=== PATIENT | male | born 1940 | race African-American/Black ===

== ENCOUNTER 2016-09-20 19:22 | Inpatient (IN) | payer MEDICARE, MEDICAID ==
--- NOTE | 2016-09-20 19:42 | ER Document Report ---
ED General - General Stated Complaint: STROKE ALERT Mode of Arrival: Medic Information source: Patient Notes: 75-year-old male history of multiple CVAs presents with sudden left facial droop difficulty with speech difficulty with his swallowing his saliva at 5 PM. Patient denies any fevers or chills is able to follow commands but is unable to express himself verbally. Patient is able to write TRAVEL OUTSIDE OF THE [place] IN LAST 30 DAYS: No - HPI Onset: Just prior to arrival Onset/Duration: Sudden Quality of pain: No pain Severity: Severe Pain Level: Denies Associated symptoms: Other Exacerbated by: Denies Relieved by: Denies Similar symptoms previously: Yes Recently seen / treated by doctor: Yes - Related Data Allergies/Adverse Reactions: No Known Allergies Allergy (Verified 09/20/16 21:14) Past Medical History - Social History Smoking Status: Never Smoker Cigarette use (# per day): No Chew tobacco use (# tins/day): No Smoking Education Provided: No Family History: Reviewed & Not Pertinent - Past Medical History Cardiac Medical History: Reports: Hx Coronary Artery Disease - stent x 1, Hx Heart Attack - 2003, Hx Hypertension, Hx Peripheral Vascular Disease Pulmonary Medical History: Reports: Hx Asthma - as child Denies: Hx Bronchitis, Hx COPD, Hx Pneumonia, Hx Tuberculosis Neurological Medical History: Denies: Hx Cerebrovascular Accident, Hx Seizures Endocrine Medical History: Reports: Hx Diabetes Mellitus Type 2 Renal/ Medical History: Reports: Hx Benign Prostatic Hyperplasia GI Medical History: Denies: Hx Hepatitis, Hx Hiatal Hernia, Hx Ulcer Musculoskeltal Medical History: Denies Hx Arthritis Psychiatric Medical History: Reports: Hx Dementia Denies: Hx Anxiety, Hx Attention Deficit Hyperactivity Disorder, Hx Bipolar Disorder, Hx Borderline Personality Disorder, Hx Depression, Hx Obsessive Compulsive Disorder, Hx Personality Disorder, Hx Schizoaffective Disorder, Hx Schizophrenia Traumatic Medical History: Denies: Hx Fractures, Hx Gunshot Wound, Hx Liver Laceration, Hx Pneumothorax, Hx Spine Fracture, Hx Spleen Laceration/Rupture, Hx Traumatic Brain Injury Infectious Medical History: Denies: Hx Hepatitis Past Surgical History: Reports: Hx Internal Defibrillator, Hx Vascular Surgery - left groin. Denies: Hx Open Heart Surgery - Immunizations Hx Diphtheria, Pertussis, Tetanus Vaccination: No Review of Systems - Review of Systems Notes: PHYSICAL EXAMINATION: GENERAL: Well-appearing, well-nourished and in no acute distress. HEAD: Atraumatic, normocephalic. EYES: Pupils equal round and reactive to light, extraocular movements intact, sclera anicteric, conjunctiva are normal. ENT: Nares patent, oropharynx clear without exudates. Moist mucous membranes. NECK: Normal range of motion, supple without lymphadenopathy LUNGS: Breath sounds clear to auscultation bilaterally and equal. No wheezes rales or rhonchi. HEART: Regular rate and rhythm without murmurs ABDOMEN: Soft, nontender, nondistended abdomen. No guarding, no rebound. No masses appreciated. Musculoskeletal: Normal range of motion, no pitting or edema. No cyanosis. NEUROLOGICAL: Please see NIH score PSYCH: Normal mood, normal affect. SKIN: Warm, Dry, normal turgor, no rashes or lesions noted. Physical Exam - Vital signs Vitals: Resp 17 09/20/16 19:33 Course - Re-evaluation Re-evalutation: 09/20/16 19:41 Patient is having obvious CVA at this time, he has left facial droop hemiparesis , patient's having difficulty with speech. Patient immediately sent to CT after I checked him out at the ambulance. 09/20/16 19:44 I spoke with the patient he is able to write his name and is oriented to person place and time. Patient notes his symptoms started after 5 PM which would put him in the window for thrombolytics however I did offer the patient this and he writes no and shakes his head stating that he does not wish to have this medication. I did ask the patient if he wishes to be intubated if necessary and he states yes by nodding his head to this question. Patient is drooling and may require intubation shortly but is currently protecting his airway called number listed for patient, no response 09/20/16 20:27 09/20/16 21:02 Dr Carter contacted, he will call back 09/20/16 21:52 Patient will be admitted to the hospital service and is not a TPA candidate family agrees with this plan 09/20/16 21:53 - Vital Signs Vital signs: Temp Pulse Resp BP Pulse Ox 20 172/83 H 89 L 09/20/16 21:01 09/20/16 21:01 09/20/16 21:01 - Laboratory Result Diagrams: 09/20/16 19:40 09/20/16 19:40 Laboratory results interpreted by me: 09/20/16 09/20/16 09/20/16 19:40 19:40 19:40 MCH 26.8 L RDW 15.1 H Seg Neutrophils % 83.7 H Lymphocytes % 11.4 L APTT 38.1 H Glucose 202 H - Diagnostic Test Radiology reviewed: Image reviewed, Reports reviewed - EKG Interpretation by Me EKG shows normal: Sinus rhythm, [place], Intervals, QRS Complexes When compared to previous EKG there are: Changes noted - Inverted T wave in V4 has resolved Discharge - Discharge Clinical Impression: Weakness of left side of body Cerebrovascular accident (CVA) Qualifiers: CVA mechanism: unspecified Qualified Code(s): I63.9 - Cerebral infarction, unspecified Condition: Fair Disposition: ADMITTED INPATIENT Admitting Provider: Hospitalist Unit Admitted: [facility]
[2016-09-20 19:51] LABS: ABSOLUTE LYMPHOCYTES (AUTO) 0.5 10^3/uL (0.5-4.7); ABSOLUTE MONOCYTES (AUTO) 0.2 10^3/uL (0.1-1.4); ABSOLUTE NEUT (AUTO) 3.5 10^3/uL (1.7-8.2); BASOPHILS % (AUTO) 0.4 % (0-2); EOSINOPHILS % (AUTO) 0.5 % (0-6); HEMATOCRIT 42.7 % (37.9-51.0); HEMOGLOBIN 14.2 g/dL (13.5-17.0); HGB HCT DIFFERENCE -0.1; LYMPHOCYTES % (AUTO) 11.4 % (13-45); MEAN CORPUSCULAR HEMOGLOBIN 26.8 pg (27.0-33.4); MEAN CORPUSCULAR HGB CONC 33.3 g/dL (32.0-36.0); MEAN CORPUSCULAR VOLUME 80 fl (80-97); RED BLOOD COUNT 5.32 10^6/uL (4.35-5.55); RED CELL DISTRIBUTION WIDTH 15.1 % (11.5-14.0); SEGMENTED NEUTROPHILS % (AUTO) 83.7 % (42-78); WHITE BLOOD COUNT 4.2 10^3/uL (4.0-10.5)
[2016-09-20 19:57] LABS: PROTHROMBIN TIME 14.4 SEC (11.4-15.4)
[2016-09-20 19:58] LABS: PARTIAL THROMBOPLASTIN TIME 38.1 SEC (23.5-35.8)
[2016-09-20 20:15] LABS: ALANINE AMINOTRANSFERASE 37 U/L (21-72); ALBUMIN 3.9 g/dL (3.5-5.0); ALKALINE PHOSPHATASE 77 U/L (38-126); ANION GAP 12 (5-19); ASPARTATE AMINO TRANSFERASE 18 U/L (17-59); BILIRUBIN,TOTAL 0.6 mg/dL (0.2-1.3); BLOOD UREA NITROGEN 18 mg/dL (7-20); CALCIUM 9.8 mg/dL (8.4-10.2); CARBON DIOXIDE 23 mmol/L (22-30); CHLORIDE 105 mmol/L (98-107); CREATINE KINASE 80 U/L (55-170); CREATININE RESULT 0.99 mg/dL (0.52-1.25); GLUCOSE 202 mg/dL (75-110); POTASSIUM 4.6 mmol/L (3.6-5.0); SODIUM 139.5 mmol/L (137-145); TOTAL PROTEIN 7.6 g/dL (6.3-8.2)
[2016-09-20 20:27] LABS: CREATINE KINASE MB 1.49 ng/mL (<4.55); TROPONIN I 0.033 ng/mL
[2016-09-20] MEDS ORDERED: ASPIRIN 325 MG TABLET PO ONE (21:42)
--- NOTE | 2016-09-20 22:14 | ER Document Report ---
ED NIH Stroke Scale - NIH Stroke Scale When completed:: Before Alteplase *: 1. NIH scale should be completed with appropriate accompanying assessment tools. *: 2. The NIH should reflect what the patient is capable of doing and should not be coached by the clinician. 1a. Level of Consciousness: 0=Alert;keenly responsive -: 1=Drowsy -: 2=Obtunded -: 3=Coma/unresponsive or reflex to noxious stimuli. 1a. Responses: 0 1b. Orientation Questions: a. What month is it? -: b. How old are you? -: 0=Answers both questions correctly. -: 1=Answers one question correctly or patient is intubated or has orotracheal trauma. -: 2=Answers neither question correctly. 1b. Responses: 1 1c. Response to commands: a. Open and close eyes? -: b. Wrapper Counter and release hand? -: Credit is given despite weakness. Demonstration of task is permitted. Substitute command if hands cannot be used. -: 0=Performs both tasks correctly -: 1=Performs one task correctly -: 2=Performs neither task correctly 1c. Responses: 1 2. Gaze: Establish eye contact and instruct patient to "Follow my finger" -: 0=Normal -: 1=Partial gaze palsy. Gaze is abnormal in one or both eyes, but where forced deviation or total gaze paresis is not present. -: 2=Forced deviation or total gaze paresis. 2. Responses: 1 3. Visual [place]: Sees fingers in all four quadrants. -: 0=No visual loss. -: 1=Partial hemianopsia. -: 2=Complete hemianopsia. -: 3=Bilateral hemianopsia (including Cortical blindness) 3. Responses: 2 4. Facial Movement: Instruct patient to: -: a. Show me your teeth -: b. Raise your eyebrows -: c. Close your eyes -: d. Smile -: 0=Normal symmetrical movement -: 1=Minor paralysis (flattened nasolabial fold, asymmetry on smiling). -: 2=Partial paralysis (total or near total paralysis of lower face). -: 3=Complete paralysis of upper and lower face 4. Responses: 2 5. Motor functions (left arm): Alternate sides and extend each arm with palms down (90 degrees if sitting or 45 degrees for supine). -: 0=No drift;limb holds for full 10 seconds. -: 1=Drift; limb holds but drifts down before full 10 seconds, but does not hit bed. -: 2=Some effort against gravity; limb cannot get to or maintain position. -: 3=No effort against gravity; limb falls. -: 4=No movement. -: UN=Amputation, joint fusion, explain in comments. 5. Responses (left arm): 4 5. Motor Functions (right arm): Alternate sides and extend each arm with palms down (90 degrees if sitting or 45 degrees for supine). -: 0=No drift;limb holds for full 10 seconds. -: 1=Drift; limb holds but drifts down before full 10 seconds, but does not hit bed. -: 2=Some effort against gravity; limb cannot get to or maintain position. -: 3=No effort against gravity; limb falls. -: 4=No movement. -: UN=Amputation, joint fusion, explain in comments. 5. Responses (right arm): 0 6. Motor Functions (left leg): With patient lying supine, alternate sides and extend each leg (30 degrees always while supine). -: 0=No drift, leg holds position for full 5 seconds -: 1=Drift; leg falls before full 5 seconds but does not hit bed. -: 2=Some effort against gravity, leg falls to bed but some effort against gravity. -: 3=No effort against gravity, leg falls to bed immediately. -: 4=No movement. -: UN=Amputation, joint fusion; explain in comments. 6. Responses (left leg): UN 6. Motor Functions (right leg): With patient lying supine, alternate sides and extend each leg (30 degrees always while supine). -: 0=No drift, leg holds position for full 5 seconds -: 1=Drift; leg falls before full 5 seconds but does not hit bed. -: 2=Some effort against gravity, leg falls to bed but some effort against gravity. -: 3=No effort against gravity, leg falls to bed immediately. -: 4=No movement. -: UN=Amputation, joint fusion; explain in comments. 6. Responses (right leg): 0 7. Limb Ataxia: With eyes open instruct patient to: -: a. "Touch your finger to your nose". -: b. "Touch your heel to your dinh" -: 0=Absent -: 1=Present in one limb. -: 2=Present in two limbs. -: UN=Amputation or joint fusion; explain in comments. 7. Responses: 1 7. If ataxia present choose as appropriate: Left arm, Left leg 8. Sensory: Test sensation using pinprick or noxious stimuli. Test as many body parts as possible. -: 0=Normal;no sensory loss -: 1=Mile to moderate sensory loss (patient feels pin prick but is less sharp on affected side). -: 2=Severe or total sensory loss. 8. Responses: 1 9. Best Language: Instruct patient to: -: a. "Describe what you see in this picture." -: b. "Name the items in this picture." -: c. "Read these sentences." -: 0=No aphasia, normal -: 1=Mild to moderate aphasia. -: 2=Severe aphasia -: 3=Mute, global aphasia, no usable speech or auditory comprehension. 9. Responses: 3 10. Articulation, Dysarthia: Instruct patient to: -: "Read these words" or "Repeat these words" -: 0=Normal -: 1=Mild to moderate; patient may slur some words but can be understood without difficulty. -: 2=Severe; patients speech so slurred as to be unintelligible in the absence of dysphasia. -: UN=Intubated or other physical barrier, explain in comments. 10. Responses: 2 11. Extinction or inattention: 0=No abnormality -: 1= Visual, tactile, auditory, spatial, or personal inattention or extinction to bilateral simulation in one or the sensory modalities. -: 2=Profound husam-inattention or husam-inattention to more than one modality; does not recognize own hand. 11. Responses: 2 Total Score: 20
[2016-09-21] MEDS ORDERED: GLUCAGON,HUMAN RECOMB 1 MG INJ IM PRN (03:23)
[2016-09-21] MEDS ORDERED: DEXTROSE 50%-WATER 25 GM/50 ML DISP.SYRIN IV PRN ×2 (03:23)
[2016-09-21] MEDS ORDERED: NORMAL SALINE 1000 ML 1,000 ML IV PRN (03:23)
[2016-09-21] MEDS ORDERED: DEXTROSE 40% GEL 15 GM TUBE PO PRN ×2 (03:23)
[2016-09-21] MEDS ORDERED: INSULIN LISPRO 100 UNIT/ML 3 ML VIAL SUBCUT PRN (03:23)
[2016-09-21] MEDS ORDERED: ACETAMINOPHEN 650 MG SUPP.RECT PR PRN (03:25)
[2016-09-21 06:45] LABS: CHOLESTEROL 166.88 mg/dL (0-200); Direct HDL 54 mg/dL (>40); MAGNESIUM 1.9 mg/dL (1.6-2.3); TRIGLYCERIDES 46 mg/dL (<150)
[2016-09-21 06:55] LABS: DIRECT LDL 80 mg/dL (<100)
[2016-09-21 06:58] LABS: APPEARANCE,URINE SLIGHTLY-CLOUDY; BILIRUBIN,URINE NEGATIVE (NEGATIVE); GLUCOSE, URINE NEGATIVE (NEGATIVE); KETONES,URINE NEGATIVE (NEGATIVE); LEUKOCYTE ESTERASE,URINE LARGE (NEGATIVE); NITRITE,URINE NEGATIVE (NEGATIVE); PROTEIN,URINE 100 mg/dL (NEGATIVE); URINE SPECIFIC GRAVITY 1.008; UROBILINOGEN,URINE NEGATIVE mg/dL (<2.0)
[2016-09-21] MEDS: ENOXAPARIN SODIUM INJ 40 MG/0.4 ML DISP.SYRIN SUBCUT SCH (08:00)
--- NOTE | 2016-09-21 09:53 | PDOC H&P ---
History of Present Illness Admission Date/PCP: 09/20/16 22:08 Patient complains of: Stroke Symptoms History of Present Illness: SEUN TOTH is a 75 year old -[place] male with a history of prior strokes who presented to the emergency room for evaluation of sudden onset of left facial droop, aphasia, and difficulty swallowing his saliva at approximate 5 PM on the . Patient denied any fever chills. Was able to follow commands, but unable to express himself verbally. Was initially able to write on a tablet. Was offered TPA by the emergency room physician, but declined. Patient has been discussed with emergency room physician who evaluated the patient. Patient is completely aphasic and is able to provide no history whatsoever in terms of acute or chronic events, review of systems, personal habits, family history, etc. No friends or family are present. Old inpatient records are reviewed. When patient does write on a piece of paper currently, it typically is the same 3 or 4 letters over and over. Never forms an actual word. Patient does shake his head when asked if he is having any pain. Patient did pass along to the emergency room physician that he would be willing to be intubated if necessary. . No further information available this point in time. Laboratory results are listed in [facility] and are reviewed. X-ray summary results are listed below, with full report(s) reviewed. . EKG reviewed and compared to a tracing from July 17 of last year Social history/personal habits: No information available this point in time. Allergies/adverse reactions NKDA. Home medications Home medications initially autopopulated into [employer] Dashboard may not accurately reflect patient's true medications, dosages, and/or frequencies. Order has been entered for staff to contact family, outpatient physician, and/ or pharmacy to more accurately determine medications, dosages, and frequencies and to contact physician when that has been accomplished. REVIEW OF SYSTEMS: See history and present illness. No further information available this point in time. PHYSICAL EXAMINATION: 6 feet 3 inches tall. 83.3 kg. BMI 23 kg/m. After 98.8. Blood pressure 140/ 66. Pulse 111 and regular. 92% saturation on 2 L oxygen per nasal cannula. Respirations are 25 and unlabored. Thin otherwise well-developed elderly -[place] male who appears a number of years younger than his stated age. Awake alert and cooperative. Somewhat anxious, but no agitation. Appears perhaps slightly fatigued, and overall not to feel very well. Skin is warm and dry. No grossly obvious evidence of rash in areas of skin examined. No subcutaneous nodules palpated. ENT: Hearing difficult to adequately evaluate due to his current status, but does look at speaker when addressed in a normal volume voice Eyes: No scleral icterus. Pupils equal and reactive to light at 4 mm. [place] conjunctivae. Neck is supple and nontender to gentle active range of motion and palpation. Midline trachea. No palpable thyroid nodule mass enlargement or tenderness. Lymphatic: No palpable cervical or clavicular nodes. Neck and lymphatic exams limited by patient body habitus. Psychiatric: Can't be adequately evaluated due to his current status. Lungs: Auscultation reveals clear and equal breath sounds bilaterally. No use of accessory respiratory muscles. Mild upper airway sounds from patient saliva. Cardiovascular: Heart regular rate and rhythm, without gallop murmur or rub. No carotid or abdominal aortic bruits. Minimal right ankle and pedal edema. Faintly palpable dorsalis pedis pulse. Abdomen: soft, , slightly distended nontender with positive bowel sounds. Unable to adequately evaluate abdomen for masses or organomegaly due to distention. Extremities: Hands and right foot are warm and dry. No right calf tenderness to compression. No grossly obvious visual evidence of right calf swelling. Gentle manipulation of right lower extremity fails to reveal any obvious evidence of injury or instability to knee hip or ankle.. Status post left BKA, with compression sock in place. This is left in place. Neurologic: Cranial Nerves II through XII can't be adequately evaluated due to his current status. Light touch can't be adequately evaluated due to his current status. Motor function of major muscle groups right upper and lower extremities 5 over 5 . Flaccid left upper extremity. Minimal movement of left lower extremity. Right patellar reflex absent. Absent Babinski. Moderate left facial drooping. Past Medical History Cardiac Medical History: Reports: Coronary Artery Disease - stent x 1, Myocardial Infarction - 2004, Hypertension, Peripheral Vascular Disease Pulmonary Medical History: Reports: Asthma - as child Denies: Bronchitis, Chronic Obstructive Pulmonary Disease (COPD), Pneumonia, Tuberculosis Neurological Medical History: Reports: Ischemic CVA Denies: Seizures Endocrine Medical History: Reports: Diabetes Mellitus Type 2 GI Medical History: Denies: Hepatitis, Hiatal Hernia Musculoskeltal Medical History: Denies: Arthritis Psychiatric Medical History: Reports: Dementia Denies: Attention Deficit Hyperactivity Disorder, Bipolar Disorder, Depression, Personality Disorder, Schizoaffective Disorder Traumatic Medical History: Denies: Gunshot Wound, Pneumothorax, Traumatic Brain Injury Hematology: Denies: Anemia, Sickle Cell Disease Past Surgical History Past Surgical History: Reports: Internal Defibrillator, Orthopedic Surgery - left BKA, Vascular Surgery - left groin Social History Information Source: [facility] Personnel[facility] Smoking Status: Never Smoker Frequency of Alcohol Use: None Hx Recreational Drug Use: No Hx Prescription Drug Abuse: No - Advance Directive Resuscitation Status: Full Code Surrogate healthcare decision maker:: Uncertain at this point in time. Family History Family History: Reviewed & Not Pertinent Parental Family History Reviewed: No - No [further] information available this point in time. Children Family History Reviewed: No - No [further] information available this point in time. Sibling(s) Family History Reviewed.: No - No [further] information available this point in time. Medication/Allergy Home Medications: RX: Metformin HCl [Glucophage] 500 mg PO BIDACBS 09/21/16 RX: Tamsulosin HCl [Flomax 0.4 mg Cap.sr] 0.4 mg PO DAILY 09/21/16 RX: Travoprost [Travatan Z] 1 drop OD QHS 09/21/16 RX: Acetaminophen [Tylenol 650 mg Supp] 650 mg NH Q4HP PRN supp.rect 09/25/16 RX: Aspirin [Aspirin 81 mg Chewable Tablet] 81 mg NG DAILY tab.chew 09/25/16 RX: Atorvastatin Calcium [Lipitor 10 mg Tablet] 10 mg NG DAILY tablet 09/25/16 RX: Carvedilol [Coreg 6.25 mg Tablet] 6.25 mg NG Q12 tablet 09/25/16 RX: Clopidogrel Bisulfate [Plavix 75 mg Tablet] 75 mg NG DAILY tablet 09/25/16 RX: Folic Acid [Folvite 1 mg Tablet] 1 mg NG DAILY tablet 09/25/16 RX: Latanoprost [Xalatan 0.005% Oph Soln 2.5 ml] 1 drop OD QHS bottle 09/25/16 RX: Lisinopril [Prinivil 5 mg Tablet] 5 mg NG DAILY tablet 09/25/16 Allergies/Adverse Reactions: No Known Allergies Allergy (Verified 09/20/16 21:14) Physical Exam Vital Signs: Temp Pulse Resp BP Pulse Ox 98.8 F 104 H 20 134/73 H 91 L 09/20/16 22:48 09/20/16 22:31 09/20/16 22:31 09/20/16 22:31 09/20/16 22:31 Intake & Output 09/20/16 09/21/16 09/22/16 00:59 00:59 01:59 Weight 83.3 kg Results Impressions: Chest X-Ray 09/20/16 19:24 IMPRESSION: NO SIGNIFICANT RADIOGRAPHIC FINDING IN THE CHEST. Head CT 09/20/16 19:24 IMPRESSION: Chronic appearing intracranial changes, old left infarcts. No right sided acute infarct identified by CT, followup repeat CT over time may be warranted or MRI with diffusion-weighted imaging. Pertinent positive or negative findings of the imaging study reported as a CRITICAL EXAM to CARMEN HIDALGO DO at19:37 on 09/20/2016. Category of Critical Exam: Stroke alert Assessment & Plan - Diagnosis (1) Acute focal neurological deficit Is this a current diagnosis for this admission?: YesPlan: Patient will be admitted under CVA/TIA protocol. Multiple imaging procedures, intracranial, vascular, and cardiac. lipid panel. Patient is status post AICD implant, which will necessarily prevent MR studies. Repeat CT of head without contrast to be ordered. Permissive hypertension. Patient is a full code. I have strongly urged patient not to get out of bed , to avoid a fall with injury. Knee high SCDs for DVT prophylaxis, along with subcutaneous Lovenox . Impression and plans were discussed with patient, who concurs. Time spent in evaluation and management of patient: 56 minutes (2) Aphasia Is this a current diagnosis for this admission?: Yes (3) Facial droop due to stroke Is this a current diagnosis for this admission?: Yes (4) Left-sided weakness Is this a current diagnosis for this admission?: Yes (5) HTN (hypertension) Qualifiers: Hypertension type: essential hypertension Qualified Code(s): I10 - Essential (primary) hypertension Is this a current diagnosis for this admission?: YesPlan: Permissive hypertension. - Inpatient Certification Based on my medical assessment, after consideration of the patient's comorbidities, presenting symptoms, or acuity I expect that the services needed warrant INPATIENT care.: Yes I certify that my determination is in accordance with my understanding of Medicare's requirements for reasonable and necessary INPATIENT services [42 CFR 412.3e].: Yes Medical Necessity: Need Close Monitoring Due to Risk of Patient Decompensation, Need For IV Fluids, Need For Continuous Telemetry Monitoring, Need for Neurological Checks, Risk of Complication if Not Cared For in Hospital, Risk of Diagnosis Which Will Require Inpatient Eval/Care/Monitoring Post Hospital Care: D/C or Transfer Summary
[2016-09-21] MEDS: ASPIRIN 300 MG SUPP, RECTAL PR SCH (14:05)
[2016-09-21] MEDS ORDERED: METOPROLOL TARTRATE PF/INJ 5 MG/5 ML SDV IV PRN (14:38)
--- NOTE | 2016-09-21 14:55 | PDOC PROGRESS REPORT ---
Subjective Progress Note for:: 09/21/16 Subjective:: No new issues reported. I cannot obtain history from patient as he is completely aphasic. He seems to deny any pain. Physical Exam Vital Signs: Temp Pulse Resp BP Pulse Ox 98.4 F 93 18 150/81 H 97 09/21/16 13:13 09/21/16 11:46 09/21/16 13:02 09/21/16 13:02 09/21/16 13:02 GENERAL: No acute distress HEENT: Conjunctiva clear, nonicteric, moist mucous membranes, no JVD, midline trachea RESPIRATORY: Clear to auscultation bilaterally, no wheezes, no rhonchi CARDIAC: Regular rate and rhythm, no murmurs/gallops/rubs ABDOMEN: Soft, nondistended, nontender, positive bowel sounds, no rebound, no guarding EXTREMETIES: Left leg amputation, right first toe amputation NEUROLOGIC: Alert, expressive aphasia, facial droop, able to move all extremities SKIN: No rash, wounds PSYCH: Normal mood, normal affect Results Laboratory Results: 09/21/16 09/21/16 06:11 06:40 Magnesium 1.9 Triglycerides 46 Cholesterol 166.88 LDL Cholesterol Direct 80 VLDL Cholesterol 9.0 L HDL Cholesterol 54 Urine Color YELLOW Urine Appearance SLIGHTLY-CLOUDY Urine pH 6.0 Ur Specific [place] 1.008 Urine Protein 100 H Urine Glucose (UA) NEGATIVE Urine Ketones NEGATIVE Urine Blood MODERATE H Urine Nitrite NEGATIVE Ur Leukocyte Esterase LARGE H Urine WBC (Auto) 70 Urine RBC (Auto) 18 Impressions: Chest X-Ray 09/20/16 19:24 IMPRESSION: NO SIGNIFICANT RADIOGRAPHIC FINDING IN THE CHEST. Head CT 09/20/16 19:24 IMPRESSION: Chronic appearing intracranial changes, old left infarcts. No right sided acute infarct identified by CT, followup repeat CT over time may be warranted or MRI with diffusion-weighted imaging. Pertinent positive or negative findings of the imaging study reported as a CRITICAL EXAM to CARMEN HIDALGO DO at19:37 on 09/20/2016. Category of Critical Exam: Stroke alert Assessment & Plan - Diagnosis (1) CVA (cerebral vascular accident) Qualifiers: CVA mechanism: unspecified Qualified Code(s): I63.9 - Cerebral infarction, unspecified Is this a current diagnosis for this admission?: YesPlan: Continue rectal aspirin for now. Unable to obtain MRI secondary to AICD/pacer. Repeat head CT at 48 hours. PT/OT/ST to evaluate. Resume patient's Lipitor 10 mg daily once able to take oral intake. If patient doesn't pass swallow evaluation we may have to place NG tube for medications. (2) Diabetes Is this a current diagnosis for this admission?: YesPlan: Hold metformin secondary to nothing by mouth status. Sliding scale insulin. (3) Aphasia Is this a current diagnosis for this admission?: YesPlan: Secondary to acute stroke. Speech therapy to evaluate for this as well as dysphagia. (4) CAD (coronary artery disease) Is this a current diagnosis for this admission?: YesPlan: Continue rectal aspirin. Resume Lipitor and Coreg once patient able take oral intake. (5) HTN (hypertension) Qualifiers: Hypertension type: essential hypertension Qualified Code(s): I10 - Essential (primary) hypertension Is this a current diagnosis for this admission?: Yes (6) History of left below knee amputation Is this a current diagnosis for this admission?: Yes (7) Peripheral vascular disease Is this a current diagnosis for this admission?: Yes - Time Time Spent with patient: 35 or more minutes
--- NOTE | 2016-09-21 20:15 | EKG REPORT ---
SEVERITY:- ABNORMAL ECG - SINUS TACHYCARDIA MULTIPLE VENTRICULAR PREMATURE COMPLEXES PROBABLE LEFT ATRIAL ABNORMALITY PROBABLE INFERIOR INFARCT, AGE INDETERMINATE LATERAL LEADS ARE ALSO INVOLVED BORDERLINE PROLONGED QT INTERVAL : Confirmed by: Marcy Herndon 21-Sep-2016 20:14:39
[2016-09-22] MEDS: ENOXAPARIN SODIUM INJ 40 MG/0.4 ML DISP.SYRIN SUBCUT SCH (08:12)
[2016-09-22] MEDS: ASPIRIN 300 MG SUPP, RECTAL PR SCH (14:22)
--- NOTE | 2016-09-22 15:07 | ST Inp Modified Barium Swallow ---
Medical Diagnosis - Medical Diagnoses Medical Diagnosis Description & ICD-10 Code(s): acute focal neurological deficit - ICD-10 Tx Diagnosis Coding (1) Dysphagia due to recent cerebral infarction ICD-10 Code(s): I69.391 - DYSPHAGIA FOLLOWING CEREBRAL INFARCTION (2) Dysphagia, late effect of cerebrovascular disease ICD-10 Code(s): I69.991 - DYSPHAGIA FOLLOWING UNSPECIFIED CEREBROVASCULAR DISEASE (3) Dysphagia, oral phase ICD-10 Code(s): R13.11 - DYSPHAGIA, ORAL PHASE (4) Dysphagia, oropharyngeal ICD-10 Code(s): R13.12 - DYSPHAGIA, OROPHARYNGEAL PHASE (5) Dysphagia, pharyngeal ICD-10 Code(s): R13.13 - DYSPHAGIA, PHARYNGEAL PHASE (6) Acute focal neurological deficit ICD-10 Code(s): R29.818 - OTHER SYMPTOMS AND SIGNS INVOLVING THE NERVOUS SYSTEM (7) Aphasia ICD-10 Code(s): R47.01 - APHASIA (8) CVA (cerebral vascular accident) ICD-10 Code(s): I63.9 - CEREBRAL INFARCTION, UNSPECIFIED (9) Diabetes ICD-10 Code(s): E11.9 - TYPE 2 DIABETES MELLITUS WITHOUT COMPLICATIONS (10) Facial droop due to stroke ICD-10 Code(s): I63.9 - CEREBRAL INFARCTION, UNSPECIFIED R29.810 - FACIAL WEAKNESS (11) Left-sided weakness ICD-10 Code(s): R53.1 - WEAKNESS (12) Peripheral vascular disease ICD-10 Code(s): I73.9 - PERIPHERAL VASCULAR DISEASE, UNSPECIFIED (13) CAD (coronary artery disease) ICD-10 Code(s): I25.10 - ATHSCL HEART DISEASE OF [place] CORONARY ARTERY W/O ANG PCTRS (14) HTN (hypertension) ICD-10 Code(s): I10 - ESSENTIAL (PRIMARY) HYPERTENSION (15) History of CVA (cerebrovascular accident) ICD-10 Code(s): Z86.73 - PRSNL HX OF TIA (TIA), AND CEREB INFRC W/O RESID DEFICITS ST Inpatient MBS - General Date: 09/22/16 Date of Onset: 09/20/16 - History History Obtained From: Other - EMR -: Medical - ST reviewed draft of history & physical. Significant for: history of multiple strokes, as well as coronary artery disease, myocardial infarction, hypertension, peripheral vascular disease, diabetes, and dementia. Presenting with facial droop, left sided weakness, & hypertension. Patient received clinical dysphagia evaluation 09/21/16 with recommendation for continued NPO status due to severe cough after thin & high risk of aspiration., Other - Communication - Patient communicating through head nods & shakes; as well as use of thumbs up gesture. Medications: Medications Reviewed Allergies: No known allergies - Subjective Current Nutritional Means: NPO Current PO Diet: N/A (NPO) Current Symptoms: Aspiration Pain: 0/5 - Objective Assessment: Upright, Left Lateral - Food Trials Food Trials Used: Thin liquids, Pureed - no other consistencies offered for patient safety The Patient: Required Assist, fed by ST, via spoon - Assessment Labial Function: Impaired Lingual Function: Impaired Mandibular Function: Impaired Dentition: Edentulous Velo-Pharyngeal Function: Not assessed - Pharyngeal Stage Initiation of Pharyngeal Stage: Delayed Decreased Laryngeal Elevation: Yes Reduced Velo-Pharyngeal Closure: yes Reduced Pressure Generation: Yes Reduced Tongue Base Retraction: Yes Pre-Swallowing Pooling in Valleculae: Moderate Pre-Swallowing Pooling in Pyriforms: Mild Reduced Thyro-Hyiod Approximation: Yes Reduced Epiglottic Excursion: Yes Reduced Pharyngeal Peristalsis: Yes Multiple Swallows With: Ineffective Clearance Post Swallow Residuals: throughout pharynx - Impression/Summary Laryngeal Penetration: Yes Tracheal Aspiration: yes Productive Cough: Yes - delayed cough Effective Clearing: no Patient Presents With: Oral stage dysphagia, Pharyngeal stage dysph., Oral- Pharyngeal dysph., Profound Risk of Aspiration: Severe Risk of Nutritional Compromise: Severe - Recommendations NPO: yes Dysphagia Therapy with TAI CHI INSTRUCTOR: No - at this time patient has difficulty initiating volitional swallow, limited tongue movement, & likely to aspirate all consistencies offered for PO trials. Suction currently required to manage own secretions. Do not recommend therapy until patient able to manage own secretions without use of suction. ST to follow up for communication evaluation - patient may be a candidate for communication board. Other Recommendations: Recommend continue NPO with consideration of alternate means of nutrition. Patient demonstrates PROFOUND oral, cristela-pharyngeal, pharyngeal dysphagia resulting in difficulty managing secretions, delayed swallow, anterior oral loss, and aspiration after the swallow. Patient demonstrated weakness and limited movement at all stages of swallow. Patient able to initiate volitional swallow, but with difficulty & delay. Unable to clear residuals post-swallow. Increasing residuals and higher amount of aspiration with puree. After study, suction had to be provided as patient demonstrated significant delayed cough with expulsion of puree & likely mixed with thin liquid or residuals. ST communicated results and recommendations to Dr. Oneal via PSS. - Time Total Time: 15 Total Timed Minutes: 0 ST F.L. Impairment Category - Rationale Based On Rationale Based On: Clin Find., Obj Measures - Swallowing Current G8996: CM 80-99% Impaired Goal G8997: CM 80-99% Impaired Discharge G8998: CM 80-99% Impaired
--- NOTE | 2016-09-22 17:50 | XCELERA REPORT ---
[address] [address] Transthoracic Echocardiogram Report Name: SEUN TOTH Age: 75 yrs Gender: Male : 1940 Patient Status: Inpatient Patient Location: [id number] Study Date: 09/22/2016 09:59 AM Height: 75 in Weight: 183 lb BSA: 2.1 m2 Procedure: A two-dimensional transthoracic echocardiogram with color flow and Doppler was performed. The study was technically difficult with many images being suboptimal in quality. Reason For Study: cva vs tia History: TIA. Ordering Physician: MEHDI MAGÑAA Performed By: Lupe Flores Interpretation Summary There is no obvious cardiac source of embolus noted on this transthoracic echocardiogram. Follow-up with a CHARI is suggested if cardiac source is still suspected. The left ventricle is mildly dilated. There is moderate concentric left ventricular hypertrophy. LV EF is 35% Left ventricular systolic function is moderately reduced. Doppler measurements suggest impaired left ventricular relaxation, which is associated with grade I/IV or mild diastolic dysfunction There is moderate global hypokinesis of the left ventricle. There is no thrombus. The left atrium is mildly dilated. There is no evidence of mitral valve prolapse. There is no mitral valve stenosis. There is no mitral regurgitation noted. There is mild aortic stenosis There is a peak gradient of 18 mm of Hg. There is no tricuspid stenosis. Probably trace to mild TR.No TR jet value obtained , hence cannot calculate RVSP. There is no pericardial effusion. There is no obvious cardiac source of embolus noted on this transthoracic echocardiogram. Follow-up with a CHARI is suggested if cardiac source is still suspected MMode/2D Measurements \T\ Calculations RVDd: 2.7 cm LVIDd: 5.4 cmFS: 21.0 % Ao root diam: 3.4 cm IVSd: 1.7 cm LVIDs: 4.3 cmEDV(Teich): 143.8 ml LVPWd: 1.7 cmESV(Teich): 83.0 ml Ao root area: 8.8 cm2 EF(Teich): 42.3 % LA dimension: 4.2 cm LVOT diam: 2.6 cm LVOT area: 5.3 cm2 Doppler Measurements \T\ Calculations MV E max janice: MV P1/2t max janice: Ao V2 max: LV V1 max P.7 cm/sec 64.7 cm/sec 211.4 cm/sec 2.1 mmHg MV A max janice: MV P1/2t: 37.7 msec Ao max PG: LV V1 max: 95.3 cm/sec MVA(P1/2t): 5.8 cm2 17.9 mmHg 71.9 cm/sec MV E/A: 0.67 MV dec slope: GLORIA(V,D): 1.8 cm2 502.3 cm/sec2 MV dec time: 0.13 sec PA V2 max: 79.5 cm/sec PA max P.5 mmHg Left Ventricle The left ventricle is mildly dilated. There is moderate concentric left ventricular hypertrophy. LV EF is 35%. Left ventricular systolic function is moderately reduced. Doppler measurements suggest impaired left ventricular relaxation, which is associated with grade I/IV or mild diastolic dysfunction. There is moderate global hypokinesis of the left ventricle. There is no thrombus. Right Ventricle The right ventricle is grossly normal size. Atria The right atrium is normal. The left atrium is mildly dilated. Mitral Valve There is no evidence of mitral valve prolapse. There is no vegetation seen on the mitral valve. There is no mitral valve stenosis. There is no mitral regurgitation noted. Aortic Valve There is no aortic valvular vegetation. There is mild aortic stenosis. There is a peak gradient of 18 mm of Hg. No aortic regurgitation is present. Tricuspid Valve There is no tricuspid stenosis. Probably trace to mild TR.No TR jet value obtained , hence cannot calculate RVSP. Pulmonic Valve There is no pulmonic valvular stenosis. There is no pulmonic valvular regurgitation. Great Vessels The aortic root is not well visualized. Effusions There is no pericardial effusion. : MEHDI MAGAÑA > Tika Dent
[2016-09-22] MEDS ORDERED: PHARMACY COMMUNICATION ORDER MC NR (19:00)
--- NOTE | 2016-09-22 19:02 | PDOC PROGRESS REPORT ---
Subjective Progress Note for:: 09/22/16 Subjective:: No new issues reported. I cannot obtain history from patient as he is completely aphasic. He seems to deny any pain. Physical Exam Vital Signs: Temp Pulse Resp BP Pulse Ox 97.7 F 72 18 153/74 H 100 09/22/16 15:35 09/22/16 16:00 09/22/16 16:00 09/22/16 16:00 09/22/16 16:00 Intake & Output 09/21/16 09/22/16 09/23/16 06:59 06:59 06:59 Intake Total 384 755 Output Total 1375 400 Balance -991 355 Weight 81 kg GENERAL: No acute distress HEENT: Conjunctiva clear, nonicteric, moist mucous membranes, no JVD, midline trachea RESPIRATORY: Clear to auscultation bilaterally, no wheezes, no rhonchi CARDIAC: Regular rate and rhythm, no murmurs/gallops/rubs ABDOMEN: Soft, nondistended, nontender, positive bowel sounds, no rebound, no guarding EXTREMETIES: Left leg amputation, right first toe amputation NEUROLOGIC: Alert, expressive aphasia, facial droop, able to move all extremities SKIN: No rash, wounds PSYCH: Normal mood, normal affect Results Impressions: Chest X-Ray 09/20/16 19:24 IMPRESSION: NO SIGNIFICANT RADIOGRAPHIC FINDING IN THE CHEST. Head CT 09/20/16 19:24 IMPRESSION: Chronic appearing intracranial changes, old left infarcts. No right sided acute infarct identified by CT, followup repeat CT over time may be warranted or MRI with diffusion-weighted imaging. Pertinent positive or negative findings of the imaging study reported as a CRITICAL EXAM to CARMEN HIDALGO DO at19:37 on 09/20/2016. Category of Critical Exam: Stroke alert Assessment & Plan - Diagnosis (1) CVA (cerebral vascular accident) Qualifiers: CVA mechanism: unspecified Qualified Code(s): I63.9 - Cerebral infarction, unspecified Is this a current diagnosis for this admission?: YesPlan: Aspirin 81 mg daily. Resume Plavix 75 mg daily. Unable to obtain MRI secondary to AICD/pacer. Repeat head CT in a.m. PT/OT/ST. Resume patient's Lipitor 10 mg daily per NG tube. Continue DVT prophylaxis with Lovenox. (2) Diabetes Is this a current diagnosis for this admission?: YesPlan: Hold metformin secondary to nothing by mouth status. Sliding scale insulin. (3) Aphasia Is this a current diagnosis for this admission?: YesPlan: Secondary to acute stroke. Speech therapy to evaluate for this as well as dysphagia. (4) CAD (coronary artery disease) Is this a current diagnosis for this admission?: YesPlan: Continueaspirin. Resume Plavix, Lipitor, Coreg. (5) HTN (hypertension) Qualifiers: Hypertension type: essential hypertension Qualified Code(s): I10 - Essential (primary) hypertension Is this a current diagnosis for this admission?: YesPlan: Resume Coreg, lisinopril. When necessary IV Lopressor. (6) History of left below knee amputation Is this a current diagnosis for this admission?: Yes (7) Peripheral vascular disease Is this a current diagnosis for this admission?: Yes (8) Dysphagia, oropharyngeal Is this a current diagnosis for this admission?: YesPlan: Place NG tube. Start tube feeding. Continue IV fluids at 60 mL per hour until tube feeding at goal. Speech therapy following. Consult dietitian. - Time Time Spent with patient: 35 or more minutes
[2016-09-22] MEDS ORDERED: (PENDING PHARMACY ID) (Travoprost [Travatan Z] 1 DROP) OD SCH (22:00)
[2016-09-22] MEDS: LATANOPROST 0.005% OPH SOLN 2.5 ML OD SCH (22:16)
[2016-09-22] MEDS: NORMAL SALINE 1000 ML 1,000 ML IV PRN (22:19)
[2016-09-22] MEDS: CARVEDILOL 6.25 MG TABLET NG SCH (22:24)
[2016-09-23 04:34] LABS: ABSOLUTE EOSINOPHILS # (AUTO) 0.1 10^3/uL (0.0-0.6); ABSOLUTE LYMPHOCYTES (AUTO) 0.8 10^3/uL (0.5-4.7); ABSOLUTE MONOCYTES (AUTO) 0.4 10^3/uL (0.1-1.4); ABSOLUTE NEUT (AUTO) 4.8 10^3/uL (1.7-8.2); BASOPHILS % (AUTO) 0.5 % (0-2); EOSINOPHILS % (AUTO) 1.2 % (0-6); HEMATOCRIT 44.4 % (37.9-51.0); HEMOGLOBIN 14.7 g/dL (13.5-17.0); HGB HCT DIFFERENCE -0.3; LYMPHOCYTES % (AUTO) 13.7 % (13-45); MEAN CORPUSCULAR HEMOGLOBIN 26.8 pg (27.0-33.4); MEAN CORPUSCULAR HGB CONC 33.2 g/dL (32.0-36.0); MEAN CORPUSCULAR VOLUME 81 fl (80-97); MONOCYTES % (AUTO) 6.6 % (3-13); RED BLOOD COUNT 5.49 10^6/uL (4.35-5.55); RED CELL DISTRIBUTION WIDTH 15.8 % (11.5-14.0); WHITE BLOOD COUNT 6.2 10^3/uL (4.0-10.5)
[2016-09-23 04:48] LABS: ANION GAP 10 (5-19); BLOOD UREA NITROGEN 22 mg/dL (7-20); CALCIUM 9.6 mg/dL (8.4-10.2); CARBON DIOXIDE 20 mmol/L (22-30); CHLORIDE 115 mmol/L (98-107); CREATININE RESULT 0.91 mg/dL (0.52-1.25); GLUCOSE 86 mg/dL (75-110); POTASSIUM 4.5 mmol/L (3.6-5.0); SODIUM 145.4 mmol/L (137-145)
[2016-09-23] MEDS ORDERED: CLOPIDOGREL BISULFATE 75 MG TABLET NG SCH (10:00)
[2016-09-23] MEDS: ENOXAPARIN SODIUM INJ 40 MG/0.4 ML DISP.SYRIN SUBCUT SCH (10:39)
[2016-09-23] MEDS: ASPIRIN 81 MG TABLET, CHEWABLE NG SCH (10:56)
[2016-09-23] MEDS: LISINOPRIL 5 MG TABLET NG SCH (10:56)
[2016-09-23] MEDS: ATORVASTATIN CALCIUM 10 MG TABLET NG SCH (10:56)
[2016-09-23] MEDS: CARVEDILOL 6.25 MG TABLET NG SCH ×2 (10:56→22:34)
[2016-09-23] MEDS: FOLIC ACID 1 MG TABLET NG SCH (10:56)
--- NOTE | 2016-09-23 13:21 | PDOC PROGRESS REPORT ---
Subjective Progress Note for:: 09/23/16 Subjective:: Patient seen on morning rounds. He is presently resting in bed. He does awaken to verbal stimuli. He does follow commands with his left extremities. Right extremities remained flaccid. He remains aphasic and he does communicate at times by writing notes. He denies any pain, shortness of breath or dyspnea. He has failed swallowing of evaluation at bedside as well as modified barium swallow. Attempts to place feeding tube by nursing were unsuccessful after multiple attempts. Presently is no family at bedside. Physical Exam Vital Signs: Temp Pulse Resp BP Pulse Ox 98.4 F 73 16 129/61 H 92 09/23/16 07:36 09/23/16 07:36 09/23/16 07:36 09/23/16 07:36 09/23/16 07:36 Intake & Output 09/22/16 09/23/16 09/24/16 06:59 06:59 06:59 Intake Total 384 1447 Output Total 1375 1300 Balance -991 147 Weight 81 kg 82.3 kg General appearance: PRESENT: no acute distress, thin, well-developed, well- nourished Head exam: PRESENT: atraumatic, normocephalic Eye exam: PRESENT: conjunctiva pink, EOMI, PERRLA. ABSENT: scleral icterus Ear exam: PRESENT: normal external ear exam Mouth exam: PRESENT: moist, tongue midline Neck exam: ABSENT: carotid bruit, JVD, lymphadenopathy, thyromegaly Respiratory exam: PRESENT: clear to auscultation joaquin. ABSENT: rales, rhonchi, wheezes Cardiovascular exam: PRESENT: RRR. ABSENT: diastolic murmur, rubs, systolic murmur Pulses: PRESENT: normal dorsalis pedis pul Vascular exam: PRESENT: normal capillary refill GI/Abdominal exam: PRESENT: normal bowel sounds, soft. ABSENT: distended, guarding, mass, organolmegaly, rebound, tenderness Rectal exam: PRESENT: deferred Extremities exam: PRESENT: full ROM. ABSENT: calf tenderness, clubbing, pedal edema Neurological exam: PRESENT: awake, CN II-XII grossly intact, aphasic Psychiatric exam: PRESENT: normal mood Skin exam: PRESENT: dry, intact, warm. ABSENT: cyanosis, rash Results Laboratory Results: 09/23/16 03:52 09/23/16 03:52 09/23/16 09/23/16 03:52 03:52 WBC 6.2 RBC 5.49 Hgb 14.7 Hct 44.4 MCV 81 MCH 26.8 L MCHC 33.2 RDW 15.8 H Plt Count 144 L Seg Neutrophils % 78.0 Lymphocytes % 13.7 Monocytes % 6.6 Eosinophils % 1.2 Basophils % 0.5 Absolute Neutrophils 4.8 Absolute Lymphocytes 0.8 Absolute Monocytes 0.4 Absolute Eosinophils 0.1 Absolute Basophils 0.0 Sodium 145.4 H Potassium 4.5 Chloride 115 H Carbon Dioxide 20 L Anion Gap 10 BUN 22 H Creatinine 0.91 Est GFR ( Amer) > 60 Est GFR (Non-Af Amer) > 60 Glucose 86 Calcium 9.6 Impressions: Chest X-Ray 09/20/16 19:24 IMPRESSION: NO SIGNIFICANT RADIOGRAPHIC FINDING IN THE CHEST. Head CT 09/23/16 03:29 IMPRESSION: Early subacute infarct in the right frontal perisylvian region, subcortical and deep white matter without superimposed acute hemorrhage change Assessment & Plan - Diagnosis (1) Acute focal neurological deficit Is this a current diagnosis for this admission?: YesPlan: Repeat CT of the head done today at 48 hours shows new right frontal infarct. Patient has several old left parietal and temporal infarcts. He is presently aphasic, and has failed bedside swallow as well as modified barium swallow. He presently is nothing by mouth (2) Aphasia Is this a current diagnosis for this admission?: YesPlan: Patient at times to make it through writing. Sometimes messages makes sense other times they don't. He does have a history of mild dementia, and schizophrenia. (3) Diabetes Qualifiers: Diabetes mellitus type: type 2 Diabetes mellitus complication status: with circulatory complication Diabetes mellitus group home insulin use: without group home use Is this a current diagnosis for this admission?: YesPlan: Continue to hold metformin due to patient being nothing by mouth. Continue sliding scale coverage. (4) Dysphagia due to recent cerebral infarction Is this a current diagnosis for this admission?: YesPlan: Continue speech therapy. Continue nothing by mouth. Consult GI for PEG tube placement. We'll hold Plavix until done. (5) Left-sided weakness Is this a current diagnosis for this admission?: YesPlan: patient has prior right sided weakness from old left CVA. Now left side is flaccid. We'll continue PT and OT. (6) CAD (coronary artery disease) Qualifiers: Coronary Disease-Associated Artery/Lesion type: [place] artery Associated angina: without angina Is this a current diagnosis for this admission?: YesPlan: Continue current medications with the exception of Plavix which we will hold until after PEG tube placement. (7) History of left below knee amputation Is this a current diagnosis for this admission?: Yes (8) HTN (hypertension) Qualifiers: Hypertension type: essential hypertension Qualified Code(s): I10 - Essential (primary) hypertension Is this a current diagnosis for this admission?: YesPlan: His only medications are on hold until PEG tube was placed. He has when necessary IV antihypertensives ordered. (9) Dyslipidemia Is this a current diagnosis for this admission?: YesPlan: We'll resume statin once feeding tube is place. - Time Time Spent with patient: 25-34 minutes Critical Time spent with patient: 15-24 minutes Medications reviewed and adjusted accordingly: Yes Anticipated discharge: Acute Rehab
[2016-09-23] MEDS: NORMAL SALINE 1000 ML 1,000 ML IV PRN (14:26)
[2016-09-23] MEDS ORDERED: NALOXONE HCL INJ/PF 0.4 MG/1 ML SDV ONE (17:40)
[2016-09-23] MEDS ORDERED: PROMETHAZINE HCL INJ 25 MG/1 ML VIAL ONE (17:41)
[2016-09-23] MEDS ORDERED: FENTANYL CITRATE INJ/PF 100 MCG/2 ML AMPUL ONE (17:41)
[2016-09-23] MEDS ORDERED: GLUCAGON,HUMAN RECOMB 1 MG INJ ONE (17:42)
[2016-09-23] MEDS ORDERED: EPINEPHRINE INJ 1 MG/10 ML DISP.SYRIN ONE (17:42)
[2016-09-23] MEDS ORDERED: FLUMAZENIL INJ 0.5 MG/5 ML VIAL IV ONE (17:42)
[2016-09-23] MEDS ORDERED: CEFTRIAXONE 1 GM/D5W RTU 1 GM/50 ML RTUPB IV ONE (18:00)
[2016-09-23] MEDS: MIDAZOLAM 2 MG/2 ML INJ ONE ×3 (18:22→18:41)
--- NOTE | 2016-09-23 18:55 | PDOC CONSULTATION ---
Consultation Consult Date: 09/22/16 History of Present Illness Admission Date/PCP: 09/21/16 03:25 History of Present Illness: This is a 75-year-old patient who was admitted three days ago with an acute stroke. He suddenly developed left facial droop, aphasia, and difficulty swallowing. He is not able to swallow his saliva. He failed a swallow study test performed this morning. Patient is alert and able to answer questions but cannot talk. He has left hemiparesis. An attempt was made to place NG tube but was unsuccessful. Patient refused any further attempts Past Medical History Cardiac Medical History: Reports: Coronary Artery Disease - stent x 1, Myocardial Infarction - 2003, Hypertension, Peripheral Vascular Disease Pulmonary Medical History: Reports: Asthma - as child Denies: Bronchitis, Chronic Obstructive Pulmonary Disease (COPD), Pneumonia, Tuberculosis Neurological Medical History: Reports: Ischemic CVA Denies: Seizures Endocrine Medical History: Reports: Diabetes Mellitus Type 2 GI Medical History: Denies: Hepatitis, Hiatal Hernia Musculoskeltal Medical History: Denies: Arthritis Psychiatric Medical History: Reports: Dementia Denies: Attention Deficit Hyperactivity Disorder, Bipolar Disorder, Depression, Personality Disorder, Schizoaffective Disorder Traumatic Medical History: Denies: Gunshot Wound, Pneumothorax, Traumatic Brain Injury Hematology: Denies: Anemia, Sickle Cell Disease Past Surgical History Past Surgical History: Reports: Internal Defibrillator, Orthopedic Surgery - left BKA, Vascular Surgery - left groin Social History Smoking Status: Never Smoker Frequency of Alcohol Use: None Hx Recreational Drug Use: No Drugs: None Hx Prescription Drug Abuse: No - Advance Directive Resuscitation Status: Full Code Family History Family History: Reviewed & Not Pertinent Parental Family History Reviewed: No Children Family History Reviewed: NA Sibling(s) Family History Reviewed.: NA Medication/Allergy Home Medications: Atorvastatin Calcium [Lipitor 10 mg Tablet] 10 mg PO DAILY 09/21/16 Carvedilol [Coreg 6.25 mg Tablet] 6.25 mg PO Q12 09/21/16 Clopidogrel Bisulfate [Plavix 75 mg Tablet] 75 mg PO DAILY 09/21/16 Ergocalciferol (Vitamin D2) [Vitamin D2] 50,000 unit PO [place]@1000 09/21/16 Folic Acid [Folvite 1 mg Tablet] 1 mg PO DAILY 09/21/16 Lisinopril [Prinivil 5 mg Tablet] 5 mg PO DAILY 09/21/16 Metformin HCl [Glucophage] 500 mg PO BIDACBS 09/21/16 Tamsulosin HCl [Flomax 0.4 mg Cap.sr] 0.4 mg PO DAILY 09/21/16 Travoprost [Travatan Z] 1 drop OD QHS 09/21/16 Allergies/Adverse Reactions: No Known Allergies Allergy (Verified 09/20/16 21:14) Review of Systems All systems: reviewed and no additional remarkable complaints except as stated Physical Exam Vital Signs: Temp Pulse Resp BP Pulse Ox 98.6 F 69 16 134/64 H 94 09/23/16 16:40 09/23/16 16:40 09/23/16 16:40 09/23/16 16:40 09/23/16 16:40 Intake & Output 09/22/16 09/23/16 09/24/16 06:59 06:59 06:59 Intake Total 384 1447 Output Total 1375 1300 300 Balance -991 147 -300 Weight 81 kg 82.3 kg Exam: General: Patient is alert. He has a left facial droop HEENT: There is no pallor or jaundice. Respiratory: No chest deformity. No respiratory distress. Chest wall palpitation was unremarkable. Breath sounds were normal Cardiovascular: Heart sounds 1 and 2 normal with no murmurs. Abdominal: Not distended. Soft and nontender. There is a scar in the left upper quadrant from previous multiple medical accident. Liver and spleen not palpable. No ascites demonstrated. Bowel sounds active. Rectal examination was deferred. Extremities: No edema Neurological: Alert and oriented. He is aphasic and has left hemiparesis Skin: No significant rash Psychological: Normal affect Results Laboratory Results: 09/23/16 03:52 09/23/16 03:52 09/23/16 09/23/16 03:52 03:52 WBC 6.2 RBC 5.49 Hgb 14.7 Hct 44.4 MCV 81 MCH 26.8 L MCHC 33.2 RDW 15.8 H Plt Count 144 L Seg Neutrophils % 78.0 Lymphocytes % 13.7 Monocytes % 6.6 Eosinophils % 1.2 Basophils % 0.5 Absolute Neutrophils 4.8 Absolute Lymphocytes 0.8 Absolute Monocytes 0.4 Absolute Eosinophils 0.1 Absolute Basophils 0.0 Sodium 145.4 H Potassium 4.5 Chloride 115 H Carbon Dioxide 20 L Anion Gap 10 BUN 22 H Creatinine 0.91 Est GFR ( Amer) > 60 Est GFR (Non-Af Amer) > 60 Glucose 86 Calcium 9.6 Impressions: Chest X-Ray 09/20/16 19:24 IMPRESSION: NO SIGNIFICANT RADIOGRAPHIC FINDING IN THE CHEST. Head CT 09/23/16 03:29 IMPRESSION: Early subacute infarct in the right frontal perisylvian region, subcortical and deep white matter without superimposed acute hemorrhage change Assessment & Plan - Diagnosis (1) Feeding difficulty in adult Is this a current diagnosis for this admission?: YesPlan: The need for a PEG tube was explained to the patient and his symptoms to understand and is in agreement. Hopefully he will regain his swallow function over time (2) Aphasia Is this a current diagnosis for this admission?: Yes (4) Dysphagia, oropharyngeal Is this a current diagnosis for this admission?: Yes
--- NOTE | 2016-09-23 18:57 | Operative Report ---
Operative Report DATE OF SURGERY: 09/23/16 Operative Report: Pre-op diagnosis: Acute stroke with oropharyngeal dysphagia Post-op diagnosis: Antral gastritis Surgery: Esophagogastroduodenoscopy with gastrostomy tube placement Medications: Versed 4 mg Fentanyl 100 mcg IV push Tissue removed: None Procedure: After informed consent obtained from patient, the throat was sprayed with Hurricane and conscious sedation was achieved. The upper endoscope was inserted into the esophagus under direct vision and advanced into the stomach. The duodenum was entered and examined to the second part. An appropriate site was then localized in the gastric body and over the abdominal wall. The site was cleaned with Betadine and draped. Xylocaine was then injected for local anesthesia. In the standard fashion a 20 [place] gastrostomy tube was then placed with no difficulty. The position of the inner bumper was confirmed at the second endoscopy. Patient tolerated procedure well. Findings Esophagus: Normal Z-line at: Antrum: Mild erythema Body: Scarring was noted probably from a previous PEG tube placement. Gastrostomy tube was placed in this area Fundus: Normal Duodenum first part: Normal Duodenum second part: Normal Plan: Resume feeding in the morning. OPERATION: .
[2016-09-24] MEDS: LATANOPROST 0.005% OPH SOLN 2.5 ML OD SCH ×2 (07:09→22:13)
[2016-09-24] MEDS ORDERED: 1/2 NORMAL SALINE 1,000 ML IV PRN (08:45)
[2016-09-24] MEDS: CEFTRIAXONE 1 GM/D5W RTU 50 ML IV SCH (10:50)
[2016-09-24] MEDS: LISINOPRIL 5 MG TABLET NG SCH (10:51)
[2016-09-24] MEDS: FOLIC ACID 1 MG TABLET NG SCH (10:51)
[2016-09-24] MEDS: ENOXAPARIN SODIUM INJ 40 MG/0.4 ML DISP.SYRIN SUBCUT SCH (10:52)
[2016-09-24] MEDS: ASPIRIN 81 MG TABLET, CHEWABLE NG SCH (10:52)
[2016-09-24] MEDS: ATORVASTATIN CALCIUM 10 MG TABLET NG SCH (10:52)
[2016-09-24] MEDS: CARVEDILOL 6.25 MG TABLET NG SCH ×2 (10:52→22:12)
--- NOTE | 2016-09-24 15:52 | PDOC PROGRESS REPORT ---
Subjective Progress Note for:: 09/24/16 Subjective:: Patient seen on morning rounds. He is presently resting in bed. He does awaken to verbal stimuli. He does follow commands with his left extremities. Right extremities remained flaccid. He remains aphasic and he does communicate at times by writing notes. He denies any pain, shortness of breath or dyspnea. He underwent PEG tube placement by Dr Davis last night Presently is no family at bedside. Physical Exam Vital Signs: Temp Pulse Resp BP Pulse Ox 98.1 F 87 16 152/73 H 93 09/24/16 11:35 09/24/16 11:35 09/24/16 11:35 09/24/16 11:35 09/24/16 11:35 Intake & Output 09/23/16 09/24/16 09/25/16 06:59 06:59 06:59 Intake Total 1447 1050 Output Total 1300 1725 Balance 147 -675 Weight 82.3 kg 92.1 kg General appearance: PRESENT: no acute distress, well-developed, well-nourished Head exam: PRESENT: atraumatic, normocephalic, other - left sided facial droop Eye exam: PRESENT: conjunctiva pink, EOMI, PERRLA. ABSENT: scleral icterus Mouth exam: PRESENT: moist, tongue midline Neck exam: ABSENT: carotid bruit, JVD, lymphadenopathy, thyromegaly Respiratory exam: PRESENT: clear to auscultation joaquin. ABSENT: rales, rhonchi, wheezes Cardiovascular exam: PRESENT: RRR. ABSENT: diastolic murmur, rubs, systolic murmur Pulses: PRESENT: normal dorsalis pedis pul Vascular exam: PRESENT: normal capillary refill GI/Abdominal exam: PRESENT: normal bowel sounds, soft, other - PEG tube patent. ABSENT: distended, guarding, mass, organolmegaly, rebound, tenderness Rectal exam: PRESENT: deferred Extremities exam: PRESENT: full ROM. ABSENT: calf tenderness, clubbing, pedal edema Neurological exam: PRESENT: alert, awake, motor sensory deficit - 0/5 left sided extremity strength,, aphasic - 0/5 left sided extremity strength, left sided facial droop Psychiatric exam: PRESENT: appropriate affect, normal mood. ABSENT: homicidal ideation, suicidal ideation Skin exam: PRESENT: dry, intact, warm. ABSENT: cyanosis, rash Results Laboratory Results: 09/23/16 03:52 09/23/16 03:52 Impressions: Head CT 09/23/16 03:29 IMPRESSION: Early subacute infarct in the right frontal perisylvian region, subcortical and deep white matter without superimposed acute hemorrhage change Chest X-Ray 09/24/16 00:00 IMPRESSION: No significant interval change. No acute findings. Other findings as noted above Assessment & Plan - Diagnosis (1) Acute focal neurological deficit Is this a current diagnosis for this admission?: YesPlan: Repeat CT of the head done today at 48 hours shows new right frontal infarct. Patient has several old left parietal and temporal infarcts. He is presently aphasic, and has failed bedside swallow as well as modified barium swallow. He underwent PEG tube placement last night will start tube feed placement (2) Aphasia Is this a current diagnosis for this admission?: YesPlan: Patient at times to make it through writing. Sometimes messages makes sense other times they don't. He does have a history of mild dementia, and schizophrenia. (3) Diabetes Qualifiers: Diabetes mellitus type: type 2 Diabetes mellitus complication status: with circulatory complication Diabetes mellitus intermediate insulin use: without intermediate use Is this a current diagnosis for this admission?: YesPlan: Continue to hold metformin due to patient being nothing by mouth. Continue sliding scale coverage. (4) Dysphagia due to recent cerebral infarction Is this a current diagnosis for this admission?: YesPlan: Continue speech therapy. Continue nothing by mouth. Consult GI for PEG tube placement. We'll hold Plavix until done. (5) Left-sided weakness Is this a current diagnosis for this admission?: YesPlan: patient has prior right sided weakness from old left CVA. Now left side is flaccid. We'll continue PT and OT. Will need long term care administrator rehab placement (6) CAD (coronary artery disease) Qualifiers: Coronary Disease-Associated Artery/Lesion type: [place] artery Associated angina: without angina Is this a current diagnosis for this admission?: YesPlan: Continue current medications with the exception of Plavix which we will hold until after PEG tube placement. (7) History of left below knee amputation Is this a current diagnosis for this admission?: Yes (8) HTN (hypertension) Qualifiers: Hypertension type: essential hypertension Qualified Code(s): I10 - Essential (primary) hypertension Is this a current diagnosis for this admission?: YesPlan: His only medications are on hold until PEG tube was placed. He has when necessary IV antihypertensives ordered. (9) Dyslipidemia Is this a current diagnosis for this admission?: YesPlan: We'll resume statin once feeding tube is place. - Time Time Spent with patient: 25-34 minutes - Inpatient Certification Based on my medical assessment, after consideration of the patient's comorbidities, presenting symptoms, or acuity I expect that the services needed warrant INPATIENT care.: Yes I certify that my determination is in accordance with my understanding of Medicare's requirements for reasonable and necessary INPATIENT services [42 CFR 412.3e].: Yes Medical Necessity: Risk of Complication if Not Cared For in Hospital
[2016-09-25 05:02] LABS: ABSOLUTE EOSINOPHILS # (AUTO) 0.1 10^3/uL (0.0-0.6); ABSOLUTE LYMPHOCYTES (AUTO) 0.8 10^3/uL (0.5-4.7); ABSOLUTE MONOCYTES (AUTO) 0.6 10^3/uL (0.1-1.4); ABSOLUTE NEUT (AUTO) 6.7 10^3/uL (1.7-8.2); BASOPHILS % (AUTO) 0.4 % (0-2); EOSINOPHILS % (AUTO) 0.7 % (0-6); HEMOGLOBIN 14.1 g/dL (13.5-17.0); HGB HCT DIFFERENCE -0.7; MEAN CORPUSCULAR HEMOGLOBIN 26.4 pg (27.0-33.4); MEAN CORPUSCULAR HGB CONC 32.7 g/dL (32.0-36.0); MEAN CORPUSCULAR VOLUME 81 fl (80-97); MONOCYTES % (AUTO) 6.9 % (3-13); RED BLOOD COUNT 5.32 10^6/uL (4.35-5.55); RED CELL DISTRIBUTION WIDTH 15.4 % (11.5-14.0); WHITE BLOOD COUNT 8.1 10^3/uL (4.0-10.5)
--- NOTE | 2016-09-25 08:17 | PDOC PROGRESS REPORT ---
Subjective Progress Note for:: 09/25/16 Subjective:: Patient seen on morning rounds. He is presently resting in bed. He does awaken to verbal stimuli. He does follow commands with his left extremities. Right extremities remained flaccid. He remains aphasic and he does communicate at times by writing notes. He denies any pain, shortness of breath or dyspnea. He denies any complaints at the present time. Presently is no family at bedside. Physical Exam Vital Signs: Temp Pulse Resp BP Pulse Ox 98.3 F 76 20 133/62 H 95 09/25/16 07:48 09/25/16 07:48 09/25/16 07:48 09/25/16 07:48 09/25/16 07:48 Intake & Output 09/24/16 09/25/16 09/26/16 06:59 06:59 06:59 Intake Total 1050 2200 Output Total 1725 1400 Balance -675 800 Weight 92.1 kg 95.1 kg General appearance: PRESENT: no acute distress, well-developed, well-nourished Head exam: PRESENT: atraumatic, normocephalic Eye exam: PRESENT: conjunctiva pink, EOMI, PERRLA. ABSENT: scleral icterus Ear exam: PRESENT: normal external ear exam Mouth exam: PRESENT: moist, tongue midline Neck exam: ABSENT: carotid bruit, JVD, lymphadenopathy, thyromegaly Respiratory exam: PRESENT: clear to auscultation joaquin. ABSENT: rales, rhonchi, wheezes Pulses: PRESENT: normal dorsalis pedis pul Rectal exam: PRESENT: deferred Gentrourinary exam: PRESENT: other - left bka Extremities exam: PRESENT: full ROM. ABSENT: calf tenderness, clubbing, pedal edema Musculoskeletal exam: PRESENT: other - left extremities 0/5 muscle strength Neurological exam: PRESENT: alert, awake, aphasic Psychiatric exam: PRESENT: appropriate affect Skin exam: PRESENT: dry, intact, warm. ABSENT: cyanosis, rash Results Laboratory Results: 09/25/16 04:19 09/25/16 09/25/16 04:19 04:19 WBC 8.1 RBC 5.32 Hgb 14.1 Hct 43.0 MCV 81 MCH 26.4 L MCHC 32.7 RDW 15.4 H Plt Count 134 L Seg Neutrophils % 82.0 H Lymphocytes % 10.0 L Monocytes % 6.9 Eosinophils % 0.7 Basophils % 0.4 Absolute Neutrophils 6.7 Absolute Lymphocytes 0.8 Absolute Monocytes 0.6 Absolute Eosinophils 0.1 Absolute Basophils 0.0 Magnesium 2.0 Impressions: Modified Barium Swallow 09/22/16 00:00 IMPRESSION: LARYNGEAL PENETRATION AND TRACHEAL ASPIRATION WITH THIN, PUREES, AND POST SWALLOW RESIDUALS. PLEASE SEE SPEECH PATHOLOGY REPORT FOR FURTHER DETAILS AND RECOMMENDATIONS. Head CT 09/23/16 03:29 IMPRESSION: Early subacute infarct in the right frontal perisylvian region, subcortical and deep white matter without superimposed acute hemorrhage change Chest X-Ray 09/24/16 00:00 IMPRESSION: No significant interval change. No acute findings. Other findings as noted above Assessment & Plan - Diagnosis (1) Acute focal neurological deficit Is this a current diagnosis for this admission?: Yes (2) Aphasia Is this a current diagnosis for this admission?: YesPlan: Communitates at times through writing. Sometimes messages makes sense other times they don't. He does have a history of mild dementia, and schizophrenia. (3) Diabetes Qualifiers: Diabetes mellitus type: type 2 Diabetes mellitus complication status: with circulatory complication Diabetes mellitus snf insulin use: without snf use Is this a current diagnosis for this admission?: YesPlan: Continue sliding scale coverage. Patient receiving Glucerna tube feedings through PEG (4) Dysphagia due to recent cerebral infarction Is this a current diagnosis for this admission?: YesPlan: Continue speech therapy. Continue nothing by mouth. Tube feedings and meds through PEG (5) Left-sided weakness Is this a current diagnosis for this admission?: YesPlan: patient has prior right sided weakness from old left CVA. Now left side is flaccid. We'll continue PT and OT. Will need snf rehab placement (6) CAD (coronary artery disease) Qualifiers: Coronary Disease-Associated Artery/Lesion type: [place] artery Associated angina: without angina Is this a current diagnosis for this admission?: YesPlan: Continue current medications with the exception of Plavix which we will hold until after PEG tube placement. (7) History of left below knee amputation Is this a current diagnosis for this admission?: Yes (8) HTN (hypertension) Qualifiers: Hypertension type: essential hypertension Qualified Code(s): I10 - Essential (primary) hypertension Is this a current diagnosis for this admission?: YesPlan: His only medications are on hold until PEG tube was placed. He has when necessary IV antihypertensives ordered. (9) Dyslipidemia Is this a current diagnosis for this admission?: YesPlan: We'll resume statin once feeding tube is place. (10) Acute cerebrovascular accident within last 8 weeks Is this a current diagnosis for this admission?: YesPlan: Continues to have left facial droop, flaccid left extremities and aphasia - Time Time Spent with patient: 25-34 minutes Critical Time spent with patient: 15-24 minutes Medications reviewed and adjusted accordingly: Yes Anticipated discharge: SNF Within: within 24 hours
[2016-09-25 08:32] LABS: ANION GAP 10 (5-19); BLOOD UREA NITROGEN 27 mg/dL (7-20); CARBON DIOXIDE 26 mmol/L (22-30); CHLORIDE 114 mmol/L (98-107); CREATININE RESULT 0.98 mg/dL (0.52-1.25); GLUCOSE 136 mg/dL (75-110); POTASSIUM 4.6 mmol/L (3.6-5.0); SODIUM 149.6 mmol/L (137-145)
--- NOTE | 2016-09-25 10:42 | PDOC DISCHARGE SUMMARY ---
General - Admit/Disc Date/PCP Admission Date/Primary Care Provider: 09/21/16 03:25 Discharge Date: 09/25/16 - Discharge Diagnosis (1) Acute focal neurological deficit Is this a current diagnosis for this admission?: YesSummary: Patient with acute right frontal embolic infarct (2) Aphasia Is this a current diagnosis for this admission?: YesSummary: Continue with speech therapy (3) Diabetes Is this a current diagnosis for this admission?: YesSummary: Continue current medications (4) Dysphagia due to recent cerebral infarction Is this a current diagnosis for this admission?: YesSummary: All meds and feedings through PEG tube (5) Left-sided weakness Is this a current diagnosis for this admission?: YesSummary: Continue with PT/OT (6) CAD (coronary artery disease) Is this a current diagnosis for this admission?: YesSummary: Continue current medications. Hx coronary stent. AICD (7) History of left below knee amputation Is this a current diagnosis for this admission?: Yes (8) HTN (hypertension) Is this a current diagnosis for this admission?: YesSummary: Continue current medications (9) Dyslipidemia Is this a current diagnosis for this admission?: YesSummary: Continue statin (10) Acute cerebrovascular accident within last 8 weeks Is this a current diagnosis for this admission?: Yes - Additional Information Resuscitation Status: Full Code Discharge Diet: Other (Comments) - Glucerna 1.2 m @ 75 cc/hr continously, 40 cc of water flushes q4h Discharge Activity: Activity As Tolerated Home Medications: Metformin HCl [Glucophage] 500 mg PO BIDACBS 09/21/16 Tamsulosin HCl [Flomax 0.4 mg Cap.sr] 0.4 mg PO DAILY 09/21/16 Travoprost [Travatan Z] 1 drop OD QHS 09/21/16 Acetaminophen [Tylenol 650 mg Supp] 650 mg IA Q4HP PRN supp.rect 09/25/16 Aspirin [Aspirin 81 mg Chewable Tablet] 81 mg NG DAILY tab.chew 09/25/16 Atorvastatin Calcium [Lipitor 10 mg Tablet] 10 mg NG DAILY tablet 09/25/16 Carvedilol [Coreg 6.25 mg Tablet] 6.25 mg NG Q12 tablet 09/25/16 Clopidogrel Bisulfate [Plavix 75 mg Tablet] 75 mg NG DAILY tablet 09/25/16 Folic Acid [Folvite 1 mg Tablet] 1 mg NG DAILY tablet 09/25/16 Latanoprost [Xalatan 0.005% Oph Soln 2.5 ml] 1 drop OD QHS bottle 09/25/16 Lisinopril [Prinivil 5 mg Tablet] 5 mg NG DAILY tablet 09/25/16 History of Present Illness History of Present Illness: SEUN TOTH is a 75 year old -Greek male with a history of prior strokes who presented to the emergency room for evaluation of sudden onset of left facial droop, aphasia, and difficulty swallowing his saliva at approximate 5 PM on the . Patient denied any fever chills. Was able to follow commands, but unable to express himself verbally. Was initially able to write on a tablet. Was offered TPA by the emergency room physician, but declined. Patient has been discussed with emergency room physician who evaluated the patient. Patient is completely aphasic and is able to provide no history whatsoever in terms of acute or chronic events, review of systems, personal habits, family history, etc. No friends or family are present. Old inpatient records are reviewed. When patient does write on a piece of paper currently, it typically is the same 3 or 4 letters over and over. Never forms an actual word. Patient does shake his head when asked if he is having any pain. Patient did pass along to the emergency room physician that he would be willing to be intubated if necessary. . No further information available this point in time. Hospital Course Hospital Course: Patient was admitted to [facility] on telemetry. Speech therapy, physical therapy and occupational therapy consult to assist. Initial CT did not show any new infarcts. CT obtained 48 hours after admission revealed a new right infarct. Patient continued to be flaccid on his left side with left facial droop. After several evaluations by speech therapy including modified barium swallow, patient was found to have aspiration tendencies in all liquids and food. Therefore discussed with patient and his niece Carrie need to place a PEG tube. They're both in agreement to the plan. Dr. Wellington was consulted. Patient underwent successful PEG tube placement. He began enteral feedings of Glucerna 1.2. He has reached maximal medical treatment at 75 mL per hour with 40 mL every 4 hours flushes. Discharge planning was consulted patient will need long- term rehabilitation. Patient has been accepted at [facility]. Physical Exam Vital Signs: Temp Pulse Resp BP Pulse Ox 98.3 F 76 20 133/62 H 95 09/25/16 07:48 09/25/16 07:48 09/25/16 07:48 09/25/16 07:48 09/25/16 07:48 Intake & Output 09/24/16 09/25/16 09/26/16 06:59 06:59 06:59 Intake Total 1050 2200 Output Total 1725 1400 Balance -675 800 Weight 92.1 kg 95.1 kg General appearance: PRESENT: no acute distress, well-developed, well-nourished Head exam: PRESENT: atraumatic, normocephalic Eye exam: PRESENT: conjunctiva pink, EOMI, PERRLA. ABSENT: scleral icterus Ear exam: PRESENT: normal external ear exam Mouth exam: PRESENT: moist, tongue midline Neck exam: ABSENT: carotid bruit, JVD, lymphadenopathy, thyromegaly Respiratory exam: PRESENT: clear to auscultation joaquin. ABSENT: rales, rhonchi, wheezes Cardiovascular exam: PRESENT: RRR. ABSENT: diastolic murmur, rubs, systolic murmur Pulses: PRESENT: normal dorsalis pedis pul Vascular exam: PRESENT: normal capillary refill GI/Abdominal exam: PRESENT: normal bowel sounds, soft. ABSENT: distended, guarding, mass, organolmegaly, rebound, tenderness Rectal exam: PRESENT: deferred Extremities exam: PRESENT: full ROM. ABSENT: calf tenderness, clubbing, pedal edema Musculoskeletal exam: PRESENT: ambulatory Neurological exam: PRESENT: alert, awake, CN II-XII grossly intact. ABSENT: motor sensory deficit Psychiatric exam: PRESENT: appropriate affect, normal mood. ABSENT: homicidal ideation, suicidal ideation Skin exam: PRESENT: dry, intact, warm. ABSENT: cyanosis, rash Results Laboratory Results: 09/25/16 04:19 09/25/16 04:19 09/25/16 09/25/16 09/25/16 04:19 04:19 04:19 WBC 8.1 RBC 5.32 Hgb 14.1 Hct 43.0 MCV 81 MCH 26.4 L MCHC 32.7 RDW 15.4 H Plt Count 134 L Seg Neutrophils % 82.0 H Lymphocytes % 10.0 L Monocytes % 6.9 Eosinophils % 0.7 Basophils % 0.4 Absolute Neutrophils 6.7 Absolute Lymphocytes 0.8 Absolute Monocytes 0.6 Absolute Eosinophils 0.1 Absolute Basophils 0.0 Sodium 149.6 H Potassium 4.6 Chloride 114 H Carbon Dioxide 26 Anion Gap 10 BUN 27 H Creatinine 0.98 Est GFR ( Amer) > 60 Est GFR (Non-Af Amer) > 60 Glucose 136 H Calcium 10.0 Magnesium 2.0 Impressions: Modified Barium Swallow 09/22/16 00:00 IMPRESSION: LARYNGEAL PENETRATION AND TRACHEAL ASPIRATION WITH THIN, PUREES, AND POST SWALLOW RESIDUALS. PLEASE SEE SPEECH PATHOLOGY REPORT FOR FURTHER DETAILS AND RECOMMENDATIONS. Head CT 09/23/16 03:29 IMPRESSION: Early subacute infarct in the right frontal perisylvian region, subcortical and deep white matter without superimposed acute hemorrhage change Chest X-Ray 09/24/16 00:00 IMPRESSION: No significant interval change. No acute findings. Other findings as noted above Qualifiers PATEINT BEING DISCHARGED WITH ANY OF THE FOLLOWING DIAGNOSIS?: Stroke VTE patient discharged on overlapping Therapy?: Yes Stroke Pt being discharged on Anti-thrombolytic therapy?: Yes Stroke Pt being discharged on Anti-coagulation therapy?: Yes Stroke Pt being discharged on Statins?: Yes Plan Discharge Plan: [facility] Time Spent: Less than 30 Minutes
[2016-09-25] MEDS: ATORVASTATIN CALCIUM 10 MG TABLET NG SCH (11:02)
[2016-09-25] MEDS: FOLIC ACID 1 MG TABLET NG SCH (11:03)
[2016-09-25] MEDS: ASPIRIN 81 MG TABLET, CHEWABLE NG SCH (11:03)
[2016-09-25] MEDS: CARVEDILOL 6.25 MG TABLET NG SCH (11:03)
[2016-09-25] MEDS: LISINOPRIL 5 MG TABLET NG SCH (11:03)
[2016-09-25] MEDS: CEFTRIAXONE 1 GM/D5W RTU 50 ML IV SCH (11:04)
[2016-09-25] MEDS: ENOXAPARIN SODIUM INJ 40 MG/0.4 ML DISP.SYRIN SUBCUT SCH (11:05)
[2016-09-25 18:39] VITALS: BP 121/51
--- NOTE | 2016-09-26 12:02 | PDOC TRANSFER SUMMARY ---
General - Admit/Disc Date/PCP Admission Date/Primary Care Provider: 09/21/16 03:25 Discharge Date: 09/25/16 - Discharge Diagnosis (1) Acute focal neurological deficit Is this a current diagnosis for this admission?: YesSummary: New right frontal cerebral infarct left-sided weakness, and aphasia. He will continue physical therapy occupational therapy and speech therapy program nursing center (2) Aphasia Is this a current diagnosis for this admission?: YesSummary: Kidney speech therapy patient will remain nothing by mouth medications and nutritional be given through PEG tube (3) Diabetes Is this a current diagnosis for this admission?: YesSummary: Continue current medications and sliding scale coverage (4) Dysphagia due to recent cerebral infarction Is this a current diagnosis for this admission?: YesSummary: Continue with nothing by mouth until cleared by speech and medications and nutrition through PEG (5) Left-sided weakness Is this a current diagnosis for this admission?: Yes (6) CAD (coronary artery disease) Is this a current diagnosis for this admission?: YesSummary: Continue current medications and Plavix he has a recent coronary stent. (7) History of left below knee amputation Is this a current diagnosis for this admission?: Yes (8) HTN (hypertension) Is this a current diagnosis for this admission?: YesSummary: Continue current medications she is normotensive (9) Dyslipidemia Is this a current diagnosis for this admission?: YesSummary: Continue statin (10) Acute cerebrovascular accident within last 8 weeks Is this a current diagnosis for this admission?: YesSummary: Continue PT, OT and speech. - Additional Information Resuscitation Status: Full Code Discharge Diet: Other (Comments) - Glucerna 1.2 m @ 75 cc/hr continously, 40 cc of water flushes q4h Discharge Activity: Activity As Tolerated Home Medications: Metformin HCl [Glucophage] 500 mg PO BIDACBS 09/21/16 Tamsulosin HCl [Flomax 0.4 mg Cap.sr] 0.4 mg PO DAILY 09/21/16 Travoprost [Travatan Z] 1 drop OD QHS 09/21/16 Acetaminophen [Tylenol 650 mg Supp] 650 mg OR Q4HP PRN supp.rect 09/25/16 Aspirin [Aspirin 81 mg Chewable Tablet] 81 mg NG DAILY tab.chew 09/25/16 Atorvastatin Calcium [Lipitor 10 mg Tablet] 10 mg NG DAILY tablet 09/25/16 Carvedilol [Coreg 6.25 mg Tablet] 6.25 mg NG Q12 tablet 09/25/16 Clopidogrel Bisulfate [Plavix 75 mg Tablet] 75 mg NG DAILY tablet 09/25/16 Folic Acid [Folvite 1 mg Tablet] 1 mg NG DAILY tablet 09/25/16 Latanoprost [Xalatan 0.005% Oph Soln 2.5 ml] 1 drop OD QHS bottle 09/25/16 Lisinopril [Prinivil 5 mg Tablet] 5 mg NG DAILY tablet 09/25/16 History of Present Illness Admission Date/PCP: 09/21/16 03:25 History of Present Illness: SEUN TOTH is a 75 year old -[place] male with a history of prior strokes who presented to the emergency room for evaluation of sudden onset of left facial droop, aphasia, and difficulty swallowing his saliva at approximate 5 PM on the . Patient denied any fever chills. Was able to follow commands, but unable to express himself verbally. Was initially able to write on a tablet. Was offered TPA by the emergency room physician, but declined. Patient has been discussed with emergency room physician who evaluated the patient. Patient is completely aphasic and is able to provide no history whatsoever in terms of acute or chronic events, review of systems, personal habits, family history, etc. No friends or family are present. Old inpatient records are reviewed. When patient does write on a piece of paper currently, it typically is the same 3 or 4 letters over and over. Never forms an actual word. Patient does shake his head when asked if he is having any pain. Patient did pass along to the emergency room physician that he would be willing to be intubated if necessary. . No further information available this point in time. Hospital Course Hospital Course: Patient was admitted to [facility] on telemetry. Speech therapy, physical therapy and occupational therapy consult to assist. Initial CT did not show any new infarcts. CT obtained 48 hours after admission revealed a new right infarct. Patient continued to be flaccid on his left side with left facial droop. After several evaluations by speech therapy including modified barium swallow, patient was found to have aspiration tendencies in all liquids and food. Therefore discussed with patient and his niece Carrie need to place a PEG tube. They're both in agreement to the plan. Dr. Wellington was consulted. Patient underwent successful PEG tube placement. He began enteral feedings of Glucerna 1.2. He has reached maximal medical treatment at 75 mL per hour with 40 mL every 4 hours flushes. Discharge planning was consulted patient will need long- term rehabilitation. Patient has been accepted at [facility]. Physical Exam Vital Signs: Temp Pulse Resp BP Pulse Ox 98.0 F 59 L 16 121/51 L 97 09/25/16 15:29 09/25/16 15:29 09/25/16 15:29 09/25/16 15:29 09/25/16 15:29 Intake & Output 09/25/16 09/26/16 09/27/16 06:59 06:59 06:59 Intake Total 2200 50 Output Total 1400 550 Balance 800 -500 Weight 95.1 kg General appearance: PRESENT: no acute distress, well-developed, well-nourished, other - left sided facial droop Head exam: PRESENT: atraumatic, normocephalic Eye exam: PRESENT: conjunctiva pink, EOMI, PERRLA. ABSENT: scleral icterus Ear exam: PRESENT: normal external ear exam Mouth exam: PRESENT: moist, tongue midline Neck exam: ABSENT: carotid bruit, JVD, lymphadenopathy, thyromegaly Respiratory exam: PRESENT: clear to auscultation joaquin. ABSENT: rales, rhonchi, wheezes Cardiovascular exam: PRESENT: RRR. ABSENT: diastolic murmur, rubs, systolic murmur Pulses: PRESENT: normal carotid pulses, normal radial pulses Vascular exam: PRESENT: normal capillary refill GI/Abdominal exam: PRESENT: normal bowel sounds, soft. ABSENT: distended, guarding, mass, organolmegaly, rebound, tenderness Rectal exam: PRESENT: deferred Extremities exam: PRESENT: other - left bka, left extremities flaccid Musculoskeletal exam: PRESENT: other - left side extremities 0/5 muscle strength Neurological exam: PRESENT: alert, awake, aphasic Psychiatric exam: PRESENT: flat affect Skin exam: PRESENT: dry, intact, warm. ABSENT: cyanosis, rash Results Laboratory Results: 09/25/16 04:19 09/25/16 04:19 Impressions: Modified Barium Swallow 09/22/16 00:00 IMPRESSION: LARYNGEAL PENETRATION AND TRACHEAL ASPIRATION WITH THIN, PUREES, AND POST SWALLOW RESIDUALS. PLEASE SEE SPEECH PATHOLOGY REPORT FOR FURTHER DETAILS AND RECOMMENDATIONS. Head CT 09/23/16 03:29 IMPRESSION: Early subacute infarct in the right frontal perisylvian region, subcortical and deep white matter without superimposed acute hemorrhage change Chest X-Ray 09/24/16 00:00 IMPRESSION: No significant interval change. No acute findings. Other findings as noted above Transfer Plan - Disposition Transfer Plan: [facility] BEING DISCHARGED WITH ANY OF THE FOLLOWING DIAGNOSIS?: Stroke VTE patient discharged on overlapping Therapy?: Yes Stroke Pt being discharged on Anti-thrombolytic therapy?: Yes Stroke Pt being discharged on Anti-coagulation therapy?: Yes Stroke Pt being discharged on Statins?: Yes Plan Time Spent: Less than 30 Minutes
== END 2016-09-25 18:54 | DRG 92 ==
LOC: ER 19:22 → EH 22:08 → UNDOADMIN 22:08 → EH 09-21 03:25 → 3N 09-22 01:27
PROVIDERS: ADMIT Family Medicine; ATTEND Family Medicine
PROC: 0DH63UZ Insertion of Feeding Device into Stomach, Percutaneous Approach (ICD-10-PCS; principal; 2016-09-23 18:00)
DX: R29.818 Other symptoms and signs involving the nervous system (principal); G81.04 Flaccid hemiplegia affecting left nondominant side; R47.01 Aphasia; R13.12 Dysphagia, oropharyngeal phase; R29.810 Facial weakness; K29.60 Other gastritis without bleeding; I25.10 Atherosclerotic heart disease of native coronary artery without angina pectoris; I10 Essential (primary) hypertension; I73.9 Peripheral vascular disease, unspecified; E11.9 Type 2 diabetes mellitus without complications; F03.90 Unspecified dementia, unspecified severity, without behavioral disturbance, psychotic disturbance, mood disturbance, and anxiety; N40.0 Benign prostatic hyperplasia without lower urinary tract symptoms; I25.2 Old myocardial infarction; Z95.810 Presence of automatic (implantable) cardiac defibrillator; Z89.512 Acquired absence of left leg below knee; Z79.84 Long term (current) use of oral hypoglycemic drugs; Z79.82 Long term (current) use of aspirin; Z79.899 Other long term (current) drug therapy
CPT/HCPCS: 36415; 43246; 70450; 71010; 74230; 80048; 80053; 80061; 81001; 82550; 82553; 82962; 83036; 83735; 84484; 85025; 85610; 85730; 93005; 93010; 93306; 99285; G8978-GP; G8979-GP; G8987-GO; G8988-GO; G8996-GN; G8997-GN; G8998-GN; G9162-GN; G9163-GN; J0171; J0696; J1610; J1650; J2250; J2310; J2550; J3010; J3490; J7030

== ENCOUNTER 2016-10-09 11:09 | Emergency (ER) | payer MEDICARE, MEDICAID ==
[2016-10-09] MEDS ORDERED: NORMAL SALINE 500 ML IV ONE (11:42)
[2016-10-09] MEDS ORDERED: ONDANSETRON HCL INJ/PF 4 MG/2 ML SDV IV ONE (11:42)
[2016-10-09 12:34] LABS: HEMATOCRIT 50.3 % (37.9-51.0); HEMOGLOBIN 16.5 g/dL (13.5-17.0); HGB HCT DIFFERENCE -0.8; MEAN CORPUSCULAR HEMOGLOBIN 26.5 pg (27.0-33.4); MEAN CORPUSCULAR HGB CONC 32.7 g/dL (32.0-36.0); MEAN CORPUSCULAR VOLUME 81 fl (80-97); RED CELL DISTRIBUTION WIDTH 16.4 % (11.5-14.0); WHITE BLOOD COUNT 22.8 10^3/uL (4.0-10.5)
--- NOTE | 2016-10-09 12:36 | ER Document Report ---
ED General - General Chief Complaint: Abdominal Distention Stated Complaint: VOMITING Mode of Arrival: Ambulatory Information source: Patient Notes: 75-year-old male history of CVA presents from care facility with concerns of one episode of vomiting. Patient himself denies any such complaints. Denies any abdominal pain or any other concerns. Patient does have a G-tube. TRAVEL OUTSIDE OF THE [place] IN LAST 30 DAYS: No - HPI Onset: Just prior to arrival Onset/Duration: Sudden Quality of pain: No pain Severity: Mild Pain Level: Denies Associated symptoms: Nausea, Vomiting Exacerbated by: Denies Relieved by: Denies Similar symptoms previously: No Recently seen / treated by doctor: Yes - Related Data Allergies/Adverse Reactions: No Known Allergies Allergy (Verified 09/20/16 21:14) Home Medications: Current Home Medications Acetaminophen [Tylenol 650 mg Supp] 650 mg UT Q4HP PRN 10/09/16 [History] Aspirin [Aspirin 81 mg Chewable Tablet] 81 mg PEG DAILY 10/09/16 [History] Atorvastatin Calcium [Lipitor 10 mg Tablet] 10 mg PEG QHS 10/09/16 [History] Carvedilol [Coreg 6.25 mg Tablet] 6.25 mg PEG Q12 10/09/16 [History] Clopidogrel Bisulfate [Plavix 75 mg Tablet] 75 mg PEG DAILY 10/09/16 [History] Folic Acid [Folvite 1 mg Tablet] 1 mg PEG DAILY 10/09/16 [History] Latanoprost [Xalatan 0.005% Oph Soln 2.5 ml] 1 drop OD QHS 10/09/16 [History] Lisinopril 5 mg PEG DAILY 10/09/16 [History] Metformin HCl 500 mg PEG BID 10/09/16 [History] Tamsulosin HCl [Flomax 0.4 mg Cap.sr] 0.4 mg PEG DAILY 10/09/16 [History] Travoprost (Benzalkonium) [Travatan 0.004% Eye Drop] 1 drop OD QHS 10/09/16 [ History] Past Medical History - Social History Smoking Status: Never Smoker Cigarette use (# per day): No Chew tobacco use (# tins/day): No Smoking Education Provided: No Family History: Reviewed & Not Pertinent - Past Medical History Cardiac Medical History: Reports: Hx Coronary Artery Disease - stent x 1, Hx Heart Attack - 2004, Hx Hypertension, Hx Peripheral Vascular Disease Pulmonary Medical History: Reports: Hx Asthma - as child Denies: Hx Bronchitis, Hx COPD, Hx Pneumonia, Hx Tuberculosis Neurological Medical History: Denies: Hx Cerebrovascular Accident, Hx Seizures Endocrine Medical History: Reports: Hx Diabetes Mellitus Type 2 Renal/ Medical History: Reports: Hx Benign Prostatic Hyperplasia GI Medical History: Denies: Hx Hepatitis, Hx Hiatal Hernia, Hx Ulcer Musculoskeltal Medical History: Denies Hx Arthritis Psychiatric Medical History: Reports: Hx Dementia Denies: Hx Anxiety, Hx Attention Deficit Hyperactivity Disorder, Hx Bipolar Disorder, Hx Borderline Personality Disorder, Hx Depression, Hx Obsessive Compulsive Disorder, Hx Personality Disorder, Hx Schizoaffective Disorder, Hx Schizophrenia Traumatic Medical History: Denies: Hx Fractures, Hx Gunshot Wound, Hx Liver Laceration, Hx Pneumothorax, Hx Spine Fracture, Hx Spleen Laceration/Rupture, Hx Traumatic Brain Injury Infectious Medical History: Denies: Hx Hepatitis Past Surgical History: Reports: Hx Abdominal Surgery, Hx Cardiac Surgery - defibrillator, Hx Internal Defibrillator, Hx Orthopedic Surgery - left BKA, Hx Vascular Surgery - left groin. Denies: Hx Open Heart Surgery - Immunizations Hx Diphtheria, Pertussis, Tetanus Vaccination: No Review of Systems - Review of Systems Notes: REVIEW OF SYSTEMS: CONSTITUTIONAL : Denies fever, chills, or sweats. Denies recent illness. EENT: Denies eye, ear, throat, or mouth pain or symptoms. Denies nasal or sinus congestion or discharge. Denies throat, tongue, or mouth swelling or difficulty swallowing. CARDIOVASCULAR: Denies chest pain. Denies palpitations or racing or irregular heart beat. Denies ankle edema. RESPIRATORY: Denies cough, cold, or chest congestion. Denies shortness of breath, difficulty breathing, or wheezing. GASTROINTESTINAL: Denies abdominal pain or distention. Denies nausea, vomiting , or diarrhea. Denies blood in vomitus, stools, or per rectum. Denies black, tarry stools. Denies constipation. GENITOURINARY: Denies difficulty urinating, painful urination, burning, frequency, blood in urine, or discharge. MUSCULOSKELETAL: Denies back or neck pain or stiffness. Denies joint pain or swelling. SKIN: Denies rash, lesions or sores. HEMATOLOGIC : Denies easy bruising or bleeding. LYMPHATIC: Denies swollen, enlarged glands. NEUROLOGICAL: Denies confusion or altered mental status. Denies passing out or loss of consciousness. Denies dizziness or lightheadedness. Denies headache. Denies weakness or paralysis or loss of use of either side. Denies problems with gait or speech. Denies sensory loss, numbness, or tingling. Denies seizures. PSYCHIATRIC: Denies anxiety or stress. Denies depression, suicidal ideation, or homicidal ideation. ALL OTHER SYSTEMS REVIEWED AND NEGATIVE. Dictation was performed using [employer] voice recognition software PHYSICAL EXAMINATION: GENERAL: Well-appearing, well-nourished and in no acute distress. HEAD: Facial droop chronic EYES: Pupils equal round and reactive to light, extraocular movements intact, sclera anicteric, conjunctiva are normal. ENT: Nares patent, oropharynx clear without exudates. Moist mucous membranes. NECK: Normal range of motion, supple without lymphadenopathy LUNGS: Breath sounds clear to auscultation bilaterally and equal. No wheezes rales or rhonchi. HEART: Regular rate and rhythm without murmurs ABDOMEN: Firm distended abdomen G-tube in place Musculoskeletal: Left BKA, moving right extremity NEUROLOGICAL: Baseline neurological deficits PSYCH: Normal mood, normal affect. SKIN: Warm, Dry, normal turgor, no rashes or lesions noted. Physical Exam - Vital signs Vitals: Temp Pulse Resp BP Pulse Ox 98.7 F 106 H 18 151/75 H 92 10/09/16 11:23 10/09/16 11:23 10/09/16 11:23 10/09/16 11:23 10/09/16 11:23 Course - Re-evaluation Re-evalutation: 10/09/16 12:36 Given the patient denies an episode of vomiting, his abdomen is firm concerning for constipation versus a bowel obstruction CT has been ordered 10/09/16 16:13 Extremely large bladder noted, Dr Gordon consulted , he has never placed one, 3 attempts at catheter failed 10/09/16 16:30 Solomon paged, no beds available dr Jeane Ashton paged 4 attempts 10/09/16 17:12 [address] was placed all the way in no urine output 10/09/16 17:30 Dr loki ashton accepts transfer - Vital Signs Vital signs: Temp Pulse Resp BP Pulse Ox 98.2 F 106 H 22 H 179/96 H 96 10/09/16 17:25 10/09/16 11:23 10/09/16 17:00 10/09/16 14:00 10/09/16 13:01 - Laboratory Result Diagrams: 10/09/16 12:08 10/09/16 12:08 Laboratory results interpreted by me: 10/09/16 10/09/16 10/09/16 11:36 12:08 12:08 WBC 22.8 H RBC 6.20 H MCH 26.5 L RDW 16.4 H Plt Count 135 L Seg Neuts % (Manual) 89 H Band Neutrophils % 2 L Lymphocytes % (Manual) 6 L Monocytes % (Manual) 2 L Abs Neuts (Manual) 20.7 H Sodium 150.2 H Potassium 5.1 H Carbon Dioxide 33 H BUN 120 H Creatinine 2.17 H Est GFR ( Amer) 36 L Est GFR (Non-Af Amer) 30 L Glucose 439 H* POC Glucose 365 H Calcium 10.7 H Critical Care Note - Critical Care Note Total time excluding time spent on procedures (mins): 45 Comments: minutes of critical care time spent in direct contact evaluating and reevaluating the patient, treating symptoms, reviewing labs and studies and speaking with family and consultants excluding any procedures Discharge - Discharge Clinical Impression: Hyperglycemia, Urinary retention, Hydroureter Condition: Serious Disposition: [facility]
[2016-10-09 12:56] LABS: ALANINE AMINOTRANSFERASE 37 U/L (21-72); ALBUMIN 3.8 g/dL (3.5-5.0); ALKALINE PHOSPHATASE 111 U/L (38-126); ANION GAP 15 (5-19); ASPARTATE AMINO TRANSFERASE 32 U/L (17-59); BILIRUBIN,DIRECT 0.4 mg/dL (0.0-0.4); BILIRUBIN,TOTAL 0.7 mg/dL (0.2-1.3); BLOOD UREA NITROGEN 120 mg/dL (7-20); CALCIUM 10.7 mg/dL (8.4-10.2); CARBON DIOXIDE 33 mmol/L (22-30); CHLORIDE 102 mmol/L (98-107); CREATININE RESULT 2.17 mg/dL (0.52-1.25); LIPASE 112.2 U/L (23-300); POTASSIUM 5.1 mmol/L (3.6-5.0); SODIUM 150.2 mmol/L (137-145); TOTAL PROTEIN 7.9 g/dL (6.3-8.2)
[2016-10-09 13:00] LABS: ANISOCYTOSIS 1+; BAND NEUTROPHILS % (MANUAL) 2 % (3-5); BASOPHILS % (MANUAL) 1 % (0-2); EOSINOPHILS % (MANUAL) 0 % (0-6); LYMPHOCYTES % (MANUAL) 6 % (13-45); TOTAL CELLS COUNTED 100
[2016-10-09 13:11] LABS: GLUCOSE 439 mg/dL (75-110)
[2016-10-09] MEDS ORDERED: LEVOFLOXACIN 750 MG/D5W RTU 150 ML IV ONE (15:40)
[2016-10-09] MEDS ORDERED: LIDOCAINE 2% URO-JET 5 ML KIT MM ONE (16:19)
[2016-10-09] MEDS ORDERED: INSULIN REG, HUMAN 100 UNIT/ML 3 ML VIAL (PYX) SUBCUT ONE (17:53)
[2016-10-09 19:06] VITALS: BP 163/81
== END 2016-10-09 19:35 | disposition short-term general hospital (02) ==
LOC: ER 11:09
DX: R73.9 Hyperglycemia, unspecified (principal); R33.9 Retention of urine, unspecified; N13.4 Hydroureter; R14.0 Abdominal distension (gaseous); R11.10 Vomiting, unspecified; Z79.899 Other long term (current) drug therapy
CPT/HCPCS: 99291; 96361; 51702; 96375; 96365; 36415; 87040; 82962; 83690; 85025; 80053; 71010; 74176; A9270; J2405; J7040; J1956; J1815

== ENCOUNTER 2016-10-23 00:09 | Emergency (ER) | payer MEDICARE, MEDICAID ==
[2016-10-23] MEDS ORDERED: LIDOCAINE 2% URO-JET 5 ML KIT MM ONE (00:32)
--- NOTE | 2016-10-23 00:34 | ER Document Report ---
ED General - General Chief Complaint: Problem with Urinary Catheter Stated Complaint: CATHETER ISSUE Cannot obtain history due to: Dementia Notes: Patient is a 75-year-old male who presents from [facility] with concerns for bleeding around his chronic indwelling urinary catheter. Patient is minimally verbal and unable to communicate why he is in the emergency department today. There is no provided documentation from snf. Patient denies any abdominal pain. Urine is noted in the urinary catheter bag. TRAVEL OUTSIDE OF THE [place] IN LAST 30 DAYS: No - Related Data Allergies/Adverse Reactions: No Known Allergies Allergy (Verified 09/20/16 21:14) Past Medical History - General Information source: Patient Cannot obtain history due to: Dementia - Social History Smoking Status: Unknown if Ever Smoked Frequency of alcohol use: None Drug Abuse: None Lives with: [facility] Family History: Reviewed & Not Pertinent - Past Medical History Cardiac Medical History: Reports: Hx Coronary Artery Disease - stent x 1, Hx Heart Attack - 2003, Hx Hypertension, Hx Peripheral Vascular Disease Pulmonary Medical History: Reports: Hx Asthma - as child Denies: Hx Bronchitis, Hx COPD, Hx Pneumonia, Hx Tuberculosis Neurological Medical History: Denies: Hx Cerebrovascular Accident, Hx Seizures Endocrine Medical History: Reports: Hx Diabetes Mellitus Type 2 Renal/ Medical History: Reports: Hx Benign Prostatic Hyperplasia GI Medical History: Denies: Hx Hepatitis, Hx Hiatal Hernia, Hx Ulcer Musculoskeltal Medical History: Denies Hx Arthritis Psychiatric Medical History: Reports: Hx Dementia Denies: Hx Anxiety, Hx Attention Deficit Hyperactivity Disorder, Hx Bipolar Disorder, Hx Borderline Personality Disorder, Hx Depression, Hx Obsessive Compulsive Disorder, Hx Personality Disorder, Hx Schizoaffective Disorder, Hx Schizophrenia Traumatic Medical History: Denies: Hx Fractures, Hx Gunshot Wound, Hx Liver Laceration, Hx Pneumothorax, Hx Spine Fracture, Hx Spleen Laceration/Rupture, Hx Traumatic Brain Injury Infectious Medical History: Denies: Hx Hepatitis Past Surgical History: Reports: Hx Abdominal Surgery, Hx Cardiac Surgery - defibrillator, Hx Internal Defibrillator, Hx Orthopedic Surgery - left BKA, Hx Vascular Surgery - left groin. Denies: Hx Open Heart Surgery - Immunizations Hx Diphtheria, Pertussis, Tetanus Vaccination: No Review of Systems - Review of Systems -: Yes ROS unobtainable due to patient's medical condition Physical Exam - Vital signs Vitals: Temp Pulse Resp BP Pulse Ox 98.4 F 60 16 102/45 L 96 10/23/16 00:14 10/23/16 00:14 10/23/16 00:14 10/23/16 00:14 10/23/16 00:14 Interpretation: Normal Notes: PHYSICAL EXAMINATION: GENERAL: Frail, elderly man in no distress HEAD: Atraumatic, normocephalic. EYES: Sclera anicteric, conjunctiva are normal. ENT: nares patent, oropharynx clear without exudates. Moderately dry mucous membranes. NECK: supple without lymphadenopathy LUNGS: Breath sounds clear to auscultation bilaterally and equal. No wheezes rales or rhonchi. HEART: Regular rate and rhythm without murmurs ABDOMEN: Soft, nontender, normoactive bowel sounds. No guarding, no rebound. No masses appreciated. : There is erosion of the ventral portion of the penile shaft with a chronic indwelling catheter with a small amount of bleeding. EXTREMITIES: no pitting or edema. No cyanosis. PSYCH: Minimal verbal content. Does not his head yes or no to questions. SKIN: Warm, Dry, normal turgor, no rashes or lesions noted. Course - Re-evaluation Re-evalutation: 10/23/16 00:32 Patient presents with a mild amount of bleeding around his Catalan catheter site. Patient is minimally verbal but does communicate adequately. He admits that this is been ongoing for months and is not new or different today but he was having discomfort so they sent him to the emergency department. There is urine draining into the bag. A Urojet has been applied to surround the area for discomfort. No indication for further labs or imaging.At this time will discharge with return precautions and follow-up recommendations. Verbal discharge instructions given a the bedside and opportunity for questions given. Medication warnings reviewed. Patient is in agreement with this plan and has verbalized understanding of return precautions and the need for primary care follow-up in the next 24-72 hours. - Vital Signs Vital signs: Temp Pulse Resp BP Pulse Ox 98.4 F 60 16 102/45 L 96 10/23/16 00:14 10/23/16 00:14 10/23/16 00:14 10/23/16 00:14 10/23/16 00:14 Discharge - Discharge Clinical Impression: Catalan catheter problem Qualifiers: Encounter type: initial encounter Qualified Code(s): T83.9XXA - Unspecified complication of genitourinary prosthetic device, implant and graft, initial encounter Condition: Good Disposition: HOME, SELF-CARE Additional Instructions: Please clean and dress the area with lidocaine as needed for discomfort.
[2016-10-23 07:41] VITALS: BP 118/67
== END 2016-10-23 03:40 | disposition home or self-care (01) ==
LOC: ER 00:09
DX: T83.83XA Hemorrhage due to genitourinary prosthetic devices, implants and grafts, initial encounter (principal)
CPT/HCPCS: 99284; A9270; J3490

== ENCOUNTER 2016-10-24 02:17 | Emergency (ER) | payer MEDICARE, MEDICAID ==
--- NOTE | 2016-10-24 02:25 | ER Document Report ---
ED General - General Stated Complaint: WELL CHECK Cannot obtain history due to: Dementia Notes: [facility] with concerns of bleeding around his urethral catheter site. Patient denies any complaints. There is minimal bleeding around the site. No history can otherwise be obtained as patient is nonverbal TRAVEL OUTSIDE OF THE [place] IN LAST 30 DAYS: No - Related Data Allergies/Adverse Reactions: No Known Allergies Allergy (Verified 09/20/16 21:14) Past Medical History - General Information source: Patient Cannot obtain history due to: Dementia - Social History Smoking Status: Unknown if Ever Smoked Frequency of alcohol use: None Drug Abuse: None Lives with: [facility] Family History: Reviewed & Not Pertinent - Past Medical History Cardiac Medical History: Reports: Hx Coronary Artery Disease - stent x 1, Hx Heart Attack - 2003, Hx Hypertension, Hx Peripheral Vascular Disease Pulmonary Medical History: Reports: Hx Asthma - as child Denies: Hx Bronchitis, Hx COPD, Hx Pneumonia, Hx Tuberculosis Neurological Medical History: Denies: Hx Cerebrovascular Accident, Hx Seizures Endocrine Medical History: Reports: Hx Diabetes Mellitus Type 2 Renal/ Medical History: Reports: Hx Benign Prostatic Hyperplasia. Denies: Hx Peritoneal Dialysis GI Medical History: Denies: Hx Hepatitis, Hx Hiatal Hernia, Hx Ulcer Musculoskeltal Medical History: Denies Hx Arthritis Psychiatric Medical History: Reports: Hx Dementia Denies: Hx Anxiety, Hx Attention Deficit Hyperactivity Disorder, Hx Bipolar Disorder, Hx Borderline Personality Disorder, Hx Depression, Hx Obsessive Compulsive Disorder, Hx Personality Disorder, Hx Schizoaffective Disorder, Hx Schizophrenia Traumatic Medical History: Denies: Hx Fractures, Hx Gunshot Wound, Hx Liver Laceration, Hx Pneumothorax, Hx Spine Fracture, Hx Spleen Laceration/Rupture, Hx Traumatic Brain Injury Infectious Medical History: Denies: Hx Hepatitis Past Surgical History: Reports: Hx Abdominal Surgery, Hx Cardiac Surgery - defibrillator, Hx Internal Defibrillator, Hx Orthopedic Surgery - left BKA, Hx Vascular Surgery - left groin. Denies: Hx Open Heart Surgery - Immunizations Hx Diphtheria, Pertussis, Tetanus Vaccination: No Review of Systems - Review of Systems -: Yes ROS unobtainable due to patient's medical condition Physical Exam - Vital signs Vitals: Temp Pulse Resp BP Pulse Ox 97.9 F 62 14 109/52 L 98 10/24/16 02:26 10/24/16 02:26 10/24/16 02:26 10/24/16 02:26 10/24/16 02:26 Interpretation: Normal Notes: PHYSICAL EXAMINATION: GENERAL: Frail, elderly male. HEAD: Atraumatic, normocephalic. EYES: sclera anicteric, conjunctiva are normal. ENT: Moist mucous membranes. LUNGS: Normal work of breathing HEART: 2+ radial pulses bilaterally : Indwelling Catalan catheter is in place with erosion of the ventral surface of the penis with small amount of bleeding around the site. EXTREMITIES: no pitting or edema. No cyanosis. PSYCH: Nodes his head yes or no to questions but does not speak. SKIN: Warm, Dry, normal turgor, no rashes or lesions noted. Course - Re-evaluation Re-evalutation: 10/24/16 02:24 Patient again returns for concerns of bleeding around the urethral catheter site. Of note, the patient's name badge from his visit yesterday has not been cut off his wrist. Even though there was instructions to keep the area dressed no dressing is in place. They were also instructed that the patient would require placement of a suprapubic catheter and removal of this urethral catheter as it has completely eroded through the ventral shaft of the penis from being in place for so long. Patient does have small amount of bleeding coming from around the catheter site with associated hematuria. He has no abdominal tenderness or flank tenderness. Patient is nonverbal but does nod his head to questioning and denies any abdominal or flank tenderness tonight. I remain concerned about the patient is not receiving appropriate care at his nursing facility and have referred this case to adult protective services. - Vital Signs Vital signs: Temp Pulse Resp BP Pulse Ox 97.9 F 62 14 109/52 L 98 10/24/16 02:26 10/24/16 02:26 10/24/16 02:26 10/24/16 02:26 10/24/16 02:26 Discharge - Discharge Clinical Impression: Urethral erosion by catheter Qualifiers: Encounter type: initial encounter Qualified Code(s): T83.89XA - Other specified complication of genitourinary prosthetic devices, implants and grafts , initial encounter Condition: Good Disposition: HOME, SELF-CARE Additional Instructions: As we stated yesterday, this patient should not have a chronic indwelling Catalan catheter as he has had erosion of the ventral shaft of his penis due to this chronic indwelling catheter. It is your responsibility to ensure that this patient has appropriate care. A suprapubic catheter should have been placed sometime ago and needs to be done if he requires continuous catheterization. Keep a sterile dressing on the area. Consult with your physician for urology input on placement of a suprapubic catheter.
[2016-10-24 02:27] VITALS: BP 109/52
== END 2016-10-24 02:30 | disposition home or self-care (01) ==
LOC: ER 02:17
DX: T83.89XA Other specified complication of genitourinary prosthetic devices, implants and grafts, initial encounter (principal); I25.10 Atherosclerotic heart disease of native coronary artery without angina pectoris; I10 Essential (primary) hypertension; E11.9 Type 2 diabetes mellitus without complications; F03.90 Unspecified dementia, unspecified severity, without behavioral disturbance, psychotic disturbance, mood disturbance, and anxiety; I25.2 Old myocardial infarction; Z95.810 Presence of automatic (implantable) cardiac defibrillator; Z89.512 Acquired absence of left leg below knee
CPT/HCPCS: 99284

== ENCOUNTER 2016-12-03 06:30 | Emergency (ER) | payer MEDICARE, MEDICAID ==
[2016-12-03] MEDS ORDERED: LIDOCAINE 2% URO-JET 5 ML KIT MM ONE (06:44)
--- NOTE | 2016-12-03 08:14 | ER Document Report ---
ED General - General Chief Complaint: Urinary Retention Stated Complaint: URINARY RETENTION SYMPTOMS Time Seen by Provider: 12/03/16 06:38 Mode of Arrival: Ambulatory Information source: Patient Notes: 76-year-old male history of chronic indwelling Catalan presents with care facility of concern for urinary retention. Has had only 125 cc of output in 48 hours TRAVEL OUTSIDE OF THE [place] IN LAST 30 DAYS: No - HPI Onset: Yesterday Onset/Duration: Intermittent Quality of pain: Pressure Severity: Moderate Pain Level: 2 Associated symptoms: Other Exacerbated by: Denies Relieved by: Denies Similar symptoms previously: Yes Recently seen / treated by doctor: Yes - Related Data Allergies/Adverse Reactions: No Known Allergies Allergy (Verified 09/20/16 21:14) Past Medical History - Social History Smoking Status: Never Smoker Cigarette use (# per day): No Chew tobacco use (# tins/day): No Smoking Education Provided: No Family History: Reviewed & Not Pertinent - Past Medical History Cardiac Medical History: Reports: Hx Coronary Artery Disease - stent x 1, Hx Heart Attack - 2003, Hx Hypertension, Hx Peripheral Vascular Disease Pulmonary Medical History: Reports: Hx Asthma - as child Denies: Hx Bronchitis, Hx COPD, Hx Pneumonia, Hx Tuberculosis Neurological Medical History: Denies: Hx Cerebrovascular Accident, Hx Seizures Endocrine Medical History: Reports: Hx Diabetes Mellitus Type 2 Renal/ Medical History: Reports: Hx Benign Prostatic Hyperplasia. Denies: Hx Peritoneal Dialysis GI Medical History: Denies: Hx Hepatitis, Hx Hiatal Hernia, Hx Ulcer Musculoskeltal Medical History: Denies Hx Arthritis Psychiatric Medical History: Reports: Hx Dementia Denies: Hx Anxiety, Hx Attention Deficit Hyperactivity Disorder, Hx Bipolar Disorder, Hx Borderline Personality Disorder, Hx Depression, Hx Obsessive Compulsive Disorder, Hx Personality Disorder, Hx Schizoaffective Disorder, Hx Schizophrenia Traumatic Medical History: Denies: Hx Fractures, Hx Gunshot Wound, Hx Liver Laceration, Hx Pneumothorax, Hx Spine Fracture, Hx Spleen Laceration/Rupture, Hx Traumatic Brain Injury Infectious Medical History: Denies: Hx Hepatitis Past Surgical History: Reports: Hx Abdominal Surgery, Hx Cardiac Surgery - defibrillator, Hx Internal Defibrillator, Hx Orthopedic Surgery - left BKA, Hx Vascular Surgery - left groin. Denies: Hx Open Heart Surgery - Immunizations Hx Diphtheria, Pertussis, Tetanus Vaccination: No Review of Systems - Review of Systems Notes: PHYSICAL EXAMINATION: GENERAL: Well-appearing, well-nourished and in no acute distress. HEAD: Chronic post CVA appearance EYES: Pupils equal round and reactive to light, extraocular movements intact, sclera anicteric, conjunctiva are normal. ENT: Nares patent, oropharynx clear without exudates. Moist mucous membranes. NECK: Normal range of motion, supple without lymphadenopathy LUNGS: Breath sounds clear to auscultation bilaterally and equal. No wheezes rales or rhonchi. HEART: Regular rate and rhythm without murmurs ABDOMEN: Abdomen distended, chronic ventral penile changes Musculoskeletal: Normal range of motion, no pitting or edema. No cyanosis. NEUROLOGICAL: Poor speech chronic secondary to CVA PSYCH: Normal mood, normal affect. SKIN: Warm, Dry, normal turgor, no rashes or lesions noted. Physical Exam - Vital signs Vitals: Temp Pulse Resp BP Pulse Ox 98.2 F 80 18 156/75 H 96 12/03/16 06:39 12/03/16 06:39 12/03/16 06:39 12/03/16 06:39 12/03/16 06:39 Course - Re-evaluation Re-evalutation: 12/03/16 07:29 A 14 coud was placed with no difficulty, large amount of blood was noted which was flushed multiple times 12/03/16 08:53 Patient notes he feels much better, his urinalysis does have large white blood cells but it does also have large blood. Urine culture is pending given that patient is afebrile otherwise looks well. I will leave Catalan in place After performing a Medical Screening Examination, I estimate there is LOW risk for ACUTE APPENDICITIS, BOWEL OBSTRUCTION, ACUTE CHOLECYSTITIS, PERFORATED DIVERTICULITIS, INCARCERATED HERNIA, PANCREATITIS, or PERFORATED ULCER, thus I consider the discharge disposition reasonable. Also, there is no evidence or peritonitis, sepsis, or toxicity. I have reevaluated this patient multiple times and no significant life threatening changes are noted. The patient and I have discussed the diagnosis and risks, and we agree with discharging home with close follow-up with the understanding that symptoms and presentations can change. We also discussed returning to the Emergency Department immediately if new or worsening symptoms occur. We have discussed the symptoms which are most concerning (e.g., bloody stool, fever, changing or worsening pain, intractable vomiting - standard verbal up date) that necessitate immediate return. - Vital Signs Vital signs: Temp Pulse Resp BP Pulse Ox 98.2 F 80 18 156/75 H 96 12/03/16 06:39 12/03/16 06:39 12/03/16 06:39 12/03/16 06:39 12/03/16 06:39 - Laboratory Laboratory results interpreted by me: 12/03/16 07:27 Urine Protein >=500 H Urine Blood LARGE H Ur Leukocyte Esterase SMALL H Urine Ascorbic Acid 20 H Discharge - Discharge Clinical Impression: Weakness on right side of face, Dysphagia, oral phase, Urinary retention, Hematuria Condition: Stable Disposition: HOME, SELF-CARE Instructions: Hematuria ([facility]), Urinary Retention ([facility]) Referrals: DIMITRI LEDESMA MD [ACTIVE STAFF] - Follow up tomorrow
[2016-12-03 08:45] LABS: APPEARANCE,URINE SLIGHTLY-CLOUDY; BILIRUBIN,URINE NEGATIVE (NEGATIVE); GLUCOSE, URINE NEGATIVE (NEGATIVE); KETONES,URINE NEGATIVE (NEGATIVE); LEUKOCYTE ESTERASE,URINE SMALL (NEGATIVE); NITRITE,URINE NEGATIVE (NEGATIVE); PROTEIN,URINE >=500 mg/dL (NEGATIVE); URINE SPECIFIC GRAVITY 1.011; UROBILINOGEN,URINE NEGATIVE mg/dL (<2.0)
[2016-12-03 09:34] VITALS: BP 136/76
== END 2016-12-03 09:52 | disposition home or self-care (01) ==
LOC: ER 06:30
DX: R53.1 Weakness (principal); R13.10 Dysphagia, unspecified; R33.9 Retention of urine, unspecified; R31.9 Hematuria, unspecified
CPT/HCPCS: 99284; 51702; 87086; 87088; 81001; 87186; A9270; J3490

== ENCOUNTER 2016-12-08 12:08 | Emergency (ER) | payer MEDICARE, MEDICAID ==
[2016-12-08 12:35] VITALS: BP 147/79
[2016-12-08 13:35] LABS: BILIRUBIN,URINE NEGATIVE (NEGATIVE); GLUCOSE, URINE NEGATIVE (NEGATIVE); KETONES,URINE NEGATIVE (NEGATIVE); LEUKOCYTE ESTERASE,URINE SMALL (NEGATIVE); NITRITE,URINE NEGATIVE (NEGATIVE); PROTEIN,URINE >=500 mg/dL (NEGATIVE); URINE SPECIFIC GRAVITY 1.012; UROBILINOGEN,URINE NEGATIVE mg/dL (<2.0)
[2016-12-08 13:37] LABS: APPEARANCE,URINE TURBID
--- NOTE | 2016-12-08 14:50 | RADIOLOGY REPORT (SQ) ---
EXAM DESCRIPTION: U/S SCROTUM W/DOPPLER COMPLETED DATE/TIME: 12/08/2016 2:38 pm REASON FOR STUDY: pain right testicle COMPARISON: None. TECHNIQUE: Static and realtime tanner scale imaging of the scrotum and testes. Selected color Doppler and spectral images recorded to document blood flow. LIMITATIONS: None. FINDINGS: RIGHT: TESTICLE: Normal size. Normal echotexture. Normal blood flow. No mass. EPIDIDYMIS: Normal. HYDROCELE OR VARICOCELE: No. HERNIA OR EXTRA-TESTICULAR MASS: No. OTHER: No other significant finding. LEFT: TESTICLE: Normal size. Decreased echotexture with with respect to the contralateral testis. Normal blood flow. No mass. EPIDIDYMIS: Normal. HYDROCELE OR VARICOCELE: Small hydrocele. Borderline varicocele. HERNIA OR EXTRA-TESTICULAR MASS: No. OTHER: No other significant finding. IMPRESSION: NO TESTICULAR MASS OR TORSION. DECREASED ECHOGENICITY OF THE LEFT TESTIS WITH RESPECT T O THE RIGHT MAY REPRESENT ORCHITIS. SMALL LEFT HYDROCELE AND BORDERLINE VARICOCELE. TECHNICAL DOCUMENTATION: JOB ID: [id number]- All Rights Reserved
[2016-12-08] MEDS ORDERED: CEPHALEXIN 500 MG CAPSULE PO ONE (14:52)
--- NOTE | 2016-12-08 15:00 | ER Document Report ---
ED GI/ - General Chief Complaint: Blood in Catheter Stated Complaint: BLOOD IN URINE Time Seen by Provider: 12/08/16 12:21 Notes: Patient is a 76-year-old male who presents emergency department via EMS from [facility] with hematuria. 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 Per report from EMS the catheter was changed today and after placement there was hematuria noted within the bag so they called EMS. Patient denies any pain at the site. Denies any abdominal pain. Admits to testicular pain worse on the right than on the left. Denies any other symptoms. 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 TRAVEL OUTSIDE OF THE [place] IN LAST 30 DAYS: No - Related Data Allergies/Adverse Reactions: No Known Allergies Allergy (Verified 09/20/16 21:14) Past Medical History - Social History Smoking Status: Former Smoker Family History: Reviewed & Not Pertinent - Past Medical History Cardiac Medical History: Reports: Hx Coronary Artery Disease - stent x 1, Hx Heart Attack - 2003, Hx Hypercholesterolemia, Hx Hypertension, Hx Peripheral Vascular Disease Pulmonary Medical History: Reports: Hx Asthma - as child Denies: Hx Bronchitis, Hx COPD, Hx Pneumonia, Hx Tuberculosis Neurological Medical History: Denies: Hx Cerebrovascular Accident, Hx Seizures Endocrine Medical History: Reports: Hx Diabetes Mellitus Type 2 Renal/ Medical History: Reports: Hx Benign Prostatic Hyperplasia. Denies: Hx Peritoneal Dialysis GI Medical History: Denies: Hx Hepatitis, Hx Hiatal Hernia, Hx Ulcer Musculoskeltal Medical History: Denies Hx Arthritis Psychiatric Medical History: Reports: Hx Dementia Denies: Hx Anxiety, Hx Attention Deficit Hyperactivity Disorder, Hx Bipolar Disorder, Hx Borderline Personality Disorder, Hx Depression, Hx Obsessive Compulsive Disorder, Hx Personality Disorder, Hx Schizoaffective Disorder, Hx Schizophrenia Traumatic Medical History: Denies: Hx Fractures, Hx Gunshot Wound, Hx Liver Laceration, Hx Pneumothorax, Hx Spine Fracture, Hx Spleen Laceration/Rupture, Hx Traumatic Brain Injury Infectious Medical History: Denies: Hx Hepatitis Past Surgical History: Reports: Hx Abdominal Surgery, Hx Cardiac Surgery - defibrillator, Hx Internal Defibrillator, Hx Orthopedic Surgery - left BKA, Hx Vascular Surgery - left groin. Denies: Hx Open Heart Surgery - Immunizations Hx Diphtheria, Pertussis, Tetanus Vaccination: No Review of Systems - Review of Systems Constitutional: No symptoms reported Cardiovascular: No symptoms reported Respiratory: No symptoms reported Gastrointestinal: No symptoms reported Genitourinary: See HPI -: Yes All other systems reviewed and negative Physical Exam - Vital signs Vitals: Temp Pulse Resp BP Pulse Ox 98.3 F 86 16 147/79 H 96 12/08/16 12:34 12/08/16 12:34 12/08/16 12:34 12/08/16 12:34 12/08/16 12:34 - Notes Notes: PHYSICAL EXAM GENERAL: Alert, interacts well. HEAD: Normocephalic, atraumatic. EYES: Pupils equal, round, and reactive to light. Extraocular movements intact. FACE: weakness right face LUNGS: Clear to auscultation bilaterally, no wheezes, rales, or rhonchi. No respiratory distress. HEART: Regular rate and rhythm. No murmurs, gallops, or rubs. ABDOMEN: Soft, nondistended, nontender. No guarding, rebound, or rigidity.. Bowel sounds present in all 4 quadrants. EXTREMITIES: Moves left extremities spontaneously, Weakness on left hand 2/5 strength 5/5 in right extremities. No edema, radial and dorsalis pedis pulses 2/ 4 on right foot. No cyanosis. NEUROLOGICAL: Alert and oriented x4. Normal speech. PSYCH: Normal affect, normal mood. SKIN: Warm, dry, normal turgor. No rashes or lesions noted. - Genitourinary Inspection: Blood at meatus Tenderness: Nontender Cremasteric reflex: Normal Scrotum: Other - Minimal tenderness to palpation of the right testicle Course - Re-evaluation Re-evalutation: 12/08/16 18:11 Patient evaluated today for traumatic Catalan placement. Catalan with blood-tinged urine but no evidence of clot. No evidence of occlusion. Ultrasound of the testicles revealed possible orchitis left testicle but no evidence of correlation physical exam. Will discharge patient home on Keflex given previous culture from previous evaluation on November 25. Instruction to follow-up with urology - Vital Signs Vital signs: Temp Pulse Resp BP Pulse Ox 98.3 F 86 16 147/79 H 96 12/08/16 12:34 12/08/16 12:34 12/08/16 12:34 12/08/16 12:34 12/08/16 12:34 - Laboratory Laboratory results interpreted by me: 12/08/16 12:38 Urine Protein >=500 H Urine Blood LARGE H Ur Leukocyte Esterase SMALL H Urine Ascorbic Acid 40 H - Diagnostic Test Radiology reviewed: Reports reviewed Discharge - Discharge Clinical Impression: Hematuria, History of CVA (cerebrovascular accident) UTI (urinary tract infection) due to urinary indwelling catheter Qualifiers: Indwelling urinary catheter type: indwelling urethral catheter Encounter type: subsequent encounter Qualified Code(s): T83.511D - Infection and inflammatory reaction due to indwelling urethral catheter, subsequent encounter Condition: Good Disposition: HOME, SELF-CARE Instructions: Cephalexin ([facility]) Additional Instructions: You are being treated for an UTI with Keflex. Please follow up with your urologist The blood in your urine is due to traumatic catheter placement and should resolve as your tissue heals. Prescriptions: Cephalexin Monohydrate [Keflex 500 mg Capsule] 500 mg PO BID 7 Days Forms: Elevated Blood Pressure Referrals: CHAD HILLIARD MD [Primary Care Provider] - Follow up as needed DIMITRI LEDESMA MD [ACTIVE STAFF] - Follow up in 1 week
== END 2016-12-08 17:24 | disposition home or self-care (01) ==
LOC: ER 12:08
DX: T83.511D Infection and inflammatory reaction due to indwelling urethral catheter, subsequent encounter (principal); R31.9 Hematuria, unspecified; Z86.73 Personal history of transient ischemic attack (TIA), and cerebral infarction without residual deficits
CPT/HCPCS: 76870; 81001; 93976; 99284

== ENCOUNTER 2017-01-04 00:56 | Inpatient (IN) | payer MEDICARE, MEDICAID ==
[2017-01-04] MEDS ORDERED: RINGERS SOLUTION,LACTATED 2,000 ML IV ONE ×2 (01:03→02:12)
[2017-01-04] MEDS ORDERED: VANCOMYCIN HCL INJ 1000 MG VIAL IV ONE (01:03)
[2017-01-04] MEDS ORDERED: CEFEPIME 2 GM/D5W RTU 50 ML IV ONE (01:03)
[2017-01-04] MEDS ORDERED: GLYCOPYRROLATE INJ 0.4 MG/2 ML VIAL IM ONE (01:06)
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
[2017-01-04 01:52] LABS: HEMATOCRIT 36.4 % (37.9-51.0); HGB HCT DIFFERENCE -3.4; MEAN CORPUSCULAR HEMOGLOBIN 24.2 pg (27.0-33.4); MEAN CORPUSCULAR HGB CONC 30.3 g/dL (32.0-36.0); MEAN CORPUSCULAR VOLUME 80 fl (80-97); RED BLOOD COUNT 4.56 10^6/uL (4.35-5.55); RED CELL DISTRIBUTION WIDTH 17.8 % (11.5-14.0); VENOUS BLOOD BASE EXCESS 0.2 mmol/L; VENOUS BLOOD HCO3 25.4 mmol/L (20-32); VENOUS BLOOD PCO2 43.6 mmHg (35-63); VENOUS BLOOD PH 7.38 (7.30-7.42); WHITE BLOOD COUNT 27.5 10^3/uL (4.0-10.5)
[2017-01-04 02:05] LABS: BLOOD UREA NITROGEN 90 mg/dL (7-20); CALCIUM 9.6 mg/dL (8.4-10.2); CARBON DIOXIDE 23 mmol/L (22-30); CHLORIDE 105 mmol/L (98-107); CREATININE RESULT 2.78 mg/dL (0.52-1.25); GLUCOSE 259 mg/dL (75-110); POTASSIUM 4.7 mmol/L (3.6-5.0)
[2017-01-04 02:13] LABS: SODIUM 150.2 mmol/L (137-145)
[2017-01-04 02:16] LABS: ANION GAP 22 (5-19)
[2017-01-04 02:24] LABS: BAND NEUTROPHILS % (MANUAL) 10 % (3-5); BASOPHILS % (MANUAL) 0 % (0-2); EOSINOPHILS % (MANUAL) 0 % (0-6); LYMPHOCYTES % (MANUAL) 7 % (13-45); TOTAL CELLS COUNTED 100
[2017-01-04 02:26] LABS: ANISOCYTOSIS 1+; MICROCYTOSIS SLIGHT; OVALOCYTES SLIGHT; POIKILOCYTOSIS 1+; POLYCHROMASIA SLIGHT; TARGET CELLS SLIGHT; TEAR DROP CELLS SLIGHT; TOXIC GRANULATION SLIGHT; TOXIC VACUOLATION PRESENT
[2017-01-04 02:27] LABS: PLATELET CLUMPS PRESENT
--- NOTE | 2017-01-04 02:31 | RADIOLOGY REPORT (SQ) ---
EXAM DESCRIPTION: CHEST SINGLE VIEW COMPLETED DATE/TIME: 01/04/2017 2:18 am REASON FOR STUDY: dyspnea COMPARISON: Chest x-ray 10/09/2016. EXAM PARAMETERS: NUMBER OF VIEWS: One view. TECHNIQUE: Single frontal radiographic view of the chest acquired. RADIATION DOSE: NA LIMITATIONS: The patient is rotated FINDINGS: LUNGS AND PLEURA: Ground-glass opacities are seen in the left lower lobe. No pleural effu gina or pneumothorax. MEDIASTINUM AND HILAR STRUCTURES: No masses. Contour normal. HEART AND VASCULAR STRUCTURES: Heart normal in size. No overt vascular congestion. BONES: Degenerative changes in the spine. HARDWARE: There is a left-sided pacemaker. IMPRESSION: Ground-glass opacities in the left lower lobe, may represent atelectasis or pneumonia. Radiographic followup recommended. TECHNICAL DOCUMENTATION: JOB ID: [id number]
[2017-01-04] MEDS ORDERED: METRONIDAZOLE 500 MG/NS RTU 100 ML IV ONE (02:33)
[2017-01-04] MEDS ORDERED: LEVOFLOXACIN 750 MG/D5W RTU 150 ML IV ONE (02:33)
[2017-01-04] MEDS ORDERED: DEXTROSE 5%-WATER 250 ML with NOREPINEPHRINE BITARTRATE 4 MG IV PRN ×2 (02:48)
[2017-01-04] MEDS ORDERED: ACETAMINOPHEN 650 MG SUPP.RECT PR PRN (02:48)
[2017-01-04] MEDS ORDERED: ONDANSETRON HCL INJ/PF 4 MG/2 ML SDV IV PRN (02:49)
[2017-01-04] MEDS ORDERED: VANCOMYCIN HCL 0 MG in DEXTROSE 5%-WATER 250 ML IV NR (03:00)
[2017-01-04 03:09] LABS: MAGNESIUM 2.4 mg/dL (1.6-2.3); PHOSPHORUS 2.8 mg/dL (2.5-4.5)
[2017-01-04 03:21] LABS: CREATINE KINASE MB 1.25 ng/mL (<4.55)
[2017-01-04 03:32] LABS: TROPONIN I 1.8 ng/mL
[2017-01-04 03:48] LABS: APPEARANCE,URINE TURBID; BILIRUBIN,URINE NEGATIVE (NEGATIVE); GLUCOSE, URINE 50 mg/dL (NEGATIVE); KETONES,URINE NEGATIVE (NEGATIVE); LEUKOCYTE ESTERASE,URINE SMALL (NEGATIVE); NITRITE,URINE NEGATIVE (NEGATIVE); PROTEIN,URINE 100 mg/dL (NEGATIVE); URINE SPECIFIC GRAVITY 1.018; UROBILINOGEN,URINE NEGATIVE mg/dL (<2.0)
[2017-01-04 03:55] LABS: RBC,URINE TOO NUMEROUS TO CNT /HPF; WBC,URINE TOO NUMEROUS TO CNT /HPF
[2017-01-04] MEDS ORDERED: NOREPINEPHRINE BITARTRATE INJ/PF 4 MG/4 ML SDV IV ONE (04:14)
--- NOTE | 2017-01-04 04:54 | PDOC H&P ---
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 He presents to the emergency room after the nursing facility finds pyuria from Catalan without urine output and hypotension. In the emergency room is found to have sepsis with hypotension tachycardia and fever, leukocytosis, acute renal failure Catalan catheter with obstruction from pyuria and left lower lobe pneumonia. He is unable to provide any history he is chronically ill-and toxic appearing with cachexia and temporal wasting is referred to the hospitalist for admission. Past Medical History Cardiac Medical History: Reports: Coronary Artery Disease - stent x 1, Myocardial Infarction - 2003, Hyperlipidema, Hypertension, Peripheral Vascular Disease Pulmonary Medical History: Reports: Asthma - as child Denies: Bronchitis, Chronic Obstructive Pulmonary Disease (COPD), Pneumonia, Tuberculosis Neurological Medical History: Denies: Seizures Endocrine Medical History: Reports: Diabetes Mellitus Type 2 GI Medical History: Denies: Hepatitis, Hiatal Hernia Musculoskeltal Medical History: Denies: Arthritis Psychiatric Medical History: Reports: Dementia Denies: Attention Deficit Hyperactivity Disorder, Bipolar Disorder, Depression, Personality Disorder, Schizoaffective Disorder Traumatic Medical History: Denies: Gunshot Wound, Pneumothorax, Traumatic Brain Injury Hematology: Denies: Anemia, Sickle Cell Disease Past Surgical History Past Surgical History: Reports: Internal Defibrillator, Orthopedic Surgery - left BKA, Vascular Surgery - left groin Social History Information Source: Emergency Med Personnel, [facility] Records Lives with: [facility] Smoking Status: Unknown if Ever Smoked Frequency of Alcohol Use: None Hx Recreational Drug Use: No Drugs: None Hx Prescription Drug Abuse: No - Advance Directive Resuscitation Status: Full Code Family History Family History: None, Reviewed & Not Pertinent, Other - Unobtainable Parental Family History Reviewed: Yes - Unobtainable Children Family History Reviewed: Yes - Unobtainable Sibling(s) Family History Reviewed.: Yes - Unobtainable Medication/Allergy Home Medications: Acetaminophen [Tylenol 650 mg Supp] 650 mg OR Q4HP PRN 10/09/16 Aspirin [Aspirin 81 mg Chewable Tablet] 81 mg PEG DAILY 10/09/16 Atorvastatin Calcium [Lipitor 10 mg Tablet] 10 mg PEG QHS 10/09/16 Carvedilol [Coreg 6.25 mg Tablet] 6.25 mg PEG Q12 10/09/16 Clopidogrel Bisulfate [Plavix 75 mg Tablet] 75 mg PEG DAILY 10/09/16 Folic Acid [Folvite 1 mg Tablet] 1 mg PEG DAILY 10/09/16 Latanoprost [Xalatan 0.005% Oph Soln 2.5 ml] 1 drop OD QHS 10/09/16 Lisinopril 5 mg PEG DAILY 10/09/16 Metformin HCl 500 mg PEG BID 10/09/16 Tamsulosin HCl [Flomax 0.4 mg Cap.sr] 0.4 mg PEG DAILY 10/09/16 Travoprost (Benzalkonium) [Travatan 0.004% Eye Drop] 1 drop OD QHS 10/09/16 Cephalexin Monohydrate [Keflex 500 mg Capsule] 500 mg PO BID 7 Days 12/08/16 Allergies/Adverse Reactions: No Known Allergies Allergy (Verified 09/20/16 21:14) Review of Systems ROS unobtainable: Due to mental status - Unobtainable secondary to dementia with delirium Physical Exam Vital Signs: Temp Pulse Resp BP Pulse Ox 100.3 F 24 H 113/56 L 99 01/04/17 02:40 01/04/17 02:40 01/04/17 02:40 01/04/17 02:40 General appearance: PRESENT: disheveled, severe distress, thin Head exam: PRESENT: atraumatic, normocephalic Eye exam: PRESENT: conjunctiva pink, EOMI, PERRLA. ABSENT: scleral icterus Ear exam: PRESENT: normal external ear exam Mouth exam: PRESENT: dry mucosa Neck exam: ABSENT: carotid bruit, JVD, lymphadenopathy, thyromegaly Respiratory exam: PRESENT: accessory muscle use, crackles, decreased breath sounds, rales, retraction, rhonchi, tachypnea Cardiovascular exam: PRESENT: gallop, RRR. ABSENT: diastolic murmur, rubs, systolic murmur Pulses: PRESENT: normal dorsalis pedis pul Vascular exam: PRESENT: normal capillary refill GI/Abdominal exam: PRESENT: normal bowel sounds, soft. ABSENT: distended, guarding, mass, organolmegaly, rebound, tenderness Rectal exam: PRESENT: deferred Gentrourinary exam: PRESENT: erythema, lacerations - 3 cm laceration from the meatus proximally with Catalan. ABSENT: ecchymosis, scrotal swelling Extremities exam: PRESENT: other - Severe peripheral vascular disease with chronic changes no edema no open ulcer Musculoskeletal exam: PRESENT: other - Generalized muscle atrophy and contractures Neurological exam: PRESENT: altered, aphasic. ABSENT: alert, awake, oriented to person, oriented to place, normal gait Skin exam: PRESENT: other - 1 1 x 1 cm skin tear and a 1 x 1 cm stage II sacral decubiti Results Laboratory Results: 01/04/17 03:10 Urine Color RED Urine Appearance TURBID Urine pH 5.[address] 1.018 Urine Protein 100 H Urine Glucose (UA) 50 H Urine Ketones NEGATIVE Urine Blood LARGE H Urine Nitrite NEGATIVE Ur Leukocyte Esterase SMALL H Impressions: Chest X-Ray 01/04/17 01:02 IMPRESSION: Ground-glass opacities in the left lower lobe, may represent atelectasis or pneumonia. Radiographic followup recommended. Assessment & Plan - Diagnosis (1) Left lower lobe pneumonia Qualifiers: Pneumonia type: due to unspecified organism Qualified Code(s): J18.1 - Lobar pneumonia, unspecified organism Is this a current diagnosis for this admission?: YesPlan: Appears likely secondary to aspiration of gastric content complicated by n.p.o. status PEG tube feeds on hold empiric antibiotics scheduled albuterol and Atrovent follow-up CBC consider ABG. (2) Acute kidney injury Is this a current diagnosis for this admission?: YesPlan: Multifactorial secondary to severe sepsis with hypotension and prerenal azotemia given a BUN of 90 and a sodium of 150. Avoid nephrotoxic meds and doses IV fluid challenge and reevaluate chemistry (3) Pyelonephritis Is this a current diagnosis for this admission?: YesPlan: Concerning for severe pyuria with obstruction bladder irrigation empiric antibiotics blood and urine culture follow-up CBC (4) Severe sepsis Is this a current diagnosis for this admission?: YesPlan: Secondary to pneumonia and pyelonephritis, IV fluid challenge empiric antibiotics consider pressors (5) Diabetes Qualifiers: Diabetes mellitus type: type 2 Diabetes mellitus complication status: with circulatory complication Diabetes mellitus usp insulin use: without usp use Is this a current diagnosis for this admission?: YesPlan: Sliding scale insulin (6) Laceration of penis Is this a current diagnosis for this admission?: YesPlan: Surgical consultation consideration of suprapubic catheter. - Time Time Spent: 50 to 70 Minutes - Inpatient Certification Medical Necessity: Need Close Monitoring Due to Risk of Patient Decompensation
[2017-01-04] MEDS: NORMAL SALINE 1000 ML 1,000 ML IV SCH ×3 (05:09→12:48)
[2017-01-04] MEDS: HEPARIN SOD (PORCINE) 5,000 UNIT/ML 1 ML SYRINGE SUBCUT SCH ×3 (06:00→21:45)
[2017-01-04 06:47] LABS: HEMATOCRIT 31.3 % (37.9-51.0); HEMOGLOBIN 9.6 g/dL (13.5-17.0); HGB HCT DIFFERENCE -2.5; MEAN CORPUSCULAR HEMOGLOBIN 24.3 pg (27.0-33.4); MEAN CORPUSCULAR HGB CONC 30.7 g/dL (32.0-36.0); MEAN CORPUSCULAR VOLUME 79 fl (80-97); RED BLOOD COUNT 3.96 10^6/uL (4.35-5.55); RED CELL DISTRIBUTION WIDTH 18.1 % (11.5-14.0); WHITE BLOOD COUNT 22.5 10^3/uL (4.0-10.5)
[2017-01-04 07:15] LABS: ALANINE AMINOTRANSFERASE 84 U/L (21-72); ALBUMIN 2.8 g/dL (3.5-5.0); ALKALINE PHOSPHATASE 66 U/L (38-126); ANION GAP 15 (5-19); ASPARTATE AMINO TRANSFERASE 117 U/L (17-59); BILIRUBIN,DIRECT 0.4 mg/dL (0.0-0.4); BILIRUBIN,TOTAL 0.5 mg/dL (0.2-1.3); BLOOD UREA NITROGEN 88 mg/dL (7-20); CALCIUM 8.9 mg/dL (8.4-10.2); CARBON DIOXIDE 25 mmol/L (22-30); CHLORIDE 105 mmol/L (98-107); CREATININE RESULT 2.49 mg/dL (0.52-1.25); GLUCOSE 288 mg/dL (75-110); POTASSIUM 4.3 mmol/L (3.6-5.0); SODIUM 145.1 mmol/L (137-145); TOTAL PROTEIN 6.6 g/dL (6.3-8.2)
[2017-01-04 07:24] LABS: BAND NEUTROPHILS % (MANUAL) 6 % (3-5); BASOPHILS % (MANUAL) 0 % (0-2); EOSINOPHILS % (MANUAL) 0 % (0-6); LYMPHOCYTES % (MANUAL) 2 % (13-45); TOTAL CELLS COUNTED 100
[2017-01-04 07:25] LABS: ANISOCYTOSIS 1+; CREATINE KINASE MB 3.5 ng/mL (<4.55); HYPOCHROMASIA 1+; MICROCYTOSIS SLIGHT; POLYCHROMASIA SLIGHT
[2017-01-04 07:26] LABS: OVALOCYTES SLIGHT; POIKILOCYTOSIS 1+; TARGET CELLS SLIGHT; TEAR DROP CELLS SLIGHT
[2017-01-04] MEDS ORDERED: NORMAL SALINE 1000 ML 1,000 ML IV PRN (07:27)
[2017-01-04] MEDS ORDERED: PHARMACY COMMUNICATION ORDER MC NR (07:30)
[2017-01-04 07:35] LABS: TROPONIN I 1.08 ng/mL
[2017-01-04] MEDS: IPRATROPIUM/ALBUTEROL 0.5-2.5 MG/3 ML AMPUL NEB SCH ×3 (08:01→20:05)
[2017-01-04] MEDS ORDERED: DEXTROSE 40% GEL 15 GM TUBE PO PRN ×2 (08:59)
[2017-01-04] MEDS ORDERED: GLUCAGON,HUMAN RECOMB 1 MG INJ IM PRN (08:59)
[2017-01-04] MEDS ORDERED: DEXTROSE 50%-WATER 25 GM/50 ML DISP.SYRIN IV PRN ×2 (08:59)
[2017-01-04] MEDS ORDERED: NORMAL SALINE 1000 ML 1,000 ML IV ONE (09:02)
[2017-01-04] MEDS ORDERED: DEXTROSE 5%-WATER 250 ML with PHENYLEPHRINE HCL 40 MG IV PRN ×2 (09:02)
[2017-01-04] MEDS ORDERED: PHENYLEPHRINE HCL INJ/PF 10 MG/1 ML SDV ONE (09:06)
--- NOTE | 2017-01-04 09:39 | EKG REPORT ---
SEVERITY:- ABNORMAL ECG - SINUS TACHYCARDIA MULTIPLE VENTRICULAR AND SUPRAVENTRICULAR PREMATURE COMPLEXES FIRST DEGREE AV BLOCK NONSPECIFIC INTRAVENTRICULAR CONDUCTION DELAY INFERIOR INFARCT, AGE INDETERMINATE ST DEPRESSION, CONSIDER ISCHEMIA, ANT-LAT LDS : Confirmed by: Marcy Herndon 04-Jan-2017 09:38:06
--- NOTE | 2017-01-04 09:47 | PDOC PROGRESS REPORT ---
Subjective Progress Note for:: 01/04/17 Subjective:: Patient denies any chest pain, shortness of breath, abdominal pain. Will not open his eyes for me. And actively resists opening his right eye. Physical Exam Vital Signs: Temp Pulse Resp BP Pulse Ox 99.5 F 104 H 16 106/57 L 96 01/04/17 04:36 01/04/17 08:01 01/04/17 08:01 01/04/17 06:15 01/04/17 08:01 Intake & Output 01/03/17 01/04/17 01/05/17 06:59 06:59 06:59 Intake Total 4422 Output Total 210 75 Balance 4212 -75 Weight 85.1 kg Exam: GENERAL: R[place], oriented to person and place, ill-appearing HEENT: Mild right eye edema, left pupil round and to light, dry mucosa, no JVD, midline trachea RESPIRATORY: Left lobe rhonchi CARDIAC: Regular rate and rhythm, no gallops/rubs ABDOMEN: Soft, distended, slightly tender to palpation, diminished bowel sounds , no rebound, no guarding EXTREMETIES: No edema, cyanosis, clubbing, left BKA, right great toe amputation NEUROLOGIC: oriented to person/place, left facial droop, dysarthria, left hemiparesis PSYCH: Normal mood, normal affect SKIN: 1 Centimeter stage II right hip decubitus ulcer : Inferior healed meatal tear extending up glands to approximately 3 cm of shaft, slight blood noted Results Laboratory Results: 01/04/17 06:39 01/04/17 06:39 01/04/17 01/04/17 01/04/17 03:10 06:39 06:39 WBC 22.5 H RBC 3.96 L Hgb 9.6 L Hct 31.3 L MCV 79 L MCH 24.3 L MCHC 30.7 L RDW 18.1 H Plt Count 151 Seg Neutrophils % Not Reportable Lymphocytes % Not Reportable Monocytes % Not Reportable Eosinophils % Not Reportable Basophils % Not Reportable Absolute Neutrophils Not Reportable Absolute Lymphocytes Not Reportable Absolute Monocytes Not Reportable Absolute Eosinophils Not Reportable Absolute Basophils Not Reportable Sodium 145.1 H Potassium 4.3 Chloride 105 Carbon Dioxide 25 Anion Gap 15 BUN 88 H Creatinine 2.49 H Est GFR ( Amer) 31 L Est GFR (Non-Af Amer) 25 L Glucose 288 H Lactic Acid Calcium 8.9 Total Bilirubin 0.5 AST 117 H ALT 84 H Alkaline Phosphatase 66 Total Protein 6.6 Albumin 2.8 L Urine Color RED Urine Appearance TURBID Urine pH 5.0 Ur Specific [place] 1.018 Urine Protein 100 H Urine Glucose (UA) 50 H Urine Ketones NEGATIVE Urine Blood LARGE H Urine Nitrite NEGATIVE Ur Leukocyte Esterase SMALL H 01/04/17 06:39 WBC RBC Hgb Hct MCV MCH MCHC RDW Plt Count Seg Neutrophils % Lymphocytes % Monocytes % Eosinophils % Basophils % Absolute Neutrophils Absolute Lymphocytes Absolute Monocytes Absolute Eosinophils Absolute Basophils Sodium Potassium Chloride Carbon Dioxide Anion Gap BUN Creatinine Est GFR ( Amer) Est GFR (Non-Af Amer) Glucose Lactic Acid 7.0 H Calcium Total Bilirubin AST ALT Alkaline Phosphatase Total Protein Albumin Urine Color Urine Appearance Urine pH Ur Specific [place] Urine Protein Urine Glucose (UA) Urine Ketones Urine Blood Urine Nitrite Ur Leukocyte Esterase 01/04/17 01/04/17 06:39 06:39 Creatine Kinase 261 H CK-MB (CK-2) 3.50 Troponin I 1.080 Impressions: Chest X-Ray 01/04/17 01:02 IMPRESSION: Ground-glass opacities in the left lower lobe, may represent atelectasis or pneumonia. Radiographic followup recommended. Assessment & Plan - Diagnosis (1) Severe sepsis with septic shock Is this a current diagnosis for this admission?: YesPlan: Severe sepsis and septic shock secondary to complicated UTI and likely aspiration pneumonia. Will place central line. Maintain map greater than 65. CVP every 4 hours. Currently requiring both Levophed and Jaycob-Synephrine. Consider vasopressin in lieu of Jaycob-Synephrine. Continue volume resuscitation, gently, given patient's underlying ejection fraction of 35%. Currently on cefepime, vancomycin, and Levaquin. (2) UTI (urinary tract infection) due to urinary indwelling Catalan catheter Qualifiers: Indwelling urinary catheter type: indwelling urethral catheter Encounter type: initial encounter Qualified Code(s): T83.511A - Infection and inflammatory reaction due to indwelling urethral catheter, initial encounter; N39.0 - Urinary tract infection, site not specified Is this a current diagnosis for this admission?: YesPlan: Patient has a chronic indwelling Catalan catheter from the [facility]. Patient had significant purulent discharge on presentation. Previously grown E. coli, Proteus mirabilis. Current antibiotic coverage is sufficient. (3) Left lower lobe pneumonia Qualifiers: Pneumonia type: due to unspecified organism Qualified Code(s): J18.1 - Lobar pneumonia, unspecified organism Is this a current diagnosis for this admission?: YesPlan: Left lower lobe pneumonia secondary to aspiration. Concern for aspiration of fecal contents. Concern for gram-negative pneumonia in addition to healthcare associated pneumonia due to patient living in a nursing facility. Patient currently on vancomycin, cefepime, and Levaquin. Add guaifenesin. Scheduled nebulized treatments and attempt to obtain a sputum specimen. (4) ARF (acute renal failure) Qualifiers: Acute renal failure type: with acute tubular necrosis Qualified Code (s): N17.0 - Acute kidney failure with tubular necrosis Is this a current diagnosis for this admission?: YesPlan: 2/2 to hypotension, sepsis, and dehydration. Continue rehydration. (5) Lactic acidosis Is this a current diagnosis for this admission?: YesPlan: Overall likely secondary to sepsis, but complicated by use of Metformin. (6) NSTEMI (non-ST elevated myocardial infarction) Is this a current diagnosis for this admission?: YesPlan: Troponin of 1.8 and EKG changes segment depression in II, avL, V3,4, 5 and 6 with T-wave inversion. Patient has prior Q waves in 2 3 and aVF. Likely secondary to sepsis leading this is a type II non-STEMI. Will consult cardiology for input. Have significant prior cardiac history including AICD. (7) Chronic systolic (congestive) heart failure Is this a current diagnosis for this admission?: YesPlan: Performed on 09/22/2016 reveals a EF of 35% and grade 1/4 diastolic dysfunction. Judicious with fluid administration and check CVP. (8) Laceration of penis Qualifiers: Encounter type: subsequent encounter Qualified Code(s): S31.21XD - Laceration without foreign body of penis, subsequent encounter Is this a current diagnosis for this admission?: YesPlan: Chronic meatal erosion. Consult surgery for recommendations. (9) Diabetes Qualifiers: Diabetes mellitus type: type 2 Diabetes mellitus complication status: with circulatory complication Diabetes mellitus complication detail: with other circulatory complications Diabetes mellitus intermodal truck driver insulin use: without intermodal truck driver use Qualified Code(s): E11.59 - Type 2 diabetes mellitus with other circulatory complications Is this a current diagnosis for this admission?: YesPlan: Patient's last hemoglobin A1c was 6.1. Place patient on Accu-Cheks and sliding scale insulin. (10) Dyslipidemia Is this a current diagnosis for this admission?: YesPlan: Continue statin (11) CAD (coronary artery disease) Qualifiers: Coronary Disease-Associated Artery/Lesion type: habematolel artery [place] vs. transplanted heart: habematolel heart Associated angina: without angina Qualified Code(s): I25.10 - Atherosclerotic heart disease of habematolel coronary artery without angina pectoris Is this a current diagnosis for this admission?: Yes (12) History of cerebrovascular accident with residual deficit Is this a current diagnosis for this admission?: YesPlan: Supportive care. Turn every 2 (13) Protein-calorie malnutrition, moderate Is this a current diagnosis for this admission?: YesPlan: Check pre-Albumin and consult dietary (14) Anemia Qualifiers: Anemia type: unspecified type Qualified Code(s): D64.9 - Anemia, unspecified Is this a current diagnosis for this admission?: YesPlan: Check iron studies and check occult blood (15) Fecal impaction Is this a current diagnosis for this admission?: YesPlan: On KUB, patient has quite obvious fecal impaction. Initial reports of "black material" around PEG tube from [facility] was likely fecal material. Patient on lactulose and give mineral oil enema as well as manual disimpaction. Risk for developing Toby syndrome. (16) DVT prophylaxis Is this a current diagnosis for this admission?: YesPlan: heparin and scd (17) GI Prophylaxis Is this a current diagnosis for this admission?: YesPlan: pepcid (18) Full code status Is this a current diagnosis for this admission?: YesPlan: His care with Carrie Ruth, power of county attorney and niece who wishes him to remain full code. home: [phone] cell: [phone] - Time Time Spent with patient: 35 or more minutes Critical Time spent with patient: 35 or more minutes Medications reviewed and adjusted accordingly: Yes
[2017-01-04] MEDS: LACTULOSE SYRUP 20 GM/30 ML UDCUP PEG SCH ×3 (09:53→17:07)
[2017-01-04] MEDS: CLOPIDOGREL BISULFATE 75 MG TABLET PEG SCH (09:53)
[2017-01-04] MEDS: ASPIRIN 81 MG TABLET, CHEWABLE PEG SCH (09:53)
[2017-01-04] MEDS: FOLIC ACID 1 MG TABLET PEG SCH (09:54)
[2017-01-04] MEDS: CEFEPIME HCL 1 GM in DEXTROSE 5%-WATER 50 ML IV SCH (09:54)
--- NOTE | 2017-01-04 09:58 | RADIOLOGY REPORT (SQ) ---
EXAM DESCRIPTION: KUB/ABDOMEN (SINGLE VIEW) COMPLETED DATE/TIME: 01/04/2017 9:45 am REASON FOR STUDY: constipation COMPARISON: None. NUMBER OF VIEWS: One view. TECHNIQUE: Supine radiographic image of the abdomen acquired. LIMITATIONS: None. FINDINGS: BOWEL GAS PATTERN: Normal bowel gas pattern. No dilated loops. CONSTIPATION: marked suspect fecal impaction. CALCIFICATIONS: No suspicious calcifications. SOFT TISSUES: No gross mass or suggestion of organomegaly. HARDWARE: Gastrostomy tube. BONES: No acute fracture. No worrisome bone lesions. OTHER: No other significant finding. IMPRESSION: NO RADIOGRAPHIC EVIDENCE FOR ACUTE ABDOMINAL DISEASE. Marked constipation. Suspect fecal impaction. TECHNICAL DOCUMENTATION: JOB ID: [id number] [employer]- All Rights Reserved
[2017-01-04] MEDS ORDERED: CEFEPIME 1 GM/D5W RTU 1 GM/50 ML RTUPB IV SCH (10:00)
[2017-01-04] MEDS ORDERED: CEFTRIAXONE 1 GM/D5W RTU 50 ML IV SCH (10:00)
[2017-01-04] MEDS ORDERED: VASOPRESSIN INJ 20 UNIT/1 ML VIAL ONE (10:05)
[2017-01-04] MEDS: FAMOTIDINE INJ/PF 20 MG/2 ML SDV IV SCH ×2 (10:21→21:45)
[2017-01-04] MEDS ORDERED: DEXTROSE 5%-WATER 250 ML with VASOPRESSIN 100 UNIT IV PRN ×2 (10:25)
[2017-01-04] MEDS ORDERED: LIDOCAINE 1% INJ-PF (10 MG/ML) 30 ML SDV ONE (12:14)
[2017-01-04] MEDS: INSULIN LISPRO 100 UNIT/ML 3 ML VIAL SUBCUT PRN ×2 (12:20→17:07)
[2017-01-04] MEDS: MINERAL OIL ENEMA 133 ML PR SCH ×2 (12:20→21:47)
[2017-01-04 12:32] LABS: PROTHROMBIN TIME 20.2 SEC (11.4-15.4)
--- NOTE | 2017-01-04 12:39 | Operative Report ---
Operative Report DATE OF SURGERY: 01/04/17 PREOPERATIVE DIAGNOSIS: Sepsis POSTOPERATIVE DIAGNOSIS: Same OPERATION: Placement of right subclavian central venous access catheter. Ultrasound directed insertion SURGEON: PARAG KENDRICK ANESTHESIA: Local TISSUE REMOVED OR ALTERED: None COMPLICATIONS: None ESTIMATED BLOOD LOSS: Scant INTRAOPERATIVE FINDINGS: See below PROCEDURE: Informed consent was obtained from the patient's family. Right neck and chest wall were prepped and draped in sterile fashion. Surgical plan surgical timeout was conducted The right neck was scanned with a variable frequency linear transducer. The findings were significant for patent compressible right internal jugular vein Skin was any stopped 1% lidocaine plain. Using ultrasound as a guide, a triple- lumen central venous access catheter was threaded into the right internal jugular vein uneventfully under fluoroscopic guidance. There was excellent blood flow through all 3 lm. Catheter flushed with heparinized saline and secured to the skin with 2 silk suture and Biopatch and sterile dressing applied Subsequently the patient appeared to develop more ectopy than previously. Therefore the catheter was withdrawn approximately 7 cm such that the tip of the catheter was approximately 18 cm from the skin insertion site. This was done under sterile conditions. Portable upright chest x-ray pending time patient
[2017-01-04 13:18] LABS: CREATINE KINASE MB 3.79 ng/mL (<4.55); TROPONIN I 0.905 ng/mL
--- NOTE | 2017-01-04 13:42 | RADIOLOGY REPORT (SQ) ---
EXAM DESCRIPTION: CHEST SINGLE VIEW COMPLETED DATE/TIME: 01/04/2017 12:51 pm REASON FOR STUDY: post cvp placement COMPARISON: 01/04/2017 0152 hours NUMBER OF VIEWS: One view. TECHNIQUE: Single frontal radiographic view of the chest acquired. LIMITATIONS: None. FINDINGS: Central venous access catheter placed via right jugular approach. Catheter tip at right atrium. No pneumothorax. Radiographic appearance of the chest otherwise stable. IMPRESSION: CENTRAL VENOUS ACCESS CATHETER IN APPROPRIATE LOCATION. NO PNEUMOTHORAX. NEW CENTRAL L INE. TECHNICAL DOCUMENTATION: JOB ID: [id number] [employer]- All Rights Reserved
[2017-01-04 14:22] LABS: FOLATE > 20.00 ng/mL (>2.76)
[2017-01-04] MEDS ORDERED: BISACODYL 10 MG SUPP.RECT PR ONE (16:10)
[2017-01-04] MEDS ORDERED: MAGNESIUM CITRATE 296 ML BOTTLE PEG ONE (16:11)
[2017-01-04] MEDS: NORMAL SALINE 1000 ML 1,000 ML IV PRN (17:06)
--- NOTE | 2017-01-04 19:53 | CONSULTATION REPORT E ---
Consultation Report NAME: SEUN TOTH : 1940 AGE: 76Y DATE: 01/04/2017 610 A TO: SARY KENNEDY M.D. FROM: LENARD KAPOOR M.D. Requesting Physician REASON FOR CONSULTATION: Elevated troponin I and septic shock requiring vasopressors. HISTORY OF PRESENT ILLNESS: Note that the patient is demented and also has aphasia due to prior CVA, hence, cannot obtain a history, hence, history from the old records from here and from [facility]. The patient is a 76-year-old detention patient with a past medical history of hypertension, CAD, cardiomyopathy, AICD placement, old CVA resulting in dysphagia requiring PEG tube feeding and also aphasia and also dementia and diabetes mellitus, left BKA due to peripheral vascular disease and chronic indwelling Catalan. He was found in the detention facility to be hypotensive and without any urine output and the patient was transferred to [facility] ER where the patient was found to be hypotensive with tachycardia and fever and leukocytosis. He is on 2 pressors to keep his blood pressure up. He is on Levophed at 12 mcg/min and Jaycob-Synephrine is at 40 mcg/min. He also has new EKG changes which are more pronounced in the lateral leads compared to an earlier EKG and also his troponin is elevated at 1.8, suggesting that the patient has non-ST elevation OR. Again, no history of chest pain can be obtained from the patient but the patient in spite of all these conditions appears to be quite comfortable. He does not seem to be in any respiratory distress and he also has acute renal failure. His renal function on admission which GFR was greater than 60, has come down now with a GFR of 25 mL, which is acute renal failure. PAST MEDICAL HISTORY: Positive for history of hypertension, history of coronary artery disease, history of stent. He had a cardiac catheterization in [facility] in May 2014 where there was total occlusion of the right coronary artery with collateral to the left. He has moderate disease in the mid LAD and mid obtuse marginal 1. There was no significant gradient across the aortic valve. He had an echocardiogram done here in September 2016 where he came in with a stroke and this echo showed moderate concentric left ventricular hypertrophy as per report with LV ejection fraction of 35%, which is moderately reduced. The left atrium is mildly dilated. There is no evidence of mitral valve prolapse. There is no mitral regurgitation. There is mild aortic stenosis with a peak gradient of 18 mmHg. There is no tricuspid stenosis probably, trace to mild TR, no TR *------* value obtained, hence, cannot calculate RVSP. There is no pericardial effusion. He also on 02/22/2014 had a Lexiscan Cardiolite stress test which showed mild to moderate reversible ischemia in the apical and mid lateral wall with scar/OR of the mid and basilar inferior wall. There is left ventricular enlargement. The ejection fraction was 33% to 32%. He has a history of hypertension; at present the patient is hypotensive requiring pressors due to septic shock due to pyelonephritis and left lower lobe pneumonia. Coronary artery disease, no anginal symptoms but cannot be sure since the patient is aphasic but the patient appears to be comfortable. He has a past history of OR by stress testing. He also has a totally occluded right coronary artery and moderate disease in the obtuse marginal 1 branch and LAD by cath of May 2014. He has a past history of stent, history of AICD placement. It is not known whether the AICD has fired. He also has a history of diabetes mellitus type 2 noninsulin requiring. He has no past history of chronic kidney disease but the patient is now in acute renal failure. He has a past history of CVA with left-sided weakness. He also has a peripheral arterial disease; he has left BKA. There is no history of thyroid disease. The patient has residual left-sided weakness due to CVA that he sustained in the past and at that time he had dysphagia and, hence, he had a PEG tube placed and also has aphasia. He also has dementia. He has no history of GI bleed. He has a history of glaucoma. He also has a history of coronary artery disease as mentioned earlier. It is not possible to know whether the patient has anginal symptoms or not. He has a history of cardiomyopathy with LV ejection fraction of 35% but at present the patient seems to be compensated and tolerating the IV fluids without any problems. He has an AICD and it is not able to obtain from the patient whether this has fired. ALLERGIES: No known allergies. FAMILY HISTORY: Not obtainable from the patient. PAST SURGICAL HISTORY: AICD placement, orthopedic surgery, cardiac catheterization, left BKA, history of coronary stent, history of vascular surgery left groin. MEDICATIONS: 1. Tylenol 650 mg rectally q.4 h. p.r.n. 2. Aspirin 81 mg via PEG tube daily. 3. Atorvastatin 10 mg via PEG tube at bedtime. 4. Cefepime 2 gm IV x1 and 1 gm IV daily. 5. Plavix 75 mg via PEG tube daily. 6. Dextrose hypoglycemic precautions with glucose 40% gel 15 gm and 30 gm respectively p.o. p.r.n. hypoglycemia. 7. Dextrose 50% 12.5 gm IV and 25 gm IV p.r.n. hypoglycemia. 8. Metronidazole 500 mg x1 IV piggyback. 9. Heparin 5000 units subcutaneously q.4 h. 10. Lisinopril 40 mcg/min. 11. Norepinephrine 12 mcg/min. 12. Normal saline bolus x2; he is getting IVs at 250 mL/hr per L and then 150 mL. 13. Accu-Chek before meals t.i.d. and at bedtime with sliding scale regular insulin. 14. Ipratropium albuterol nebulizer treatment q.6 h. 15. Levaquin 750 mg IV piggyback x1. 16. Lactulose 10 mg via PEG tube t.i.d. 17. Xalatan 1 drop right eye at bedtime. 18. Fleet mineral oil at 133 mL rectally q.12 h. 19. Zofran 4 mg IV q.8 h. p.r.n. 20. Vancomycin 1500 mg IV piggyback x1 and 1000 mg IV at bedtime. REVIEW OF SYSTEMS: Not obtainable. DISPOSITION: The patient is a FULL CODE. His daughter is his surrogate healthcare decision maker. SOCIAL HISTORY: As per records of this hospital admission, the patient has no history of tobacco use. He is a nonsmoker. PHYSICAL EXAMINATION: GENERAL: Patient appears to be comfortable but is confused and aphasic. VITAL SIGNS: His temperature is 37 degrees Celsius. His pulse is 109 beats per minute. Blood pressure is 116/47. Respirations are 18 per minute. O2 sats are 100% on room air. Note that the patient is on Levophed 12 mcg/min and Jaycob-Synephrine at 40 mcg/min. HEENT: Head is atraumatic, normocephalic. Eyes: Pupils are equal, round, regular, reactive to light and accommodation. Extraocular movements are normal. There is no conjunctival pallor. There is no scleral icterus. Ears: Tympanic membranes are intact. External auditory canals are clear. Nose: There is no deviated nasal septum. There is no inflammation of the nasal mucous membranes. Mouth: Mucous membranes of the mouth are dry. Tongue is dry. Throat: There is no redness of the oropharynx. There is no exudate. SKIN: There are no skin rashes. There is no petechia or ecchymosis. There are no skin lesions. NECK: Supple. There is no JVD. Carotids are equal. There is no bruit. There is no lymphadenopathy. Trachea is central. LUNGS: Show dry crackles at the left base in the left lower lung. The rest of the lungs appear to be clear. There are no rales of CHF. There is no rhonchi or wheezing. HEART: S1 and S2 are heard. There is no S3 gallop. There is no S4 gallop. There is a systolic murmur in the left sternal border and the apex. There is no rub. ABDOMEN: Soft with a PEG tube in situ. There is no hepatosplenomegaly. Bowel sounds are well heard. EXTREMITIES: Scar of surgery in the left groin (vascular surgery groin). Femorals are very much difficult to palpate. There is left BKA. There is no pedal edema. The leg pulses are diminished. Femorals are diminished. There are no femoral bruits. There is no cyanosis or clubbing. CENTRAL NERVOUS SYSTEM: The patient is conscious, awake but confused and aphasic. He has mild left-sided weakness. PSYCHIATRIC: The patient does not appear to be agitated or depressed. DIAGNOSTIC TEST RESULTS: The patient's chest x-ray shows left lower lobe pneumonia and presence of AICD. The patient's EKG done this morning shows sinus rhythm, multiple PVCs and APCs, first-degree AV block, nonspecific IVCD, old inferior OR, ST-depression and t inversion in the lateral leads and also leads V3 and V4 consistent with ischemia. The patient's 24-hr intake is 4427 mL, output is 210 mL. The patient's white count is 22,500, hemoglobin is 9.6, hematocrit is 31.3, platelet count is 151,000. The patient's sodium is 145.1, potassium 4.3, chloride 105, CO2 25, BUN 88, creatinine 2.49, GFR has come down to 25 which is stage 4 kidney disease and seems to be acute renal failure. The patient's GFR in the past has been within normal limits. Lactic acid is 7, the patient's glucose is 243, the patient's INR is less than 10.1, TIBC is 211, his B12 is greater than 1000, folate is greater than 20. The patient's CPK and CPK-MB are negative. His troponin I is 1.08. His ABG showed a venous pH of 7.38, venous PCO2 is 43.6, and HCO3 on the venous gas is 25.4. IMPRESSION: 1. Non-ST elevation OR. 2. Septic shock. 3. Acute renal failure secondary to dehydration, septic shock and sepsis and infection. 4. Left lower lobe pneumonia. 5. Old CVA with left-sided weakness, dysphagia and aphasia. 6. History of PEG tube in situ due to dysphagia. 7. Coronary artery disease. At present there is evidence of non-ST elevation OR with abnormal EKG. 8. Abnormal EKG. 9. History of OR by stress testing in the past. 10. Cardiomyopathy with LV ejection fraction of 35%, 09/26. 11. History of hypertension. At present the patient is hypotensive requiring pressors. 12. Diabetes mellitus noninsulin type 2. 13. Hyperlipidemia. 14. Valvular heart disease with a history of left BKA. 15. AICD placement/automatic implantable cardioverter/defibrillator. 16. Elevated troponin I. RECOMMENDATIONS: At present once the central line is placed, would recommend that the patient be started on heparin. We cannot start the patient on nitrates or beta-blockers in view of the patient requiring pressors to keep his blood pressure up and also would start the patient on vasopressin at 0.02 u/min and increase to 0.03 and with the cover of vasopressin, try to get weaned and shut off the Levophed first and then subsequently the Jaycob-Synephrine. Continue antibiotics. Continue IV fluids but would watch the patient for developing heart failure. Would check an echo in the a.m. Note, the patient was seen around 11 a.m., 50 minutes spent of critical care time with more than 50% of the time spent on direct patient care. His medications were reviewed and his pressor agents were adjusted and vasopressin was added. Also have reviewed his old records from this admission and the records from prior admissions here in this hospital and also his records from [facility] including his cath report. Note, this case involved highly complex medical decision making in view of the patient's non-ST elevation OR, hypotension, septic shock and acute renal failure. The patient was seen from 11 a.m. to 11:50 a.m. Will follow with you. Thanking you. DICTATING PHYSICIAN: SARY KENNEDY M.D. [id number] PHY#: [id number] ID: [id number] JOB#: [id number] ACCT: [id number] cc:SARY KENNEDY M.D. >
[2017-01-04] MEDS: ATORVASTATIN CALCIUM 10 MG TABLET PEG SCH (21:45)
[2017-01-04] MEDS: LATANOPROST 0.005% OPH SOLN 2.5 ML OD SCH (21:46)
[2017-01-04] MEDS: VANCOMYCIN HCL 1,000 MG in DEXTROSE 5%-WATER 250 ML IV SCH (21:47)
[2017-01-04] MEDS ORDERED: LATANOPROST 0.005% OPH SOLN 2.5 ML OD SCH (22:00)
[2017-01-04] MEDS ORDERED: TRAVOPROST OD SCH (22:00)
[2017-01-05] MEDS: NORMAL SALINE 1000 ML 1,000 ML IV PRN ×4 (01:14→21:40)
[2017-01-05] MEDS: IPRATROPIUM/ALBUTEROL 0.5-2.5 MG/3 ML AMPUL NEB SCH ×4 (01:26→20:55)
[2017-01-05] MEDS: HEPARIN SOD (PORCINE) 5,000 UNIT/ML 1 ML SYRINGE SUBCUT SCH ×3 (05:49→21:51)
[2017-01-05 06:24] LABS: HEMATOCRIT 25.5 % (37.9-51.0); HEMOGLOBIN 8.1 g/dL (13.5-17.0); HGB HCT DIFFERENCE -1.2; MEAN CORPUSCULAR HEMOGLOBIN 24.7 pg (27.0-33.4); MEAN CORPUSCULAR HGB CONC 31.6 g/dL (32.0-36.0); MEAN CORPUSCULAR VOLUME 78 fl (80-97); RED BLOOD COUNT 3.27 10^6/uL (4.35-5.55); RED CELL DISTRIBUTION WIDTH 17.6 % (11.5-14.0); WHITE BLOOD COUNT 14.2 10^3/uL (4.0-10.5)
[2017-01-05 06:25] LABS: ALANINE AMINOTRANSFERASE 83 U/L (21-72); ALBUMIN 2.3 g/dL (3.5-5.0); ALKALINE PHOSPHATASE 63 U/L (38-126); ANION GAP 8 (5-19); ASPARTATE AMINO TRANSFERASE 72 U/L (17-59); BILIRUBIN,DIRECT 0.4 mg/dL (0.0-0.4); BILIRUBIN,TOTAL 0.5 mg/dL (0.2-1.3); CARBON DIOXIDE 27 mmol/L (22-30); CHLORIDE 112 mmol/L (98-107); CREATININE RESULT 1.45 mg/dL (0.52-1.25); GLUCOSE 218 mg/dL (75-110); POTASSIUM 3.4 mmol/L (3.6-5.0); TOTAL PROTEIN 5.6 g/dL (6.3-8.2)
[2017-01-05 06:32] LABS: PREALBUMIN 6.4 mg/dL (17.6-36.0)
[2017-01-05 06:44] LABS: BAND NEUTROPHILS % (MANUAL) 9 % (3-5); BASOPHILS % (MANUAL) 0 % (0-2); EOSINOPHILS % (MANUAL) 0 % (0-6); LYMPHOCYTES % (MANUAL) 3 % (13-45); TOTAL CELLS COUNTED 100
[2017-01-05 06:45] LABS: ANISOCYTOSIS 1+; BLOOD UREA NITROGEN 68 mg/dL (7-20); HYPOCHROMASIA 1+; MICROCYTOSIS SLIGHT; OVALOCYTES SLIGHT; POLYCHROMASIA SLIGHT; TARGET CELLS SLIGHT; TOXIC GRANULATION 1+
[2017-01-05 06:46] LABS: POIKILOCYTOSIS SLIGHT
[2017-01-05] MEDS ORDERED: POTASSIUM CHLORIDE 20 MEQ/15 ML UDCUP PEG ONE (08:30)
--- NOTE | 2017-01-05 08:38 | RADIOLOGY REPORT (SQ) ---
EXAM DESCRIPTION: CHEST SINGLE VIEW COMPLETED DATE/TIME: 01/05/2017 8:30 am REASON FOR STUDY: sepsis COMPARISON: 01/04/2017 NUMBER OF VIEWS: One view. TECHNIQUE: Single frontal radiographic image of the chest acquired. LIMITATIONS: None. FINDINGS: LUNGS AND PLEURA: Stable appearance. MEDIASTINUM AND HILAR STRUCTURES: Stable heart size and mediastinal structures. HEART AND VASCULAR STRUCTURES: Stable appearance. BONES: No acute findings. HARDWARE: Unchanged. OTHER: No other significant finding. IMPRESSION: STABLE APPEARANCE OF THE CHEST. TECHNICAL DOCUMENTATION: JOB ID: [id number] [employer]- All Rights Reserved
[2017-01-05 09:20] LABS: PROTHROMBIN TIME 19.3 SEC (11.4-15.4)
[2017-01-05 09:21] LABS: FIBRINOGEN 579 mg/dL (209-497)
[2017-01-05] MEDS: CLOPIDOGREL BISULFATE 75 MG TABLET PEG SCH (11:22)
[2017-01-05] MEDS: MULTIVITS W-MIN/IRON SOLN 60 ML PEG SCH (11:22)
[2017-01-05] MEDS: ASPIRIN 81 MG TABLET, CHEWABLE PEG SCH (11:22)
[2017-01-05] MEDS: FOLIC ACID 1 MG TABLET PEG SCH (11:23)
[2017-01-05] MEDS: FAMOTIDINE INJ/PF 20 MG/2 ML SDV IV SCH ×2 (11:23→21:24)
[2017-01-05] MEDS: CEFEPIME HCL 1 GM in DEXTROSE 5%-WATER 50 ML IV SCH (11:23)
--- NOTE | 2017-01-05 13:33 | RADIOLOGY REPORT (SQ) ---
EXAM DESCRIPTION: VENOUS UNILATERAL UPPER COMPLETED DATE/TIME: 01/05/2017 1:16 pm REASON FOR STUDY: RUE swelling and palpable cord COMPARISON: None. TECHNIQUE: Dynamic and static tanner scale and color images acquired of the left arm venous system. Se lected spectral images acquired with additional compression and augmentation maneuvers. The contralat eral subclavian vein and internal jugular vein were also imaged. Images stored on PACS. LIMITATIONS: None. FINDINGS: Left INTERNAL JUGULAR VEIN: Normal phasicity, compression, augmentation. No visualized echogenic material on tanner scale. No defects on color images. Comparison opposite side normal. SUBCLAVIAN VEIN: Normal compression, augmentation. No visualized echogenic material on tanner scale. No defects on color images. AXILLARY VEIN: Normal compression, augmentation. No visualized echogenic material on tanner scale. No d efects on color images. BRACHIAL VEIN: Normal compression, augmentation. No visualized echogenic material on tanner scale. No d efects on color images. BASILIC VEIN: Normal compression, augmentation. No visualized echogenic material on tanner scale. No de fects on color images. CEPHALIC VEIN: Normal compression, augmentation. No visualized echogenic material on tanner scale. No d efects on color images. OTHER: No other significant finding. Right INTERNAL JUGULAR VEIN: Not evaluated, patient has a central venous catheter in the right jugular vein IMPRESSION: NO EVIDENCE DVT OR SVT LEFT ARM. TECHNICAL DOCUMENTATION: JOB ID: [id number] [employer]- All Rights Reserved
--- NOTE | 2017-01-05 14:11 | XCELERA REPORT ---
[address] [address] Transthoracic Echocardiogram Report Name: SEUN TOTH Age: 76 yrs Gender: Male : 1940 Patient Status: Inpatient Patient Location: ICU\S\610\S\A Study Date: 01/05/2017 09:37 AM Height: 72 in Weight: 187 lb BSA: 2.1 m2 Procedure: A two-dimensional transthoracic echocardiogram with color flow and Doppler was performed. Study Quality: Fair. Reason For Study: septic shock / cardiomyopathy History: septic shock / cardiomyopathy. Ordering Physician: TIKA KENNEDY Performed By: Puja Anglin Interpretation Summary The left ventricle is moderately dilated. LV EF is 40% Left ventricular systolic function is mild to moderately reduced. Doppler measurements suggest normal left ventricular diastolic function Inerior wal is severly hypokinetic with basal inferior wall shows akinesia..Rest of LV stephens show mild to moderate hypokiinesis. There is no thrombus. The right ventricle is grossly normal size. The right ventricle is not well visualized secondary to technical limitations There is a pacemaker lead in the right ventricle. The left atrium is mildly dilated. The interatrial septum is intact with no evidence for an atrial septal defect. There is no mitral valve stenosis. There is no evidence of mitral valve prolapse. There is no vegetation seen on the mitral valve. There is a mild to moderate amount of mitral regurgitation There is mild aortic stenosis There is a peak gradient of 20 mm of Hg. There is no LVOT obstruction. There is a mild amount of aortic regurgitation There is no tricuspid stenosis. There is a mild amount of tricuspid regurgitation There is mild pulmonary hypertension by echo There is a trace amount of pulmonic regurgitation There is no pericardial effusion. MMode/2D Measurements \T\ Calculations RVDd: 3.9 cm LVIDd: 6.0 cm FS: 21.9 % Ao root diam: IVSd: 1.1 cm LVIDs: 4.7 cm EDV(Teich): 2.7 cm LVPWd: 0.96 cm 182.0 ml Ao root area: ESV(Teich): 102.9 ml 5.7 cm2 EF(Teich): 43.5 % LA dimension: 4.5 cm LVOT diam: LVLd ap4: 8.8 cm SV(MOD-sp4): 2.4 cm EDV(MOD-sp4): 55.0 ml LVOT area: 151.0 ml LVLs ap4: 8.4 cm 4.5 cm2 ESV(MOD-sp4): 96.0 ml EF(MOD-sp4): 36.4 % Doppler Measurements \T\ Calculations MV E max janice: MV P1/2t max janice: Ao V2 max: AI max janice: 121.4 cm/sec 121.9 cm/sec 221.1 cm/sec 323.6 cm/sec MV A max janice: MV P1/2t: 53.6 msec Ao max PG: AI max P.6 cm/sec MVA(P1/2t): 4.1 cm2 19.6 mmHg 41.9 mmHg MV E/A: 1.8 MV dec slope: Ao V2 mean: AI dec slope: 665.9 cm/sec2 141.9 cm/sec 214.9 cm/sec2 MV dec time: Ao mean PG: AI P1/2t: 0.15 sec 9.5 mmHg 440.9 msec Ao V2 VTI: 46.3 cm GLORIA(I,D): 1.8 cm2 GLORIA(V,D): 1.9 cm2 LV V1 max PG: SV(LVOT): 81.3 ml PA V2 max: PI end-d janice: 3.6 mmHg 77.0 cm/sec 202.0 cm/sec LV V1 mean PG: PA max P.7 mmHg 2.4 mmHg LV V1 max: 94.3 cm/sec LV V1 mean: 59.2 cm/sec LV V1 VTI: 18.1 cm TR max janice: 301.9 cm/sec TR max P.5 mmHg Left Ventricle The left ventricle is moderately dilated. LV EF is 40%. Left ventricular systolic function is mild to moderately reduced. Doppler measurements suggest normal left ventricular diastolic function. Inerior wal is severly hypokinetic with basal inferior wall shows akinesia..Rest of LV stephens show mild to moderate hypokiinesis. There is no thrombus. There is no ventricular septal defect visualized. Right Ventricle The right ventricle is grossly normal size. The right ventricle is not well visualized secondary to technical limitations. There is a pacemaker lead in the right ventricle. Atria The right atrium is mildly dilated. The left atrium is mildly dilated. The interatrial septum is intact with no evidence for an atrial septal defect. Mitral Valve There is no evidence of mitral valve prolapse. There is no vegetation seen on the mitral valve. There is no mitral valve stenosis. There is a mild to moderate amount of mitral regurgitation. Aortic Valve The aortic valve is trileaflet. There is no aortic valvular vegetation. There is mild aortic stenosis. There is a peak gradient of 20 mm of Hg. There is no LVOT obstruction. There is a mild amount of aortic regurgitation. Tricuspid Valve There is no tricuspid stenosis. There is a mild amount of tricuspid regurgitation. There is mild pulmonary hypertension by echo. Pulmonic Valve There is no pulmonic valvular stenosis. There is a trace amount of pulmonic regurgitation. Great Vessels The aortic root is normal size. Effusions There is no pericardial effusion. : TIKA KENNEDY > Tika Kennedy
[2017-01-05] MEDS: MORPHINE SULFATE 10 MG/ML INJ IV PRN ×2 (15:20→22:44)
[2017-01-05] MEDS: SILVER SULFADIAZINE 1% CREAM 25 GM TP SCH (15:22)
[2017-01-05] MEDS ORDERED: PHYTONADIONE INJ 10 MG/1 ML AMPULE SUBCUT ONE (18:00)
--- NOTE | 2017-01-05 19:25 | PDOC PROGRESS REPORT ---
Subjective Progress Note for:: 01/05/17 Subjective:: Patient seen earlier today on morning rounds. Patient left arm developed swelling and blistering in the antecubital space overnight. Denies chest pain, shortness of breath, nausea, vomiting. Patient has had resolution of his constipation. Physical Exam Vital Signs: Temp Pulse Resp BP Pulse Ox 99.5 F 99 15 113/51 L 100 01/04/17 04:36 01/05/17 14:18 01/05/17 14:21 01/05/17 14:21 01/05/17 14:21 Intake & Output 01/04/17 01/05/17 01/06/17 06:59 06:59 06:59 Intake Total 4422 6377 Output Total 210 4030 925 Balance 4212 2347 -925 Weight 85.1 kg 86.3 kg Exam: GENERAL: [place], oriented to person and place, ill-appearing HEENT: PERRL, dry mucosa, no JVD, midline trachea RESPIRATORY: CTAB CARDIAC: Regular rate and rhythm, no gallops/rubs; +SM RUSB ABDOMEN: Soft, nondistended, slightly tender to palpation, active bowel sounds, no rebound, no guarding EXTREMETIES: No edema, cyanosis, clubbing, left BKA, right great toe amputation NEUROLOGIC: oriented to person/place, left facial droop, dysarthria, left hemiparesis PSYCH: Normal mood, normal affect SKIN: 1 Centimeter stage II right hip decubitus ulcer : Inferior healed meatal tear extending up glands to approximately 3 cm of shaft Results Laboratory Results: 01/05/17 05:45 01/05/17 05:45 01/05/17 01/05/17 05:45 05:45 WBC 14.2 H RBC 3.27 L Hgb 8.1 L Hct 25.5 L MCV 78 L MCH 24.7 L MCHC 31.6 L RDW 17.6 H Plt Count 102 L Seg Neutrophils % Not Reportable Lymphocytes % Not Reportable Monocytes % Not Reportable Eosinophils % Not Reportable Basophils % Not Reportable Absolute Neutrophils Not Reportable Absolute Lymphocytes Not Reportable Absolute Monocytes Not Reportable Absolute Eosinophils Not Reportable Absolute Basophils Not Reportable Sodium 147.0 H Potassium 3.4 L Chloride 112 H Carbon Dioxide 27 Anion Gap 8 BUN 68 H D Creatinine 1.45 H Est GFR ( Amer) 57 L Est GFR (Non-Af Amer) 47 L Glucose 218 H Calcium 8.0 L Total Bilirubin 0.5 AST 72 H ALT 83 H Alkaline Phosphatase 63 Total Protein 5.6 L Albumin 2.3 L Prealbumin 6.4 L 01/04/17 01/04/17 01/04/17 06:39 06:39 12:00 Creatine Kinase 261 H 244 H CK-MB (CK-2) 3.50 Troponin I 1.080 01/04/17 01/05/17 12:30 11:10 Creatine Kinase CK-MB (CK-2) 3.79 Troponin I 0.905 0.731 Impressions: KUB X-Ray 01/04/17 00:00 IMPRESSION: NO RADIOGRAPHIC EVIDENCE FOR ACUTE ABDOMINAL DISEASE. Marked constipation. Suspect fecal impaction. Chest X-Ray 01/05/17 00:00 IMPRESSION: STABLE APPEARANCE OF THE CHEST. Venous Doppler Study 01/05/17 00:00 IMPRESSION: NO EVIDENCE DVT OR SVT LEFT ARM. Assessment & Plan - Diagnosis (1) Severe sepsis with septic shock Is this a current diagnosis for this admission?: YesPlan: Severe sepsis and septic shock secondary to complicated UTI and likely aspiration pneumonia. Maintain map greater than 65. CVP every 4 hours. Currently on vasopressin alone. Continue volume resuscitation, gently, given patient's underlying systolic heart failure. Currently on cefepime, vancomycin, and Levaquin. (2) UTI (urinary tract infection) due to urinary indwelling Catalan catheter Qualifiers: Indwelling urinary catheter type: indwelling urethral catheter Encounter type: initial encounter Qualified Code(s): T83.511A - Infection and inflammatory reaction due to indwelling urethral catheter, initial encounter; N39.0 - Urinary tract infection, site not specified Is this a current diagnosis for this admission?: YesPlan: Patient has a chronic indwelling Catalan catheter from the long term. Patient had significant purulent discharge on presentation. Previously grown E. coli, Proteus mirabilis. Current antibiotic coverage is sufficient. (3) Left lower lobe pneumonia Qualifiers: Pneumonia type: due to unspecified organism Qualified Code(s): J18.1 - Lobar pneumonia, unspecified organism Is this a current diagnosis for this admission?: YesPlan: Left lower lobe pneumonia secondary to aspiration. Concern for aspiration of fecal contents. Concern for gram-negative pneumonia in addition to healthcare associated pneumonia due to patient living in a nursing facility. Patient currently on vancomycin, cefepime, and Levaquin. Add guaifenesin. Scheduled nebulized treatments and attempt to obtain a sputum specimen. (4) ARF (acute renal failure) Qualifiers: Acute renal failure type: with acute tubular necrosis Qualified Code (s): N17.0 - Acute kidney failure with tubular necrosis Is this a current diagnosis for this admission?: YesPlan: Improving 2/2 to hypotension, sepsis, and dehydration. Continue rehydration. (5) Lactic acidosis Is this a current diagnosis for this admission?: Yes (6) NSTEMI (non-ST elevated myocardial infarction) Is this a current diagnosis for this admission?: YesPlan: Troponin of 1.8 and EKG changes segment depression in II, avL, V3,4, 5 and 6 with T-wave inversion. Patient has prior Q waves in 2 3 and aVF. Likely secondary to sepsis leading this is a type II non-STEMI. Appreciate cardiology for input. Have significant prior cardiac history including AICD. Concern for starting Heparin ggt as patient appears to be in early DIC (7) Chronic systolic (congestive) heart failure Is this a current diagnosis for this admission?: YesPlan: Performed on 01/03/2017 reveals a EF of 40% and grade 1/4 diastolic dysfunction. Judicious with fluid administration and check CVP. (8) Laceration of penis Qualifiers: Encounter type: subsequent encounter Qualified Code(s): S31.21XD - Laceration without foreign body of penis, subsequent encounter Is this a current diagnosis for this admission?: Yes (9) Diabetes Qualifiers: Diabetes mellitus type: type 2 Diabetes mellitus complication status: with circulatory complication Diabetes mellitus complication detail: with other circulatory complications Diabetes mellitus manager long term care insulin use: without manager long term care use Qualified Code(s): E11.59 - Type 2 diabetes mellitus with other circulatory complications Is this a current diagnosis for this admission?: Yes (10) Dyslipidemia Is this a current diagnosis for this admission?: Yes (11) CAD (coronary artery disease) Qualifiers: Coronary Disease-Associated Artery/Lesion type: cahto artery [place] vs. transplanted heart: cahto heart Associated angina: without angina Qualified Code(s): I25.10 - Atherosclerotic heart disease of cahto coronary artery without angina pectoris Is this a current diagnosis for this admission?: Yes (12) History of cerebrovascular accident with residual deficit Is this a current diagnosis for this admission?: Yes (13) Protein-calorie malnutrition, moderate Is this a current diagnosis for this admission?: Yes (14) Anemia Qualifiers: Anemia type: unspecified type Qualified Code(s): D64.9 - Anemia, unspecified Is this a current diagnosis for this admission?: Yes (15) Fecal impaction Is this a current diagnosis for this admission?: Yes (16) DVT prophylaxis Is this a current diagnosis for this admission?: Yes (17) GI Prophylaxis Is this a current diagnosis for this admission?: Yes (18) Full code status Is this a current diagnosis for this admission?: Yes - Time Critical Time spent with patient: 35 or more minutes Medications reviewed and adjusted accordingly: Yes
[2017-01-05] MEDS: ATORVASTATIN CALCIUM 10 MG TABLET PEG SCH (21:23)
[2017-01-05] MEDS: VANCOMYCIN HCL 1,000 MG in DEXTROSE 5%-WATER 250 ML IV SCH (21:28)
[2017-01-05] MEDS ORDERED: POTASSI CL 20 MEQ/50 ML RIDER 20 MEQ/50 ML RTUPB IV ONE ×2 (21:35→22:39)
[2017-01-05] MEDS: LATANOPROST 0.005% OPH SOLN 2.5 ML OD SCH (21:55)
[2017-01-05] MEDS: POTASSIUM CHLORIDE 20 MEQ/50 ML RTU IV SCH ×2 (22:43→23:40)
--- NOTE | 2017-01-05 22:43 | PROGRESS NOTE E ---
Progress Note NAME: SEUN TOTH : 1940 AGE: 76Y DATE: 01/05/2017 ROOM: [facility] SUBJECTIVE: Note that the patient appears to be in no acute distress. He continues to be in sinus rhythm. He is off the pressors, Levophed and Jaycob-Synephrine and is only vasopressin at 0.01 units/min. There is no ventricular arrhythmia seen. The patient is lying down flat without any evidence of orthopnea. There is no PND. The patient is aphasic and cannot give a history but appears to be comfortable. OBJECTIVE: GENERAL: Patient is in no acute distress. He is well built and seems to be well nourished. VITAL SIGNS: He has a low-grade temperature of 99.1 degrees Fahrenheit. His is 86 beats per minute. Blood pressure is 128/58. Respirations are 14 per minute. O2 sats are 100% on room air. HEENT: Head is atraumatic, normocephalic. Eyes: Pupils are equal, round, regular, reactive to light and accommodation. Extraocular movements are normal. There is no conjunctival pallor. There is no scleral icterus. ENT is negative. NECK: Supple. There is no JVD. Carotids are equal. There is no bruit. There is no lymphadenopathy. There is no goiter. LUNGS: Show a few dry crackles at the left base in the left lower lung. The rest of the lungs are clear. There are no rales of CHF. There is no rhonchi or wheezing. HEART: S1 and S2 are heard. There is no S3 gallop. There is no S4 gallop. There is a systolic murmur in the left sternal border and the apex. There is no rub. ABDOMEN: Soft with a PEG tube in situ. There is no hepatosplenomegaly. Bowel sounds are well heard. EXTREMITIES: Scar of surgery in the left groin (vascular surgery scar). Femorals are very much difficult to palpate. There is left BKA. There is no pedal edema. The leg pulses are diminished. Femorals are diminished. There are no femoral bruits. There is no cyanosis or clubbing. CENTRAL NERVOUS SYSTEM: The patient is conscious, awake but confused and aphasic. He has mild left-sided weakness. PSYCHIATRIC: The patient does not appear to be agitated or depressed. DIAGNOSTIC TEST RESULTS: The patient's 24-hr intake is 6375 mL, output is 4300 mL. The patient's venous Doppler study shows no evidence of DVT or SVT in the left arm. The patient's echocardiogram shows the left ventricle is moderately dilated. The left ventricular ejection fraction is reduced at 40%, which is mild to moderate reduction in systolic pressure. The inferior wall is severely hyperkinetic with basilar inferior wall shows akinesis. The rest of the LV wall shows mild to moderate hypokinesis. There is no thrombus. There is no ventricular septal defect noted. The right ventricle is grossly of normal size. The right ventricle is not well visualized. There is a pacemaker lead in the right ventricle. The right atrium is mildly dilated. The left atrium is mildly dilated and there is no intraatrial septal defect. There is no evidence of mitral valve prolapse. There is no vegetation seen on the mitral valve. There is mild to moderate amount of no aortic valve stenosis. The aortic valve is trileaflet. There is no aortic valve vegetation. There is mild aortic stenosis with a peak gradient of 20 mmHg. There is no LVOT obstruction. There is mild amount of aortic regurgitation. There is no tricuspid stenosis. There is mild amount of tricuspid regurgitation. There is mild pulmonary hypertension by echo. There is trace amount of pulmonary regurgitation, no pulmonic stenosis. There is no pericardial effusion seen. The patient's chest x-ray shows some improvement in left lower lobe pneumonia. The patient's white count is 14,200, hemoglobin is 8.1, hematocrit is 25.5, platelet count is 102,000. The patient's sodium is 147.0, potassium 3.4, chloride 112, CO2 27, BUN 68, creatinine 1.45, GFR is improved to 57 mL but still is stage 3 kidney disease and glucose is 202. The patient's calcium is 8.0. The liver function tests show an abnormal AST of 72, abnormal ALT of 83, and alkaline phosphatase of 63. His LDH is 153. Troponin I has trended down to 0.731. His prealbumin is 6.4, albumin is 2.3 and total protein is 5.6. The patient's *------* products are high at 1040; fibrinogen is high at 579, his PTT is 44 and his pro time is 19.3, INR is 1.52. IMPRESSION: 1. NON-ST ELEVATION [place]. 2. SEPTIC SHOCK. The patient is much improved. Patient is only on vasopressin at 0.01 u/min. Will try to wean this off and then start think about starting the patient on cardioprotective medication. 3. ACUTE RENAL FAILURE SECONDARY TO DEHYDRATION, SEPTIC SHOCK AND SEPSIS. Improving. 4. LEFT LOWER LOBE PNEUMONIA. 5. 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 6. HISTORY OF PEG TUBE IN SITU DUE TO DYSPHAGIA. 7. CORONARY ARTERY DISEASE. At present there is evidence of non-ST elevation [place] with abnormal EKG. 8. ABNORMAL EKG. 9. HISTORY OF [place] BY STRESS TESTING IN THE PAST. 10. CARDIOMYOPATHY WITH LV EJECTION FRACTION OF 40% BY RECENT ECHO. 11. HISTORY OF HYPERTENSION. At present the patient is on vasopressin for low blood pressure, but the blood pressure is coming up and the patient's pressors have been weaned off except for the vasopressin. 12. DIABETES MELLITUS NONINSULIN DEPENDENT TYPE 2. 13. HYPERLIPIDEMIA. 14. PERIPHERAL VASCULAR DISEASE WITH A HISTORY OF LEFT BKA. 15. AICD PLACEMENT/AUTOMATIC IMPLANTABLE CARDIOVERTER/DEFIBRILLATOR. No firing of this. 16. ELEVATED TROPONIN I WHICH IS TRENDING DOWN. RECOMMENDATIONS: Would recommend decreasing the patient's IV fluids in view of the patient's LV dysfunction. We will wean the patient off the vasopressin and then try to start the patient on a beta-malu or an DIANN inhibitor if the blood pressure permits and also put the patient on nitrates. TIME SPENT: Note, 35 minutes spent on this patient. This is a highly complex medical decision making case in view of the patient's blood pressure being low, the patient having non-ST elevation [place] and also appears to have renal problem and also with a picture of septic shock. The patient's heparin has not been started in view of the patient's platelets dropping. Discussion with attending physician. The patient is a FULL CODE and a cousin of the patient is the healthcare decision maker. The patient is unable to say who exactly is the healthcare [id number]. Note that more than 50% of the time spent on direct patient care and the patient's medications have been reviewed and adjusted. DICTATING PHYSICIAN: SARY KENNEDY M.D. [id number] PHY#: [id number] ID: [id number] JOB#: [id number] ACCT: [id number] cc: >
[2017-01-06] MEDS: IPRATROPIUM/ALBUTEROL 0.5-2.5 MG/3 ML AMPUL NEB SCH ×4 (01:55→20:16)
[2017-01-06 05:04] LABS: HEMATOCRIT 28.1 % (37.9-51.0); HEMOGLOBIN 8.8 g/dL (13.5-17.0); HGB HCT DIFFERENCE -1.7; MEAN CORPUSCULAR HEMOGLOBIN 24.3 pg (27.0-33.4); MEAN CORPUSCULAR HGB CONC 31.2 g/dL (32.0-36.0); MEAN CORPUSCULAR VOLUME 78 fl (80-97); RED BLOOD COUNT 3.61 10^6/uL (4.35-5.55); RED CELL DISTRIBUTION WIDTH 18.6 % (11.5-14.0)
[2017-01-06 05:07] LABS: BASOPHILS % (MANUAL) 0 % (0-2); EOSINOPHILS % (MANUAL) 3 % (0-6); LYMPHOCYTES % (MANUAL) 4 % (13-45); TOTAL CELLS COUNTED 100
[2017-01-06 05:10] LABS: ANION GAP 5 (5-19); BLOOD UREA NITROGEN 50 mg/dL (7-20); CARBON DIOXIDE 27 mmol/L (22-30); CHLORIDE 119 mmol/L (98-107); CREATININE RESULT 1.09 mg/dL (0.52-1.25); GLUCOSE 183 mg/dL (75-110); MAGNESIUM 2.5 mg/dL (1.6-2.3); PHOSPHORUS 1.9 mg/dL (2.5-4.5); POTASSIUM 3.8 mmol/L (3.6-5.0); SODIUM 150.7 mmol/L (137-145)
[2017-01-06 05:11] LABS: ANISOCYTOSIS 1+; HYPOCHROMASIA SLIGHT; MICROCYTOSIS SLIGHT; OVALOCYTES SLIGHT; POIKILOCYTOSIS SLIGHT
[2017-01-06] MEDS: HEPARIN SOD (PORCINE) 5,000 UNIT/ML 1 ML SYRINGE SUBCUT SCH ×3 (05:27→21:22)
[2017-01-06] MEDS ORDERED: POTASSI CL 20 MEQ/1/2NS 1L 20 MEQ/1,000 ML RTUINJ IV SCH (05:30)
[2017-01-06] MEDS ORDERED: IRON SUCROSE COMPLEX INJ/PF 100 MG/5 ML SDV IV ONE (08:44)
[2017-01-06] MEDS ORDERED: POTASSIUM PHOS,M-BASIC-D-BASIC 30 MMOL in NORMAL SALINE 500 ML IV ONE (09:30)
[2017-01-06] MEDS: FUROSEMIDE INJ/PF 20 MG/2 ML SDV IV SCH ×2 (09:54→21:09)
[2017-01-06] MEDS: POTASSI CL 20 MEQ/D5-1/2NS 1L 1,000 ML IV PRN ×2 (09:55→21:25)
[2017-01-06] MEDS: CLOPIDOGREL BISULFATE 75 MG TABLET PEG SCH (09:55)
[2017-01-06] MEDS: ASPIRIN 81 MG TABLET, CHEWABLE PEG SCH (09:55)
[2017-01-06] MEDS: FAMOTIDINE INJ/PF 20 MG/2 ML SDV IV SCH ×2 (09:55→21:08)
[2017-01-06] MEDS: FERROUS SULFATE LIQUID 300 MG/5 ML UDC PEG SCH ×2 (09:55→17:16)
[2017-01-06] MEDS: FOLIC ACID 1 MG TABLET PEG SCH (09:55)
[2017-01-06] MEDS: CEFEPIME HCL 1 GM in DEXTROSE 5%-WATER 50 ML IV SCH (09:57)
[2017-01-06] MEDS: MULTIVITS W-MIN/IRON SOLN 60 ML PEG SCH (09:57)
[2017-01-06] MEDS: MORPHINE SULFATE 10 MG/ML INJ IV PRN ×2 (10:01→15:33)
[2017-01-06] MEDS ORDERED: IRON SUCROSE COMPLEX 100 MG in NORMAL SALINE 100 ML IV ONE (11:00)
[2017-01-06] MEDS ORDERED: LOSARTAN POTASSIUM 25 MG TABLET PO ONE (11:00)
[2017-01-06] MEDS ORDERED: CARVEDILOL 3.125 MG TABLET PO ONE (11:00)
[2017-01-06] MEDS ORDERED: CARVEDILOL 3.125 MG TABLET PEG ONE (12:00)
--- NOTE | 2017-01-06 12:22 | PDOC CONSULTATION ---
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 He presents to the emergency room after the nursing facility finds pyuria from Catalan without urine output and hypotension. In the emergency room is found to have sepsis with hypotension tachycardia and fever, leukocytosis, acute renal failure Catalan catheter with obstruction from pyuria and left lower lobe pneumonia. He is unable to provide any history he is chronically ill-and toxic appearing with cachexia and temporal wasting is referred to the hospitalist for admission. On evaluation of the patient this a.m. he was found to have what appeared to be slough of the epidermis and superficial dermis left upper extremity volar aspect , just proximal to the elbow. States that this was a previous IV site which at the time of admission was using Levophed for blood pressure control in this hypotensive patient. Nursing states the patient was not complaining of any pain in the area. The changes were noted during routine examination of the patient this morning. Past Medical History Cardiac Medical History: Reports: Coronary Artery Disease - stent x 1, Myocardial Infarction - 2004, Hyperlipidema, Hypertension, Peripheral Vascular Disease Pulmonary Medical History: Reports: Asthma - as child Denies: Bronchitis, Chronic Obstructive Pulmonary Disease (COPD), Pneumonia, Tuberculosis Neurological Medical History: Denies: Seizures Endocrine Medical History: Reports: Diabetes Mellitus Type 2 GI Medical History: Denies: Hepatitis, Hiatal Hernia Musculoskeltal Medical History: Denies: Arthritis Psychiatric Medical History: Reports: Dementia Denies: Attention Deficit Hyperactivity Disorder, Bipolar Disorder, Depression, Personality Disorder, Schizoaffective Disorder Traumatic Medical History: Denies: Gunshot Wound, Pneumothorax, Traumatic Brain Injury Hematology: Denies: Anemia, Sickle Cell Disease Past Surgical History Past Surgical History: Reports: Internal Defibrillator, Orthopedic Surgery - left BKA, Vascular Surgery - left groin Social History Lives with: Custodial Smoking Status: Unknown if Ever Smoked Frequency of Alcohol Use: None Hx Recreational Drug Use: No Drugs: None Hx Prescription Drug Abuse: No - Advance Directive Resuscitation Status: Full Code Family History Family History: None, Reviewed & Not Pertinent, Other - Unobtainable Parental Family History Reviewed: No Children Family History Reviewed: No Sibling(s) Family History Reviewed.: No Medication/Allergy Home Medications: Acetaminophen [Tylenol 325 mg Tablet] 650 mg PEG Q6HP PRN 01/04/17 Aspirin [Aspirin 81 mg Chewable Tablet] 81 mg PEG DAILY 01/04/17 Atorvastatin Calcium [Lipitor 10 mg Tablet] 10 mg PEG DAILY 01/04/17 Carvedilol [Coreg 3.125 mg Tablet] 3.125 mg PEG Q12 01/04/17 Clopidogrel Bisulfate [Clopidogrel] 75 mg PEG DAILY 01/04/17 Doxazosin Mesylate [Cardura 2 mg Tablet] 2 mg PEG DAILY 01/04/17 Finasteride [Proscar 5 mg Tablet] 5 mg PEG DAILY 01/04/17 Folic Acid 1 mg PEG DAILY 01/04/17 Latanoprost [Xalatan 0.005% Oph Soln 2.5 ml] 1 drop OD QHS 01/04/17 Lisinopril 5 mg PEG DAILY 01/04/17 Metformin HCl [Glucophage] 500 mg PEG BID 01/04/17 Multivits W-Min/Ferrous Gluc [Centrum Multivit-Mineral Liq] 9 mg PEG DAILY 01/04 Travoprost (Benzalkonium) [Travatan 0.004% Eye Drop] 5 ml OD QHS 01/04/17 Allergies/Adverse Reactions: No Known Allergies Allergy (Verified 09/20/16 21:14) Review of Systems ROS unobtainable: Other - Positive for expressive aphasia secondary to right CVA Physical Exam Vital Signs: Temp Pulse Resp BP Pulse Ox 97.3 F 103 H 17 144/71 H 97 01/06/17 08:00 01/06/17 10:00 01/06/17 10:00 01/06/17 10:00 01/06/17 10:00 Intake & Output 01/05/17 01/06/17 01/07/17 06:59 06:59 06:59 Intake Total 6303 3595 Output Total 4030 2850 275 Balance 2347 745 -275 Weight 86.3 kg 85.3 kg General appearance: PRESENT: cooperative, other - Unable to understand patient because of expressive aphasia Head exam: PRESENT: atraumatic, normocephalic Eye exam: PRESENT: conjunctiva pink, EOMI - Clear to auscultation bilaterally no rales, wheezing, rhonchi, PERRLA Respiratory exam: PRESENT: other - Auscultation bilaterally no rales, wheezing, rhonchi. Cardiovascular exam: PRESENT: systolic murmur, other - Regular rate and rhythm, positive S1-S2, negative S 3 S4, Pulses: PRESENT: normal carotid pulses, normal radial pulses Vascular exam: PRESENT: normal capillary refill, other - Capillary refill checked in the upper extremities bilaterally noting left upper extremity distal to the site of skin slough there is a pulse oximeter on the patient's finger which is working without difficulty GI/Abdominal exam: PRESENT: normal bowel sounds, soft Rectal exam: PRESENT: deferred Extremities exam: PRESENT: other - There is mild edema noted in the left forearm in the area of the olecranon and antecubital fossa volar aspect. There is a 10 cm by 4 cm skin slough of the epidermis and possibly the superficial dermis in this area. No evidence of necrosis of the surrounding skin or the deep dermis in this area. Capillary refill is less than 3 seconds. There is minimal pain on palpation. Musculoskeletal exam: PRESENT: tenderness, other - The mild tenderness in the antecubital fossa, volar aspect, medial forearm distal to the antecubital fossa left upper extremity Neurological exam: PRESENT: alert, awake, CN II-XII grossly intact, aphasic Psychiatric exam: PRESENT: agitated, appropriate affect Focused psych exam: PRESENT: restlessness Skin exam: PRESENT: other - See above description in the extremity portion of the physical exam Results Laboratory Results: 01/06/17 04:10 01/06/17 04:45 01/04/17 01/06/17 01/06/17 12:00 04:10 04:45 WBC 12.0 H RBC 3.61 L Hgb 8.8 L Hct 28.1 L MCV 78 L MCH 24.3 L MCHC 31.2 L RDW 18.6 H Plt Count 116 L Seg Neutrophils % Not Reportable Lymphocytes % Not Reportable Monocytes % Not Reportable Eosinophils % Not Reportable Basophils % Not Reportable Absolute Neutrophils Not Reportable Absolute Lymphocytes Not Reportable Absolute Monocytes Not Reportable Absolute Eosinophils Not Reportable Absolute Basophils Not Reportable Sodium 150.7 H Potassium 3.8 Chloride 119 H Carbon Dioxide 27 Anion Gap 5 BUN 50 H Creatinine 1.09 Est GFR ( Amer) > 60 Est GFR (Non-Af Amer) > 60 Glucose 183 H Calcium 8.0 L Phosphorus 1.9 L Magnesium 2.5 H Transferrin 147 L 01/04/17 01/04/17 01/04/17 06:39 06:39 12:00 Creatine Kinase 261 H 244 H CK-MB (CK-2) 3.50 Troponin I 1.080 01/04/17 01/05/17 12:30 11:10 Creatine Kinase CK-MB (CK-2) 3.79 Troponin I 0.905 0.731 Impressions: KUB X-Ray 01/04/17 00:00 IMPRESSION: NO RADIOGRAPHIC EVIDENCE FOR ACUTE ABDOMINAL DISEASE. Marked constipation. Suspect fecal impaction. Chest X-Ray 01/05/17 00:00 IMPRESSION: STABLE APPEARANCE OF THE CHEST. Venous Doppler Study 01/05/17 00:00 IMPRESSION: NO EVIDENCE DVT OR SVT LEFT ARM. Assessment & Plan - Diagnosis (1) Extravasation injury of intravenous catheter site with skin sloughing Is this a current diagnosis for this admission?: YesPlan: 1. Would continue to monitor the skin along the area of extravasation for any signs of extension of the skin necrosis. 2. Agree with the use of Silvadene over the wound but would change to Adaptic nonstick dressing over the Silvadene followed by bulky Kerlix dressing. 3. Would continue to elevate the left upper extremity - Time Time Spent: 30 to 50 Minutes Medications reviewed and adjusted accordingly: Yes
[2017-01-06] MEDS: SILVER SULFADIAZINE 1% CREAM 25 GM TP SCH (15:28)
--- NOTE | 2017-01-06 16:02 | PDOC PROGRESS REPORT ---
Subjective Progress Note for:: 01/06/17 Subjective:: Patient seen earlier today on morning rounds. Patient complains of left arm pain. Patient admits to shortness of breath. Denies chest pain, nausea, vomiting. Physical Exam Vital Signs: Temp Pulse Resp BP Pulse Ox 97.3 F 89 13 108/57 L 99 01/06/17 08:00 01/06/17 09:18 01/06/17 09:18 01/06/17 05:46 01/06/17 09:18 Intake & Output 01/05/17 01/06/17 01/07/17 06:59 06:59 06:59 Intake Total 6377 3595 Output Total 4030 2850 Balance 2347 745 Weight 86.3 kg 85.3 kg Exam: GENERAL: NAD, oriented to person and place, HEENT: PERRL,moist mucosa, no JVD, midline trachea RESPIRATORY: Rales bilaterally CARDIAC: Regular rate and rhythm, no gallops/rubs; +SM RUSB ABDOMEN: Soft, nondistended, NTTP, active bowel sounds, no rebound, no guarding EXTREMETIES: No edema, cyanosis, clubbing, left BKA, right great toe amputation NEUROLOGIC: oriented to person/place, left facial droop, dysarthria, left hemiparesis PSYCH: Normal mood, normal affect SKIN: 1 Centimeter stage II right hip decubitus ulcer, denuded area left medial forearm with pink tissue and surrounding discoloration : Inferior healed meatal tear extending up glans to approximately 3 cm of shaft Results Laboratory Results: 01/06/17 04:10 01/06/17 04:45 01/04/17 01/06/17 01/06/17 12:00 04:10 04:45 WBC 12.0 H RBC 3.61 L Hgb 8.8 L Hct 28.1 L MCV 78 L MCH 24.3 L MCHC 31.2 L RDW 18.6 H Plt Count 116 L Seg Neutrophils % Not Reportable Lymphocytes % Not Reportable Monocytes % Not Reportable Eosinophils % Not Reportable Basophils % Not Reportable Absolute Neutrophils Not Reportable Absolute Lymphocytes Not Reportable Absolute Monocytes Not Reportable Absolute Eosinophils Not Reportable Absolute Basophils Not Reportable Sodium 150.7 H Potassium 3.8 Chloride 119 H Carbon Dioxide 27 Anion Gap 5 BUN 50 H Creatinine 1.09 Est GFR ( Amer) > 60 Est GFR (Non-Af Amer) > 60 Glucose 183 H Calcium 8.0 L Phosphorus 1.9 L Magnesium 2.5 H Transferrin 147 L 01/04/17 01/04/17 01/04/17 06:39 06:39 12:00 Creatine Kinase 261 H 244 H CK-MB (CK-2) 3.50 Troponin I 1.080 01/04/17 01/05/17 12:30 11:10 Creatine Kinase CK-MB (CK-2) 3.79 Troponin I 0.905 0.731 Impressions: KUB X-Ray 01/04/17 00:00 IMPRESSION: NO RADIOGRAPHIC EVIDENCE FOR ACUTE ABDOMINAL DISEASE. Marked constipation. Suspect fecal impaction. Chest X-Ray 01/05/17 00:00 IMPRESSION: STABLE APPEARANCE OF THE CHEST. Venous Doppler Study 01/05/17 00:00 IMPRESSION: NO EVIDENCE DVT OR SVT LEFT ARM. Assessment & Plan - Diagnosis (1) Severe sepsis with septic shock Is this a current diagnosis for this admission?: YesPlan: Severe sepsis and septic shock secondary to complicated UTI and likely aspiration pneumonia. Maintain map greater than 65. CVP every 4 hours. Patient is off vasopressin. Currently on cefepime, vancomycin, and Levaquin. Stop vancomycin. Patient also appeared to have mild DIC. (2) Acute on chronic combined systolic (congestive) and diastolic (congestive) heart failure Is this a current diagnosis for this admission?: YesPlan: IV fluids and initiate patient on Lasix. This is likely secondary to iatrogenic volume overload due to increased need from septic shock. Re-add Patient's heart failure medications as tolerated. (3) UTI (urinary tract infection) due to urinary indwelling Catalan catheter Qualifiers: Indwelling urinary catheter type: indwelling urethral catheter Encounter type: initial encounter Qualified Code(s): T83.511A - Infection and inflammatory reaction due to indwelling urethral catheter, initial encounter; N39.0 - Urinary tract infection, site not specified Is this a current diagnosis for this admission?: YesPlan: Patient has a chronic indwelling Catalan catheter from the [facility]. Patient had significant purulent discharge on presentation. Currently growing gram negative rods (4) Extravasation injury of intravenous catheter site with skin sloughing Is this a current diagnosis for this admission?: YesPlan: This was discovered well after the 6-12 hour ginette for phentolamine. Local wound care with silvadene and consult surgery for other recommendations. (5) Left lower lobe pneumonia Qualifiers: Pneumonia type: due to unspecified organism Qualified Code(s): J18.1 - Lobar pneumonia, unspecified organism Is this a current diagnosis for this admission?: YesPlan: Left lower lobe pneumonia secondary to aspiration. Concern for aspiration of fecal contents. Concern for gram-negative pneumonia in addition to healthcare associated pneumonia due to patient living in a nursing facility. Patient currently on cefepime, and Levaquin. Scheduled nebulized treatments and attempt to obtain a sputum specimen. Stop Vancomycin. (6) ARF (acute renal failure) Qualifiers: Acute renal failure type: with acute tubular necrosis Qualified Code (s): N17.0 - Acute kidney failure with tubular necrosis Is this a current diagnosis for this admission?: YesPlan: Improving 2/2 to hypotension, sepsis, and dehydration. Patient currently volume overloaded (7) Lactic acidosis Is this a current diagnosis for this admission?: Yes (8) NSTEMI (non-ST elevated myocardial infarction) Is this a current diagnosis for this admission?: YesPlan: Troponin of 1.8 and EKG changes segment depression in II, avL, V3,4, 5 and 6 with T-wave inversion. Patient has prior Q waves in 2 3 and aVF. Likely secondary to sepsis leading this is a type II non-STEMI. Appreciate cardiology for input. Have significant prior cardiac history including AICD. Patient appears to be improved and his echo is improved from previous. EF currently 40% (9) Laceration of penis Qualifiers: Encounter type: subsequent encounter Qualified Code(s): S31.21XD - Laceration without foreign body of penis, subsequent encounter Is this a current diagnosis for this admission?: Yes (10) Diabetes Qualifiers: Diabetes mellitus type: type 2 Diabetes mellitus complication status: with circulatory complication Diabetes mellitus complication detail: with other circulatory complications Diabetes mellitus mcc insulin use: without medication aid use Qualified Code(s): E11.59 - Type 2 diabetes mellitus with other circulatory complications Is this a current diagnosis for this admission?: YesPlan: Patient's last hemoglobin A1c was 6.1. Place patient on Accu-Cheks and sliding scale insulin. Place patient on tube feeds. (11) Dyslipidemia Is this a current diagnosis for this admission?: Yes (12) CAD (coronary artery disease) Qualifiers: Coronary Disease-Associated Artery/Lesion type: habematolel artery [place] vs. transplanted heart: habematolel heart Associated angina: without angina Qualified Code(s): I25.10 - Atherosclerotic heart disease of habematolel coronary artery without angina pectoris Is this a current diagnosis for this admission?: Yes (13) History of cerebrovascular accident with residual deficit Is this a current diagnosis for this admission?: Yes (14) Protein-calorie malnutrition, moderate Is this a current diagnosis for this admission?: Yes (15) Anemia Qualifiers: Anemia type: unspecified type Qualified Code(s): D64.9 - Anemia, unspecified Is this a current diagnosis for this admission?: Yes (16) Fecal impaction Is this a current diagnosis for this admission?: Yes (17) DVT prophylaxis Is this a current diagnosis for this admission?: Yes (18) GI Prophylaxis Is this a current diagnosis for this admission?: Yes (19) Full code status Is this a current diagnosis for this admission?: Yes - Time Time Spent with patient: 30 minutes spent Time Spent with patient: 25-34 minutes Critical Time spent with patient: 25-34 minutes Medications reviewed and adjusted accordingly: Yes Anticipated discharge: SNF
[2017-01-06 16:07] LABS: ANION GAP 9 (5-19); BLOOD UREA NITROGEN 42 mg/dL (7-20); CALCIUM 7.9 mg/dL (8.4-10.2); CARBON DIOXIDE 26 mmol/L (22-30); CHLORIDE 117 mmol/L (98-107); GLUCOSE 235 mg/dL (75-110); MAGNESIUM 2.3 mg/dL (1.6-2.3); POTASSIUM 3.9 mmol/L (3.6-5.0); SODIUM 151.5 mmol/L (137-145)
[2017-01-06] MEDS: CEFTRIAXONE 1 GM/D5W RTU 1 GM/50 ML RTUPB IV SCH (17:17)
[2017-01-06] MEDS: ATORVASTATIN CALCIUM 10 MG TABLET PEG SCH (21:08)
[2017-01-06] MEDS: CARVEDILOL 6.25 MG TABLET PEG SCH (21:08)
[2017-01-06] MEDS: LATANOPROST 0.005% OPH SOLN 2.5 ML OD SCH (21:28)
[2017-01-06] MEDS ORDERED: CARVEDILOL 3.125 MG TABLET PO SCH (22:00)
--- NOTE | 2017-01-06 23:08 | PROGRESS NOTE E ---
Progress Note NAME: SEUN TOTH : 1940 AGE: 76Y DATE: 01/06/2017 ROOM: [facility] SUBJECTIVE: Note that the patient appears to be comfortable. He is off the vasopressin. He is off pressors and his blood pressure is stable. He does not appear to be in any acute distress. It is very difficult to get a history from the patient. There is no arrhythmia seen on the monitor. OBJECTIVE: GENERAL: Patient appears to be in no acute distress. He is well built and seems to be well nourished. VITAL SIGNS: He is afebrile and has a temperature of 98.1 degrees Fahrenheit. His is 98 beats per minute. Blood pressure is 128/72. Respirations are 14 per minute. O2 sats are 99% on room air. HEENT: Head is atraumatic, normocephalic. Eyes: Pupils are equal, round, regular, reactive to light and accommodation. Extraocular movements are normal. There is no conjunctival pallor. There is no scleral icterus. ENT is negative. NECK: Supple. There is no JVD. Carotids are equal. There is no bruit. There is no lymphadenopathy. There is no goiter. LUNGS: Show a few dry crackles at the left base. The rest of the lungs are clear. There are no rales of CHF. There is no rhonchi or wheezing. HEART: S1 and S2 are heard. There is no S3 gallop. There is no S4 gallop. There is a systolic murmur in the left sternal border and the apex. There is no rub. ABDOMEN: Soft with a PEG tube in situ. There is no hepatosplenomegaly. Bowel sounds are well heard. EXTREMITIES: Scar of surgery in the left groin present. Femorals are very much difficult to palpate. There is left BKA. There is no pedal edema. There are no femoral bruits. The leg pulses are diminished. There is no cyanosis or clubbing. There is no DVT or cellulitis. CENTRAL NERVOUS SYSTEM: The patient is conscious, awake but confused and aphasic. He has mild left-sided weakness. PSYCHIATRIC: The patient does not appear to be agitated or depressed. DIAGNOSTIC TEST RESULTS: The patient's 24-hr intake is 3595 mL, output is 2850 mL. Note that there is a surgical consultation for possible *------* of the inotropes in the left arm. The patient's white count is 12,000, hemoglobin is 8.8, hematocrit is 28.1, and his platelet count is 116,000. His sodium is increased to 151.5, potassium is 3.9, chloride 117, his CO2 is 26, the patient's BUN is 42, creatinine is 1, GFR is greater than 60, glucose is 235 and his calcium is 7.9 and his magnesium is 2.3. IMPRESSION: 1. NON-ST ELEVATION MT. 2. SEPTIC SHOCK. The patient is much improved. Patient is nor on any agents to keep his blood pressure up. He is off all vasopressor agents. 3. ACUTE RENAL FAILURE SECONDARY TO DEHYDRATION AND SEPTIC SHOCK, RESOLVED. The patient's GFR now is normal. 4. LEFT LOWER LOBE PNEUMONIA. Seems to be improved; the patient asymptomatic. 5. 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 6. HISTORY OF PEG TUBE IN SITU DUE TO DYSPHAGIA. 7. CORONARY ARTERY DISEASE. At present there is evidence of non-ST elevation MT with abnormal EKG. The patient appears to be comfortable and the patient is unable to give a history. 8. ABNORMAL EKG. 9. HISTORY OF MT BY STRESS TESTING IN THE PAST AND HISTORY OF STENT IN LAD AND HISTORY OF MID LAD OCCLUSION BY PRIOR CATH. 10. CARDIOMYOPATHY WITH LV EJECTION FRACTION OF 40% BY RECENT ECHO. 11. HISTORY OF HYPERTENSION. At hypotension is resolved. 12. DIABETES MELLITUS NONINSULIN DEPENDENT TYPE 2. 13. HYPERLIPIDEMIA. 14. PERIPHERAL VASCULAR DISEASE WITH HISTORY OF LEFT BKA. 15. AICD PLACEMENT/AUTOMATIC IMPLANTABLE CARDIOVERTER/DEFIBRILLATOR. No firing of this. 16. ELEVATED TROPONIN I WHICH IS TRENDING DOWN. RECOMMENDATIONS: Would recheck the patient's EKG in a.m. and also recheck the patient's troponin I to make sure that is trending down. Would start the patient on Coreg 6.25 mg p.o. q.12 h. and also add an ARB in view of the patient's LV dysfunction. Later if he tolerates this, will start the patient on nitrates. The patient is not a candidate for aggressive treatment such as cardiac catheterization and, hence, not a candidate for stress testing. TIME SPENT: Note, 30 minutes spent on this patient with more than 50% of the time spent on direct patient care. The patient's medications have been reviewed and adjusted in conjunction with consultation with attending physician on the case. This patient's medical condition and comorbidities demand a highly complex medical decision making, which has been done. Will follow with you. Thanking you. DICTATING PHYSICIAN: SARY KENNEDY M.D. [id number] PHY#: [id number] ID: [id number] JOB#: [id number] ACCT: [id number] cc: >
[2017-01-06] MEDS ORDERED: NITROGLYCERIN 5 MG (0.2 MG/HR) PATCH.TD24 TD ONE (23:30)
[2017-01-07] MEDS: IPRATROPIUM/ALBUTEROL 0.5-2.5 MG/3 ML AMPUL NEB SCH ×4 (02:13→20:06)
[2017-01-07] MEDS: POTASSI CL 20 MEQ/D5-1/2NS 1L 1,000 ML IV PRN (03:49)
[2017-01-07 05:00] LABS: ABSOLUTE EOSINOPHILS # (AUTO) 0.1 10^3/uL (0.0-0.6); ABSOLUTE LYMPHOCYTES (AUTO) 0.6 10^3/uL (0.5-4.7); ABSOLUTE MONOCYTES (AUTO) 0.7 10^3/uL (0.1-1.4); ABSOLUTE NEUT (AUTO) 8.4 10^3/uL (1.7-8.2); BASOPHILS % (AUTO) 0.1 % (0-2); EOSINOPHILS % (AUTO) 1.1 % (0-6); HEMATOCRIT 31.6 % (37.9-51.0); HEMOGLOBIN 9.9 g/dL (13.5-17.0); HGB HCT DIFFERENCE -1.9; LYMPHOCYTES % (AUTO) 6.5 % (13-45); MEAN CORPUSCULAR HEMOGLOBIN 24.6 pg (27.0-33.4); MEAN CORPUSCULAR HGB CONC 31.2 g/dL (32.0-36.0); MEAN CORPUSCULAR VOLUME 79 fl (80-97); MONOCYTES % (AUTO) 6.9 % (3-13); RED BLOOD COUNT 4.01 10^6/uL (4.35-5.55); RED CELL DISTRIBUTION WIDTH 18.3 % (11.5-14.0); SEGMENTED NEUTROPHILS % (AUTO) 85.4 % (42-78); WHITE BLOOD COUNT 9.8 10^3/uL (4.0-10.5)
[2017-01-07] MEDS: HEPARIN SOD (PORCINE) 5,000 UNIT/ML 1 ML SYRINGE SUBCUT SCH ×3 (05:13→21:53)
[2017-01-07 05:18] LABS: ALANINE AMINOTRANSFERASE 76 U/L (21-72); ALBUMIN 2.3 g/dL (3.5-5.0); ALKALINE PHOSPHATASE 68 U/L (38-126); ANION GAP 7 (5-19); ASPARTATE AMINO TRANSFERASE 40 U/L (17-59); BILIRUBIN,DIRECT 0.4 mg/dL (0.0-0.4); BILIRUBIN,TOTAL 0.4 mg/dL (0.2-1.3); BLOOD UREA NITROGEN 37 mg/dL (7-20); CALCIUM 8.1 mg/dL (8.4-10.2); CARBON DIOXIDE 29 mmol/L (22-30); CHLORIDE 117 mmol/L (98-107); CREATININE RESULT 0.95 mg/dL (0.52-1.25); GLUCOSE 319 mg/dL (75-110); MAGNESIUM 2.1 mg/dL (1.6-2.3); PHOSPHORUS 2.5 mg/dL (2.5-4.5); POTASSIUM 3.7 mmol/L (3.6-5.0); SODIUM 152.7 mmol/L (137-145); TOTAL PROTEIN 5.7 g/dL (6.3-8.2)
[2017-01-07] MEDS: INSULIN LISPRO 100 UNIT/ML 3 ML VIAL SUBCUT PRN ×3 (05:57→23:36)
--- NOTE | 2017-01-07 08:51 | EKG REPORT ---
SEVERITY:- ABNORMAL ECG - SINUS TACHYCARDIA VENTRICULAR TRIGEMINY NONSPECIFIC INTRAVENTRICULAR CONDUCTION DELAY INFERIOR INFARCT, AGE INDETERMINATE : Confirmed by: Marcy Herndon 07-Jan-2017 08:51:12
[2017-01-07] MEDS ORDERED: LOSARTAN POTASSIUM 25 MG TABLET PO SCH (10:00)
--- NOTE | 2017-01-07 10:56 | PDOC PROGRESS REPORT ---
Subjective Progress Note for:: 01/07/17 Subjective:: Patient denies any shortness of breath, chills or fever. Patient likewise denies any pain at this time. No reported diarrhea. No nausea or vomiting. Patient however is on tube feedings. Unknown if the patient had bowel movement recently. Physical Exam Vital Signs: Temp Pulse Resp BP Pulse Ox 97.5 F 108 H 16 129/81 H 98 01/07/17 07:31 01/07/17 07:50 01/07/17 07:50 01/07/17 07:31 01/07/17 07:50 Intake & Output 01/06/17 01/07/17 01/08/17 06:59 06:59 06:59 Intake Total 3595 1954 Output Total 2850 1600 Balance 745 354 Weight 85.3 kg 85 kg General appearance: PRESENT: no acute distress, cooperative Head exam: PRESENT: normocephalic Eye exam: PRESENT: EOMI Mouth exam: PRESENT: moist, neck supple Neck exam: ABSENT: JVD Respiratory exam: PRESENT: clear to auscultation joaquin. ABSENT: rhonchi, wheezes Cardiovascular exam: PRESENT: RRR. ABSENT: gallop GI/Abdominal exam: PRESENT: hypoactive bowel sounds, soft. ABSENT: distended, tenderness Extremities exam: PRESENT: other - Below-knee amputation on the left. ABSENT: pedal edema - Right Neurological exam: PRESENT: alert, awake, other - Dysarthria Psychiatric exam: ABSENT: agitated Focused psych exam: ABSENT: restlessness Skin exam: PRESENT: dry, warm. ABSENT: cyanosis Results Laboratory Results: 01/07/17 04:05 01/07/17 04:05 01/06/17 01/07/17 01/07/17 15:30 04:05 04:05 WBC 9.8 RBC 4.01 L Hgb 9.9 L Hct 31.6 L MCV 79 L MCH 24.6 L MCHC 31.2 L RDW 18.3 H Plt Count 138 L Seg Neutrophils % 85.4 H Lymphocytes % 6.5 L Monocytes % 6.9 Eosinophils % 1.1 Basophils % 0.1 Absolute Neutrophils 8.4 H Absolute Lymphocytes 0.6 Absolute Monocytes 0.7 Absolute Eosinophils 0.1 Absolute Basophils 0.0 Sodium 151.5 H 152.7 H Potassium 3.9 3.7 Chloride 117 H 117 H Carbon Dioxide 26 29 Anion Gap 9 7 BUN 42 H 37 H Creatinine 1.00 0.95 Est GFR ( Amer) > 60 > 60 Est GFR (Non-Af Amer) > 60 > 60 Glucose 235 H 319 H Calcium 7.9 L 8.1 L Phosphorus 2.5 Magnesium 2.3 2.1 Total Bilirubin 0.4 AST 40 ALT 76 H Alkaline Phosphatase 68 Total Protein 5.7 L Albumin 2.3 L 01/04/17 01/04/17 01/04/17 06:39 06:39 12:00 Creatine Kinase 261 H 244 H CK-MB (CK-2) 3.50 Troponin I 1.080 01/04/17 01/05/17 01/07/17 12:30 11:10 04:05 Creatine Kinase CK-MB (CK-2) 3.79 Troponin I 0.905 0.731 0.395 Impressions: KUB X-Ray 01/04/17 00:00 IMPRESSION: NO RADIOGRAPHIC EVIDENCE FOR ACUTE ABDOMINAL DISEASE. Marked constipation. Suspect fecal impaction. Chest X-Ray 01/05/17 00:00 IMPRESSION: STABLE APPEARANCE OF THE CHEST. Venous Doppler Study 01/05/17 00:00 IMPRESSION: NO EVIDENCE DVT OR SVT LEFT ARM. Assessment & Plan - Diagnosis (1) Severe sepsis with septic shock Is this a current diagnosis for this admission?: Yes (2) UTI (urinary tract infection) due to urinary indwelling Catalan catheter Qualifiers: Indwelling urinary catheter type: indwelling urethral catheter Encounter type: initial encounter Qualified Code(s): T83.511A - Infection and inflammatory reaction due to indwelling urethral catheter, initial encounter; N39.0 - Urinary tract infection, site not specified Is this a current diagnosis for this admission?: Yes (3) Acute kidney injury Is this a current diagnosis for this admission?: Yes (4) Acute on chronic combined systolic (congestive) and diastolic (congestive) heart failure Is this a current diagnosis for this admission?: Yes (5) Left lower lobe pneumonia Qualifiers: Pneumonia type: due to unspecified organism Qualified Code(s): J18.1 - Lobar pneumonia, unspecified organism Is this a current diagnosis for this admission?: Yes (6) NSTEMI (non-ST elevated myocardial infarction) Is this a current diagnosis for this admission?: Yes (7) Anemia Qualifiers: Anemia type: unspecified type Qualified Code(s): D64.9 - Anemia, unspecified Is this a current diagnosis for this admission?: Yes (8) Fecal impaction Is this a current diagnosis for this admission?: Yes (9) Laceration of penis Qualifiers: Encounter type: subsequent encounter Qualified Code(s): S31.21XD - Laceration without foreign body of penis, subsequent encounter Is this a current diagnosis for this admission?: Yes (10) CVA (cerebral vascular accident) Qualifiers: CVA mechanism: unspecified Qualified Code(s): I63.9 - Cerebral infarction, unspecified (11) Diabetes Qualifiers: Diabetes mellitus type: type 2 Diabetes mellitus complication status: with circulatory complication Diabetes mellitus complication detail: with other circulatory complications Diabetes mellitus scallop binder insulin use: without halfway use Qualified Code(s): E11.59 - Type 2 diabetes mellitus with other circulatory complications Is this a current diagnosis for this admission?: Yes (12) Dyslipidemia Is this a current diagnosis for this admission?: Yes (13) Peripheral vascular disease Is this a current diagnosis for this admission?: Yes (14) CAD (coronary artery disease) Qualifiers: Coronary Disease-Associated Artery/Lesion type: [place] artery [place] vs. transplanted heart: [place] heart Associated angina: without angina Qualified Code(s): I25.10 - Atherosclerotic heart disease of [place] coronary artery without angina pectoris Is this a current diagnosis for this admission?: Yes (15) HTN (hypertension) Qualifiers: Hypertension type: essential hypertension Qualified Code(s): I10 - Essential (primary) hypertension Is this a current diagnosis for this admission?: Yes - Time Time Spent with patient: 25-34 minutes - Plan Summary Plan Summary: Continue current antibiotic. Discontinue intravenous fluids and monitor electrolytes. We will recheck a KUB for fecal impaction. Continue tube feedings. Continue supportive care. Discontinue intravenous diuretic as well.
[2017-01-07] MEDS: CLOPIDOGREL BISULFATE 75 MG TABLET PEG SCH (11:55)
[2017-01-07] MEDS: CARVEDILOL 6.25 MG TABLET PEG SCH ×2 (11:55→21:50)
[2017-01-07] MEDS: ASPIRIN 81 MG TABLET, CHEWABLE PEG SCH (11:55)
[2017-01-07] MEDS: MULTIVITS W-MIN/IRON SOLN 60 ML PEG SCH (11:56)
[2017-01-07] MEDS: FAMOTIDINE INJ/PF 20 MG/2 ML SDV IV SCH ×2 (11:56→21:51)
[2017-01-07] MEDS: FOLIC ACID 1 MG TABLET PEG SCH (11:56)
--- NOTE | 2017-01-07 12:19 | PDOC PROGRESS REPORT ---
Subjective Progress Note for:: 01/07/17 Subjective:: Patient was seen this a.m. Nursing states that the dressings were performed yesterday on his left upper extremity as ordered. Nursing states that they do not feel the patient is having pain in the area. The dressing has not been undone since placement yesterday. Patient denies any pain although with his expressive aphasia it is difficult to understand him. Physical Exam Vital Signs: Temp Pulse Resp BP Pulse Ox 97.5 F 108 H 16 129/81 H 98 01/07/17 07:31 01/07/17 07:50 01/07/17 07:50 01/07/17 07:31 01/07/17 07:50 Intake & Output 01/06/17 01/07/17 01/08/17 06:59 06:59 06:59 Intake Total 3595 1954 Output Total 2850 1600 Balance 745 354 Weight 85.3 kg 85 kg Extremities exam: PRESENT: other - Evaluation of his left upper extremity following removal of the Kerlix dressing reveals superficial epidermal skin slough along roughly the same area as noted previously volar aspect, medial, distal to the antecubital fossa. Capillary refill is less than 3 seconds at the fingers. Radial and ulnar pulses are +5/5. There is no debris wound. Does not appear to be size of the deep dermis. Results Laboratory Results: 01/07/17 04:05 01/07/17 04:05 01/06/17 01/07/17 01/07/17 15:30 04:05 04:05 WBC 9.8 RBC 4.01 L Hgb 9.9 L Hct 31.6 L MCV 79 L MCH 24.6 L MCHC 31.2 L RDW 18.3 H Plt Count 138 L Seg Neutrophils % 85.4 H Lymphocytes % 6.5 L Monocytes % 6.9 Eosinophils % 1.1 Basophils % 0.1 Absolute Neutrophils 8.4 H Absolute Lymphocytes 0.6 Absolute Monocytes 0.7 Absolute Eosinophils 0.1 Absolute Basophils 0.0 Sodium 151.5 H 152.7 H Potassium 3.9 3.7 Chloride 117 H 117 H Carbon Dioxide 26 29 Anion Gap 9 7 BUN 42 H 37 H Creatinine 1.00 0.95 Est GFR ( Amer) > 60 > 60 Est GFR (Non-Af Amer) > 60 > 60 Glucose 235 H 319 H Calcium 7.9 L 8.1 L Phosphorus 2.5 Magnesium 2.3 2.1 Total Bilirubin 0.4 AST 40 ALT 76 H Alkaline Phosphatase 68 Total Protein 5.7 L Albumin 2.3 L 01/04/17 01/04/17 01/04/17 06:39 06:39 12:00 Creatine Kinase 261 H 244 H CK-MB (CK-2) 3.50 Troponin I 1.080 01/04/17 01/05/17 01/07/17 12:30 11:10 04:05 Creatine Kinase CK-MB (CK-2) 3.79 Troponin I 0.905 0.731 0.395 Impressions: KUB X-Ray 01/04/17 00:00 IMPRESSION: NO RADIOGRAPHIC EVIDENCE FOR ACUTE ABDOMINAL DISEASE. Marked constipation. Suspect fecal impaction. Chest X-Ray 01/05/17 00:00 IMPRESSION: STABLE APPEARANCE OF THE CHEST. Venous Doppler Study 01/05/17 00:00 IMPRESSION: NO EVIDENCE DVT OR SVT LEFT ARM. Assessment & Plan - Diagnosis (1) Extravasation injury of intravenous catheter site with skin sloughing Is this a current diagnosis for this admission?: YesPlan: Continue with the pain dressing covered by Adaptic gauze and a Kerlix bulky dressing daily - Time Time Spent with patient: 15-24 minutes
--- NOTE | 2017-01-07 13:23 | RADIOLOGY REPORT (SQ) ---
EXAM DESCRIPTION: KUB/ABDOMEN (SINGLE VIEW) COMPLETED DATE/TIME: 01/07/2017 1:08 pm REASON FOR STUDY: fecal impaction COMPARISON: CT abdomen pelvis 10/09/2016 Abdominal ultrasound 06/19/2013 KUB 01/04/2017 NUMBER OF VIEWS: One view. TECHNIQUE: Supine radiographic image of the abdomen acquired. LIMITATIONS: None. FINDINGS: BOWEL GAS PATTERN: Large amount of stool in the ascending colon and rectosigmoid. Otherwi se unremarkable bowel gas pattern. CALCIFICATIONS: No suspicious calcifications. SOFT TISSUES: No gross mass or suggestion of organomegaly. HARDWARE: Catalan catheter in the bladder. Gastrostomy tube tip over the gastric antrum BONES: No acute fracture. No worrisome bone lesions. OTHER: Minimal left basilar bandlike atelectasis IMPRESSION: Constipation TECHNICAL DOCUMENTATION: JOB ID: [id number] [employer]- All Rights Reserved
[2017-01-07] MEDS: FERROUS SULFATE LIQUID 300 MG/5 ML UDC PEG SCH ×2 (15:30→17:57)
[2017-01-07] MEDS: CEFTRIAXONE 1 GM/D5W RTU 1 GM/50 ML RTUPB IV SCH (17:57)
[2017-01-07] MEDS: SILVER SULFADIAZINE 1% CREAM 25 GM TP SCH (18:34)
--- NOTE | 2017-01-07 20:13 | PROGRESS NOTE E ---
Progress Note NAME: SEUN TOTH : 1940 AGE: 76Y DATE: 01/07/2017 ROOM: 306 SUBJECTIVE: Note that the patient appears to be comfortable. There is no ventricular arrhythmia seen, and no further history is available. The patient is confused and is aphasic. OBJECTIVE: GENERAL: On examination the patient is well built, in no acute distress. He appears to be well nourished. VITAL SIGNS: He is afebrile with a temperature of 97.5 degrees axillary. Pulse is 82 beats per minute. Blood pressure 129/81. Respirations are 18 per minute. O2 saturations are 100% on room air. HEAD: Atraumatic/normocephalic. EYES: Pupils are equal, round, regular, reactive to light and accommodation. Extraocular movements are normal. There is no conjunctival pallor. There is no scleral icterus. EARS, NOSE, AND THROAT: Negative. NECK: Supple. There is no JVD. Carotids are equal. There is no bruit. There is no lymphadenopathy. There is no goiter. LUNGS: Show a few dry crackles at the left base. The rest of the lungs are clear. There are no rales of CHF. There is no rhonchi or wheezing. HEART: S1, S2 is heard. There is no S3 gallop. There is no S4 gallop. There is a systolic murmur in the left sternal border and the apex. There is no rub. ABDOMEN: Soft with PEG tube in situ. There is no hepatosplenomegaly. Bowel sounds are well heard. EXTREMITIES: Scar of a vascular surgery present in the left groin. *------* left BKA. There is no pedal edema. There is no femoral bruit. Leg pulses are diminished. There is no cyanosis or clubbing. There is no DVT or cellulitis. CENTRAL NERVOUS SYSTEM: The patient is conscious, awake, but confused and aphasic, and he has mild left-sided weakness. PSYCHIATRIC: The patient does not appear to be agitated or depressed. FLUID BALANCE: The patient's 24-hour intake is 1954 mL, output is 1600 mL. DIAGNOSTIC DATA: The patient's EKG shows sinus tachycardia, ventricular trigeminy, nonspecific IVCD, inferior infarct old. Also there is lateral T-wave inversion suggestive of ischemia. The patient's white count is 9,800, hemoglobin is 9.9, hematocrit is 31.6, platelet count is 138,000. The patient's sodium is 152.7, his potassium is 3.7, chloride is 117, CO2 is 29, the patient's BUN is 37, creatinine 0.95, GFR is greater than 60, his glucose is 319, his calcium is 8.1, his phosphorous is 2.5, magnesium is 2.1. The patient's liver function tests are normal except for an ALT which is elevated at 76. His alkaline phosphatase is 68. His troponin-I has trended down to 0.395. IMPRESSION: 1. [id number] NM. No anginal symptoms. 2. STATUS POST SEPTIC SHOCK. At present, blood pressure improved and we were able to start anti-CAD medications for the patient and anti-cardiomyopathy medication. 3. ACUTE RENAL FAILURE. Resolved. GFR is now normal. 4. LEFT LOWER EXTREMITY PNEUMONIA. Seems to have improved. The patient is asymptomatic. 5. 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 6. HISTORY OF PEG TUBE DUE TO DYSPHAGIA, PATIENT BEING FED THROUGH THE PEG TUBE. 7. CORONARY ARTERY DISEASE. At present, there is evidence of [id number] NM with abnormal EKG. The patient appears to be comfortable but is unable to give a history. 8. ABNORMAL EKG. 9. HISTORY OF NM BY STRESS TESTING IN THE PAST AND HISTORY OF STENT IN THE LAD AND HISTORY OF MID-LAD OCCLUSION. 10. CARDIOMYOPATHY WITH LV EJECTION FRACTION OF 40% BY RECENT ECHOCARDIOGRAM. 11. HISTORY OF HYPERTENSION. Note, hypotension has resolved. 12. DIABETES MELLITUS, NON-INSULIN DEPENDENT, TYPE 2. 13. HYPERLIPIDEMIA. 14. PERIPHERAL VASCULAR DISEASE WITH HISTORY OF LEFT BKA. 15. AICD PLACEMENT/AUTOMATIC IMPLANTABLE CARDIOVERTER DEFIBRILLATOR, NO FIRING OF THIS. 16. ELEVATED TROPONIN-I WHICH IS TRENDING DOWN. 17. HYPERNATREMIA. RECOMMENDATIONS: Would give free water through the PEG tube 50 mL every 6 hours to combat the hypernatremia. Would increase the patient's Coreg to 12.5 mg p.o. q.12 h. and also would increase the patient's ARB. Note, 30 minutes spent on this patient with more than 50% of the time spent on direct patient care with medications reviewed and adjusted. I will recheck the patient's chest x-ray in the a.m. and will follow with you. This patient's medical conditions and comorbidities demand a highly complex medical decision making which has been done. Will follow with you. Discussed and coordinated care with other caregiving providers on this case. DICTATING PHYSICIAN: SARY KENNEDY M.D. [id number] PHY#: [id number] ID: [id number] JOB#: [id number] ACCT: [id number] cc:SARY KENNEDY M.D. >
[2017-01-07] MEDS: LOSARTAN POTASSIUM 25 MG TABLET PO SCH (21:51)
[2017-01-07] MEDS: ATORVASTATIN CALCIUM 10 MG TABLET PEG SCH (21:51)
[2017-01-07] MEDS: NITROGLYCERIN 5 MG (0.2 MG/HR) PATCH.TD24 TD SCH (21:52)
[2017-01-07] MEDS: LATANOPROST 0.005% OPH SOLN 2.5 ML OD SCH (21:59)
[2017-01-08] MEDS: IPRATROPIUM/ALBUTEROL 0.5-2.5 MG/3 ML AMPUL NEB SCH ×4 (02:09→20:18)
[2017-01-08 04:58] LABS: ANION GAP 7 (5-19); BLOOD UREA NITROGEN 27 mg/dL (7-20); CALCIUM 8.1 mg/dL (8.4-10.2); CARBON DIOXIDE 27 mmol/L (22-30); CHLORIDE 120 mmol/L (98-107); CREATININE RESULT 0.84 mg/dL (0.52-1.25); GLUCOSE 169 mg/dL (75-110); POTASSIUM 3.2 mmol/L (3.6-5.0); SODIUM 154.3 mmol/L (137-145)
[2017-01-08] MEDS: HEPARIN SOD (PORCINE) 5,000 UNIT/ML 1 ML SYRINGE SUBCUT SCH ×3 (05:23→21:52)
[2017-01-08] MEDS: INSULIN LISPRO 100 UNIT/ML 3 ML VIAL SUBCUT PRN ×3 (05:58→19:02)
[2017-01-08] MEDS ORDERED: POTASSIUM CHLORIDE 20 MEQ/15 ML UDCUP PEG ONE ×2 (09:00→13:00)
--- NOTE | 2017-01-08 09:21 | RADIOLOGY REPORT (SQ) ---
EXAM DESCRIPTION: CHEST SINGLE VIEW COMPLETED DATE/TIME: 01/08/2017 8:23 am REASON FOR STUDY: LLL Pneumonia COMPARISON: Chest films 10/09/2016, 01/04/2017, 01/05/2017 EXAM PARAMETERS: NUMBER OF VIEWS: One view. TECHNIQUE: Single frontal radiographic view of the chest acquired. RADIATION DOSE: NA LIMITATIONS: None. FINDINGS: LUNGS AND PLEURA: Loss of discrete left hemidiaphragm likely due to left basilar atelectas is. Early or developing pneumonia could not be excluded. Right lung grossly clear. No pleural effusions. No pneumothorax. MEDIASTINUM AND HILAR STRUCTURES: No masses. Contour normal. HEART AND VASCULAR STRUCTURES: Stable moderate cardiomegaly BONES: No acute findings. HARDWARE: Right jugular central line tip in the right atrium. Unchanged left-sided pacemaker. OTHER: No other significant finding. IMPRESSION: New left basilar airspace disease, atelectasis versus pneumonia. TECHNICAL DOCUMENTATION: JOB ID: [id number]
[2017-01-08] MEDS: FERROUS SULFATE LIQUID 300 MG/5 ML UDC PEG SCH ×2 (09:42→17:21)
[2017-01-08] MEDS: LOSARTAN POTASSIUM 25 MG TABLET PO SCH ×2 (09:43→21:50)
[2017-01-08] MEDS: ASPIRIN 81 MG TABLET, CHEWABLE PEG SCH (09:43)
[2017-01-08] MEDS: FOLIC ACID 1 MG TABLET PEG SCH (09:43)
--- NOTE | 2017-01-08 09:43 | PDOC PROGRESS REPORT ---
Subjective Progress Note for:: 01/08/17 Subjective:: No complaints Physical Exam Vital Signs: Temp Pulse Resp BP Pulse Ox 97.4 F 42 L 16 143/55 H 98 01/08/17 07:17 01/08/17 07:17 01/08/17 07:17 01/08/17 07:17 01/08/17 07:17 Intake & Output 01/07/17 01/08/17 01/09/17 06:59 06:59 06:59 Intake Total 1954 735 Output Total 1600 850 Balance 354 -115 Weight 85 kg 91.7 kg General appearance: PRESENT: no acute distress, cooperative Extremities exam: PRESENT: other - Arm wound with superficial partial-thickness skin loss with no evidence of infection. No necrotic debris Results Laboratory Results: 01/07/17 04:05 01/08/17 04:20 01/08/17 04:20 Sodium 154.3 H Potassium 3.2 L Chloride 120 H Carbon Dioxide 27 Anion Gap 7 BUN 27 H Creatinine 0.84 Est GFR ( Amer) > 60 Est GFR (Non-Af Amer) > 60 Glucose 169 H Calcium 8.1 L 01/04/17 01/04/17 01/04/17 06:39 06:39 12:00 Creatine Kinase 261 H 244 H CK-MB (CK-2) 3.50 Troponin I 1.080 01/04/17 01/05/17 01/07/17 12:30 11:10 04:05 Creatine Kinase CK-MB (CK-2) 3.79 Troponin I 0.905 0.731 0.395 Impressions: Venous Doppler Study 01/05/17 00:00 IMPRESSION: NO EVIDENCE DVT OR SVT LEFT ARM. KUB X-Ray 01/07/17 00:00 IMPRESSION: Constipation Chest X-Ray 01/08/17 06:00 IMPRESSION: New left basilar airspace disease, atelectasis versus pneumonia. Assessment & Plan - Diagnosis (1) Extravasation injury of intravenous catheter site with skin sloughing Is this a current diagnosis for this admission?: YesPlan: Looks okay. Superficial partial skin loss. Continue local wound care. No role for surgical debridement at this time.
[2017-01-08] MEDS: CLOPIDOGREL BISULFATE 75 MG TABLET PEG SCH (09:45)
[2017-01-08] MEDS: CARVEDILOL 6.25 MG TABLET PEG SCH ×2 (09:45→21:51)
[2017-01-08] MEDS: FAMOTIDINE INJ/PF 20 MG/2 ML SDV IV SCH (09:46)
[2017-01-08] MEDS: MULTIVITS W-MIN/IRON SOLN 60 ML PEG SCH (10:00)
--- NOTE | 2017-01-08 10:02 | PDOC PROGRESS REPORT ---
Subjective Progress Note for:: 01/08/17 Subjective:: Patient reportedly with some agitation and uncooperativeness recently. No reported respiratory distress or temperature spikes. No nausea vomiting chills or fever. No diarrhea. Had good bowel movements during this hospital stay. KUB still shows constipation. Chest x-ray reportedly new left lower lobe infiltrate. Physical Exam Vital Signs: Temp Pulse Resp BP Pulse Ox 97.4 F 42 L 16 143/55 H 98 01/08/17 07:17 01/08/17 07:17 01/08/17 07:17 01/08/17 07:17 01/08/17 07:17 Intake & Output 01/07/17 01/08/17 01/09/17 06:59 06:59 06:59 Intake Total 1954 735 Output Total 1600 850 Balance 354 -115 Weight 85 kg 91.7 kg General appearance: PRESENT: no acute distress, other - Lethargic Head exam: PRESENT: normocephalic Mouth exam: PRESENT: moist, neck supple Neck exam: ABSENT: JVD Respiratory exam: PRESENT: decreased breath sounds - Bilateral. ABSENT: rhonchi , wheezes Cardiovascular exam: PRESENT: RRR, +S1, +S2. ABSENT: gallop GI/Abdominal exam: PRESENT: hypoactive bowel sounds, soft. ABSENT: distended, tenderness Extremities exam: PRESENT: other - Below knee amputation on the left. ABSENT: pedal edema Neurological exam: PRESENT: altered - Lethargic Skin exam: PRESENT: dry, warm. ABSENT: cyanosis Results Laboratory Results: 01/07/17 04:05 01/08/17 04:20 01/08/17 04:20 Sodium 154.3 H Potassium 3.2 L Chloride 120 H Carbon Dioxide 27 Anion Gap 7 BUN 27 H Creatinine 0.84 Est GFR ( Amer) > 60 Est GFR (Non-Af Amer) > 60 Glucose 169 H Calcium 8.1 L 01/04/17 01/04/17 01/04/17 06:39 06:39 12:00 Creatine Kinase 261 H 244 H CK-MB (CK-2) 3.50 Troponin I 1.080 01/04/17 01/05/17 01/07/17 12:30 11:10 04:05 Creatine Kinase CK-MB (CK-2) 3.79 Troponin I 0.905 0.731 0.395 Impressions: Venous Doppler Study 01/05/17 00:00 IMPRESSION: NO EVIDENCE DVT OR SVT LEFT ARM. KUB X-Ray 01/07/17 00:00 IMPRESSION: Constipation Chest X-Ray 01/08/17 06:00 IMPRESSION: New left basilar airspace disease, atelectasis versus pneumonia. Assessment & Plan - Diagnosis (1) Severe sepsis with septic shock Is this a current diagnosis for this admission?: Yes (2) UTI (urinary tract infection) due to urinary indwelling Catalan catheter Qualifiers: Indwelling urinary catheter type: indwelling urethral catheter Encounter type: initial encounter Qualified Code(s): T83.511A - Infection and inflammatory reaction due to indwelling urethral catheter, initial encounter; N39.0 - Urinary tract infection, site not specified Is this a current diagnosis for this admission?: Yes (3) Acute kidney injury Is this a current diagnosis for this admission?: Yes (4) Acute on chronic combined systolic (congestive) and diastolic (congestive) heart failure Is this a current diagnosis for this admission?: Yes (5) Left lower lobe pneumonia Qualifiers: Pneumonia type: due to unspecified organism Qualified Code(s): J18.1 - Lobar pneumonia, unspecified organism Is this a current diagnosis for this admission?: Yes (6) NSTEMI (non-ST elevated myocardial infarction) Is this a current diagnosis for this admission?: Yes (7) Anemia Qualifiers: Anemia type: unspecified type Qualified Code(s): D64.9 - Anemia, unspecified Is this a current diagnosis for this admission?: Yes (8) Fecal impaction Is this a current diagnosis for this admission?: Yes (9) Laceration of penis Qualifiers: Encounter type: subsequent encounter Qualified Code(s): S31.21XD - Laceration without foreign body of penis, subsequent encounter Is this a current diagnosis for this admission?: Yes (10) CVA (cerebral vascular accident) Qualifiers: CVA mechanism: unspecified Qualified Code(s): I63.9 - Cerebral infarction, unspecified (11) Diabetes Qualifiers: Diabetes mellitus type: type 2 Diabetes mellitus complication status: with circulatory complication Diabetes mellitus complication detail: with other circulatory complications Diabetes mellitus [facility] insulin use: without bed bug exterminator use Qualified Code(s): E11.59 - Type 2 diabetes mellitus with other circulatory complications Is this a current diagnosis for this admission?: Yes (12) Dyslipidemia Is this a current diagnosis for this admission?: Yes (13) Peripheral vascular disease Is this a current diagnosis for this admission?: Yes (14) CAD (coronary artery disease) Qualifiers: Coronary Disease-Associated Artery/Lesion type: [place] artery [place] vs. transplanted heart: [place] heart Associated angina: without angina Qualified Code(s): I25.10 - Atherosclerotic heart disease of [place] coronary artery without angina pectoris Is this a current diagnosis for this admission?: Yes (15) HTN (hypertension) Qualifiers: Hypertension type: essential hypertension Qualified Code(s): I10 - Essential (primary) hypertension Is this a current diagnosis for this admission?: Yes - Time Time Spent with patient: 25-34 minutes - Plan Summary Plan Summary: Mental status change could be secondary to increasing soap serum sodium. We will increase free water flushes. We will change tube feedings as per dietary recommendation. In the meantime we will replace potassium. Replace electrolytes in the morning. Continue current antibiotics for now. Day 4 of antibiotics. Continue supportive care. Avoid sedatives. Begin MiraLAX.
[2017-01-08] MEDS ORDERED: POLYETHYLENE GLYCOL 3350 POWDER 17 GM/1 PACKET PO ONE (10:30)
[2017-01-08] MEDS ORDERED: BISACODYL 10 MG SUPP.RECT PR ONE (11:00)
[2017-01-08] MEDS ORDERED: SPIRONOLACTONE 25 MG TABLET PO ONE (13:45)
--- NOTE | 2017-01-08 13:53 | PROGRESS NOTE E ---
Progress Note NAME: SEUN TOTH : 1940 AGE: 76Y DATE: 01/08/2017 ROOM: 306 SUBJECTIVE: The patient appears to be comfortable. There is no ventricular arrhythmia seen. There is no atrial arrhythmia seen. No further history is available. The patient is confused and aphasic. OBJECTIVE: GENERAL: The patient is well built and well nourished in no acute distress. VITAL SIGNS: He is afebrile with a temperature of 98.1 degrees Fahrenheit orally, pulse is 74 beats per minute, blood pressure is 122/55, respirations are 16 per minute, O2 sats are 99% on room air. HEENT: Head is normocephalic, atraumatic. Eyes: Pupils are equal, round, and reactive to light and accommodation. Extraocular movements are normal. There is no conjunctival pallor. There is no scleral icterus. ENT is negative. NECK: Supple. There is no JVD. Carotids are equal. There is no bruit. There is no lymphadenopathy. There is no goiter. LUNGS: Clear to auscultation and percussion. There are no rales of CHF. There are no rhonchi, rales or wheezing. HEART: S1 and S2 are heard. There is no S3 gallop. There is no S4 gallop. There is a systolic murmur in the left sternal border and the apex. There is no rub. ABDOMEN: Soft with PEG tube in situ. There is no hepatosplenomegaly. Bowel sounds are well heard. EXTREMITIES: There is a scar of vascular surgery present in the left groin. There is left BKA present. There is no pedal edema. There are no femoral bruits. Femorals are very much diminished. Leg pulses are diminished. There is no cyanosis or clubbing. There is no DVT or cellulitis. CENTRAL NERVOUS SYSTEM: The patient is conscious, awake but confused and has mild left-sided weakness. PSYCHIATRIC: The patient does not appear to be agitated but he is confused pleasantly. DIAGNOSTIC DATA: The patient's chest x-ray shows new left basilar airspace disease, atelectasis versus pneumonia. The patient's 24-hour intake is 735 mL, output is 850 mL. The patient's sodium is 154.3, potassium is 3.2, chloride 120, CO2 27, the patient's BUN is 27, creatinine 0.84, GFR is greater than 60, his glucose is 169 and his calcium is 8.1. IMPRESSION: 1. NON-ST ELEVATION NM. No anginal symptoms, seems to be stable. 2. STATUS POST SEPTIC SHOCK. At present, blood pressure improved and we are able to start anti-CAD and anti-cardiomyopathy medication. 3. ACUTE RENAL FAILURE. Resolved. GFR is now normal. 4. LEFT LOWER LOBE PNEUMONIA. There seems to be a new infiltrate in the left base. This probably represents a resolving left lower lobe pneumonia. 5. 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 6. HISTORY OF PEG TUBE DUE TO DYSPHAGIA, PATIENT BEING FED THROUGH THIS. 7. CORONARY ARTERY DISEASE. At present, there is evidence of [id number] NM but the patient is stable. The patient appears to be comfortable but is unable to give a history. 8. ABNORMAL EKG. 9. PAST HISTORY OF NM BY STRESS TESTING IN THE PAST AND HISTORY OF STENT IN THE LAD AND HISTORY OF MID-LAD OCCLUSION. 10. CARDIOMYOPATHY WITH LV EJECTION FRACTION OF 40% BY RECENT ECHO. 11. HISTORY OF HYPERTENSION. Blood pressure is well controlled. Note that the patient's hypotension and septic shock have resolved. 12. DIABETES MELLITUS, NON-INSULIN DEPENDENT, TYPE 2. 13. HYPERLIPIDEMIA. 14. PERIPHERAL VASCULAR DISEASE WITH HISTORY OF LEFT BKA. 15. AICD/AUTOMATIC IMPLANTABLE CARDIOVERTER DEFIBRILLATOR, NO FIRING OF THIS DEFIBRILLATOR. 16. ELEVATED TROPONIN-I WHICH HAS TRENDED DOWN. 17. HYPERNATREMIA. 18. HYPOKALEMIA. Note that the patient is being replenished with potassium. RECOMMENDATIONS: Will recommend doing free water like 200 mL via PEG tube every 6 hours. Would continue the patient on atorvastatin, aspirin, Coreg and ARB. The patient is on nebulizer treatments and antibiotics, continue these. The patient is on DVT prophylaxis with heparin 5000 units subcutaneously q.8 h. The patient is also transdermal nitro patch. Continue atorvastatin. Would change the patient's Pepcid 20 mg via the G tube. Will follow with you. Thanking you. Note that the patient has a PEG tube. I am not sure if we need to continue the patient on IV Pepcid, hence, will discuss with the hospitalist to stop the IV Pepcid. TIME SPENT: Thirty minutes spent on this patient with more than 50% of the time spent on direct patient care. His medications have been reviewed and adjusted. Note that this continues to be a highly complex medical decision making case, since the patient cannot give a history, he does have an abnormal EKG with evidence of non-ST elevation NM and cardiomyopathy. Will follow with you. Thanking you. DICTATING PHYSICIAN: SARY KENNEDY M.D. [id number] PHY#: [id number] ID: [id number] JOB#: [id number] ACCT: [id number] cc: >
[2017-01-08] MEDS: SILVER SULFADIAZINE 1% CREAM 25 GM TP SCH (15:50)
[2017-01-08] MEDS: CEFTRIAXONE 1 GM/D5W RTU 1 GM/50 ML RTUPB IV SCH (17:23)
[2017-01-08] MEDS: NITROGLYCERIN 5 MG (0.2 MG/HR) PATCH.TD24 TD SCH (21:51)
[2017-01-08] MEDS: ATORVASTATIN CALCIUM 10 MG TABLET PEG SCH (21:52)
[2017-01-08] MEDS: LATANOPROST 0.005% OPH SOLN 2.5 ML OD SCH (21:54)
[2017-01-08] MEDS: NORMAL SALINE INJ/PF 0.9% 10 ML SDV IV PRN (21:54)
[2017-01-09] MEDS: INSULIN LISPRO 100 UNIT/ML 3 ML VIAL SUBCUT PRN ×2 (00:17→05:51)
[2017-01-09] MEDS: IPRATROPIUM/ALBUTEROL 0.5-2.5 MG/3 ML AMPUL NEB SCH ×4 (01:31→19:47)
[2017-01-09 04:53] LABS: ANION GAP 6 (5-19); BLOOD UREA NITROGEN 24 mg/dL (7-20); CALCIUM 8.3 mg/dL (8.4-10.2); CARBON DIOXIDE 30 mmol/L (22-30); CHLORIDE 120 mmol/L (98-107); CREATININE RESULT 0.77 mg/dL (0.52-1.25); GLUCOSE 194 mg/dL (75-110); POTASSIUM 3.5 mmol/L (3.6-5.0); SODIUM 156.2 mmol/L (137-145)
[2017-01-09] MEDS: HEPARIN SOD (PORCINE) 5,000 UNIT/ML 1 ML SYRINGE SUBCUT SCH ×3 (05:19→21:32)
[2017-01-09] MEDS ORDERED: DOCUSATE SODIUM 100 MG/10 ML UDC PEG SCH (10:00)
--- NOTE | 2017-01-09 10:04 | PDOC PROGRESS REPORT ---
Subjective Progress Note for:: 01/09/17 Subjective:: More awake and alert. Wants to try to take food orally. No reported diarrhea, N/ V/SOB nor temp. spikes. Had good BM yesterday according to the patient. Physical Exam Vital Signs: Temp Pulse Resp BP Pulse Ox 98.6 F 100 17 150/38 H 98 01/09/17 03:28 01/09/17 08:13 01/09/17 08:13 01/09/17 08:13 01/09/17 03:28 Intake & Output 01/08/17 01/09/17 01/10/17 06:59 06:59 06:59 Intake Total 735 725 Output Total 850 1950 Balance -115 -1225 Weight 91.7 kg 90.6 kg General appearance: PRESENT: no acute distress, cooperative Head exam: PRESENT: normocephalic Eye exam: PRESENT: EOMI Mouth exam: PRESENT: moist, neck supple Neck exam: ABSENT: JVD Respiratory exam: PRESENT: clear to auscultation joaquin. ABSENT: rhonchi, wheezes Cardiovascular exam: PRESENT: irregular rhythm. ABSENT: gallop GI/Abdominal exam: PRESENT: normal bowel sounds, soft. ABSENT: distended Rectal exam: PRESENT: other - BKA on L Neurological exam: PRESENT: alert, awake Skin exam: PRESENT: dry, warm. ABSENT: cyanosis Results Laboratory Results: 01/07/17 04:05 01/09/17 03:56 01/09/17 03:56 Sodium 156.2 H Potassium 3.5 L Chloride 120 H Carbon Dioxide 30 Anion Gap 6 BUN 24 H Creatinine 0.77 Est GFR ( Amer) > 60 Est GFR (Non-Af Amer) > 60 Glucose 194 H Calcium 8.3 L 01/04/17 03:10 Catheterized Urine Urine Culture - Final Escherichia Coli Enterococcus Faecalis(Group D) 01/04/17 01/04/17 01/04/17 06:39 06:39 12:00 Creatine Kinase 261 H 244 H CK-MB (CK-2) 3.50 Troponin I 1.080 01/04/17 01/05/17 01/07/17 12:30 11:10 04:05 Creatine Kinase CK-MB (CK-2) 3.79 Troponin I 0.905 0.731 0.395 Impressions: Venous Doppler Study 01/05/17 00:00 IMPRESSION: NO EVIDENCE DVT OR SVT LEFT ARM. KUB X-Ray 01/07/17 00:00 IMPRESSION: Constipation Chest X-Ray 01/08/17 06:00 IMPRESSION: New left basilar airspace disease, atelectasis versus pneumonia. Assessment & Plan - Diagnosis (1) Severe sepsis with septic shock Is this a current diagnosis for this admission?: Yes (2) UTI (urinary tract infection) due to urinary indwelling Catalan catheter Qualifiers: Indwelling urinary catheter type: indwelling urethral catheter Encounter type: initial encounter Qualified Code(s): T83.511A - Infection and inflammatory reaction due to indwelling urethral catheter, initial encounter; N39.0 - Urinary tract infection, site not specified Is this a current diagnosis for this admission?: Yes (3) Acute kidney injury Is this a current diagnosis for this admission?: Yes (4) Acute on chronic combined systolic (congestive) and diastolic (congestive) heart failure Is this a current diagnosis for this admission?: Yes (5) Left lower lobe pneumonia Qualifiers: Pneumonia type: due to unspecified organism Qualified Code(s): J18.1 - Lobar pneumonia, unspecified organism Is this a current diagnosis for this admission?: Yes (6) NSTEMI (non-ST elevated myocardial infarction) Is this a current diagnosis for this admission?: Yes (7) Anemia Qualifiers: Anemia type: unspecified type Qualified Code(s): D64.9 - Anemia, unspecified Is this a current diagnosis for this admission?: Yes (8) Fecal impaction Is this a current diagnosis for this admission?: Yes (9) Laceration of penis Qualifiers: Encounter type: subsequent encounter Qualified Code(s): S31.21XD - Laceration without foreign body of penis, subsequent encounter Is this a current diagnosis for this admission?: Yes (10) CVA (cerebral vascular accident) Qualifiers: CVA mechanism: unspecified Qualified Code(s): I63.9 - Cerebral infarction, unspecified (11) Diabetes Qualifiers: Diabetes mellitus type: type 2 Diabetes mellitus complication status: with circulatory complication Diabetes mellitus complication detail: with other circulatory complications Diabetes mellitus watermaster insulin use: without mcc use Qualified Code(s): E11.59 - Type 2 diabetes mellitus with other circulatory complications Is this a current diagnosis for this admission?: Yes (12) Dyslipidemia Is this a current diagnosis for this admission?: Yes (13) Peripheral vascular disease Is this a current diagnosis for this admission?: Yes (14) CAD (coronary artery disease) Qualifiers: Coronary Disease-Associated Artery/Lesion type: [place] artery [place] vs. transplanted heart: [place] heart Associated angina: without angina Qualified Code(s): I25.10 - Atherosclerotic heart disease of [place] coronary artery without angina pectoris Is this a current diagnosis for this admission?: Yes (15) HTN (hypertension) Qualifiers: Hypertension type: essential hypertension Qualified Code(s): I10 - Essential (primary) hypertension Is this a current diagnosis for this admission?: Yes - Time Time Spent with patient: 25-34 minutes - Plan Summary Plan Summary: Water flushes increased yesterday but not carried out. We will increase water flushes and staff auditor notified. Add doxycycline. Check swallowing safety. Cont. other meds and supportive care.
[2017-01-09] MEDS: POLYETHYLENE GLYCOL 3350 POWDER 17 GM/1 PACKET PO SCH (10:10)
[2017-01-09] MEDS: LOSARTAN POTASSIUM 25 MG TABLET PO SCH ×2 (10:11→21:29)
[2017-01-09] MEDS: FERROUS SULFATE LIQUID 300 MG/5 ML UDC PEG SCH ×2 (10:11→17:48)
[2017-01-09] MEDS: FOLIC ACID 1 MG TABLET PEG SCH (10:11)
[2017-01-09] MEDS: CLOPIDOGREL BISULFATE 75 MG TABLET PEG SCH (10:12)
[2017-01-09] MEDS: CARVEDILOL 6.25 MG TABLET PEG SCH ×2 (10:12→21:29)
[2017-01-09] MEDS: SPIRONOLACTONE 25 MG TABLET PO SCH (10:12)
[2017-01-09] MEDS: ASPIRIN 81 MG TABLET, CHEWABLE PEG SCH (10:12)
[2017-01-09] MEDS: MULTIVITS W-MIN/IRON SOLN 60 ML PEG SCH (10:13)
[2017-01-09] MEDS: DOXYCYCLINE HYCLATE 100 MG TABLET PO SCH ×2 (11:31→21:29)
[2017-01-09] MEDS: DOCUSATE SODIUM 100 MG CAPSULE PO SCH ×2 (11:32→18:35)
--- NOTE | 2017-01-09 15:24 | PROGRESS NOTE E ---
Progress Note NAME: SEUN TOTH : 1940 AGE: 76Y DATE: 01/09/2017 ROOM: 306 The wound on the left forearm is clean and dry. He will need continued Silvadene dressings b.i.d. Since the wound looks to be improving, will sign off following the patient. However, if the wound changes for the worse, then you can call us back. DICTATING PHYSICIAN: SAMIRA BAIG M.D. [id number] PHY#: [id number] ID: [id number] JOB#: [id number] ACCT: [id number] cc: >
[2017-01-09] MEDS: SILVER SULFADIAZINE 1% CREAM 25 GM TP SCH (16:38)
[2017-01-09] MEDS: CEFTRIAXONE 1 GM/D5W RTU 1 GM/50 ML RTUPB IV SCH (17:48)
--- NOTE | 2017-01-09 21:04 | PROGRESS NOTE E ---
Progress Note NAME: SEUN TOTH : 1940 AGE: 76Y DATE: 01/09/2017 ROOM: 306 SUBJECTIVE: The patient remains to be confused and aphasic but appears to be comfortable. He is lying down flat. He has no orthopnea. There is no leg edema. There no arrhythmia seen on the monitor. OBJECTIVE: GENERAL: The patient is well built and well nourished in no acute distress. VITAL SIGNS: He is afebrile with a temperature of 98.3 degrees Fahrenheit orally, pulse is 73 beats per minute, blood pressure is 143/82, respirations are 16 per minute, O2 sats are 100% on room air. HEENT: Head is normocephalic, atraumatic. Eyes: Pupils are equal, round, and reactive to light and accommodation. Extraocular movements are normal. There is no conjunctival pallor. There is no scleral icterus. ENT is negative. NECK: Supple. There is no JVD. Carotids are equal. There is no bruit. There is no lymphadenopathy. There is no goiter. LUNGS: Clear to auscultation and percussion. There are no rales of CHF. There are no rhonchi, rales or wheezing. HEART: S1 and S2 are heard. There is no S3 gallop. There is no S4 gallop. There is a systolic murmur in the left sternal border and the apex. There is no rub. ABDOMEN: Soft with PEG tube in situ. There is no hepatosplenomegaly. Bowel sounds are well heard. There is no tender areas or masses. EXTREMITIES: There is a scar of vascular surgery present in the left groin. There is left BKA. There is no pedal edema. There are no femoral bruits. Femoral's are very much diminished. Leg pulses are diminished. There is no cyanosis or clubbing. There is no DVT or cellulitis. CENTRAL NERVOUS SYSTEM: The patient is conscious, awake but confused and has mild left-sided weakness. PSYCHIATRIC: The patient does not appear to be agitated. DIAGNOSTIC DATA: The patient's 24-hour intake is 725 mL, output is 1950 mL. IMPRESSION: 1. NON-ST ELEVATION OR. No anginal symptoms. The patient is on nitrates and Coreg. 2. STATUS POST SEPTIC SHOCK. At present, blood pressure normal and able to start anti-CAD and anti-cardiomyopathy medication. 3. ACUTE RENAL FAILURE. Resolved. GFR is normal. 4. LEFT LOWER LOBE PNEUMONIA. There seems to be a new infiltrate in the left base but currently patient appears to be much improved. 5. 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 6. HISTORY OF PEG TUBE DUE TO DYSPHAGIA, PATIENT BEING FED THROUGH THIS. 7. CORONARY ARTERY DISEASE. At present, there is evidence of [id number] OR but the patient is stable. The patient appears to be comfortable but is unable to give a history. 8. ABNORMAL EKG. 9. PAST HISTORY OF OR BY STRESS TESTING IN THE PAST AND HISTORY OF STENT IN THE LAD AND HISTORY OF MID-LAD OCCLUSION. 10. CARDIOMYOPATHY WITH LV EJECTION FRACTION OF 40% BY RECENT ECHO. 11. HISTORY OF HYPERTENSION. Blood pressure is well controlled. Note that the patient's hypotension and septic shock have resolved. 12. DIABETES MELLITUS, NON-INSULIN DEPENDENT, TYPE 2. 13. HYPERLIPIDEMIA. 14. PERIPHERAL VASCULAR DISEASE WITH HISTORY OF LEFT BKA. 15. AUTOMATIC IMPLANTABLE CARDIOVERTER DEFIBRILLATOR, NO FIRING OF THIS DEFIBRILLATOR. 16. ELEVATED TROPONIN-I WHICH HAS TRENDED DOWN. 17. HYPERNATREMIA. 18. HYPOKALEMIA. This has been corrected. RECOMMENDATIONS: Note, the patient's *------* has been increased to combat hypernatremia. The patient has received potassium supplements for potassium. No recent labs. Continue the patient on atorvastatin for his hyperlipidemia. Continue Coreg at 12.5 mg p.o. via the PEG tube q. 12 hours. Continue aspirin and Plavix. Continue nitrates and Losartan. Continue spironolactone. Note that the patient is stable. The patient is not a candidate for any aggressive cardiovascular treatment which includes stress testing or cardiac catheterization in view of the patient's dementia, confusion, and overall general status. Will manage with medical therapy. Will increase the patient's Coreg to 25 mg p.o. q. 12 hours and continue the patient on ARB and nitrates. Continue aspirin and Plavix. Continue statin. Note that the patient is stable. Will sign off on the case. The patient will follow up with me in the office as an outpatient. Discussed with the hospitalist taking care of the patient. TIME SPENT: Thirty minutes spent on this patient with more than 50% of the time spent on direct patient care, review of the patient's medications, adjustment of the patient's medications, and also discussions with the other caregiving providers on the case. Note that this case involves highly complex medical decision making. Will follow the patient as an outpatient and signing off. Thanking you. DICTATING PHYSICIAN: SARY KENNEDY M.D. [id number] PHY#: [id number] ID: [id number] JOB#: [id number] ACCT: [id number] cc: >
[2017-01-09] MEDS: NITROGLYCERIN 5 MG (0.2 MG/HR) PATCH.TD24 TD SCH (21:28)
[2017-01-09] MEDS: ATORVASTATIN CALCIUM 10 MG TABLET PEG SCH (21:29)
[2017-01-09] MEDS: NORMAL SALINE INJ/PF 0.9% 10 ML SDV IV PRN (21:30)
[2017-01-09] MEDS: LATANOPROST 0.005% OPH SOLN 2.5 ML OD SCH (21:31)
[2017-01-10] MEDS: INSULIN LISPRO 100 UNIT/ML 3 ML VIAL SUBCUT PRN ×2 (00:50→06:27)
[2017-01-10] MEDS: IPRATROPIUM/ALBUTEROL 0.5-2.5 MG/3 ML AMPUL NEB SCH ×3 (01:29→14:16)
[2017-01-10 04:44] LABS: ANION GAP 5 (5-19); BLOOD UREA NITROGEN 22 mg/dL (7-20); CALCIUM 8.3 mg/dL (8.4-10.2); CARBON DIOXIDE 31 mmol/L (22-30); CHLORIDE 120 mmol/L (98-107); CREATININE RESULT 0.76 mg/dL (0.52-1.25); GLUCOSE 218 mg/dL (75-110); POTASSIUM 3.6 mmol/L (3.6-5.0); SODIUM 155.6 mmol/L (137-145)
[2017-01-10] MEDS: HEPARIN SOD (PORCINE) 5,000 UNIT/ML 1 ML SYRINGE SUBCUT SCH ×2 (05:12→14:34)
[2017-01-10 09:44] VITALS: BP 125/57
[2017-01-10] MEDS: POLYETHYLENE GLYCOL 3350 POWDER 17 GM/1 PACKET PO SCH (10:08)
[2017-01-10] MEDS: LOSARTAN POTASSIUM 25 MG TABLET PO SCH (10:10)
[2017-01-10] MEDS: DOCUSATE SODIUM 100 MG CAPSULE PO SCH (10:12)
[2017-01-10] MEDS: DOXYCYCLINE HYCLATE 100 MG TABLET PO SCH (10:12)
[2017-01-10] MEDS: SPIRONOLACTONE 25 MG TABLET PO SCH (10:13)
[2017-01-10] MEDS: CLOPIDOGREL BISULFATE 75 MG TABLET PEG SCH (10:13)
[2017-01-10] MEDS: ASPIRIN 81 MG TABLET, CHEWABLE PEG SCH (10:13)
[2017-01-10] MEDS: FOLIC ACID 1 MG TABLET PEG SCH (10:14)
[2017-01-10] MEDS: CARVEDILOL 6.25 MG TABLET PEG SCH (10:15)
[2017-01-10] MEDS: MULTIVITS W-MIN/IRON SOLN 60 ML PEG SCH (10:19)
[2017-01-10] MEDS: FERROUS SULFATE LIQUID 300 MG/5 ML UDC PEG SCH (10:19)
--- NOTE | 2017-01-10 10:33 | PDOC TRANSFER SUMMARY ---
General - Admit/Disc Date/PCP Admission Date/Primary Care Provider: 01/04/17 02:49 Discharge Date: 01/10/17 - Discharge Diagnosis (1) Severe sepsis with septic shock Is this a current diagnosis for this admission?: Yes (2) UTI (urinary tract infection) due to urinary indwelling Catalan catheter Is this a current diagnosis for this admission?: Yes (3) Acute kidney injury Is this a current diagnosis for this admission?: Yes (4) Acute on chronic combined systolic (congestive) and diastolic (congestive) heart failure Is this a current diagnosis for this admission?: Yes (5) Left lower lobe pneumonia Is this a current diagnosis for this admission?: Yes (6) NSTEMI (non-ST elevated myocardial infarction) Is this a current diagnosis for this admission?: Yes (7) Anemia Is this a current diagnosis for this admission?: Yes (8) Fecal impaction Is this a current diagnosis for this admission?: Yes (9) Laceration of penis Is this a current diagnosis for this admission?: Yes (11) Diabetes Is this a current diagnosis for this admission?: Yes (12) Dyslipidemia Is this a current diagnosis for this admission?: Yes (13) Peripheral vascular disease Is this a current diagnosis for this admission?: Yes (14) CAD (coronary artery disease) Is this a current diagnosis for this admission?: Yes (15) HTN (hypertension) Is this a current diagnosis for this admission?: Yes - Additional Information Resuscitation Status: Full Code Discharge Diet: Tube Feeding (Comments) - Glucerna 1.2 at 80 mL/h, flush G-tube with 150 mL of water every 4 hours., Other (Comments) - N.p.o. Discharge Activity: Activity As Tolerated, Balance Activity w/Rest Home Medications: Acetaminophen [Tylenol 325 mg Tablet] 650 mg PEG Q6HP PRN 01/04/17 Aspirin [Aspirin 81 mg Chewable Tablet] 81 mg PEG DAILY 01/04/17 Atorvastatin Calcium [Lipitor 10 mg Tablet] 10 mg PEG DAILY 01/04/17 Clopidogrel Bisulfate [Clopidogrel] 75 mg PEG DAILY 01/04/17 Doxazosin Mesylate [Cardura 2 mg Tablet] 2 mg PEG DAILY 01/04/17 Finasteride [Proscar 5 mg Tablet] 5 mg PEG DAILY 01/04/17 Folic Acid 1 mg PEG DAILY 01/04/17 Latanoprost [Xalatan 0.005% Oph Soln 2.5 ml] 1 drop OD QHS 01/04/17 Metformin HCl [Glucophage] 500 mg PEG BID 01/04/17 Multivits W-Min/Ferrous Gluc [Centrum Multivit-Mineral Liq] 9 mg PEG DAILY 01/04 Travoprost (Benzalkonium) [Travatan 0.004% Eye Drop] 5 ml OD QHS 01/04/17 Amox Tr/Potassium Clavulanate [Augmentin Es 600 mg-42.9 mg/5 ml Susp] 10 ml PEG Q12H #1 bottle 01/10/17 Carvedilol [Coreg 6.25 mg Tablet] 25 mg PEG Q12 tablet 01/10/17 Ferrous Sulfate [Ferrous Sulfate Liquid 300 mg/5 ml Udcup] 300 mg PEG BID udc 01/10/17 Losartan Potassium [Cozaar 25 mg Tablet] 50 mg PO Q12 tablet 01/10/17 Nitroglycerin [Nitro-Dur 5 mg (0.2 mg/Hr) Transdermal Patch] 1 each TD QHS patch.td24 01/10/17 Polyethylene Glycol 3350 [Miralax Powder 17 gm/Packet] 17 gm PO DAILY powd.pack 01/10/17 Silver Sulfadiazine [Silvadene 1% Cream 25 gm] 1 applic TP DAILY@1600 tube 07/29 Spironolactone [Aldactone 25 mg Tablet] 25 mg PO DAILY tablet 01/10/17 Additional Information: Antibiotic to complete for a total of 1 week History of Present Illness Admission Date/PCP: 01/04/17 02:49 Patient complains of: Hypotension History of Present Illness: SEUN TOTH is a 76 year old male who is a long-term [facility] resident with a past medical history of CVA resulting in dysphasia requiring PEG tube, aphasia, dementia, diabetes, left BKA, peripheral vascular disease and chronic indwelling Catalan. He presents to the emergency room after the nursing facility finds pyuria from Catalan without urine output and hypotension. In the emergency room is found to have sepsis with hypotension tachycardia and fever, leukocytosis, acute renal failure Catalan catheter with obstruction from pyuria and left lower lobe pneumonia. He is unable to provide any history he is chronically ill-and toxic appearing with cachexia and temporal wasting is referred to the hospitalist for admission. For details please refer to history and physical examination performed by the admitting physician. Hospital Course Hospital Course: The patient was admitted to the intensive care unit. The patient was given intravenous fluids and vasopressors. Blood pressure eventually stabilized. Patient was placed on broad-spectrum antibiotic including cefepime and vancomycin. Cultures were performed and blood culture revealed E. coli. Urine culture revealed E. coli as well and enterococcus. The enterococcus is sensitive to penicillin. Course was noted for abnormal troponins likely related to hypotension, cardiology was consulted and the patient had an echocardiogram showing low ejection fraction. Course was also noted for extravasation on vasopressor on the patient's upper extremity causing rash and blister formation. Surgery was consulted this was treated with local care and application of Silvadene cream. The patient eventually improved. Blood pressure normalized and the patient vasopressors were discontinued. He was eventually transferred to the stepdown unit. Patient was begun on tube feedings. He was started on Aldactone by cardiology service as well as continuing his Coreg and starting ARB as well. In terms of antibiotic coverage the vancomycin was discontinued and the patient was placed on doxycycline. Cefepime was changed to ceftriaxone based on sensitivity. The patient continues to improve. Course was noted for hyponatremia with the hourly associate recommended changing tube feedings and the patient's free water was increased to the feeding tube. Course was also noted for constipation where the patient was placed on laxatives and eventually had good bowel movement. The rest of the hospital stay was essentially unremarkable. Patient was eventually transferred back to the correction improved. Physical Exam Vital Signs: Temp Pulse Resp BP Pulse Ox 98.2 F 73 16 125/57 L 100 01/10/17 07:23 01/10/17 07:23 01/10/17 07:23 01/10/17 07:23 01/10/17 07:23 Intake & Output 01/09/17 01/10/17 01/11/17 06:59 06:59 06:59 Intake Total 725 1581 Output Total 6019 5905 Balance -1225 -344 Weight 90.6 kg 90.6 kg General appearance: PRESENT: no acute distress, cooperative Head exam: PRESENT: normocephalic Eye exam: PRESENT: EOMI Mouth exam: PRESENT: moist, neck supple Neck exam: ABSENT: JVD Respiratory exam: PRESENT: clear to auscultation joaquin. ABSENT: rhonchi, wheezes Cardiovascular exam: PRESENT: RRR. ABSENT: gallop GI/Abdominal exam: PRESENT: hypoactive bowel sounds, soft. ABSENT: distended Extremities exam: PRESENT: pedal edema - Trace on the right, below knee amputation on the left Neurological exam: PRESENT: alert, awake Psychiatric exam: ABSENT: agitated Focused psych exam: ABSENT: restlessness Skin exam: PRESENT: dry, warm, other - Blister and desquamation on left upper extremity stable without purulent drainage or surrounding redness.. ABSENT: cyanosis Results Laboratory Results: 01/07/17 04:05 01/10/17 04:05 01/10/17 04:05 Sodium 155.6 H Potassium 3.6 Chloride 120 H Carbon Dioxide 31 H Anion Gap 5 BUN 22 H Creatinine 0.76 Est GFR ( Amer) > 60 Est GFR (Non-Af Amer) > 60 Glucose 218 H Calcium 8.3 L 01/04/17 01/04/17 01/04/17 06:39 06:39 12:00 Creatine Kinase 261 H 244 H CK-MB (CK-2) 3.50 Troponin I 1.080 01/04/17 01/05/17 01/07/17 12:30 11:10 04:05 Creatine Kinase CK-MB (CK-2) 3.79 Troponin I 0.905 0.731 0.395 Impressions: Venous Doppler Study 01/05/17 00:00 IMPRESSION: NO EVIDENCE DVT OR SVT LEFT ARM. KUB X-Ray 01/07/17 00:00 IMPRESSION: Constipation Chest X-Ray 01/08/17 06:00 IMPRESSION: New left basilar airspace disease, atelectasis versus pneumonia. Transfer Plan - Disposition Transfer Plan: Patient will go back to [facility] for continued long-term care. Patient will be followed by the physician at [facility]. - Time Spent with Patient Time spent with patient: Less than 30 Minutes Qualifiers PATEINT BEING DISCHARGED WITH ANY OF THE FOLLOWING DIAGNOSIS?: [place] Pt being discharged on Aspirin therapy?: Yes [place] Pt being discharged on Statins?: Yes [place] Pt discharged ACEI/ARBS?: Yes Plan Discharge Plan: Follow-up with primary care physician in 1 week Time Spent: Less than 30 Minutes
== END 2017-01-10 15:22 | DRG 871 ==
LOC: ER 00:56 → EH 02:49 → UNDOADMIN 02:55 → EH 02:55 → ICU 04:25 → 3N 01-07 03:39
PROVIDERS: ADMIT Internal Medicine; ATTEND Internal Medicine
PROC: 02H633Z Insertion of Infusion Device into Right Atrium, Percutaneous Approach (ICD-10-PCS; principal; 2017-01-04)
PROC: B244ZZZ Ultrasonography of Right Heart (ICD-10-PCS; 2017-01-04)
DX: A41.51 Sepsis due to Escherichia coli [E. coli] (principal); R65.21 Severe sepsis with septic shock; I50.43 Acute on chronic combined systolic (congestive) and diastolic (congestive) heart failure; J18.1 Lobar pneumonia, unspecified organism; I21.4 Non-ST elevation (NSTEMI) myocardial infarction; N17.0 Acute kidney failure with tubular necrosis; E44.0 Moderate protein-calorie malnutrition; T83.511A Infection and inflammatory reaction due to indwelling urethral catheter, initial encounter; N39.0 Urinary tract infection, site not specified; I42.9 Cardiomyopathy, unspecified; B96.20 Unspecified Escherichia coli [E. coli] as the cause of diseases classified elsewhere; E86.0 Dehydration; D64.9 Anemia, unspecified; K56.41 Fecal impaction; S31.21XD Laceration without foreign body of penis, subsequent encounter; E78.5 Hyperlipidemia, unspecified; I73.9 Peripheral vascular disease, unspecified; I25.10 Atherosclerotic heart disease of native coronary artery without angina pectoris; I10 Essential (primary) hypertension; F03.90 Unspecified dementia, unspecified severity, without behavioral disturbance, psychotic disturbance, mood disturbance, and anxiety; E11.9 Type 2 diabetes mellitus without complications; Z79.899 Other long term (current) drug therapy; Z79.82 Long term (current) use of aspirin; Z79.84 Long term (current) use of oral hypoglycemic drugs; Z93.1 Gastrostomy status; I69.321 Dysphasia following cerebral infarction; I69.320 Aphasia following cerebral infarction; Z89.512 Acquired absence of left leg below knee; Z95.5 Presence of coronary angioplasty implant and graft; I25.2 Old myocardial infarction; Z95.810 Presence of automatic (implantable) cardiac defibrillator; Z68.25 Body mass index [BMI] 25.0-25.9, adult
CPT/HCPCS: 36415; 51702; 71010; 74000; 80048; 80053; 80202; 81001; 82550; 82553; 82607; 82728; 82746; 82803; 82962; 83540; 83550; 83605; 83615; 83735; 84100; 84134; 84466; 84484; 85025; 85045; 85362; 85384; 85610; 85730; 87040; 87077; 87086; 87088; 87186; 87493; 93005; 93010; 93306; 93971; 94640; 96365; 96368; 96372; 99291; C1751; G8996-GN; G8997-GN; G8998-GN; J0692; J0696; J1642; J1644; J1756; J1815; J1940; J1956; J2270; J2370; J3370; J3430; J3480; J3490; J7030; J7040; J7060; J7120; J7620; S0028

== ENCOUNTER 2017-01-23 20:02 | Emergency (ER) | payer MEDICARE, MEDICAID ==
--- NOTE | 2017-01-23 21:43 | ER Document Report ---
ED GI/ - General Chief Complaint: Problem with Urinary Catheter Stated Complaint: OTHER Time Seen by Provider: 01/23/17 20:07 Notes: Patient is a 76-year-old male, chronic indwelling Catalan, presents from [facility] after he was unable to void out of his Catalan catheter today. The Catalan was irrigated unsuccessfully and was sent to the emergency room for further treatment options. Denies fevers, nausea, vomiting, flank pain or hematuria. TRAVEL OUTSIDE OF THE [place] IN LAST 30 DAYS: No - Related Data Allergies/Adverse Reactions: No Known Allergies Allergy (Verified 09/20/16 21:14) Past Medical History - General Information source: Patient, Transfer Record - Social History Smoking Status: Unknown if Ever Smoked Family History: None, Reviewed & Not Pertinent, Other - Unobtainable - Past Medical History Cardiac Medical History: Reports: Hx Coronary Artery Disease - stent x 1, Hx Heart Attack - 2003, Hx Hypercholesterolemia, Hx Hypertension, Hx Peripheral Vascular Disease Pulmonary Medical History: Reports: Hx Asthma - as child Denies: Hx Bronchitis, Hx COPD, Hx Pneumonia, Hx Tuberculosis Neurological Medical History: Denies: Hx Cerebrovascular Accident, Hx Seizures Endocrine Medical History: Reports: Hx Diabetes Mellitus Type 2 Renal/ Medical History: Reports: Hx Benign Prostatic Hyperplasia. Denies: Hx Peritoneal Dialysis GI Medical History: Denies: Hx Hepatitis, Hx Hiatal Hernia, Hx Ulcer Musculoskeltal Medical History: Denies Hx Arthritis Psychiatric Medical History: Reports: Hx Dementia Denies: Hx Anxiety, Hx Attention Deficit Hyperactivity Disorder, Hx Bipolar Disorder, Hx Borderline Personality Disorder, Hx Depression, Hx Obsessive Compulsive Disorder, Hx Personality Disorder, Hx Schizoaffective Disorder, Hx Schizophrenia Traumatic Medical History: Denies: Hx Fractures, Hx Gunshot Wound, Hx Liver Laceration, Hx Pneumothorax, Hx Spine Fracture, Hx Spleen Laceration/Rupture, Hx Traumatic Brain Injury Infectious Medical History: Denies: Hx Hepatitis Past Surgical History: Reports: Hx Abdominal Surgery, Hx Cardiac Surgery - defibrillator, Hx Internal Defibrillator, Hx Orthopedic Surgery - left BKA, Hx Vascular Surgery - left groin. Denies: Hx Open Heart Surgery - Immunizations Hx Diphtheria, Pertussis, Tetanus Vaccination: No Review of Systems - Review of Systems Notes: REVIEW OF SYSTEMS: CONSTITUTIONAL: -fevers, -chills EENT: -eye pain, -difficulty swallowing, -nasal congestion CARDIOVASCULAR:-chest pain, -syncope. RESPIRATORY: -cough, -SOB GASTROINTESTINAL: -abdominal pain, - nausea, -vomiting, -diarrhea GENITOURINARY: -dysuria, -hematuria MUSCULOSKELETAL: -back pain, -neck pain SKIN: -rash or skin lesions. HEMATOLOGIC: -easy bruising or bleeding. LYMPHATIC: -swollen, enlarged glands. NEUROLOGICAL: -altered mental status or loss of consciousness, -headache, - neurologic symptoms PSYCHIATRIC: -anxiety, -depression. ALL OTHER SYSTEMS REVIEWED AND NEGATIVE. Physical Exam - Vital signs Vitals: Temp Pulse Resp BP Pulse Ox 98.4 F 72 18 106/67 95 01/23/17 20:35 01/23/17 20:35 01/23/17 20:35 01/23/17 20:35 01/23/17 20:35 - Notes Notes: PHYSICAL EXAMINATION: GENERAL: Well-appearing, well-nourished and in no acute distress. HEAD: Atraumatic, normocephalic. EYES: Pupils equal round and reactive to light, extraocular movements intact, sclera anicteric, conjunctiva are normal. ENT: nares patent, oropharynx clear without exudates. Moist mucous membranes. NECK: Normal range of motion, supple without lymphadenopathy LUNGS: Breath sounds clear to auscultation bilaterally and equal. No wheezes rales or rhonchi. HEART: Regular rate and rhythm without murmurs ABDOMEN: Soft, nontender, normoactive bowel sounds. No guarding, no rebound. No masses appreciated. Catalan in place without any urine output. EXTREMITIES: Normal range of motion, no pitting or edema. No cyanosis. NEUROLOGICAL: Cranial nerves grossly intact. Normal speech, normal gait. Normal sensory and motor exams. PSYCH: Normal mood, normal affect. SKIN: Warm, Dry, normal turgor, no rashes or lesions noted. Course - Re-evaluation Re-evalutation: Catalan successfully changed with output of yellow urine. No fevers to suggest UTI. Will discharge patient back to the alf with return precautions. - Vital Signs Vital signs: Temp Pulse Resp BP Pulse Ox 98.4 F 72 18 106/67 95 01/23/17 20:35 01/23/17 20:35 01/23/17 20:35 01/23/17 20:35 01/23/17 20:35 Discharge - Discharge Clinical Impression: Urinary catheter dysfunction Qualifiers: Encounter type: initial encounter Qualified Code(s): T83.018A - Breakdown ( mechanical) of other urinary catheter, initial encounter Condition: Good Disposition: [facility] Additional Instructions: Your Catalan catheter was changed today.
[2017-01-23 23:54] VITALS: BP 113/51
== END 2017-01-23 23:58 ==
LOC: ER 20:02
DX: T83.018A Breakdown (mechanical) of other urinary catheter, initial encounter (principal); I25.10 Atherosclerotic heart disease of native coronary artery without angina pectoris; I25.2 Old myocardial infarction; E78.00 Pure hypercholesterolemia, unspecified; I10 Essential (primary) hypertension; E11.9 Type 2 diabetes mellitus without complications; N40.0 Benign prostatic hyperplasia without lower urinary tract symptoms; F03.90 Unspecified dementia, unspecified severity, without behavioral disturbance, psychotic disturbance, mood disturbance, and anxiety; Z95.810 Presence of automatic (implantable) cardiac defibrillator; Z89.512 Acquired absence of left leg below knee
CPT/HCPCS: 51702; 99284

== ENCOUNTER 2017-01-30 17:08 | Emergency (ER) | payer MEDICARE, MEDICAID ==
[2017-01-30 19:34] LABS: ABSOLUTE EOSINOPHILS # (AUTO) 0.4 10^3/uL (0.0-0.6); ABSOLUTE LYMPHOCYTES (AUTO) 1.1 10^3/uL (0.5-4.7); ABSOLUTE MONOCYTES (AUTO) 0.6 10^3/uL (0.1-1.4); ABSOLUTE NEUT (AUTO) 9.3 10^3/uL (1.7-8.2); BASOPHILS % (AUTO) 0.3 % (0-2); EOSINOPHILS % (AUTO) 3.3 % (0-6); HEMATOCRIT 30.5 % (37.9-51.0); HEMOGLOBIN 9.4 g/dL (13.5-17.0); HGB HCT DIFFERENCE -2.3; LYMPHOCYTES % (AUTO) 9.9 % (13-45); MEAN CORPUSCULAR HGB CONC 30.9 g/dL (32.0-36.0); MEAN CORPUSCULAR VOLUME 78 fl (80-97); RED BLOOD COUNT 3.94 10^6/uL (4.35-5.55); RED CELL DISTRIBUTION WIDTH 20.5 % (11.5-14.0); SEGMENTED NEUTROPHILS % (AUTO) 81.5 % (42-78); WHITE BLOOD COUNT 11.4 10^3/uL (4.0-10.5)
[2017-01-30 19:50] LABS: APPEARANCE,URINE CLOUDY; BILIRUBIN,URINE NEGATIVE (NEGATIVE); GLUCOSE, URINE NEGATIVE (NEGATIVE); KETONES,URINE NEGATIVE (NEGATIVE); LEUKOCYTE ESTERASE,URINE SMALL (NEGATIVE); NITRITE,URINE NEGATIVE (NEGATIVE); PROTEIN,URINE 30 mg/dL (NEGATIVE)
--- NOTE | 2017-01-30 19:50 | ER Document Report ---
ED GI/ - General Chief Complaint: Abdominal Pain Stated Complaint: ABDOMINAL PAIN Time Seen by Provider: 01/30/17 19:07 Mode of Arrival: Medic Information source: Emergency Med Personnel, [facility] Records, Outside Facility Records Cannot obtain history due to: Dementia Notes: 76-year-old male presents to ED via EMS from [place] for left lower quadrant abdominal pain tenderness upon palpation. Patient is aphasic and dementia which is his baseline. TRAVEL OUTSIDE OF THE [place] IN LAST 30 DAYS: No - HPI Patient complains to provider of: Abdominal pain Onset: This morning Timing/Duration: Gradual Quality of pain: Other - Tender to touch unable to verbalize quality of pain Severity at maximum: Severe Severity in ED: Severe Pain Level: 5 Location: LLQ, RLQ Associated symptoms: Other - g-tube, dysphagia, aphasia, dementia Similar symptoms previously: No Recently seen / treated by doctor: Yes - Related Data Allergies/Adverse Reactions: No Known Allergies Allergy (Verified 09/20/16 21:14) Past Medical History - General Information source: Emergency Med Personnel, [facility] Records, Outside Facility Records - Social History Smoking Status: Unknown if Ever Smoked Frequency of alcohol use: None Drug Abuse: None Lives with: Long-Term Family History: None, Reviewed & Not Pertinent, Other - Unobtainable - Past Medical History Cardiac Medical History: Reports: Hx Coronary Artery Disease - stent x 1, Hx Heart Attack - 2003, Hx Hypercholesterolemia, Hx Hypertension, Hx Peripheral Vascular Disease Pulmonary Medical History: Reports: Hx Asthma - as child EENT Medical History: Reports: None Neurological Medical History: Reports: Other - Dysphagia, aphasia, dementia Endocrine Medical History: Reports: Hx Diabetes Mellitus Type 2 Renal/ Medical History: Reports: Hx Benign Prostatic Hyperplasia Malignancy Medical History: Reports None GI Medical History: Reports: Hx Gastroesophageal Reflux Disease, Other - Dysphasia Musculoskeltal Medical History: Reports Hx Arthritis, Reports Hx Musculoskeletal Deformity - BKA Skin Medical History: Reports None Psychiatric Medical History: Reports: Hx Dementia Traumatic Medical History: Reports: None Infectious Medical History: Reports: None Past Surgical History: Reports: Hx Abdominal Surgery, Hx Cardiac Surgery - defibrillator, Hx Internal Defibrillator, Hx Orthopedic Surgery - left BKA, Hx Vascular Surgery - left groin - Immunizations Hx Diphtheria, Pertussis, Tetanus Vaccination: No Review of Systems - Review of Systems Constitutional: No symptoms reported EENT: No symptoms reported Cardiovascular: No symptoms reported Respiratory: No symptoms reported Gastrointestinal: Abdominal pain - Right and left lower quadrant Genitourinary: No symptoms reported Male Genitourinary: No symptoms reported Musculoskeletal: Other - Left BKA Skin: No symptoms reported Hematologic/Lymphatic: No symptoms reported Neurological/Psychological: Dementia - Has a history of dementia and aphasia dysphasia Physical Exam - Vital signs Vitals: Temp Pulse Resp BP Pulse Ox 99.6 F 103 H 17 133/107 H 96 01/30/17 17:45 01/30/17 17:45 01/30/17 17:45 01/30/17 17:45 01/30/17 17:45 - General General appearance: Alert, Other - Dementia, In distress: Mild - HEENT Head: Normocephalic, Atraumatic Eyes: Normal Pupils: PERRL - Abdominal Inspection: Normal Distension: No distension Bowel sounds: Normal Tenderness: Tender - Right and left lower quadrant tenderness guarding Organomegaly: No organomegaly - Extremities General upper extremity: Normal inspection, Nontender, Normal color, Normal ROM , Normal temperature General lower extremity: Nontender, Normal color, Normal ROM, Normal temperature , Normal weight bearing. No: Jeremias's sign Knee: Other - DKA left - Neurological Neuro grossly intact: No - Dementia Cognition: Other - Dementia aphasia Jonathan Coma Scale Eye Opening: Spontaneous Jonathan Coma Scale Verbal: None - Aphasia Jonathan Coma Scale Motor: Localizes to Pain Jonathan Coma Scale Total: 10 Speech: Other - Aphasia Motor strength normal: LUE, RUE, RLE. No: LLE - BKA Sensory: Normal Course - Re-evaluation Re-evalutation: 01/31/17 07:43 CT showed an obstructed bladder with hydronephrosis hydroureter. Babb was repositioned patient had an output of 3000 cc of urine. Recheck of urine was done patient has a UTI with dehydration. He was treated with IV fluids and IV Cipro. He will be discharged back to the shelter with instructions to process through the G-tube and increase of fluids through the G-tube. - Vital Signs Vital signs: Temp Pulse Resp BP Pulse Ox 99.6 F 103 H 17 154/84 H 98 01/30/17 17:45 01/30/17 17:45 01/30/17 17:45 01/30/17 23:01 01/30/17 23:01 - Laboratory Result Diagrams: 01/30/17 19:20 07/21/17 19:20 Laboratory results interpreted by me: 01/30/17 01/30/17 01/30/17 19:20 19:20 19:20 WBC 11.4 H RBC 3.94 L Hgb 9.4 L Hct 30.5 L MCV 78 L MCH 24.0 L MCHC 30.9 L RDW 20.5 H Seg Neutrophils % 81.5 H Lymphocytes % 9.9 L Absolute Neutrophils 9.3 H Sodium 151.5 H Chloride 112 H BUN 37 H Glucose 207 H Total Protein 8.4 H Urine Protein 30 H Urine Blood LARGE H Urine Urobilinogen 2.0 H Ur Leukocyte Esterase SMALL H 01/31/17 05:12 WBC RBC Hgb Hct MCV MCH MCHC RDW Seg Neutrophils % Lymphocytes % Absolute Neutrophils Sodium Chloride BUN Glucose Total Protein Urine Protein 100 H Urine Blood LARGE H Urine Urobilinogen 4.0 H Ur Leukocyte Esterase MODERATE H - Diagnostic Test Radiology reviewed: Image reviewed, Reports reviewed Discharge - Discharge Clinical Impression: Dehydration, improperly placed babb UTI (urinary tract infection) due to urinary indwelling Babb catheter Qualifiers: Indwelling urinary catheter type: indwelling urethral catheter Encounter type: initial encounter Qualified Code(s): T83.511A - Infection and inflammatory reaction due to indwelling urethral catheter, initial encounter Abdominal pain Qualifiers: Abdominal location: lower abdomen, unspecified Qualified Code(s): R10.30 - Lower abdominal pain, unspecified Hydronephrosis Qualifiers: Hydronephrosis type: unspecified Qualified Code(s): N13.30 - Unspecified hydronephrosis Condition: Stable Disposition: HOME-SNF (ED ONLY) Additional Instructions: Patient will need increased amounts of fluids to his G-tube when he returns to the shelter as he was dehydrated. His Babb will also need to be more frequently as his tube was not in proper position which caused his bladder to be severely distended causing hydronephrosis and hydroureter bilaterally. 3000 cc of urine was removed from the Babb when it was properly positioned. Have him followed up by his primary doctor within the next 2-3 days. ABDOMINAL PAIN: There are many causes of abdominal pain. Pain can mean a serious problem requiring surgery (such as appendicitis). It can also be an innocent problem that goes away on its own (such as a viral infection). Often, time must pass to determine the cause of pain. The physician does not feel that hospitalization is necessary, at present. Things may change within the next 24 hours. Call the doctor or come back for re- examination if any problems occur, such as: (1) Pain that becomes more severe, steady, or becomes concentrated in one specific area. Also, pain that is more severe with movement or coughing. (2) Vomiting that persists or becomes more frequent. (3) Blood in the vomitus, urine, or bowel movements. Blood in the stool may have a tarry or black appearance. (4) Shaking chills or fever greater than 100 degrees F. (5) The abdomen becomes more distended or swollen. (6) Bowel movements cease. (7) Failure to improve as expected. URINARY TRACT INFECTION: Your evaluation indicates that you have a urinary tract infection. This is due to germs growing in the bladder. This is a common problem. This infection usually responds quickly to antibiotics. Your antibiotic should be taken exactly as prescribed. Drink plenty of fluids -- three to four quarts a day. Occasionally, a bladder anesthetic will be prescribed to help stop the feeling of urgency until the antibiotic has a chance to clear the infection. This may cause your urine to be dark orange. Certain urine infections require a culture. If the doctor obtained a culture, the results will be back in two days. You should call to see if a change in treatment is needed. A repeat urinalysis after you finish treatment is often recommended. The physician will let you know if further testing is required. Call the doctor if you develop fever, chills, flank pain, inability to urinate, or blood in the urine. Dehydration Dehydration can result from vomiting or diarrhea, fever, or decreased intake of fluids. If severe, hospitalization and intravenous fluids may be required. Most cases are treated at home with fluids by mouth. For the next 24 hours, drink lots of clear fluids. In mild cases, this can be soda pop or sports drinks. For more severe dehydration, the doctor may recommend special fluids such as Pedialyte or Lytren. Try to get three liters ( 3 quarts) of fluid per day. If vomiting occurs, continue to drink the fluids frequently (every 15 to 20 minutes), but in small amounts (one or two ounces). Depending on the type of dehydration, the doctor may prescribe antinausea medicine or potassium replacements. Call the doctor or return for re-examination if you become progressively weak, vomit repeatedly, or have other new symptoms. Intravenous (IV) Fluids As part of your care today, you received intravenous (IV) fluids. IV fluids are administered to patients who are dehydrated or to those who have certain chemical (electrolyte) abnormalities that need correcting. CIPROFLOXACIN: You have been given an antibacterial agent, ciprofloxacin (Cipro). This medicine is not related to the penicillins, sulfas, cephalosporins, or tetracyclines. It is often given to patients who are allergic to these drugs. It has been chosen for you either because other drugs are not appropriate, or because of the nature of your problem. Cipro should not be taken with antacids, as these can decrease its effectiveness. It can be taken without regard to meals. CIPRO SHOULD NOT BE TAKEN BY CHILDREN, NURSING WOMEN, OR WOMEN. Although Cipro is usually well-tolerated, common side effects can include nausea and diarrhea. Contact your doctor if you experience any unusual symptoms while on this medication, such as joint pain or swelling, shortness of breath, wheezing, faintness, or hives. FOLLOW-UP CARE: If you have been referred to a physician for follow-up care, call the physician s office for an appointment as you were instructed or within the next two days. If you experience worsening or a significant change in your symptoms, notify the physician immediately or return to the Emergency Department at any time for re-evaluation. Prescriptions: Ciprofloxacin HCl [Cipro 500 mg Tablet] 500 mg PO BID #20 tablet Forms: Elevated Blood Pressure
[2017-01-30 20:01] LABS: ALANINE AMINOTRANSFERASE 23 U/L (21-72); ALBUMIN 3.6 g/dL (3.5-5.0); ALKALINE PHOSPHATASE 87 U/L (38-126); ANION GAP 10 (5-19); ASPARTATE AMINO TRANSFERASE 23 U/L (17-59); BILIRUBIN,DIRECT 0.4 mg/dL (0.0-0.4); BILIRUBIN,TOTAL 0.8 mg/dL (0.2-1.3); BLOOD UREA NITROGEN 37 mg/dL (7-20); CALCIUM 9.8 mg/dL (8.4-10.2); CARBON DIOXIDE 30 mmol/L (22-30); CHLORIDE 112 mmol/L (98-107); CREATININE RESULT 0.86 mg/dL (0.52-1.25); GLUCOSE 207 mg/dL (75-110); POTASSIUM 4.3 mmol/L (3.6-5.0); SODIUM 151.5 mmol/L (137-145); TOTAL PROTEIN 8.4 g/dL (6.3-8.2)
--- NOTE | 2017-01-31 00:44 | RADIOLOGY REPORT (SQ) ---
EXAM DESCRIPTION: CT ABD/PELVIS WITH IV ORAL COMPLETED DATE/TIME: 01/31/2017 12:31 am REASON FOR STUDY: lower abdominal tenderness COMPARISON: 10/09/2016 TECHNIQUE: CT scan of the abdomen and pelvis performed using helical scanning technique with dynamic intravenous contrast injection. No oral contrast. Images reviewed with lung, soft tissue, and bone windows. Reconstructed coronal and sagittal MPR images reviewed. Delayed images for evaluation of the urinary system also acquired. All images stored on PACS. All CT scanners at this facility use dose modulation, iterative reconstruction, and/or weight based d osing when appropriate to reduce radiation dose to as low as reasonably achievable (ALARA). [facility]: Dose Right [facility]: CareDose [facility]: Dose Right [facility]: Teradose 4D [facility]: Acquisio CONTRAST TYPE AND DOSE: contrast/concentration: Isovue 370.00 mg/ml; Total Contrast Delivered: 100.0 ml; Total Saline Delivered: 72.0 ml RENAL FUNCTION: Creatinine 0.86 RADIATION DOSE: Up-to-date CT equipment and radiation dose reduction techniques were employed. CTDIv ol: 17.8 - 19.5 mGy. DLP: 2213 mGy-cm.. LIMITATIONS: None. FINDINGS: LOWER CHEST: Small right pleural effusion. LIVER: Small hepatic cyst/hemangiomas. SPLEEN: Normal size. No focal lesions. PANCREAS: No masses. No significant calcifications. No adjacent inflammation or peripancreatic fluid collections. Pancreatic duct not dilated. GALLBLADDER: No identified stones by CT criteria. No inflammatory changes to suggest cholecystitis. ADRENAL GLANDS: No significant masses or asymmetry. RIGHT KIDNEY AND URETER: No solid masses. No significant calcifications. Diffuse hydronephrosis a nd hydroureter. LEFT KIDNEY AND URETER: No solid masses. No significant calcifications. Diffuse hydronephrosis an d hydroureter. AORTA AND VESSELS: No aneurysm. No dissection. Renal arteries, SMA, celiac without stenosis. RETROPERITONEUM: No retroperitoneal adenopathy, hemorrhage or masses. BOWEL AND PERITONEAL CAVITY: No masses or inflammatory changes. No free fluid or peritoneal masses. APPENDIX: Normal. PELVIS: Massive bladder dilatation. Bladder extends above the level of the umbilicus. Diffusely enl arged prostate gland. ABDOMINAL WALL: No masses. No hernias. BONES: No significant or acute findings. OTHER: Diffuse right-sided chest wall muscular edema. IMPRESSION: Bladder outlet obstruction with massive dilatation of the bladder and hydronephrosis and hydroureter bilateral. Diffuse right-sided chest wall muscular edema TECHNICAL DOCUMENTATION: JOB ID: [id number] Quality ID # [id number]: Final reports with documentation of one or more dose reduction techniques (e.g., Au tomated exposure control, adjustment of the mA and/or kV according to patient size, use of iterative reconstruction technique) 2010 [employer]- All Rights Reserved
[2017-01-31 05:41] LABS: APPEARANCE,URINE TURBID; BILIRUBIN,URINE NEGATIVE (NEGATIVE); GLUCOSE, URINE NEGATIVE (NEGATIVE); KETONES,URINE NEGATIVE (NEGATIVE); LEUKOCYTE ESTERASE,URINE MODERATE (NEGATIVE); NITRITE,URINE NEGATIVE (NEGATIVE); PROTEIN,URINE 100 mg/dL (NEGATIVE); URINE SPECIFIC GRAVITY 1.029
[2017-01-31] MEDS ORDERED: NORMAL SALINE 1000 ML 1,000 ML IV ONE (06:12)
[2017-01-31] MEDS ORDERED: CIPROFLOXACIN 400 MG/D5W RTU 200 ML IV ONE (06:12)
[2017-01-31 08:40] VITALS: BP 113/78
== END 2017-01-31 08:36 ==
LOC: ER 17:08
DX: E86.0 Dehydration (principal); T83.511A Infection and inflammatory reaction due to indwelling urethral catheter, initial encounter; N39.0 Urinary tract infection, site not specified; R10.30 Lower abdominal pain, unspecified; N13.30 Unspecified hydronephrosis; Z93.1 Gastrostomy status; I25.10 Atherosclerotic heart disease of native coronary artery without angina pectoris; E78.00 Pure hypercholesterolemia, unspecified; I10 Essential (primary) hypertension; E11.9 Type 2 diabetes mellitus without complications; F03.90 Unspecified dementia, unspecified severity, without behavioral disturbance, psychotic disturbance, mood disturbance, and anxiety; R47.01 Aphasia; I25.2 Old myocardial infarction; Z89.432 Acquired absence of left foot; Z95.810 Presence of automatic (implantable) cardiac defibrillator
CPT/HCPCS: 99285; 96365; 36415; 87086; 83690; 85025; 87088; 80053; 81001; 87186; 74177; J7030; J0744

== ENCOUNTER 2017-02-04 11:26 | Emergency (ER) | payer MEDICARE, MEDICAID ==
[2017-02-04] MEDS ORDERED: CEFTRIAXONE 1 GM/D5W RTU 50 ML IV ONE (11:39)
[2017-02-04] MEDS ORDERED: NORMAL SALINE 1000 ML 1,000 ML IV ONE (11:39)
--- NOTE | 2017-02-04 12:20 | ER Document Report ---
ED Fever - General Chief Complaint: Blood in Catheter Stated Complaint: FEVER Time Seen by Provider: 02/04/17 11:36 Notes: The patient is a 76-year-old male, past medical history dementia, chronic indwelling Catalan due to BPH, presents from [facility] after he was noticed to have a fever and blood clots in his Catalan bag. He was seen in the emergency room a few days ago and started on Cipro. Looking through his urine culture from the visit a few days ago, the organism in his urine is resistant to Cipro. Patient also had hyperglycemia with a blood sugar 528 when EMS arrived. He did not receive his insulin this morning. Patient is unable to provide any additional history due to baseline dementia. TRAVEL OUTSIDE OF THE [place] IN LAST 30 DAYS: No - Related Data Allergies/Adverse Reactions: No Known Allergies Allergy (Verified 02/04/17 12:37) Past Medical History - General Information source: Emergency Med Personnel, Outside Facility Records Cannot obtain history due to: Dementia - Social History Smoking Status: Unknown if Ever Smoked Family History: None, Reviewed & Not Pertinent, Other - Unobtainable - Past Medical History Cardiac Medical History: Reports: Hx Coronary Artery Disease - stent x 1, Hx Heart Attack - 2003, Hx Hypercholesterolemia, Hx Hypertension, Hx Peripheral Vascular Disease Pulmonary Medical History: Reports: Hx Asthma - as child Denies: Hx Bronchitis, Hx COPD, Hx Pneumonia, Hx Tuberculosis Neurological Medical History: Denies: Hx Seizures Endocrine Medical History: Reports: Hx Diabetes Mellitus Type 2 Renal/ Medical History: Reports: Hx Benign Prostatic Hyperplasia GI Medical History: Reports: Hx Gastroesophageal Reflux Disease. Denies: Hx Hiatal Hernia, Hx Ulcer Musculoskeltal Medical History: Reports Hx Arthritis, Reports Hx Musculoskeletal Deformity - BKA Psychiatric Medical History: Reports: Hx Dementia Denies: Hx Attention Deficit Hyperactivity Disorder, Hx Bipolar Disorder, Hx Depression, Hx Schizophrenia Past Surgical History: Reports: Hx Abdominal Surgery, Hx Cardiac Surgery - defibrillator, Hx Internal Defibrillator, Hx Orthopedic Surgery - left BKA, Hx Vascular Surgery - left groin. Denies: Hx Open Heart Surgery - Immunizations Hx Diphtheria, Pertussis, Tetanus Vaccination: No Review of Systems - Review of Systems -: Yes ROS unobtainable due to patient's medical condition - Dementia Physical Exam - Vital signs Vitals: Resp Pulse Ox 17 98 02/04/17 11:43 02/04/17 11:43 - Notes Notes: PHYSICAL EXAMINATION: GENERAL: Well-appearing, well-nourished and in no acute distress. HEAD: Atraumatic, normocephalic. EYES: Pupils equal round and reactive to light, extraocular movements intact, sclera anicteric, conjunctiva are normal. ENT: nares patent, oropharynx clear without exudates. Moist mucous membranes. NECK: Normal range of motion, supple without lymphadenopathy LUNGS: Breath sounds clear to auscultation bilaterally and equal. No wheezes rales or rhonchi. HEART: Regular rate and rhythm without murmurs ABDOMEN: Soft, nontender, normoactive bowel sounds. No guarding, no rebound. No masses appreciated. Catalan in place with blood clots in bag. EXTREMITIES: No pitting or edema. No cyanosis. Left BKA., no signs of infection. NEUROLOGICAL: alert, moving all 4 extremities SKIN: Warm, Dry, normal turgor, no rashes or lesions noted. Small area of superficial skin breakdown at left upper buttock. Course - Re-evaluation Re-evalutation: Patient with hyperglycemia on arrival. He did not receive his insulin today. Based on his sliding scale, 12 units insulin were provided to patient with improvement of his hyperglycemia. Patient with evidence of UTI. Looking through old culture results, will begin patient on Keflex for possible pyelonephritis. His Catalan catheter was changed while in the emergency room because it was clogged. He had 3 L of urine return from his catheter after the Catalan was replaced. Pt appears at baseline his vitals have remained stable. He is safe to go back to the [facility] with Keflex with strict return precautions. - Vital Signs Vital signs: Temp Pulse Resp BP Pulse Ox 20 155/82 H 95 02/04/17 13:01 02/04/17 13:01 02/04/17 13:01 - Laboratory Result Diagrams: 02/04/17 12:15 02/04/17 12:15 Laboratory results interpreted by me: 02/04/17 02/04/17 02/04/17 11:30 12:15 12:15 RBC 3.62 L Hgb 8.8 L Hct 27.9 L MCV 77 L MCH 24.2 L MCHC 31.5 L RDW 21.5 H Seg Neutrophils % 81.8 H Lymphocytes % 9.8 L Absolute Neutrophils 8.6 H Sodium 158.7 H Chloride 114 H Carbon Dioxide 34 H BUN 64 H Glucose 438 H* POC Glucose 402 H* Direct Bilirubin 0.5 H ALT 17 L Albumin 3.3 L Urine Protein Urine Glucose (UA) Urine Blood Ur Leukocyte Esterase 02/04/17 02/04/17 13:27 13:55 RBC Hgb Hct MCV MCH MCHC RDW Seg Neutrophils % Lymphocytes % Absolute Neutrophils Sodium Chloride Carbon Dioxide BUN Glucose POC Glucose 349 H Direct Bilirubin ALT Albumin Urine Protein >=500 H Urine Glucose (UA) 50 H Urine Blood MODERATE H Ur Leukocyte Esterase TRACE H Discharge - Discharge Clinical Impression: Hyperglycemia UTI (urinary tract infection) Qualifiers: Urinary tract infection type: site unspecified Hematuria presence: with hematuria Qualified Code(s): N39.0 - Urinary tract infection, site not specified Catalan catheter problem Qualifiers: Encounter type: initial encounter Qualified Code(s): T83.9XXA - Unspecified complication of genitourinary prosthetic device, implant and graft, initial encounter Condition: Stable Additional Instructions: Your Catalan catheter was changed today because it was clogged. Begin taking the Keflex to help with your urinary tract infection and kidney infection. Do not take the Cipro anymore. You were provided with sliding scale insulin due to your hyperglycemia today. Follow-up with urology for possible suprapubic catheter. URINARY TRACT INFECTION: Your evaluation indicates that you have a urinary tract infection. This is due to germs growing in the bladder. This is a common problem. This infection usually responds quickly to antibiotics. Your antibiotic should be taken exactly as prescribed. Drink plenty of fluids -- three to four quarts a day. Occasionally, a bladder anesthetic will be prescribed to help stop the feeling of urgency until the antibiotic has a chance to clear the infection. This may cause your urine to be dark orange. Certain urine infections require a culture. If the doctor obtained a culture, the results will be back in two days. You should call to see if a change in treatment is needed. A repeat urinalysis after you finish treatment is often recommended. The physician will let you know if further testing is required. Call the doctor if you develop fever, chills, flank pain, inability to urinate, or blood in the urine. ANTIBIOTIC THERAPY: You have been given an antibiotic prescription. It's important that you take all the medication, unless instructed otherwise by your physician. Failure to complete the entire course can result in relapse of your condition. Common side effects of antibiotics include nausea, intestinal cramping, or diarrhea. Women may develop vaginal yeast infections, and babies can get yeast (thrush) in the mouth following the use of antibiotics. Contact your physician if you develop significant side effects from this medication. Allergy to this antibiotic can result in hives, wheezing, faintness, or itching. If symptoms of allergy occur, stop the medication and call the doctor. CEPHALEXIN: The antibiotic you've been prescribed is a member of the cephalosporin class. This type of antibiotic covers a wide variety of infections, including those of the skin, lungs, and urinary tract. It's useful for staph infections. This antibiotic is slightly similar to the penicillin family. In rare cases , a person who is allergic to penicillin will also be allergic to this medication. If you have had a severe allergic reaction to penicillin, and have not taken this antibiotic since that time, notify your doctor. Antibiotics which cover many germs ("broad spectrum" antibiotics) are more likely to cause diarrhea or "yeast" infections. Women prone to vaginal yeast problems may suffer an attack after taking this antibiotic. In infants, oral thrush (white spots "stuck" on the cheek) or yeast diaper rash may result. See your doctor if these problems occur. Call at once if you develop itching, hives , shortness of breath, or lightheadedness. FOLLOW-UP CARE: If you have been referred to a physician for follow-up care, call the physician s office for an appointment as you were instructed or within the next two days. If you experience worsening or a significant change in your symptoms, notify the physician immediately or return to the Emergency Department at any time for re-evaluation. Prescriptions: Cephalexin Monohydrate [Keflex 250 mg/5 ml Susp] 500 mg PEG Q8H 10 Days Referrals: CHAD HILLIARD MD [Primary Care Provider] - Follow up as needed
[2017-02-04] MEDS ORDERED: INSULIN LISPRO 100 UNIT/ML 3 ML VIAL SUBCUT ONE (12:26)
[2017-02-04 12:35] LABS: ABSOLUTE EOSINOPHILS # (AUTO) 0.2 10^3/uL (0.0-0.6); ABSOLUTE MONOCYTES (AUTO) 0.7 10^3/uL (0.1-1.4); ABSOLUTE NEUT (AUTO) 8.6 10^3/uL (1.7-8.2); BASOPHILS % (AUTO) 0.1 % (0-2); EOSINOPHILS % (AUTO) 1.6 % (0-6); HEMATOCRIT 27.9 % (37.9-51.0); HEMOGLOBIN 8.8 g/dL (13.5-17.0); HGB HCT DIFFERENCE -1.5; LYMPHOCYTES % (AUTO) 9.8 % (13-45); MEAN CORPUSCULAR HEMOGLOBIN 24.2 pg (27.0-33.4); MEAN CORPUSCULAR HGB CONC 31.5 g/dL (32.0-36.0); MEAN CORPUSCULAR VOLUME 77 fl (80-97); MONOCYTES % (AUTO) 6.7 % (3-13); RED BLOOD COUNT 3.62 10^6/uL (4.35-5.55); RED CELL DISTRIBUTION WIDTH 21.5 % (11.5-14.0); SEGMENTED NEUTROPHILS % (AUTO) 81.8 % (42-78); WHITE BLOOD COUNT 10.5 10^3/uL (4.0-10.5)
--- NOTE | 2017-02-04 12:37 | RADIOLOGY REPORT (SQ) ---
EXAM DESCRIPTION: CHEST SINGLE VIEW COMPLETED DATE/TIME: 02/04/2017 12:28 pm REASON FOR STUDY: fever COMPARISON: 01/08/2017. EXAM PARAMETERS: NUMBER OF VIEWS: One view. TECHNIQUE: Single frontal radiographic view of the chest acquired. RADIATION DOSE: NA LIMITATIONS: None. FINDINGS: LUNGS AND PLEURA: No opacities, masses or pneumothorax. No pleural effusion. MEDIASTINUM AND HILAR STRUCTURES: No masses. Contour normal. HEART AND VASCULAR STRUCTURES: Heart normal in size. Normal vasculature. BONES: No acute findings. HARDWARE: Defibrillator. OTHER: No other significant finding. IMPRESSION: NO ACUTE RADIOGRAPHIC FINDING IN THE CHEST. TECHNICAL DOCUMENTATION: JOB ID: [id number]
[2017-02-04 12:54] LABS: ALANINE AMINOTRANSFERASE 17 U/L (21-72); ALBUMIN 3.3 g/dL (3.5-5.0); ALKALINE PHOSPHATASE 89 U/L (38-126); ANION GAP 11 (5-19); ASPARTATE AMINO TRANSFERASE 37 U/L (17-59); BILIRUBIN,DIRECT 0.5 mg/dL (0.0-0.4); BILIRUBIN,TOTAL 0.6 mg/dL (0.2-1.3); BLOOD UREA NITROGEN 64 mg/dL (7-20); CALCIUM 9.1 mg/dL (8.4-10.2); CARBON DIOXIDE 34 mmol/L (22-30); CHLORIDE 114 mmol/L (98-107); CREATINE KINASE 75 U/L (55-170); CREATININE RESULT 1.11 mg/dL (0.52-1.25); LIPASE 60.7 U/L (23-300); POTASSIUM 4.5 mmol/L (3.6-5.0); SODIUM 158.7 mmol/L (137-145); TOTAL PROTEIN 7.9 g/dL (6.3-8.2)
[2017-02-04 13:05] LABS: GLUCOSE 438 mg/dL (75-110)
[2017-02-04] MEDS ORDERED: 1/2 NORMAL SALINE 1,000 ML IV ONE (13:33)
[2017-02-04 14:38] LABS: APPEARANCE,URINE CLOUDY; BILIRUBIN,URINE NEGATIVE (NEGATIVE); GLUCOSE, URINE 50 mg/dL (NEGATIVE); KETONES,URINE NEGATIVE (NEGATIVE); LEUKOCYTE ESTERASE,URINE TRACE (NEGATIVE); NITRITE,URINE NEGATIVE (NEGATIVE); PROTEIN,URINE >=500 mg/dL (NEGATIVE); URINE SPECIFIC GRAVITY 1.008; UROBILINOGEN,URINE NEGATIVE mg/dL (<2.0)
[2017-02-04 15:30] VITALS: BP 104/62
== END 2017-02-04 16:15 | disposition home or self-care (01) ==
LOC: ER 11:26
DX: N39.0 Urinary tract infection, site not specified (principal); R31.0 Gross hematuria; Z46.6 Encounter for fitting and adjustment of urinary device; E11.65 Type 2 diabetes mellitus with hyperglycemia; Z79.4 Long term (current) use of insulin; R50.9 Fever, unspecified; N40.0 Benign prostatic hyperplasia without lower urinary tract symptoms; F03.90 Unspecified dementia, unspecified severity, without behavioral disturbance, psychotic disturbance, mood disturbance, and anxiety; I25.10 Atherosclerotic heart disease of native coronary artery without angina pectoris; I25.2 Old myocardial infarction; I10 Essential (primary) hypertension
CPT/HCPCS: 99285; 96365; 36415; 87040; 87086; 82962; 82550; 83690; 85025; 87088; 80053; 81001; 87186; 83605; 71010; A9270; J0696; J1815

== ENCOUNTER 2017-02-05 07:31 | Emergency (ER) | payer MEDICARE, MEDICAID ==
[2017-02-05] MEDS ORDERED: NORMAL SALINE 1000 ML 500 ML IV ONE (07:44)
[2017-02-05 08:59] LABS: HEMATOCRIT 27.7 % (37.9-51.0); HEMOGLOBIN 8.7 g/dL (13.5-17.0); HGB HCT DIFFERENCE -1.6; MEAN CORPUSCULAR HEMOGLOBIN 24.2 pg (27.0-33.4); MEAN CORPUSCULAR HGB CONC 31.6 g/dL (32.0-36.0); MEAN CORPUSCULAR VOLUME 77 fl (80-97); RED BLOOD COUNT 3.62 10^6/uL (4.35-5.55); RED CELL DISTRIBUTION WIDTH 21.3 % (11.5-14.0); WHITE BLOOD COUNT 9.8 10^3/uL (4.0-10.5)
[2017-02-05 09:11] LABS: ALANINE AMINOTRANSFERASE 26 U/L (21-72); ALBUMIN 2.9 g/dL (3.5-5.0); ALKALINE PHOSPHATASE 79 U/L (38-126); ANION GAP 8 (5-19); ASPARTATE AMINO TRANSFERASE 21 U/L (17-59); BILIRUBIN,DIRECT 0.5 mg/dL (0.0-0.4); BILIRUBIN,TOTAL 0.5 mg/dL (0.2-1.3); BLOOD UREA NITROGEN 54 mg/dL (7-20); CALCIUM 9.2 mg/dL (8.4-10.2); CARBON DIOXIDE 34 mmol/L (22-30); CHLORIDE 121 mmol/L (98-107); CREATININE RESULT 0.96 mg/dL (0.52-1.25); GLUCOSE 275 mg/dL (75-110); POTASSIUM 3.7 mmol/L (3.6-5.0); TOTAL PROTEIN 7.5 g/dL (6.3-8.2)
[2017-02-05 09:19] LABS: APPEARANCE,URINE CLOUDY; BILIRUBIN,URINE NEGATIVE (NEGATIVE); GLUCOSE, URINE >=500 mg/dL (NEGATIVE); KETONES,URINE NEGATIVE (NEGATIVE); LEUKOCYTE ESTERASE,URINE LARGE (NEGATIVE); NITRITE,URINE NEGATIVE (NEGATIVE); PROTEIN,URINE 30 mg/dL (NEGATIVE); UROBILINOGEN,URINE NEGATIVE mg/dL (<2.0)
[2017-02-05 09:31] LABS: BASOPHILS % (MANUAL) 0 % (0-2); EOSINOPHILS % (MANUAL) 0 % (0-6); LYMPHOCYTES % (MANUAL) 10 % (13-45); MICROCYTOSIS SLIGHT; TOTAL CELLS COUNTED 100; TOXIC GRANULATION 1+
[2017-02-05 09:32] LABS: ANISOCYTOSIS 3+; PLATELET CLUMPS PRESENT; POIKILOCYTOSIS 1+; TARGET CELLS 1+
--- NOTE | 2017-02-05 09:48 | ER Document Report ---
ED Blood Sugar Problem - General Chief Complaint: High Blood Sugar Stated Complaint: BLOOD SUGAR PROBLEMS Time Seen by Provider: 02/05/17 07:36 Mode of Arrival: Medic Information source: Outside Facility Records Notes: Patient is a 76-year-old male [facility] elevated blood sugar today. They state his blood sugar was 503 on [facility]Chek [facility] the [facility]. They did give him his regular dose of Humalog. On arrival here patient's Accu-Chek is 278. Repeat Accu-Chek was 238. Anion gap is normal. Patient is not having any vomiting and denies any pain. TRAVEL OUTSIDE OF THE [place] IN LAST 30 DAYS: No - Related Data Allergies/Adverse Reactions: No Known Allergies Allergy (Verified 02/05/17 08:10) Home Medications: Current Home Medications Amox Tr/Potassium Clavulanate [Augmentin Es 600 mg-42.9 mg Susp 75 ml] 10 ml PEG BID 02/05/17 [History] Doxazosin Mesylate [Cardura 2 mg Tablet] 1 tab PEG DAILY 02/05/17 [History] Finasteride [Proscar 5 mg Tablet] 1 tab PEG DAILY 02/05/17 [History] Latanoprost [Xalatan 0.005% Oph Soln 2.5 ml] 1 drop OP QHS 02/05/17 [History] Multivits W-Min/Ferrous Gluc [Centrum Multivit-Mineral Liq] 9 mg PEG DAILY 02/05 [History] Polyethylene Glycol 3350 [Miralax Powder 17 gm/Packet] 17 gm PEG DAILY 02/05/17 [History] Past Medical History - General Information source: Patient, Outside Facility Records - Social History Smoking Status: Unknown if Ever Smoked Family History: None, Reviewed & Not Pertinent, Other - Unobtainable - Past Medical History Cardiac Medical History: Reports: Hx Congestive Heart Failure, Hx Coronary Artery Disease - stent x 1, Hx Heart Attack - 2004, Hx Hypercholesterolemia, Hx Hypertension, Hx Peripheral Vascular Disease Pulmonary Medical History: Reports: Hx Asthma - as child Denies: Hx Bronchitis, Hx COPD, Hx Pneumonia, Hx Tuberculosis Neurological Medical History: Denies: Hx Seizures Endocrine Medical History: Reports: Hx Diabetes Mellitus Type 2 Renal/ Medical History: Reports: Hx Benign Prostatic Hyperplasia GI Medical History: Reports: Hx Gastroesophageal Reflux Disease. Denies: Hx Hiatal Hernia, Hx Ulcer Musculoskeltal Medical History: Reports Hx Arthritis, Reports Hx Musculoskeletal Deformity - BKA Psychiatric Medical History: Reports: Hx Dementia Denies: Hx Attention Deficit Hyperactivity Disorder, Hx Bipolar Disorder, Hx Depression, Hx Schizophrenia Past Surgical History: Reports: Hx Abdominal Surgery, Hx Cardiac Surgery - defibrillator, Hx Internal Defibrillator, Hx Orthopedic Surgery - left BKA, Hx Vascular Surgery - left groin. Denies: Hx Open Heart Surgery - Immunizations Hx Diphtheria, Pertussis, Tetanus Vaccination: No Review of Systems - Review of Systems Constitutional: No symptoms reported EENT: No symptoms reported Cardiovascular: No symptoms reported Respiratory: No symptoms reported Gastrointestinal: No symptoms reported Genitourinary: No symptoms reported Male Genitourinary: No symptoms reported Musculoskeletal: No symptoms reported Skin: No symptoms reported Hematologic/Lymphatic: No symptoms reported Neurological/Psychological: No symptoms reported Physical Exam - Vital signs Vitals: Temp Pulse Resp BP Pulse Ox 98.3 F 84 18 129/63 H 97 02/05/17 07:40 02/05/17 07:40 02/05/17 07:40 02/05/17 07:40 02/05/17 07:40 - Notes Notes: PHYSICAL EXAMINATION: GENERAL: Chronically ill-appearing, but in no acute distress. HEAD: Atraumatic, normocephalic. EYES: Pupils equal round and reactive to light, extraocular movements intact, sclera anicteric, conjunctiva are normal. NECK: Normal range of motion, supple without lymphadenopathy LUNGS: CTAB and equal. No wheezes rales or rhonchi. HEART: Regular rate and rhythm without murmurs ABDOMEN: Soft, no tenderness. No guarding, no rebound BACK: no vertebral tenderness, normal ROM GI/: no CVA tenderness EXTREMITIES: Normal range of motion, no pitting edema. No cyanosis. SKIN: Warm, Dry, normal turgor, no rashes or lesions noted Course - Re-evaluation Re-evalutation: 02/05/17 10:22 Lab work is all unremarkable today, patient sodium is always elevated as it is today as well. This is patient's baseline. Patient's blood sugar is decreasing as expected. He has had no intervention here. - Vital Signs Vital signs: Temp Pulse Resp BP Pulse Ox 98.3 F 84 18 129/63 H 97 02/05/17 07:40 02/05/17 07:40 02/05/17 07:40 02/05/17 07:40 02/05/17 07:40 - Laboratory Result Diagrams: 02/05/17 08:45 02/05/17 08:45 Laboratory results interpreted by me: 02/05/17 02/05/17 02/05/17 07:37 08:15 08:45 RBC 3.62 L Hgb 8.7 L Hct 27.7 L MCV 77 L MCH 24.2 L MCHC 31.6 L RDW 21.3 H Seg Neuts % (Manual) 87 H Lymphocytes % (Manual) 10 L Abs Neuts (Manual) 8.5 H Sodium Chloride Carbon Dioxide BUN Glucose POC Glucose 302 H 278 H Serum Osmolality Direct Bilirubin Albumin Urine Protein Urine Glucose (UA) Urine Blood Ur Leukocyte Esterase Urine Ascorbic Acid 02/05/17 02/05/17 02/05/17 08:45 08:45 08:45 RBC Hgb Hct MCV MCH MCHC RDW Seg Neuts % (Manual) Lymphocytes % (Manual) Abs Neuts (Manual) Sodium 163.0 H Chloride 121 H Carbon Dioxide 34 H BUN 54 H Glucose 275 H POC Glucose Serum Osmolality 359 H Direct Bilirubin 0.5 H Albumin 2.9 L Urine Protein 30 H Urine Glucose (UA) >=500 H Urine Blood LARGE H Ur Leukocyte Esterase LARGE H Urine Ascorbic Acid 20 H 02/05/17 09:54 RBC Hgb Hct MCV MCH MCHC RDW Seg Neuts % (Manual) Lymphocytes % (Manual) Abs Neuts (Manual) Sodium Chloride Carbon Dioxide BUN Glucose POC Glucose 234 H Serum Osmolality Direct Bilirubin Albumin Urine Protein Urine Glucose (UA) Urine Blood Ur Leukocyte Esterase Urine Ascorbic Acid Discharge - Discharge Clinical Impression: Hyperglycemia Condition: Stable Disposition: HOME-SNF (ED ONLY) Additional Instructions: Return immediately for any new or worsening symptoms. Follow up with primary care provider, call tomorrow to make followup appointment.
[2017-02-05 13:00] VITALS: BP 120/67
== END 2017-02-05 12:59 ==
LOC: ER 07:31
DX: R73.9 Hyperglycemia, unspecified (principal); Z79.899 Other long term (current) drug therapy
CPT/HCPCS: 36415; 80053; 81001; 82962; 83930; 85025; 99284

== ENCOUNTER 2017-02-09 13:05 | Emergency (ER) | payer MEDICARE, MEDICAID ==
[2017-02-09 14:17] LABS: APPEARANCE,URINE SLIGHTLY-CLOUDY; BILIRUBIN,URINE NEGATIVE (NEGATIVE); GLUCOSE, URINE NEGATIVE (NEGATIVE); KETONES,URINE NEGATIVE (NEGATIVE); LEUKOCYTE ESTERASE,URINE SMALL (NEGATIVE); NITRITE,URINE NEGATIVE (NEGATIVE); PROTEIN,URINE 30 mg/dL (NEGATIVE); URINE SPECIFIC GRAVITY 1.011; UROBILINOGEN,URINE NEGATIVE mg/dL (<2.0)
[2017-02-09] MEDS ORDERED: CEPHALEXIN 500 MG CAPSULE PO ONE (14:56)
[2017-02-09 15:24] LABS: PROTHROMBIN TIME 14.5 SEC (11.4-15.4)
[2017-02-09 15:25] LABS: ABSOLUTE EOSINOPHILS # (AUTO) 0.2 10^3/uL (0.0-0.6); ABSOLUTE LYMPHOCYTES (AUTO) 1.2 10^3/uL (0.5-4.7); ABSOLUTE MONOCYTES (AUTO) 0.2 10^3/uL (0.1-1.4); ABSOLUTE NEUT (AUTO) 5.9 10^3/uL (1.7-8.2); BASOPHILS % (AUTO) 0.3 % (0-2); EOSINOPHILS % (AUTO) 2.1 % (0-6); HEMATOCRIT 26.1 % (37.9-51.0); HEMOGLOBIN 8.3 g/dL (13.5-17.0); HGB HCT DIFFERENCE -1.2; LYMPHOCYTES % (AUTO) 15.9 % (13-45); MEAN CORPUSCULAR HEMOGLOBIN 24.2 pg (27.0-33.4); MEAN CORPUSCULAR HGB CONC 31.9 g/dL (32.0-36.0); MEAN CORPUSCULAR VOLUME 76 fl (80-97); MONOCYTES % (AUTO) 3.2 % (3-13); PARTIAL THROMBOPLASTIN TIME 38.3 SEC (23.5-35.8); RED BLOOD COUNT 3.44 10^6/uL (4.35-5.55); RED CELL DISTRIBUTION WIDTH 21.7 % (11.5-14.0); SEGMENTED NEUTROPHILS % (AUTO) 78.5 % (42-78); WHITE BLOOD COUNT 7.6 10^3/uL (4.0-10.5)
[2017-02-09 15:40] LABS: ALANINE AMINOTRANSFERASE 25 U/L (21-72); ALBUMIN 3.1 g/dL (3.5-5.0); ALKALINE PHOSPHATASE 74 U/L (38-126); ANION GAP 10 (5-19); ASPARTATE AMINO TRANSFERASE 22 U/L (17-59); BILIRUBIN,DIRECT 0.4 mg/dL (0.0-0.4); BILIRUBIN,TOTAL 0.5 mg/dL (0.2-1.3); BLOOD UREA NITROGEN 44 mg/dL (7-20); CALCIUM 9.4 mg/dL (8.4-10.2); CARBON DIOXIDE 31 mmol/L (22-30); CHLORIDE 123 mmol/L (98-107); CREATININE RESULT 0.86 mg/dL (0.52-1.25); GLUCOSE 269 mg/dL (75-110); POTASSIUM 4.3 mmol/L (3.6-5.0); SODIUM 163.9 mmol/L (137-145); TOTAL PROTEIN 7.6 g/dL (6.3-8.2)
[2017-02-09] MEDS ORDERED: NORMAL SALINE 1000 ML 1,000 ML IV ONE (16:33)
[2017-02-09] MEDS ORDERED: NORMAL SALINE 250 ML IV PRN (17:06)
--- NOTE | 2017-02-09 17:08 | ER Document Report ---
ED GI/ - General Chief Complaint: Blood in Catheter Stated Complaint: URINARY PROBLEM Time Seen by Provider: 02/09/17 13:09 Mode of Arrival: Medic Information source: Outside Facility Records Notes: Patient is a 76-year-old male who presents to the ER today from assisted for blood in his urine. Patient has a chronic Babb catheter due to having a stroke in his past, he denies any pain at all. He has been seen here multiple times in his urinalysis always reveals blood, and usually reveals infection. He was here 3 days ago and had E. coli grow from his urinalysis with greater than 182 white blood cells. Patient also has had increased sodium since September of this year, gradually increasing. TRAVEL OUTSIDE OF THE [place] IN LAST 30 DAYS: No - Related Data Allergies/Adverse Reactions: No Known Allergies Allergy (Verified 02/05/17 08:10) Home Medications: Current Home Medications Nitroglycerin [Nitro-Dur 5 mg (0.2 mg/Hr) Transdermal Patch] 1 each TD QAM [History] Spironolactone [Aldactone 25 mg Tablet] 25 mg PEG DAILY 02/09/17 [History] Past Medical History - General Information source: Outside Facility Records - Social History Smoking Status: Unknown if Ever Smoked Family History: None, Reviewed & Not Pertinent, Other - Unobtainable - Past Medical History Cardiac Medical History: Reports: Hx Congestive Heart Failure, Hx Coronary Artery Disease - stent x 1, Hx Heart Attack - 2003, Hx Hypercholesterolemia, Hx Hypertension, Hx Peripheral Vascular Disease Pulmonary Medical History: Reports: Hx Asthma - as child Denies: Hx Bronchitis, Hx COPD, Hx Pneumonia, Hx Tuberculosis Neurological Medical History: Denies: Hx Seizures Endocrine Medical History: Reports: Hx Diabetes Mellitus Type 2 Renal/ Medical History: Reports: Hx Benign Prostatic Hyperplasia GI Medical History: Reports: Hx Gastroesophageal Reflux Disease. Denies: Hx Hiatal Hernia, Hx Ulcer Musculoskeltal Medical History: Reports Hx Arthritis, Reports Hx Musculoskeletal Deformity - BKA Psychiatric Medical History: Reports: Hx Dementia Denies: Hx Attention Deficit Hyperactivity Disorder, Hx Bipolar Disorder, Hx Depression, Hx Schizophrenia Past Surgical History: Reports: Hx Abdominal Surgery, Hx Cardiac Surgery - defibrillator, Hx Internal Defibrillator, Hx Orthopedic Surgery - left BKA, Hx Vascular Surgery - left groin. Denies: Hx Open Heart Surgery - Immunizations Hx Diphtheria, Pertussis, Tetanus Vaccination: No Review of Systems - Review of Systems Constitutional: No symptoms reported EENT: No symptoms reported Cardiovascular: No symptoms reported Respiratory: No symptoms reported Gastrointestinal: No symptoms reported Genitourinary: See HPI Male Genitourinary: No symptoms reported Musculoskeletal: No symptoms reported Skin: No symptoms reported Hematologic/Lymphatic: No symptoms reported Neurological/Psychological: No symptoms reported Physical Exam - Vital signs Vitals: Temp Pulse Resp BP Pulse Ox 98.5 F 66 18 125/59 L 98 02/09/17 13:13 02/09/17 13:13 02/09/17 13:13 02/09/17 13:13 02/09/17 13:13 - Notes Notes: PHYSICAL EXAMINATION: GENERAL:Chronically ill-appearing, in no acute distress. HEAD: Atraumatic, normocephalic. EYES: Pupils equal round and reactive to light, extraocular movements intact, sclera anicteric, conjunctiva are normal. NECK: Normal range of motion, supple without lymphadenopathy LUNGS: CTAB and equal. No wheezes rales or rhonchi. HEART: Regular rate and rhythm without murmurs ABDOMEN: Soft, peg tube in place, no tenderness. No guarding, no rebound BACK: no vertebral tenderness, normal ROM GI/: babb in place, no CVA tenderness EXTREMITIES: Normal range of motion, no pitting edema. No cyanosis. NEUROLOGICAL: dysphasia PSYCH: demented SKIN: Warm, Dry, normal turgor, no rashes or lesions noted Course - Re-evaluation Re-evalutation: 02/09/17 18:58 September and patient's hemoglobin has been trending down since November. Patient's sodium has been trending up since patient's hemoglobin is 8.3 today and he has gross hematuria in his Babb bag. Patient's sodium is now up to 163.9 which is the highest it has been. His BUN is in the 40s with a normal creatinine. I did consult with my attending, Dr. Nunez who advises admission for IV fluids. Pt is on plavix and aspirin and Dr. Nunez agrees that pt should receive blood at this time. type and screen ordered, 2 units of packed red cells ordered. Dr. Oneal, hospitalist was called and believes pt should go to another hospital with urology controller mechanic for the hematuria as we do not have urology here controller mechanic today. Three of my attendings down in the ER do not agree, however, physician practice administrator controller mechanic was consulted, Dr. Oneal came down and evaluated the patient and still advises transfer at this time for mookie hematuria and urology. [facility] has no medical beds, [facility] has no medical beds, [facility] pending call back at this time. 02/09/17 19:15 Dr. Perez, hospitalist at [facility] accepted pt. 02/09/17 01:10 pt stable for transfer, no complaints at this time, all stable vitals, second unit of blood transfusing. 02/10/17 09:04 - Vital Signs Vital signs: Temp Pulse Resp BP Pulse Ox 98.5 F 75 16 141/72 H 98 02/10/17 01:18 02/10/17 01:18 02/10/17 01:18 02/10/17 01:18 02/10/17 01:18 - Laboratory Result Diagrams: 02/09/17 15:00 02/09/17 15:00 Laboratory results interpreted by me: 02/09/17 02/09/17 02/09/17 13:47 15:00 15:00 RBC 3.44 L Hgb 8.3 L Hct 26.1 L MCV 76 L MCH 24.2 L MCHC 31.9 L RDW 21.7 H Seg Neutrophils % 78.5 H APTT Sodium 163.9 H Chloride 123 H Carbon Dioxide 31 H BUN 44 H Glucose 269 H Albumin 3.1 L Urine Protein 30 H Urine Blood LARGE H Ur Leukocyte Esterase SMALL H Urine Ascorbic Acid 40 H Crossmatch 02/09/17 02/09/17 15:00 17:35 RBC Hgb Hct MCV MCH MCHC RDW Seg Neutrophils % APTT 38.3 H Sodium Chloride Carbon Dioxide BUN Glucose Albumin Urine Protein Urine Blood Ur Leukocyte Esterase Urine Ascorbic Acid Crossmatch See Detail Discharge - Discharge Clinical Impression: Hypernatremia, Babb catheter in place, senior living current use of anticoagulant therapy Hematuria Qualifiers: Hematuria type: gross Qualified Code(s): R31.0 - Gross hematuria Condition: Stable Disposition: [facility] Referrals: CHAD HILLIARD MD [Primary Care Provider] - Follow up as needed
--- NOTE | 2017-02-09 18:24 | Progress Note ---
Provider Note Provider Note: Hospitalist note The hospital medicine service has been called on 4 occasions today by the emergency department provider and on one occasion by the executive administrator on-call in order to force me to admit this patient with recurrent gross hematuria. On all 4 occasions I have advised them that there is absolutely nothing that hospital medicine provider can do to adequately evaluate recurrent gross hematuria. I am not comfortable abandoning this patient's antiplatelet therapy given history of coronary artery disease, recent non-ST elevation UT, peripheral vascular disease without having thorough urology evaluation. I have been extremely clear to the emergency department provider and the executive administrator on-call that this patient needs to be transferred for urology evaluation as there is no urology at this facility.
--- NOTE | 2017-02-09 18:45 | PDOC CONSULTATION ---
Consultation Consult Date: 02/09/17 Consult reason:: Gross hematuria History of Present Illness Admission Date/PCP: CHAD HILLIARD History of Present Illness: SEUN TOTH is a 76 year old male that is transferred from custodial facility for gross hematuria. Patient apparently has had recurrent episodes of gross hematuria and unfortunately is on aspirin and Plavix for coronary artery disease, stroke, and peripheral vascular disease. Patient himself has an expressive aphasia and cannot give me much history most history is gleaned through review of medical records. Past Medical History Cardiac Medical History: Reports: Congestive Heart Failure, Coronary Artery Disease - stent x 1, Myocardial Infarction - 2003, Hyperlipidema, Hypertension, Peripheral Vascular Disease Pulmonary Medical History: Reports: Asthma - as child Denies: Bronchitis, Chronic Obstructive Pulmonary Disease (COPD), Pneumonia, Tuberculosis Neurological Medical History: Reports: Ischemic CVA Denies: Seizures Endocrine Medical History: Reports: Diabetes Mellitus Type 2 GI Medical History: Reports: Gastroesophageal Reflux Disease Denies: Hiatal Hernia Musculoskeltal Medical History: Reports: Arthritis Psychiatric Medical History: Reports: Dementia Denies: Attention Deficit Hyperactivity Disorder, Bipolar Disorder, Depression Hematology: Reports: Anemia Denies: Sickle Cell Disease Past Surgical History Past Surgical History: Reports: Internal Defibrillator, Orthopedic Surgery - left BKA, Vascular Surgery - left groin Social History Information Source: Emergency Med Personnel, [facility] Records Lives with: Care Home Smoking Status: Unknown if Ever Smoked Frequency of Alcohol Use: None Hx Recreational Drug Use: No Drugs: None Hx Prescription Drug Abuse: No Family History Family History: None, Reviewed & Not Pertinent, Other - Unobtainable Parental Family History Reviewed: Yes Children Family History Reviewed: Yes Sibling(s) Family History Reviewed.: Yes Medication/Allergy Home Medications: Acetaminophen [Tylenol 325 mg Tablet] 650 mg PEG Q6HP PRN 01/04/17 Aspirin [Aspirin 81 mg Chewable Tablet] 81 mg PEG DAILY 01/04/17 Atorvastatin Calcium [Lipitor 10 mg Tablet] 10 mg PEG DAILY 01/04/17 Clopidogrel Bisulfate [Clopidogrel] 75 mg PEG DAILY 01/04/17 Folic Acid 1 mg PEG DAILY 01/04/17 Metformin HCl [Glucophage] 500 mg PEG BID 01/04/17 Travoprost (Benzalkonium) [Travatan 0.004% Eye Drop] 5 ml OD QHS 01/04/17 Carvedilol [Coreg 6.25 mg Tablet] 25 mg PEG Q12 tablet 01/10/17 Ferrous Sulfate [Ferrous Sulfate Liquid 300 mg/5 ml Udcup] 300 mg PEG BID udc 01/10/17 Losartan Potassium [Cozaar 25 mg Tablet] 50 mg PO Q12 tablet 01/10/17 Amox Tr/Potassium Clavulanate [Augmentin Es 600 mg-42.9 mg Susp 75 ml] 10 ml PEG BID 02/05/17 Doxazosin Mesylate [Cardura 2 mg Tablet] 2 mg PEG DAILY 02/05/17 Finasteride [Proscar 5 mg Tablet] 5 mg PEG DAILY 02/05/17 Latanoprost [Xalatan 0.005% Oph Soln 2.5 ml] 1 drop OP QHS 02/05/17 Multivits W-Min/Ferrous Gluc [Centrum Multivit-Mineral Liq] 9 mg PEG DAILY 02/05 Polyethylene Glycol 3350 [Miralax Powder 17 gm/Packet] 17 gm PEG DAILY 02/05/17 Nitroglycerin [Nitro-Dur 5 mg (0.2 mg/Hr) Transdermal Patch] 1 each TD QAM Spironolactone [Aldactone 25 mg Tablet] 25 mg PEG DAILY 02/09/17 Allergies/Adverse Reactions: No Known Allergies Allergy (Verified 02/05/17 08:10) Review of Systems ROS unobtainable: Due to mental status - Expressive aphasia Physical Exam Vital Signs: Temp Pulse Resp BP Pulse Ox 98.4 F 86 18 124/56 L 95 02/09/17 18:24 02/09/17 18:24 02/09/17 18:24 02/09/17 18:24 02/09/17 18:24 PHYSICAL EXAM: GENERAL: Appears well, no acute distress HEENT: Normocephalic, no scleral icterus, conjunctiva clear, EOEM intact, PERRLA , moist mucous membranes NECK: trachea midline, no thyromegally RESPIRATORY: Clear to auscultation, no wheezes/rhonchi CARDIAC: Regular rate and rhythm, no murmur/randa/rub ABDOMEN: Soft, no distension, no tenderness, no guarding, normal bowel sounds, negative Perkins sign RECTAL: deferred : Catalan catheter in place with large amount of mookie blood in catheter bag EXTREMITIES: No edema, cyanosis, clubbing MUSCULOSKELETAL: No joint swelling or deformity VASCULAR: normal peripheral pulses NEUROLOGIC: Alert, unable to assess orientation, expressive aphasia SKIN: No rash, no wounds, no worrisome skin lesions Results Laboratory Results: 02/09/17 15:00 02/09/17 15:00 02/09/17 02/09/17 02/09/17 13:47 15:00 15:00 WBC 7.6 RBC 3.44 L Hgb 8.3 L Hct 26.1 L MCV 76 L MCH 24.2 L MCHC 31.9 L RDW 21.7 H Plt Count 210 Seg Neutrophils % 78.5 H Lymphocytes % 15.9 Monocytes % 3.2 Eosinophils % 2.1 Basophils % 0.3 Absolute Neutrophils 5.9 Absolute Lymphocytes 1.2 Absolute Monocytes 0.2 Absolute Eosinophils 0.2 Absolute Basophils 0.0 Sodium 163.9 H Potassium 4.3 Chloride 123 H Carbon Dioxide 31 H Anion Gap 10 BUN 44 H Creatinine 0.86 Est GFR ( Amer) > 60 Est GFR (Non-Af Amer) > 60 Glucose 269 H Calcium 9.4 Total Bilirubin 0.5 AST 22 ALT 25 Alkaline Phosphatase 74 Total Protein 7.6 Albumin 3.1 L Urine Color YELLOW Urine Appearance SLIGHTLY-CLOUDY Urine pH 8.0 Ur Specific [place] 1.011 Urine Protein 30 H Urine Glucose (UA) NEGATIVE Urine Ketones NEGATIVE Urine Blood LARGE H Urine Nitrite NEGATIVE Ur Leukocyte Esterase SMALL H Urine WBC (Auto) 30 Urine RBC (Auto) >182 Assessment & Plan - Diagnosis (1) Gross hematuria Is this a current diagnosis for this admission?: YesPlan: Recommend transfer patient to a facility that has urology supervisor inspection department. I would be reluctant to discontinue antiplatelet therapy without proper urologic evaluation given patient's history of stroke, recent non-ST elevation CA/ coronary artery disease, peripheral vascular disease. (2) Anemia Qualifiers: Anemia type: unspecified type Qualified Code(s): D64.9 - Anemia, unspecified Is this a current diagnosis for this admission?: YesPlan: Monitor H&H closely given active bleeding. I would not allow hemoglobin to drop below 8.0 given coronary artery disease and recent non-ST elevation CA. (3) CVA (cerebral vascular accident) Qualifiers: CVA mechanism: unspecified Qualified Code(s): I63.9 - Cerebral infarction, unspecified Is this a current diagnosis for this admission?: Yes (4) Chronic systolic (congestive) heart failure Is this a current diagnosis for this admission?: Yes (5) Diabetes Qualifiers: Diabetes mellitus type: type 2 Diabetes mellitus complication status: with circulatory complication Diabetes mellitus complication detail: with other circulatory complications Diabetes mellitus termite exterminator insulin use: without chcf use Qualified Code(s): E11.59 - Type 2 diabetes mellitus with other circulatory complications Is this a current diagnosis for this admission?: Yes (6) Dysphagia due to recent cerebral infarction Is this a current diagnosis for this admission?: Yes (7) Peripheral vascular disease Is this a current diagnosis for this admission?: Yes (8) CAD (coronary artery disease) Qualifiers: Coronary Disease-Associated Artery/Lesion type: [place] artery [place] vs. transplanted heart: [place] heart Associated angina: without angina Qualified Code(s): I25.10 - Atherosclerotic heart disease of [place] coronary artery without angina pectoris Is this a current diagnosis for this admission?: Yes - Time Time Spent: 30 to 50 Minutes Anticipated [facility] Within: when bed available
--- NOTE | 2017-02-09 19:35 | ER Document Report ---
Doctor's Note Notes: 02/09/17 19:32 Asked by ANKIT hawkins need to be involved in the case in regards to transfer. She states that she has talked to Dr. Cisneros and also has talked to Dr. Nunez and both of those physicians prior to my coming to work felt that the patient did not to be need to be transferred for urgent urology consultation. Ana Rosa states she has talked to the hospitalist several times and they have not done an ed evaluation. Gre Instructor on-call was contacted who apparently spoke with Dr. Oneal who then came down and evaluated the patient and agreed with the transfer and wrote a note. ANKIT Hawkins states has received an accepting physician from [facility] but they do not have a bed available at this time. Patient was assessed he is awake alert but demented which is his baseline and is hemodynamically stable.
--- NOTE | 2017-02-10 01:23 | ER Document Report ---
Doctor's Note Notes: 02/10/17 01:23 Assessed at bedside stable baseline dementia blood is running and he is hemodynamically stable. Transfer team is here to transfer the patient and palate form is completed Melita signed and dated it. And he is stable for transport to receiving facility.
[2017-02-10 03:29] VITALS: BP 141/72
== END 2017-02-10 01:20 | disposition short-term general hospital (02) ==
LOC: ER 13:05
DX: T85.9XXA Unspecified complication of internal prosthetic device, implant and graft, initial encounter (principal); E87.0 Hyperosmolality and hypernatremia; R31.0 Gross hematuria; Z79.899 Other long term (current) drug therapy; R39.198 Other difficulties with micturition; Z79.01 Long term (current) use of anticoagulants
CPT/HCPCS: 99284; 96360; 86900; 86901; 36415; 87086; 36430; 86850; 85025; 85610; 85730; 80053; 81001; 86920; P9016; A9270; J7030

== ENCOUNTER 2017-02-22 10:08 | Emergency (ER) | payer MEDICARE, MEDICAID ==
--- NOTE | 2017-02-22 10:19 | ER Document Report ---
ED GI/ - General Stated Complaint: BLOOD IN URINE Time Seen by Provider: 02/22/17 10:10 Mode of Arrival: Medic Information source: Transfer Record, Emergency Med Personnel TRAVEL OUTSIDE OF THE [place] IN LAST 30 DAYS: No - HPI Patient complains to provider of: Hematuria Onset: This morning Quality of pain: No pain Context: Other - RECENT UTI & Rx Associated symptoms: Hematuria. denies: Fever, Vomiting Recently seen / treated by doctor: Yes - UTI Rx - Related Data Allergies/Adverse Reactions: No Known Allergies Allergy (Verified 02/22/17 11:56) Past Medical History - General Information source: Transfer Record - Social History Smoking Status: Unknown if Ever Smoked Cigarette use (# per day): No Chew tobacco use (# tins/day): No Frequency of alcohol use: None Drug Abuse: None Lives with: Senior Living Family History: None, Reviewed & Not Pertinent, Other - Unobtainable - Past Medical History Cardiac Medical History: Reports: Hx Congestive Heart Failure, Hx Coronary Artery Disease - stent x 1, Hx Heart Attack - 2003, Hx Hypercholesterolemia, Hx Hypertension, Hx Peripheral Vascular Disease Pulmonary Medical History: Reports: Hx Asthma - as child Denies: Hx Bronchitis, Hx COPD, Hx Pneumonia, Hx Tuberculosis Neurological Medical History: Denies: Hx Seizures Endocrine Medical History: Reports: Hx Diabetes Mellitus Type 2 Renal/ Medical History: Reports: Hx Benign Prostatic Hyperplasia GI Medical History: Reports: Hx Gastroesophageal Reflux Disease. Denies: Hx Hiatal Hernia, Hx Ulcer Musculoskeltal Medical History: Reports Hx Arthritis, Reports Hx Musculoskeletal Deformity - BKA Psychiatric Medical History: Reports: Hx Dementia Denies: Hx Attention Deficit Hyperactivity Disorder, Hx Bipolar Disorder, Hx Depression, Hx Schizophrenia Past Surgical History: Reports: Hx Abdominal Surgery, Hx Cardiac Surgery - defibrillator, Hx Internal Defibrillator, Hx Orthopedic Surgery - left BKA, Hx Vascular Surgery - left groin. Denies: Hx Open Heart Surgery - Immunizations Hx Diphtheria, Pertussis, Tetanus Vaccination: No Physical Exam - Vital signs Vitals: Temp Pulse Resp BP Pulse Ox 98.4 F 73 18 154/72 H 96 02/22/17 10:24 02/22/17 10:24 02/22/17 10:24 02/22/17 10:24 02/22/17 10:24 Interpretation: Hypertensive. No: Tachycardic, Tachypneic, Febrile - General General appearance: Appears well, Alert In distress: None - HEENT Head: Normocephalic Eyes: Normal Conjunctiva: Normal Ears: Normal Nasal: Normal Mouth/Lips: Other - EDENTULOUS Neck: Normal - Respiratory Respiratory status: No respiratory distress Breath sounds: Rhonchi - BILAT.. No: Rales, Wheezing - Cardiovascular Rhythm: Regular Heart sounds: Normal auscultation Murmur: No - Abdominal Inspection: Normal Distension: No distension Notes: PEG TUBE - Genitourinary Notes: INDWELLING MEEK, RED URINE IN BAG, CLEAR YELLOW URINE IN TUBE. - Extremities General upper extremity: Normal inspection General lower extremity: No: Normal inspection, Other - S/P TOE AMPUTATION RIGHT , LEFT B.K.A. - Neurological Neuro grossly intact: No - APHASIA Cognition: Normal Orientation: AAOx4 - Psychological Associated symptoms: No: Normal affect - FREQUENT PATHOLOGIC CRYING SPELLS - Skin Skin Temperature: Warm Skin Moisture: Dry Skin Color: Normal Skin Turgor: Elastic Course - Vital Signs Vital signs: Temp Pulse Resp BP Pulse Ox 98.4 F 73 18 154/72 H 96 02/22/17 10:24 02/22/17 10:24 02/22/17 10:24 02/22/17 10:24 02/22/17 10:24 - Laboratory Laboratory results interpreted by ri: 02/22/17 02/22/17 10:52 11:04 POC Glucose 129 H Urine Protein 100 H Urine Blood LARGE H Ur Leukocyte Esterase LARGE H Urine Ascorbic Acid 20 H Discharge - Discharge Clinical Impression: Hemorrhagic cystitis, Aphasia, Gross hematuria CVA (cerebral vascular accident) Qualifiers: CVA mechanism: unspecified Qualified Code(s): I63.9 - Cerebral infarction, unspecified Condition: Stable Disposition: HOME-SNF (ED ONLY) Additional Instructions: GIVE SMZ/TMP VIA G-TUBE ORDERED, BEGIN THIS PM. CONTINUE ALL OTHER MEDS BEFORE. FOLLOW UP WITH DR. HILLIARD. Prescriptions: Sulfamethoxazole/Trimethoprim [Sulfamethoxazole-Tmp Susp] 20 ml PEG BID #400 ml Referrals: CHAD HILLIARD MD [Primary Care Provider] - Follow up as needed
--- NOTE | 2017-02-22 11:46 | RADIOLOGY REPORT (SQ) ---
EXAM DESCRIPTION: CHEST SINGLE VIEW COMPLETED DATE/TIME: 02/22/2017 11:38 am REASON FOR STUDY: PRODUCTIVE COUGH COMPARISON: 02/04/2017 EXAM PARAMETERS: NUMBER OF VIEWS: One view. TECHNIQUE: Single frontal radiographic view of the chest acquired. RADIATION DOSE: NA LIMITATIONS: None. FINDINGS: LUNGS AND PLEURA: No opacities, masses or pneumothorax. No pleural effusion. MEDIASTINUM AND HILAR STRUCTURES: No masses. Contour normal. HEART AND VASCULAR STRUCTURES: Cardiac silhouette remains enlarged and is unchanged in configuration. BONES: No acute findings. HARDWARE: AICD device is unchanged in position. OTHER: No other significant finding. IMPRESSION: No significant interval change. Cardiomegaly. No acute findings. Other findings as no sol above TECHNICAL DOCUMENTATION: JOB ID: [id number]
[2017-02-22 12:09] LABS: APPEARANCE,URINE CLOUDY; BILIRUBIN,URINE NEGATIVE (NEGATIVE); GLUCOSE, URINE NEGATIVE (NEGATIVE); KETONES,URINE NEGATIVE (NEGATIVE); LEUKOCYTE ESTERASE,URINE LARGE (NEGATIVE); NITRITE,URINE NEGATIVE (NEGATIVE); PROTEIN,URINE 100 mg/dL (NEGATIVE); UROBILINOGEN,URINE NEGATIVE mg/dL (<2.0)
[2017-02-22] MEDS ORDERED: LIDOCAINE 1% INJ-PF (10 MG/ML) 30 ML SDV INJ ONE (12:51)
[2017-02-22] MEDS ORDERED: CEFTRIAXONE INJ 1000 MG VIAL IM ONE (12:51)
[2017-02-22 14:34] VITALS: BP 148/83
== END 2017-02-22 14:34 ==
LOC: ER 10:08
DX: N30.01 Acute cystitis with hematuria (principal); I63.9 Cerebral infarction, unspecified; R47.01 Aphasia; I25.10 Atherosclerotic heart disease of native coronary artery without angina pectoris; I25.2 Old myocardial infarction; I10 Essential (primary) hypertension; E11.51 Type 2 diabetes mellitus with diabetic peripheral angiopathy without gangrene; Z95.810 Presence of automatic (implantable) cardiac defibrillator; Z95.5 Presence of coronary angioplasty implant and graft
CPT/HCPCS: 99285; 96372; 87086; 82962; 87088; 81001; 87186; 71010; J3490; J0696

== ENCOUNTER 2017-04-25 22:12 | Inpatient (IN) | payer MEDICARE, MEDICAID ==
[2017-04-25 23:27] LABS: ALANINE AMINOTRANSFERASE 16 U/L (21-72); ALBUMIN 3.9 g/dL (3.5-5.0); ALKALINE PHOSPHATASE 82 U/L (38-126); ANION GAP 13 (5-19); ASPARTATE AMINO TRANSFERASE 28 U/L (17-59); BILIRUBIN,DIRECT 0.5 mg/dL (0.0-0.4); BILIRUBIN,TOTAL 0.5 mg/dL (0.2-1.3); CALCIUM 10.6 mg/dL (8.4-10.2); CARBON DIOXIDE 33 mmol/L (22-30); CHLORIDE 122 mmol/L (98-107); CREATININE RESULT 1.96 mg/dL (0.52-1.25); GLUCOSE 247 mg/dL (75-110); POTASSIUM 4.6 mmol/L (3.6-5.0); SODIUM 168.4 mmol/L (137-145); TOTAL PROTEIN 9.4 g/dL (6.3-8.2)
[2017-04-25 23:29] LABS: ABSOLUTE MONOCYTES (AUTO) 0.3 10^3/uL (0.1-1.4); HEMOGLOBIN 10.5 g/dL (13.5-17.0); MONOCYTES % (AUTO) 3.3 % (3-13)
--- NOTE | 2017-04-25 23:30 | ER Document Report ---
ED General - General Stated Complaint: ALTERED MENTAL STATUS Time Seen by Provider: 04/25/17 22:23 Notes: Patient is a 76-year-old male with a history of recurrent Catalan catheter associated urinary tract infections and recurrent hematuria who presents by EMS for concerns of change in his mental status. Apparently at baseline patient will answer yes or no to some questions and stop doing this several hours ago. Staff has apparently also noted that patient is more somnolent than normal. Patient himself is nonverbal, unable to provide meaningful information. TRAVEL OUTSIDE OF THE [place] IN LAST 30 DAYS: No - Related Data Allergies/Adverse Reactions: No Known Allergies Allergy (Verified 02/22/17 11:56) Past Medical History - General Information source: Transfer Record, Emergency Med Personnel - Social History Smoking Status: Unknown if Ever Smoked Frequency of alcohol use: None Drug Abuse: None Lives with: Skilled Nursing Family History: None, Reviewed & Not Pertinent, Other - Unobtainable - Past Medical History Cardiac Medical History: Reports: Hx Congestive Heart Failure, Hx Coronary Artery Disease - stent x 1, Hx Heart Attack - 2003, Hx Hypercholesterolemia, Hx Hypertension, Hx Peripheral Vascular Disease Pulmonary Medical History: Reports: Hx Asthma - as child Denies: Hx Bronchitis, Hx COPD, Hx Pneumonia, Hx Tuberculosis Neurological Medical History: Denies: Hx Seizures Endocrine Medical History: Reports: Hx Diabetes Mellitus Type 2 Renal/ Medical History: Reports: Hx Benign Prostatic Hyperplasia GI Medical History: Reports: Hx Gastroesophageal Reflux Disease. Denies: Hx Hiatal Hernia, Hx Ulcer Musculoskeltal Medical History: Reports Hx Arthritis, Reports Hx Musculoskeletal Deformity - BKA Psychiatric Medical History: Reports: Hx Dementia Denies: Hx Attention Deficit Hyperactivity Disorder, Hx Bipolar Disorder, Hx Depression, Hx Schizophrenia Past Surgical History: Reports: Hx Abdominal Surgery, Hx Cardiac Surgery - defibrillator, Hx Internal Defibrillator, Hx Orthopedic Surgery - left BKA, Hx Vascular Surgery - left groin. Denies: Hx Open Heart Surgery - Immunizations Hx Diphtheria, Pertussis, Tetanus Vaccination: No Review of Systems - Review of Systems -: Yes ROS unobtainable due to patient's medical condition Physical Exam - Vital signs Interpretation: Normal Notes: PHYSICAL EXAMINATION: GENERAL: Somewhat cachectic, no acute distress HEAD: Atraumatic, normocephalic. EYES: Pupils equal round and reactive to light, sclera anicteric, conjunctiva are normal. ENT: nares patent, oropharynx clear without exudates. Dry mucous membranes. NECK: supple without lymphadenopathy LUNGS: Breath sounds clear to auscultation bilaterally and equal. No wheezes rales or rhonchi. HEART: Regular rate and rhythm without murmurs ABDOMEN: Soft, nontender, normoactive bowel sounds. No guarding, no rebound. No masses appreciated. EXTREMITIES: Left BKA. No appreciable edema NEUROLOGICAL: Moves all extremity spontaneously PSYCH: Nonverbal SKIN: Warm, Dry, normal turgor, no rashes or lesions noted. Course - Re-evaluation Re-evalutation: 04/25/17 23:29 Patient presents with apparent change in mental status although he is aphasic at baseline. Report is given by EMS simply states that staff states he normally at least answers yes or no to questions and is not doing that today. Patient is demented and unable to provide any meaningful history. He has a PEG tube, Catalan catheter, and a left BKA visible on examination. Patient is somewhat aggressive at any attempts upon completing additional physical examination. The Catalan catheter does have hematuria and he does have a history of chronic hematuria. Will change a Catalan catheter, obtain a urine specimen, obtain basic labs and reassess. 04/26/17 00:01 Initial laboratories do show hypernatremia, and acute renal failure with markedly elevated BUN which may be part of patient's change in mental status. Patient has a history of chronic hyponatremia overall unchanged from prior. Consistent with clinical dehydration on examination. Awaiting urinalysis. 04/26/17 00:06 Urinalysis does show findings consistent with an acute urinary tract infection. This was obtained from a clean Catalan catheter that was placed here in the emergency department. Cultures have been sent. Prior sensitivity data has been reviewed and patient does not have a history of resistance patterns. Will start on ceftriaxone and plan for admission to the hospital. 04/26/17 00:19 I have discussed this case with Dr. Riggins who is agreed to admit the patient. - Laboratory Result Diagrams: 04/25/17 23:00 04/25/17 23:00 Laboratory results interpreted by me: 04/25/17 04/25/17 04/25/17 23:00 23:00 23:25 RBC 4.09 L Hgb 10.5 L Hct 33.0 L MCH 25.6 L MCHC 31.7 L RDW 21.8 H Plt Count 107 L Lymphocytes % 12.2 L Eosinophils % 6.8 H Absolute Eosinophils 0.7 H Sodium 168.4 H Chloride 122 H Carbon Dioxide 33 H BUN 178 H Creatinine 1.96 H Est GFR ( Amer) 40 L Est GFR (Non-Af Amer) 33 L Glucose 247 H Calcium 10.6 H Direct Bilirubin 0.5 H ALT 16 L Total Protein 9.4 H Urine Protein 100 H Urine Blood LARGE H Ur Leukocyte Esterase LARGE H Urine Ascorbic Acid 40 H Discharge - Discharge Clinical Impression: Pyelonephritis, Uremia Renal failure Qualifiers: Renal failure chronicity: acute Acute renal failure type: unspecified Qualified Code(s): N17.9 - Acute kidney failure, unspecified Condition: Fair Disposition: ADMITTED INPATIENT Admitting Provider: Hospitalist - [facility] Admitted: Telemetry Referrals: CHAD HILLIARD MD [Primary Care Provider] - Follow up as needed
[2017-04-25 23:40] LABS: ABSOLUTE EOSINOPHILS # (AUTO) 0.7 10^3/uL (0.0-0.6); ABSOLUTE LYMPHOCYTES (AUTO) 1.2 10^3/uL (0.5-4.7); ABSOLUTE NEUT (AUTO) 7.6 10^3/uL (1.7-8.2); BASOPHILS % (AUTO) 0.2 % (0-2); BLOOD UREA NITROGEN 178 mg/dL (7-20); EOSINOPHILS % (AUTO) 6.8 % (0-6); HGB HCT DIFFERENCE -1.5; LYMPHOCYTES % (AUTO) 12.2 % (13-45); MEAN CORPUSCULAR HEMOGLOBIN 25.6 pg (27.0-33.4); MEAN CORPUSCULAR HGB CONC 31.7 g/dL (32.0-36.0); MEAN CORPUSCULAR VOLUME 81 fl (80-97); RED BLOOD COUNT 4.09 10^6/uL (4.35-5.55); RED CELL DISTRIBUTION WIDTH 21.8 % (11.5-14.0); SEGMENTED NEUTROPHILS % (AUTO) 77.5 % (42-78); WHITE BLOOD COUNT 9.8 10^3/uL (4.0-10.5)
[2017-04-25 23:59] LABS: AMORPHOUS SEDIMENT,URINE TRACE /HPF; APPEARANCE,URINE CLOUDY; BILIRUBIN,URINE NEGATIVE (NEGATIVE); GLUCOSE, URINE NEGATIVE (NEGATIVE); KETONES,URINE NEGATIVE (NEGATIVE); LEUKOCYTE ESTERASE,URINE LARGE (NEGATIVE); NITRITE,URINE NEGATIVE (NEGATIVE); PROTEIN,URINE 100 mg/dL (NEGATIVE); URINE SPECIFIC GRAVITY 1.011; UROBILINOGEN,URINE NEGATIVE mg/dL (<2.0)
[2017-04-25] MEDS ORDERED: RINGERS SOLUTION,LACTATED 1,000 ML IV ONE (23:59)
[2017-04-26] MEDS ORDERED: CEFTRIAXONE 1 GM/D5W RTU 1 GM/50 ML RTUPB IV ONE (00:05)
[2017-04-26] MEDS ORDERED: ACETAMINOPHEN 325 MG TABLET PEG PRN (00:47)
[2017-04-26] MEDS ORDERED: MAGNESIUM HYDROXIDE SUSP 30 ML UDCUP PEG PRN (00:49)
[2017-04-26] MEDS ORDERED: DEXTROSE 40% GEL 15 GM TUBE PO PRN ×2 (00:49)
[2017-04-26] MEDS ORDERED: IPRATROPIUM/ALBUTEROL 0.5-2.5 MG/3 ML AMPUL NEB PRN (00:49)
[2017-04-26] MEDS ORDERED: DEXTROSE 50%-WATER 25 GM/50 ML DISP.SYRIN IV PRN ×2 (00:49)
[2017-04-26] MEDS ORDERED: GLUCAGON,HUMAN RECOMB 1 MG INJ IM PRN (00:49)
[2017-04-26] MEDS: 1/2 NORMAL SALINE 1,000 ML IV SCH ×3 (03:15→11:39)
[2017-04-26] MEDS ORDERED: NORMAL SALINE 1000 ML 2,000 ML IV ONE (04:41)
--- NOTE | 2017-04-26 04:50 | PDOC H&P ---
History of Present Illness Admission Date/PCP: 04/26/17 00:49 CHAD HILLIARD Patient complains of: Hypotension History of Present Illness: SEUN TOTH is a 76 year old male who is a long-term [facility] resident with a past medical history of advanced dementia, CVA with upper extremity contracture, dysphasia requiring PEG tube, aphasia, diabetes, left BKA , peripheral vascular disease, chronic Catalan with hematuria and recurrent renal failure with hypernatremia. He is noted by the [facility] staff to have low- volume hematuria and referred to the hospitalist for admission. In the emergency room is an extremely poor historian but labs reveal acute on chronic renal failure severe hypernatremia and gross hematuria with clots following replacement of Catalan catheter resulting in 2-1/2 L of diuresis. Patient is essentially nonverbal but able to state his name and denied pain. Past Medical History Cardiac Medical History: Reports: Congestive Heart Failure, Coronary Artery Disease - stent x 1, Myocardial Infarction - 2003, Hyperlipidema, Hypertension, Peripheral Vascular Disease Pulmonary Medical History: Reports: Asthma - as child Denies: Bronchitis, Chronic Obstructive Pulmonary Disease (COPD), Pneumonia, Tuberculosis Neurological Medical History: Denies: Seizures Endocrine Medical History: Reports: Diabetes Mellitus Type 2 GI Medical History: Reports: Gastroesophageal Reflux Disease Denies: Hiatal Hernia Musculoskeltal Medical History: Reports: Arthritis Psychiatric Medical History: Reports: Dementia Denies: Attention Deficit Hyperactivity Disorder, Bipolar Disorder, Depression Hematology: Reports: Anemia Denies: Sickle Cell Disease Past Surgical History Past Surgical History: Reports: Internal Defibrillator, Orthopedic Surgery - left BKA, Vascular Surgery - left groin Social History Information Source: [facility] Records Lives with: Long Term Smoking Status: Unknown if Ever Smoked Frequency of Alcohol Use: None Hx Recreational Drug Use: No Drugs: None Hx Prescription Drug Abuse: No - Advance Directive Resuscitation Status: Do Not Resuscitate Family History Family History: Other - Unobtainable Parental Family History Reviewed: Yes Children Family History Reviewed: Yes Sibling(s) Family History Reviewed.: Yes Medication/Allergy Home Medications: Acetaminophen [Tylenol 325 mg Tablet] 650 mg PEG Q6HP PRN 01/04/17 Aspirin [Aspirin 81 mg Chewable Tablet] 81 mg PEG DAILY 01/04/17 Atorvastatin Calcium [Lipitor 10 mg Tablet] 10 mg PEG DAILY 01/04/17 Clopidogrel Bisulfate [Clopidogrel] 75 mg PEG DAILY 01/04/17 Folic Acid 1 mg PEG DAILY 01/04/17 Metformin HCl [Glucophage] 500 mg PEG BID 01/04/17 Travoprost (Benzalkonium) [Travatan 0.004% Eye Drop] 5 ml OD QHS 01/04/17 Carvedilol [Coreg 6.25 mg Tablet] 25 mg PEG Q12 tablet 01/10/17 Ferrous Sulfate [Ferrous Sulfate Liquid 300 mg/5 ml Udcup] 300 mg PEG BID udc 01/10/17 Losartan Potassium [Cozaar 25 mg Tablet] 50 mg PO Q12 tablet 01/10/17 Amox Tr/Potassium Clavulanate [Augmentin Es 600 mg-42.9 mg Susp 75 ml] 10 ml PEG BID 02/05/17 Doxazosin Mesylate [Cardura 2 mg Tablet] 2 mg PEG DAILY 02/05/17 Finasteride [Proscar 5 mg Tablet] 5 mg PEG DAILY 02/05/17 Latanoprost [Xalatan 0.005% Oph Soln 2.5 ml] 1 drop OP QHS 02/05/17 Multivit-Minerals/Ferrous Gluc [Centrum Multivit-Mineral Liq] 9 mg PEG DAILY Polyethylene Glycol 3350 [Miralax Powder 17 gm/Packet] 17 gm PEG DAILY 02/05/17 Nitroglycerin [Nitro-Dur 5 mg (0.2 mg/Hr) Transdermal Patch] 1 each TD QAM Spironolactone [Aldactone 25 mg Tablet] 25 mg PEG DAILY 02/09/17 Sulfamethoxazole/Trimethoprim [Sulfamethoxazole-Tmp Susp] 20 ml PEG BID #400 ml 02/22/17 Allergies/Adverse Reactions: No Known Allergies Allergy (Verified 02/22/17 11:56) Review of Systems ROS unobtainable: Due to mental status Physical Exam Vital Signs: Temp Pulse Resp BP Pulse Ox 97.4 F 84 16 89/55 L 96 04/26/17 03:50 04/26/17 03:50 04/26/17 03:50 04/26/17 03:50 04/26/17 03:50 Intake & Output 04/24/17 04/25/17 04/26/17 11:59 11:59 11:59 Weight 70.5 kg General appearance: PRESENT: disheveled, mild distress, thin, other - Desiccated , cachexia, temporal wasting with contractures Head exam: PRESENT: atraumatic, normocephalic Eye exam: PRESENT: conjunctiva pink, EOMI, PERRLA. ABSENT: scleral icterus Ear exam: PRESENT: normal external ear exam Mouth exam: PRESENT: dry mucosa, tongue midline Neck exam: PRESENT: carotid bruit Respiratory exam: PRESENT: clear to auscultation joaquin. ABSENT: rales, rhonchi, wheezes Cardiovascular exam: PRESENT: RRR. ABSENT: diastolic murmur, rubs, systolic murmur Pulses: PRESENT: normal [place] pedis pul Vascular exam: PRESENT: normal capillary refill GI/Abdominal exam: PRESENT: normal bowel sounds, soft. ABSENT: distended, guarding, mass, organolmegaly, rebound, tenderness Rectal exam: PRESENT: deferred Neurological exam: PRESENT: awake, oriented to person, aphasic Psychiatric exam: PRESENT: appropriate affect, normal mood. ABSENT: homicidal ideation, suicidal ideation Skin exam: PRESENT: dry, intact, warm. ABSENT: cyanosis, rash Assessment & Plan - Diagnosis (1) Urinary tract infection with hematuria Is this a current diagnosis for this admission?: Yes Plan: Empiric antibiotics, hypotonic IV fluid challenge repositioning and replacement of Catalan catheter follow-up blood and urine culture. (2) Hypotension Is this a current diagnosis for this admission?: Yes Plan: Secondary to prerenal azotemia and sepsis, empiric antibiotics IV fluid challenge reevaluate and consideration of pressor. (3) Hypernatremia Is this a current diagnosis for this admission?: Yes Plan: Suspect patient not receiving free water via PEG. 250 mL tap water flush per PEG every 6 hours ordered, follow-up serial chemistries. (4) Renal failure Qualifiers: Renal failure chronicity: acute Acute renal failure type: unspecified Qualified Code(s): N17.9 - Acute kidney failure, unspecified Is this a current diagnosis for this admission?: Yes Plan: Multifactorial secondary to sepsis and prerenal azotemia. Empiric antibiotics and IV fluid challenge reevaluate chemistry avoiding nephrotoxic meds and doses. - Time Time Spent: 50 to 70 Minutes - Inpatient Certification Medical Necessity: Need Close Monitoring Due to Risk of Patient Decompensation
[2017-04-26] MEDS: HEPARIN SOD (PORCINE) 5,000 UNIT/ML 1 ML SYRINGE SUBCUT SCH ×3 (05:51→22:45)
--- NOTE | 2017-04-26 08:05 | EKG REPORT ---
SEVERITY:- ABNORMAL ECG - SINUS RHYTHM FIRST DEGREE AV BLOCK NONSPECIFIC INTRAVENTRICULAR CONDUCTION DELAY INFERIOR -LATERAL INFARCT, AGE INDETERMINATE : Confirmed by: Regulo Lauren MD 26-Apr-2017 08:05:01
[2017-04-26] MEDS: ASPIRIN 81 MG TABLET, CHEWABLE PEG SCH (09:43)
[2017-04-26] MEDS: POLYETHYLENE GLYCOL 3350 POWDER 17 GM/1 PACKET PEG SCH (09:43)
[2017-04-26] MEDS: FOLIC ACID 1 MG TABLET PEG SCH (09:43)
[2017-04-26] MEDS: FERROUS SULFATE LIQUID 300 MG/5 ML UDC PEG SCH ×2 (09:44→17:39)
[2017-04-26] MEDS: CARVEDILOL 6.25 MG TABLET PEG SCH ×2 (09:44→22:57)
[2017-04-26] MEDS: DOXAZOSIN MESYLATE 2 MG TABLET PEG SCH (09:44)
[2017-04-26] MEDS ORDERED: FINASTERIDE 5 MG TABLET PO SCH (10:00)
[2017-04-26] MEDS: INSULIN LISPRO 100 UNIT/ML 3 ML VIAL SUBCUT PRN ×2 (12:34→17:38)
--- NOTE | 2017-04-26 13:17 | PDOC PROGRESS REPORT ---
Subjective Progress Note for:: 04/26/17 Subjective:: Patient is confused but denies any complaints. Physical Exam Vital Signs: Temp Pulse Resp BP Pulse Ox 97.4 F 75 16 174/119 H 83 L 04/26/17 11:48 04/26/17 11:48 04/26/17 11:48 04/26/17 11:48 04/26/17 11:48 Intake & Output 04/25/17 04/26/17 04/27/17 06:59 06:59 06:59 Intake Total 2450 Output Total 650 Balance 1800 Weight 70.5 kg General appearance: PRESENT: no acute distress Eye exam: PRESENT: conjunctiva pink. ABSENT: scleral icterus Mouth exam: PRESENT: moist, tongue midline Neck exam: ABSENT: JVD Respiratory exam: PRESENT: clear to auscultation joaquin. ABSENT: rales, rhonchi, wheezes Cardiovascular exam: PRESENT: RRR. ABSENT: diastolic murmur, rubs, systolic murmur GI/Abdominal exam: PRESENT: normal bowel sounds, soft, other - PEG tube in place.. ABSENT: distended, guarding, mass, organolmegaly, rebound, tenderness Extremities exam: PRESENT: other - Left BKA. ABSENT: calf tenderness, clubbing , pedal edema Neurological exam: PRESENT: altered, awake. ABSENT: oriented to person, oriented to place, oriented to time, oriented to situation Psychiatric exam: PRESENT: flat affect Skin exam: PRESENT: dry, intact, warm. ABSENT: cyanosis, rash Assessment & Plan - Diagnosis (1) Hypernatremia Is this a current diagnosis for this admission?: Yes Plan: Patient still appears to be volume depleted and will continue with IV fluids. Will restart back his PEG tube feedings and increase the free water flushes. (2) Renal failure Qualifiers: Renal failure chronicity: acute Acute renal failure type: unspecified Qualified Code(s): N17.9 - Acute kidney failure, unspecified Is this a current diagnosis for this admission?: Yes Plan: Patient has acute on chronic stage II renal failure. (3) Anemia Qualifiers: Anemia type: unspecified type Qualified Code(s): D64.9 - Anemia, unspecified Is this a current diagnosis for this admission?: Yes (4) Chronic systolic (congestive) heart failure Is this a current diagnosis for this admission?: Yes Plan: Patient is 5 depleted. We will continue with IV fluids and watch closely. (5) Diabetes Qualifiers: Diabetes mellitus type: type 2 Diabetes mellitus complication status: with circulatory complication Diabetes mellitus complication detail: with other circulatory complications Diabetes mellitus machine erector insulin use: without machine erector use Qualified Code(s): E11.59 - Type 2 diabetes mellitus with other circulatory complications Is this a current diagnosis for this admission?: Yes Plan: Continue with sliding scale insulin. (6) Dyslipidemia Is this a current diagnosis for this admission?: Yes (7) Peripheral vascular disease Is this a current diagnosis for this admission?: Yes (8) CAD (coronary artery disease) Qualifiers: Coronary Disease-Associated Artery/Lesion type: [place] artery [place] vs. transplanted heart: [place] heart Associated angina: without angina Qualified Code(s): I25.10 - Atherosclerotic heart disease of [place] coronary artery without angina pectoris Is this a current diagnosis for this admission?: Yes (9) HTN (hypertension) Qualifiers: Hypertension type: essential hypertension Qualified Code(s): I10 - Essential (primary) hypertension Is this a current diagnosis for this admission?: Yes (10) Urinary tract infection with hematuria Is this a current diagnosis for this admission?: Yes Plan: Continue with Rocephin. - Time Time Spent with patient: 25-34 minutes - Inpatient Certification Medical Necessity: Need For IV Fluids, Need for IV Antibiotics
[2017-04-26] MEDS: CEFTRIAXONE 1 GM/D5W RTU 1 GM/50 ML RTUPB IV SCH (22:56)
[2017-04-26] MEDS: LATANOPROST 0.005% OPH SOLN 2.5 ML OP SCH (22:56)
[2017-04-27] MEDS: INSULIN LISPRO 100 UNIT/ML 3 ML VIAL SUBCUT PRN ×4 (01:25→23:12)
[2017-04-27] MEDS: HEPARIN SOD (PORCINE) 5,000 UNIT/ML 1 ML SYRINGE SUBCUT SCH ×3 (05:19→23:06)
[2017-04-27 07:54] LABS: ABSOLUTE EOSINOPHILS # (AUTO) 0.5 10^3/uL (0.0-0.6); ABSOLUTE LYMPHOCYTES (AUTO) 1.1 10^3/uL (0.5-4.7); ABSOLUTE MONOCYTES (AUTO) 0.3 10^3/uL (0.1-1.4); ABSOLUTE NEUT (AUTO) 4.1 10^3/uL (1.7-8.2); BASOPHILS % (AUTO) 0.4 % (0-2); EOSINOPHILS % (AUTO) 7.7 % (0-6); HEMATOCRIT 26.8 % (37.9-51.0); HGB HCT DIFFERENCE -1.6; LYMPHOCYTES % (AUTO) 18.7 % (13-45); MEAN CORPUSCULAR HEMOGLOBIN 25.4 pg (27.0-33.4); MEAN CORPUSCULAR HGB CONC 31.3 g/dL (32.0-36.0); MEAN CORPUSCULAR VOLUME 81 fl (80-97); MONOCYTES % (AUTO) 4.6 % (3-13); RED CELL DISTRIBUTION WIDTH 21.1 % (11.5-14.0); SEGMENTED NEUTROPHILS % (AUTO) 68.6 % (42-78)
[2017-04-27 08:17] LABS: HEMOGLOBIN 8.4 g/dL (13.5-17.0)
[2017-04-27 08:25] LABS: BLOOD UREA NITROGEN 111 mg/dL (7-20); CALCIUM 9.7 mg/dL (8.4-10.2); CARBON DIOXIDE 26 mmol/L (22-30); CHLORIDE 129 mmol/L (98-107); CREATININE RESULT 1.26 mg/dL (0.52-1.25); GLUCOSE 168 mg/dL (75-110); POTASSIUM 4.4 mmol/L (3.6-5.0)
[2017-04-27 08:37] LABS: ANION GAP 13 (5-19); SODIUM 167.7 mmol/L (137-145)
[2017-04-27] MEDS: POLYETHYLENE GLYCOL 3350 POWDER 17 GM/1 PACKET PEG SCH (11:04)
[2017-04-27] MEDS: DOXAZOSIN MESYLATE 2 MG TABLET PEG SCH (11:05)
[2017-04-27] MEDS: FOLIC ACID 1 MG TABLET PEG SCH (11:05)
[2017-04-27] MEDS: ASPIRIN 81 MG TABLET, CHEWABLE PEG SCH (11:05)
[2017-04-27] MEDS: FERROUS SULFATE LIQUID 300 MG/5 ML UDC PEG SCH ×2 (11:07→18:08)
[2017-04-27] MEDS: CARVEDILOL 6.25 MG TABLET PEG SCH ×2 (11:07→23:03)
--- NOTE | 2017-04-27 12:13 | PDOC PROGRESS REPORT ---
Subjective Progress Note for:: 04/27/17 Subjective:: Patient is confused but denies any complaints. Physical Exam Vital Signs: Temp Pulse Resp BP Pulse Ox 98.7 F 75 16 120/70 98 04/27/17 07:50 04/27/17 11:00 04/27/17 08:00 04/27/17 07:50 04/27/17 08:00 Intake & Output 04/26/17 04/27/17 04/28/17 06:59 06:59 06:59 Intake Total 2450 1717 3410 Output Total 650 2725 Balance 1800 -1008 3410 Weight 70.5 kg 68.1 kg General appearance: PRESENT: no acute distress Eye exam: PRESENT: conjunctiva pink. ABSENT: scleral icterus Ear exam: PRESENT: normal external ear exam Mouth exam: PRESENT: moist, tongue midline Neck exam: ABSENT: JVD Respiratory exam: PRESENT: clear to auscultation joaquin. ABSENT: rales, rhonchi, wheezes Cardiovascular exam: PRESENT: RRR, systolic murmur - 2/6 systolic murmur.. ABSENT: diastolic murmur, rubs GI/Abdominal exam: PRESENT: normal bowel sounds, soft. ABSENT: distended, guarding, mass, organolmegaly, rebound, tenderness Extremities exam: PRESENT: other - Left BKA.. ABSENT: calf tenderness, clubbing , pedal edema Neurological exam: PRESENT: altered, awake, CN II-XII grossly intact. ABSENT: oriented to person, oriented to place, oriented to time, oriented to situation, motor sensory deficit Psychiatric exam: PRESENT: flat affect Skin exam: PRESENT: dry, intact, warm. ABSENT: cyanosis, rash Results Laboratory Results: 04/27/17 06:59 04/27/17 06:59 04/27/17 04/27/17 06:59 06:59 WBC 6.0 RBC 3.30 L Hgb 8.4 L D Hct 26.8 L MCV 81 MCH 25.4 L MCHC 31.3 L RDW 21.1 H Plt Count 90 L Seg Neutrophils % 68.6 Lymphocytes % 18.7 Monocytes % 4.6 Eosinophils % 7.7 H Basophils % 0.4 Absolute Neutrophils 4.1 Absolute Lymphocytes 1.1 Absolute Monocytes 0.3 Absolute Eosinophils 0.5 Absolute Basophils 0.0 Sodium 167.7 H Potassium 4.4 Chloride 129 H Carbon Dioxide 26 Anion Gap 13 BUN 111 H Creatinine 1.26 H Est GFR ( Amer) > 60 Est GFR (Non-Af Amer) 56 L Glucose 168 H Calcium 9.7 Assessment & Plan - Diagnosis (1) Hypernatremia Is this a current diagnosis for this admission?: Yes Plan: Patient is still confused. His sodium remains elevated. Will start D5 half- normal saline today. Due with free water flushes with PEG tube feedings. (2) Renal failure Qualifiers: Renal failure chronicity: acute Acute renal failure type: unspecified Qualified Code(s): N17.9 - Acute kidney failure, unspecified Is this a current diagnosis for this admission?: Yes Plan: Patient has acute on chronic stage II renal failure. Creatinine has improved. (3) Anemia Qualifiers: Anemia type: unspecified type Qualified Code(s): D64.9 - Anemia, unspecified Is this a current diagnosis for this admission?: Yes (4) Chronic systolic (congestive) heart failure Is this a current diagnosis for this admission?: Yes Plan: We will continue with IV fluids and watch closely. (5) Diabetes Qualifiers: Diabetes mellitus type: type 2 Diabetes mellitus complication status: with circulatory complication Diabetes mellitus complication detail: with other circulatory complications Diabetes mellitus terminal makeup operator insulin use: without terminal makeup operator use Qualified Code(s): E11.59 - Type 2 diabetes mellitus with other circulatory complications Is this a current diagnosis for this admission?: Yes Plan: Continue with sliding scale insulin. (6) Dyslipidemia Is this a current diagnosis for this admission?: Yes (7) Peripheral vascular disease Is this a current diagnosis for this admission?: Yes (8) CAD (coronary artery disease) Qualifiers: Coronary Disease-Associated Artery/Lesion type: [place] artery [place] vs. transplanted heart: [place] heart Associated angina: without angina Qualified Code(s): I25.10 - Atherosclerotic heart disease of [place] coronary artery without angina pectoris Is this a current diagnosis for this admission?: Yes (9) HTN (hypertension) Qualifiers: Hypertension type: essential hypertension Qualified Code(s): I10 - Essential (primary) hypertension Is this a current diagnosis for this admission?: Yes (10) Urinary tract infection with hematuria Is this a current diagnosis for this admission?: Yes Plan: Continue with Rocephin. - Time Time Spent with patient: 25-34 minutes - Inpatient Certification Medical Necessity: Need For IV Fluids
[2017-04-27] MEDS: DEXTROSE 5%-1/2 NORMAL SALINE 1,000 ML IV PRN (16:49)
[2017-04-27] MEDS: CEFTRIAXONE 1 GM/D5W RTU 1 GM/50 ML RTUPB IV SCH (23:02)
[2017-04-27] MEDS: LATANOPROST 0.005% OPH SOLN 2.5 ML OP SCH (23:03)
[2017-04-28] MEDS: HEPARIN SOD (PORCINE) 5,000 UNIT/ML 1 ML SYRINGE SUBCUT SCH ×3 (05:25→23:00)
[2017-04-28 06:03] LABS: ANION GAP 11 (5-19); CALCIUM 9.7 mg/dL (8.4-10.2); CARBON DIOXIDE 26 mmol/L (22-30); CHLORIDE 129 mmol/L (98-107); CREATININE RESULT 1.06 mg/dL (0.52-1.25); GLUCOSE 183 mg/dL (75-110); HEMATOCRIT 23.8 % (37.9-51.0); HGB HCT DIFFERENCE -0.4; MEAN CORPUSCULAR HEMOGLOBIN 26.4 pg (27.0-33.4); MEAN CORPUSCULAR HGB CONC 32.8 g/dL (32.0-36.0); MEAN CORPUSCULAR VOLUME 81 fl (80-97); POTASSIUM 4.5 mmol/L (3.6-5.0); RED BLOOD COUNT 2.96 10^6/uL (4.35-5.55); RED CELL DISTRIBUTION WIDTH 21.1 % (11.5-14.0); SODIUM 166.2 mmol/L (137-145); WHITE BLOOD COUNT 4.8 10^3/uL (4.0-10.5)
[2017-04-28 06:12] LABS: BLOOD UREA NITROGEN 78 mg/dL (7-20)
[2017-04-28 06:15] LABS: HEMOGLOBIN 7.8 g/dL (13.5-17.0)
[2017-04-28 07:15] LABS: BASOPHILS % (MANUAL) 0 % (0-2); EOSINOPHILS % (MANUAL) 8 % (0-6); LYMPHOCYTES % (MANUAL) 19 % (13-45); TOTAL CELLS COUNTED 100
[2017-04-28 07:16] LABS: ANISOCYTOSIS 3+
[2017-04-28 07:17] LABS: TARGET CELLS SLIGHT
--- NOTE | 2017-04-28 09:59 | PDOC PROGRESS REPORT ---
Subjective Progress Note for:: 04/28/17 Subjective:: Patient with advanced dementia and unable to provide meaningful information. Nursing staff reports no respiratory distress, temperature spikes, nausea or vomiting, or diarrhea. No agitation reported as well nor aggressive behavior but has reported that he had refused IV line and fluid. This morning IV fluid has been resumed without a problem. Physical Exam Vital Signs: Temp Pulse Resp BP Pulse Ox 97.5 F 74 16 127/76 H 99 04/27/17 23:51 04/28/17 08:40 04/28/17 08:40 04/27/17 23:51 04/27/17 23:51 Intake & Output 04/27/17 04/28/17 04/29/17 06:59 06:59 06:59 Intake Total 1717 7065 1020 Output Total 2725 1100 Balance -1008 5965 1020 Weight 68.1 kg 68.1 kg General appearance: PRESENT: no acute distress, cooperative Head exam: PRESENT: normocephalic Eye exam: PRESENT: EOMI Mouth exam: PRESENT: moist, neck supple Neck exam: ABSENT: JVD Respiratory exam: PRESENT: clear to auscultation joaquin - Poor effort. ABSENT: rhonchi, wheezes Cardiovascular exam: PRESENT: RRR. ABSENT: gallop GI/Abdominal exam: PRESENT: hypoactive bowel sounds, soft. ABSENT: distended Extremities exam: PRESENT: other - BKA and left. ABSENT: pedal edema Neurological exam: PRESENT: alert, awake Skin exam: PRESENT: dry, warm. ABSENT: cyanosis Results Laboratory Results: 04/28/17 05:19 04/28/17 05:19 04/28/17 04/28/17 05:19 05:19 WBC 4.8 RBC 2.96 L Hgb 7.8 L Hct 23.8 L MCV 81 MCH 26.4 L MCHC 32.8 RDW 21.1 H Plt Count 86 L Seg Neutrophils % Not Reportable Lymphocytes % Not Reportable Monocytes % Not Reportable Eosinophils % Not Reportable Basophils % Not Reportable Absolute Neutrophils Not Reportable Absolute Lymphocytes Not Reportable Absolute Monocytes Not Reportable Absolute Eosinophils Not Reportable Absolute Basophils Not Reportable Sodium 166.2 H Potassium 4.5 Chloride 129 H Carbon Dioxide 26 Anion Gap 11 BUN 78 H D Creatinine 1.06 Est GFR ( Amer) > 60 Est GFR (Non-Af Amer) > 60 Glucose 183 H Calcium 9.7 Assessment & Plan - Diagnosis (1) Hypernatremia Is this a current diagnosis for this admission?: Yes (2) ARF (acute renal failure) Qualifiers: Acute renal failure type: unspecified Qualified Code(s): N17.9 - Acute kidney failure, unspecified Is this a current diagnosis for this admission?: Yes (3) Hematuria Qualifiers: Hematuria type: unspecified type Qualified Code(s): R31.9 - Hematuria, unspecified Is this a current diagnosis for this admission?: Yes (4) Anemia Qualifiers: Anemia type: unspecified type Qualified Code(s): D64.9 - Anemia, unspecified Is this a current diagnosis for this admission?: Yes (5) CVA (cerebral vascular accident) Qualifiers: CVA mechanism: unspecified Qualified Code(s): I63.9 - Cerebral infarction, unspecified Is this a current diagnosis for this admission?: Yes (6) Chronic systolic (congestive) heart failure Is this a current diagnosis for this admission?: Yes (7) Diabetes Qualifiers: Diabetes mellitus type: type 2 Diabetes mellitus complication status: with circulatory complication Diabetes mellitus complication detail: with other circulatory complications Diabetes mellitus intermediate designer insulin use: without care home use Qualified Code(s): E11.59 - Type 2 diabetes mellitus with other circulatory complications Is this a current diagnosis for this admission?: Yes (8) Dyslipidemia Is this a current diagnosis for this admission?: Yes (9) Dysphagia, late effect of cerebrovascular disease Is this a current diagnosis for this admission?: Yes (10) Peripheral vascular disease Is this a current diagnosis for this admission?: Yes (11) CAD (coronary artery disease) Qualifiers: Coronary Disease-Associated Artery/Lesion type: [place] artery [place] vs. transplanted heart: [place] heart Associated angina: without angina Qualified Code(s): I25.10 - Atherosclerotic heart disease of [place] coronary artery without angina pectoris Is this a current diagnosis for this admission?: Yes (12) HTN (hypertension) Qualifiers: Hypertension type: essential hypertension Qualified Code(s): I10 - Essential (primary) hypertension Is this a current diagnosis for this admission?: Yes (13) History of left below knee amputation Is this a current diagnosis for this admission?: Yes - Time Time Spent with patient: 25-34 minutes - Plan Summary Plan Summary: Continue free water through the feeding tube. Resume intravenous fluids. Monitor serum sodium. In the meantime discontinue he is ARB completely. We will monitor hematocrit if it continues to fall we will transfuse. We will do a urine culture. Keep current antibiotics for now. Reportedly the area was likely due to trauma during Catalan catheter insertion. Continue to monitor creatinine. We will check a KUB for impaction. We will likewise do stool for occult blood. Give proton pump inhibitor.
[2017-04-28] MEDS ORDERED: LANSOPRAZOLE 30 MG TAB.RAP.DR PO ONE (10:30)
[2017-04-28] MEDS: DOXAZOSIN MESYLATE 2 MG TABLET PEG SCH (10:52)
[2017-04-28] MEDS: POLYETHYLENE GLYCOL 3350 POWDER 17 GM/1 PACKET PEG SCH (10:52)
[2017-04-28] MEDS: CARVEDILOL 6.25 MG TABLET PEG SCH ×2 (10:53→22:56)
[2017-04-28] MEDS: ASPIRIN 81 MG TABLET, CHEWABLE PEG SCH (10:53)
[2017-04-28] MEDS: FOLIC ACID 1 MG TABLET PEG SCH (10:53)
[2017-04-28] MEDS: FERROUS SULFATE LIQUID 300 MG/5 ML UDC PEG SCH ×2 (10:57→17:26)
--- NOTE | 2017-04-28 15:12 | RADIOLOGY REPORT (SQ) ---
EXAM DESCRIPTION: KUB/ABDOMEN (SINGLE VIEW) COMPLETED DATE/TIME: 04/28/2017 2:57 pm REASON FOR STUDY: IMPACTION COMPARISON: 01/07/2017 NUMBER OF VIEWS: One view. TECHNIQUE: Supine radiographic image of the abdomen acquired. LIMITATIONS: None. FINDINGS: BOWEL GAS PATTERN: Nonobstructive. There is a large amount of fecal material in the rectu m and elsewhere in the colon. CALCIFICATIONS: No suspicious calcifications. SOFT TISSUES: No gross mass or suggestion of organomegaly. HARDWARE: Gastrostomy tube is present. BONES: No acute fracture. No worrisome bone lesions. OTHER: No other significant finding. IMPRESSION: Constipation/impaction. TECHNICAL DOCUMENTATION: JOB ID: [id number] [employer]- All Rights Reserved
[2017-04-28] MEDS: DEXTROSE 5%-1/2 NORMAL SALINE 1,000 ML IV PRN (15:29)
[2017-04-28] MEDS: LANSOPRAZOLE 30 MG TAB.RAP.DR PO SCH (17:26)
[2017-04-28] MEDS: INSULIN LISPRO 100 UNIT/ML 3 ML VIAL SUBCUT PRN (22:56)
[2017-04-28] MEDS: LATANOPROST 0.005% OPH SOLN 2.5 ML OP SCH (22:56)
[2017-04-28] MEDS: CEFTRIAXONE 1 GM/D5W RTU 1 GM/50 ML RTUPB IV SCH (22:56)
[2017-04-29] MEDS: LANSOPRAZOLE 30 MG TAB.RAP.DR PO SCH ×2 (05:09→17:13)
[2017-04-29] MEDS: HEPARIN SOD (PORCINE) 5,000 UNIT/ML 1 ML SYRINGE SUBCUT SCH ×3 (05:16→21:01)
[2017-04-29 05:42] LABS: ABSOLUTE EOSINOPHILS # (AUTO) 0.5 10^3/uL (0.0-0.6); ABSOLUTE LYMPHOCYTES (AUTO) 1.1 10^3/uL (0.5-4.7); ABSOLUTE MONOCYTES (AUTO) 0.3 10^3/uL (0.1-1.4); ABSOLUTE NEUT (AUTO) 4.6 10^3/uL (1.7-8.2); BASOPHILS % (AUTO) 0.4 % (0-2); EOSINOPHILS % (AUTO) 7.1 % (0-6); HEMATOCRIT 25.9 % (37.9-51.0); HEMOGLOBIN 8.5 g/dL (13.5-17.0); HGB HCT DIFFERENCE -0.4; LYMPHOCYTES % (AUTO) 17.3 % (13-45); MEAN CORPUSCULAR HEMOGLOBIN 26.7 pg (27.0-33.4); MEAN CORPUSCULAR HGB CONC 32.8 g/dL (32.0-36.0); MEAN CORPUSCULAR VOLUME 82 fl (80-97); RED BLOOD COUNT 3.18 10^6/uL (4.35-5.55); RED CELL DISTRIBUTION WIDTH 21.2 % (11.5-14.0); SEGMENTED NEUTROPHILS % (AUTO) 70.2 % (42-78); WHITE BLOOD COUNT 6.5 10^3/uL (4.0-10.5)
[2017-04-29 05:43] LABS: ANION GAP 9 (5-19); CALCIUM 9.2 mg/dL (8.4-10.2); CARBON DIOXIDE 28 mmol/L (22-30); CHLORIDE 126 mmol/L (98-107); CREATININE RESULT 0.98 mg/dL (0.52-1.25); GLUCOSE 125 mg/dL (75-110); POTASSIUM 4.5 mmol/L (3.6-5.0); SODIUM 163.3 mmol/L (137-145)
[2017-04-29 05:54] LABS: BLOOD UREA NITROGEN 54 mg/dL (7-20)
[2017-04-29 06:27] LABS: ANISOCYTOSIS 3+; HYPOCHROMASIA 1+; OVALOCYTES SLIGHT; POIKILOCYTOSIS 1+; SCHISTOCYTES SLIGHT
[2017-04-29] MEDS: DEXTROSE 5%-WATER 1000 ML 1,000 ML IV PRN (10:27)
[2017-04-29] MEDS: CARVEDILOL 6.25 MG TABLET PEG SCH ×2 (10:35→21:12)
--- NOTE | 2017-04-29 10:35 | PDOC PROGRESS REPORT ---
Subjective Progress Note for:: 04/29/17 Subjective:: Patient will have episodes of being uncooperative but eventually will agree later. He did agree to have a KUB done and IV fluid. KUB showed constipation and possible impaction. Sodium trending slowly down. No reported respiratory distress, particular spikes, chills nor fever. Physical Exam Vital Signs: Temp Pulse Resp BP Pulse Ox 97.2 F 86 20 136/87 H 93 04/29/17 08:00 04/29/17 08:00 04/29/17 08:00 04/29/17 08:00 04/29/17 08:00 Intake & Output 04/28/17 04/29/17 04/30/17 06:59 06:59 06:59 Intake Total 7065 2815 1954 Output Total 1100 3380 Balance 5965 -565 195 Weight 68.1 kg 64 kg General appearance: PRESENT: no acute distress, cooperative Head exam: PRESENT: normocephalic Eye exam: PRESENT: EOMI Mouth exam: PRESENT: moist, neck supple Neck exam: ABSENT: JVD Respiratory exam: PRESENT: clear to auscultation joaquin - Poor effort. ABSENT: rhonchi, wheezes Cardiovascular exam: PRESENT: RRR. ABSENT: gallop GI/Abdominal exam: PRESENT: hypoactive bowel sounds, soft Extremities exam: PRESENT: other - BKA on the left. ABSENT: pedal edema Neurological exam: PRESENT: altered Psychiatric exam: ABSENT: agitated Focused psych exam: ABSENT: restlessness Skin exam: PRESENT: dry, warm. ABSENT: cyanosis Results Laboratory Results: 04/29/17 05:02 04/29/17 05:02 04/29/17 04/29/17 05:02 05:02 WBC 6.5 RBC 3.18 L Hgb 8.5 L Hct 25.9 L MCV 82 MCH 26.7 L MCHC 32.8 RDW 21.2 H Plt Count 78 L Seg Neutrophils % 70.2 Lymphocytes % 17.3 Monocytes % 5.0 Eosinophils % 7.1 H Basophils % 0.4 Absolute Neutrophils 4.6 Absolute Lymphocytes 1.1 Absolute Monocytes 0.3 Absolute Eosinophils 0.5 Absolute Basophils 0.0 Sodium 163.3 H Potassium 4.5 Chloride 126 H Carbon Dioxide 28 Anion Gap 9 BUN 54 H D Creatinine 0.98 Est GFR ( Amer) > 60 Est GFR (Non-Af Amer) > 60 Glucose 125 H Calcium 9.2 Impressions: KUB X-Ray 04/28/17 00:00 IMPRESSION: Constipation/impaction. Assessment & Plan - Diagnosis (1) Hypernatremia Is this a current diagnosis for this admission?: Yes (2) ARF (acute renal failure) Qualifiers: Acute renal failure type: unspecified Qualified Code(s): N17.9 - Acute kidney failure, unspecified Is this a current diagnosis for this admission?: Yes (3) Hematuria Qualifiers: Hematuria type: unspecified type Qualified Code(s): R31.9 - Hematuria, unspecified Is this a current diagnosis for this admission?: Yes (4) Anemia Qualifiers: Anemia type: unspecified type Qualified Code(s): D64.9 - Anemia, unspecified Is this a current diagnosis for this admission?: Yes (5) CVA (cerebral vascular accident) Qualifiers: CVA mechanism: unspecified Qualified Code(s): I63.9 - Cerebral infarction, unspecified Is this a current diagnosis for this admission?: Yes (6) Chronic systolic (congestive) heart failure Is this a current diagnosis for this admission?: Yes (7) Diabetes Qualifiers: Diabetes mellitus type: type 2 Diabetes mellitus complication status: with circulatory complication Diabetes mellitus complication detail: with other circulatory complications Diabetes mellitus fdc insulin use: without fdc use Qualified Code(s): E11.59 - Type 2 diabetes mellitus with other circulatory complications Is this a current diagnosis for this admission?: Yes (8) Dyslipidemia Is this a current diagnosis for this admission?: Yes (9) Dysphagia, late effect of cerebrovascular disease Is this a current diagnosis for this admission?: Yes (10) Peripheral vascular disease Is this a current diagnosis for this admission?: Yes (11) CAD (coronary artery disease) Qualifiers: Coronary Disease-Associated Artery/Lesion type: [place] artery [place] vs. transplanted heart: [place] heart Associated angina: without angina Qualified Code(s): I25.10 - Atherosclerotic heart disease of [place] coronary artery without angina pectoris Is this a current diagnosis for this admission?: Yes (12) HTN (hypertension) Qualifiers: Hypertension type: essential hypertension Qualified Code(s): I10 - Essential (primary) hypertension Is this a current diagnosis for this admission?: Yes (13) History of left below knee amputation Is this a current diagnosis for this admission?: Yes - Time Time Spent with patient: 25-34 minutes - Plan Summary Plan Summary: We will give enema for the constipation impaction findings. In the meantime we will try to irrigate the [place] catheter with saline and see if the urine will clear. Continue antibiotics and follow urine culture. We are going to change his intravenous fluids to D5W and recheck sodium in the morning. Discontinue half normal saline with dextrose. Continue supportive care.
[2017-04-29] MEDS: DOXAZOSIN MESYLATE 2 MG TABLET PEG SCH (10:36)
[2017-04-29] MEDS: ASPIRIN 81 MG TABLET, CHEWABLE PEG SCH (10:36)
[2017-04-29] MEDS: FOLIC ACID 1 MG TABLET PEG SCH (10:36)
[2017-04-29] MEDS: POLYETHYLENE GLYCOL 3350 POWDER 17 GM/1 PACKET PEG SCH (10:36)
[2017-04-29] MEDS: FERROUS SULFATE LIQUID 300 MG/5 ML UDC PEG SCH ×2 (10:37→17:14)
[2017-04-29] MEDS: INSULIN LISPRO 100 UNIT/ML 3 ML VIAL SUBCUT PRN ×2 (13:47→18:08)
[2017-04-29] MEDS: CEFTRIAXONE 1 GM/D5W RTU 1 GM/50 ML RTUPB IV SCH (21:12)
[2017-04-29] MEDS: LATANOPROST 0.005% OPH SOLN 2.5 ML OP SCH (21:12)
[2017-04-30] MEDS: INSULIN LISPRO 100 UNIT/ML 3 ML VIAL SUBCUT PRN (00:33)
[2017-04-30 05:43] LABS: ANION GAP 10 (5-19); BLOOD UREA NITROGEN 44 mg/dL (7-20); CALCIUM 8.8 mg/dL (8.4-10.2); CARBON DIOXIDE 24 mmol/L (22-30); CHLORIDE 121 mmol/L (98-107); CREATININE RESULT 0.87 mg/dL (0.52-1.25); GLUCOSE 204 mg/dL (75-110); POTASSIUM 4.6 mmol/L (3.6-5.0); SODIUM 155.3 mmol/L (137-145)
[2017-04-30] MEDS: HEPARIN SOD (PORCINE) 5,000 UNIT/ML 1 ML SYRINGE SUBCUT SCH ×3 (05:59→22:37)
[2017-04-30] MEDS: LANSOPRAZOLE 30 MG TAB.RAP.DR PO SCH ×2 (06:05→17:26)
[2017-04-30] MEDS: DEXTROSE 5%-WATER 1000 ML 1,000 ML IV PRN (06:05)
[2017-04-30] MEDS: POLYETHYLENE GLYCOL 3350 POWDER 17 GM/1 PACKET PEG SCH (10:22)
[2017-04-30] MEDS: DOXAZOSIN MESYLATE 2 MG TABLET PEG SCH (10:22)
[2017-04-30] MEDS: FERROUS SULFATE LIQUID 300 MG/5 ML UDC PEG SCH ×2 (10:23→17:25)
[2017-04-30] MEDS: FOLIC ACID 1 MG TABLET PEG SCH (10:23)
[2017-04-30] MEDS: CARVEDILOL 6.25 MG TABLET PEG SCH ×2 (10:23→23:34)
[2017-04-30] MEDS: ASPIRIN 81 MG TABLET, CHEWABLE PEG SCH (10:23)
[2017-04-30] MEDS ORDERED: MAGNESIUM HYDROXIDE SUSP 30 ML UDCUP PEG PRN (13:30)
--- NOTE | 2017-04-30 15:51 | PDOC PROGRESS REPORT ---
Subjective Progress Note for:: 04/30/17 Subjective:: No reported temperature spikes nausea vomiting or diarrhea. Patient somehow uncooperative today. His IV site was out. No reported aggressive behavior however. Physical Exam Vital Signs: Temp Pulse Resp BP Pulse Ox 98.1 F 78 17 134/48 H 100 04/30/17 12:19 04/30/17 12:19 04/30/17 12:19 04/30/17 12:19 04/30/17 12:19 Intake & Output 04/29/17 04/30/17 05/01/17 06:59 06:59 06:59 Intake Total 2815 6609 Output Total 3380 2990 925 Balance -565 3619 -925 Weight 64 kg 64 kg General appearance: PRESENT: no acute distress Head exam: PRESENT: normocephalic Eye exam: PRESENT: EOMI Mouth exam: PRESENT: moist, neck supple Neck exam: ABSENT: JVD Respiratory exam: PRESENT: clear to auscultation joaquin. ABSENT: rhonchi, wheezes Cardiovascular exam: PRESENT: RRR. ABSENT: gallop GI/Abdominal exam: PRESENT: soft. ABSENT: distended Extremities exam: ABSENT: pedal edema Neurological exam: PRESENT: alert, awake Skin exam: PRESENT: dry, warm. ABSENT: cyanosis Results Laboratory Results: 04/29/17 05:02 04/30/17 04:45 04/29/17 04/30/17 21:00 04:45 Sodium 155.3 H Potassium 4.6 Chloride 121 H Carbon Dioxide 24 Anion Gap 10 BUN 44 H Creatinine 0.87 Est GFR ( Amer) > 60 Est GFR (Non-Af Amer) > 60 Glucose 204 H Calcium 8.8 Stool Occult Blood POSITIVE Impressions: KUB X-Ray 04/28/17 00:00 IMPRESSION: Constipation/impaction. Assessment & Plan - Diagnosis (1) Hypernatremia Is this a current diagnosis for this admission?: Yes (2) ARF (acute renal failure) Qualifiers: Acute renal failure type: unspecified Qualified Code(s): N17.9 - Acute kidney failure, unspecified Is this a current diagnosis for this admission?: Yes (3) Hematuria Qualifiers: Hematuria type: unspecified type Qualified Code(s): R31.9 - Hematuria, unspecified Is this a current diagnosis for this admission?: Yes (4) Anemia Qualifiers: Anemia type: unspecified type Qualified Code(s): D64.9 - Anemia, unspecified Is this a current diagnosis for this admission?: Yes (5) CVA (cerebral vascular accident) Qualifiers: CVA mechanism: unspecified Qualified Code(s): I63.9 - Cerebral infarction, unspecified Is this a current diagnosis for this admission?: Yes (6) Chronic systolic (congestive) heart failure Is this a current diagnosis for this admission?: Yes (7) Diabetes Qualifiers: Diabetes mellitus type: type 2 Diabetes mellitus complication status: with circulatory complication Diabetes mellitus complication detail: with other circulatory complications Diabetes mellitus terminal operator insulin use: without jail use Qualified Code(s): E11.59 - Type 2 diabetes mellitus with other circulatory complications Is this a current diagnosis for this admission?: Yes (8) Dyslipidemia Is this a current diagnosis for this admission?: Yes (9) Dysphagia, late effect of cerebrovascular disease Is this a current diagnosis for this admission?: Yes (10) Peripheral vascular disease Is this a current diagnosis for this admission?: Yes (11) CAD (coronary artery disease) Qualifiers: Coronary Disease-Associated Artery/Lesion type: [place] artery [place] vs. transplanted heart: [place] heart Associated angina: without angina Qualified Code(s): I25.10 - Atherosclerotic heart disease of [place] coronary artery without angina pectoris Is this a current diagnosis for this admission?: Yes (12) HTN (hypertension) Qualifiers: Hypertension type: essential hypertension Qualified Code(s): I10 - Essential (primary) hypertension Is this a current diagnosis for this admission?: Yes (13) History of left below knee amputation Is this a current diagnosis for this admission?: Yes - Time Time Spent with patient: 25-34 minutes - Plan Summary Plan Summary: We will obtain a PICC line. Discontinue ceftriaxone and place the patient on cefepime. We will try continuous bladder irrigation see if it will help. Continue supportive care.
[2017-04-30] MEDS ORDERED: CEFEPIME 1 GM/D5W RTU 1 GM/50 ML RTUPB IV ONE (17:00)
[2017-04-30] MEDS: LATANOPROST 0.005% OPH SOLN 2.5 ML OP SCH (23:34)
[2017-05-01] MEDS: HEPARIN SOD (PORCINE) 5,000 UNIT/ML 1 ML SYRINGE SUBCUT SCH ×3 (05:00→21:58)
[2017-05-01] MEDS: LANSOPRAZOLE 30 MG TAB.RAP.DR PO SCH ×2 (05:19→17:42)
[2017-05-01 07:08] LABS: ANION GAP 10 (5-19); BLOOD UREA NITROGEN 42 mg/dL (7-20); CALCIUM 8.8 mg/dL (8.4-10.2); CARBON DIOXIDE 22 mmol/L (22-30); CHLORIDE 121 mmol/L (98-107); CREATININE RESULT 0.87 mg/dL (0.52-1.25); GLUCOSE 202 mg/dL (75-110); POTASSIUM 4.3 mmol/L (3.6-5.0); SODIUM 152.8 mmol/L (137-145)
[2017-05-01] MEDS: CARVEDILOL 6.25 MG TABLET PEG SCH ×2 (10:30→21:56)
[2017-05-01] MEDS: FOLIC ACID 1 MG TABLET PEG SCH (10:31)
[2017-05-01] MEDS: DOXAZOSIN MESYLATE 2 MG TABLET PEG SCH (10:31)
[2017-05-01] MEDS: FERROUS SULFATE LIQUID 300 MG/5 ML UDC PEG SCH ×2 (10:32→17:43)
[2017-05-01] MEDS: ASPIRIN 81 MG TABLET, CHEWABLE PEG SCH (10:32)
[2017-05-01] MEDS: POLYETHYLENE GLYCOL 3350 POWDER 17 GM/1 PACKET PEG SCH (10:33)
--- NOTE | 2017-05-01 12:18 | RADIOLOGY REPORT (SQ) ---
EXAM DESCRIPTION: PICC INSERTION COMPLETED DATE/TIME: 05/01/2017 12:06 pm REASON FOR STUDY: Prolonged IV antibiotic for complicated UTI COMPARISON: None. FLUOROSCOPY TIME: 1.05 minutes 1 images saved to PACS. TECHNIQUE: Fluoroscopic and ultrasound guided PICC placement. LIMITATIONS: None. PROCEDURE: After written consent and assessment were obtained, the patient was brought into the fluo roscopy room and place supine on the table. Ultrasound was used on the patient's right arm for PICC access. The right arm was prepped and draped in a sterile fashion along with the ultrasound probe. Th e entry site was anesthetized with 1% lidocaine. A 21 gauge 7 cm needle was advanced through the skin and into the cephalic vein under live ultrasound guidance. An ultrasound image was saved to PACS co irming access site. A .018 guide wire was then inserted through the needle and into the venous sys tem. The needle was the removed and an 11 blade scalpel was used to make a 1cm skin incision. A 5 fr peel-away sheath was advanced over the wire and into the venous system. A measurement was then made using the existing wire and live fluoroscopic guidance. The wire was then removed and the trimmed. Th e PICC was advanced through the peel-away sheath and into the venous system. The peel-away sheath was removed and the catheter was adhered to the patients arm with a stat lock. The catheter was then asp irated and flushed and a sterile bandage was placed over the access site. A fluoroscopic spot image was saved to PACS confirming the catheter tip within the superior vena cava. IMPRESSION: SUCCESSFUL PLACEMENT OF A 5 FR pool LUMEN 34 CM PICC IN THE cephalic VEIN. COMMENT: Patient medication list reviewed: Yes. Quality ID [id number]: Final reports for procedures using fluoroscopy that document radiation exposure [place], or exposure time and number of fluorographic images (if radiation exposure indices are not avail able) Quality ID #[id number]: The patient was prepped and draped using maximum sterile barrier technique including cap, mask, sterile gown, sterile gloves, a large sterile sheet, hand hygiene, and 2% Chlorhexidine fo r cutaneous antisepsis. When ultrasound is used, sterile ultrasound techniques are followed requiring sterile gel and sterile probes. TECHNICAL DOCUMENTATION: JOB ID: [id number]- All Rights Reserved
--- NOTE | 2017-05-01 12:18 | RADIOLOGY REPORT (SQ) ---
EXAM DESCRIPTION: FLUORO/CV PLACEMENT COMPLETE DATE/TIME: 05/01/2017 12:06 pm REASON FOR STUDY: IV ABX FINDINGS: Please see combined report for performance of procedure and radiologic supervision and int erpretation. IMPRESSION: Please see combined report for performance of procedure and radiologic supervision and i nterpretation.
--- NOTE | 2017-05-01 12:19 | RADIOLOGY REPORT (SQ) ---
EXAM DESCRIPTION: U/S GUIDE FOR VASCULAR ACCESS COMPLETE DATE/TIME: 05/01/2017 12:07 pm REASON FOR STUDY: IV ABX FINDINGS: Please see combined report for performance of procedure and radiologic supervision and int erpretation. IMPRESSION: Please see combined report for performance of procedure and radiologic supervision and i nterpretation.
[2017-05-01] MEDS: CEFEPIME 1 GM/D5W RTU 1 GM/50 ML RTUPB IV SCH ×2 (12:42→21:56)
--- NOTE | 2017-05-01 12:46 | PDOC PROGRESS REPORT ---
Subjective Progress Note for:: 05/01/17 Subjective:: Patient is urine is getting clear. No reported temperature spikes, nausea or vomiting, chills or fever. No reported diarrhea. Physical Exam Vital Signs: Temp Pulse Resp BP Pulse Ox 97.8 F 66 26 H 112/57 L 96 05/01/17 09:41 05/01/17 09:41 05/01/17 09:41 05/01/17 09:41 05/01/17 09:41 Intake & Output 04/30/17 05/01/17 05/02/17 06:59 06:59 06:59 Intake Total 6609 5556 Output Total 2990 1565 Balance 3619 3991 Weight 64 kg 64 kg General appearance: PRESENT: no acute distress, cooperative Head exam: PRESENT: normocephalic Eye exam: PRESENT: EOMI Mouth exam: PRESENT: moist, neck supple Neck exam: ABSENT: JVD Respiratory exam: PRESENT: clear to auscultation joaquin Cardiovascular exam: PRESENT: RRR. ABSENT: gallop GI/Abdominal exam: PRESENT: soft. ABSENT: distended Extremities exam: PRESENT: other - BKA in the left. ABSENT: pedal edema - Right Psychiatric exam: ABSENT: agitated Focused psych exam: ABSENT: restlessness Skin exam: ABSENT: cyanosis Results Laboratory Results: 04/29/17 05:02 05/01/17 05:34 05/01/17 05:34 Sodium 152.8 H Potassium 4.3 Chloride 121 H Carbon Dioxide 22 Anion Gap 10 BUN 42 H Creatinine 0.87 Est GFR ( Amer) > 60 Est GFR (Non-Af Amer) > 60 Glucose 202 H Calcium 8.8 Impressions: KUB X-Ray 04/28/17 00:00 IMPRESSION: Constipation/impaction. Guidance Fluoroscopy 05/01/17 00:00 IMPRESSION: Please see combined report for performance of procedure and radiologic supervision and interpretation. Interventional Vascular Procedure 05/01/17 00:00 IMPRESSION: Please see combined report for performance of procedure and radiologic supervision and interpretation. PICC Line Insertion 05/01/17 00:00 IMPRESSION: SUCCESSFUL PLACEMENT OF A 5 FR pool LUMEN 34 CM PICC IN THE cephalic VEIN. Assessment & Plan - Diagnosis (1) Hypernatremia Is this a current diagnosis for this admission?: Yes (2) ARF (acute renal failure) Qualifiers: Acute renal failure type: unspecified Qualified Code(s): N17.9 - Acute kidney failure, unspecified Is this a current diagnosis for this admission?: Yes (3) Hematuria Qualifiers: Hematuria type: unspecified type Qualified Code(s): R31.9 - Hematuria, unspecified Is this a current diagnosis for this admission?: Yes (4) Anemia Qualifiers: Anemia type: unspecified type Qualified Code(s): D64.9 - Anemia, unspecified Is this a current diagnosis for this admission?: Yes (5) CVA (cerebral vascular accident) Qualifiers: CVA mechanism: unspecified Qualified Code(s): I63.9 - Cerebral infarction, unspecified Is this a current diagnosis for this admission?: Yes (6) Chronic systolic (congestive) heart failure Is this a current diagnosis for this admission?: Yes (7) Diabetes Qualifiers: Diabetes mellitus type: type 2 Diabetes mellitus complication status: with circulatory complication Diabetes mellitus complication detail: with other circulatory complications Diabetes mellitus intermediate project manager insulin use: without intermediate project manager use Qualified Code(s): E11.59 - Type 2 diabetes mellitus with other circulatory complications Is this a current diagnosis for this admission?: Yes (8) Dyslipidemia Is this a current diagnosis for this admission?: Yes (9) Dysphagia, late effect of cerebrovascular disease Is this a current diagnosis for this admission?: Yes (10) Peripheral vascular disease Is this a current diagnosis for this admission?: Yes (11) CAD (coronary artery disease) Qualifiers: Coronary Disease-Associated Artery/Lesion type: [place] artery [place] vs. transplanted heart: [place] heart Associated angina: without angina Qualified Code(s): I25.10 - Atherosclerotic heart disease of [place] coronary artery without angina pectoris Is this a current diagnosis for this admission?: Yes (12) HTN (hypertension) Qualifiers: Hypertension type: essential hypertension Qualified Code(s): I10 - Essential (primary) hypertension Is this a current diagnosis for this admission?: Yes (13) History of left below knee amputation Is this a current diagnosis for this admission?: Yes - Time Time Spent with patient: 15-24 minutes - PICC line placement today. Antibiotic for a total of 2 weeks for complicated UTI. Continue other medications and supportive care. We will try to irrigate the bladder with 1 more liter of saline.
[2017-05-01] MEDS ORDERED: NORMAL SALINE 10 ML SDV (AFTER EACH USE) IV PRN (13:21)
[2017-05-01] MEDS: INSULIN LISPRO 100 UNIT/ML 3 ML VIAL SUBCUT PRN ×2 (17:43→23:55)
[2017-05-01] MEDS: NORMAL SALINE 10 ML SDV (SCHEDULED) IV SCH (21:56)
[2017-05-01] MEDS: LATANOPROST 0.005% OPH SOLN 2.5 ML OP SCH (21:58)
[2017-05-02] MEDS: HEPARIN SOD (PORCINE) 5,000 UNIT/ML 1 ML SYRINGE SUBCUT SCH ×3 (05:46→22:11)
[2017-05-02] MEDS: LANSOPRAZOLE 30 MG TAB.RAP.DR PO SCH ×2 (05:46→17:49)
[2017-05-02 07:27] LABS: ANION GAP 5 (5-19); BLOOD UREA NITROGEN 35 mg/dL (7-20); CALCIUM 8.3 mg/dL (8.4-10.2); CARBON DIOXIDE 27 mmol/L (22-30); CHLORIDE 114 mmol/L (98-107); CREATININE RESULT 0.84 mg/dL (0.52-1.25); GLUCOSE 194 mg/dL (75-110); POTASSIUM 4.1 mmol/L (3.6-5.0); SODIUM 146.3 mmol/L (137-145)
--- NOTE | 2017-05-02 09:21 | PDOC PROGRESS REPORT ---
Subjective Progress Note for:: 05/02/17 Subjective:: Urine is much better. No more hematuria. No reported temperature spikes nor diarrhea no respiratory distress. No nausea or vomiting. Physical Exam Vital Signs: Temp Pulse Resp BP Pulse Ox 97.8 F 67 16 110/68 95 05/02/17 07:38 05/02/17 07:38 05/02/17 07:38 05/02/17 07:38 05/02/17 07:38 Intake & Output 05/01/17 05/02/17 05/03/17 06:59 06:59 06:59 Intake Total 5556 6911 Output Total 1565 3500 Balance 3991 3411 Weight 64 kg 64 kg General appearance: PRESENT: no acute distress, cooperative Head exam: PRESENT: normocephalic Mouth exam: PRESENT: moist, neck supple Neck exam: ABSENT: JVD Respiratory exam: PRESENT: clear to auscultation joaquin Cardiovascular exam: PRESENT: RRR GI/Abdominal exam: PRESENT: normal bowel sounds, soft. ABSENT: distended Extremities exam: PRESENT: other - BKA on the left. ABSENT: pedal edema Neurological exam: PRESENT: alert, awake Results Laboratory Results: 04/29/17 05:02 05/02/17 07:00 05/02/17 07:00 Sodium 146.3 H Potassium 4.1 Chloride 114 H Carbon Dioxide 27 Anion Gap 5 BUN 35 H Creatinine 0.84 Est GFR ( Amer) > 60 Est GFR (Non-Af Amer) > 60 Glucose 194 H Calcium 8.3 L 04/28/17 11:55 Catheterized Urine Urine Culture - Final Pseudomonas Aeruginosa Enterococcus Faecalis(Group D) Impressions: KUB X-Ray 04/28/17 00:00 IMPRESSION: Constipation/impaction. Guidance Fluoroscopy 05/01/17 00:00 IMPRESSION: Please see combined report for performance of procedure and radiologic supervision and interpretation. Interventional Vascular Procedure 05/01/17 00:00 IMPRESSION: Please see combined report for performance of procedure and radiologic supervision and interpretation. PICC Line Insertion 05/01/17 00:00 IMPRESSION: SUCCESSFUL PLACEMENT OF A 5 FR pool LUMEN 34 CM PICC IN THE cephalic VEIN. Assessment & Plan - Diagnosis (1) Hypernatremia Is this a current diagnosis for this admission?: Yes (2) ARF (acute renal failure) Qualifiers: Acute renal failure type: unspecified Qualified Code(s): N17.9 - Acute kidney failure, unspecified Is this a current diagnosis for this admission?: Yes (3) Hematuria Qualifiers: Hematuria type: unspecified type Qualified Code(s): R31.9 - Hematuria, unspecified Is this a current diagnosis for this admission?: Yes (4) Anemia Qualifiers: Anemia type: unspecified type Qualified Code(s): D64.9 - Anemia, unspecified Is this a current diagnosis for this admission?: Yes (5) CVA (cerebral vascular accident) Qualifiers: CVA mechanism: unspecified Qualified Code(s): I63.9 - Cerebral infarction, unspecified Is this a current diagnosis for this admission?: Yes (6) Chronic systolic (congestive) heart failure Is this a current diagnosis for this admission?: Yes (7) Diabetes Qualifiers: Diabetes mellitus type: type 2 Diabetes mellitus complication status: with circulatory complication Diabetes mellitus complication detail: with other circulatory complications Diabetes mellitus equipment operator [employer]modal [place] insulin use: without equipment operator [employer]modal yard use Qualified Code(s): E11.59 - Type 2 diabetes mellitus with other circulatory complications Is this a current diagnosis for this admission?: Yes (8) Dyslipidemia Is this a current diagnosis for this admission?: Yes (9) Dysphagia, late effect of cerebrovascular disease Is this a current diagnosis for this admission?: Yes (10) Peripheral vascular disease Is this a current diagnosis for this admission?: Yes (11) CAD (coronary artery disease) Qualifiers: Coronary Disease-Associated Artery/Lesion type: [place] artery [place] vs. transplanted heart: [place] heart Associated angina: without angina Qualified Code(s): I25.10 - Atherosclerotic heart disease of [place] coronary artery without angina pectoris Is this a current diagnosis for this admission?: Yes (12) HTN (hypertension) Qualifiers: Hypertension type: essential hypertension Qualified Code(s): I10 - Essential (primary) hypertension Is this a current diagnosis for this admission?: Yes (13) History of left below knee amputation Is this a current diagnosis for this admission?: Yes - Time Time Spent with patient: Less than 15 minutes - Plan Summary Plan Summary: Recheck sodium in the morning. We will transfer the patient to [facility] in the morning. Continue current antibiotics. Patient has been colonized with enterococcus and likely the pathogen. We will treat Pseudomonas which is the new one.
[2017-05-02] MEDS: FOLIC ACID 1 MG TABLET PEG SCH (10:19)
[2017-05-02] MEDS: CEFEPIME 1 GM/D5W RTU 1 GM/50 ML RTUPB IV SCH ×2 (10:19→21:58)
[2017-05-02] MEDS: CARVEDILOL 6.25 MG TABLET PEG SCH ×2 (10:20→21:58)
[2017-05-02] MEDS: ASPIRIN 81 MG TABLET, CHEWABLE PEG SCH (10:21)
[2017-05-02] MEDS: DOXAZOSIN MESYLATE 2 MG TABLET PEG SCH (10:21)
[2017-05-02] MEDS: NORMAL SALINE 10 ML SDV (SCHEDULED) IV SCH ×2 (10:21→21:59)
[2017-05-02] MEDS: FERROUS SULFATE LIQUID 300 MG/5 ML UDC PEG SCH ×2 (10:22→17:49)
[2017-05-02] MEDS: POLYETHYLENE GLYCOL 3350 POWDER 17 GM/1 PACKET PEG SCH (10:22)
[2017-05-02] MEDS: INSULIN LISPRO 100 UNIT/ML 3 ML VIAL SUBCUT PRN (14:55)
[2017-05-02] MEDS: LATANOPROST 0.005% OPH SOLN 2.5 ML OP SCH (22:00)
[2017-05-02] MEDS: DEXTROSE 5%-WATER 1000 ML 1,000 ML IV PRN (23:16)
[2017-05-03] MEDS: INSULIN LISPRO 100 UNIT/ML 3 ML VIAL SUBCUT PRN ×3 (01:32→12:18)
[2017-05-03] MEDS: LANSOPRAZOLE 30 MG TAB.RAP.DR PO SCH ×2 (06:09→17:28)
[2017-05-03] MEDS: HEPARIN SOD (PORCINE) 5,000 UNIT/ML 1 ML SYRINGE SUBCUT SCH ×2 (06:30→14:35)
--- NOTE | 2017-05-03 09:49 | PDOC DISCHARGE SUMMARY ---
General - Admit/Disc Date/PCP Admission Date/Primary Care Provider: 04/26/17 00:49 CHAD HILLIARD Discharge Date: 05/03/17 - Discharge Diagnosis (1) Hypernatremia Is this a current diagnosis for this admission?: Yes (2) ARF (acute renal failure) Is this a current diagnosis for this admission?: Yes (3) Hematuria Is this a current diagnosis for this admission?: Yes (4) Anemia Is this a current diagnosis for this admission?: Yes (5) CVA (cerebral vascular accident) Is this a current diagnosis for this admission?: Yes (6) Chronic systolic (congestive) heart failure Is this a current diagnosis for this admission?: Yes (7) Diabetes Is this a current diagnosis for this admission?: Yes (8) Dyslipidemia Is this a current diagnosis for this admission?: Yes (9) Dysphagia, late effect of cerebrovascular disease Is this a current diagnosis for this admission?: Yes (10) Peripheral vascular disease Is this a current diagnosis for this admission?: Yes (11) CAD (coronary artery disease) Is this a current diagnosis for this admission?: Yes (12) HTN (hypertension) Is this a current diagnosis for this admission?: Yes (13) History of left below knee amputation Is this a current diagnosis for this admission?: Yes - Additional Information Resuscitation Status: Do Not Resuscitate Discharge Diet: Tube Feeding (Comments) - Glucerna 1.2 at 80ml/hr. Flush tube with 300 ml water q4h. Discharge Activity: Activity As Tolerated, Balance Activity w/Rest Home Medications: Acetaminophen [Tylenol 325 mg Tablet] 650 mg PEG Q6HP PRN 04/26/17 Ascorbic Acid [Vitamin C 500 mg Tablet] 500 mg PEG TID 04/26/17 Aspirin [Aspirin 81 mg Chewable Tablet] 81 mg PEG DAILY 04/26/17 Atorvastatin Calcium [Lipitor 10 mg Tablet] 10 mg PEG QHS 04/26/17 Carvedilol [Coreg 25 mg Tablet] 25 mg PEG Q12 04/26/17 Clopidogrel Bisulfate [Plavix 75 mg Tablet] 75 mg PEG DAILY 04/26/17 Doxazosin Mesylate [Cardura 2 mg Tablet] 2 mg PEG QHS 04/26/17 Ferrous Sulfate [Ferrous Sulfate Liquid 300 mg/5 ml Udcup] 5 ml PEG BID Finasteride [Proscar 5 mg Tablet] 5 mg PEG DAILY 04/26/17 Folic Acid [Folvite 1 mg Tablet] 1 mg PEG DAILY 04/26/17 Insulin Lispro [Humalog Insulin (Lispro) 100 unit/mL] See Protocol SQ QID Latanoprost [Xalatan 0.005% Oph Soln 2.5 ml] 1 drop OD QHS 04/26/17 Losartan Potassium [Cozaar 50 mg Tablet] 50 mg PEG Q12 04/26/17 Multivit-Minerals/Ferrous Gluc [Certa Benigno Liquid] 15 ml PEG DAILY 04/26/17 Polyethylene Glycol 3350 [Miralax Powder 17 gm/Packet] 1 packet PEG DAILY Sennosides/Docusate 8.6-50 mg [Senna Plus Tablet] 1 tab PEG BIDP PRN 04/26/17 Cefepime 1 gm/D5w RTU [Maxipime RTU 1 gm/D5w 50 ml Premix Bag] 1 gm IV Q12 #20 rtupb 05/03/17 Lansoprazole [Prevacid 30 mg Odt Tablet] 30 mg PO BID@0600,1700 tab. Additional Information: PICC line care per facility protocol Remove PICC line once antibiotics completed. IV cefepime for a total of 12 days. CBC/BMP in 1 week and relay result to primary MD. Meng dressing to toe ulcer PRN History of Present Illness Patient complains of: Hypotension History of Present Illness: SEUN TOTH is a 76 year old male who is a [facility]term [facility] with a past medical history of advanced dementia, CVA with upper extremity contracture, dysphasia requiring PEG tube, aphasia, diabetes, left BKA , peripheral vascular disease, chronic Catalan with hematuria and recurrent renal failure with hypernatremia. He is noted by the [facility] staff to have low- volume hematuria and referred to the hospitalist for admission. In the emergency room is an extremely poor historian but labs reveal acute on chronic renal failure severe hypernatremia and gross hematuria with clots following replacement of Catalan catheter resulting in 2-1/2 L of diuresis. Patient is essentially nonverbal but able to state his name and denied pain. For details please refer to history and physical examination performed by the admitting physician. Hospital Course Hospital Course: The patient was admitted to telemetry. The patient was IV hydrated with saline and serum sodium was monitored and hypernatremia persisted and IV fluids shifted to hypotonic's solution. Eventually the patient's serum sodium trended down. Patient has an indwelling Catalan catheter is noted hematuria reportedly from trauma. This was irrigated and eventually cleared. Hemoglobin hematocrit was monitored, trended down and eventually noted to have stabilized. The patient had significant constipation and therefore requiring laxatives and enema with good result. Stool for occult blood initially was positive but hemoglobin hematocrit was stable. This can be monitored on an outpatient basis. The patient's blood pressure eventually improved and he was resumed back on his Coreg. His urine culture grew Pseudomonas which is a new organism and therefore the patient was started on antipseudomonal antibiotic. Interventional radiology was contacted and place a PICC line for prolonged IV antibiotic for complicated UTI. There was enterococcus noted as well but colonies were not significant patient had multiple enterococcus in the urine cultures likely colonization. The patient's hematuria reportedly traumatic when Catalan was reinserted and changed. The patient improved. manufacturing planner was consulted for patient to return [facility] to [facility] for prolonged IV antibiotic and continued care. The rest of the hospital stays unremarkable. Physical Exam Vital Signs: Temp Pulse Resp BP Pulse Ox 98.0 F 82 17 104/49 L 96 05/03/17 08:00 05/03/17 08:00 05/03/17 08:00 05/03/17 08:00 05/03/17 08:00 Intake & Output 05/02/17 05/03/17 05/04/17 06:59 06:59 06:59 Intake Total 6911 5850 1325 Output Total 3500 2100 Balance 3411 3750 1325 Weight 64 kg 64 kg General appearance: PRESENT: no acute distress Head exam: PRESENT: normocephalic Eye exam: PRESENT: EOMI Mouth exam: PRESENT: moist, neck supple Neck exam: ABSENT: JVD Respiratory exam: PRESENT: clear to auscultation joaquin. ABSENT: rhonchi, wheezes Cardiovascular exam: PRESENT: RRR. ABSENT: gallop GI/Abdominal exam: PRESENT: hypoactive bowel sounds, soft. ABSENT: distended Gentrourinary exam: PRESENT: indwelling catheter Extremities exam: PRESENT: other - Toe ulcer on the right with no purulent drainage. BKA on the left. Neurological exam: PRESENT: alert, awake Psychiatric exam: ABSENT: agitated Focused psych exam: ABSENT: restlessness Skin exam: PRESENT: dry, warm. ABSENT: cyanosis Results Laboratory Results: 04/29/17 05:02 05/02/17 07:00 Impressions: KUB X-Ray 04/28/17 00:00 IMPRESSION: Constipation/impaction. Guidance Fluoroscopy 05/01/17 00:00 IMPRESSION: Please see combined report for performance of procedure and radiologic supervision and interpretation. Interventional Vascular Procedure 05/01/17 00:00 IMPRESSION: Please see combined report for performance of procedure and radiologic supervision and interpretation. PICC Line Insertion 05/01/17 00:00 IMPRESSION: SUCCESSFUL PLACEMENT OF A 5 FR pool LUMEN 34 CM PICC IN THE cephalic VEIN. Qualifiers PATEINT BEING DISCHARGED WITH ANY OF THE FOLLOWING DIAGNOSIS?: No Plan Discharge Plan: Follow-up with primary care physician in 1 week Time Spent: Less than 30 Minutes
[2017-05-03] MEDS: ASPIRIN 81 MG TABLET, CHEWABLE PEG SCH (10:42)
[2017-05-03] MEDS: DOXAZOSIN MESYLATE 2 MG TABLET PEG SCH (10:42)
[2017-05-03] MEDS: CARVEDILOL 6.25 MG TABLET PEG SCH (10:44)
[2017-05-03] MEDS: FOLIC ACID 1 MG TABLET PEG SCH (10:44)
[2017-05-03] MEDS: FERROUS SULFATE LIQUID 300 MG/5 ML UDC PEG SCH ×2 (10:45→17:28)
[2017-05-03] MEDS: NORMAL SALINE 10 ML SDV (SCHEDULED) IV SCH (10:45)
[2017-05-03] MEDS: POLYETHYLENE GLYCOL 3350 POWDER 17 GM/1 PACKET PEG SCH (10:45)
[2017-05-03] MEDS: CEFEPIME 1 GM/D5W RTU 1 GM/50 ML RTUPB IV SCH (10:46)
[2017-05-03 16:12] VITALS: BP 103/54
== END 2017-05-03 18:30 | DRG 683 ==
LOC: ER 22:12 → UNDOADMIN 04-26 00:35 → EH 04-26 00:35 → 4S 04-26 03:15
PROVIDERS: ADMIT Internal Medicine; ATTEND Internal Medicine
PROC: 3E0F73Z Introduction of Anti-inflammatory into Respiratory Tract, Via Natural or Artificial Opening (ICD-10-PCS; 2017-04-26)
PROC: 02HV33Z Insertion of Infusion Device into Superior Vena Cava, Percutaneous Approach (ICD-10-PCS; principal; 2017-05-01)
PROC: B548ZZA Ultrasonography of Superior Vena Cava, Guidance (ICD-10-PCS; 2017-05-01)
PROC: B518ZZA Fluoroscopy of Superior Vena Cava, Guidance (ICD-10-PCS; 2017-05-01)
DX: N17.9 Acute kidney failure, unspecified (principal); N39.0 Urinary tract infection, site not specified; E87.0 Hyperosmolality and hypernatremia; I13.0 Hypertensive heart and chronic kidney disease with heart failure and stage 1 through stage 4 chronic kidney disease, or unspecified chronic kidney disease; I50.22 Chronic systolic (congestive) heart failure; S37.39XA Other injury of urethra, initial encounter; N18.9 Chronic kidney disease, unspecified; E11.22 Type 2 diabetes mellitus with diabetic chronic kidney disease; D63.1 Anemia in chronic kidney disease; E78.5 Hyperlipidemia, unspecified; I69.391 Dysphagia following cerebral infarction; R13.10 Dysphagia, unspecified; I25.10 Atherosclerotic heart disease of native coronary artery without angina pectoris; Z66 Do not resuscitate; F03.90 Unspecified dementia, unspecified severity, without behavioral disturbance, psychotic disturbance, mood disturbance, and anxiety; R31.9 Hematuria, unspecified; Y84.6 Urinary catheterization as the cause of abnormal reaction of the patient, or of later complication, without mention of misadventure at the time of the procedure; K21.9 Gastro-esophageal reflux disease without esophagitis; M19.90 Unspecified osteoarthritis, unspecified site; E11.59 Type 2 diabetes mellitus with other circulatory complications; B96.5 Pseudomonas (aeruginosa) (mallei) (pseudomallei) as the cause of diseases classified elsewhere; I25.2 Old myocardial infarction; Z89.512 Acquired absence of left leg below knee; Z79.899 Other long term (current) drug therapy; Z93.1 Gastrostomy status; Z95.5 Presence of coronary angioplasty implant and graft
CPT/HCPCS: 36415; 36569; 51701; 74000; 76937; 77001; 80048; 80053; 81001; 82272; 82962; 85025; 87086; 87088; 87186; 93005; 93010; 99285; J0692; J0696; J1642; J1644; J1815; J3490; J7030; J7060; J7120

== ENCOUNTER 2017-05-22 15:34 | Inpatient (IN) | payer MEDICARE, MEDICAID ==
--- NOTE | 2017-05-22 16:01 | ER Document Report ---
ED General - General Stated Complaint: ALTERED MENTAL STATUS Time Seen by Provider: 05/22/17 15:46 Notes: This is a 76-year-old male patient brought to the emergency department for acting differently at the halfway. Not altered per se but seems uncomfortable. Patient has indwelling Catalan catheter but not a lot of urine in the bag. Known to have obstructions. No fever. Mild discomfort of the lower abdomen. TRAVEL OUTSIDE OF THE [place] IN LAST 30 DAYS: No - HPI Associated symptoms: None - Related Data Allergies/Adverse Reactions: No Known Allergies Allergy (Verified 02/22/17 11:56) Past Medical History - General Information source: [facility] Records, Outside Facility Records Cannot obtain history due to: Dementia - Social History Smoking Status: Smoker,Current Status Unk Frequency of alcohol use: None Drug Abuse: None Lives with: [facility] Family History: Reviewed & Not Pertinent, Other - Unobtainable - Past Medical History Cardiac Medical History: Reports: Hx Congestive Heart Failure, Hx Coronary Artery Disease - stent x 1, Hx Heart Attack - 2003, Hx Hypercholesterolemia, Hx Hypertension, Hx Peripheral Vascular Disease Pulmonary Medical History: Reports: Hx Asthma - as child Denies: Hx Bronchitis, Hx COPD, Hx Pneumonia, Hx Tuberculosis Neurological Medical History: Denies: Hx Seizures Endocrine Medical History: Reports: Hx Diabetes Mellitus Type 2 Renal/ Medical History: Reports: Hx Benign Prostatic Hyperplasia GI Medical History: Reports: Hx Gastroesophageal Reflux Disease. Denies: Hx Hiatal Hernia, Hx Ulcer Musculoskeltal Medical History: Reports Hx Arthritis, Reports Hx Musculoskeletal Deformity - BKA Psychiatric Medical History: Reports: Hx Dementia Denies: Hx Attention Deficit Hyperactivity Disorder, Hx Bipolar Disorder, Hx Depression, Hx Schizophrenia Past Surgical History: Reports: Hx Abdominal Surgery, Hx Cardiac Surgery - defibrillator, Hx Internal Defibrillator, Hx Orthopedic Surgery - left BKA, Hx Vascular Surgery - left groin. Denies: Hx Open Heart Surgery - Immunizations Hx Diphtheria, Pertussis, Tetanus Vaccination: No Review of Systems - Review of Systems -: Yes ROS unobtainable due to patient's medical condition Physical Exam - Vital signs Vitals: Resp 7 L 05/22/17 15:50 Interpretation: Normal - General General appearance: Appears well, Alert - HEENT Head: Normocephalic, Atraumatic Eyes: Normal Pupils: PERRL - Respiratory Respiratory status: No respiratory distress Chest status: Nontender Breath sounds: Normal Chest palpation: Normal - Cardiovascular Rhythm: Regular Heart sounds: Normal auscultation Murmur: No - Abdominal Inspection: Normal Distension: Distended, Other - Lower abdomen Bowel sounds: Normal Tenderness: Nontender Organomegaly: No organomegaly - Back Back: Normal, Nontender - Extremities General upper extremity: Normal inspection, Nontender, Normal color, Normal ROM , Normal temperature General lower extremity: Normal inspection, Nontender, Normal color, Normal ROM , Normal temperature, Normal weight bearing. No: Jeremias's sign - Neurological Neuro grossly intact: Yes Cognition: Confused Burgin Coma Scale Verbal: Confused Jonathan Coma Scale Motor: Obeys Commands Speech: Dysarthria, Expressive aphasia Sensory: Normal - Psychological Associated symptoms: Normal affect, Normal mood - Skin Skin Temperature: Warm Skin Moisture: Dry Skin Color: Normal Course - Re-evaluation Re-evalutation: 05/22/17 18:05 he with a distended bladder seen on bedside ultrasound. Will attempt to place a catheter and to drain bladder. This is likely the cause of patient's ear issues 05/22/17 19:00 With bladder outlet obstruction. New Catalan catheter was placed. Thick purulent urine obtained. We will do continuous irrigation. Patient extremely elevated sodium at 167. Likely due to the obstruction. Will start IV fluids. Patient will need to be admitted will consult with hospitalist for admission - Vital Signs Vital signs: Temp Pulse Resp BP Pulse Ox 99 F 78 17 117/89 H 100 05/22/17 15:59 05/22/17 15:59 05/22/17 18:01 05/22/17 18:00 05/22/17 18:01 - Laboratory Result Diagrams: 05/22/17 17:47 05/22/17 16:51 Laboratory results interpreted by me: 05/22/17 05/22/17 05/22/17 16:51 17:10 17:47 RBC 3.91 L Hgb 9.5 L Hct 30.3 L MCV 78 L D MCH 24.2 L MCHC 31.3 L RDW 21.6 H Sodium 169.3 H* Chloride 124 H Carbon Dioxide 33 H BUN 143 H Creatinine 2.63 H Est GFR ( Amer) 29 L Est GFR (Non-Af Amer) 24 L Glucose 143 H ALT 17 L Albumin 3.1 L Urine Protein 100 H Urine Glucose (UA) 50 H Urine Blood LARGE H Ur Leukocyte Esterase MODERATE H Urine Ascorbic Acid 40 H Procedures - Additional Procedures IV insertion Additional Procedures: IV insertion - The right AC was accessed with a #20- gauge IV under ultrasound guidance. No complications. Flushing well. Secured with commercially available securing device Discharge - Discharge Clinical Impression: Hypernatremia, Bacteriuria with pyuria, Acute renal insufficiency Disposition: ADMITTED INPATIENT Admitting Provider: Hospitalist Unit Admitted: [facility] Referrals: CHAD HILLIARD MD [Primary Care Provider] - Follow up as needed
[2017-05-22 17:32] LABS: ALANINE AMINOTRANSFERASE 17 U/L (21-72); ALBUMIN 3.1 g/dL (3.5-5.0); ALKALINE PHOSPHATASE 73 U/L (38-126); ASPARTATE AMINO TRANSFERASE 33 U/L (17-59); BILIRUBIN,DIRECT 0.4 mg/dL (0.0-0.4); BILIRUBIN,TOTAL 0.4 mg/dL (0.2-1.3); CALCIUM 9.2 mg/dL (8.4-10.2); CARBON DIOXIDE 33 mmol/L (22-30); CHLORIDE 124 mmol/L (98-107); CREATINE KINASE 56 U/L (55-170); CREATININE RESULT 2.63 mg/dL (0.52-1.25); GLUCOSE 143 mg/dL (75-110); POTASSIUM 4.8 mmol/L (3.6-5.0); TOTAL PROTEIN 7.8 g/dL (6.3-8.2)
[2017-05-22 17:33] LABS: ANION GAP 12 (5-19)
[2017-05-22 17:38] LABS: APPEARANCE,URINE TURBID; BILIRUBIN,URINE NEGATIVE (NEGATIVE); GLUCOSE, URINE 50 mg/dL (NEGATIVE); KETONES,URINE NEGATIVE (NEGATIVE); LEUKOCYTE ESTERASE,URINE MODERATE (NEGATIVE); NITRITE,URINE NEGATIVE (NEGATIVE); PROTEIN,URINE 100 mg/dL (NEGATIVE); URINE SPECIFIC GRAVITY 1.011; UROBILINOGEN,URINE NEGATIVE mg/dL (<2.0)
[2017-05-22 17:45] LABS: BLOOD UREA NITROGEN 143 mg/dL (7-20)
[2017-05-22 17:48] LABS: SODIUM 169.3 mmol/L (137-145)
[2017-05-22 18:02] LABS: ABSOLUTE EOSINOPHILS # (AUTO) 0.1 10^3/uL (0.0-0.6); ABSOLUTE LYMPHOCYTES (AUTO) 1.1 10^3/uL (0.5-4.7); ABSOLUTE MONOCYTES (AUTO) 0.4 10^3/uL (0.1-1.4); ABSOLUTE NEUT (AUTO) 4.5 10^3/uL (1.7-8.2); BASOPHILS % (AUTO) 0.4 % (0-2); EOSINOPHILS % (AUTO) 0.8 % (0-6); HEMATOCRIT 30.3 % (37.9-51.0); HEMOGLOBIN 9.5 g/dL (13.5-17.0); HGB HCT DIFFERENCE -1.8; LYMPHOCYTES % (AUTO) 18.2 % (13-45); MEAN CORPUSCULAR HEMOGLOBIN 24.2 pg (27.0-33.4); MEAN CORPUSCULAR HGB CONC 31.3 g/dL (32.0-36.0); RED BLOOD COUNT 3.91 10^6/uL (4.35-5.55); RED CELL DISTRIBUTION WIDTH 21.6 % (11.5-14.0); SEGMENTED NEUTROPHILS % (AUTO) 74.6 % (42-78)
[2017-05-22 18:18] LABS: MEAN CORPUSCULAR VOLUME 78 fl (80-97)
[2017-05-22] MEDS ORDERED: NORMAL SALINE 1000 ML 1,000 ML IV PRN (18:58)
[2017-05-22] MEDS ORDERED: CEFTRIAXONE 1 GM/D5W RTU 1 GM/50 ML RTUPB IV ONE (19:03)
[2017-05-22] MEDS ORDERED: ACETAMINOPHEN 325 MG TABLET PEG PRN (19:19)
[2017-05-22] MEDS ORDERED: IPRATROPIUM/ALBUTEROL 0.5-2.5 MG/3 ML AMPUL NEB PRN (19:20)
[2017-05-22] MEDS ORDERED: DEXTROSE 40% GEL 15 GM TUBE PO PRN ×2 (19:20)
[2017-05-22] MEDS ORDERED: DEXTROSE 50%-WATER 25 GM/50 ML DISP.SYRIN IV PRN ×2 (19:20)
[2017-05-22] MEDS ORDERED: ONDANSETRON HCL INJ/PF 4 MG/2 ML SDV IV PRN (19:20)
[2017-05-22] MEDS ORDERED: GLUCAGON,HUMAN RECOMB 1 MG INJ IM PRN (19:20)
[2017-05-22] MEDS: DEXTROSE 5%-WATER 1000 ML 1,000 ML IV SCH (19:39)
[2017-05-22 21:46] LABS: ANION GAP 11 (5-19); CARBON DIOXIDE 34 mmol/L (22-30); CHLORIDE 123 mmol/L (98-107); GLUCOSE 181 mg/dL (75-110); SODIUM 168.3 mmol/L (137-145)
[2017-05-22 22:01] LABS: BLOOD UREA NITROGEN 132 mg/dL (7-20)
[2017-05-22] MEDS: CARVEDILOL 12.5 MG TABLET PO SCH (23:02)
[2017-05-22] MEDS: HEPARIN SOD (PORCINE) 5,000 UNIT/ML 1 ML SYRINGE SUBCUT SCH (23:02)
[2017-05-23] MEDS: INSULIN LISPRO 100 UNIT/ML 3 ML VIAL SUBCUT PRN ×4 (00:16→18:22)
[2017-05-23 01:41] LABS: ANION GAP 8 (5-19); CALCIUM 8.8 mg/dL (8.4-10.2); CARBON DIOXIDE 35 mmol/L (22-30); CHLORIDE 124 mmol/L (98-107); CREATININE RESULT 2.53 mg/dL (0.52-1.25); GLUCOSE 204 mg/dL (75-110); POTASSIUM 4.2 mmol/L (3.6-5.0); SODIUM 166.9 mmol/L (137-145)
[2017-05-23 01:54] LABS: BLOOD UREA NITROGEN 136 mg/dL (7-20)
[2017-05-23 05:30] LABS: ABSOLUTE LYMPHOCYTES (AUTO) 0.9 10^3/uL (0.5-4.7); ABSOLUTE MONOCYTES (AUTO) 0.3 10^3/uL (0.1-1.4); ABSOLUTE NEUT (AUTO) 4.7 10^3/uL (1.7-8.2); BASOPHILS % (AUTO) 0.2 % (0-2); EOSINOPHILS % (AUTO) 0.6 % (0-6); HEMOGLOBIN 8.4 g/dL (13.5-17.0); HGB HCT DIFFERENCE -0.8; LYMPHOCYTES % (AUTO) 14.8 % (13-45); MEAN CORPUSCULAR HEMOGLOBIN 24.7 pg (27.0-33.4); MEAN CORPUSCULAR HGB CONC 32.2 g/dL (32.0-36.0); MEAN CORPUSCULAR VOLUME 77 fl (80-97); MONOCYTES % (AUTO) 5.5 % (3-13); RED BLOOD COUNT 3.38 10^6/uL (4.35-5.55); RED CELL DISTRIBUTION WIDTH 21.1 % (11.5-14.0); SEGMENTED NEUTROPHILS % (AUTO) 78.9 % (42-78)
[2017-05-23 05:46] LABS: ANION GAP 11 (5-19); CARBON DIOXIDE 32 mmol/L (22-30); CHLORIDE 123 mmol/L (98-107); CREATININE RESULT 2.38 mg/dL (0.52-1.25); GLUCOSE 191 mg/dL (75-110); POTASSIUM 3.9 mmol/L (3.6-5.0); SODIUM 165.7 mmol/L (137-145)
[2017-05-23 05:58] LABS: BLOOD UREA NITROGEN 129 mg/dL (7-20)
--- NOTE | 2017-05-23 06:06 | PDOC H&P ---
History of Present Illness Admission Date/PCP: 05/22/17 19:20 CHAD HILLIARD Patient complains of: Altered mental status History of Present Illness: SEUN TOTH is a 76 year old male who is a long-term [facility] resident with a past medical history of advanced dementia and severe delirium, CVA with recurrent aspiration requiring PEG tube, left BKA, peripheral vascular disease chronic indwelling Catalan, recurrent urinary tract infection, recurrent dehydration with hypernatremia. Patient is noted by alf staff to have altered mental status brought to the emergency room for evaluation where he was found to have urinary tract infection, hypernatremia of 169 and acute renal failure. He started on IV fluid and empiric antibiotics and referred to the hospitalist for admission. Patient is a poor historian unable to cooperate with exam. Past Medical History Cardiac Medical History: Reports: Congestive Heart Failure, Coronary Artery Disease - stent x 1, Myocardial Infarction - 2003, Hyperlipidema, Hypertension, Peripheral Vascular Disease Pulmonary Medical History: Reports: Asthma - as child Denies: Bronchitis, Chronic Obstructive Pulmonary Disease (COPD), Pneumonia, Tuberculosis Neurological Medical History: Denies: Seizures Endocrine Medical History: Reports: Diabetes Mellitus Type 2 GI Medical History: Reports: Gastroesophageal Reflux Disease Denies: Hiatal Hernia Musculoskeltal Medical History: Reports: Arthritis Psychiatric Medical History: Reports: Dementia, Depression Denies: Attention Deficit Hyperactivity Disorder, Bipolar Disorder Hematology: Reports: Anemia Denies: Sickle Cell Disease Past Surgical History Past Surgical History: Reports: Internal Defibrillator, Orthopedic Surgery - left BKA, Vascular Surgery - left groin Social History Lives with: [facility] Smoking Status: Former Smoker Frequency of Alcohol Use: None Hx Recreational Drug Use: No Drugs: None Hx Prescription Drug Abuse: No - Advance Directive Resuscitation Status: Do Not Resuscitate Family History Family History: Reviewed & Not Pertinent, Other - Unobtainable Parental Family History Reviewed: No Children Family History Reviewed: No Sibling(s) Family History Reviewed.: No Medication/Allergy Home Medications: Acetaminophen [Tylenol Arthritis 650 mg Tablet] 650 mg PEG Q6HP PRN 05/22/17 Ascorbic Acid [Vitamin C 500 mg Tablet] 500 mg PEG TID 05/22/17 Aspirin [Aspirin 81 mg Chewable Tablet] 81 mg PEG DAILY 05/22/17 Atorvastatin Calcium [Lipitor 10 mg Tablet] 10 mg PEG QHS 05/22/17 Carvedilol [Coreg 25 mg Tablet] 25 mg PEG Q12 05/22/17 Clopidogrel Bisulfate [Plavix 75 mg Tablet] 75 mg PEG DAILY 05/22/17 Doxazosin Mesylate [Cardura 2 mg Tablet] 2 mg PEG QHS 05/22/17 Ferrous Sulfate [Ferrous Sulfate Liquid 300 mg/5 ml Udcup] 5 ml PEG BID Finasteride [Proscar 5 mg Tablet] 5 mg PEG DAILY 05/22/17 Folic Acid [Folvite 1 mg Tablet] 1 mg PEG DAILY 05/22/17 Insulin Lispro [Humalog Insulin (Lispro) 100 unit/mL] 0 units SQ .SLIDING SCALE 05/22/17 Lansoprazole [Prevacid 30 mg Odt Tablet] 30 mg PEG BID 05/22/17 Latanoprost [Xalatan 0.005% Oph Soln 2.5 ml] 1 drop OU QHS 05/22/17 Losartan Potassium [Cozaar 50 mg Tablet] 50 mg PEG Q12 05/22/17 Multivit-Minerals/Ferrous Gluc [Certa Benigno Liquid] 15 ml PEG DAILY 05/22/17 Polyethylene Glycol 3350 [Miralax Powder 17 gm/Packet] 17 gm PEG DAILY 05/22/17 Sennosides/Docusate 8.6-50 mg [Senna Plus Tablet] 1 tab PEG BIDP PRN 05/22/17 Allergies/Adverse Reactions: No Known Allergies Allergy (Verified 02/22/17 11:56) Review of Systems ROS unobtainable: Due to mental status Physical Exam Vital Signs: Temp Pulse Resp BP Pulse Ox 98.4 F 76 20 102/51 L 96 05/23/17 01:10 05/23/17 02:00 05/23/17 01:10 05/23/17 01:10 05/23/17 01:10 Intake & Output 05/21/17 05/22/17 05/23/17 11:59 11:59 11:59 Intake Total 5650 Output Total 4600 Balance 1050 Weight 76.6 kg General appearance: PRESENT: disheveled, thin, other - Cachexia with temporal wasting. ABSENT: cooperative Head exam: PRESENT: atraumatic, normocephalic Eye exam: PRESENT: conjunctiva pink, EOMI, PERRLA. ABSENT: scleral icterus Ear exam: PRESENT: normal external ear exam Mouth exam: PRESENT: dry mucosa Neck exam: ABSENT: carotid bruit, JVD, lymphadenopathy, thyromegaly Respiratory exam: PRESENT: clear to auscultation joaquin. ABSENT: rales, rhonchi, wheezes Cardiovascular exam: PRESENT: RRR. ABSENT: diastolic murmur, rubs, systolic murmur Pulses: PRESENT: normal dorsalis pedis pul Vascular exam: PRESENT: normal capillary refill GI/Abdominal exam: PRESENT: normal bowel sounds, soft. ABSENT: distended, guarding, mass, organolmegaly, rebound, tenderness Rectal exam: PRESENT: deferred Extremities exam: PRESENT: full ROM. ABSENT: calf tenderness, clubbing, pedal edema Neurological exam: PRESENT: altered, awake, CN II-XII grossly intact Psychiatric exam: PRESENT: appropriate affect, normal mood. ABSENT: homicidal ideation, suicidal ideation Skin exam: PRESENT: dry, intact, warm. ABSENT: cyanosis, rash Results Laboratory Results: 05/23/17 05:17 05/22/17 05/23/17 05/23/17 21:23 01:23 05:17 WBC 6.0 RBC 3.38 L Hgb 8.4 L Hct 26.0 L MCV 77 L MCH 24.7 L MCHC 32.2 RDW 21.1 H Plt Count 142 L Seg Neutrophils % 78.9 H Lymphocytes % 14.8 Monocytes % 5.5 Eosinophils % 0.6 Basophils % 0.2 Absolute Neutrophils 4.7 Absolute Lymphocytes 0.9 Absolute Monocytes 0.3 Absolute Eosinophils 0.0 Absolute Basophils 0.0 Sodium 168.3 H 166.9 H Potassium 4.0 4.2 Chloride 123 H 124 H Carbon Dioxide 34 H 35 H Anion Gap 11 8 BUN 132 H 136 H Creatinine 2.70 H 2.53 H Est GFR ( Amer) 28 L 30 L Est GFR (Non-Af Amer) 23 L 25 L Glucose 181 H 204 H Calcium 9.0 8.8 Assessment & Plan - Diagnosis (1) Hypernatremia Is this a current diagnosis for this admission?: Yes Plan: Likely secondary to discontinuation of tapwater with PEG tube feeds. D5W at 100 mL/h, 250 mL tap water per PEG every 6 hours. Reevaluation of chemistry every 6 hours in an effort to avoid rapid correction. (2) Acute renal insufficiency Is this a current diagnosis for this admission?: Yes Plan: Secondary to severe dehydration please see #1 follow-up chemistry (3) Bacteriuria with pyuria Is this a current diagnosis for this admission?: Yes Plan: Empiric antibiotics, blood and urine culture follow-up CBC (4) Senile dementia, delirium Is this a current diagnosis for this admission?: Yes Plan: Patient has required restraints for combative behavior on previous admissions. Soft limb restraints as needed consider Risperdal - Time Time Spent: 50 to 70 Minutes - Inpatient Certification Medical Necessity: Need Close Monitoring Due to Risk of Patient Decompensation
[2017-05-23] MEDS: HEPARIN SOD (PORCINE) 5,000 UNIT/ML 1 ML SYRINGE SUBCUT SCH ×3 (06:31→21:33)
[2017-05-23] MEDS: DEXTROSE 5%-WATER 1000 ML 1,000 ML IV SCH (07:20)
[2017-05-23] MEDS: CLOPIDOGREL BISULFATE 75 MG TABLET PEG SCH (09:59)
[2017-05-23] MEDS: ASCORBIC ACID 500 MG TABLET PEG SCH ×3 (09:59→18:21)
[2017-05-23] MEDS: ASPIRIN 81 MG TABLET, CHEWABLE PEG SCH (09:59)
[2017-05-23] MEDS ORDERED: DOCUSATE SODIUM 100 MG/10 ML UDC PEG SCH (10:00)
[2017-05-23] MEDS: DOCUSATE SODIUM 100 MG CAPSULE PO SCH ×2 (10:00→17:36)
[2017-05-23] MEDS ORDERED: CEFEPIME 1 GM/D5W RTU 1 GM/50 ML RTUPB IV SCH (10:00)
[2017-05-23] MEDS: CARVEDILOL 12.5 MG TABLET PO SCH ×2 (10:00→21:33)
[2017-05-23] MEDS: CEFEPIME 1 GM/D5W RTU 1 GM/50 ML RTUPB IV SCH (10:00)
[2017-05-23 10:46] LABS: ANION GAP 13 (5-19); CALCIUM 8.8 mg/dL (8.4-10.2); CARBON DIOXIDE 31 mmol/L (22-30); CHLORIDE 122 mmol/L (98-107); CREATININE RESULT 2.18 mg/dL (0.52-1.25); GLUCOSE 190 mg/dL (75-110); POTASSIUM 3.7 mmol/L (3.6-5.0); SODIUM 166.2 mmol/L (137-145)
[2017-05-23 10:55] LABS: BLOOD UREA NITROGEN 120 mg/dL (7-20)
--- NOTE | 2017-05-23 11:08 | PDOC PROGRESS REPORT ---
Subjective Progress Note for:: 05/23/17 Subjective:: The patient is a 76-year-old male with advanced dementia who [facility] a [facility]. He has had a previous stroke. Post CVA he has had recurrent aspiration events. Previously, he has had a PEG tube in place. He has a chronic indwelling Catalan catheter. The patient presents with severe hypernatremia. He also presents with severe renal failure, likely acute on chronic. This morning, I could not obtain review of systems. Physical Exam Vital Signs: Temp Pulse Resp BP Pulse Ox 98.1 F 76 16 111/93 H 95 05/23/17 07:32 05/23/17 08:06 05/23/17 08:06 05/23/17 07:32 05/23/17 08:06 Intake & Output 05/22/17 05/23/17 05/24/17 06:59 06:59 06:59 Intake Total 9450 250 Output Total 39704 Balance -1050 250 Weight 76.9 kg Additional comments: The patient does not appear to be in any distress, however, he does have audible wheezing noted. He is not oriented to place. He was unable to answer any of my questions and does not interact appropriately. His lungs demonstrate diffuse rails and expiratory wheezing. His cardiac exam is regular and does not demonstrate any murmurs, gallops or rubs. The abdomen is minimally distended. He does not have any guarding or rebound noted. There are no hernias or masses present. Patient's right lower extremity is unremarkable. Patient's left lower extremity is noteworthy for below the knee amputation with a well-healed stump site. Results Laboratory Results: 05/23/17 05:17 05/23/17 10:11 05/22/17 05/23/17 05/23/17 21:23 01:23 05:17 WBC RBC Hgb Hct MCV MCH MCHC RDW Plt Count Seg Neutrophils % Lymphocytes % Monocytes % Eosinophils % Basophils % Absolute Neutrophils Absolute Lymphocytes Absolute Monocytes Absolute Eosinophils Absolute Basophils Sodium 168.3 H 166.9 H 165.7 H Potassium 4.0 4.2 3.9 Chloride 123 H 124 H 123 H Carbon Dioxide 34 H 35 H 32 H Anion Gap 11 8 11 BUN 132 H 136 H 129 H Creatinine 2.70 H 2.53 H 2.38 H Est GFR ( Amer) 28 L 30 L 32 L Est GFR (Non-Af Amer) 23 L 25 L 27 L Glucose 181 H 204 H 191 H Calcium 9.0 8.8 9.0 05/23/17 05/23/17 05:17 10:11 WBC 6.0 RBC 3.38 L Hgb 8.4 L Hct 26.0 L MCV 77 L MCH 24.7 L MCHC 32.2 RDW 21.1 H Plt Count 142 L Seg Neutrophils % 78.9 H Lymphocytes % 14.8 Monocytes % 5.5 Eosinophils % 0.6 Basophils % 0.2 Absolute Neutrophils 4.7 Absolute Lymphocytes 0.9 Absolute Monocytes 0.3 Absolute Eosinophils 0.0 Absolute Basophils 0.0 Sodium 166.2 H Potassium 3.7 Chloride 122 H Carbon Dioxide 31 H Anion Gap 13 BUN 120 H Creatinine 2.18 H Est GFR ( Amer) 36 L Est GFR (Non-Af Amer) 30 L Glucose 190 H Calcium 8.8 Assessment & Plan - Diagnosis (1) Bacteriuria with pyuria Is this a current diagnosis for this admission?: Yes (2) Hypernatremia Is this a current diagnosis for this admission?: Yes (3) Senile dementia, delirium Is this a current diagnosis for this admission?: Yes - Time Time Spent with patient: 25-34 minutes - Inpatient Certification Medical Necessity: Significant Comorbidiites Make Outpatient Treatment Too Risky , Need Close Monitoring Due to Risk of Patient Decompensation, Need For IV Fluids, Need for Neurological Checks - Plan Summary Plan Summary: The patient is gravely ill. I did speak with his niece, Carrie Palomares. She is his DURABLE POWER OF HAIRCUTTER. We did discuss goals of care. She wants all reasonable measures taken to ensure her Uncle's survival. At this point time we are continuing IV fluids to be complete the patient's free water. He does have a history of heart failure. His chart reflects both systolic and diastolic. He may require Lasix. We will need to monitor his respiratory status closely. We are also following his labs very closely. His hemoglobin and hematocrit did drop secondary to IV fluid replacement.
[2017-05-23 16:31] LABS: ANION GAP 10 (5-19); BLOOD UREA NITROGEN 119 mg/dL (7-20); CALCIUM 9.1 mg/dL (8.4-10.2); CARBON DIOXIDE 34 mmol/L (22-30); CHLORIDE 121 mmol/L (98-107); CREATININE RESULT 2.08 mg/dL (0.52-1.25); GLUCOSE 187 mg/dL (75-110); MAGNESIUM 2.7 mg/dL (1.6-2.3); POTASSIUM 3.8 mmol/L (3.6-5.0); SODIUM 164.8 mmol/L (137-145)
[2017-05-23] MEDS ORDERED: POTASSIUM CHLORIDE 10 MEQ TABLET.SA PO ONE (17:30)
[2017-05-23] MEDS ORDERED: POTASSIUM CHLORIDE 20 MEQ/15 ML UDCUP PEG ONE (17:45)
[2017-05-23] MEDS: DEXTROSE 5%-WATER 1000 ML 1,000 ML IV PRN (18:22)
[2017-05-23 20:26] LABS: ANION GAP 12 (5-19); BLOOD UREA NITROGEN 113 mg/dL (7-20); CALCIUM 8.5 mg/dL (8.4-10.2); CARBON DIOXIDE 33 mmol/L (22-30); CHLORIDE 120 mmol/L (98-107); CREATININE RESULT 1.85 mg/dL (0.52-1.25); GLUCOSE 153 mg/dL (75-110); POTASSIUM 4.1 mmol/L (3.6-5.0); SODIUM 164.6 mmol/L (137-145)
--- NOTE | 2017-05-23 21:19 | EKG REPORT ---
SEVERITY:- ABNORMAL ECG - SINUS RHYTHM WITH PACS NONSPECIFIC INTRAVENTRICULAR CONDUCTION DELAY INFERIOR INFARCT, AGE INDETERMINATE NONSPECIFIC ST-T CHANGES ANTEROLATERAL ST CHANGES. : Confirmed by: Regulo Lauren MD 23-May-2017 21:18:46
[2017-05-24 00:22] LABS: ANION GAP 11 (5-19); BLOOD UREA NITROGEN 112 mg/dL (7-20); CALCIUM 9.2 mg/dL (8.4-10.2); CARBON DIOXIDE 33 mmol/L (22-30); CHLORIDE 119 mmol/L (98-107); CREATININE RESULT 1.95 mg/dL (0.52-1.25); GLUCOSE 188 mg/dL (75-110); POTASSIUM 3.8 mmol/L (3.6-5.0); SODIUM 162.5 mmol/L (137-145)
[2017-05-24] MEDS: INSULIN LISPRO 100 UNIT/ML 3 ML VIAL SUBCUT PRN ×4 (01:12→18:26)
[2017-05-24 03:53] LABS: ANION GAP 12 (5-19); BLOOD UREA NITROGEN 106 mg/dL (7-20); CALCIUM 8.7 mg/dL (8.4-10.2); CARBON DIOXIDE 32 mmol/L (22-30); CHLORIDE 119 mmol/L (98-107); GLUCOSE 194 mg/dL (75-110); POTASSIUM 3.8 mmol/L (3.6-5.0); SODIUM 163.1 mmol/L (137-145)
[2017-05-24] MEDS: HEPARIN SOD (PORCINE) 5,000 UNIT/ML 1 ML SYRINGE SUBCUT SCH ×3 (05:05→21:10)
[2017-05-24] MEDS: DEXTROSE 5%-WATER 1000 ML 1,000 ML IV PRN ×2 (06:24→21:17)
[2017-05-24 09:24] LABS: ANION GAP 12 (5-19); BLOOD UREA NITROGEN 99 mg/dL (7-20); CARBON DIOXIDE 30 mmol/L (22-30); CHLORIDE 118 mmol/L (98-107); CREATININE RESULT 1.69 mg/dL (0.52-1.25); GLUCOSE 239 mg/dL (75-110); POTASSIUM 3.9 mmol/L (3.6-5.0); SODIUM 160.4 mmol/L (137-145)
[2017-05-24] MEDS: CARVEDILOL 12.5 MG TABLET PO SCH ×2 (09:59→21:17)
[2017-05-24] MEDS: CEFEPIME 1 GM/D5W RTU 1 GM/50 ML RTUPB IV SCH (09:59)
[2017-05-24] MEDS: ASPIRIN 81 MG TABLET, CHEWABLE PEG SCH (09:59)
[2017-05-24] MEDS: CLOPIDOGREL BISULFATE 75 MG TABLET PEG SCH (09:59)
[2017-05-24] MEDS: ASCORBIC ACID 500 MG TABLET PEG SCH ×3 (09:59→17:15)
[2017-05-24] MEDS: DOCUSATE SODIUM 100 MG CAPSULE PO SCH ×2 (10:15→17:25)
--- NOTE | 2017-05-24 12:02 | PDOC PROGRESS REPORT ---
Subjective Progress Note for:: 05/24/17 Subjective:: The patient is a 76-year-old male with advanced dementia who resides in a long-term facility. He has had a previous stroke. Post CVA he has had recurrent aspiration events. He has a chronic PEG tube in place. He has a chronic indwelling Catalan catheter. The patient presents with severe hypernatremia. He also presents with severe renal failure, likely acute on chronic. Yesterday, the patient was awake, but more delirious. Today, the patient appears to be more awake. Today, the patient is noted to be belligerent. I cannot obtain review of systems. Physical Exam Vital Signs: Temp Pulse Resp BP Pulse Ox 97.7 F 24 L 18 106/61 94 05/24/17 11:20 05/24/17 11:20 05/24/17 11:20 05/24/17 11:20 05/24/17 11:20 Intake & Output 05/23/17 05/24/17 05/25/17 06:59 06:59 06:59 Intake Total 9450 7827 87 Output Total 68749 17192 Balance -1050 -3173 87 Weight 76.9 kg 78.7 kg Additional comments: The patient was again noted to be more awake. I had a difficult time examining the patient because he continued to push me away. His lungs sounded clearer today but were still coarse bilaterally. His cardiac exam appears to be irregularly irregular. I did not appreciate any murmurs, gallops or rubs. It was very difficult for me to examine the patient's abdomen but it appeared to be soft and the PEG tube site was clean dry and intact. Patient is status post left below the knee amputation and the right lower extremity did have a few lesions and excoriations but no edema. He did not appear to have any acute skin lesions or rashes. Results Laboratory Results: 05/23/17 05:17 05/24/17 08:37 05/23/17 05/23/17 05/23/17 13:55 15:48 19:35 Sodium Cancelled 164.8 H 164.6 H Potassium Cancelled 3.8 4.1 Chloride Cancelled 121 H 120 H Carbon Dioxide Cancelled 34 H 33 H Anion Gap Cancelled 10 12 BUN Cancelled 119 H 113 H Creatinine Cancelled 2.08 H 1.85 H Est GFR ( Amer) Cancelled 38 L 43 L Est GFR (Non-Af Amer) Cancelled 31 L 36 L Glucose Cancelled 187 H 153 H Calcium Cancelled 9.1 8.5 Magnesium 2.7 H 05/23/17 05/24/17 05/24/17 23:52 03:21 08:37 Sodium 162.5 H 163.1 H 160.4 H Potassium 3.8 3.8 3.9 Chloride 119 H 119 H 118 H Carbon Dioxide 33 H 32 H 30 Anion Gap 11 12 12 BUN 112 H 106 H 99 H Creatinine 1.95 H 1.90 H 1.69 H Est GFR ( Amer) 41 L 42 L 48 L Est GFR (Non-Af Amer) 34 L 35 L 40 L Glucose 188 H 194 H 239 H Calcium 9.2 8.7 9.0 Magnesium Assessment & Plan - Diagnosis (1) Bacteriuria with pyuria Is this a current diagnosis for this admission?: Yes Plan: Urine culture is growing greater than 100,000 gram-negative rods. Continue cefepime. (2) Hypernatremia Is this a current diagnosis for this admission?: Yes Plan: Slightly improved. Continue D5W. (3) Senile dementia, delirium Is this a current diagnosis for this admission?: Yes Plan: Patient is likely at his baseline. He appears to have very severe and advanced dementia. (4) Acute kidney injury Is this a current diagnosis for this admission?: Yes Plan: Improving with hydration. We are monitoring closely and following electrolyte disturbances closely. (5) Anemia Qualifiers: Anemia type: unspecified type Qualified Code(s): D64.9 - Anemia, unspecified Is this a current diagnosis for this admission?: Yes Plan: I will need to try to find old labs on this patient. If the anemia is new this needs to be worked up. - Time Time Spent with patient: 25-34 minutes - Inpatient Certification Medical Necessity: Significant Comorbidiites Make Outpatient Treatment Too Risky , Need Close Monitoring Due to Risk of Patient Decompensation, Need for IV Antibiotics
--- NOTE | 2017-05-24 12:22 | Progress Note ---
Provider Note Provider Note: The patient has had multiple admissions. He has had multiple admissions demonstrating hemoglobin values in the 7 and 8 range. Therefore, I am not as worried about the anemia as this appears to be chronic and can be followed over time. However, during the patient's most recent admission he was found to have severe bladder outlet obstruction. Also, during his last admission for hematuria he had fairly normal renal function. Thus, I am worried about postobstructive renal failure. I have ordered a stat renal ultrasound.
[2017-05-24 14:38] LABS: ANION GAP 10 (5-19); BLOOD UREA NITROGEN 94 mg/dL (7-20); CALCIUM 8.7 mg/dL (8.4-10.2); CARBON DIOXIDE 30 mmol/L (22-30); CHLORIDE 118 mmol/L (98-107); CREATININE RESULT 1.52 mg/dL (0.52-1.25); GLUCOSE 221 mg/dL (75-110); POTASSIUM 3.9 mmol/L (3.6-5.0); SODIUM 158.2 mmol/L (137-145)
[2017-05-24] MEDS ORDERED: LORAZEPAM INJ 2 MG/1 ML VIAL IV PRN (16:41)
--- NOTE | 2017-05-24 17:59 | RADIOLOGY REPORT (SQ) ---
EXAM DESCRIPTION: U/S RETROPERITON LTD COMPLETED DATE/TIME: 05/24/2017 5:39 pm REASON FOR STUDY: ARF COMPARISON: None. TECHNIQUE: Dynamic and static grayscale images acquired of the kidneys and bladder and recorded on P ACS. Additional selected color Doppler and spectral images recorded. LIMITATIONS: Limiting bowel gas. FINDINGS: RIGHT KIDNEY: Normal size. Normal echogenicity. No solid or suspicious masses. No hydronep hrosis. No calcifications. LEFT KIDNEY: Normal size. Normal echogenicity. No solid or suspicious masses. No hydronephrosis. No calcifications. BLADDER: Catalan catheter in place. Markedly enlarged prostate at 9 x 10 x 7 cm. OTHER FINDINGS: No other significant finding. IMPRESSION: 1. No evidence of urinary obstruction. Mildly limited assessment of the left kidney. N o hydronephrosis is detected, however. 2. Marked prostate enlargement. TECHNICAL DOCUMENTATION: JOB ID: [id number] [facility]- All Rights Reserved
[2017-05-24 18:32] LABS: ANION GAP 12 (5-19); BLOOD UREA NITROGEN 90 mg/dL (7-20); CALCIUM 8.7 mg/dL (8.4-10.2); CARBON DIOXIDE 29 mmol/L (22-30); CHLORIDE 117 mmol/L (98-107); CREATININE RESULT 1.54 mg/dL (0.52-1.25); GLUCOSE 192 mg/dL (75-110); POTASSIUM 3.7 mmol/L (3.6-5.0)
--- NOTE | 2017-05-24 20:18 | EKG REPORT ---
SEVERITY:- ABNORMAL ECG - SINUS RHYTHM NONSPECIFIC INTRAVENTRICULAR CONDUCTION DELAY INFERIOR INFARCT, OLD ANTEROLATERAL NONSPECIFIC ST-T CHANGES. : Confirmed by: Regulo Lauren MD 24-May-2017 20:17:22
[2017-05-24 22:36] LABS: ANION GAP 10 (5-19); BLOOD UREA NITROGEN 82 mg/dL (7-20); CALCIUM 8.6 mg/dL (8.4-10.2); CARBON DIOXIDE 31 mmol/L (22-30); CHLORIDE 116 mmol/L (98-107); CREATININE RESULT 1.55 mg/dL (0.52-1.25); GLUCOSE 172 mg/dL (75-110); POTASSIUM 3.8 mmol/L (3.6-5.0)
[2017-05-25] MEDS: INSULIN LISPRO 100 UNIT/ML 3 ML VIAL SUBCUT PRN ×2 (00:50→08:04)
[2017-05-25 02:43] LABS: ANION GAP 10 (5-19); BLOOD UREA NITROGEN 83 mg/dL (7-20); CALCIUM 8.5 mg/dL (8.4-10.2); CARBON DIOXIDE 30 mmol/L (22-30); CHLORIDE 118 mmol/L (98-107); CREATININE RESULT 1.48 mg/dL (0.52-1.25); GLUCOSE 195 mg/dL (75-110); POTASSIUM 4.2 mmol/L (3.6-5.0); SODIUM 157.7 mmol/L (137-145)
[2017-05-25] MEDS: HEPARIN SOD (PORCINE) 5,000 UNIT/ML 1 ML SYRINGE SUBCUT SCH ×3 (04:57→22:18)
[2017-05-25 07:36] LABS: ANION GAP 9 (5-19); BLOOD UREA NITROGEN 71 mg/dL (7-20); CALCIUM 8.5 mg/dL (8.4-10.2); CARBON DIOXIDE 32 mmol/L (22-30); CHLORIDE 114 mmol/L (98-107); CREATININE RESULT 1.44 mg/dL (0.52-1.25); GLUCOSE 245 mg/dL (75-110); POTASSIUM 3.6 mmol/L (3.6-5.0); SODIUM 155.3 mmol/L (137-145)
[2017-05-25 08:46] LABS: FOLATE > 20.00 ng/mL (>2.76)
[2017-05-25] MEDS: CEFEPIME 1 GM/D5W RTU 1 GM/50 ML RTUPB IV SCH (09:32)
[2017-05-25] MEDS: CARVEDILOL 12.5 MG TABLET PO SCH ×2 (09:33→22:18)
[2017-05-25] MEDS: CLOPIDOGREL BISULFATE 75 MG TABLET PEG SCH (09:33)
[2017-05-25] MEDS: ASCORBIC ACID 500 MG TABLET PEG SCH ×3 (09:33→17:20)
[2017-05-25] MEDS: ASPIRIN 81 MG TABLET, CHEWABLE PEG SCH (09:33)
--- NOTE | 2017-05-25 12:52 | PDOC PROGRESS REPORT ---
Subjective Progress Note for:: 05/25/17 Subjective:: The patient is a 76-year-old male with advanced dementia who [facility]. He has had a previous stroke. Post CVA he has had recurrent aspiration events. He has a chronic PEG tube in place. He has a chronic indwelling Catalan catheter. The patient presents with severe hypernatremia. He also presents with severe renal failure, likely acute on chronic. Urine culture is growing Acinetobacter. The organism is sensitive to cefepime which the patient is receiving. Last evening, the patient appeared to be much more awake and interactive. He was pleasant. This morning, he is awake but he is agitated. Physical Exam Vital Signs: Temp Pulse Resp BP Pulse Ox 98.9 F 97 18 149/82 H 91 L 05/25/17 12:00 05/25/17 12:00 05/25/17 12:00 05/25/17 12:00 05/25/17 12:00 Intake & Output 05/24/17 05/25/17 05/26/17 06:59 06:59 06:59 Intake Total 7827 29674 Output Total 95501 84082 Balance -3173 2711 Weight 78.7 kg 79.2 kg Additional comments: The patient was slightly agitated this morning. His facial appearance is unremarkable. The patient is demented and unable to give any review of systems. His lungs remain coarse, but unchanged. The rales are diffuse. The cardiac exam is irregularly irregular. I do not appreciate any murmurs, gallops or rubs. The abdomen is soft and flat. The PEG tube site is clean dry and intact. The abdomen is benign. The patient is status post left below the knee amputation. The right lower extremity is slightly cool at the foot. No edema is present. The patient does have a few stable excoriations on the right lower extremity. Otherwise, the skin is warm dry and intact without lesions or rashes. Results Laboratory Results: 05/23/17 05:17 05/25/17 06:53 05/24/17 05/24/17 05/24/17 13:30 17:50 21:50 Retic Count (auto) Absolute Retic Sodium 158.2 H 158.0 H 157.0 H Potassium 3.9 3.7 3.8 Chloride 118 H 117 H 116 H Carbon Dioxide 30 29 31 H Anion Gap 10 12 10 BUN 94 H 90 H 82 H Creatinine 1.52 H 1.54 H 1.55 H Est GFR ( Amer) 54 L 53 L 53 L Est GFR (Non-Af Amer) 45 L 44 L 44 L Glucose 221 H 192 H 172 H Calcium 8.7 8.7 8.6 Iron TIBC % Saturation Ferritin Vitamin B12 Folate 05/25/17 05/25/17 05/25/17 02:06 06:53 06:53 Retic Count (auto) 0.99 Absolute Retic 0.029 Sodium 157.7 H 155.3 H Potassium 4.2 3.6 Chloride 118 H 114 H Carbon Dioxide 30 32 H Anion Gap 10 9 BUN 83 H 71 H Creatinine 1.48 H 1.44 H Est GFR ( Amer) 56 L 58 L Est GFR (Non-Af Amer) 46 L 48 L Glucose 195 H 245 H Calcium 8.5 8.5 Iron < 10.1 L TIBC 199 L % Saturation UNABLE TO CALCULATE Ferritin 69.90 Vitamin B12 > 1000.0 H Folate > 20.00 05/23/17 08:45 Nasophary (Mrsa Only) MRSA Culture - Final MRSA RECOVERED Impressions: Renal Ultrasound 05/24/17 16:02 IMPRESSION: 1. No evidence of urinary obstruction. Mildly limited assessment of the left kidney. No hydronephrosis is detected, however. 2. Marked prostate enlargement. Assessment & Plan - Diagnosis (1) Bacteriuria with pyuria Is this a current diagnosis for this admission?: Yes Plan: Urine culture is growing greater than 100,000 gram-negative rods. The organism has now been identified as Acinetobacter. Continue cefepime. (2) Hypernatremia Is this a current diagnosis for this admission?: Yes Plan: Improving. I will change to free water and flushes. (3) Senile dementia, delirium Is this a current diagnosis for this admission?: Yes Plan: Patient is likely at his baseline. He appears to have very severe and advanced dementia. (4) Acute kidney injury Is this a current diagnosis for this admission?: Yes Plan: Improving with hydration. We are monitoring closely and following electrolyte disturbances closely. Stat renal ultrasound from yesterday was unremarkable without evidence of obstruction or hydronephrosis. (5) Anemia Qualifiers: Anemia type: unspecified type Qualified Code(s): D64.9 - Anemia, unspecified Is this a current diagnosis for this admission?: Yes Plan: The patient's anemia is not new. This appears to be secondary to both iron deficiency and anemia of chronic disease. Due to the anemia the patient is not a candidate for anticoagulation. I will start iron therapy. He does not require transfusion at this time. (6) Paroxysmal atrial fibrillation Is this a current diagnosis for this admission?: Yes Plan: The patient has shown evidence of paroxysmal atrial fibrillation during this hospitalization. This is certainly not surprising by his history. He is currently stable. I do not think the patient is appropriate for anticoagulation. He is receiving aspirin and plavix. - Time Time Spent with patient: 15-24 minutes - Inpatient Certification Medical Necessity: Need Close Monitoring Due to Risk of Patient Decompensation, Need for IV Antibiotics, Risk of Complication if Not Cared For in Hospital
[2017-05-25] MEDS ORDERED: IPRATROPIUM/ALBUTEROL 0.5-2.5 MG/3 ML AMPUL NEB PRN (13:30)
[2017-05-25] MEDS: FERROUS SULFATE 325 MG TABLET PO SCH (17:20)
[2017-05-26 06:35] LABS: ABSOLUTE EOSINOPHILS # (AUTO) 0.2 10^3/uL (0.0-0.6); ABSOLUTE LYMPHOCYTES (AUTO) 1.1 10^3/uL (0.5-4.7); ABSOLUTE MONOCYTES (AUTO) 0.3 10^3/uL (0.1-1.4); ABSOLUTE NEUT (AUTO) 3.6 10^3/uL (1.7-8.2); BASOPHILS % (AUTO) 0.4 % (0-2); HEMATOCRIT 21.9 % (37.9-51.0); HGB HCT DIFFERENCE -0.9; LYMPHOCYTES % (AUTO) 20.5 % (13-45); MEAN CORPUSCULAR HGB CONC 31.8 g/dL (32.0-36.0); MEAN CORPUSCULAR VOLUME 76 fl (80-97); MONOCYTES % (AUTO) 6.6 % (3-13); SEGMENTED NEUTROPHILS % (AUTO) 68.5 % (42-78); WHITE BLOOD COUNT 5.2 10^3/uL (4.0-10.5)
[2017-05-26 06:42] LABS: ANION GAP 10 (5-19); BLOOD UREA NITROGEN 59 mg/dL (7-20); CALCIUM 8.2 mg/dL (8.4-10.2); CARBON DIOXIDE 30 mmol/L (22-30); CHLORIDE 114 mmol/L (98-107); CREATININE RESULT 1.28 mg/dL (0.52-1.25); GLUCOSE 202 mg/dL (75-110); MAGNESIUM 2.5 mg/dL (1.6-2.3); PHOSPHORUS 3.9 mg/dL (2.5-4.5); POTASSIUM 3.8 mmol/L (3.6-5.0)
[2017-05-26] MEDS: INSULIN LISPRO 100 UNIT/ML 3 ML VIAL SUBCUT PRN ×2 (06:50→11:00)
[2017-05-26] MEDS: HEPARIN SOD (PORCINE) 5,000 UNIT/ML 1 ML SYRINGE SUBCUT SCH (06:50)
[2017-05-26] MEDS ORDERED: NORMAL SALINE 250 ML IV PRN ×2 (07:54)
[2017-05-26] MEDS: POLYETHYLENE GLYCOL 3350 POWDER 17 GM/1 PACKET PO SCH (10:45)
[2017-05-26] MEDS: ASPIRIN 81 MG TABLET, CHEWABLE PEG SCH (10:46)
[2017-05-26] MEDS: FERROUS SULFATE 325 MG TABLET PO SCH ×3 (10:46→16:58)
[2017-05-26] MEDS: CLOPIDOGREL BISULFATE 75 MG TABLET PEG SCH (10:46)
[2017-05-26] MEDS: CEFEPIME 1 GM/D5W RTU 1 GM/50 ML RTUPB IV SCH (10:46)
[2017-05-26] MEDS: CARVEDILOL 12.5 MG TABLET PO SCH (10:46)
[2017-05-26] MEDS: ASCORBIC ACID 500 MG TABLET PEG SCH ×3 (10:47→17:01)
--- NOTE | 2017-05-26 12:26 | PDOC PROGRESS REPORT ---
Subjective Subjective:: Mr. Rodriguez is a 76-year-old male with advanced dementia who resides in a [facility] facility. He has had a previous stroke. Post CVA he has had recurrent aspiration events. He has a chronic PEG tube in place. He has a chronic indwelling Catalan catheter. The patient presents with severe hypernatremia. He also presents with severe renal failure, likely acute on chronic. Urine culture is growing Acinetobacter. The organism is sensitive to cefepime which the patient is receiving. No overnight events. This AM patient in bed with covers over head. Would not answer questions other than nodding head Y/N. Noted to have decrease in Hg however no reported signs of blood in urine or stool, per conversation with patient's RN. Patient denying pain, SOB, respiratory symptoms. Unable to obtain any additional information at this time. Physical Exam Vital Signs: Temp Pulse Resp BP Pulse Ox 98.2 F 63 17 110/44 L 98 05/26/17 00:16 05/26/17 07:00 05/26/17 00:16 05/26/17 00:16 05/26/17 00:16 Intake & Output 05/25/17 05/26/17 05/27/17 06:59 06:59 06:59 Intake Total 59194 1393 543 Output Total 40192 8000 Balance 1052 -0375 543 Weight 79.2 kg 79.6 kg General appearance: PRESENT: well-developed, well-nourished. ABSENT: cooperative - Non conversational Head exam: PRESENT: atraumatic, normocephalic Eye exam: PRESENT: conjunctiva pink. ABSENT: scleral icterus Mouth exam: PRESENT: moist Neck exam: ABSENT: carotid bruit, JVD, lymphadenopathy, thyromegaly Respiratory exam: PRESENT: clear to auscultation joaquin. ABSENT: rales, rhonchi, wheezes Cardiovascular exam: PRESENT: RRR. ABSENT: diastolic murmur, rubs, systolic murmur Pulses: PRESENT: normal dorsalis pedis pul Vascular exam: PRESENT: normal capillary refill GI/Abdominal exam: PRESENT: normal bowel sounds, soft. ABSENT: distended, guarding, mass, organolmegaly, rebound, tenderness Rectal exam: PRESENT: deferred Extremities exam: ABSENT: calf tenderness, clubbing, pedal edema Neurological exam: PRESENT: other - Unable to assess as patient not cooperative Psychiatric exam: PRESENT: appropriate affect, normal mood. ABSENT: homicidal ideation, suicidal ideation Focused psych exam: PRESENT: other - Unable to assess Skin exam: PRESENT: dry, intact, warm. ABSENT: cyanosis, rash Results Laboratory Results: 05/26/17 05:11 05/26/17 05:11 05/25/17 05/26/17 05/26/17 06:53 05:11 05:11 WBC 5.2 RBC 2.90 L Hgb 7.0 L Hct 21.9 L MCV 76 L MCH 24.0 L MCHC 31.8 L RDW 21.0 H Plt Count 144 L Seg Neutrophils % 68.5 Lymphocytes % 20.5 Monocytes % 6.6 Eosinophils % 4.0 Basophils % 0.4 Absolute Neutrophils 3.6 Absolute Lymphocytes 1.1 Absolute Monocytes 0.3 Absolute Eosinophils 0.2 Absolute Basophils 0.0 Sodium 154.0 H Potassium 3.8 Chloride 114 H Carbon Dioxide 30 Anion Gap 10 BUN 59 H Creatinine 1.28 H Est GFR ( Amer) > 60 Est GFR (Non-Af Amer) 55 L Glucose 202 H Calcium 8.2 L Phosphorus 3.9 Magnesium 2.5 H Transferrin 131 L Blood Type Antibody Screen 05/26/17 09:03 WBC RBC Hgb Hct MCV MCH MCHC RDW Plt Count Seg Neutrophils % Lymphocytes % Monocytes % Eosinophils % Basophils % Absolute Neutrophils Absolute Lymphocytes Absolute Monocytes Absolute Eosinophils Absolute Basophils Sodium Potassium Chloride Carbon Dioxide Anion Gap BUN Creatinine Est GFR ( Amer) Est GFR (Non-Af Amer) Glucose Calcium Phosphorus Magnesium Transferrin Blood Type B POSITIVE Antibody Screen NEGATIVE 05/23/17 08:45 Nasophary (Mrsa Only) MRSA Culture - Final MRSA RECOVERED Impressions: Renal Ultrasound 05/24/17 16:02 IMPRESSION: 1. No evidence of urinary obstruction. Mildly limited assessment of the left kidney. No hydronephrosis is detected, however. 2. Marked prostate enlargement. Assessment & Plan - Diagnosis (1) Acute renal insufficiency Is this a current diagnosis for this admission?: Yes Plan: Creatinine downtrending, currently 1.28 on today's labs. Continue to monitor. Likely pre-renal. (2) Hypernatremia Is this a current diagnosis for this admission?: Yes Plan: Slight improvement continued to yesterday's labs. Continue free water flushes. (3) Senile dementia, delirium Is this a current diagnosis for this admission?: Yes Plan: Patient appears to be at baseline (4) Anemia Qualifiers: Anemia type: iron deficiency Is this a current diagnosis for this admission?: Yes Plan: Most active issues. Hg has downtrended from 10 on 05/26 to 7.0 on 05/28. Per discussion with RN, no obvious source of bleeding. Unable to perform exam to examine for bleeding as patient was uncooperative. Anemia work up performed yesterday. Labs consistent with iron deficiency anemia (low total iron, ferritin , and MCV). Unclear if this is nutritional related or from blood loss. Plan - Will give 1U pRBC today (consent will be obtained by RN) - Follow up in repeat H&H toady - Would benefit from digital rectal exam/hemoccult study to assess for blood - Try to obtain colonoscopy history - SQH (Heparin) stopped given anemia/unclear source, can result once improvement in H&H - Time Time Spent with patient: Less than 15 minutes Critical Time spent with patient: 15-24 minutes Medications reviewed and adjusted accordingly: Yes
[2017-05-26 18:18] LABS: ABSOLUTE EOSINOPHILS # (AUTO) 0.2 10^3/uL (0.0-0.6); ABSOLUTE LYMPHOCYTES (AUTO) 1.3 10^3/uL (0.5-4.7); ABSOLUTE MONOCYTES (AUTO) 0.5 10^3/uL (0.1-1.4); ABSOLUTE NEUT (AUTO) 5.3 10^3/uL (1.7-8.2); BASOPHILS % (AUTO) 0.5 % (0-2); EOSINOPHILS % (AUTO) 3.4 % (0-6); HEMATOCRIT 24.4 % (37.9-51.0); HGB HCT DIFFERENCE -0.7; LYMPHOCYTES % (AUTO) 17.4 % (13-45); MEAN CORPUSCULAR HEMOGLOBIN 24.9 pg (27.0-33.4); MEAN CORPUSCULAR HGB CONC 32.5 g/dL (32.0-36.0); MEAN CORPUSCULAR VOLUME 77 fl (80-97); MONOCYTES % (AUTO) 6.5 % (3-13); RED BLOOD COUNT 3.19 10^6/uL (4.35-5.55); RED CELL DISTRIBUTION WIDTH 20.7 % (11.5-14.0); SEGMENTED NEUTROPHILS % (AUTO) 72.2 % (42-78); WHITE BLOOD COUNT 7.3 10^3/uL (4.0-10.5)
[2017-05-26 18:21] LABS: HEMOGLOBIN 7.9 g/dL (13.5-17.0)
[2017-05-27] MEDS: CARVEDILOL 12.5 MG TABLET PO SCH ×3 (02:51→21:33)
[2017-05-27 07:05] LABS: ABSOLUTE EOSINOPHILS # (AUTO) 0.2 10^3/uL (0.0-0.6); ABSOLUTE LYMPHOCYTES (AUTO) 1.2 10^3/uL (0.5-4.7); ABSOLUTE MONOCYTES (AUTO) 0.4 10^3/uL (0.1-1.4); ABSOLUTE NEUT (AUTO) 5.2 10^3/uL (1.7-8.2); BASOPHILS % (AUTO) 0.2 % (0-2); EOSINOPHILS % (AUTO) 3.1 % (0-6); HEMATOCRIT 25.9 % (37.9-51.0); HEMOGLOBIN 8.3 g/dL (13.5-17.0); LYMPHOCYTES % (AUTO) 16.6 % (13-45); MEAN CORPUSCULAR HEMOGLOBIN 24.8 pg (27.0-33.4); MEAN CORPUSCULAR HGB CONC 32.2 g/dL (32.0-36.0); MEAN CORPUSCULAR VOLUME 77 fl (80-97); MONOCYTES % (AUTO) 5.5 % (3-13); RED BLOOD COUNT 3.37 10^6/uL (4.35-5.55); RED CELL DISTRIBUTION WIDTH 20.8 % (11.5-14.0); SEGMENTED NEUTROPHILS % (AUTO) 74.6 % (42-78)
[2017-05-27 07:37] LABS: ANION GAP 9 (5-19); BLOOD UREA NITROGEN 50 mg/dL (7-20); CALCIUM 8.2 mg/dL (8.4-10.2); CARBON DIOXIDE 30 mmol/L (22-30); CHLORIDE 113 mmol/L (98-107); CREATININE RESULT 1.06 mg/dL (0.52-1.25); GLUCOSE 190 mg/dL (75-110); POTASSIUM 4.2 mmol/L (3.6-5.0); SODIUM 152.3 mmol/L (137-145)
--- NOTE | 2017-05-27 09:02 | PDOC PROGRESS REPORT ---
Subjective Progress Note for:: 05/27/17 Subjective:: Nursing states that pt stated that his throat was sore. Nursing states that pt has some coarse breath sounds. Physical Exam Vital Signs: Temp Pulse Resp BP Pulse Ox 97.7 F 79 18 133/77 H 93 05/27/17 08:14 05/27/17 08:14 05/27/17 08:14 05/27/17 08:14 05/27/17 08:14 Intake & Output 05/26/17 05/27/17 05/28/17 06:59 06:59 06:59 Intake Total 1393 3013 Output Total 8000 2049 Balance -6607 963 Weight 79.6 kg 81 kg General appearance: PRESENT: no acute distress, well-developed, well-nourished Head exam: PRESENT: atraumatic, normocephalic Eye exam: PRESENT: conjunctiva pink, EOMI, PERRLA. ABSENT: scleral icterus Ear exam: PRESENT: normal external ear exam Mouth exam: PRESENT: moist, tongue midline Neck exam: ABSENT: carotid bruit, JVD, lymphadenopathy, thyromegaly Respiratory exam: PRESENT: other - + coarse breath sound, + Fair air movement Cardiovascular exam: PRESENT: RRR. ABSENT: diastolic murmur, rubs, systolic murmur Pulses: PRESENT: normal dorsalis pedis pul Vascular exam: PRESENT: normal capillary refill GI/Abdominal exam: PRESENT: normal bowel sounds, soft. ABSENT: distended, guarding, mass, organolmegaly, rebound, tenderness Rectal exam: PRESENT: deferred Extremities exam: PRESENT: full ROM, other - +Left BKA. ABSENT: calf tenderness , clubbing, pedal edema Musculoskeletal exam: PRESENT: other - + left BKA Neurological exam: PRESENT: alert, altered, awake, oriented to person Psychiatric exam: PRESENT: appropriate affect, normal mood. ABSENT: homicidal ideation, suicidal ideation Skin exam: PRESENT: dry, intact, warm. ABSENT: cyanosis, rash Results Laboratory Results: 05/27/17 06:46 05/27/17 06:46 05/25/17 05/26/17 05/26/17 06:53 09:03 18:07 WBC 7.3 RBC 3.19 L Hgb 7.9 L Hct 24.4 L MCV 77 L MCH 24.9 L MCHC 32.5 RDW 20.7 H Plt Count 166 Seg Neutrophils % 72.2 Lymphocytes % 17.4 Monocytes % 6.5 Eosinophils % 3.4 Basophils % 0.5 Absolute Neutrophils 5.3 Absolute Lymphocytes 1.3 Absolute Monocytes 0.5 Absolute Eosinophils 0.2 Absolute Basophils 0.0 Sodium Potassium Chloride Carbon Dioxide Anion Gap BUN Creatinine Est GFR ( Amer) Est GFR (Non-Af Amer) Glucose Calcium Transferrin 131 L Blood Type B POSITIVE Antibody Screen NEGATIVE 05/27/17 05/27/17 06:46 06:46 WBC 7.0 RBC 3.37 L Hgb 8.3 L Hct 25.9 L MCV 77 L MCH 24.8 L MCHC 32.2 RDW 20.8 H Plt Count 167 Seg Neutrophils % 74.6 Lymphocytes % 16.6 Monocytes % 5.5 Eosinophils % 3.1 Basophils % 0.2 Absolute Neutrophils 5.2 Absolute Lymphocytes 1.2 Absolute Monocytes 0.4 Absolute Eosinophils 0.2 Absolute Basophils 0.0 Sodium 152.3 H Potassium 4.2 Chloride 113 H Carbon Dioxide 30 Anion Gap 9 BUN 50 H Creatinine 1.06 Est GFR ( Amer) > 60 Est GFR (Non-Af Amer) > 60 Glucose 190 H Calcium 8.2 L Transferrin Blood Type Antibody Screen Impressions: Renal Ultrasound 05/24/17 16:02 IMPRESSION: 1. No evidence of urinary obstruction. Mildly limited assessment of the left kidney. No hydronephrosis is detected, however. 2. Marked prostate enlargement. Assessment & Plan - Diagnosis (1) Acute cystitis Is this a current diagnosis for this admission?: Yes Plan: Acinetobacter Baumanni: Cefepime (2) Diastolic CHF Qualifiers: Congestive heart failure chronicity: acute on chronic Qualified Code(s): I50.33 - Acute on chronic diastolic (congestive) heart failure Is this a current diagnosis for this admission?: Yes Plan: EF 40%: Will give Lasix 40mg X 1 (3) Hypernatremia Is this a current diagnosis for this admission?: Yes Plan: Resolving. Will continue Free Water. (4) Acute renal insufficiency Is this a current diagnosis for this admission?: Yes Plan: Setting CKD 2: Will continue IVF. (5) Protein-calorie malnutrition, moderate Is this a current diagnosis for this admission?: Yes Plan: Continue tubefeeds. (6) HTN (hypertension) Qualifiers: Hypertension type: essential hypertension Qualified Code(s): I10 - Essential (primary) hypertension Is this a current diagnosis for this admission?: Yes Plan: Will continue to monitor. (7) History of left below knee amputation Is this a current diagnosis for this admission?: Yes Plan: Supportive care. - Time Time Spent with patient: 15-24 minutes
[2017-05-27] MEDS ORDERED: FUROSEMIDE 40 MG TABLET PO ONE (09:30)
[2017-05-27] MEDS: ASPIRIN 81 MG TABLET, CHEWABLE PEG SCH (09:52)
[2017-05-27] MEDS: CEFEPIME 1 GM/D5W RTU 1 GM/50 ML RTUPB IV SCH (09:53)
[2017-05-27] MEDS: ASCORBIC ACID 500 MG TABLET PEG SCH ×3 (09:53→20:49)
[2017-05-27] MEDS: FERROUS SULFATE 325 MG TABLET PO SCH ×3 (09:53→20:49)
[2017-05-27] MEDS: CLOPIDOGREL BISULFATE 75 MG TABLET PEG SCH (09:53)
[2017-05-27] MEDS: IRON SUCROSE COMPLEX INJ/PF 100 MG/5 ML SDV IV SCH (09:54)
[2017-05-27] MEDS: POLYETHYLENE GLYCOL 3350 POWDER 17 GM/1 PACKET PO SCH (09:54)
--- NOTE | 2017-05-27 11:20 | RADIOLOGY REPORT (SQ) ---
EXAM DESCRIPTION: CHEST PA/LAT COMPLETED DATE/TIME: 05/27/2017 11:02 am REASON FOR STUDY: shortness of breath COMPARISON: 07/17/2015 EXAM PARAMETERS: NUMBER OF VIEWS: two views TECHNIQUE: Digital Frontal and Lateral radiographic views of the chest acquired. RADIATION DOSE: NA LIMITATIONS: none FINDINGS: LUNGS AND PLEURA: No opacities, masses or pneumothorax. No pleural effusion. MEDIASTINUM AND HILAR STRUCTURES: No masses or contour abnormalities. HEART AND VASCULAR STRUCTURES: Heart normal size. No evidence for failure. BONES: No acute findings. HARDWARE: Pacemaker/defibrillator. OTHER: No other significant finding. IMPRESSION: NO SIGNIFICANT RADIOGRAPHIC FINDING IN THE CHEST. TECHNICAL DOCUMENTATION: JOB ID: [id number] [employer]- All Rights Reserved
[2017-05-27] MEDS: INSULIN LISPRO 100 UNIT/ML 3 ML VIAL SUBCUT PRN (14:37)
[2017-05-27] MEDS: HEPARIN SOD (PORCINE) 5,000 UNIT/ML 1 ML SYRINGE SUBCUT SCH ×2 (14:37→21:32)
[2017-05-27] MEDS ORDERED: PHENOL/SODIUM PHENOLATE 100 SPRAY/177 ML BOTTLE PO PRN (14:45)
[2017-05-28] MEDS: INSULIN LISPRO 100 UNIT/ML 3 ML VIAL SUBCUT PRN ×3 (01:30→18:33)
[2017-05-28] MEDS: HEPARIN SOD (PORCINE) 5,000 UNIT/ML 1 ML SYRINGE SUBCUT SCH ×3 (05:00→22:09)
[2017-05-28 05:24] LABS: ABSOLUTE EOSINOPHILS # (AUTO) 0.2 10^3/uL (0.0-0.6); ABSOLUTE LYMPHOCYTES (AUTO) 1.1 10^3/uL (0.5-4.7); ABSOLUTE MONOCYTES (AUTO) 0.3 10^3/uL (0.1-1.4); ABSOLUTE NEUT (AUTO) 3.5 10^3/uL (1.7-8.2); BASOPHILS % (AUTO) 0.3 % (0-2); HEMATOCRIT 26.7 % (37.9-51.0); HEMOGLOBIN 8.7 g/dL (13.5-17.0); HGB HCT DIFFERENCE -0.6; LYMPHOCYTES % (AUTO) 21.2 % (13-45); MEAN CORPUSCULAR HEMOGLOBIN 24.8 pg (27.0-33.4); MEAN CORPUSCULAR HGB CONC 32.7 g/dL (32.0-36.0); MEAN CORPUSCULAR VOLUME 76 fl (80-97); MONOCYTES % (AUTO) 6.2 % (3-13); RED BLOOD COUNT 3.52 10^6/uL (4.35-5.55); RED CELL DISTRIBUTION WIDTH 21.3 % (11.5-14.0); SEGMENTED NEUTROPHILS % (AUTO) 69.3 % (42-78)
[2017-05-28 05:42] LABS: ANION GAP 9 (5-19); BLOOD UREA NITROGEN 41 mg/dL (7-20); CALCIUM 8.4 mg/dL (8.4-10.2); CARBON DIOXIDE 32 mmol/L (22-30); CHLORIDE 111 mmol/L (98-107); CREATININE RESULT 0.97 mg/dL (0.52-1.25); GLUCOSE 158 mg/dL (75-110); MAGNESIUM 2.3 mg/dL (1.6-2.3); POTASSIUM 3.8 mmol/L (3.6-5.0); SODIUM 151.9 mmol/L (137-145)
--- NOTE | 2017-05-28 08:21 | PDOC PROGRESS REPORT ---
Subjective Progress Note for:: 05/28/17 Subjective:: Nursing states that pt is doing well. Pt voices no issues Physical Exam Vital Signs: Temp Pulse Resp BP Pulse Ox 98.3 F 81 18 115/68 100 05/28/17 04:18 05/28/17 04:18 05/28/17 04:18 05/28/17 04:18 05/28/17 04:18 Intake & Output 05/27/17 05/28/17 05/29/17 06:59 06:59 06:59 Intake Total 3013 1719 Output Total 2050 1500 Balance 963 219 Weight 81 kg 81.6 kg General appearance: PRESENT: no acute distress, well-developed, well-nourished Head exam: PRESENT: atraumatic, normocephalic Eye exam: PRESENT: conjunctiva pink, EOMI, PERRLA. ABSENT: scleral icterus Ear exam: PRESENT: normal external ear exam Mouth exam: PRESENT: moist, tongue midline Neck exam: ABSENT: carotid bruit, JVD, lymphadenopathy, thyromegaly Respiratory exam: PRESENT: clear to auscultation joaquin, other - + upper airway noise. ABSENT: rales, rhonchi, wheezes Cardiovascular exam: PRESENT: RRR. ABSENT: diastolic murmur, rubs, systolic murmur Pulses: PRESENT: normal dorsalis pedis pul Vascular exam: PRESENT: normal capillary refill GI/Abdominal exam: PRESENT: normal bowel sounds, soft. ABSENT: distended, guarding, mass, organolmegaly, rebound, tenderness Rectal exam: PRESENT: deferred Extremities exam: PRESENT: full ROM. ABSENT: calf tenderness, clubbing, pedal edema Neurological exam: PRESENT: alert, awake, oriented to person, CN II-XII grossly intact. ABSENT: motor sensory deficit Psychiatric exam: PRESENT: appropriate affect, normal mood. ABSENT: homicidal ideation, suicidal ideation Skin exam: PRESENT: dry, intact, warm. ABSENT: cyanosis, rash Results Laboratory Results: 05/28/17 05:12 05/28/17 05:12 05/28/17 05/28/17 05:12 05:12 WBC 5.0 RBC 3.52 L Hgb 8.7 L Hct 26.7 L MCV 76 L MCH 24.8 L MCHC 32.7 RDW 21.3 H Plt Count 177 Seg Neutrophils % 69.3 Lymphocytes % 21.2 Monocytes % 6.2 Eosinophils % 3.0 Basophils % 0.3 Absolute Neutrophils 3.5 Absolute Lymphocytes 1.1 Absolute Monocytes 0.3 Absolute Eosinophils 0.2 Absolute Basophils 0.0 Sodium 151.9 H Potassium 3.8 Chloride 111 H Carbon Dioxide 32 H Anion Gap 9 BUN 41 H Creatinine 0.97 Est GFR ( Amer) > 60 Est GFR (Non-Af Amer) > 60 Glucose 158 H Calcium 8.4 Magnesium 2.3 Impressions: Renal Ultrasound 05/24/17 16:02 IMPRESSION: 1. No evidence of urinary obstruction. Mildly limited assessment of the left kidney. No hydronephrosis is detected, however. 2. Marked prostate enlargement. Chest X-Ray 05/27/17 00:00 IMPRESSION: NO SIGNIFICANT RADIOGRAPHIC FINDING IN THE CHEST. Assessment & Plan - Diagnosis (1) Acute cystitis Is this a current diagnosis for this admission?: Yes Plan: Acinetobacter Baumanni: Cefepime (2) Diastolic CHF Qualifiers: Congestive heart failure chronicity: acute on chronic Qualified Code(s): I50.33 - Acute on chronic diastolic (congestive) heart failure Is this a current diagnosis for this admission?: Yes Plan: EF 40%: Resolved. Pt given lasix yesterday. (3) Hypernatremia Is this a current diagnosis for this admission?: Yes Plan: Resolving. Will continue Free Water. (4) Acute renal insufficiency Is this a current diagnosis for this admission?: Yes Plan: Setting CKD 2: Will continue Free Water. (5) Protein-calorie malnutrition, moderate Is this a current diagnosis for this admission?: Yes Plan: Continue tubefeeds. (6) HTN (hypertension) Qualifiers: Hypertension type: essential hypertension Qualified Code(s): I10 - Essential (primary) hypertension Is this a current diagnosis for this admission?: Yes Plan: Will continue to monitor. (7) History of left below knee amputation Is this a current diagnosis for this admission?: Yes Plan: Supportive care. - Time Time Spent with patient: Less than 15 minutes
[2017-05-28] MEDS: CLOPIDOGREL BISULFATE 75 MG TABLET PEG SCH (09:50)
[2017-05-28] MEDS: CEFEPIME 1 GM/D5W RTU 1 GM/50 ML RTUPB IV SCH (09:50)
[2017-05-28] MEDS: ASPIRIN 81 MG TABLET, CHEWABLE PEG SCH (09:50)
[2017-05-28] MEDS: POLYETHYLENE GLYCOL 3350 POWDER 17 GM/1 PACKET PO SCH (09:50)
[2017-05-28] MEDS: IRON SUCROSE COMPLEX INJ/PF 100 MG/5 ML SDV IV SCH (09:50)
[2017-05-28] MEDS: CARVEDILOL 12.5 MG TABLET PO SCH ×2 (09:50→22:09)
[2017-05-28] MEDS: FERROUS SULFATE 325 MG TABLET PO SCH ×3 (09:50→17:32)
[2017-05-28] MEDS: ASCORBIC ACID 500 MG TABLET PEG SCH ×3 (09:50→17:32)
[2017-05-29] MEDS: HEPARIN SOD (PORCINE) 5,000 UNIT/ML 1 ML SYRINGE SUBCUT SCH ×3 (05:31→21:15)
[2017-05-29] MEDS: FERROUS SULFATE 325 MG TABLET PO SCH ×3 (08:56→17:53)
[2017-05-29] MEDS: INSULIN LISPRO 100 UNIT/ML 3 ML VIAL SUBCUT PRN ×2 (08:56→17:57)
[2017-05-29 09:07] LABS: ANION GAP 7 (5-19); BLOOD UREA NITROGEN 34 mg/dL (7-20); CALCIUM 8.4 mg/dL (8.4-10.2); CARBON DIOXIDE 33 mmol/L (22-30); CHLORIDE 108 mmol/L (98-107); CREATININE RESULT 0.88 mg/dL (0.52-1.25); GLUCOSE 184 mg/dL (75-110); POTASSIUM 3.9 mmol/L (3.6-5.0); SODIUM 148.4 mmol/L (137-145)
[2017-05-29] MEDS: IRON SUCROSE COMPLEX INJ/PF 100 MG/5 ML SDV IV SCH (11:54)
[2017-05-29] MEDS: POLYETHYLENE GLYCOL 3350 POWDER 17 GM/1 PACKET PO SCH (11:54)
[2017-05-29] MEDS: CARVEDILOL 12.5 MG TABLET PO SCH ×2 (11:55→21:15)
[2017-05-29] MEDS: ASPIRIN 81 MG TABLET, CHEWABLE PEG SCH (11:55)
[2017-05-29] MEDS: CEFEPIME 1 GM/D5W RTU 1 GM/50 ML RTUPB IV SCH (11:55)
[2017-05-29] MEDS: CLOPIDOGREL BISULFATE 75 MG TABLET PEG SCH (11:55)
[2017-05-29] MEDS: ASCORBIC ACID 500 MG TABLET PEG SCH ×3 (11:55→17:53)
--- NOTE | 2017-05-29 13:20 | PDOC PROGRESS REPORT ---
Subjective Progress Note for:: 05/29/17 Subjective:: No new issues. Physical Exam Vital Signs: Temp Pulse Resp BP Pulse Ox 98.3 F 68 17 128/64 H 98 05/29/17 07:43 05/29/17 07:43 05/29/17 07:43 05/29/17 07:43 05/29/17 07:43 Intake & Output 05/28/17 05/29/17 05/30/17 06:59 06:59 06:59 Intake Total 1719 1942 Output Total 1500 1800 Balance 219 142 Weight 81.6 kg 80.6 kg General appearance: PRESENT: no acute distress, well-developed, well-nourished Head exam: PRESENT: atraumatic, normocephalic Eye exam: PRESENT: conjunctiva pink, EOMI, PERRLA. ABSENT: scleral icterus Ear exam: PRESENT: normal external ear exam Mouth exam: PRESENT: moist, tongue midline Neck exam: ABSENT: carotid bruit, JVD, lymphadenopathy, thyromegaly Respiratory exam: PRESENT: clear to auscultation joaquin. ABSENT: rales, rhonchi, wheezes Cardiovascular exam: PRESENT: RRR. ABSENT: diastolic murmur, rubs, systolic murmur Pulses: PRESENT: normal dorsalis pedis pul Vascular exam: PRESENT: normal capillary refill GI/Abdominal exam: PRESENT: normal bowel sounds, soft. ABSENT: distended, guarding, mass, organolmegaly, rebound, tenderness Rectal exam: PRESENT: deferred Extremities exam: PRESENT: full ROM. ABSENT: calf tenderness, clubbing, pedal edema Neurological exam: PRESENT: alert, awake, oriented to person, oriented to place , oriented to time, oriented to situation, CN II-XII grossly intact. ABSENT: motor sensory deficit Skin exam: PRESENT: dry, intact, warm. ABSENT: cyanosis, rash Results Laboratory Results: 05/28/17 05:12 05/29/17 08:39 05/29/17 08:39 Sodium 148.4 H Potassium 3.9 Chloride 108 H Carbon Dioxide 33 H Anion Gap 7 BUN 34 H Creatinine 0.88 Est GFR ( Amer) > 60 Est GFR (Non-Af Amer) > 60 Glucose 184 H Calcium 8.4 Impressions: Renal Ultrasound 05/24/17 16:02 IMPRESSION: 1. No evidence of urinary obstruction. Mildly limited assessment of the left kidney. No hydronephrosis is detected, however. 2. Marked prostate enlargement. Chest X-Ray 05/27/17 00:00 IMPRESSION: NO SIGNIFICANT RADIOGRAPHIC FINDING IN THE CHEST. Assessment & Plan - Diagnosis (1) Acute cystitis Is this a current diagnosis for this admission?: Yes Plan: Acinetobacter Baumanni: Cefepime (2) Diastolic CHF Qualifiers: Congestive heart failure chronicity: acute on chronic Qualified Code(s): I50.33 - Acute on chronic diastolic (congestive) heart failure Is this a current diagnosis for this admission?: Yes Plan: EF 40%: Resolved. (3) Hypernatremia Is this a current diagnosis for this admission?: Yes Plan: Resolving. Will continue Free Water. (4) Acute renal insufficiency Is this a current diagnosis for this admission?: Yes Plan: Setting CKD 2: Will continue Free Water. (5) Protein-calorie malnutrition, moderate Is this a current diagnosis for this admission?: Yes Plan: Continue tubefeeds. (6) HTN (hypertension) Qualifiers: Hypertension type: essential hypertension Qualified Code(s): I10 - Essential (primary) hypertension Is this a current diagnosis for this admission?: Yes Plan: Will continue to monitor. (7) History of left below knee amputation Is this a current diagnosis for this admission?: Yes Plan: Supportive care. (8) Hyperglycemia due to type 2 diabetes mellitus Is this a current diagnosis for this admission?: Yes Plan: Will place on Lantus 20 units Qdaily. (9) Iron deficiency anemia Is this a current diagnosis for this admission?: Yes Plan: Will give Venofer. Will check occult stool. (10) DVT prophylaxis Is this a current diagnosis for this admission?: Yes Plan: heparin - Time Time Spent with patient: Less than 15 minutes
[2017-05-30] MEDS: HEPARIN SOD (PORCINE) 5,000 UNIT/ML 1 ML SYRINGE SUBCUT SCH ×3 (05:51→23:47)
[2017-05-30 06:27] LABS: ABSOLUTE EOSINOPHILS # (AUTO) 0.1 10^3/uL (0.0-0.6); ABSOLUTE LYMPHOCYTES (AUTO) 1.1 10^3/uL (0.5-4.7); ABSOLUTE MONOCYTES (AUTO) 0.3 10^3/uL (0.1-1.4); ABSOLUTE NEUT (AUTO) 3.1 10^3/uL (1.7-8.2); BASOPHILS % (AUTO) 0.3 % (0-2); EOSINOPHILS % (AUTO) 2.9 % (0-6); HEMATOCRIT 26.2 % (37.9-51.0); HEMOGLOBIN 8.4 g/dL (13.5-17.0); LYMPHOCYTES % (AUTO) 23.6 % (13-45); MEAN CORPUSCULAR HEMOGLOBIN 24.6 pg (27.0-33.4); MEAN CORPUSCULAR HGB CONC 31.9 g/dL (32.0-36.0); MEAN CORPUSCULAR VOLUME 77 fl (80-97); MONOCYTES % (AUTO) 5.8 % (3-13); RED BLOOD COUNT 3.41 10^6/uL (4.35-5.55); RED CELL DISTRIBUTION WIDTH 21.8 % (11.5-14.0); SEGMENTED NEUTROPHILS % (AUTO) 67.4 % (42-78); WHITE BLOOD COUNT 4.6 10^3/uL (4.0-10.5)
[2017-05-30] MEDS: INSULIN LISPRO 100 UNIT/ML 3 ML VIAL SUBCUT PRN (06:57)
[2017-05-30 07:09] LABS: ANION GAP 9 (5-19); BLOOD UREA NITROGEN 31 mg/dL (7-20); CALCIUM 8.4 mg/dL (8.4-10.2); CARBON DIOXIDE 32 mmol/L (22-30); CHLORIDE 107 mmol/L (98-107); CREATININE RESULT 0.79 mg/dL (0.52-1.25); GLUCOSE 173 mg/dL (75-110); POTASSIUM 4.2 mmol/L (3.6-5.0); SODIUM 147.7 mmol/L (137-145)
[2017-05-30] MEDS: FERROUS SULFATE 325 MG TABLET PO SCH ×3 (08:40→17:49)
[2017-05-30] MEDS ORDERED: INSULIN GLARGINE,HUM.REC.ANLOG 1,000 UNIT/10 ML UNIT SUBCUT SCH (10:00)
[2017-05-30] MEDS: POLYETHYLENE GLYCOL 3350 POWDER 17 GM/1 PACKET PO SCH (10:54)
[2017-05-30] MEDS: IRON SUCROSE COMPLEX INJ/PF 100 MG/5 ML SDV IV SCH (10:54)
[2017-05-30] MEDS: CARVEDILOL 12.5 MG TABLET PO SCH ×2 (10:54→23:48)
[2017-05-30] MEDS: CLOPIDOGREL BISULFATE 75 MG TABLET PEG SCH (10:54)
[2017-05-30] MEDS: ASPIRIN 81 MG TABLET, CHEWABLE PEG SCH (10:55)
[2017-05-30] MEDS: ASCORBIC ACID 500 MG TABLET PEG SCH ×3 (10:55→17:48)
--- NOTE | 2017-05-30 14:42 | PDOC PROGRESS REPORT ---
Subjective Progress Note for:: 05/30/17 Subjective:: No new issues Physical Exam Vital Signs: Temp Pulse Resp BP Pulse Ox 98.5 F 73 18 133/63 H 97 05/30/17 12:59 05/30/17 12:59 05/30/17 12:59 05/30/17 12:59 05/30/17 12:59 Intake & Output 05/29/17 05/30/17 05/31/17 06:59 06:59 06:59 Intake Total 1942 5489 2210 Output Total 1800 1700 Balance 142 3789 2210 Weight 80.6 kg 81.2 kg General appearance: PRESENT: no acute distress, well-developed, well-nourished Head exam: PRESENT: atraumatic, normocephalic Eye exam: PRESENT: conjunctiva pink, EOMI. ABSENT: scleral icterus Ear exam: PRESENT: normal external ear exam Mouth exam: PRESENT: moist, tongue midline Neck exam: ABSENT: carotid bruit, JVD, lymphadenopathy, thyromegaly Respiratory exam: PRESENT: clear to auscultation joaquin. ABSENT: rales, rhonchi, wheezes Cardiovascular exam: PRESENT: RRR. ABSENT: diastolic murmur, rubs, systolic murmur Pulses: PRESENT: normal dorsalis pedis pul Vascular exam: PRESENT: normal capillary refill GI/Abdominal exam: PRESENT: normal bowel sounds, soft, other - feeding tube in place.. ABSENT: distended, guarding, mass, organolmegaly, rebound, tenderness Rectal exam: PRESENT: deferred Extremities exam: PRESENT: full ROM. ABSENT: calf tenderness, clubbing, pedal edema Neurological exam: PRESENT: alert, altered, awake, oriented to person. ABSENT: motor sensory deficit Psychiatric exam: PRESENT: appropriate affect, normal mood. ABSENT: homicidal ideation, suicidal ideation Skin exam: PRESENT: dry, intact, warm. ABSENT: cyanosis, rash Results Laboratory Results: 05/30/17 06:15 05/30/17 06:15 05/30/17 05/30/17 06:15 06:15 WBC 4.6 RBC 3.41 L Hgb 8.4 L Hct 26.2 L MCV 77 L MCH 24.6 L MCHC 31.9 L RDW 21.8 H Plt Count 187 Seg Neutrophils % 67.4 Lymphocytes % 23.6 Monocytes % 5.8 Eosinophils % 2.9 Basophils % 0.3 Absolute Neutrophils 3.1 Absolute Lymphocytes 1.1 Absolute Monocytes 0.3 Absolute Eosinophils 0.1 Absolute Basophils 0.0 Sodium 147.7 H Potassium 4.2 Chloride 107 Carbon Dioxide 32 H Anion Gap 9 BUN 31 H Creatinine 0.79 Est GFR ( Amer) > 60 Est GFR (Non-Af Amer) > 60 Glucose 173 H Calcium 8.4 Impressions: Renal Ultrasound 05/24/17 16:02 IMPRESSION: 1. No evidence of urinary obstruction. Mildly limited assessment of the left kidney. No hydronephrosis is detected, however. 2. Marked prostate enlargement. Chest X-Ray 05/27/17 00:00 IMPRESSION: NO SIGNIFICANT RADIOGRAPHIC FINDING IN THE CHEST. Assessment & Plan - Diagnosis (1) Acute cystitis Is this a current diagnosis for this admission?: Yes Plan: Acinetobacter Baumanni: Completed treatment with Cefepime. (2) Diastolic CHF Qualifiers: Congestive heart failure chronicity: acute on chronic Qualified Code(s): I50.33 - Acute on chronic diastolic (congestive) heart failure Is this a current diagnosis for this admission?: Yes Plan: EF 40%: Resolved. (3) Hypernatremia Is this a current diagnosis for this admission?: Yes Plan: Resolving. Will continue Free Water. (4) Acute renal insufficiency Is this a current diagnosis for this admission?: Yes Plan: Setting CKD 2: Will continue Free Water. (5) Protein-calorie malnutrition, moderate Is this a current diagnosis for this admission?: Yes Plan: Continue tubefeeds. (6) HTN (hypertension) Qualifiers: Hypertension type: essential hypertension Qualified Code(s): I10 - Essential (primary) hypertension Is this a current diagnosis for this admission?: Yes Plan: Will continue to monitor. (7) History of left below knee amputation Is this a current diagnosis for this admission?: Yes Plan: Supportive care. (8) Hyperglycemia due to type 2 diabetes mellitus Is this a current diagnosis for this admission?: Yes Plan: Will place on Lantus 30 units Qdaily. (9) Iron deficiency anemia Is this a current diagnosis for this admission?: Yes Plan: Will give Venofer for total of 5 days and PO. Occult stool negative. (10) DVT prophylaxis Is this a current diagnosis for this admission?: Yes Plan: heparin - Time Time Spent with patient: 15-24 minutes
[2017-05-30] MEDS: INSULIN GLARGINE,HUM.REC.ANLOG 1,000 UNIT/10 ML UNIT SUBCUT SCH (16:15)
[2017-05-31] MEDS: HEPARIN SOD (PORCINE) 5,000 UNIT/ML 1 ML SYRINGE SUBCUT SCH ×2 (06:17→14:16)
[2017-05-31 07:52] LABS: ANION GAP 8 (5-19); BLOOD UREA NITROGEN 31 mg/dL (7-20); CALCIUM 8.4 mg/dL (8.4-10.2); CARBON DIOXIDE 29 mmol/L (22-30); CHLORIDE 107 mmol/L (98-107); CREATININE RESULT 0.78 mg/dL (0.52-1.25); GLUCOSE 64 mg/dL (75-110); POTASSIUM 4.4 mmol/L (3.6-5.0); SODIUM 143.7 mmol/L (137-145)
[2017-05-31] MEDS: FERROUS SULFATE 325 MG TABLET PO SCH ×2 (08:36→12:00)
[2017-05-31 09:24] LABS: HEMATOCRIT 25.6 % (37.9-51.0); HEMOGLOBIN 8.4 g/dL (13.5-17.0); HGB HCT DIFFERENCE -0.4; MEAN CORPUSCULAR HEMOGLOBIN 25.4 pg (27.0-33.4); MEAN CORPUSCULAR HGB CONC 32.9 g/dL (32.0-36.0); MEAN CORPUSCULAR VOLUME 77 fl (80-97); RED BLOOD COUNT 3.31 10^6/uL (4.35-5.55); RED CELL DISTRIBUTION WIDTH 22.1 % (11.5-14.0); WHITE BLOOD COUNT 6.2 10^3/uL (4.0-10.5)
[2017-05-31 09:45] LABS: BASOPHILS % (MANUAL) 0 % (0-2); EOSINOPHILS % (MANUAL) 6 % (0-6); LYMPHOCYTES % (MANUAL) 28 % (13-45); TOTAL CELLS COUNTED 100
[2017-05-31 09:46] LABS: HYPOCHROMASIA SLIGHT
[2017-05-31 09:47] LABS: ANISOCYTOSIS 2+; MICROCYTOSIS 1+; PLATELET CLUMPS PRESENT; POLYCHROMASIA SLIGHT
[2017-05-31] MEDS: CARVEDILOL 12.5 MG TABLET PO SCH (11:15)
[2017-05-31] MEDS: ASPIRIN 81 MG TABLET, CHEWABLE PEG SCH (11:15)
[2017-05-31] MEDS: CLOPIDOGREL BISULFATE 75 MG TABLET PEG SCH (11:15)
[2017-05-31] MEDS: ASCORBIC ACID 500 MG TABLET PEG SCH ×2 (11:15→14:36)
[2017-05-31] MEDS: IRON SUCROSE COMPLEX INJ/PF 100 MG/5 ML SDV IV SCH (11:16)
[2017-05-31] MEDS: POLYETHYLENE GLYCOL 3350 POWDER 17 GM/1 PACKET PO SCH (11:16)
[2017-05-31] MEDS: INSULIN GLARGINE,HUM.REC.ANLOG 1,000 UNIT/10 ML UNIT SUBCUT SCH (12:48)
--- NOTE | 2017-05-31 14:41 | PDOC DISCHARGE SUMMARY ---
General - Admit/Disc Date/PCP Admission Date/Primary Care Provider: 05/22/17 19:20 CHAD HILLIARD Discharge Date: 05/31/17 - Discharge Diagnosis (1) Acute cystitis Is this a current diagnosis for this admission?: Yes Summary: Secondary to Acinetobacter Baumanni: Pt was placed on Cefepime and completed treatment while in hospital. (2) Diastolic CHF Is this a current diagnosis for this admission?: Yes Summary: EF 40%: Stable. (3) Hypernatremia Is this a current diagnosis for this admission?: Yes Summary: Will continue Free water at 300 cc Q6 hours. (4) Acute renal insufficiency Is this a current diagnosis for this admission?: Yes Summary: Secondary to Dehydration: Resolved with increase free water. (5) Protein-calorie malnutrition, moderate Is this a current diagnosis for this admission?: Yes Summary: Will continue tubefeeds with Glucerna 1.2 at 80cc/hr (6) HTN (hypertension) Is this a current diagnosis for this admission?: Yes Summary: Losartan discontinued and Beta malu dose decreased. (7) History of left below knee amputation Is this a current diagnosis for this admission?: Yes Summary: supportive care. (8) Hyperglycemia due to type 2 diabetes mellitus Is this a current diagnosis for this admission?: Yes Summary: continue SSI. (9) Iron deficiency anemia Is this a current diagnosis for this admission?: Yes Summary: Pt was placed on Venofer for 5 days. Pt placed on oral iron replacement. - Additional Information Resuscitation Status: Do Not Resuscitate Discharge Diet: Tube Feeding (Comments) - Free Water 300cc Q6hrs and tubefeed Glucerna 1.2 at 80 cc/hr Discharge Activity: Bedrest Home Medications: Acetaminophen [Tylenol Arthritis 650 mg Tablet] 650 mg PEG Q6HP PRN 05/22/17 Ascorbic Acid [Vitamin C 500 mg Tablet] 500 mg PEG TID 05/22/17 Aspirin [Aspirin 81 mg Chewable Tablet] 81 mg PEG DAILY 05/22/17 Atorvastatin Calcium [Lipitor 10 mg Tablet] 10 mg PEG QHS 05/22/17 Clopidogrel Bisulfate [Plavix 75 mg Tablet] 75 mg PEG DAILY 05/22/17 Doxazosin Mesylate [Cardura 2 mg Tablet] 2 mg PEG QHS 05/22/17 Ferrous Sulfate [Ferrous Sulfate Liquid 300 mg/5 ml Udcup] 5 ml PEG BID Finasteride [Proscar 5 mg Tablet] 5 mg PEG DAILY 05/22/17 Folic Acid [Folvite 1 mg Tablet] 1 mg PEG DAILY 05/22/17 Insulin Lispro [Humalog Insulin (Lispro) 100 unit/mL] 0 units SQ .SLIDING SCALE 05/22/17 Lansoprazole [Prevacid 30 mg Odt Tablet] 30 mg PEG BID 05/22/17 Latanoprost [Xalatan 0.005% Oph Soln 2.5 ml] 1 drop OU QHS 05/22/17 Multivit-Minerals/Ferrous Gluc [Certa Benigno Liquid] 15 ml PEG DAILY 05/22/17 Polyethylene Glycol 3350 [Miralax Powder 17 gm/Packet] 17 gm PEG DAILY 05/22/17 Sennosides/Docusate 8.6-50 mg [Senna Plus Tablet] 1 tab PEG BIDP PRN 05/22/17 Ascorbic Acid [Vitamin C 500 mg Tablet] 500 mg PEG TID tablet 05/31/17 Aspirin [Aspirin 81 mg Chewable Tablet] 81 mg PEG DAILY tab.chew 05/31/17 Carvedilol [Coreg 12.5 mg Tablet] 12.5 mg PO Q12 tablet 05/31/17 Clopidogrel Bisulfate [Plavix 75 mg Tablet] 75 mg PEG DAILY tablet 05/31/17 Insulin Lispro [Humalog Insulin (Lispro) 100 unit/mL] 0 - 12 unit SUBCUT Q6HP PRN unit 05/31/17 Ipratropium/Albuterol Sulfate [Duoneb 3 ml Ampul] 3 ml NEB RTQ6HP PRN vial.neb 05/31/17 Phenol/Sodium Phenolate [Chloraseptic Sore Throat Sharps 177 ml] 2 spray PO Q6HP PRN bottle 05/31/17 Polyethylene Glycol 3350 [Miralax Powder 17 gm/Packet] 17 gm PO DAILY powd.pack 05/31/17 History of Present Illness Patient complains of: Altered Mental Status History of Present Illness: SEUN TOTH is a 76 year old male presented to the hospital due to altered mental status. Pt was found to have a sodium of 169 and acute renal failure. Pt was placed on IVF and free water. Pt was found to have a UTI. Pt was given IVF and placed on Cefepime. Pt was also found to have iron deficiency anemia. Pt was placed on Venofer and then transitioned to PO iron. Hospital Course Hospital Course: SEUN TOTH is a 76 year old male presented to the hospital due to altered mental status. Pt was found to have a sodium of 169 and acute renal failure. Pt was placed on IVF and free water. Pt was found to have a UTI. Pt was given IVF and placed on Cefepime. Pt was also found to have iron deficiency anemia. Pt was placed on Venofer and then transitioned to PO iron Physical Exam Vital Signs: Temp Pulse Resp BP Pulse Ox 97.8 F 82 16 112/65 90 L 05/31/17 12:22 05/31/17 12:22 05/31/17 12:22 05/31/17 12:22 05/31/17 12:22 Intake & Output 05/30/17 05/31/17 06/01/17 06:59 06:59 06:59 Intake Total 5489 3922 926 Output Total 1700 1900 400 Balance 3789 2022 526 Weight 81.2 kg 81.7 kg General appearance: PRESENT: no acute distress, well-developed, well-nourished Head exam: PRESENT: atraumatic, normocephalic Eye exam: PRESENT: conjunctiva pink, EOMI. ABSENT: scleral icterus Ear exam: PRESENT: normal external ear exam Mouth exam: PRESENT: moist, tongue midline Neck exam: ABSENT: carotid bruit, JVD, lymphadenopathy, thyromegaly Respiratory exam: PRESENT: other - + upper airway noise. Cardiovascular exam: PRESENT: RRR. ABSENT: diastolic murmur, rubs, systolic murmur Pulses: PRESENT: normal dorsalis pedis pul Vascular exam: PRESENT: normal capillary refill GI/Abdominal exam: PRESENT: normal bowel sounds, soft. ABSENT: distended, guarding, mass, organolmegaly, rebound, tenderness Rectal exam: PRESENT: deferred Extremities exam: PRESENT: full ROM. ABSENT: calf tenderness, clubbing, pedal edema Musculoskeletal exam: PRESENT: other - +left BKA. Neurological exam: PRESENT: alert, awake, oriented to person Psychiatric exam: PRESENT: agitated Skin exam: PRESENT: dry, intact, warm. ABSENT: cyanosis, rash Results Laboratory Results: 05/31/17 08:54 05/31/17 06:45 05/31/17 05/31/17 06:45 08:54 WBC 6.2 RBC 3.31 L Hgb 8.4 L Hct 25.6 L MCV 77 L MCH 25.4 L MCHC 32.9 RDW 22.1 H Plt Count 158 Seg Neutrophils % Not Reportable Lymphocytes % Not Reportable Monocytes % Not Reportable Eosinophils % Not Reportable Basophils % Not Reportable Absolute Neutrophils Not Reportable Absolute Lymphocytes Not Reportable Absolute Monocytes Not Reportable Absolute Eosinophils Not Reportable Absolute Basophils Not Reportable Sodium 143.7 Potassium 4.4 Chloride 107 Carbon Dioxide 29 Anion Gap 8 BUN 31 H Creatinine 0.78 Est GFR ( Amer) > 60 Est GFR (Non-Af Amer) > 60 Glucose 64 L Calcium 8.4 Impressions: Renal Ultrasound 05/24/17 16:02 IMPRESSION: 1. No evidence of urinary obstruction. Mildly limited assessment of the left kidney. No hydronephrosis is detected, however. 2. Marked prostate enlargement. Chest X-Ray 05/27/17 00:00 IMPRESSION: NO SIGNIFICANT RADIOGRAPHIC FINDING IN THE CHEST. Plan Time Spent: Greater than 30 Minutes
[2017-05-31 16:17] VITALS: BP 118/65
[2017-06-01] MEDS ORDERED: INSULIN GLARGINE,HUM.REC.ANLOG 300 UNIT/3 ML INSULN.PEN SUBCUT SCH (10:00)
== END 2017-05-31 16:48 | DRG 640 ==
LOC: ER 15:34 → EH 19:20 → UNDOADMIN 19:24 → 3W 21:08
PROVIDERS: ADMIT Internal Medicine; ATTEND Internal Medicine
DX: E87.0 Hyperosmolality and hypernatremia (principal); I50.33 Acute on chronic diastolic (congestive) heart failure; N30.00 Acute cystitis without hematuria; E44.0 Moderate protein-calorie malnutrition; F03.91 Unspecified dementia, unspecified severity, with behavioral disturbance; I13.0 Hypertensive heart and chronic kidney disease with heart failure and stage 1 through stage 4 chronic kidney disease, or unspecified chronic kidney disease; N18.2 Chronic kidney disease, stage 2 (mild); E11.22 Type 2 diabetes mellitus with diabetic chronic kidney disease; B96.89 Other specified bacterial agents as the cause of diseases classified elsewhere; E11.65 Type 2 diabetes mellitus with hyperglycemia; N28.9 Disorder of kidney and ureter, unspecified; Z68.21 Body mass index [BMI] 21.0-21.9, adult; D50.9 Iron deficiency anemia, unspecified; I25.10 Atherosclerotic heart disease of native coronary artery without angina pectoris; Z95.5 Presence of coronary angioplasty implant and graft; K21.9 Gastro-esophageal reflux disease without esophagitis; M19.90 Unspecified osteoarthritis, unspecified site; F32.9 Major depressive disorder, single episode, unspecified; Z79.02 Long term (current) use of antithrombotics/antiplatelets; Z79.82 Long term (current) use of aspirin; Z79.4 Long term (current) use of insulin; Z79.899 Other long term (current) drug therapy; Z66 Do not resuscitate; Z93.1 Gastrostomy status; Z78.1 Physical restraint status; Z95.810 Presence of automatic (implantable) cardiac defibrillator; Z87.891 Personal history of nicotine dependence; Z86.73 Personal history of transient ischemic attack (TIA), and cerebral infarction without residual deficits; Z89.512 Acquired absence of left leg below knee
CPT/HCPCS: 36415; 36430; 71020; 76775; 80048; 80053; 81001; 82271; 82550; 82607; 82728; 82746; 82962; 83540; 83550; 83735; 84100; 84466; 85025; 85045; 86850; 86900; 86901; 86920; 87070; 87086; 87088; 87186; 93005; 93010; 99285; J0692; J0696; J1644; J1756; J1815; J2060; J3490; J7060; P9016

== ENCOUNTER 2017-07-09 01:17 | Inpatient (IN) | payer MEDICARE, MEDICAID ==
--- NOTE | 2017-07-09 01:42 | ER Document Report ---
ED General - General Chief Complaint: Blood in Catheter Stated Complaint: POSSIBLE BLOOD IN URINE Time Seen by Provider: 07/09/17 01:28 Notes: Patient is a 76-year-old male was sent from a half-way to concern for possible altered mental status but mainly for blood in Babb catheter. Patient has previous history of stroke as well as a below the left knee amputation. He has a feeding tube and he does have a indwelling Babb catheter. He is on Plavix. No recent fevers. He does have a history of recurrent UTIs. He was admitted to the hospital in May for UTI and renal failure. The patient is able answer my questions. When asked him how he feels this is "fine. He denies any pain. Denies feeling nauseous. When I ask him if he has any concerns he says "no". TRAVEL OUTSIDE OF THE [place] IN LAST 30 DAYS: No - Related Data Allergies/Adverse Reactions: No Known Allergies Allergy (Verified 02/22/17 11:56) Past Medical History - Social History Smoking Status: Never Smoker Frequency of alcohol use: None Drug Abuse: None Family History: Reviewed & Not Pertinent, Other - Unobtainable - Past Medical History Cardiac Medical History: Reports: Hx Congestive Heart Failure, Hx Coronary Artery Disease - stent x 1, Hx Heart Attack - 2003, Hx Hypercholesterolemia, Hx Hypertension, Hx Peripheral Vascular Disease Pulmonary Medical History: Reports: Hx Asthma - as child Denies: Hx Bronchitis, Hx COPD, Hx Pneumonia, Hx Tuberculosis Neurological Medical History: Denies: Hx Seizures Endocrine Medical History: Reports: Hx Diabetes Mellitus Type 2 Renal/ Medical History: Reports: Hx Benign Prostatic Hyperplasia. Denies: Hx Peritoneal Dialysis GI Medical History: Reports: Hx Gastroesophageal Reflux Disease. Denies: Hx Hiatal Hernia, Hx Ulcer Musculoskeltal Medical History: Reports Hx Arthritis, Reports Hx Musculoskeletal Deformity - BKA Psychiatric Medical History: Reports: Hx Dementia, Hx Depression Denies: Hx Attention Deficit Hyperactivity Disorder, Hx Bipolar Disorder, Hx Schizophrenia Past Surgical History: Reports: Hx Abdominal Surgery, Hx Cardiac Surgery - defibrillator, Hx Internal Defibrillator, Hx Orthopedic Surgery - left BKA, Hx Vascular Surgery - left groin. Denies: Hx Open Heart Surgery - Immunizations Hx Diphtheria, Pertussis, Tetanus Vaccination: No Review of Systems - Review of Systems Notes: My Normal Review Basic REVIEW OF SYSTEMS: CONSTITUTIONAL : Denies fever, chills, or sweats. Denies recent illness. EENT: Denies eye, ear, throat, or mouth pain or symptoms. Denies nasal or sinus congestion. RESPIRATORY: Denies cough, cold, or chest congestion. Denies shortness of breath, difficulty breathing, or wheezing. GASTROINTESTINAL: Denies abdominal pain. Denies nausea, vomiting, or diarrhea. GENITOURINARY: In Place Babb catheter with some hematuria. FEMALE GENITOURINARY: Denies vaginal bleeding, abnormal or irregular periods. LMP: MUSCULOSKELETAL: Denies neck or back pain or joint pain or swelling. SKIN: Denies rash or skin lesions. HEMATOLOGIC : On Plavix. NEUROLOGICAL: Nursing reports altered mental status however patient currently shows no signs of altered mental status. ALL OTHER SYSTEMS REVIEWED AND NEGATIVE. Physical Exam - Vital signs Vitals: Temp Pulse Resp BP Pulse Ox 98.3 F 84 18 123/74 100 07/09/17 01:17 07/09/17 01:17 07/09/17 01:17 07/09/17 01:17 07/09/17 01:17 - Notes Notes: General Appearance: Well nourished, alert, cooperative, no acute distress, no obvious discomfort. Well-appearing. Vitals: reviewed, See vital signs table. Head: no swelling or tenderness to the head Eyes: PERRL, EOMI, Conjuctiva clear Mouth: No decreasd moisture Neck: Supple, no neck tenderness, No thyromegaly Lungs: No wheezing, No rales, No rhonci, No accessory muscle use, good air exchange bilaterally. Heart: Normal rate, Regular rythm, No murmur, no rub Abdomen: Normal BS, soft, No rigidity, No abdominal tenderness, No guarding, no rebound, feeding tube in place and upper abdomen. There is no redness or swelling or discharge around the feeding tube site. Genital: Babb catheter in place. Patient has chronic deformity to base of penis with urethral disruption from chronic babb placement. Extremities: Left leg amputation. Right leg has no edema redness or swelling. Skin: warm, dry, appropriate color, no rash Neuro: speech clear, oriented x 2, normal affect, responds appropriately to questions. Patient has some facial droop from previous stroke. No new focal neurologic defecits on exam. Course - Re-evaluation Re-evalutation: 07/09/17 03:29 07/09/17 05:18 Patient is very hypernatremic. He has had this several times in the past. After his last admission he was discharged home with instructions to receive free water through the feeding tube every day. It is unclear if this has been continued as his sodium is now over 180. BUN is also very high suggesting that he is dehydrated. I have given him normal saline bolus. I will admit him for further treatment as hyponatremia. Patient does have some hematuria. This most likely is related to his chronic indwelling Babb catheter in conjunction with him being on Plavix. Patient's urinalysis still pending for signs of infection. I did speak with the hospitalist says she will follow-up on urinalysis and agrees to admit the patient. Dictation of this chart was performed using voice recognition software; therefore, there may be some unintended grammatical errors. - Vital Signs Vital signs: Temp Pulse Resp BP Pulse Ox 98.3 F 84 14 138/72 H 100 07/09/17 01:17 07/09/17 01:17 07/09/17 03:00 07/09/17 03:00 07/09/17 03:00 - Laboratory Result Diagrams: 07/09/17 02:29 07/09/17 02:29 Laboratory results interpreted by me: 07/09/17 07/09/17 07/09/17 02:29 02:29 04:24 Hgb 12.9 L MCH 24.5 L MCHC 30.3 L RDW 24.5 H Plt Count 122 L Monocytes % (Manual) 0 L Abs Monocytes (Manual) 0.0 L Sodium 182.2 H* Chloride 138 H Carbon Dioxide 35 H BUN 69 H Glucose 282 H Urine Protein >=500 H Urine Glucose (UA) 150 H Urine Blood SMALL H Ur Leukocyte Esterase TRACE H Urine Ascorbic Acid 40 H Discharge - Discharge Clinical Impression: Dehydration, Hypernatremia Hematuria Qualifiers: Hematuria type: unspecified type Qualified Code(s): R31.9 - Hematuria, unspecified Condition: Stable Disposition: ADMITTED INPATIENT Admitting Provider: Hospitalist
[2017-07-09 02:54] LABS: BLOOD UREA NITROGEN 69 mg/dL (7-20); CALCIUM 10.1 mg/dL (8.4-10.2); CARBON DIOXIDE 35 mmol/L (22-30); CHLORIDE 138 mmol/L (98-107); GLUCOSE 282 mg/dL (75-110); POTASSIUM 4.2 mmol/L (3.6-5.0)
[2017-07-09 02:56] LABS: ANION GAP 9 (5-19)
[2017-07-09 03:08] LABS: SODIUM 182.2 mmol/L (137-145)
[2017-07-09 03:21] LABS: HEMATOCRIT 42.5 % (37.9-51.0); HEMOGLOBIN 12.9 g/dL (13.5-17.0); MEAN CORPUSCULAR HEMOGLOBIN 24.5 pg (27.0-33.4); MEAN CORPUSCULAR HGB CONC 30.3 g/dL (32.0-36.0); MEAN CORPUSCULAR VOLUME 81 fl (80-97); PLATELET COUNT 122 10^3/uL (150-450); RED BLOOD COUNT 5.26 10^6/uL (4.35-5.55); RED CELL DISTRIBUTION WIDTH 24.5 % (11.5-14.0); WHITE BLOOD COUNT 4.4 10^3/uL (4.0-10.5)
[2017-07-09 03:27] LABS: ABSOLUTE LYMPHOCYTES# (MANUAL) 1.1 10^3/uL (0.5-4.7); ABSOLUTE NEUTROPHILS# (MANUAL) 3.1 10^3/uL (1.7-8.2); BASOPHILS % (MANUAL) 0 % (0-2); EOSINOPHILS % (MANUAL) 3 % (0-6); LYMPHOCYTES % (MANUAL) 26 % (13-45); MONOCYTES % (MANUAL) 0 % (3-13); SEGMENTED NEUTROPHILS % (MAN) 71 % (42-78); TOTAL CELLS COUNTED 100
[2017-07-09 03:29] LABS: ANISOCYTOSIS 3+; OVALOCYTES SLIGHT; PLATELET COMMENT DECREASED; POIKILOCYTOSIS SLIGHT; TARGET CELLS SLIGHT; TEAR DROP CELLS SLIGHT
[2017-07-09] MEDS ORDERED: NORMAL SALINE 500 ML IV ONE (03:30)
[2017-07-09] MEDS ORDERED: SENNOSIDES/DOCUSATE 8.6-50 MG 1 EACH TABLET PEG PRN (04:40)
[2017-07-09 04:44] LABS: APPEARANCE,URINE SLIGHTLY-CLOUDY; BILIRUBIN,URINE NEGATIVE (NEGATIVE); GLUCOSE, URINE 150 mg/dL (NEGATIVE); KETONES,URINE NEGATIVE (NEGATIVE); LEUKOCYTE ESTERASE,URINE TRACE (NEGATIVE); NITRITE,URINE NEGATIVE (NEGATIVE); PROTEIN,URINE >=500 mg/dL (NEGATIVE); URINE SPECIFIC GRAVITY 1.016; UROBILINOGEN,URINE NEGATIVE mg/dL (<2.0)
[2017-07-09 04:45] LABS: COLOR,URINE RED
[2017-07-09] MEDS ORDERED: PIPERACILLIN/TAZOBACTAM 3.375 GM VIAL IV PRN (04:50)
[2017-07-09] MEDS ORDERED: PIPERACILLIN SODIUM/TAZOBACTAM 3.375 GM in NORMAL SALINE 100 ML IV ONE (05:00)
[2017-07-09] MEDS ORDERED: DEXTROSE 50%-WATER 25 GM/50 ML DISP.SYRIN IV PRN ×2 (05:13)
[2017-07-09] MEDS ORDERED: DEXTROSE 40% GEL 15 GM TUBE PO PRN ×2 (05:13)
[2017-07-09] MEDS ORDERED: GLUCAGON,HUMAN RECOMB 1 MG INJ IM PRN (05:13)
--- NOTE | 2017-07-09 05:49 | PDOC H&P ---
History of Present Illness Admission Date/PCP: 07/09/2017 Dr. Rosales History of Present Illness: SEUN TOTH is a 76 year old male with a history of dementia, CVA with recurrent aspiration requiring PEG tube placement, coronary artery disease, chronic diastolic congestive heart failure with a last known EF of 40%, hypertension, hyperlipidemia, peripheral vascular disease, chronic indwelling Catalan catheter, diabetes mellitus who was sent to the emergency department for altered mental status and blood in his Catalan catheter. Patient is unable to provide any history for me at this time and does not cooperate with exam. Patient was found to have a serum sodium of 182 as well as hematuria and referred to the hospital service for admission. Patient's medications are currently undergoing reconciliation. Current list is automatically generated by [facility] and does not reflect an accurate description of his medications. Due to the urgent/emergent nature of his condition, he is admitted without a full list. Past Medical History Cardiac Medical History: Reports: Congestive Heart Failure, Coronary Artery Disease - stent x 1, Myocardial Infarction - 2004, Hyperlipidema, Hypertension, Peripheral Vascular Disease Pulmonary Medical History: Reports: Asthma - as child Denies: Bronchitis, Chronic Obstructive Pulmonary Disease (COPD), Pneumonia, Tuberculosis Neurological Medical History: Denies: Seizures Endocrine Medical History: Reports: Diabetes Mellitus Type 2 GI Medical History: Reports: Gastroesophageal Reflux Disease Denies: Hiatal Hernia Musculoskeltal Medical History: Reports: Arthritis Psychiatric Medical History: Reports: Dementia, Depression Denies: Attention Deficit Hyperactivity Disorder, Bipolar Disorder Hematology: Reports: Anemia Denies: Sickle Cell Disease Past Surgical History Past Surgical History: Reports: Internal Defibrillator, Orthopedic Surgery - left BKA, Vascular Surgery - left groin, Other - PEG tube Social History Smoking Status: Never Smoker Frequency of Alcohol Use: None Hx Recreational Drug Use: No Drugs: None Hx Prescription Drug Abuse: No - Advance Directive Resuscitation Status: Full Code Surrogate healthcare decision maker:: Carrie Jaylon, niece Family History Family History: Reviewed & Not Pertinent, Other - Unobtainable Parental Family History Reviewed: No - Unobtainable Children Family History Reviewed: No Sibling(s) Family History Reviewed.: No Medication/Allergy Home Medications: Acetaminophen [Tylenol Arthritis 650 mg Tablet] 650 mg PEG Q6HP PRN 05/22/17 Ascorbic Acid [Vitamin C 500 mg Tablet] 500 mg PEG TID 05/22/17 Aspirin [Aspirin 81 mg Chewable Tablet] 81 mg PEG DAILY 05/22/17 Atorvastatin Calcium [Lipitor 10 mg Tablet] 10 mg PEG QHS 05/22/17 Clopidogrel Bisulfate [Plavix 75 mg Tablet] 75 mg PEG DAILY 05/22/17 Doxazosin Mesylate [Cardura 2 mg Tablet] 2 mg PEG QHS 05/22/17 Ferrous Sulfate [Ferrous Sulfate Liquid 300 mg/5 ml Udcup] 5 ml PEG BID Finasteride [Proscar 5 mg Tablet] 5 mg PEG DAILY 05/22/17 Folic Acid [Folvite 1 mg Tablet] 1 mg PEG DAILY 05/22/17 Insulin Lispro [Humalog Insulin (Lispro) 100 unit/mL] 0 units SQ .SLIDING SCALE 05/22/17 Lansoprazole [Prevacid 30 mg Odt Tablet] 30 mg PEG BID 05/22/17 Latanoprost [Xalatan 0.005% Oph Soln 2.5 ml] 1 drop OU QHS 05/22/17 Multivit-Minerals/Ferrous Gluc [Certa Benigno Liquid] 15 ml PEG DAILY 05/22/17 Polyethylene Glycol 3350 [Miralax Powder 17 gm/Packet] 17 gm PEG DAILY 05/22/17 Sennosides/Docusate 8.6-50 mg [Senna Plus Tablet] 1 tab PEG BIDP PRN 05/22/17 Ascorbic Acid [Vitamin C 500 mg Tablet] 500 mg PEG TID tablet 05/31/17 Aspirin [Aspirin 81 mg Chewable Tablet] 81 mg PEG DAILY tab.chew 05/31/17 Carvedilol [Coreg 12.5 mg Tablet] 12.5 mg PO Q12 tablet 05/31/17 Clopidogrel Bisulfate [Plavix 75 mg Tablet] 75 mg PEG DAILY tablet 05/31/17 Insulin Lispro [Humalog Insulin (Lispro) 100 unit/mL] 0 - 12 unit SUBCUT Q6HP PRN unit 05/31/17 Ipratropium/Albuterol Sulfate [Duoneb 3 ml Ampul] 3 ml NEB RTQ6HP PRN vial.neb 05/31/17 Phenol/Sodium Phenolate [Chloraseptic Sore Throat [place] 177 ml] 2 spray PO Q6HP PRN bottle 05/31/17 Polyethylene Glycol 3350 [Miralax Powder 17 gm/Packet] 17 gm PO DAILY powd.pack 05/31/17 Allergies/Adverse Reactions: No Known Allergies Allergy (Verified 02/22/17 11:56) Review of Systems ROS unobtainable: Due to mental status Physical Exam Vital Signs: Temp Pulse Resp BP Pulse Ox 98.3 F 84 14 138/72 H 100 07/09/17 01:17 07/09/17 01:17 07/09/17 03:00 07/09/17 03:00 07/09/17 03:00 Intake & Output 07/07/17 07/08/17 07/09/17 06:59 06:59 06:59 Weight 74 kg General appearance: PRESENT: no acute distress, well-developed, well-nourished Head exam: PRESENT: atraumatic, normocephalic Eye exam: PRESENT: conjunctiva pink, EOMI, PERRLA. ABSENT: scleral icterus Ear exam: PRESENT: normal external ear exam Mouth exam: PRESENT: dry mucosa, tongue midline Neck exam: ABSENT: JVD, lymphadenopathy, thyromegaly, tracheal deviation Respiratory exam: PRESENT: clear to auscultation joaquin, symmetrical, unlabored. ABSENT: accessory muscle use, rales, rhonchi, tachypnea, wheezes Cardiovascular exam: PRESENT: RRR, +S1, +S2, systolic murmur. ABSENT: diastolic murmur, gallop, rubs Pulses: PRESENT: normal radial pulses Vascular exam: PRESENT: normal capillary refill GI/Abdominal exam: PRESENT: hypoactive bowel sounds, normal bowel sounds, soft, other - PEG tube in place. ABSENT: distended, firm, guarding, mass, Perkins's sign, organolmegaly, rebound, rigid, tenderness Rectal exam: PRESENT: deferred Gentrourinary exam: PRESENT: indwelling catheter, other - 3 cm split in the urethra and urethral meatus Extremities exam: ABSENT: calf tenderness, clubbing, pedal edema Neurological exam: PRESENT: alert, altered, awake, motor sensory deficit - Left hemiparesis. ABSENT: oriented to person, oriented to place, oriented to time, oriented to situation, CN II-XII grossly intact - Left facial droop, dysarthria Psychiatric exam: PRESENT: flat affect Skin exam: PRESENT: dry, warm. ABSENT: cyanosis Results Laboratory Results: 07/09/17 02:29 07/09/17 02:29 07/09/17 07/09/17 07/09/17 02:29 02:29 04:24 WBC 4.4 RBC 5.26 Hgb 12.9 L Hct 42.5 MCV 81 MCH 24.5 L MCHC 30.3 L RDW 24.5 H Plt Count 122 L Seg Neutrophils % Not Reportable Lymphocytes % Not Reportable Monocytes % Not Reportable Eosinophils % Not Reportable Basophils % Not Reportable Absolute Neutrophils Not Reportable Absolute Lymphocytes Not Reportable Absolute Monocytes Not Reportable Absolute Eosinophils Not Reportable Absolute Basophils Not Reportable Sodium 182.2 H* Potassium 4.2 Chloride 138 H Carbon Dioxide 35 H Anion Gap 9 BUN 69 H Creatinine 1.10 Est GFR ( Amer) > 60 Est GFR (Non-Af Amer) > 60 Glucose 282 H Calcium 10.1 Urine Color RED Urine Appearance SLIGHTLY-CLOUDY Urine pH 8.0 Ur Specific [place] 1.016 Urine Protein >=500 H Urine Glucose (UA) 150 H Urine Ketones NEGATIVE Urine Blood SMALL H Urine Nitrite NEGATIVE Ur Leukocyte Esterase TRACE H Urine RBC (Auto) >182 Assessment & Plan - Diagnosis (1) Hypernatremia Is this a current diagnosis for this admission?: Yes Plan: This is secondary to failure to adequately replete patient's free water losses. Place patient on D5 and check BMP every 6 hours with a goal of a decrease in 10 mEq of sodium in 24 hours. (2) Hematuria Qualifiers: Hematuria type: gross Qualified Code(s): R31.0 - Gross hematuria Is this a current diagnosis for this admission?: Yes Plan: Patient is on Plavix and has catheter flushes fine. We will hold his Plavix at this time to allow this to heal. Patient appears to have a UTI which could be precipitating this and he also is prone to manipulating his catheter. (3) ARF (acute renal failure) Qualifiers: Is this a current diagnosis for this admission?: Yes Plan: Secondary to dehydration (4) Anemia Qualifiers: Anemia type: iron deficiency Is this a current diagnosis for this admission?: Yes (5) CVA (cerebral vascular accident) Qualifiers: CVA mechanism: unspecified Qualified Code(s): I63.9 - Cerebral infarction, unspecified Is this a current diagnosis for this admission?: Yes (6) Chronic systolic (congestive) heart failure Is this a current diagnosis for this admission?: Yes Plan: Last known EF of 40% with chronic combined systolic diastolic CHF. Continue patient's Coreg currently volume depleted (7) Diabetes Qualifiers: Diabetes mellitus type: type 2 Diabetes mellitus complication status: with circulatory complication Diabetes mellitus complication detail: with other circulatory complications Diabetes mellitus detention insulin use: with oil heaterman use Qualified Code(s): E11.59 - Type 2 diabetes mellitus with other circulatory complications; Z79.4 - correction (current) use of insulin; Z79.4 - correction (current) use of insulin; Z79.4 - correction (current) use of insulin; Z79.4 - long term care phlebotomist (current) use of insulin Is this a current diagnosis for this admission?: Yes Plan: Place patient on sliding scale insulin and Accu-Cheks every 6 (8) Dysphagia, late effect of cerebrovascular disease Is this a current diagnosis for this admission?: Yes Plan: Continue tube feedings (9) Paroxysmal atrial fibrillation Is this a current diagnosis for this admission?: Yes (10) Senile dementia, delirium Qualifiers: Dementia behavioral disturbance: without behavioral disturbance Qualified Code(s): F03.90 - Unspecified dementia without behavioral disturbance; F05 - Delirium due to known physiological condition; F05 - Delirium due to known physiological condition Is this a current diagnosis for this admission?: Yes Plan: Supportive care (11) Urinary tract infection with hematuria Qualifiers: Urinary tract infection type: site unspecified Qualified Code(s): N39.0 - Urinary tract infection, site not specified; R31.9 - Hematuria, unspecified; R31.9 - Hematuria, unspecified Is this a current diagnosis for this admission?: Yes Plan: Initiate patient on Zosyn pending culture results (12) CAD (coronary artery disease) Qualifiers: Coronary Disease-Associated Artery/Lesion type: [place]all artery [place] vs. transplanted heart: marshall heart Associated angina: without angina Qualified Code(s): I25.10 - Atherosclerotic heart disease of marshall coronary artery without angina pectoris Is this a current diagnosis for this admission?: Yes (13) HTN (hypertension) Qualifiers: Hypertension type: essential hypertension Qualified Code(s): I10 - Essential (primary) hypertension Is this a current diagnosis for this admission?: Yes (14) History of left below knee amputation Is this a current diagnosis for this admission?: Yes (15) History of cerebrovascular accident with residual deficit Is this a current diagnosis for this admission?: Yes (16) Full code status Is this a current diagnosis for this admission?: Yes - Time Time Spent: 30 to 50 Minutes Medications reviewed and adjusted accordingly: Yes Anticipated discharge: SNF - Inpatient Certification Based on my medical assessment, after consideration of the patient's comorbidities, presenting symptoms, or acuity I expect that the services needed warrant INPATIENT care.: Yes I certify that my determination is in accordance with my understanding of Medicare's requirements for reasonable and necessary INPATIENT services [42 CFR 412.3e].: Yes Medical Necessity: Need For IV Fluids, Need For Continuous Telemetry Monitoring , Need for IV Antibiotics, Risk of Complication if Not Cared For in Hospital Post Hospital Care: 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
[2017-07-09] MEDS: DEXTROSE 5%-WATER 1000 ML 1,000 ML IV PRN (06:03)
[2017-07-09 06:36] LABS: BLOOD UREA NITROGEN 59 mg/dL (7-20); CALCIUM 10.1 mg/dL (8.4-10.2); CARBON DIOXIDE 33 mmol/L (22-30); CHLORIDE 139 mmol/L (98-107); GLUCOSE 253 mg/dL (75-110)
[2017-07-09 06:52] LABS: ANION GAP 9 (5-19)
[2017-07-09 06:54] LABS: SODIUM 181.1 mmol/L (137-145)
[2017-07-09] MEDS ORDERED: FERROUS GLUC PEG SCH (10:00)
[2017-07-09] MEDS ORDERED: ASPIRIN 81 MG TABLET, CHEWABLE PEG SCH (10:00)
[2017-07-09] MEDS ORDERED: CARVEDILOL 12.5 MG TABLET NG SCH (10:00)
[2017-07-09] MEDS ORDERED: MULTIVIT MINERALS PEG SCH (10:00)
[2017-07-09] MEDS: FINASTERIDE 5 MG TABLET PO SCH (11:14)
[2017-07-09] MEDS: CARVEDILOL 12.5 MG TABLET PEG SCH ×2 (11:14→22:43)
[2017-07-09] MEDS: ASCORBIC ACID 500 MG TABLET PEG SCH ×3 (11:15→18:35)
[2017-07-09] MEDS: LANSOPRAZOLE 30 MG TAB.RAP.DR PEG SCH ×2 (11:15→18:35)
[2017-07-09] MEDS: FERROUS SULFATE LIQUID 300 MG/5 ML UDC PEG SCH ×2 (11:15→18:35)
[2017-07-09] MEDS: FOLIC ACID 1 MG TABLET PEG SCH (11:16)
[2017-07-09] MEDS: POLYETHYLENE GLYCOL 3350 POWDER 17 GM/1 PACKET PEG SCH (11:16)
[2017-07-09 12:39] LABS: ANION GAP 9 (5-19); BLOOD UREA NITROGEN 60 mg/dL (7-20); CALCIUM 9.8 mg/dL (8.4-10.2); CARBON DIOXIDE 32 mmol/L (22-30); CHLORIDE 137 mmol/L (98-107); GLUCOSE 293 mg/dL (75-110); POTASSIUM 3.7 mmol/L (3.6-5.0)
[2017-07-09 12:46] LABS: SODIUM 177.8 mmol/L (137-145)
[2017-07-09] MEDS: PIPERACILLIN SODIUM/TAZOBACTAM 3.375 GM in NORMAL SALINE 100 ML IV SCH ×2 (16:18→18:59)
--- NOTE | 2017-07-09 17:04 | RADIOLOGY REPORT (SQ) ---
EXAM DESCRIPTION: PICC INSERTION; U/S GUIDE FOR VASCULAR ACCESS; FLUORO/CV PLACEMENT COMPLETED DATE/TIME: 07/09/2017 4:39 pm; 07/09/2017 4:40 pm REASON FOR STUDY: need access; PICC; PICC INSERTION COMPARISON: None. FLUOROSCOPY TIME: 1 minutes 41 seconds. 1 images saved to PACS. TECHNIQUE: Fluoroscopic and ultrasound guided PICC placement. LIMITATIONS: None. PROCEDURE: After written consent and assessment were obtained, the patient was brought into the fluo roscopy room and place supine on the table. Ultrasound was used on the patient's left arm for PICC a ccess. The left arm was prepped and draped in a sterile fashion along with the ultrasound probe. The entry site was anesthetized with 1% lidocaine. A 21 gauge 7 cm needle was advanced through the skin a nd into the basilic vein under live ultrasound guidance. An ultrasound image was saved to PACS confi rming access site. A .018 guide wire was then inserted through the needle and into the venous system . The needle was the removed and an 11 blade scalpel was used to make a 1cm skin incision. A 5 fr pe el-away sheath was advanced over the wire and into the venous system. A measurement was then made usi ng the existing wire and live fluoroscopic guidance. The wire was then removed and the trimmed. The P ICC was advanced through the peel-away sheath and into the venous system. The peel-away sheath was re moved and the catheter was adhered to the patients arm with a stat lock. The catheter was then aspira sol and flushed and a sterile bandage was placed over the access site. A fluoroscopic spot image was saved to PACS confirming the catheter tip within the superior vena cava. IMPRESSION: SUCCESSFUL PLACEMENT OF A 5 FR DUAL LUMEN 43 CM PICC IN THE LEFT BASILIC VEIN. COMMENT: Patient medication list reviewed: Yes- Quality ID# [id number]:Eligible professional attests to doc umenting in the medical record they obtained, updated, or reviewed the patient's current medications. . Quality ID 145: Final reports for procedures using fluoroscopy that document radiation exposure [place], or exposure time and number of fluorographic images (if radiation exposure indices are not avail able) Quality ID #76: The patient was prepped and draped using maximum sterile barrier technique including cap, mask, sterile gown, sterile gloves, a large sterile sheet, hand hygiene, and 2% Chlorhexidine fo r cutaneous antisepsis. When ultrasound is used, sterile ultrasound techniques are followed requiring sterile gel and sterile probes. TECHNICAL DOCUMENTATION: JOB ID: [id number] [employer]- All Rights Reserved
[2017-07-09 17:59] LABS: ANION GAP 7 (5-19); BLOOD UREA NITROGEN 60 mg/dL (7-20); CALCIUM 9.6 mg/dL (8.4-10.2); CARBON DIOXIDE 34 mmol/L (22-30); CHLORIDE 137 mmol/L (98-107); GLUCOSE 258 mg/dL (75-110); POTASSIUM 3.8 mmol/L (3.6-5.0)
[2017-07-09 18:15] LABS: SODIUM 178.2 mmol/L (137-145)
[2017-07-09] MEDS: DOXAZOSIN MESYLATE 2 MG TABLET PEG SCH (22:43)
[2017-07-09] MEDS: LATANOPROST 0.005% OPH SOLN 2.5 ML OU SCH (22:50)
[2017-07-10 00:15] LABS: ANION GAP 8 (5-19); BLOOD UREA NITROGEN 53 mg/dL (7-20); CALCIUM 9.2 mg/dL (8.4-10.2); CARBON DIOXIDE 33 mmol/L (22-30); CHLORIDE 134 mmol/L (98-107); GLUCOSE 305 mg/dL (75-110); POTASSIUM 3.7 mmol/L (3.6-5.0)
[2017-07-10] MEDS: PIPERACILLIN SODIUM/TAZOBACTAM 3.375 GM in NORMAL SALINE 100 ML IV SCH ×5 (00:24→23:10)
[2017-07-10] MEDS: DEXTROSE 5%-WATER 1000 ML 1,000 ML IV PRN ×2 (00:25→06:35)
[2017-07-10 00:28] LABS: SODIUM 174.6 mmol/L (137-145)
[2017-07-10] MEDS: INSULIN LISPRO 100 UNIT/ML 3 ML VIAL SUBCUT PRN ×2 (05:37→12:32)
[2017-07-10 06:07] LABS: ANION GAP 7 (5-19); BLOOD UREA NITROGEN 50 mg/dL (7-20); CALCIUM 9.3 mg/dL (8.4-10.2); CARBON DIOXIDE 33 mmol/L (22-30); CHLORIDE 135 mmol/L (98-107); GLUCOSE 230 mg/dL (75-110); MAGNESIUM 2.7 mg/dL (1.6-2.3); PHOSPHORUS 3.8 mg/dL (2.5-4.5); POTASSIUM 3.6 mmol/L (3.6-5.0)
[2017-07-10 06:12] LABS: SODIUM 174.5 mmol/L (137-145)
[2017-07-10 07:43] LABS: HEMATOCRIT 30.4 % (37.9-51.0); MEAN CORPUSCULAR HGB CONC 31.2 g/dL (32.0-36.0); MEAN CORPUSCULAR VOLUME 80 fl (80-97); RED CELL DISTRIBUTION WIDTH 24.2 % (11.5-14.0); WHITE BLOOD COUNT 3.6 10^3/uL (4.0-10.5)
[2017-07-10 08:17] LABS: HEMOGLOBIN 9.5 g/dL (13.5-17.0)
[2017-07-10 08:18] LABS: PLATELET ESTIMATE 110 10^3/uL (150-450)
[2017-07-10 08:21] LABS: ABSOLUTE LYMPHOCYTES# (MANUAL) 0.9 10^3/uL (0.5-4.7); ABSOLUTE MONOCYTES # (MANUAL) 0.3 10^3/uL (0.1-1.4); ABSOLUTE NEUTROPHILS# (MANUAL) 2.3 10^3/uL (1.7-8.2); BAND NEUTROPHILS % (MANUAL) 1 % (3-5); BASOPHILS % (MANUAL) 1 % (0-2); EOSINOPHILS % (MANUAL) 2 % (0-6); LYMPHOCYTES % (MANUAL) 25 % (13-45); MONOCYTES % (MANUAL) 8 % (3-13); SEGMENTED NEUTROPHILS % (MAN) 63 % (42-78); TOTAL CELLS COUNTED 100
[2017-07-10 08:22] LABS: ANISOCYTOSIS 3+; HYPOCHROMASIA 1+; OVALOCYTES 1+; PLATELET COMMENT DECREASED; PLATELET LARGE PRESENT; POIKILOCYTOSIS 1+
[2017-07-10] MEDS: FERROUS SULFATE LIQUID 300 MG/5 ML UDC PEG SCH ×2 (09:58→17:53)
[2017-07-10] MEDS: FOLIC ACID 1 MG TABLET PEG SCH (09:58)
[2017-07-10] MEDS: ASCORBIC ACID 500 MG TABLET PEG SCH ×3 (09:58→17:56)
[2017-07-10] MEDS: CARVEDILOL 12.5 MG TABLET PEG SCH (09:58)
[2017-07-10] MEDS: POLYETHYLENE GLYCOL 3350 POWDER 17 GM/1 PACKET PEG SCH (09:58)
[2017-07-10] MEDS: LANSOPRAZOLE 30 MG TAB.RAP.DR PEG SCH ×2 (09:58→17:53)
[2017-07-10] MEDS: FINASTERIDE 5 MG TABLET PO SCH (09:58)
[2017-07-10] MEDS: MULTIVITS W-MIN/IRON SOLN 60 ML PEG SCH (12:32)
[2017-07-10] MEDS ORDERED: TRANEXAMIC ACID INJ/PF 1,000 MG/10 ML SDV IV ONE (16:30)
[2017-07-10 23:15] LABS: ANION GAP 8 (5-19); BLOOD UREA NITROGEN 49 mg/dL (7-20); CARBON DIOXIDE 32 mmol/L (22-30); CHLORIDE 130 mmol/L (98-107); GLUCOSE 238 mg/dL (75-110); POTASSIUM 3.4 mmol/L (3.6-5.0)
[2017-07-10 23:54] LABS: SODIUM 169.5 mmol/L (137-145)
[2017-07-11] MEDS: TRANEXAMIC ACID INJ/PF 1,000 MG/10 ML SDV IV SCH ×3 (00:05→17:56)
[2017-07-11] MEDS: LATANOPROST 0.005% OPH SOLN 2.5 ML OU SCH ×2 (00:05→23:57)
[2017-07-11] MEDS: CARVEDILOL 12.5 MG TABLET PEG SCH ×3 (02:33→23:57)
[2017-07-11] MEDS: DOXAZOSIN MESYLATE 2 MG TABLET PEG SCH ×2 (02:33→23:57)
[2017-07-11] MEDS: DEXTROSE 5%-WATER 1000 ML 1,000 ML IV PRN ×2 (04:26→17:57)
[2017-07-11] MEDS: PIPERACILLIN SODIUM/TAZOBACTAM 3.375 GM in NORMAL SALINE 100 ML IV SCH ×3 (05:34→17:56)
[2017-07-11 06:14] LABS: HEMATOCRIT 26.2 % (37.9-51.0); HEMOGLOBIN 8.1 g/dL (13.5-17.0); MEAN CORPUSCULAR HEMOGLOBIN 24.8 pg (27.0-33.4); MEAN CORPUSCULAR HGB CONC 30.8 g/dL (32.0-36.0); MEAN CORPUSCULAR VOLUME 81 fl (80-97); RED BLOOD COUNT 3.25 10^6/uL (4.35-5.55); WHITE BLOOD COUNT 4.3 10^3/uL (4.0-10.5)
[2017-07-11 06:36] LABS: ABSOLUTE LYMPHOCYTES# (MANUAL) 0.6 10^3/uL (0.5-4.7); ABSOLUTE MONOCYTES # (MANUAL) 0.3 10^3/uL (0.1-1.4); ABSOLUTE NEUTROPHILS# (MANUAL) 3.2 10^3/uL (1.7-8.2); ANISOCYTOSIS 3+; BASOPHILS % (MANUAL) 1 % (0-2); EOSINOPHILS % (MANUAL) 4 % (0-6); LYMPHOCYTES % (MANUAL) 14 % (13-45); MONOCYTES % (MANUAL) 7 % (3-13); NUCLEATED RED BLOOD CELLS 1 /100 WBC (0); SEGMENTED NEUTROPHILS % (MAN) 74 % (42-78); TOTAL CELLS COUNTED 100
[2017-07-11 06:40] LABS: PLATELET COMMENT DECREASED; PLATELET LARGE PRESENT
[2017-07-11] MEDS: FOLIC ACID 1 MG TABLET PEG SCH (10:38)
[2017-07-11] MEDS: LANSOPRAZOLE 30 MG TAB.RAP.DR PEG SCH ×2 (10:39→17:54)
[2017-07-11] MEDS: FERROUS SULFATE LIQUID 300 MG/5 ML UDC PEG SCH ×2 (10:39→17:56)
[2017-07-11] MEDS: MULTIVITS W-MIN/IRON SOLN 60 ML PEG SCH (10:39)
[2017-07-11] MEDS: FINASTERIDE 5 MG TABLET PO SCH (10:39)
[2017-07-11] MEDS: ASCORBIC ACID 500 MG TABLET PEG SCH ×3 (10:39→18:16)
[2017-07-11] MEDS: POLYETHYLENE GLYCOL 3350 POWDER 17 GM/1 PACKET PEG SCH (10:40)
[2017-07-11] MEDS: INSULIN LISPRO 100 UNIT/ML 3 ML VIAL SUBCUT PRN ×2 (12:39→18:01)
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
[2017-07-11] MEDS ORDERED: POTASSIUM CHLORIDE 20 MEQ/15 ML UDCUP PEG ONE ×2 (17:48→23:15)
[2017-07-11 21:19] LABS: ANION GAP 12 (5-19); BLOOD UREA NITROGEN 58 mg/dL (7-20); CALCIUM 9.2 mg/dL (8.4-10.2); CARBON DIOXIDE 28 mmol/L (22-30); CHLORIDE 125 mmol/L (98-107); GLUCOSE 213 mg/dL (75-110); SODIUM 164.8 mmol/L (137-145)
[2017-07-11 21:22] LABS: POTASSIUM 2.8 mmol/L (3.6-5.0)
[2017-07-12] MEDS ORDERED: LORAZEPAM INJ 2 MG/1 ML VIAL ONE (00:16)
[2017-07-12] MEDS ORDERED: LORAZEPAM INJ 2 MG/1 ML VIAL IV PRN (00:25)
[2017-07-12] MEDS ORDERED: LORAZEPAM INJ 2 MG/1 ML VIAL IV ONE (00:30)
[2017-07-12] MEDS: PIPERACILLIN SODIUM/TAZOBACTAM 3.375 GM in NORMAL SALINE 100 ML IV SCH ×4 (00:52→17:12)
[2017-07-12] MEDS: TRANEXAMIC ACID INJ/PF 1,000 MG/10 ML SDV IV SCH ×3 (00:52→17:12)
[2017-07-12] MEDS: DEXTROSE 5%-WATER 1000 ML 1,000 ML IV PRN (02:54)
[2017-07-12 05:16] LABS: ABSOLUTE LYMPHOCYTES (AUTO) 0.9 10^3/uL (0.5-4.7); ABSOLUTE MONOCYTES (AUTO) 0.2 10^3/uL (0.1-1.4); ABSOLUTE NEUT (AUTO) 4.8 10^3/uL (1.7-8.2); BASOPHILS % (AUTO) 0.2 % (0-2); EOSINOPHILS % (AUTO) 0.5 % (0-6); HEMATOCRIT 24.7 % (37.9-51.0); LYMPHOCYTES % (AUTO) 14.4 % (13-45); MEAN CORPUSCULAR HEMOGLOBIN 24.6 pg (27.0-33.4); MEAN CORPUSCULAR HGB CONC 30.8 g/dL (32.0-36.0); MEAN CORPUSCULAR VOLUME 80 fl (80-97); MONOCYTES % (AUTO) 3.9 % (3-13); RED BLOOD COUNT 3.08 10^6/uL (4.35-5.55); RED CELL DISTRIBUTION WIDTH 23.4 % (11.5-14.0); TOTAL CELLS COUNTED % (AUTO) 100 %
[2017-07-12 05:32] LABS: ANION GAP 14 (5-19); BLOOD UREA NITROGEN 58 mg/dL (7-20); CALCIUM 8.8 mg/dL (8.4-10.2); CARBON DIOXIDE 24 mmol/L (22-30); CHLORIDE 124 mmol/L (98-107); GLUCOSE 297 mg/dL (75-110); HEMOGLOBIN 7.6 g/dL (13.5-17.0); SODIUM 161.7 mmol/L (137-145)
[2017-07-12 05:33] LABS: PLATELET COUNT 79 10^3/uL (150-450)
[2017-07-12] MEDS: INSULIN LISPRO 100 UNIT/ML 3 ML VIAL SUBCUT PRN ×2 (08:44→12:18)
[2017-07-12] MEDS: FINASTERIDE 5 MG TABLET PO SCH (10:09)
[2017-07-12] MEDS: CARVEDILOL 12.5 MG TABLET PEG SCH ×2 (10:09→21:37)
[2017-07-12] MEDS: LANSOPRAZOLE 30 MG TAB.RAP.DR PEG SCH ×2 (10:09→17:12)
[2017-07-12] MEDS: FOLIC ACID 1 MG TABLET PEG SCH (10:09)
[2017-07-12] MEDS: POLYETHYLENE GLYCOL 3350 POWDER 17 GM/1 PACKET PEG SCH (10:09)
[2017-07-12] MEDS: FERROUS SULFATE LIQUID 300 MG/5 ML UDC PEG SCH ×2 (10:09→17:12)
[2017-07-12] MEDS: ASCORBIC ACID 500 MG TABLET PEG SCH ×3 (10:09→17:13)
[2017-07-12] MEDS: MULTIVITS W-MIN/IRON SOLN 60 ML PEG SCH (10:11)
[2017-07-12] MEDS: LATANOPROST 0.005% OPH SOLN 2.5 ML OU SCH (21:37)
[2017-07-12] MEDS: DOXAZOSIN MESYLATE 2 MG TABLET PEG SCH (21:38)
[2017-07-13] MEDS: PIPERACILLIN SODIUM/TAZOBACTAM 3.375 GM in NORMAL SALINE 100 ML IV SCH ×5 (00:42→23:12)
[2017-07-13] MEDS: INSULIN LISPRO 100 UNIT/ML 3 ML VIAL SUBCUT PRN ×4 (01:40→17:37)
[2017-07-13] MEDS: DEXTROSE 5%-WATER 1000 ML 1,000 ML IV PRN ×2 (04:33→15:37)
[2017-07-13] MEDS ORDERED: LORAZEPAM INJ 2 MG/1 ML VIAL ONE (05:02)
[2017-07-13] MEDS ORDERED: LORAZEPAM INJ 2 MG/1 ML VIAL IV ONE (05:15)
[2017-07-13] MEDS ORDERED: NORMAL SALINE 10 ML SDV (AFTER EACH USE) IV PRN (09:17)
[2017-07-13] MEDS: NORMAL SALINE 10 ML SDV (SCHEDULED) IV SCH ×2 (11:24→22:40)
[2017-07-13] MEDS: POLYETHYLENE GLYCOL 3350 POWDER 17 GM/1 PACKET PEG SCH (11:41)
[2017-07-13] MEDS: FERROUS SULFATE LIQUID 300 MG/5 ML UDC PEG SCH ×2 (11:47→17:38)
[2017-07-13] MEDS: LANSOPRAZOLE 30 MG TAB.RAP.DR PEG SCH ×2 (11:47→17:37)
[2017-07-13] MEDS: CARVEDILOL 12.5 MG TABLET PEG SCH ×2 (11:48→22:37)
[2017-07-13] MEDS: FOLIC ACID 1 MG TABLET PEG SCH (11:48)
[2017-07-13] MEDS: FINASTERIDE 5 MG TABLET PO SCH (11:48)
[2017-07-13] MEDS: ASCORBIC ACID 500 MG TABLET PEG SCH ×3 (11:49→17:37)
[2017-07-13] MEDS: MULTIVITS W-MIN/IRON SOLN 60 ML PEG SCH (11:49)
[2017-07-13 11:50] LABS: HEMATOCRIT 21.8 % (37.9-51.0); MEAN CORPUSCULAR HEMOGLOBIN 25.5 pg (27.0-33.4); MEAN CORPUSCULAR HGB CONC 31.7 g/dL (32.0-36.0); MEAN CORPUSCULAR VOLUME 81 fl (80-97); RED CELL DISTRIBUTION WIDTH 22.3 % (11.5-14.0); WHITE BLOOD COUNT 4.1 10^3/uL (4.0-10.5)
[2017-07-13 12:05] LABS: ANION GAP 8 (5-19); BLOOD UREA NITROGEN 64 mg/dL (7-20); CARBON DIOXIDE 26 mmol/L (22-30); CHLORIDE 118 mmol/L (98-107); GLUCOSE 251 mg/dL (75-110); MAGNESIUM 2.5 mg/dL (1.6-2.3); POTASSIUM 3.3 mmol/L (3.6-5.0); SODIUM 152.1 mmol/L (137-145)
[2017-07-13 12:21] LABS: HEMOGLOBIN 6.9 g/dL (13.5-17.0); PLATELET COUNT 43 10^3/uL (150-450)
[2017-07-13 12:27] LABS: ABSOLUTE LYMPHOCYTES# (MANUAL) 0.5 10^3/uL (0.5-4.7); ABSOLUTE MONOCYTES # (MANUAL) 0.2 10^3/uL (0.1-1.4); ABSOLUTE NEUTROPHILS# (MANUAL) 3.2 10^3/uL (1.7-8.2); ANISOCYTOSIS 3+; BAND NEUTROPHILS % (MANUAL) 1 % (3-5); BASOPHILS % (MANUAL) 1 % (0-2); EOSINOPHILS % (MANUAL) 3 % (0-6); HYPOCHROMASIA SLIGHT; LYMPHOCYTES % (MANUAL) 12 % (13-45); MONOCYTES % (MANUAL) 5 % (3-13); OVALOCYTES 1+; PLATELET COMMENT DECREASED; PLATELET LARGE PRESENT; POIKILOCYTOSIS 1+; POLYCHROMASIA SLIGHT; SEGMENTED NEUTROPHILS % (MAN) 78 % (42-78); TOTAL CELLS COUNTED 100
[2017-07-13] MEDS ORDERED: NORMAL SALINE 250 ML IV PRN ×2 (14:18)
[2017-07-13] MEDS ORDERED: FUROSEMIDE INJ/PF 40 MG/4 ML SDV IV PRN (14:18)
[2017-07-13] MEDS ORDERED: ACETAMINOPHEN 325 MG TABLET PEG PRN (14:18)
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
[2017-07-13] MEDS: DOXAZOSIN MESYLATE 2 MG TABLET PEG SCH (22:37)
--- NOTE | 2017-07-13 22:39 | PDOC PROGRESS REPORT ---
Subjective Progress Note for:: 07/13/17 Subjective:: Patient is a 76-year-old male with dementia, CVA and recurrent aspiration requiring PEG tube placement coronary artery disease, chronic diastolic congestive heart failure with EF of 40%, hypertension, hyperlipidemia, peripheral vascular disease status post last BKA/right great toe amputation, chronic indwelling Babb, diabetes was admitted from [facility] for hematuria and hypernatremia. Patient still in restraints. Patient urine grossly bloody again. Reason For Visit: HYPERNATREMIA,AMS Physical Exam Vital Signs: Temp Pulse Resp BP Pulse Ox 98.6 F 61 16 116/69 99 07/13/17 21:53 07/13/17 21:53 07/13/17 21:53 07/13/17 21:53 07/13/17 21:53 Intake & Output 07/12/17 07/13/17 07/14/17 06:59 06:59 06:59 Intake Total 3110 21988 3882 Output Total 96451 73661 2900 Balance -35921 -1728 982 Weight 81 kg 82.5 kg General appearance: PRESENT: no acute distress, well-developed, well-nourished Eye exam: ABSENT: scleral icterus Teeth exam: PRESENT: edentulous Neck exam: ABSENT: carotid bruit, JVD, lymphadenopathy, thyromegaly Respiratory exam: PRESENT: clear to auscultation joaquin. ABSENT: rales, rhonchi, wheezes Cardiovascular exam: PRESENT: RRR. ABSENT: diastolic murmur, rubs, systolic murmur GI/Abdominal exam: PRESENT: normal bowel sounds, soft, other - PEG tube in place. ABSENT: distended, guarding, mass, organolmegaly, rebound, tenderness Rectal exam: PRESENT: deferred Gentrourinary exam: PRESENT: indwelling catheter - grossly bloody urine Extremities exam: PRESENT: other - Left BKA and right great toe amupation. Contracture of the left hand. ABSENT: calf tenderness, clubbing, pedal edema Neurological exam: ABSENT: motor sensory deficit Psychiatric exam: ABSENT: homicidal ideation, suicidal ideation Skin exam: PRESENT: dry, intact, warm. ABSENT: cyanosis, rash Results Laboratory Results: 07/13/17 11:10 07/13/17 11:10 07/12/17 07/13/17 07/13/17 06:48 09:00 09:00 WBC Cancelled RBC Cancelled Hgb Cancelled Hct Cancelled MCV Cancelled MCH Cancelled MCHC Cancelled RDW Cancelled Plt Count Cancelled Seg Neutrophils % Cancelled Lymphocytes % Cancelled Monocytes % Cancelled Eosinophils % Cancelled Basophils % Cancelled Absolute Neutrophils Cancelled Absolute Lymphocytes Cancelled Absolute Monocytes Cancelled Absolute Eosinophils Cancelled Absolute Basophils Cancelled Sodium Cancelled Potassium Cancelled Chloride Cancelled Carbon Dioxide Cancelled Anion Gap Cancelled BUN Cancelled Creatinine Cancelled Est GFR ( Amer) Cancelled Est GFR (Non-Af Amer) Cancelled Glucose Cancelled Calcium Cancelled Magnesium Cancelled Blood Type B POSITIVE Antibody Screen NEGATIVE 07/13/17 07/13/17 11:10 11:10 WBC 4.1 RBC 2.70 L Hgb 6.9 L Hct 21.8 L MCV 81 MCH 25.5 L MCHC 31.7 L RDW 22.3 H Plt Count 43 L Seg Neutrophils % Not Reportable Lymphocytes % Not Reportable Monocytes % Not Reportable Eosinophils % Not Reportable Basophils % Not Reportable Absolute Neutrophils Not Reportable Absolute Lymphocytes Not Reportable Absolute Monocytes Not Reportable Absolute Eosinophils Not Reportable Absolute Basophils Not Reportable Sodium 152.1 H Potassium 3.3 L Chloride 118 H Carbon Dioxide 26 Anion Gap 8 BUN 64 H Creatinine 2.99 H Est GFR ( Amer) 25 L Est GFR (Non-Af Amer) 21 L Glucose 251 H Calcium 8.0 L Magnesium 2.5 H Blood Type Antibody Screen Impressions: Guidance Fluoroscopy 07/09/17 00:00 IMPRESSION: SUCCESSFUL PLACEMENT OF A 5 FR DUAL LUMEN 43 CM PICC IN THE LEFT BASILIC VEIN. Interventional Vascular Procedure 07/09/17 00:00 IMPRESSION: SUCCESSFUL PLACEMENT OF A 5 FR DUAL LUMEN 43 CM PICC IN THE LEFT BASILIC VEIN. PICC Line Insertion 07/09/17 00:00 IMPRESSION: SUCCESSFUL PLACEMENT OF A 5 FR DUAL LUMEN 43 CM PICC IN THE LEFT BASILIC VEIN. Assessment & Plan - Diagnosis (1) Hematuria Qualifiers: Hematuria type: gross Qualified Code(s): R31.0 - Gross hematuria Is this a current diagnosis for this admission?: Yes Plan: Patient with gross hematuria secondary to trauma from his babb. Will discontinue all antiplatelet and anticoagulation. Continue with continuous bladder irrigation. Urology was consulted and has ordered tranexamic acid which did help but now patient's urine is grossly bloody again. Patient now transfused a total of 3 units of PRBC. Patient may need further evaluation by urology. (2) Hypernatremia Is this a current diagnosis for this admission?: Yes Plan: Secondary to dehydration. Patient sodium was 182 on admission and is now down to the 150s. Continue D5W with monitoring of the sodium. Sodium is gradually improving. Monitor for volume overload especially with history of CHF. (3) ARF (acute renal failure) Qualifiers: Is this a current diagnosis for this admission?: Yes Plan: Possible secondary to obstruction. Patient creatinine was normal at 1.14 but continues to trend up. Concern about obstructive uropathy despite patient having babb. Will order renal US. (4) Acute cystitis Qualifiers: Hematuria presence: with hematuria Qualified Code(s): N30.01 - Acute cystitis with hematuria Is this a current diagnosis for this admission?: Yes Plan: Urine growing enterococcus fecalis D. Patient on appropriate antibiotic with zosyn. Today is day 4 of treatment. (5) Anemia Qualifiers: Anemia type: iron deficiency Is this a current diagnosis for this admission?: Yes Plan: Patient with iron deficient anemia complicated with acute blood loss anemia due to gross hematuria. Continue iron replacement. Patient transfused 3 units of PRBC continue hold all antiplatelet and heparin. 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 Adjust accordingly. Patient hyperglycemia due to D5W. (8) Hypokalemia Is this a current diagnosis for this admission?: Yes Plan: Patient still requires replacement. Will continue to monitor. - Time Time Spent with patient: 15-24 minutes Anticipated discharge: SNF - Inpatient Certification Medical Necessity: Significant Comorbidiites Make Outpatient Treatment Too Risky , Need Close Monitoring Due to Risk of Patient Decompensation, Need For IV Fluids, Need for IV Antibiotics
[2017-07-13] MEDS: LATANOPROST 0.005% OPH SOLN 2.5 ML OU SCH (22:42)
[2017-07-14 01:11] LABS: HEMATOCRIT 25.9 % (37.9-51.0); HEMOGLOBIN 8.2 g/dL (13.5-17.0); MEAN CORPUSCULAR HEMOGLOBIN 26.5 pg (27.0-33.4); MEAN CORPUSCULAR HGB CONC 31.7 g/dL (32.0-36.0); MEAN CORPUSCULAR VOLUME 84 fl (80-97); RED BLOOD COUNT 3.09 10^6/uL (4.35-5.55); RED CELL DISTRIBUTION WIDTH 20.4 % (11.5-14.0); WHITE BLOOD COUNT 4.7 10^3/uL (4.0-10.5)
[2017-07-14 01:30] LABS: PLATELET COUNT 50 10^3/uL (150-450)
[2017-07-14] MEDS: DEXTROSE 5%-WATER 1000 ML 1,000 ML IV PRN ×3 (05:04→23:34)
[2017-07-14] MEDS: PIPERACILLIN SODIUM/TAZOBACTAM 3.375 GM in NORMAL SALINE 100 ML IV SCH ×4 (05:09→23:29)
[2017-07-14 06:34] LABS: BLOOD UREA NITROGEN 54 mg/dL (7-20); CARBON DIOXIDE 19 mmol/L (22-30); GLUCOSE 165 mg/dL (75-110)
[2017-07-14 06:46] LABS: CHLORIDE 119 mmol/L (98-107); SODIUM 159.6 mmol/L (137-145)
[2017-07-14] MEDS: INSULIN LISPRO 100 UNIT/ML 3 ML VIAL SUBCUT PRN ×3 (06:51→17:43)
[2017-07-14 06:53] LABS: ANION GAP 22 (5-19)
[2017-07-14 06:55] LABS: CALCIUM 6.6 mg/dL (8.4-10.2)
[2017-07-14 06:56] LABS: POTASSIUM 2.7 mmol/L (3.6-5.0)
[2017-07-14] MEDS ORDERED: POTASSIUM CHLORIDE 20 MEQ/15 ML UDCUP PEG ONE (08:30)
--- NOTE | 2017-07-14 08:38 | RADIOLOGY REPORT (SQ) ---
EXAM DESCRIPTION: U/S RETROPERITON (RENAL/AORTA) COMPLETED DATE/TIME: 07/14/2017 7:31 am REASON FOR STUDY: ARF concern for obstruction COMPARISON: 05/24/2017. TECHNIQUE: Dynamic and static grayscale images acquired of the kidneys and bladder and recorded on P ACS. Additional selected color Doppler and spectral images recorded. LIMITATIONS: Limited portable study performed at the bedside. Patient uncooperative. FINDINGS: RIGHT KIDNEY: 9.9 cm in length. There is moderate hydronephrosis. Renal pelvis measures 1.5 cm. LEFT KIDNEY: 10 cm in length. Best demonstrated on cine sequences is dilatation of the collecting s ystem, moderate hydronephrosis. BLADDER: Not imaged. OTHER FINDINGS: No other significant finding. IMPRESSION: 1. Bilateral moderate hydronephrosis, limited assessment. No hydronephrosis noted on No vember study. CT scan may help to further assess etiology for obstruction. TECHNICAL DOCUMENTATION: JOB ID: [id number] [employer]- All Rights Reserved
[2017-07-14] MEDS: POLYETHYLENE GLYCOL 3350 POWDER 17 GM/1 PACKET PEG SCH (09:33)
[2017-07-14] MEDS: CARVEDILOL 12.5 MG TABLET PEG SCH ×2 (09:38→21:48)
[2017-07-14] MEDS: MULTIVITS W-MIN/IRON SOLN 60 ML PEG SCH (09:38)
[2017-07-14] MEDS: POTASSIUM CHLORIDE 20 MEQ/15 ML UDCUP PO SCH ×2 (09:38→21:48)
[2017-07-14] MEDS: FINASTERIDE 5 MG TABLET PO SCH (09:38)
[2017-07-14] MEDS: FERROUS SULFATE LIQUID 300 MG/5 ML UDC PEG SCH ×2 (09:38→17:43)
[2017-07-14] MEDS: ASCORBIC ACID 500 MG TABLET PEG SCH ×3 (09:39→17:44)
[2017-07-14] MEDS: LACTOBACILLUS ACIDOPHILUS 250 MG TAB PEG SCH ×2 (09:39→17:43)
[2017-07-14] MEDS: FOLIC ACID 1 MG TABLET PEG SCH (09:39)
[2017-07-14] MEDS: LANSOPRAZOLE 30 MG TAB.RAP.DR PEG SCH ×2 (09:39→17:44)
[2017-07-14] MEDS: NORMAL SALINE 10 ML SDV (SCHEDULED) IV SCH ×2 (09:40→21:49)
[2017-07-14] MEDS ORDERED: CHOLESTYRAMINE/ASPARTAME 4 GM PACKET PEG ONE (10:00)
[2017-07-14] MEDS: CHOLESTYRAMINE/ASPARTAME 4 GM PACKET PEG SCH ×3 (11:06→21:48)
[2017-07-14] MEDS ORDERED: POTASSI CL 20 MEQ/50 ML RIDER 50 ML IV ONE (13:45)
[2017-07-14] MEDS: POTASSI CL 20 MEQ/50 ML RIDER 20 MEQ/50 ML RTUPB IV SCH ×3 (14:52→18:36)
--- NOTE | 2017-07-14 18:03 | PDOC PROGRESS REPORT ---
Subjective Progress Note for:: 07/14/17 Reason For Visit: HYPERNATREMIA,AMS The patient is nonverbal bedbound from prior stroke has a chronic Catalan and a PEG left BKA and right Big toe amputation. Presented with severe hypernatremia and dehydration. Physical Exam Vital Signs: Temp Pulse Resp BP Pulse Ox 98.2 F 61 18 79/52 L 97 07/14/17 15:25 07/14/17 15:25 07/14/17 15:25 07/14/17 15:25 07/14/17 15:25 Intake & Output 07/13/17 07/14/17 07/15/17 06:59 06:59 06:59 Intake Total 51902 19290 3180 Output Total 87970 8800 2400 Balance -1728 8316 780 Weight 82.5 kg 86.5 kg Additional comments: Elderly -[place] gentleman lying in bed not in acute distress Lungs: Scattered rhonchi no wheezing or crackles Cardiac: S1-S2 regular no murmurs heard no peripheral edema he has a left BKA and right big toe amputation Abdomen: Soft, no focal tenderness, PEG tube present Results Laboratory Results: 07/14/17 00:43 07/14/17 05:36 07/12/17 07/14/17 07/14/17 06:48 00:43 05:36 WBC 4.7 RBC 3.09 L Hgb 8.2 L Hct 25.9 L MCV 84 MCH 26.5 L MCHC 31.7 L RDW 20.4 H Plt Count 50 L Sodium Potassium Chloride Carbon Dioxide Anion Gap BUN Creatinine Est GFR ( Amer) Est GFR (Non-Af Amer) Glucose Calcium Magnesium 2.0 Albumin Blood Type B POSITIVE Antibody Screen NEGATIVE 07/14/17 07/14/17 05:36 05:36 WBC RBC Hgb Hct MCV MCH MCHC RDW Plt Count Sodium 159.6 H Potassium 2.7 L* Chloride 119 H Carbon Dioxide 19 L Anion Gap 22 H BUN 54 H Creatinine 2.49 H Est GFR ( Amer) 31 L Est GFR (Non-Af Amer) 25 L Glucose 165 H Calcium 6.6 L* Magnesium Albumin 2.0 L Blood Type Antibody Screen Impressions: Guidance Fluoroscopy 07/09/17 00:00 IMPRESSION: SUCCESSFUL PLACEMENT OF A 5 FR DUAL LUMEN 43 CM PICC IN THE LEFT BASILIC VEIN. Interventional Vascular Procedure 07/09/17 00:00 IMPRESSION: SUCCESSFUL PLACEMENT OF A 5 FR DUAL LUMEN 43 CM PICC IN THE LEFT BASILIC VEIN. PICC Line Insertion 07/09/17 00:00 IMPRESSION: SUCCESSFUL PLACEMENT OF A 5 FR DUAL LUMEN 43 CM PICC IN THE LEFT BASILIC VEIN. Renal Ultrasound 07/14/17 00:00 IMPRESSION: 1. Bilateral moderate hydronephrosis, limited assessment. No hydronephrosis noted on May study. CT scan may help to further assess etiology for obstruction. Assessment & Plan - Diagnosis (2) Hypernatremia Is this a current diagnosis for this admission?: Yes (3) Hypokalemia Is this a current diagnosis for this admission?: Yes (4) ARF (acute renal failure) Qualifiers: Is this a current diagnosis for this admission?: Yes (5) CVA (cerebral vascular accident) Qualifiers: CVA mechanism: unspecified Qualified Code(s): I63.9 - Cerebral infarction, unspecified Is this a current diagnosis for this admission?: Yes - Time Time Spent with patient: 25-34 minutes - Plan Summary Plan Summary: Continue IV fluids. Continue tube feeds. Monitor electrolytes.
[2017-07-14] MEDS: LATANOPROST 0.005% OPH SOLN 2.5 ML OU SCH (21:49)
[2017-07-14] MEDS: DOXAZOSIN MESYLATE 2 MG TABLET PEG SCH (21:59)
[2017-07-15] MEDS: INSULIN LISPRO 100 UNIT/ML 3 ML VIAL SUBCUT PRN ×3 (02:15→11:38)
[2017-07-15] MEDS: PIPERACILLIN SODIUM/TAZOBACTAM 3.375 GM in NORMAL SALINE 100 ML IV SCH ×3 (05:42→18:15)
[2017-07-15] MEDS: CARVEDILOL 12.5 MG TABLET PEG SCH ×2 (11:19→22:01)
[2017-07-15] MEDS: LACTOBACILLUS ACIDOPHILUS 250 MG TAB PEG SCH ×2 (11:19→18:15)
[2017-07-15] MEDS: LANSOPRAZOLE 30 MG TAB.RAP.DR PEG SCH ×2 (11:19→18:15)
[2017-07-15] MEDS: FERROUS SULFATE LIQUID 300 MG/5 ML UDC PEG SCH ×2 (11:20→18:14)
[2017-07-15] MEDS: POTASSIUM CHLORIDE 20 MEQ/15 ML UDCUP PO SCH ×2 (11:20→22:01)
[2017-07-15] MEDS: FINASTERIDE 5 MG TABLET PO SCH (11:20)
[2017-07-15] MEDS: ASCORBIC ACID 500 MG TABLET PEG SCH ×3 (11:20→18:17)
[2017-07-15] MEDS: FOLIC ACID 1 MG TABLET PEG SCH (11:20)
[2017-07-15] MEDS: CHOLESTYRAMINE/ASPARTAME 4 GM PACKET PEG SCH ×4 (11:21→22:01)
[2017-07-15] MEDS: MULTIVITS W-MIN/IRON SOLN 60 ML PEG SCH (11:22)
[2017-07-15] MEDS: NORMAL SALINE 10 ML SDV (SCHEDULED) IV SCH ×2 (11:23→22:06)
[2017-07-15] MEDS: POLYETHYLENE GLYCOL 3350 POWDER 17 GM/1 PACKET PEG SCH (11:24)
[2017-07-15] MEDS: DEXTROSE 5%-WATER 1000 ML 1,000 ML IV PRN (11:41)
[2017-07-15 16:20] LABS: HEMATOCRIT 27.8 % (37.9-51.0); HEMOGLOBIN 9.2 g/dL (13.5-17.0); MEAN CORPUSCULAR HEMOGLOBIN 26.9 pg (27.0-33.4); MEAN CORPUSCULAR HGB CONC 33.1 g/dL (32.0-36.0); MEAN CORPUSCULAR VOLUME 81 fl (80-97); RED BLOOD COUNT 3.42 10^6/uL (4.35-5.55); RED CELL DISTRIBUTION WIDTH 20.2 % (11.5-14.0)
[2017-07-15 16:36] LABS: ANION GAP 8 (5-19); BLOOD UREA NITROGEN 62 mg/dL (7-20); CALCIUM 7.9 mg/dL (8.4-10.2); CARBON DIOXIDE 22 mmol/L (22-30); CHLORIDE 111 mmol/L (98-107); GLUCOSE 143 mg/dL (75-110); MAGNESIUM 2.5 mg/dL (1.6-2.3); PHOSPHORUS 5.6 mg/dL (2.5-4.5); POTASSIUM 4.5 mmol/L (3.6-5.0); SODIUM 140.7 mmol/L (137-145)
[2017-07-15 17:00] LABS: PLATELET COUNT 55 10^3/uL (150-450)
--- NOTE | 2017-07-15 17:19 | PDOC PROGRESS REPORT ---
Subjective Progress Note for:: 07/15/17 Subjective:: 76 yr old patient who is nonverbal and bedbound from prior stroke has a chronic Catalan and a PEG left BKA and right Big toe amputation. He presented with severe hypernatremia and dehydration. Reason For Visit: HYPERNATREMIA,AMS Physical Exam Vital Signs: Temp Pulse Resp BP Pulse Ox 98.4 F 65 20 109/51 L 100 07/15/17 15:21 07/15/17 15:21 07/15/17 15:21 07/15/17 15:21 07/15/17 15:21 Intake & Output 07/14/17 07/15/17 07/16/17 06:59 06:59 06:59 Intake Total 88304 60865 Output Total 8800 10430 3350 Balance 8316 -9111 -3350 Weight 86.5 kg 87.6 kg Additional comments: Elderly -Russian gentleman lying in bed, appears comfortable Lungs: Normal effort, Scattered rhonchi no wheezing or crackles Cardiac: S1-S2 regular no murmurs heard no peripheral edema he has a left BKA and right big toe amputation Abdomen: Soft, no focal tenderness, PEG tube present Catalan present, CBI shows dark brownish urine, no mookie blood Results Laboratory Results: 07/15/17 16:05 07/15/17 16:05 07/15/17 07/15/17 16:05 16:05 WBC 5.0 RBC 3.42 L Hgb 9.2 L Hct 27.8 L MCV 81 MCH 26.9 L MCHC 33.1 RDW 20.2 H Plt Count 55 L Sodium 140.7 Potassium 4.5 Chloride 111 H Carbon Dioxide 22 Anion Gap 8 BUN 62 H Creatinine 2.83 H Est GFR ( Amer) 26 L Est GFR (Non-Af Amer) 22 L Glucose 143 H Calcium 7.9 L Phosphorus 5.6 H Magnesium 2.5 H Impressions: Guidance Fluoroscopy 07/09/17 00:00 IMPRESSION: SUCCESSFUL PLACEMENT OF A 5 FR DUAL LUMEN 43 CM PICC IN THE LEFT BASILIC VEIN. Interventional Vascular Procedure 07/09/17 00:00 IMPRESSION: SUCCESSFUL PLACEMENT OF A 5 FR DUAL LUMEN 43 CM PICC IN THE LEFT BASILIC VEIN. PICC Line Insertion 07/09/17 00:00 IMPRESSION: SUCCESSFUL PLACEMENT OF A 5 FR DUAL LUMEN 43 CM PICC IN THE LEFT BASILIC VEIN. Renal Ultrasound 07/14/17 00:00 IMPRESSION: 1. Bilateral moderate hydronephrosis, limited assessment. No hydronephrosis noted on May study. CT scan may help to further assess etiology for obstruction. Assessment & Plan - Diagnosis (2) Hypernatremia Is this a current diagnosis for this admission?: Yes (3) Hypokalemia Is this a current diagnosis for this admission?: Yes (4) ARF (acute renal failure) Qualifiers: Is this a current diagnosis for this admission?: Yes (5) CVA (cerebral vascular accident) Qualifiers: CVA mechanism: unspecified Qualified Code(s): I63.9 - Cerebral infarction, unspecified Is this a current diagnosis for this admission?: Yes - Time Time Spent with patient: 25-34 minutes - Plan Summary Plan Summary: Continue CBI Hypernatremia due to dehydration is improving. Continue tube feeds.
[2017-07-15] MEDS ORDERED: FUROSEMIDE INJ/PF 40 MG/4 ML SDV IV ONE (20:42)
[2017-07-15] MEDS ORDERED: FUROSEMIDE INJ/PF 20 MG/2 ML SDV ONE (20:50)
[2017-07-15 21:28] LABS: ALANINE AMINOTRANSFERASE 33 U/L (21-72); ALBUMIN 2.4 g/dL (3.5-5.0); ALKALINE PHOSPHATASE 67 U/L (38-126); ANION GAP 8 (5-19); ASPARTATE AMINO TRANSFERASE 33 U/L (17-59); BILIRUBIN,DIRECT 0.1 mg/dL (0.0-0.4); BILIRUBIN,TOTAL 0.1 mg/dL (0.2-1.3); BLOOD UREA NITROGEN 62 mg/dL (7-20); CALCIUM 7.9 mg/dL (8.4-10.2); CARBON DIOXIDE 22 mmol/L (22-30); CHLORIDE 111 mmol/L (98-107); GLUCOSE 164 mg/dL (75-110); MAGNESIUM 2.5 mg/dL (1.6-2.3); POTASSIUM 4.5 mmol/L (3.6-5.0); SODIUM 140.8 mmol/L (137-145); TOTAL PROTEIN 5.7 g/dL (6.3-8.2)
[2017-07-15] MEDS ORDERED: FUROSEMIDE INJ/PF 100 MG/10 ML SDV IV ONE (21:30)
[2017-07-15] MEDS ORDERED: SODIUM CHLORIDE 3% 500 ML IV ONE (22:00)
[2017-07-15] MEDS: LATANOPROST 0.005% OPH SOLN 2.5 ML OU SCH (22:03)
[2017-07-15] MEDS: DOXAZOSIN MESYLATE 2 MG TABLET PEG SCH (22:05)
[2017-07-16] MEDS: PIPERACILLIN SODIUM/TAZOBACTAM 3.375 GM in NORMAL SALINE 100 ML IV SCH ×2 (00:24→05:44)
[2017-07-16 00:46] LABS: ANION GAP 10 (5-19); BLOOD UREA NITROGEN 55 mg/dL (7-20); CARBON DIOXIDE 19 mmol/L (22-30); CHLORIDE 140 mmol/L (98-107); GLUCOSE 167 mg/dL (75-110); POTASSIUM 4.3 mmol/L (3.6-5.0)
[2017-07-16] MEDS: INSULIN LISPRO 100 UNIT/ML 3 ML VIAL SUBCUT PRN ×2 (00:49→17:57)
[2017-07-16 01:10] LABS: CALCIUM 6.8 mg/dL (8.4-10.2); SODIUM 169.2 mmol/L (137-145)
[2017-07-16 01:53] LABS: ALANINE AMINOTRANSFERASE 39 U/L (21-72); ALBUMIN 2.2 g/dL (3.5-5.0); ALKALINE PHOSPHATASE 59 U/L (38-126); ANION GAP 8 (5-19); ASPARTATE AMINO TRANSFERASE 28 U/L (17-59); BILIRUBIN,DIRECT 0.2 mg/dL (0.0-0.4); BILIRUBIN,TOTAL 0.2 mg/dL (0.2-1.3); BLOOD UREA NITROGEN 60 mg/dL (7-20); CALCIUM 7.8 mg/dL (8.4-10.2); CARBON DIOXIDE 22 mmol/L (22-30); CHLORIDE 116 mmol/L (98-107); GLUCOSE 174 mg/dL (75-110); POTASSIUM 4.8 mmol/L (3.6-5.0); TOTAL PROTEIN 5.3 g/dL (6.3-8.2)
[2017-07-16 05:58] LABS: HEMATOCRIT 23.6 % (37.9-51.0); MEAN CORPUSCULAR HEMOGLOBIN 26.7 pg (27.0-33.4); MEAN CORPUSCULAR HGB CONC 32.7 g/dL (32.0-36.0); MEAN CORPUSCULAR VOLUME 82 fl (80-97); RED BLOOD COUNT 2.89 10^6/uL (4.35-5.55); RED CELL DISTRIBUTION WIDTH 20.8 % (11.5-14.0); WHITE BLOOD COUNT 4.8 10^3/uL (4.0-10.5)
[2017-07-16 06:00] LABS: ALANINE AMINOTRANSFERASE 38 U/L (21-72); ALBUMIN 2.1 g/dL (3.5-5.0); ALKALINE PHOSPHATASE 58 U/L (38-126); ANION GAP 7 (5-19); ASPARTATE AMINO TRANSFERASE 28 U/L (17-59); BILIRUBIN,DIRECT 0.1 mg/dL (0.0-0.4); BILIRUBIN,TOTAL 0.1 mg/dL (0.2-1.3); BLOOD UREA NITROGEN 61 mg/dL (7-20); CALCIUM 7.8 mg/dL (8.4-10.2); CARBON DIOXIDE 23 mmol/L (22-30); CHLORIDE 119 mmol/L (98-107); GLUCOSE 133 mg/dL (75-110); POTASSIUM 4.7 mmol/L (3.6-5.0); SODIUM 148.6 mmol/L (137-145); TOTAL PROTEIN 5.2 g/dL (6.3-8.2)
[2017-07-16 06:31] LABS: PLATELET COUNT 50 10^3/uL (150-450)
[2017-07-16 06:33] LABS: HEMOGLOBIN 7.7 g/dL (13.5-17.0)
[2017-07-16] MEDS: FOLIC ACID 1 MG TABLET PEG SCH (10:50)
[2017-07-16] MEDS: CARVEDILOL 12.5 MG TABLET PEG SCH ×2 (10:50→21:30)
[2017-07-16] MEDS: ASCORBIC ACID 500 MG TABLET PEG SCH ×3 (10:51→17:57)
[2017-07-16] MEDS: FINASTERIDE 5 MG TABLET PO SCH (10:51)
[2017-07-16] MEDS: CHOLESTYRAMINE/ASPARTAME 4 GM PACKET PEG SCH ×4 (10:51→21:28)
[2017-07-16] MEDS: LANSOPRAZOLE 30 MG TAB.RAP.DR PEG SCH ×2 (10:51→17:57)
[2017-07-16] MEDS: MULTIVITS W-MIN/IRON SOLN 60 ML PEG SCH (10:52)
[2017-07-16] MEDS: LACTOBACILLUS ACIDOPHILUS 250 MG TAB PEG SCH ×2 (10:52→17:57)
[2017-07-16] MEDS: FERROUS SULFATE LIQUID 300 MG/5 ML UDC PEG SCH ×2 (10:52→17:56)
[2017-07-16] MEDS: POLYETHYLENE GLYCOL 3350 POWDER 17 GM/1 PACKET PEG SCH (11:39)
[2017-07-16] MEDS: NORMAL SALINE 10 ML SDV (SCHEDULED) IV SCH ×2 (11:39→21:28)
[2017-07-16 14:17] LABS: ANION GAP 5 (5-19); BLOOD UREA NITROGEN 64 mg/dL (7-20); CALCIUM 7.9 mg/dL (8.4-10.2); CARBON DIOXIDE 22 mmol/L (22-30); CHLORIDE 120 mmol/L (98-107); GLUCOSE 169 mg/dL (75-110); MAGNESIUM 2.5 mg/dL (1.6-2.3); POTASSIUM 4.6 mmol/L (3.6-5.0); SODIUM 147.2 mmol/L (137-145)
--- NOTE | 2017-07-16 17:54 | PDOC PROGRESS REPORT ---
Subjective Progress Note for:: 07/16/17 Subjective:: 76 yr old gentleman with past medical history of Dementia Prior stroke, bedbound and aphasic Aspiration risk PEG tube Coronary artery disease CHF with left ventricular ejection fraction of 40% Hypertension Hyperlipidemia Peripheral vascular disease Left BKA Right great toe amputation Chronic indwelling Catalan catheter Diabetes Lives in a long term facility. He presented to the hospital on July 09 with hyponatremia, acute renal failure and hematuria. He has been on continuous bladder irrigation. It was felt that the hematuria was secondary to Actalan trauma. Antiplatelet agents were discontinued. A urology consult was requested although I do not see any documentation of this in the chart. He was reportedly given Tranexamic acid that helped with the hematuria, but it restarted again. Given 3 sets of packed red blood cells. Urine culture grew enterococcus faecalis and today is day 7 of Zosyn. Renal ultrasound showed bilateral moderate hydronephrosis which is new compared to a study in May. His baseline creatinine Was normal. Reason For Visit: HYPERNATREMIA,AMS Physical Exam Vital Signs: Temp Pulse Resp BP Pulse Ox 99.6 F 72 18 102/51 L 94 07/16/17 07:37 07/16/17 07:37 07/16/17 07:37 07/16/17 07:37 07/16/17 07:37 Intake & Output 07/15/17 07/16/17 07/17/17 06:59 06:59 06:59 Intake Total 32384 05075 Output Total 73331 25567 Balance -1409 -44589 Weight 87.6 kg 90.5 kg Additional comments: Elderly -[place] gentleman lying in bed, not in acute distress Lungs: Normal effort, Scattered rhonchi no wheezing or crackles Cardiac: S1-S2 regular no murmurs heard no peripheral edema he has a left BKA and right big toe amputation Abdomen: Soft, no focal tenderness, PEG tube present Catalan present, CBI shows dark brownish urine, no mookie blood Results Laboratory Results: 07/16/17 05:40 07/16/17 05:20 07/15/17 07/15/17 07/15/17 16:05 16:05 20:45 WBC 5.0 RBC 3.42 L Hgb 9.2 L Hct 27.8 L MCV 81 MCH 26.9 L MCHC 33.1 RDW 20.2 H Plt Count 55 L Sodium 140.7 140.8 Potassium 4.5 4.5 Chloride 111 H 111 H Carbon Dioxide 22 22 Anion Gap 8 8 BUN 62 H 62 H Creatinine 2.83 H 2.81 H Est GFR ( Amer) 26 L 27 L Est GFR (Non-Af Amer) 22 L 22 L Glucose 143 H 164 H Calcium 7.9 L 7.9 L Phosphorus 5.6 H Magnesium 2.5 H 2.5 H Total Bilirubin 0.1 L AST 33 ALT 33 Alkaline Phosphatase 67 Total Protein 5.7 L Albumin 2.4 L 07/15/17 07/16/17 07/16/17 20:45 00:15 01:20 WBC RBC Hgb Hct MCV MCH MCHC RDW Plt Count Sodium 169.2 H* D 146.0 H Potassium 4.3 4.8 Chloride 140 H 116 H Carbon Dioxide 19 L 22 Anion Gap 10 8 BUN 55 H 60 H Creatinine 2.48 H 2.82 H Est GFR ( Amer) 31 L 27 L Est GFR (Non-Af Amer) 25 L 22 L Glucose 167 H 174 H Calcium 6.8 L* 7.8 L Phosphorus Magnesium Cancelled Total Bilirubin 0.2 AST 28 ALT 39 Alkaline Phosphatase 59 Total Protein 5.3 L Albumin 2.4 L 2.2 L 07/16/17 07/16/17 05:20 05:40 WBC 4.8 RBC 2.89 L Hgb 7.7 L Hct 23.6 L MCV 82 MCH 26.7 L MCHC 32.7 RDW 20.8 H Plt Count 50 L Sodium 148.6 H Potassium 4.7 Chloride 119 H Carbon Dioxide 23 Anion Gap 7 BUN 61 H Creatinine 2.78 H Est GFR ( Amer) 27 L Est GFR (Non-Af Amer) 22 L Glucose 133 H Calcium 7.8 L Phosphorus Magnesium Total Bilirubin 0.1 L AST 28 ALT 38 Alkaline Phosphatase 58 Total Protein 5.2 L Albumin 2.1 L Impressions: Guidance Fluoroscopy 07/09/17 00:00 IMPRESSION: SUCCESSFUL PLACEMENT OF A 5 FR DUAL LUMEN 43 CM PICC IN THE LEFT BASILIC VEIN. Interventional Vascular Procedure 07/09/17 00:00 IMPRESSION: SUCCESSFUL PLACEMENT OF A 5 FR DUAL LUMEN 43 CM PICC IN THE LEFT BASILIC VEIN. PICC Line Insertion 07/09/17 00:00 IMPRESSION: SUCCESSFUL PLACEMENT OF A 5 FR DUAL LUMEN 43 CM PICC IN THE LEFT BASILIC VEIN. Renal Ultrasound 07/14/17 00:00 IMPRESSION: 1. Bilateral moderate hydronephrosis, limited assessment. No hydronephrosis noted on May study. CT scan may help to further assess etiology for obstruction. Assessment & Plan - Diagnosis (2) Hypernatremia Is this a current diagnosis for this admission?: Yes (3) Hypokalemia Is this a current diagnosis for this admission?: Yes (4) ARF (acute renal failure) Qualifiers: Is this a current diagnosis for this admission?: Yes (5) CVA (cerebral vascular accident) Qualifiers: CVA mechanism: unspecified Qualified Code(s): I63.9 - Cerebral infarction, unspecified Is this a current diagnosis for this admission?: Yes - Time Time Spent with patient: 25-34 minutes - Plan Summary Plan Summary: Continue CBI Hypernatremia due to dehydration is improving. Continue tube feeds. CT abdomen ordered to follow up on hydronephrosis.
[2017-07-16] MEDS: LATANOPROST 0.005% OPH SOLN 2.5 ML OU SCH (21:28)
[2017-07-16] MEDS: DOXAZOSIN MESYLATE 2 MG TABLET PEG SCH (21:29)
[2017-07-17] MEDS: INSULIN LISPRO 100 UNIT/ML 3 ML VIAL SUBCUT PRN ×2 (00:41→06:24)
[2017-07-17] MEDS: POLYETHYLENE GLYCOL 3350 POWDER 17 GM/1 PACKET PEG SCH (11:21)
[2017-07-17] MEDS: LANSOPRAZOLE 30 MG TAB.RAP.DR PEG SCH ×2 (11:25→21:25)
[2017-07-17] MEDS: ASCORBIC ACID 500 MG TABLET PEG SCH ×3 (11:25→21:25)
[2017-07-17] MEDS: CARVEDILOL 12.5 MG TABLET PEG SCH ×2 (11:26→21:25)
[2017-07-17] MEDS: FINASTERIDE 5 MG TABLET PO SCH (11:26)
[2017-07-17] MEDS: FOLIC ACID 1 MG TABLET PEG SCH (11:26)
[2017-07-17] MEDS: LACTOBACILLUS ACIDOPHILUS 250 MG TAB PEG SCH ×2 (11:26→21:25)
[2017-07-17] MEDS: CHOLESTYRAMINE/ASPARTAME 4 GM PACKET PEG SCH ×4 (11:27→21:25)
[2017-07-17] MEDS: MULTIVITS W-MIN/IRON SOLN 60 ML PEG SCH (11:27)
[2017-07-17] MEDS: NORMAL SALINE 10 ML SDV (SCHEDULED) IV SCH ×2 (11:30→21:25)
[2017-07-17] MEDS: FERROUS SULFATE LIQUID 300 MG/5 ML UDC PEG SCH ×2 (11:31→21:24)
[2017-07-17 14:42] LABS: ANION GAP 6 (5-19); BLOOD UREA NITROGEN 59 mg/dL (7-20); CALCIUM 8.4 mg/dL (8.4-10.2); CARBON DIOXIDE 24 mmol/L (22-30); CHLORIDE 120 mmol/L (98-107); GLUCOSE 127 mg/dL (75-110); MAGNESIUM 2.6 mg/dL (1.6-2.3); PHOSPHORUS 4.6 mg/dL (2.5-4.5); SODIUM 150.3 mmol/L (137-145)
--- NOTE | 2017-07-17 15:10 | PDOC PROGRESS REPORT ---
Subjective Progress Note for:: 07/17/17 Subjective:: 76 yr old gentleman with past medical history of Dementia Prior stroke, bedbound and aphasic Aspiration risk PEG tube Coronary artery disease CHF with left ventricular ejection fraction of 40% Hypertension Hyperlipidemia Peripheral vascular disease Left BKA Right great toe amputation Chronic indwelling Catalan catheter Diabetes Lives in a detention facility. He presented to the hospital on July 09 with hyponatremia, acute renal failure and hematuria. He has been on continuous bladder irrigation. It was felt that the hematuria was secondary to Catalan trauma. Antiplatelet agents were discontinued. A urology consult was requested although I do not see any documentation of this in the chart. He was reportedly given Tranexamic acid that helped with the hematuria, but it restarted again. He was given 3 sets of packed red blood cells. Urine culture grew enterococcus faecalis and today is day 8 of 10 of Zosyn. Renal ultrasound showed bilateral moderate hydronephrosis which is new compared to a study in May. CT abdomen and pelvis is pending. Hyponatremia and renal function are slowly improving. His baseline creatinine was normal. He continues to be on CBI which has been mostly clear but has had clots intermittently. Reason For Visit: HYPERNATREMIA,AMS Physical Exam Vital Signs: Temp Pulse Resp BP Pulse Ox 98.7 F 104 H 21 H 113/79 95 07/17/17 11:47 07/17/17 11:47 07/17/17 11:47 07/17/17 11:47 07/17/17 11:47 Intake & Output 07/16/17 07/17/17 07/18/17 06:59 06:59 06:59 Intake Total 48333 97341 509 Output Total 02393 34879 6405 Balance -21084 -2490 -5891 Weight 90.5 kg 87.4 kg Additional comments: Elderly -[place] gentleman lying in bed, not in acute distress Lungs: Normal respiratory effort, clear to auscultation bilaterally Cardiac: S1-S2 regular no murmurs heard no peripheral edema he has a left BKA and right big toe amputation Abdomen: Soft, no focal tenderness, PEG tube present Catalan present, CBI shows dark brownish urine, no mookie blood Results Laboratory Results: 07/16/17 05:40 07/17/17 14:00 07/17/17 14:00 Sodium 150.3 H Potassium 5.0 Chloride 120 H Carbon Dioxide 24 Anion Gap 6 BUN 59 H Creatinine 2.06 H Est GFR ( Amer) 38 L Est GFR (Non-Af Amer) 32 L Glucose 127 H Calcium 8.4 Phosphorus 4.6 H Magnesium 2.6 H 07/14/17 11:20 Stool - Stool Clostridium difficile Toxin A&B (M) - Final Impressions: Guidance Fluoroscopy 07/09/17 00:00 IMPRESSION: SUCCESSFUL PLACEMENT OF A 5 FR DUAL LUMEN 43 CM PICC IN THE LEFT BASILIC VEIN. Interventional Vascular Procedure 07/09/17 00:00 IMPRESSION: SUCCESSFUL PLACEMENT OF A 5 FR DUAL LUMEN 43 CM PICC IN THE LEFT BASILIC VEIN. PICC Line Insertion 07/09/17 00:00 IMPRESSION: SUCCESSFUL PLACEMENT OF A 5 FR DUAL LUMEN 43 CM PICC IN THE LEFT BASILIC VEIN. Renal Ultrasound 07/14/17 00:00 IMPRESSION: 1. Bilateral moderate hydronephrosis, limited assessment. No hydronephrosis noted on May study. CT scan may help to further assess etiology for obstruction. Assessment & Plan - Diagnosis (2) Hypernatremia Is this a current diagnosis for this admission?: Yes (3) Hypokalemia Is this a current diagnosis for this admission?: Yes (4) ARF (acute renal failure) Qualifiers: Is this a current diagnosis for this admission?: Yes (5) CVA (cerebral vascular accident) Qualifiers: CVA mechanism: unspecified Qualified Code(s): I63.9 - Cerebral infarction, unspecified Is this a current diagnosis for this admission?: Yes - Time Time Spent with patient: 25-34 minutes - Plan Summary Plan Summary: Continue CBI for hematuria. He will need a urology evaluation. Continue to monitor renal function and hypernatremia. Continue tube feeds. CT abdomen ordered to follow up on hydronephrosis.
[2017-07-17] MEDS: LORAZEPAM INJ 2 MG/1 ML VIAL IV PRN (16:27)
--- NOTE | 2017-07-17 16:45 | RADIOLOGY REPORT (SQ) ---
EXAM DESCRIPTION: CHEST SINGLE VIEW COMPLETED DATE/TIME: 07/17/2017 4:35 pm REASON FOR STUDY: Dyspnea COMPARISON: 05/27/2017. EXAM PARAMETERS: NUMBER OF VIEWS: One view. TECHNIQUE: Single frontal radiographic view of the chest acquired. RADIATION DOSE: NA LIMITATIONS: None. FINDINGS: LUNGS AND PLEURA: No opacities, masses or pneumothorax. No pleural effusion. MEDIASTINUM AND HILAR STRUCTURES: No masses. Contour normal. HEART AND VASCULAR STRUCTURES: Heart upper limits of normal in size. Normal vasculature. BONES: No acute findings. HARDWARE: Defibrillator. OTHER: No other significant finding. IMPRESSION: NO ACUTE RADIOGRAPHIC FINDING IN THE CHEST. TECHNICAL DOCUMENTATION: JOB ID: [id number] [employer]- All Rights Reserved
--- NOTE | 2017-07-17 18:09 | RADIOLOGY REPORT (SQ) ---
EXAM DESCRIPTION: CT ABD/PELVIS NO ORAL OR IV COMPLETED DATE/TIME: 07/17/2017 5:35 pm REASON FOR STUDY: hydronephrosis COMPARISON: 01/31/2017 TECHNIQUE: CT scan of the abdomen and pelvis performed without intravenous or oral contrast. Images reviewed with lung, soft tissue, and bone windows. Reconstructed coronal and sagittal MPR images revi ewed. All images stored on PACS. All CT scanners at this facility use dose modulation, iterative reconstruction, and/or weight based d osing when appropriate to reduce radiation dose to as low as reasonably achievable (ALARA). [facility]: Dose Right [facility]: CareDose [facility]: Dose Right [facility]: Teradose 4D [facility]: Smart AstroloMe RADIATION DOSE: mGy. LIMITATIONS: None. FINDINGS: LOWER CHEST: Bilateral pleural effusions with basilar opacities left greater than right. NON-CONTRASTED LIVER, SPLEEN, ADRENALS: Evaluation limited by lack of IV contrast. No identified sign ificant masses. PANCREAS: No masses. No peripancreatic inflammatory changes. GALLBLADDER: No identified stones by CT criteria. No inflammatory changes to suggest cholecystitis. RIGHT KIDNEY AND URETER: No suspicious masses. Assessment limited by lack of IV contrast. No signif icant calcifications. Mild hydronephrosis and hydroureter. Less marked than on the study of 017. Similar to recent ultrasound. LEFT KIDNEY AND URETER: No suspicious masses. Assessment limited by lack of IV contrast. No signifi cant calcifications. Mild hydronephrosis and hydroureter similar to recent ultrasound. Less severe than in January. AORTA AND RETROPERITONEUM: No aneurysm. No retroperitoneal masses or adenopathy. BOWEL AND PERITONEAL CAVITY: No obvious masses or inflammatory changes. No free fluid. Gastrostomy c atheter. APPENDIX: Not visualized. PELVIS, BLADDER, AND ABDOMINAL WALL:Moderate thick-walled. Indwelling Catalan catheter. There is exte nsive heterogeneous but somewhat dense material within the bladder. This is most likely hemorrhage. Based on prior study suspect underlying tumor. BONES: No significant findings. OTHER: No other significant finding. IMPRESSION: Bilateral hydronephrosis and hydroureter similar to the recent ultrasound but not as sev ere CT in January There is extensive heterogeneous but somewhat generally dense material within the bladder with thicke cristian of the bladder wall. Most likely hemorrhage. Based on previous CT there is underlying tumor as well. Indwelling Catalan catheter. Bilateral pleural effusions with basilar opacities left greater than right. COMMENT: Quality ID # [id number]: Final reports with documentation of one or more dose reduction techniques (e.g., Automated exposure control, adjustment of the mA and/or kV according to patient size, use of iterative reconstruction technique) TECHNICAL DOCUMENTATION: JOB ID: [id number] [employer]- All Rights Reserved
[2017-07-17] MEDS: DOXAZOSIN MESYLATE 2 MG TABLET PEG SCH (21:25)
[2017-07-17] MEDS: PIPERACILLIN SODIUM/TAZOBACTAM 3.375 GM in NORMAL SALINE 100 ML IV SCH ×2 (21:26→23:44)
[2017-07-17] MEDS: LATANOPROST 0.005% OPH SOLN 2.5 ML OU SCH (21:26)
[2017-07-18] MEDS: PIPERACILLIN SODIUM/TAZOBACTAM 3.375 GM in NORMAL SALINE 100 ML IV SCH ×4 (05:07→23:42)
[2017-07-18 05:31] LABS: HEMATOCRIT 22.2 % (37.9-51.0); MEAN CORPUSCULAR HEMOGLOBIN 26.7 pg (27.0-33.4); MEAN CORPUSCULAR HGB CONC 32.5 g/dL (32.0-36.0); MEAN CORPUSCULAR VOLUME 82 fl (80-97); RED BLOOD COUNT 2.71 10^6/uL (4.35-5.55); RED CELL DISTRIBUTION WIDTH 21.7 % (11.5-14.0); WHITE BLOOD COUNT 4.9 10^3/uL (4.0-10.5)
[2017-07-18 05:45] LABS: ANION GAP 7 (5-19); BLOOD UREA NITROGEN 57 mg/dL (7-20); CALCIUM 8.2 mg/dL (8.4-10.2); CARBON DIOXIDE 23 mmol/L (22-30); CHLORIDE 118 mmol/L (98-107); GLUCOSE 183 mg/dL (75-110); MAGNESIUM 2.5 mg/dL (1.6-2.3); PHOSPHORUS 3.8 mg/dL (2.5-4.5); POTASSIUM 5.3 mmol/L (3.6-5.0); SODIUM 148.3 mmol/L (137-145)
[2017-07-18 05:57] LABS: HEMOGLOBIN 7.2 g/dL (13.5-17.0)
[2017-07-18 05:58] LABS: PLATELET COUNT 60 10^3/uL (150-450)
[2017-07-18] MEDS: CHOLESTYRAMINE/ASPARTAME 4 GM PACKET PEG SCH (09:10)
[2017-07-18] MEDS ORDERED: NORMAL SALINE 250 ML IV PRN (09:14)
[2017-07-18] MEDS: FINASTERIDE 5 MG TABLET PO SCH (10:45)
[2017-07-18] MEDS: FERROUS SULFATE LIQUID 300 MG/5 ML UDC PEG SCH ×2 (10:45→18:35)
[2017-07-18] MEDS: FOLIC ACID 1 MG TABLET PEG SCH (10:46)
[2017-07-18] MEDS: ASCORBIC ACID 500 MG TABLET PEG SCH ×3 (10:46→18:36)
[2017-07-18] MEDS: CARVEDILOL 12.5 MG TABLET PEG SCH ×2 (10:46→23:46)
[2017-07-18] MEDS: LANSOPRAZOLE 30 MG TAB.RAP.DR PEG SCH ×2 (10:47→18:42)
[2017-07-18] MEDS: LACTOBACILLUS ACIDOPHILUS 250 MG TAB PEG SCH ×2 (10:47→18:35)
[2017-07-18] MEDS: MULTIVITS W-MIN/IRON SOLN 60 ML PEG SCH (10:48)
[2017-07-18] MEDS: NORMAL SALINE 10 ML SDV (SCHEDULED) IV SCH ×2 (10:48→23:48)
--- NOTE | 2017-07-18 15:16 | PDOC PROGRESS REPORT ---
Subjective Progress Note for:: 07/18/17 Subjective:: 76 yr old gentleman with past medical history of Dementia Prior stroke, bedbound and aphasic Aspiration risk PEG tube Coronary artery disease CHF with left ventricular ejection fraction of 40% Hypertension Hyperlipidemia Peripheral vascular disease Left BKA Right great toe amputation Chronic indwelling Catalan catheter Diabetes Lives in a detention facility. He presented to the hospital on July 09 with hyponatremia, acute renal failure and hematuria. He has been on continuous bladder irrigation. It was felt that the hematuria was secondary to Catalan trauma. Antiplatelet agents were discontinued. A urology consult was requested although I do not see any documentation of this in the chart. He was reportedly given Tranexamic acid that helped with the hematuria, but it restarted again. He was given 3 sets of packed red blood cells. Urine culture grew enterococcus faecalis and today is day 8 of 10 of Zosyn. Renal ultrasound showed bilateral moderate hydronephrosis which is new compared to a study in May. CT abdomen and pelvis is pending. Hyponatremia and renal function are slowly improving. He continues to be on CBI which has been mostly clear but has had clots intermittently. Discussed his case with Dr. Newton, urologist telephonic rn at [facility]. She recommended continuing CBI till we have an in house Urologist which will be on 07/21/17 per hospital cold roll operator. We will give him 2 units of packed red blood cells today. CAT scan of the abdomen and pelvis showed mild bilateral hydronephrosis and hydroureter and thickening of the bladder wall with possible bladder mass. He has some right upper extremity swelling and we will get venous Dopplers. Reason For Visit: HYPERNATREMIA,AMS Physical Exam Vital Signs: Temp Pulse Resp BP Pulse Ox 98.5 F 84 20 110/50 L 100 07/18/17 11:10 07/18/17 11:10 07/18/17 11:10 07/18/17 11:10 07/18/17 11:10 Intake & Output 07/17/17 07/18/17 07/19/17 06:59 06:59 06:59 Intake Total 79878 8241 3841 Output Total 55784 77111 4000 Balance -2490 -3559 -159 Weight 87.4 kg 90.2 kg Additional comments: Elderly -[place] gentleman lying in bed, not in acute distress Lungs: Normal respiratory effort, clear to auscultation bilaterally Cardiac: S1-S2 regular no murmurs heard no peripheral edema he has a left BKA and right big toe amputation, right upper extremity edema. He has a PICC line in the left upper extremity Abdomen: Soft, no focal tenderness, PEG tube present Catalan present, CBI shows dark brownish urine, no mookie blood Results Laboratory Results: 07/18/17 05:14 07/18/17 05:14 07/18/17 07/18/17 07/18/17 05:14 05:14 10:32 WBC 4.9 RBC 2.71 L Hgb 7.2 L Hct 22.2 L MCV 82 MCH 26.7 L MCHC 32.5 RDW 21.7 H Plt Count 60 L Sodium 148.3 H Potassium 5.3 H Chloride 118 H Carbon Dioxide 23 Anion Gap 7 BUN 57 H Creatinine 1.89 H Est GFR ( Amer) 42 L Est GFR (Non-Af Amer) 35 L Glucose 183 H Calcium 8.2 L Phosphorus 3.8 Magnesium 2.5 H Blood Type B POSITIVE Antibody Screen NEGATIVE 07/14/17 11:20 Stool - Stool Clostridium difficile Toxin A&B (M) - Final Impressions: Guidance Fluoroscopy 07/09/17 00:00 IMPRESSION: SUCCESSFUL PLACEMENT OF A 5 FR DUAL LUMEN 43 CM PICC IN THE LEFT BASILIC VEIN. Interventional Vascular Procedure 07/09/17 00:00 IMPRESSION: SUCCESSFUL PLACEMENT OF A 5 FR DUAL LUMEN 43 CM PICC IN THE LEFT BASILIC VEIN. PICC Line Insertion 07/09/17 00:00 IMPRESSION: SUCCESSFUL PLACEMENT OF A 5 FR DUAL LUMEN 43 CM PICC IN THE LEFT BASILIC VEIN. Renal Ultrasound 07/14/17 00:00 IMPRESSION: 1. Bilateral moderate hydronephrosis, limited assessment. No hydronephrosis noted on May study. CT scan may help to further assess etiology for obstruction. Abdomen/Pelvis CT 07/16/17 00:00 IMPRESSION: Bilateral hydronephrosis and hydroureter similar to the recent ultrasound but not as severe CT in January There is extensive heterogeneous but somewhat generally dense material within the bladder with thickening of the bladder wall. Most likely hemorrhage. Based on previous CT there is underlying tumor as well. Indwelling Catalan catheter. Bilateral pleural effusions with basilar opacities left greater than right. Chest X-Ray 07/17/17 00:00 IMPRESSION: NO ACUTE RADIOGRAPHIC FINDING IN THE CHEST. Assessment & Plan - Diagnosis (2) Hypernatremia Is this a current diagnosis for this admission?: Yes (3) Hypokalemia Is this a current diagnosis for this admission?: Yes (4) ARF (acute renal failure) Qualifiers: Is this a current diagnosis for this admission?: Yes (5) CVA (cerebral vascular accident) Qualifiers: CVA mechanism: unspecified Qualified Code(s): I63.9 - Cerebral infarction, unspecified Is this a current diagnosis for this admission?: Yes - Time Time Spent with patient: 35 or more minutes - Plan Summary Plan Summary: Today is day 10 of Zosyn for his enterococcus UTI. Continue CBI. Give him 2 units of blood. IV fluids have been stopped. Continue free water flushes tube feeds. Right upper extremity venous Doppler to rule out DVT. Hypernatremia has resolved.
[2017-07-18] MEDS: NORMAL SALINE 250 ML IV PRN (21:12)
[2017-07-18] MEDS: DOXAZOSIN MESYLATE 2 MG TABLET PEG SCH (23:47)
[2017-07-18] MEDS: LATANOPROST 0.005% OPH SOLN 2.5 ML OU SCH (23:49)
[2017-07-19] MEDS: LORAZEPAM INJ 2 MG/1 ML VIAL IV PRN ×2 (01:44→23:10)
[2017-07-19] MEDS: INSULIN LISPRO 100 UNIT/ML 3 ML VIAL SUBCUT PRN ×2 (03:24→08:51)
[2017-07-19] MEDS ORDERED: NORMAL SALINE 10 ML SDV (AFTER EACH USE) IV PRN (03:38)
[2017-07-19 03:48] LABS: ABSOLUTE EOSINOPHILS # (AUTO) 0.2 10^3/uL (0.0-0.6); ABSOLUTE LYMPHOCYTES (AUTO) 0.7 10^3/uL (0.5-4.7); ABSOLUTE MONOCYTES (AUTO) 0.4 10^3/uL (0.1-1.4); ABSOLUTE NEUT (AUTO) 4.2 10^3/uL (1.7-8.2); BASOPHILS % (AUTO) 0.4 % (0-2); EOSINOPHILS % (AUTO) 2.9 % (0-6); HEMATOCRIT 28.2 % (37.9-51.0); LYMPHOCYTES % (AUTO) 12.8 % (13-45); MEAN CORPUSCULAR HEMOGLOBIN 27.6 pg (27.0-33.4); MEAN CORPUSCULAR HGB CONC 32.9 g/dL (32.0-36.0); MEAN CORPUSCULAR VOLUME 84 fl (80-97); MONOCYTES % (AUTO) 6.5 % (3-13); RED BLOOD COUNT 3.36 10^6/uL (4.35-5.55); RED CELL DISTRIBUTION WIDTH 19.8 % (11.5-14.0); SEGMENTED NEUTROPHILS % (AUTO) 77.4 % (42-78); TOTAL CELLS COUNTED % (AUTO) 100 %; WHITE BLOOD COUNT 5.5 10^3/uL (4.0-10.5)
[2017-07-19 04:13] LABS: HEMOGLOBIN 9.3 g/dL (13.5-17.0)
[2017-07-19 04:15] LABS: PLATELET COUNT 64 10^3/uL (150-450)
[2017-07-19] MEDS: PIPERACILLIN SODIUM/TAZOBACTAM 3.375 GM in NORMAL SALINE 100 ML IV SCH ×3 (05:34→22:33)
[2017-07-19] MEDS ORDERED: INSULIN GLARGINE,HUM.REC.ANLOG 1,000 UNIT/10 ML UNIT SUBCUT ONE (07:45)
[2017-07-19] MEDS: FERROUS SULFATE LIQUID 300 MG/5 ML UDC PEG SCH ×2 (08:51→18:34)
[2017-07-19] MEDS: CARVEDILOL 12.5 MG TABLET PEG SCH ×2 (08:52→22:55)
[2017-07-19] MEDS: LANSOPRAZOLE 30 MG TAB.RAP.DR PEG SCH ×2 (08:52→18:33)
[2017-07-19] MEDS: FINASTERIDE 5 MG TABLET PO SCH (08:52)
[2017-07-19] MEDS: ASCORBIC ACID 500 MG TABLET PEG SCH ×3 (08:52→18:33)
[2017-07-19] MEDS: FOLIC ACID 1 MG TABLET PEG SCH (08:53)
[2017-07-19] MEDS: ACETAMINOPHEN 325 MG TABLET PEG PRN ×2 (08:53→18:33)
[2017-07-19] MEDS: LACTOBACILLUS ACIDOPHILUS 250 MG TAB PEG SCH ×2 (08:54→18:33)
[2017-07-19] MEDS: NORMAL SALINE 10 ML SDV (SCHEDULED) IV SCH ×3 (08:56→22:56)
[2017-07-19] MEDS: MULTIVITS W-MIN/IRON SOLN 60 ML PEG SCH (08:59)
[2017-07-19] MEDS: NORMAL SALINE 250 ML IV PRN (09:01)
[2017-07-19] MEDS ORDERED: NORMAL SALINE 10 ML SDV (SCHEDULED) IV SCH (10:00)
--- NOTE | 2017-07-19 20:13 | PROGRESS NOTE E ---
Progress Note NAME: SEUN TOTH : 1940 AGE: 76Y DATE: 07/19/2017 ROOM: 319 SUBJECTIVE: The patient is a 76-year-old gentleman with a prior stroke who is bed bound and minimally verbal at baseline. He has dysphagia and has a PEG tube. He also has a chronic Catalan catheter. He presented to the hospital on 07/09 with altered mentation and bloody urine. He was found to have hypernatremia and acute renal failure. His sodium on admission was 186. He was started on IV fluids. He was also started on continuous bladder irrigation. He continues to have hematuria. CT scan of the abdomen showed mild bilateral hydronephrosis with bladder wall thickening and possible mass in the bladder. We currently do not have urology coverage but they are supposed to come back on service on Thursday, 07/21. His case was discussed with the urologist classroom paraprofessional at [facility]. He received 5 units of blood since admission. Currently, his hemoglobin is stable. The urine is light brown in color. OBJECTIVE: VITAL SIGNS: Stable. GENERAL: Elderly male, lying in bed, not in acute distress. He is on 2-point soft wrist restraints because he pulled out 2 PICC lines and a Catalan catheter. LUNGS: Clear to auscultation bilaterally. No respiratory effort. CARDIAC: S1, S2 regular. No murmurs heard. He has a left dtdrb-fki-jzhn amputation. No calf tenderness on the right. ABDOMEN: Soft, no focal tenderness. PEG tube is present. ASSESSMENT/PLAN: 1. Continue CBI. 2. Anemia with acute drop in hematocrit due to hematuria status post blood transfusions. Currently stable. Continue to monitor. 3. Enterococcus UTI. Today is day 11 of Zosyn. 4. Dysphagia. Continue tube feeding. 5. Acute renal failure, resolved. 6. Hypernatremia, resolved. Continue tube feed flushes. IV fluids have been stopped. DICTATING PHYSICIAN: REGGIE COSME M.D. [id number] PHY#: [id number] ID: [id number] JOB#: [id number] ACCT: [id number] cc: >
[2017-07-19] MEDS: DOXAZOSIN MESYLATE 2 MG TABLET PEG SCH (22:55)
[2017-07-19] MEDS: LATANOPROST 0.005% OPH SOLN 2.5 ML OU SCH (22:57)
[2017-07-20] MEDS: PIPERACILLIN SODIUM/TAZOBACTAM 3.375 GM in NORMAL SALINE 100 ML IV SCH ×3 (00:51→11:04)
[2017-07-20 06:32] LABS: HEMOGLOBIN 8.4 g/dL (13.5-17.0); MEAN CORPUSCULAR HEMOGLOBIN 27.4 pg (27.0-33.4); MEAN CORPUSCULAR HGB CONC 32.4 g/dL (32.0-36.0); MEAN CORPUSCULAR VOLUME 85 fl (80-97); RED BLOOD COUNT 3.08 10^6/uL (4.35-5.55); RED CELL DISTRIBUTION WIDTH 20.9 % (11.5-14.0); WHITE BLOOD COUNT 3.7 10^3/uL (4.0-10.5)
[2017-07-20 07:04] LABS: PLATELET COUNT 76 10^3/uL (150-450)
[2017-07-20 07:26] LABS: ANION GAP 17 (5-19); BLOOD UREA NITROGEN 42 mg/dL (7-20); CALCIUM 7.1 mg/dL (8.4-10.2); CARBON DIOXIDE 20 mmol/L (22-30); CHLORIDE 124 mmol/L (98-107); GLUCOSE 115 mg/dL (75-110); MAGNESIUM 2.1 mg/dL (1.6-2.3); PHOSPHORUS 2.6 mg/dL (2.5-4.5); POTASSIUM 4.4 mmol/L (3.6-5.0); SODIUM 160.6 mmol/L (137-145)
[2017-07-20] MEDS ORDERED: INSULIN GLARGINE,HUM.REC.ANLOG 1,000 UNIT/10 ML UNIT SUBCUT SCH (10:00)
[2017-07-20] MEDS: CARVEDILOL 12.5 MG TABLET PEG SCH ×2 (10:57→22:51)
[2017-07-20] MEDS: ASCORBIC ACID 500 MG TABLET PEG SCH ×3 (10:57→18:28)
[2017-07-20] MEDS: FERROUS SULFATE LIQUID 300 MG/5 ML UDC PEG SCH ×2 (10:57→18:28)
[2017-07-20] MEDS: LACTOBACILLUS ACIDOPHILUS 250 MG TAB PEG SCH ×2 (10:58→18:27)
[2017-07-20] MEDS: FOLIC ACID 1 MG TABLET PEG SCH (10:59)
[2017-07-20] MEDS: FINASTERIDE 5 MG TABLET PO SCH (10:59)
[2017-07-20] MEDS: LANSOPRAZOLE 30 MG TAB.RAP.DR PEG SCH ×2 (10:59→18:27)
[2017-07-20] MEDS: NORMAL SALINE 10 ML SDV (SCHEDULED) IV SCH ×2 (11:01→22:52)
[2017-07-20] MEDS: MULTIVITS W-MIN/IRON SOLN 60 ML PEG SCH (11:17)
--- NOTE | 2017-07-20 17:28 | PDOC PROGRESS REPORT ---
Subjective Progress Note for:: 07/20/17 Subjective:: 76 yr old gentleman with past medical history of Dementia Prior stroke, bedbound and aphasic Aspiration risk PEG tube Coronary artery disease CHF with left ventricular ejection fraction of 40% Hypertension Hyperlipidemia Peripheral vascular disease Left BKA Right great toe amputation Chronic indwelling Catalan catheter Diabetes Lives in a nursing home facility. He presented to the hospital on July 09 with hyponatremia, acute renal failure and hematuria. He has been on continuous bladder irrigation. It was felt that the hematuria was secondary to Catalan trauma. Antiplatelet agents were discontinued. A urology consult was requested although I do not see any documentation of this in the chart. He was reportedly given Tranexamic acid that helped with the hematuria, but it restarted again. He was given 3 sets of packed red blood cells. Urine culture grew enterococcus faecalis and today is day 8 of 10 of Zosyn. Renal ultrasound showed bilateral moderate hydronephrosis which is new compared to a study in May. CT abdomen and pelvis is pending. Hyponatremia and renal function are slowly improving. He continues to be on CBI which has been mostly clear but has had clots intermittently. Discussed his case with Dr. Newton, urologist extension associate at [facility]. She recommended continuing CBI till we have an in house Urologist which will be on 07/21/17 per hospital aerial tram operator. He was given 2 units of packed red blood cells on 07/19/17 CAT scan of the abdomen and pelvis showed mild bilateral hydronephrosis and hydroureter and thickening of the bladder wall with possible bladder mass. Venous duplex of the right upper extremity was ordered due to some swelling- results pending. Urology service will be back on 07/21/17 Reason For Visit: HYPERNATREMIA,AMS Physical Exam Vital Signs: Temp Pulse Resp BP Pulse Ox 97.3 F 73 18 120/74 100 07/20/17 16:03 07/20/17 16:03 07/20/17 16:03 07/20/17 16:03 07/20/17 16:03 Intake & Output 07/19/17 07/20/17 07/21/17 06:59 06:59 06:59 Intake Total 6061 2591 282 Output Total 21578 1660 4400 Balance -6070 -109 -6211 Weight 89.8 kg 88.3 kg General appearance: PRESENT: no acute distress Mouth exam: PRESENT: moist Neck exam: ABSENT: tracheal deviation Respiratory exam: PRESENT: clear to auscultation joaquin, unlabored. ABSENT: accessory muscle use, retraction Cardiovascular exam: PRESENT: RRR GI/Abdominal exam: PRESENT: normal bowel sounds, soft, other - PEG present. ABSENT: tenderness Extremities exam: PRESENT: other. ABSENT: calf tenderness Results Laboratory Results: 07/20/17 06:10 07/20/17 06:10 07/20/17 07/20/17 06:10 06:10 WBC 3.7 L RBC 3.08 L Hgb 8.4 L Hct 26.0 L MCV 85 MCH 27.4 MCHC 32.4 RDW 20.9 H Plt Count 76 L Sodium 160.6 H Potassium 4.4 Chloride 124 H Carbon Dioxide 20 L Anion Gap 17 BUN 42 H Creatinine 1.18 Est GFR ( Amer) > 60 Est GFR (Non-Af Amer) > 60 Glucose 115 H Calcium 7.1 L Phosphorus 2.6 Magnesium 2.1 Impressions: Guidance Fluoroscopy 07/09/17 00:00 IMPRESSION: SUCCESSFUL PLACEMENT OF A 5 FR DUAL LUMEN 43 CM PICC IN THE LEFT BASILIC VEIN. Interventional Vascular Procedure 07/09/17 00:00 IMPRESSION: SUCCESSFUL PLACEMENT OF A 5 FR DUAL LUMEN 43 CM PICC IN THE LEFT BASILIC VEIN. PICC Line Insertion 07/09/17 00:00 IMPRESSION: SUCCESSFUL PLACEMENT OF A 5 FR DUAL LUMEN 43 CM PICC IN THE LEFT BASILIC VEIN. Renal Ultrasound 07/14/17 00:00 IMPRESSION: 1. Bilateral moderate hydronephrosis, limited assessment. No hydronephrosis noted on May study. CT scan may help to further assess etiology for obstruction. Abdomen/Pelvis CT 07/16/17 00:00 IMPRESSION: Bilateral hydronephrosis and hydroureter similar to the recent ultrasound but not as severe CT in January There is extensive heterogeneous but somewhat generally dense material within the bladder with thickening of the bladder wall. Most likely hemorrhage. Based on previous CT there is underlying tumor as well. Indwelling Catalan catheter. Bilateral pleural effusions with basilar opacities left greater than right. Chest X-Ray 07/17/17 00:00 IMPRESSION: NO ACUTE RADIOGRAPHIC FINDING IN THE CHEST. Assessment & Plan - Diagnosis (1) Dehydration Is this a current diagnosis for this admission?: Yes (2) Hypernatremia Is this a current diagnosis for this admission?: Yes Plan: Resolved. Continue tube feed flushes. (3) Hypokalemia Is this a current diagnosis for this admission?: Yes Plan: repleted (4) ARF (acute renal failure) Qualifiers: Is this a current diagnosis for this admission?: Yes Plan: resolved with IV fluids (5) CVA (cerebral vascular accident) Qualifiers: CVA mechanism: unspecified Qualified Code(s): I63.9 - Cerebral infarction, unspecified Is this a current diagnosis for this admission?: Yes Plan: Old CVA, bed bound, minimally verbal at baseline (6) Hematuria Plan: Continue CBI. Needs a cystoscopy. Urology saw him last week. Their note is on paper in the chart. (7) Acute cystitis Qualifiers: Hematuria presence: with hematuria Qualified Code(s): N30.01 - Acute cystitis with hematuria Is this a current diagnosis for this admission?: Yes Plan: Complete 10 days of antibiotics - Time Time Spent with patient: 25-34 minutes
[2017-07-20] MEDS: DOXAZOSIN MESYLATE 2 MG TABLET PEG SCH (22:51)
[2017-07-20] MEDS: LATANOPROST 0.005% OPH SOLN 2.5 ML OU SCH (22:51)
--- NOTE | 2017-07-21 07:24 | XCELERA REPORT ---
[address] [address] Upper Extremity Venous Evaluation Name: SEUN TOTH Age: 76 yrs Gender: Male : 1940 Patient Status: Inpatient Patient Location: [address] [place], [place] [address] Study Date: 07/20/2017 02:41 PM Procedure: Unilateral duplex scan of the right upper extremity veins was performed, including responses to compression and other maneuvers. Reason For Study: Right upper extremity swelling Ordering Physician: REGGIE COSME Performed By: Lupe Flores Right Side Venous Evaluation Abnormal vessel filling , compression and reduced but existing Colour flow in the Subclavian and Axillary veins. Otherwise normal down to the forearm veins. Critical Findings Discussed with Dr Marland. 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 : REGGIE COSME [place]
[2017-07-21] MEDS: INSULIN GLARGINE,HUM.REC.ANLOG 1,000 UNIT/10 ML UNIT SUBCUT SCH (11:54)
[2017-07-21] MEDS: FERROUS SULFATE LIQUID 300 MG/5 ML UDC PEG SCH ×2 (11:56→18:31)
[2017-07-21] MEDS: LACTOBACILLUS ACIDOPHILUS 250 MG TAB PEG SCH ×2 (11:57→18:31)
[2017-07-21] MEDS: ASCORBIC ACID 500 MG TABLET PEG SCH ×3 (11:57→18:31)
[2017-07-21 11:58] LABS: ANION GAP 6 (5-19); BLOOD UREA NITROGEN 45 mg/dL (7-20); CALCIUM 9.1 mg/dL (8.4-10.2); CARBON DIOXIDE 28 mmol/L (22-30); CHLORIDE 118 mmol/L (98-107); GLUCOSE 180 mg/dL (75-110); POTASSIUM 5.4 mmol/L (3.6-5.0)
[2017-07-21] MEDS: CARVEDILOL 12.5 MG TABLET PEG SCH ×2 (11:58→23:55)
[2017-07-21] MEDS: FOLIC ACID 1 MG TABLET PEG SCH (11:58)
[2017-07-21] MEDS: FINASTERIDE 5 MG TABLET PO SCH (11:58)
[2017-07-21] MEDS: LANSOPRAZOLE 30 MG TAB.RAP.DR PEG SCH ×2 (11:58→18:31)
[2017-07-21] MEDS: NORMAL SALINE 10 ML SDV (SCHEDULED) IV SCH ×2 (11:59→23:56)
[2017-07-21] MEDS: MULTIVITS W-MIN/IRON SOLN 60 ML PEG SCH (12:09)
--- NOTE | 2017-07-21 18:15 | PDOC PROGRESS REPORT ---
Subjective Progress Note for:: 07/21/17 Subjective:: No new issues Reason For Visit: HYPERNATREMIA,AMS Physical Exam Vital Signs: Temp Pulse Resp BP Pulse Ox 98.8 F 91 18 151/86 H 97 07/21/17 11:47 07/21/17 14:00 07/21/17 11:47 07/21/17 11:47 07/21/17 11:47 Intake & Output 07/20/17 07/21/17 07/22/17 06:59 06:59 06:59 Intake Total 2591 1110 0 Output Total 2700 03092 4900 Balance -109 -03790 -4900 Weight 88.3 kg 90.1 kg General appearance: PRESENT: no acute distress, well-developed Head exam: PRESENT: atraumatic, normocephalic Eye exam: PRESENT: conjunctiva pink, EOMI. ABSENT: scleral icterus Ear exam: PRESENT: normal external ear exam Mouth exam: PRESENT: moist, tongue midline Neck exam: ABSENT: carotid bruit, JVD, lymphadenopathy, thyromegaly Respiratory exam: PRESENT: clear to auscultation joaquin. ABSENT: rales, rhonchi, wheezes Cardiovascular exam: PRESENT: bradycardia Pulses: PRESENT: normal dorsalis pedis pul Vascular exam: PRESENT: normal capillary refill GI/Abdominal exam: PRESENT: normal bowel sounds, soft. ABSENT: distended, guarding, mass, organolmegaly, rebound, tenderness Rectal exam: PRESENT: deferred Extremities exam: PRESENT: pedal edema Neurological exam: PRESENT: alert, awake, oriented to person. ABSENT: motor sensory deficit Psychiatric exam: ABSENT: homicidal ideation, suicidal ideation Skin exam: PRESENT: dry, intact, warm. ABSENT: cyanosis, rash Results Laboratory Results: 07/20/17 06:10 07/21/17 11:20 07/21/17 11:20 Sodium 152.0 H Potassium 5.4 H Chloride 118 H Carbon Dioxide 28 Anion Gap 6 BUN 45 H Creatinine 1.25 Est GFR ( Amer) > 60 Est GFR (Non-Af Amer) 56 L Glucose 180 H Calcium 9.1 Impressions: Guidance Fluoroscopy 07/09/17 00:00 IMPRESSION: SUCCESSFUL PLACEMENT OF A 5 FR DUAL LUMEN 43 CM PICC IN THE LEFT BASILIC VEIN. Interventional Vascular Procedure 07/09/17 00:00 IMPRESSION: SUCCESSFUL PLACEMENT OF A 5 FR DUAL LUMEN 43 CM PICC IN THE LEFT BASILIC VEIN. PICC Line Insertion 07/09/17 00:00 IMPRESSION: SUCCESSFUL PLACEMENT OF A 5 FR DUAL LUMEN 43 CM PICC IN THE LEFT BASILIC VEIN. Renal Ultrasound 07/14/17 00:00 IMPRESSION: 1. Bilateral moderate hydronephrosis, limited assessment. No hydronephrosis noted on May study. CT scan may help to further assess etiology for obstruction. Abdomen/Pelvis CT 07/16/17 00:00 IMPRESSION: Bilateral hydronephrosis and hydroureter similar to the recent ultrasound but not as severe CT in January There is extensive heterogeneous but somewhat generally dense material within the bladder with thickening of the bladder wall. Most likely hemorrhage. Based on previous CT there is underlying tumor as well. Indwelling Catalan catheter. Bilateral pleural effusions with basilar opacities left greater than right. Chest X-Ray 07/17/17 00:00 IMPRESSION: NO ACUTE RADIOGRAPHIC FINDING IN THE CHEST. Assessment & Plan - Diagnosis (1) Hypernatremia Is this a current diagnosis for this admission?: Yes Plan: Will give 1 liter of D5W. BMP in am (2) Dehydration Is this a current diagnosis for this admission?: Yes Plan: Resolved. (3) Hematuria Qualifiers: Hematuria type: gross Qualified Code(s): R31.0 - Gross hematuria Is this a current diagnosis for this admission?: Yes Plan: continue current treatment. (4) Hypokalemia Is this a current diagnosis for this admission?: Yes Plan: Resolved (5) ARF (acute renal failure) Qualifiers: Is this a current diagnosis for this admission?: Yes Plan: resolved (6) Acute cystitis Qualifiers: Hematuria presence: with hematuria Qualified Code(s): N30.01 - Acute cystitis with hematuria Is this a current diagnosis for this admission?: Yes Plan: Enterococcus: zosyn 03/22 (7) CVA (cerebral vascular accident) Qualifiers: CVA mechanism: unspecified Qualified Code(s): I63.9 - Cerebral infarction, unspecified Is this a current diagnosis for this admission?: Yes Plan: Will continue current treatment. - Time Time Spent with patient: 15-24 minutes
[2017-07-21] MEDS ORDERED: DEXTROSE 5%-WATER 1000 ML 1,000 ML IV ONE (18:30)
[2017-07-21] MEDS: NORMAL SALINE 10 ML SDV (AFTER EACH USE) IV PRN (23:56)
[2017-07-21] MEDS: DOXAZOSIN MESYLATE 2 MG TABLET PEG SCH (23:56)
[2017-07-21] MEDS: LATANOPROST 0.005% OPH SOLN 2.5 ML OU SCH (23:56)
[2017-07-22 07:40] LABS: ABSOLUTE EOSINOPHILS # (AUTO) 0.1 10^3/uL (0.0-0.6); ABSOLUTE LYMPHOCYTES (AUTO) 0.9 10^3/uL (0.5-4.7); ABSOLUTE MONOCYTES (AUTO) 0.4 10^3/uL (0.1-1.4); ABSOLUTE NEUT (AUTO) 3.2 10^3/uL (1.7-8.2); BASOPHILS % (AUTO) 0.4 % (0-2); EOSINOPHILS % (AUTO) 2.1 % (0-6); HEMATOCRIT 28.7 % (37.9-51.0); HEMOGLOBIN 9.5 g/dL (13.5-17.0); LYMPHOCYTES % (AUTO) 19.7 % (13-45); MEAN CORPUSCULAR HEMOGLOBIN 27.5 pg (27.0-33.4); MEAN CORPUSCULAR HGB CONC 33.1 g/dL (32.0-36.0); MEAN CORPUSCULAR VOLUME 83 fl (80-97); MONOCYTES % (AUTO) 8.1 % (3-13); RED BLOOD COUNT 3.46 10^6/uL (4.35-5.55); RED CELL DISTRIBUTION WIDTH 20.2 % (11.5-14.0); SEGMENTED NEUTROPHILS % (AUTO) 69.7 % (42-78); TOTAL CELLS COUNTED % (AUTO) 100 %; WHITE BLOOD COUNT 4.7 10^3/uL (4.0-10.5)
[2017-07-22 08:04] LABS: ALANINE AMINOTRANSFERASE 28 U/L (21-72); ALBUMIN 2.4 g/dL (3.5-5.0); ALKALINE PHOSPHATASE 62 U/L (38-126); ANION GAP 7 (5-19); ASPARTATE AMINO TRANSFERASE 24 U/L (17-59); BILIRUBIN,DIRECT 0.2 mg/dL (0.0-0.4); BILIRUBIN,TOTAL 0.2 mg/dL (0.2-1.3); BLOOD UREA NITROGEN 42 mg/dL (7-20); CARBON DIOXIDE 26 mmol/L (22-30); CHLORIDE 116 mmol/L (98-107); GLUCOSE 123 mg/dL (75-110); MAGNESIUM 2.3 mg/dL (1.6-2.3); POTASSIUM 5.4 mmol/L (3.6-5.0); SODIUM 149.2 mmol/L (137-145)
[2017-07-22 08:36] LABS: PLATELET COUNT 95 10^3/uL (150-450)
[2017-07-22] MEDS ORDERED: DEXTROSE 5%-WATER 1000 ML 1,000 ML IV ONE (08:45)
--- NOTE | 2017-07-22 08:45 | PDOC PROGRESS REPORT ---
Subjective Progress Note for:: 07/22/17 Subjective:: No new issues. Dr. 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 Reason For Visit: HYPERNATREMIA,AMS Physical Exam Vital Signs: Temp Pulse Resp BP Pulse Ox 99.3 F 85 18 115/68 99 07/22/17 04:25 07/22/17 04:25 07/22/17 04:25 07/22/17 04:25 07/22/17 04:25 Intake & Output 07/21/17 07/22/17 07/23/17 06:59 06:59 06:59 Intake Total 1110 7900 619 Output Total 41547 24867 Balance -32455 -2750 619 Weight 90.1 kg General appearance: PRESENT: no acute distress, well-developed, well-nourished Head exam: PRESENT: atraumatic, normocephalic Eye exam: PRESENT: conjunctiva pink, EOMI. ABSENT: scleral icterus Ear exam: PRESENT: normal external ear exam Mouth exam: PRESENT: moist, tongue midline Neck exam: ABSENT: carotid bruit, JVD, lymphadenopathy, thyromegaly Respiratory exam: PRESENT: clear to auscultation joaquin. ABSENT: rales, rhonchi, wheezes Cardiovascular exam: PRESENT: RRR, other - + Right upper ext edema +2 pitting edema and + left upper ext edema. ABSENT: diastolic murmur, rubs, systolic murmur Pulses: PRESENT: normal dorsalis pedis pul Vascular exam: PRESENT: normal capillary refill GI/Abdominal exam: PRESENT: normal bowel sounds, soft. 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 ABSENT: calf tenderness, clubbing, pedal edema Neurological exam: PRESENT: alert, awake, oriented to person Psychiatric exam: PRESENT: appropriate affect, normal mood. ABSENT: homicidal ideation, suicidal ideation Skin exam: PRESENT: dry, intact, warm. ABSENT: cyanosis, rash Results Laboratory Results: 07/22/17 06:30 07/21/17 07/22/17 11:20 06:30 Sodium 152.0 H 149.2 H Potassium 5.4 H 5.4 H Chloride 118 H 116 H Carbon Dioxide 28 26 Anion Gap 6 7 BUN 45 H 42 H Creatinine 1.25 1.12 Est GFR ( Amer) > 60 > 60 Est GFR (Non-Af Amer) 56 L > 60 Glucose 180 H 123 H Calcium 9.1 9.0 Magnesium 2.3 Total Bilirubin 0.2 AST 24 ALT 28 Alkaline Phosphatase 62 Total Protein 6.0 L Albumin 2.4 L Impressions: Guidance Fluoroscopy 07/09/17 00:00 IMPRESSION: SUCCESSFUL PLACEMENT OF A 5 FR DUAL LUMEN 43 CM PICC IN THE LEFT BASILIC VEIN. Interventional Vascular Procedure 07/09/17 00:00 IMPRESSION: SUCCESSFUL PLACEMENT OF A 5 FR DUAL LUMEN 43 CM PICC IN THE LEFT BASILIC VEIN. PICC Line Insertion 07/09/17 00:00 IMPRESSION: SUCCESSFUL PLACEMENT OF A 5 FR DUAL LUMEN 43 CM PICC IN THE LEFT BASILIC VEIN. Renal Ultrasound 07/14/17 00:00 IMPRESSION: 1. Bilateral moderate hydronephrosis, limited assessment. No hydronephrosis noted on May study. CT scan may help to further assess etiology for obstruction. Abdomen/Pelvis CT 07/16/17 00:00 IMPRESSION: Bilateral hydronephrosis and hydroureter similar to the recent ultrasound but not as severe CT in January There is extensive heterogeneous but somewhat generally dense material within the bladder with thickening of the bladder wall. Most likely hemorrhage. Based on previous CT there is underlying tumor as well. Indwelling Catalan catheter. Bilateral pleural effusions with basilar opacities left greater than right. Chest X-Ray 07/17/17 00:00 IMPRESSION: NO ACUTE RADIOGRAPHIC FINDING IN THE CHEST. Assessment & Plan - Diagnosis (1) Hypernatremia Is this a current diagnosis for this admission?: Yes Plan: Will give adddition D5W bolus X 1. Sodium improving. Will check BMP in a.m. (2) Dehydration Is this a current diagnosis for this admission?: Yes Plan: Given additional D5W saline bolus. Will check BMP in a.m. (3) Hematuria Qualifiers: Hematuria type: gross Qualified Code(s): R31.0 - Gross hematuria Is this a current diagnosis for this admission?: Yes Plan: continue current treatment. (4) Hypokalemia Is this a current diagnosis for this admission?: Yes Plan: Resolved (5) ARF (acute renal failure) Qualifiers: Is this a current diagnosis for this admission?: Yes Plan: resolved (6) Acute cystitis Qualifiers: Hematuria presence: with hematuria Qualified Code(s): N30.01 - Acute cystitis with hematuria Is this a current diagnosis for this admission?: Yes Plan: Enterococcus: zosyn 04/21. Will discontinue Zosyn after patient's last dose. (7) CVA (cerebral vascular accident) Qualifiers: CVA mechanism: unspecified Qualified Code(s): I63.9 - Cerebral infarction, unspecified Is this a current diagnosis for this admission?: Yes Plan: Will continue current treatment. (8) Subacute Right subclavian and axillary Is this a current diagnosis for this admission?: Yes Plan: Nonoccluding DVT with question of chronic upper extremity DVT: Recommend repeat ultrasound in 2 weeks. Due to patient's hematuria requiring blood transfusion would not start anticoagulation at this point in addition upper extremity DVT poses lower risk for causing PE. - Time Time Spent with patient: 15-24 minutes
[2017-07-22] MEDS: LACTOBACILLUS ACIDOPHILUS 250 MG TAB PEG SCH ×2 (12:22→18:54)
[2017-07-22] MEDS: NORMAL SALINE 10 ML SDV (SCHEDULED) IV SCH ×2 (12:31→21:57)
[2017-07-22] MEDS: CARVEDILOL 12.5 MG TABLET PEG SCH ×2 (12:31→21:57)
[2017-07-22] MEDS: NORMAL SALINE 10 ML SDV (AFTER EACH USE) IV PRN (12:31)
[2017-07-22] MEDS: ASCORBIC ACID 500 MG TABLET PEG SCH ×3 (12:31→18:54)
[2017-07-22] MEDS: FINASTERIDE 5 MG TABLET PO SCH (12:32)
[2017-07-22] MEDS: LANSOPRAZOLE 30 MG TAB.RAP.DR PEG SCH ×2 (12:32→18:54)
[2017-07-22] MEDS: FOLIC ACID 1 MG TABLET PEG SCH (12:32)
[2017-07-22] MEDS: INSULIN GLARGINE,HUM.REC.ANLOG 1,000 UNIT/10 ML UNIT SUBCUT SCH (12:33)
[2017-07-22] MEDS: MULTIVITS W-MIN/IRON SOLN 60 ML PEG SCH (12:35)
[2017-07-22] MEDS: FERROUS SULFATE LIQUID 300 MG/5 ML UDC PEG SCH ×2 (15:42→18:55)
[2017-07-22] MEDS: INSULIN LISPRO 100 UNIT/ML 3 ML VIAL SUBCUT PRN (18:55)
[2017-07-22] MEDS: DOXAZOSIN MESYLATE 2 MG TABLET PEG SCH (21:57)
[2017-07-22] MEDS: LATANOPROST 0.005% OPH SOLN 2.5 ML OU SCH (21:58)
[2017-07-23 06:32] LABS: ABSOLUTE EOSINOPHILS # (AUTO) 0.1 10^3/uL (0.0-0.6); ABSOLUTE LYMPHOCYTES (AUTO) 0.9 10^3/uL (0.5-4.7); ABSOLUTE MONOCYTES (AUTO) 0.4 10^3/uL (0.1-1.4); ABSOLUTE NEUT (AUTO) 3.7 10^3/uL (1.7-8.2); BASOPHILS % (AUTO) 0.3 % (0-2); EOSINOPHILS % (AUTO) 2.5 % (0-6); HEMATOCRIT 28.4 % (37.9-51.0); HEMOGLOBIN 9.4 g/dL (13.5-17.0); LYMPHOCYTES % (AUTO) 18.1 % (13-45); MEAN CORPUSCULAR HEMOGLOBIN 27.4 pg (27.0-33.4); MEAN CORPUSCULAR VOLUME 83 fl (80-97); MONOCYTES % (AUTO) 7.1 % (3-13); PLATELET COUNT 102 10^3/uL (150-450); RED BLOOD COUNT 3.43 10^6/uL (4.35-5.55); RED CELL DISTRIBUTION WIDTH 20.4 % (11.5-14.0); TOTAL CELLS COUNTED % (AUTO) 100 %; WHITE BLOOD COUNT 5.1 10^3/uL (4.0-10.5)
[2017-07-23 06:55] LABS: BLOOD UREA NITROGEN 37 mg/dL (7-20); CALCIUM 8.8 mg/dL (8.4-10.2); GLUCOSE 120 mg/dL (75-110); MAGNESIUM 2.1 mg/dL (1.6-2.3); POTASSIUM 5.4 mmol/L (3.6-5.0)
[2017-07-23 07:04] LABS: CARBON DIOXIDE 27 mmol/L (22-30); CHLORIDE 112 mmol/L (98-107); SODIUM 143.2 mmol/L (137-145)
[2017-07-23 07:05] LABS: ANION GAP 4 (5-19)
[2017-07-23] MEDS: FERROUS SULFATE LIQUID 300 MG/5 ML UDC PEG SCH ×2 (11:41→18:40)
[2017-07-23] MEDS: NORMAL SALINE 10 ML SDV (AFTER EACH USE) IV PRN (11:42)
[2017-07-23] MEDS: MULTIVITS W-MIN/IRON SOLN 60 ML PEG SCH (11:42)
[2017-07-23] MEDS: NORMAL SALINE 10 ML SDV (SCHEDULED) IV SCH ×2 (11:42→21:38)
[2017-07-23] MEDS: LACTOBACILLUS ACIDOPHILUS 250 MG TAB PEG SCH ×2 (11:43→18:39)
[2017-07-23] MEDS: ASCORBIC ACID 500 MG TABLET PEG SCH ×3 (11:43→18:39)
[2017-07-23] MEDS: FOLIC ACID 1 MG TABLET PEG SCH (11:44)
[2017-07-23] MEDS: FINASTERIDE 5 MG TABLET PO SCH (11:44)
[2017-07-23] MEDS: CARVEDILOL 12.5 MG TABLET PEG SCH ×2 (11:44→21:38)
[2017-07-23] MEDS: INSULIN GLARGINE,HUM.REC.ANLOG 1,000 UNIT/10 ML UNIT SUBCUT SCH (11:45)
[2017-07-23] MEDS: LANSOPRAZOLE 30 MG TAB.RAP.DR PEG SCH ×2 (11:45→18:39)
--- NOTE | 2017-07-23 20:13 | PDOC PROGRESS REPORT ---
Subjective Progress Note for:: 07/23/17 Subjective:: No new issues. Reason For Visit: HYPERNATREMIA,AMS Physical Exam Vital Signs: Temp Pulse Resp BP Pulse Ox 98.5 F 70 14 102/59 L 100 07/23/17 16:00 07/23/17 16:00 07/23/17 16:00 07/23/17 16:00 07/23/17 16:00 Intake & Output 07/22/17 07/23/17 07/24/17 06:59 06:59 06:59 Intake Total 7900 78882 1416 Output Total 51745 49376 2300 Balance -6507 -9085 -064 Weight 92.6 kg General appearance: PRESENT: no acute distress Head exam: PRESENT: atraumatic, normocephalic Eye exam: PRESENT: conjunctiva pink, EOMI. ABSENT: scleral icterus Ear exam: PRESENT: normal external ear exam Mouth exam: PRESENT: moist, tongue midline Neck exam: ABSENT: carotid bruit, JVD, lymphadenopathy, thyromegaly Respiratory exam: PRESENT: clear to auscultation joaquin. ABSENT: rales, rhonchi, wheezes Cardiovascular exam: PRESENT: RRR. ABSENT: diastolic murmur, rubs, systolic murmur Pulses: PRESENT: normal dorsalis pedis pul Vascular exam: PRESENT: normal capillary refill GI/Abdominal exam: PRESENT: normal bowel sounds, soft, other - feeding tube in place. ABSENT: distended, guarding, mass, organolmegaly, rebound, tenderness Rectal exam: PRESENT: deferred Extremities exam: PRESENT: +2 edema - + Bilateral upper ext edema. ABSENT: calf tenderness, clubbing, pedal edema Musculoskeletal exam: PRESENT: other - right lower ext great toe amputation, and Left BKA. Neurological exam: PRESENT: alert, awake, oriented to person. ABSENT: motor sensory deficit Psychiatric exam: PRESENT: appropriate affect, normal mood. ABSENT: homicidal ideation, suicidal ideation Skin exam: PRESENT: dry, intact, warm. ABSENT: cyanosis, rash Results Laboratory Results: 07/23/17 05:57 07/23/17 05:57 07/23/17 07/23/17 05:57 05:57 WBC 5.1 RBC 3.43 L Hgb 9.4 L Hct 28.4 L MCV 83 MCH 27.4 MCHC 33.0 RDW 20.4 H Plt Count 102 L Seg Neutrophils % 72.0 Lymphocytes % 18.1 Monocytes % 7.1 Eosinophils % 2.5 Basophils % 0.3 Absolute Neutrophils 3.7 Absolute Lymphocytes 0.9 Absolute Monocytes 0.4 Absolute Eosinophils 0.1 Absolute Basophils 0.0 Sodium 143.2 Potassium 5.4 H Chloride 112 H Carbon Dioxide 27 Anion Gap 4 L BUN 37 H Creatinine 1.15 Est GFR ( Amer) > 60 Est GFR (Non-Af Amer) > 60 Glucose 120 H Calcium 8.8 Magnesium 2.1 Impressions: Guidance Fluoroscopy 07/09/17 00:00 IMPRESSION: SUCCESSFUL PLACEMENT OF A 5 FR DUAL LUMEN 43 CM PICC IN THE LEFT BASILIC VEIN. Interventional Vascular Procedure 07/09/17 00:00 IMPRESSION: SUCCESSFUL PLACEMENT OF A 5 FR DUAL LUMEN 43 CM PICC IN THE LEFT BASILIC VEIN. PICC Line Insertion 07/09/17 00: IMPRESSION: SUCCESSFUL PLACEMENT OF A 5 FR DUAL LUMEN 43 CM PICC IN THE LEFT BASILIC VEIN. Renal Ultrasound 07/14/17 00:00 IMPRESSION: 1. Bilateral moderate hydronephrosis, limited assessment. No hydronephrosis noted on May study. CT scan may help to further assess etiology for obstruction. Abdomen/Pelvis CT 07/16/17 00:00 IMPRESSION: Bilateral hydronephrosis and hydroureter similar to the recent ultrasound but not as severe CT in January There is extensive heterogeneous but somewhat generally dense material within the bladder with thickening of the bladder wall. Most likely hemorrhage. Based on previous CT there is underlying tumor as well. Indwelling Catalan catheter. Bilateral pleural effusions with basilar opacities left greater than right. Chest X-Ray 07/17/17 00:00 IMPRESSION: NO ACUTE RADIOGRAPHIC FINDING IN THE CHEST. Assessment & Plan - Diagnosis (1) Hypernatremia Is this a current diagnosis for this admission?: Yes Plan: Resolved. (2) Dehydration Is this a current diagnosis for this admission?: Yes Plan: Will have Free water increased. (3) Hematuria Qualifiers: Hematuria type: gross Qualified Code(s): R31.0 - Gross hematuria Is this a current diagnosis for this admission?: Yes Plan: continue current treatment. (4) Hypokalemia Is this a current diagnosis for this admission?: Yes Plan: Resolved (5) ARF (acute renal failure) Qualifiers: Is this a current diagnosis for this admission?: Yes Plan: resolved (6) Acute cystitis Qualifiers: Hematuria presence: with hematuria Qualified Code(s): N30.01 - Acute cystitis with hematuria Is this a current diagnosis for this admission?: Yes Plan: Enterococcus: zosyn 04/21. (7) CVA (cerebral vascular accident) Qualifiers: CVA mechanism: unspecified Qualified Code(s): I63.9 - Cerebral infarction, unspecified Is this a current diagnosis for this admission?: Yes Plan: Will continue current treatment. (8) Subacute Right subclavian and axillary Is this a current diagnosis for this admission?: Yes Plan: Nonoccluding DVT with question of chronic upper extremity DVT: Recommend repeat ultrasound in 2 weeks. Due to patient's hematuria requiring blood transfusion would not start anticoagulation at this point in addition upper extremity DVT poses lower risk for causing PE. Will check left upper U/S for DVT. - Time Time Spent with patient: 15-24 minutes
[2017-07-23] MEDS: DOXAZOSIN MESYLATE 2 MG TABLET PEG SCH (21:38)
[2017-07-23] MEDS: LATANOPROST 0.005% OPH SOLN 2.5 ML OU SCH (21:39)
[2017-07-24] MEDS: INSULIN LISPRO 100 UNIT/ML 3 ML VIAL SUBCUT PRN (08:53)
[2017-07-24] MEDS: CARVEDILOL 12.5 MG TABLET PEG SCH (11:00)
[2017-07-24] MEDS: INSULIN GLARGINE,HUM.REC.ANLOG 1,000 UNIT/10 ML UNIT SUBCUT SCH (11:01)
[2017-07-24] MEDS: ASCORBIC ACID 500 MG TABLET PEG SCH ×3 (11:01→18:00)
[2017-07-24] MEDS: FOLIC ACID 1 MG TABLET PEG SCH (11:01)
[2017-07-24] MEDS: LACTOBACILLUS ACIDOPHILUS 250 MG TAB PEG SCH ×2 (11:01→17:37)
[2017-07-24] MEDS: LANSOPRAZOLE 30 MG TAB.RAP.DR PEG SCH ×2 (11:02→17:37)
[2017-07-24] MEDS: NORMAL SALINE 10 ML SDV (SCHEDULED) IV SCH (11:02)
[2017-07-24] MEDS: FINASTERIDE 5 MG TABLET PO SCH (11:02)
[2017-07-24] MEDS: MULTIVITS W-MIN/IRON SOLN 60 ML PEG SCH (11:10)
[2017-07-24] MEDS: FERROUS SULFATE LIQUID 300 MG/5 ML UDC PEG SCH ×2 (11:15→17:42)
--- NOTE | 2017-07-24 16:24 | PDOC PROGRESS REPORT ---
Subjective Progress Note for:: 07/24/17 Subjective:: No new issues. Received call from radiology department reporting that patient does have a thrombus in the left upper extremity but not a DVT. Reason For Visit: HYPERNATREMIA,AMS Physical Exam Vital Signs: Temp Pulse Resp BP Pulse Ox 98.7 F 83 18 121/58 L 100 07/24/17 00:16 07/24/17 02:00 07/24/17 00:16 07/24/17 00:16 07/24/17 00:16 Intake & Output 07/23/17 07/24/17 07/25/17 06:59 06:59 06:59 Intake Total 24484 26535 Output Total 05493 72513 Balance -1450 -3109 Weight 92.6 kg 95.2 kg General appearance: PRESENT: no acute distress, well-developed, well-nourished Head exam: PRESENT: atraumatic, normocephalic Eye exam: PRESENT: conjunctiva pink, EOMI. ABSENT: scleral icterus Ear exam: PRESENT: normal external ear exam Mouth exam: PRESENT: moist, tongue midline Neck exam: ABSENT: carotid bruit, JVD, lymphadenopathy, thyromegaly Respiratory exam: PRESENT: clear to auscultation joaquin. ABSENT: rales, rhonchi, wheezes Cardiovascular exam: PRESENT: RRR. ABSENT: diastolic murmur, rubs, systolic murmur Pulses: PRESENT: normal dorsalis pedis pul Vascular exam: PRESENT: normal capillary refill GI/Abdominal exam: PRESENT: normal bowel sounds, soft. ABSENT: distended, guarding, mass, organolmegaly, rebound, tenderness Rectal exam: PRESENT: deferred Extremities exam: PRESENT: other - Right lower extremity great toe amputation left BKA. ABSENT: calf tenderness, clubbing, pedal edema Musculoskeletal exam: PRESENT: other - Right lower extremity great toe amputation and a left BKA Neurological exam: PRESENT: alert, awake, oriented to person Psychiatric exam: PRESENT: appropriate affect, normal mood. ABSENT: homicidal ideation, suicidal ideation Skin exam: PRESENT: dry, intact, warm. ABSENT: cyanosis, rash Results Laboratory Results: 07/23/17 05:57 07/23/17 05:57 Impressions: Guidance Fluoroscopy 07/09/17 00:00 IMPRESSION: SUCCESSFUL PLACEMENT OF A 5 FR DUAL LUMEN 43 CM PICC IN THE LEFT BASILIC VEIN. Interventional Vascular Procedure 07/09/17 00:00 IMPRESSION: SUCCESSFUL PLACEMENT OF A 5 FR DUAL LUMEN 43 CM PICC IN THE LEFT BASILIC VEIN. PICC Line Insertion 07/09/17 00:00 IMPRESSION: SUCCESSFUL PLACEMENT OF A 5 FR DUAL LUMEN 43 CM PICC IN THE LEFT BASILIC VEIN. Renal Ultrasound 07/14/17 00:00 IMPRESSION: 1. Bilateral moderate hydronephrosis, limited assessment. No hydronephrosis noted on May study. CT scan may help to further assess etiology for obstruction. Abdomen/Pelvis CT 07/16/17 00:00 IMPRESSION: Bilateral hydronephrosis and hydroureter similar to the recent ultrasound but not as severe CT in January There is extensive heterogeneous but somewhat generally dense material within the bladder with thickening of the bladder wall. Most likely hemorrhage. Based on previous CT there is underlying tumor as well. Indwelling Catalan catheter. Bilateral pleural effusions with basilar opacities left greater than right. Chest X-Ray 07/17/17 00:00 IMPRESSION: NO ACUTE RADIOGRAPHIC FINDING IN THE CHEST. Assessment & Plan - Diagnosis (1) Hypernatremia Is this a current diagnosis for this admission?: Yes Plan: Resolved. (2) Dehydration Is this a current diagnosis for this admission?: Yes Plan: Will have Free water increased. (3) Hematuria Qualifiers: Hematuria type: gross Qualified Code(s): R31.0 - Gross hematuria Is this a current diagnosis for this admission?: Yes Plan: continue current treatment. Patient continues to have blood clots from Catalan. Patient's anticoagulation has been discontinued. (4) Hypokalemia Is this a current diagnosis for this admission?: Yes Plan: Resolved (5) ARF (acute renal failure) Qualifiers: Is this a current diagnosis for this admission?: Yes Plan: resolved (6) Acute cystitis Qualifiers: Hematuria presence: with hematuria Qualified Code(s): N30.01 - Acute cystitis with hematuria Is this a current diagnosis for this admission?: Yes Plan: Enterococcus: zosyn 04/21. (7) CVA (cerebral vascular accident) Qualifiers: CVA mechanism: unspecified Qualified Code(s): I63.9 - Cerebral infarction, unspecified Is this a current diagnosis for this admission?: Yes Plan: Will continue current treatment. (8) Subacute Right subclavian and axillary Is this a current diagnosis for this admission?: Yes Plan: Nonoccluding DVT with question of chronic upper extremity DVT: Recommend repeat ultrasound in 2 weeks. Due to patient's hematuria requiring blood transfusion would not start anticoagulation at this point in addition upper extremity DVT poses lower risk for causing PE. (9) Thrombosis of left upper extremity Is this a current diagnosis for this admission?: Yes Plan: We will await official report - Time Time Spent with patient: 15-24 minutes
--- NOTE | 2017-07-24 17:01 | XCELERA REPORT ---
[address] [address] Upper Extremity Venous Evaluation Name: SEUN TOTH Age: 76 yrs Gender: Male : 1940 Patient Status: Inpatient Patient Location: [address] [place] [address] Study Date: 07/24/2017 09:21 AM Procedure: Unilateral duplex scan of the left upper extremity veins was performed, including responses to compression and other maneuvers. Reason For Study: Left upper ext Ordering Physician: WILLIAM BENOIT Performed By: Puja Anglin Left Sided Venous Evaluation Superficial phlebitis, partly occluded vein in the Basilic, related to a PICC line. Otherwise normal vessel filling wall to wall, compression and augmentation as well as Colour flow down to the forearm veins. Interpretation Summary No duplex evidence of DVT or obstruction in the left upper extremity. Superficial phlebitis noted in the Basilic vein, in relation to a PICC line. : WILLIAM BENOIT [place]
[2017-07-25] MEDS: DOXAZOSIN MESYLATE 2 MG TABLET PEG SCH ×2 (00:46→23:11)
[2017-07-25] MEDS: CARVEDILOL 12.5 MG TABLET PEG SCH ×3 (00:46→23:11)
[2017-07-25] MEDS: NORMAL SALINE 10 ML SDV (SCHEDULED) IV SCH ×3 (00:46→23:23)
[2017-07-25] MEDS: LATANOPROST 0.005% OPH SOLN 2.5 ML OU SCH ×2 (00:47→23:23)
[2017-07-25 07:39] LABS: ABSOLUTE EOSINOPHILS # (AUTO) 0.1 10^3/uL (0.0-0.6); ABSOLUTE LYMPHOCYTES (AUTO) 0.9 10^3/uL (0.5-4.7); ABSOLUTE MONOCYTES (AUTO) 0.3 10^3/uL (0.1-1.4); ABSOLUTE NEUT (AUTO) 3.6 10^3/uL (1.7-8.2); BASOPHILS % (AUTO) 0.2 % (0-2); EOSINOPHILS % (AUTO) 2.9 % (0-6); HEMOGLOBIN 9.3 g/dL (13.5-17.0); LYMPHOCYTES % (AUTO) 17.6 % (13-45); MEAN CORPUSCULAR HEMOGLOBIN 27.4 pg (27.0-33.4); MEAN CORPUSCULAR HGB CONC 33.1 g/dL (32.0-36.0); MEAN CORPUSCULAR VOLUME 83 fl (80-97); MONOCYTES % (AUTO) 6.1 % (3-13); PLATELET COUNT 124 10^3/uL (150-450); RED BLOOD COUNT 3.38 10^6/uL (4.35-5.55); RED CELL DISTRIBUTION WIDTH 20.4 % (11.5-14.0); SEGMENTED NEUTROPHILS % (AUTO) 73.2 % (42-78); TOTAL CELLS COUNTED % (AUTO) 100 %; WHITE BLOOD COUNT 4.9 10^3/uL (4.0-10.5)
[2017-07-25 07:56] LABS: ALANINE AMINOTRANSFERASE 25 U/L (21-72); ALBUMIN 2.6 g/dL (3.5-5.0); ALKALINE PHOSPHATASE 65 U/L (38-126); ANION GAP 8 (5-19); ASPARTATE AMINO TRANSFERASE 21 U/L (17-59); BILIRUBIN,TOTAL < 0.1 mg/dL (0.2-1.3); BLOOD UREA NITROGEN 32 mg/dL (7-20); CALCIUM 8.9 mg/dL (8.4-10.2); CARBON DIOXIDE 26 mmol/L (22-30); CHLORIDE 112 mmol/L (98-107); GLUCOSE 101 mg/dL (75-110); POTASSIUM 5.2 mmol/L (3.6-5.0); SODIUM 145.5 mmol/L (137-145); TOTAL PROTEIN 6.3 g/dL (6.3-8.2)
[2017-07-25 08:00] LABS: ANISOCYTOSIS 2+; HYPOCHROMASIA SLIGHT; OVALOCYTES SLIGHT; PLATELET COMMENT ADEQUATE; POIKILOCYTOSIS SLIGHT; POLYCHROMASIA SLIGHT
[2017-07-25] MEDS: INSULIN GLARGINE,HUM.REC.ANLOG 1,000 UNIT/10 ML UNIT SUBCUT SCH (10:11)
[2017-07-25] MEDS: FOLIC ACID 1 MG TABLET PEG SCH (10:12)
[2017-07-25] MEDS: ASCORBIC ACID 500 MG TABLET PEG SCH ×3 (10:12→17:38)
[2017-07-25] MEDS: LACTOBACILLUS ACIDOPHILUS 250 MG TAB PEG SCH ×2 (10:12→17:38)
[2017-07-25] MEDS: FINASTERIDE 5 MG TABLET PO SCH (10:13)
[2017-07-25] MEDS: FERROUS SULFATE LIQUID 300 MG/5 ML UDC PEG SCH ×2 (10:13→17:38)
[2017-07-25] MEDS: LANSOPRAZOLE 30 MG TAB.RAP.DR PEG SCH ×2 (10:13→17:38)
[2017-07-25] MEDS: MULTIVITS W-MIN/IRON SOLN 60 ML PEG SCH (10:18)
[2017-07-25] MEDS ORDERED: DEXTROSE 5%-WATER 1000 ML 1,000 ML IV ONE (15:38)
--- NOTE | 2017-07-25 17:41 | PDOC PROGRESS REPORT ---
Subjective Progress Note for:: 07/25/17 Subjective:: Pt continue to have blood clot with blood from babb. Reason For Visit: HYPERNATREMIA,AMS Physical Exam Vital Signs: Temp Pulse Resp BP Pulse Ox 98.3 F 79 16 106/84 98 07/25/17 16:00 07/25/17 16:00 07/25/17 16:00 07/25/17 16:00 07/25/17 16:00 Intake & Output 07/24/17 07/25/17 07/26/17 06:59 06:59 06:59 Intake Total 23907 43718 Output Total 56462 49724 Balance -3109 89115 Weight 95.2 kg 89.1 kg General appearance: PRESENT: no acute distress, well-developed, well-nourished Head exam: PRESENT: atraumatic, normocephalic Eye exam: PRESENT: conjunctiva pink, EOMI. ABSENT: scleral icterus Ear exam: PRESENT: normal external ear exam Mouth exam: PRESENT: moist, tongue midline Neck exam: ABSENT: carotid bruit, JVD, lymphadenopathy, thyromegaly Respiratory exam: PRESENT: clear to auscultation joaquin. ABSENT: rales, rhonchi, wheezes Cardiovascular exam: PRESENT: RRR. ABSENT: diastolic murmur, rubs, systolic murmur Pulses: PRESENT: normal dorsalis pedis pul GI/Abdominal exam: PRESENT: normal bowel sounds, soft. ABSENT: distended, guarding, mass, organolmegaly, rebound, tenderness Rectal exam: PRESENT: deferred Extremities exam: PRESENT: other - Right Foot great toe amputation, Musculoskeletal exam: PRESENT: other - Right foot great toe amputation and Left BKA Neurological exam: PRESENT: alert, awake, oriented to person, oriented to place. ABSENT: motor sensory deficit Psychiatric exam: PRESENT: appropriate affect, normal mood. ABSENT: homicidal ideation, suicidal ideation Skin exam: PRESENT: dry, intact, warm. ABSENT: cyanosis, rash Results Laboratory Results: 07/25/17 05:50 07/25/17 05:50 07/25/17 07/25/17 05:50 05:50 WBC 4.9 RBC 3.38 L Hgb 9.3 L Hct 28.0 L MCV 83 MCH 27.4 MCHC 33.1 RDW 20.4 H Plt Count 124 L Seg Neutrophils % 73.2 Lymphocytes % 17.6 Monocytes % 6.1 Eosinophils % 2.9 Basophils % 0.2 Absolute Neutrophils 3.6 Absolute Lymphocytes 0.9 Absolute Monocytes 0.3 Absolute Eosinophils 0.1 Absolute Basophils 0.0 Sodium 145.5 H Potassium 5.2 H Chloride 112 H Carbon Dioxide 26 Anion Gap 8 BUN 32 H Creatinine 1.06 Est GFR ( Amer) > 60 Est GFR (Non-Af Amer) > 60 Glucose 101 Calcium 8.9 Total Bilirubin < 0.1 L AST 21 ALT 25 Alkaline Phosphatase 65 Total Protein 6.3 Albumin 2.6 L Impressions: Guidance Fluoroscopy 07/09/17 00:00 IMPRESSION: SUCCESSFUL PLACEMENT OF A 5 FR DUAL LUMEN 43 CM PICC IN THE LEFT BASILIC VEIN. Interventional Vascular Procedure 07/09/17 00: IMPRESSION: SUCCESSFUL PLACEMENT OF A 5 FR DUAL LUMEN 43 CM PICC IN THE LEFT BASILIC VEIN. PICC Line Insertion 07/09/17 00:00 IMPRESSION: SUCCESSFUL PLACEMENT OF A 5 FR DUAL LUMEN 43 CM PICC IN THE LEFT BASILIC VEIN. Renal Ultrasound 07/14/17 00:00 IMPRESSION: 1. Bilateral moderate hydronephrosis, limited assessment. No hydronephrosis noted on May study. CT scan may help to further assess etiology for obstruction. Abdomen/Pelvis CT 07/16/17 00:00 IMPRESSION: Bilateral hydronephrosis and hydroureter similar to the recent ultrasound but not as severe CT in January There is extensive heterogeneous but somewhat generally dense material within the bladder with thickening of the bladder wall. Most likely hemorrhage. Based on previous CT there is underlying tumor as well. Indwelling Babb catheter. Bilateral pleural effusions with basilar opacities left greater than right. Chest X-Ray 07/17/17 00:00 IMPRESSION: NO ACUTE RADIOGRAPHIC FINDING IN THE CHEST. Assessment & Plan - Diagnosis (1) Hypernatremia Is this a current diagnosis for this admission?: Yes Plan: Resolved. Will place on free water 250 cc Q6. BMP in a.m. (2) Dehydration Is this a current diagnosis for this admission?: Yes Plan: Will place pt on Free water 250 cc Q6. (3) Hematuria Qualifiers: Hematuria type: gross Qualified Code(s): R31.0 - Gross hematuria Is this a current diagnosis for this admission?: Yes Plan: Abdomen and pelvis demonstrates evidence of possible mass and bladder S/P 5 units of packed RBCs: Patient continues to have hematuria have spoke with urology again and recommend transferring patient for high-level care. Spoke to family this evening about transfer and plan is to arrange transfer for tomorrow. (4) Hypokalemia Is this a current diagnosis for this admission?: Yes Plan: Resolved (5) ARF (acute renal failure) Qualifiers: Is this a current diagnosis for this admission?: Yes Plan: Resolved (6) Acute cystitis Qualifiers: Hematuria presence: with hematuria Qualified Code(s): N30.01 - Acute cystitis with hematuria Is this a current diagnosis for this admission?: Yes Plan: Enterococcus Faecalis: Zosyn 04/21. (7) CVA (cerebral vascular accident) Qualifiers: CVA mechanism: unspecified Qualified Code(s): I63.9 - Cerebral infarction, unspecified Is this a current diagnosis for this admission?: Yes Plan: Will continue current treatment. (8) Subacute Right subclavian and axillary Is this a current diagnosis for this admission?: Yes Plan: Nonoccluding DVT with question of chronic upper extremity DVT: Recommend repeat ultrasound in 2 weeks. Due to patient's hematuria requiring blood transfusion would not start anticoagulation at this point in addition upper extremity DVT poses lower risk for causing PE. (9) Thrombosis of left upper extremity Is this a current diagnosis for this admission?: Yes Plan: Superficial phlebitis in Basilic Vein: Supportive Care. - Time Time Spent with patient: 15-24 minutes - Spoke to pt's family member Carrie Salgado who states that he is ok with transfer tomorrow.
[2017-07-26 06:52] LABS: HEMATOCRIT 27.8 % (37.9-51.0); HEMOGLOBIN 9.2 g/dL (13.5-17.0); MEAN CORPUSCULAR HEMOGLOBIN 27.4 pg (27.0-33.4); MEAN CORPUSCULAR HGB CONC 33.1 g/dL (32.0-36.0); MEAN CORPUSCULAR VOLUME 83 fl (80-97); PLATELET COUNT 138 10^3/uL (150-450); RED BLOOD COUNT 3.36 10^6/uL (4.35-5.55); RED CELL DISTRIBUTION WIDTH 20.3 % (11.5-14.0)
[2017-07-26 07:22] LABS: ANION GAP 6 (5-19); BLOOD UREA NITROGEN 32 mg/dL (7-20); CALCIUM 8.9 mg/dL (8.4-10.2); CARBON DIOXIDE 28 mmol/L (22-30); CHLORIDE 110 mmol/L (98-107); GLUCOSE 106 mg/dL (75-110); POTASSIUM 5.2 mmol/L (3.6-5.0); SODIUM 143.8 mmol/L (137-145)
[2017-07-26] MEDS: FOLIC ACID 1 MG TABLET PEG SCH (11:08)
[2017-07-26] MEDS: LACTOBACILLUS ACIDOPHILUS 250 MG TAB PEG SCH ×2 (11:08→18:22)
[2017-07-26] MEDS: MULTIVITS W-MIN/IRON SOLN 60 ML PEG SCH (11:09)
[2017-07-26] MEDS: LANSOPRAZOLE 30 MG TAB.RAP.DR PEG SCH ×2 (11:09→18:22)
[2017-07-26] MEDS: NORMAL SALINE 10 ML SDV (SCHEDULED) IV SCH ×2 (11:09→22:41)
[2017-07-26] MEDS: FINASTERIDE 5 MG TABLET PO SCH (11:09)
[2017-07-26] MEDS: ASCORBIC ACID 500 MG TABLET PEG SCH ×3 (11:09→18:22)
[2017-07-26] MEDS: CARVEDILOL 12.5 MG TABLET PEG SCH ×2 (11:10→22:41)
[2017-07-26] MEDS: FERROUS SULFATE LIQUID 300 MG/5 ML UDC PEG SCH ×2 (11:10→18:22)
[2017-07-26] MEDS: INSULIN GLARGINE,HUM.REC.ANLOG 1,000 UNIT/10 ML UNIT SUBCUT SCH (11:18)
--- NOTE | 2017-07-26 13:03 | PDOC TRANSFER SUMMARY ---
General Admission Date/PCP: 07/09/17 05:27 Admission Date: 07/09/17 Transfer Date: 07/26/17 Accepting Facility: [facility] Resuscitation Status: Full Code - Transfer Diagnosis (1) Hematuria Is this a current diagnosis for this admission?: Yes Diagnosis Summary: Bladder Mass with hemorrhage: Pt has been on CBI for several days. Contacted Dr. Tuttle to make him aware that pt is once again have significant hematuria. He stated that he was in [place] and would need to be transferred. We have not had Urology for [address] Doroteo Little agreed to care for pt and requested that pt be made NPO for procedure. (2) Hypernatremia Is this a current diagnosis for this admission?: Yes Diagnosis Summary: Pt was noted to have Sodium of 182. Pt given free water and sodium improved. Pt Free water bolus 250cc Q6. (3) Dehydration Is this a current diagnosis for this admission?: Yes Diagnosis Summary: Resolved. Pt on Free Water 250cc Q6 hours. (4) Hypokalemia Is this a current diagnosis for this admission?: Yes Diagnosis Summary: Resolved. (5) ARF (acute renal failure) Is this a current diagnosis for this admission?: Yes Diagnosis Summary: in setting of CKD Stage 2: Resolved with IVFs. (6) Acute cystitis Is this a current diagnosis for this admission?: Yes Diagnosis Summary: Secondary to Enterococcus Faecalis: Completed 10 days of Zosyn. (7) CVA (cerebral vascular accident) Is this a current diagnosis for this admission?: Yes Diagnosis Summary: Supportive care (8) Subacute Right subclavian and axillary Is this a current diagnosis for this admission?: Yes Diagnosis Summary: DVT non occlusive: Recommend repeat U/S in 2 weeks. Pt not able to be on anticoagulation due to Hematuria. (9) Thrombosis of left upper extremity Is this a current diagnosis for this admission?: Yes Diagnosis Summary: Supportive care. (10) Acute blood loss anemia Is this a current diagnosis for this admission?: Yes Diagnosis Summary: S/P 5 units of PRBCs: Pt hemoglobin has been stable since that 20 of July. - Transfer Medications Home Medications: Acetaminophen [Acetaminophen ER] 650 mg PEG Q6HP PRN 07/09/17 Ascorbic Acid [Vitamin C 500 mg Tablet] 500 mg PEG TID 07/09/17 Atorvastatin Calcium [Lipitor 10 mg Tablet] 10 mg PEG QHS 07/09/17 Carvedilol [Coreg 12.5 mg Tablet] 12.5 mg PEG Q12 07/09/17 Doxazosin Mesylate [Cardura 2 mg Tablet] 2 mg PEG DAILY 07/09/17 Finasteride [Proscar 5 mg Tablet] 5 mg PEG DAILY 07/09/17 Folic Acid [Folvite 1 mg Tablet] 1 mg PEG DAILY 07/09/17 Insulin Lispro [Humalog Insulin (Lispro) 100 unit/mL] 0 unit SUBCUT Q6HP PRN Lansoprazole [Prevacid 30 mg Odt Tablet] 30 mg PEG BID 07/09/17 Latanoprost [Xalatan 0.005% Oph Soln 2.5 ml] 1 drop OU QHS 07/09/17 Polyethylene Glycol 3350 [Miralax Powder 17 gm/Packet] 17 gm PEG DAILY 07/09/17 Sennosides/Docusate 8.6-50 mg [Senna Plus Tablet] 1 tab PEG BIDP PRN 07/09/17 Transfer Medications: Current Medications Acetaminophen (Tylenol 325 Mg Tablet) 650 mg PEG Q4HP PRN Stop: 08/08/17 04:31 Last Admin: 07/19/17 18:33 Dose: 650 mg Ascorbic Acid (Vitamin C 500 Mg Tablet) 500 mg PEG TID [facility] Stop: 08/08/17 09:59 Last Admin: 07/26/17 11:09 Dose: 500 mg Carvedilol (Coreg 12.5 Mg Tablet) 12.5 mg PEG Q12 [facility] Stop: 08/08/17 09:59 Last Admin: 07/26/17 11:10 Dose: Not Given Dextrose (Dextrose Inj 50% Syringe (25 Gm/50 Ml)) 12.5 gm IV PRN PRN; Protocol PRN Reason: FOR BG 50-69 IN ALERT PATIENT Stop: 08/08/17 05:12 Dextrose (Dextrose Inj 50% Syringe (25 Gm/50 Ml)) 25 gm IV PRN PRN PRN Reason: Protocol Stop: 08/08/17 05:12 Doxazosin Mesylate (Cardura 2 Mg Tablet) 2 mg PEG QHS [facility] Stop: 08/08/17 21:59 Last Admin: 07/25/17 23:11 Dose: Not Given Ferrous Gluconate (Certavite Multivit/Minerals/Iron Soln) 15 ml PEG DAILY [facility] Stop: 08/09/17 09:59 Last Admin: 07/26/17 11:09 Dose: 15 ml Ferrous Sulfate (Ferrous Sulfate Liquid 300 Mg/5 Ml Udcup) 300 mg PEG BID SO Stop: 08/08/17 09:59 Last Admin: 07/26/17 11:10 Dose: 300 mg Finasteride (Proscar 5 Mg Tablet) 5 mg PO DAILY SO Stop: 08/08/17 09:59 Last Admin: 07/26/17 11:09 Dose: 5 mg Folic Acid (Folvite 1 Mg Tablet) 1 mg PEG DAILY SO Stop: 08/08/17 09:59 Last Admin: 07/26/17 11:08 Dose: 1 mg Glucagon (Glucagen Inj 1 Mg Vial) 1 mg IM PRN PRN; Protocol PRN Reason: Evaluate for BG < 70 Stop: 08/08/17 05:12 Glucose (Glutose 40% Gel 15 Gm Tube) 15 gm PO PRN PRN; Protocol PRN Reason: FOR BG 50-69 IN ALERT PATIENT Stop: 08/08/17 05:12 Glucose (Glutose 40% Gel 15 Gm Tube) 30 gm PO PRN PRN; Protocol PRN Reason: FOR BG < 50 IN ALERT PATIENT Stop: 08/08/17 05:12 Heparin Sodium (Porcine) (Heparin Flush 10 Unit/Ml 5 Ml Disp.Syrg) 30 unit IV Q12 SO Stop: 08/18/17 09:59 Last Admin: 07/26/17 11:09 Dose: 30 unit Heparin Sodium (Porcine) (Heparin Flush 10 Unit/Ml 5 Ml Disp.Syrg) 30 unit IV .AFTER EACH USE PRN Stop: 08/18/17 09:31 Last Admin: 07/23/17 21:38 Dose: 30 unit Insulin Glargine (Lantus Insulin 100 Unit/1 Ml 10 Ml) 8 unit SUBCUT DAILY SO Stop: 08/19/17 09:59 Last Admin: 07/26/17 11:18 Dose: 8 unit Insulin Human Lispro (Humalog Insulin 100 Unit/1 Ml 3 Ml Vial) 0 - 12 unit SUBCUT Q6HP PRN PRN Reason: Protocol Stop: 08/08/17 05:12 Last Admin: 07/24/17 08:53 Dose: 4 unit Lactobacillus Acidophilus (Bacid 250 Mg Tablet) 500 mg PEG BID [facility] Stop: 08/13/17 09:59 Last Admin: 07/26/17 11:08 Dose: 500 mg Lansoprazole (Prevacid 30 Mg Odt Tablet) 30 mg PEG BID SO Stop: 08/08/17 09:59 Last Admin: 07/26/17 11:09 Dose: 30 mg Latanoprost (Xalatan 0.005% Oph Soln 2.5 Ml) 1 drop OU QHS SO Stop: 08/08/17 21:59 Last Admin: 07/25/17 23:23 Dose: 1 drop Senna/Docusate Sodium (Senna Plus Tablet) 1 each PEG BIDP PRN PRN Reason: FOR CONSTIPATION Stop: 08/08/17 04:39 Sodium Chloride (Saline Flush 2.5 Ml Monoject Prefil Syrin) 2.5 ml IV Q8 SO Stop: 08/12/17 21:59 Last Admin: 07/26/17 05:48 Dose: 2.5 ml Sodium Chloride (Nacl 0.9% Inj/Pf 10 Ml Sdv) 10 ml IV Q12 SO Stop: 08/18/17 09:59 Last Admin: 07/26/17 11:09 Dose: 10 ml Sodium Chloride (Nacl 0.9% Inj/Pf 10 Ml Sdv) 10 ml IV .AFTER EACH USE PRN Stop: 08/18/17 09:31 Last Admin: 07/23/17 11:42 Dose: 10 ml - Allergies Allergies/Adverse Reactions: No Known Allergies Allergy (Verified 02/22/17 11:56) - Diet/Activity Discharge Diet: Other (Comments) - NPO Discharge Activity: Other - bedrest. Hospital Course Hospital Course: Pt is a 76 year old with past medical history of Dementia, Prior Strok, bedbound , aphasic, aspiration risk, PEG tube, CAD, CHF with EF 40%, hypertension, PAD, HLD, Left BKA, Right great toe amputation, Chronic indwelling babb catheter, and diabetes presented with Hypernatremia and hematuria. Hematuria was thought to be due to trauma. Pt was seen by urology who ordered CBI. Pt was found to have Enterococcus Acute Cystitis with Babb in place POA. Pt was placed on Zosyn for 10 days. Pt completed treatment and babb was changed. Pt hypernatremia was corrected with IVFs. Pt was placed on Free Water at 250 cc Q6 hours. Pt was found to have Bladder mass on CT on 07/16/17 at that time urine was starting to clear but during my week pt redevelopment gross bloody urine with clots. Dr. Tuttle was contacted who recommended transfer to another hospital for Urology services. Contacted Dr. Doroteo Little who agree to accept pt. We have not had Urology services for 3 days. Physical Exam Vital Signs: Temp Pulse Resp BP Pulse Ox 98.3 F 72 19 92/58 L 100 07/26/17 11:03 07/26/17 11:03 07/26/17 11:03 07/26/17 11:03 07/26/17 11:03 Intake & Output 07/25/17 07/26/17 07/27/17 06:59 06:59 06:59 Intake Total 48889 00853 574 Output Total 55394 4000 Balance 16623 27999 574 Weight 89.1 kg 94.1 kg General appearance: PRESENT: no acute distress, well-developed, well-nourished Head exam: PRESENT: atraumatic Eye exam: PRESENT: conjunctiva pink, EOMI Ear exam: PRESENT: bleeding Mouth exam: PRESENT: moist, tongue midline Neck exam: ABSENT: carotid bruit, JVD, lymphadenopathy, thyromegaly Respiratory exam: PRESENT: clear to auscultation joaquin. ABSENT: rales, rhonchi, wheezes Cardiovascular exam: PRESENT: RRR. ABSENT: diastolic murmur, rubs, systolic murmur Pulses: PRESENT: normal dorsalis pedis pul Vascular exam: PRESENT: normal capillary refill GI/Abdominal exam: PRESENT: normal bowel sounds, other - Gtube in place, Rectal exam: PRESENT: deferred Extremities exam: PRESENT: other - Right foot great toe amputation, Left BKA. ABSENT: calf tenderness, clubbing, pedal edema Neurological exam: PRESENT: alert, awake, oriented to person Psychiatric exam: PRESENT: flat affect. ABSENT: homicidal ideation, suicidal ideation Results Laboratory Results: 07/26/17 05:40 07/26/17 05:40 07/26/17 07/26/17 05:40 05:40 WBC 6.0 RBC 3.36 L Hgb 9.2 L Hct 27.8 L MCV 83 MCH 27.4 MCHC 33.1 RDW 20.3 H Plt Count 138 L Sodium 143.8 Potassium 5.2 H Chloride 110 H Carbon Dioxide 28 Anion Gap 6 BUN 32 H Creatinine 1.03 Est GFR ( Amer) > 60 Est GFR (Non-Af Amer) > 60 Glucose 106 Calcium 8.9 Impressions: Guidance Fluoroscopy 07/09/17 00:00 IMPRESSION: SUCCESSFUL PLACEMENT OF A 5 FR DUAL LUMEN 43 CM PICC IN THE LEFT BASILIC VEIN. Interventional Vascular Procedure 07/09/17 00:00 IMPRESSION: SUCCESSFUL PLACEMENT OF A 5 FR DUAL LUMEN 43 CM PICC IN THE LEFT BASILIC VEIN. PICC Line Insertion 07/09/17 00: IMPRESSION: SUCCESSFUL PLACEMENT OF A 5 FR DUAL LUMEN 43 CM PICC IN THE LEFT BASILIC VEIN. Renal Ultrasound 07/14/17 00:00 IMPRESSION: 1. Bilateral moderate hydronephrosis, limited assessment. No hydronephrosis noted on May study. CT scan may help to further assess etiology for obstruction. Abdomen/Pelvis CT 07/16/17 00:00 IMPRESSION: Bilateral hydronephrosis and hydroureter similar to the recent ultrasound but not as severe CT in January There is extensive heterogeneous but somewhat generally dense material within the bladder with thickening of the bladder wall. Most likely hemorrhage. Based on previous CT there is underlying tumor as well. Indwelling Babb catheter. Bilateral pleural effusions with basilar opacities left greater than right. Chest X-Ray 07/17/17 00:00 IMPRESSION: NO ACUTE RADIOGRAPHIC FINDING IN THE CHEST. Plan Time Spent: Greater than 30 Minutes
[2017-07-26 21:29] VITALS: BP 125/94
[2017-07-26] MEDS: DOXAZOSIN MESYLATE 2 MG TABLET PEG SCH (22:41)
[2017-07-26] MEDS: LATANOPROST 0.005% OPH SOLN 2.5 ML OU SCH (22:41)
== END 2017-07-26 23:45 | disposition short-term general hospital (02) | DRG 699 ==
LOC: ER 01:17 → EH 05:27 → 3W 07:39 → 4N 07-21 22:25
PROVIDERS: ADMIT Family Medicine; ATTEND Family Medicine
PROC: 02HV33Z Insertion of Infusion Device into Superior Vena Cava, Percutaneous Approach (ICD-10-PCS; principal; 2017-07-09)
PROC: B5181ZA Fluoroscopy of Superior Vena Cava using Low Osmolar Contrast, Guidance (ICD-10-PCS; 2017-07-09)
PROC: B548ZZA Ultrasonography of Superior Vena Cava, Guidance (ICD-10-PCS; 2017-07-09)
PROC: 30233N1 Transfusion of Nonautologous Red Blood Cells into Peripheral Vein, Percutaneous Approach (ICD-10-PCS; 2017-07-12)
PROC: 30233N1 Transfusion of Nonautologous Red Blood Cells into Peripheral Vein, Percutaneous Approach (ICD-10-PCS; 2017-07-13)
PROC: 30233N1 Transfusion of Nonautologous Red Blood Cells into Peripheral Vein, Percutaneous Approach (ICD-10-PCS; 2017-07-18)
DX: T83.511A Infection and inflammatory reaction due to indwelling urethral catheter, initial encounter (principal); E87.0 Hyperosmolality and hypernatremia; N30.01 Acute cystitis with hematuria; N17.9 Acute kidney failure, unspecified; I82.622 Acute embolism and thrombosis of deep veins of left upper extremity; D62 Acute posthemorrhagic anemia; I50.32 Chronic diastolic (congestive) heart failure; I82.721 Chronic embolism and thrombosis of deep veins of right upper extremity; B95.2 Enterococcus as the cause of diseases classified elsewhere; N32.9 Bladder disorder, unspecified; E86.0 Dehydration; E87.6 Hypokalemia; I12.9 Hypertensive chronic kidney disease with stage 1 through stage 4 chronic kidney disease, or unspecified chronic kidney disease; N18.2 Chronic kidney disease, stage 2 (mild); E11.22 Type 2 diabetes mellitus with diabetic chronic kidney disease; I48.0 Paroxysmal atrial fibrillation; I25.10 Atherosclerotic heart disease of native coronary artery without angina pectoris; K21.9 Gastro-esophageal reflux disease without esophagitis; E11.59 Type 2 diabetes mellitus with other circulatory complications; I69.391 Dysphagia following cerebral infarction; R13.10 Dysphagia, unspecified; E78.5 Hyperlipidemia, unspecified; I73.9 Peripheral vascular disease, unspecified; M19.90 Unspecified osteoarthritis, unspecified site; F03.90 Unspecified dementia, unspecified severity, without behavioral disturbance, psychotic disturbance, mood disturbance, and anxiety; Z79.02 Long term (current) use of antithrombotics/antiplatelets; Z79.4 Long term (current) use of insulin; Z79.899 Other long term (current) drug therapy; Z93.1 Gastrostomy status; Z74.01 Bed confinement status; Z95.810 Presence of automatic (implantable) cardiac defibrillator; Z89.411 Acquired absence of right great toe; Z89.512 Acquired absence of left leg below knee; Z95.5 Presence of coronary angioplasty implant and graft
CPT/HCPCS: 36415; 36430; 36569; 71045; 74176; 76770; 76937; 77001; 80048; 80053; 81001; 82040; 82962; 83735; 84100; 85025; 85027; 86850; 86900; 86901; 86920; 87086; 87088; 87186; 87324; 93971; 96360; 99284; C1769; J1642; J1815; J1940; J2060; J2543; J3480; J3490; J7040; J7050; J7060; P9016

== ENCOUNTER 2017-08-04 19:42 | Emergency (ER) | payer MEDICARE, MEDICAID ==
[2017-08-04 21:34] LABS: ABSOLUTE EOSINOPHILS # (AUTO) 0.2 10^3/uL (0.0-0.6); ABSOLUTE LYMPHOCYTES (AUTO) 1.1 10^3/uL (0.5-4.7); ABSOLUTE MONOCYTES (AUTO) 0.3 10^3/uL (0.1-1.4); ABSOLUTE NEUT (AUTO) 3.4 10^3/uL (1.7-8.2); BASOPHILS % (AUTO) 0.8 % (0-2); EOSINOPHILS % (AUTO) 4.4 % (0-6); HEMATOCRIT 29.9 % (37.9-51.0); HEMOGLOBIN 9.8 g/dL (13.5-17.0); LYMPHOCYTES % (AUTO) 21.7 % (13-45); MEAN CORPUSCULAR HEMOGLOBIN 27.2 pg (27.0-33.4); MEAN CORPUSCULAR HGB CONC 32.7 g/dL (32.0-36.0); MEAN CORPUSCULAR VOLUME 83 fl (80-97); MONOCYTES % (AUTO) 5.7 % (3-13); PLATELET COUNT 171 10^3/uL (150-450); RED BLOOD COUNT 3.59 10^6/uL (4.35-5.55); RED CELL DISTRIBUTION WIDTH 20.4 % (11.5-14.0); SEGMENTED NEUTROPHILS % (AUTO) 67.4 % (42-78); TOTAL CELLS COUNTED % (AUTO) 100 %
[2017-08-04 21:52] LABS: ANION GAP 6 (5-19); BLOOD UREA NITROGEN 39 mg/dL (7-20); CALCIUM 9.5 mg/dL (8.4-10.2); CARBON DIOXIDE 29 mmol/L (22-30); CHLORIDE 109 mmol/L (98-107); GLUCOSE 137 mg/dL (75-110); POTASSIUM 5.1 mmol/L (3.6-5.0); SODIUM 144.1 mmol/L (137-145)
--- NOTE | 2017-08-04 23:09 | ER Document Report ---
ED General - General Chief Complaint: Inability to Void Stated Complaint: UNABLE TO URINATE Time Seen by Provider: 08/04/17 19:50 Mode of Arrival: Medic Information source: Patient Notes: This is a 76-year-old man with a history of CVA, dementia, with PEG tube and chronic Catalan. Patient has been treated for hematuria lately. He recently had a Catalan change at [facility] and he was sent in because of a Catalan not draining. The patient is alert and oriented and he is nonverbal. But he does not appear to be in any pain. TRAVEL OUTSIDE OF THE [place] IN LAST 30 DAYS: No - HPI Onset: Last week Onset/Duration: Gradual Quality of pain: No pain Severity: None Pain Level: Denies Associated symptoms: denies: Chills, Fever Exacerbated by: Denies Relieved by: Denies Similar symptoms previously: Yes Recently seen / treated by doctor: Yes - Related Data Allergies/Adverse Reactions: No Known Allergies Allergy (Verified 02/22/17 11:56) Past Medical History - General Information source: Patient - Social History Smoking Status: Never Smoker Cigarette use (# per day): No Chew tobacco use (# tins/day): No Frequency of alcohol use: None Drug Abuse: None Lives with: Family Family History: Reviewed & Not Pertinent, Other - Unobtainable Patient has suicidal ideation: No Patient has homicidal ideation: No - Past Medical History Cardiac Medical History: Reports: Hx Congestive Heart Failure, Hx Coronary Artery Disease - stent x 1, Hx Heart Attack - 2004, Hx Hypercholesterolemia, Hx Hypertension, Hx Peripheral Vascular Disease Pulmonary Medical History: Reports: Hx Asthma - as child Denies: Hx Bronchitis, Hx COPD, Hx Pneumonia, Hx Tuberculosis Neurological Medical History: Denies: Hx Seizures Endocrine Medical History: Reports: Hx Diabetes Mellitus Type 2 Renal/ Medical History: Reports: Hx Benign Prostatic Hyperplasia. Denies: Hx Peritoneal Dialysis GI Medical History: Reports: Hx Gastroesophageal Reflux Disease. Denies: Hx Hiatal Hernia, Hx Ulcer Musculoskeltal Medical History: Reports Hx Arthritis, Reports Hx Musculoskeletal Deformity - BKA Psychiatric Medical History: Reports: Hx Dementia, Hx Depression Denies: Hx Attention Deficit Hyperactivity Disorder, Hx Bipolar Disorder, Hx Schizophrenia Past Surgical History: Reports: Hx Abdominal Surgery, Hx Cardiac Surgery - defibrillator, Hx Internal Defibrillator, Hx Orthopedic Surgery - left BKA, Hx Vascular Surgery - left groin, Other - PEG tube. Denies: Hx Open Heart Surgery - Immunizations Hx Diphtheria, Pertussis, Tetanus Vaccination: No Review of Systems - Review of Systems Constitutional: denies: Chills, Fever EENT: No symptoms reported Cardiovascular: No symptoms reported Respiratory: No symptoms reported Gastrointestinal: No symptoms reported Genitourinary: See HPI Male Genitourinary: See HPI Musculoskeletal: No symptoms reported Skin: No symptoms reported Hematologic/Lymphatic: No symptoms reported Neurological/Psychological: No symptoms reported Physical Exam - Vital signs Vitals: BP 155/73 H 08/04/17 20:01 Notes: Physical exam: GENERAL: 26-year-old man, nonverbal, alert, no acute distress HEAD: Atraumatic, normocephalic. EYES: Pupils equal round and reactive to light, extraocular movements intact, sclera anicteric, conjunctiva are normal. ENT: TMs normal, nares patent, oropharynx clear without exudates. Moist mucous membranes. NECK: Normal range of motion, supple without obvious mass or JVD. LUNGS: Breath sounds clear to auscultation bilaterally and equal. No wheezes rales or rhonchi. HEART: Regular rate and rhythm without murmurs, rubs or gallops. ABDOMEN: Soft, normoactive bowel sounds. He has a PEG tube in the site is clear. There is no tenderness. There is no suprapubic fullness. Penis: Patient does have a chronic Catalan with erosion of the urethra on the volar aspect of the penis. There is nothing draining from the Catalan. EXTREMITIES: Normal range of motion, no pitting or edema. No clubbing or cyanosis. NEUROLOGICAL: Cranial nerves II through XII grossly intact. Normal speech, moving all extremities. PSYCH: Normal mood, normal affect. SKIN: Warm, Dry, normal turgor, no rashes or lesions noted. Course - Re-evaluation Re-evalutation: 08/04/17 23:05 We did try and flush the Catalan. This was unsuccessful. We did try and change out the Catalan but it does not draining much. Bedside ultrasound shows that there is some urine in the bladder but it is not excessively distended. His abdomen is soft and nontender. I have discussed the case with the urologist out [facility] and is recommended that the patient go to the clinic first thing in the morning ([address] Blankenship). He did take the patient's name. I called Dr. Rosales who is usp doc covering for the patient discussed the situation and he was okay with the plan. Patient's white count was normal and his BUN and creatinine baseline. - Vital Signs Vital signs: Temp Pulse Resp BP Pulse Ox 98.6 F 74 16 132/66 H 98 08/05/17 00:27 08/04/17 23:38 08/05/17 00:27 08/05/17 00:27 08/05/17 00:27 - Laboratory Result Diagrams: 08/04/17 21:20 08/04/17 21:20 Laboratory results interpreted by me: 08/04/17 08/04/17 21:20 21:20 RBC 3.59 L Hgb 9.8 L Hct 29.9 L RDW 20.4 H Potassium 5.1 H Chloride 109 H BUN 39 H Glucose 137 H Discharge - Discharge Clinical Impression: Obstructive uropathy Condition: Stable Disposition: HOME, SELF-CARE Additional Instructions: The plan is to continue the medicines. Follow-up with the urologist at 8 AM tomorrow morning. Transfer the patient to the office to see Dr. Blankenship. The urologist mely took Mr. White's name and said to go right to the office at 8 AM. Let the law firm receptionist know that the ER doctor had spoken to the urologist on- call last night who recommended the patient go to the office at [address] Rosales was made aware of the plan. It is recommended that you follow-up with a urologist: [facility] Office [address] [place] [address]. [place], [place] [phone]
[2017-08-05 00:46] VITALS: BP 132/66
== END 2017-08-05 00:46 | disposition home or self-care (01) ==
LOC: ER 19:42
DX: N13.9 Obstructive and reflux uropathy, unspecified (principal); R31.9 Hematuria, unspecified; R33.9 Retention of urine, unspecified; Z86.73 Personal history of transient ischemic attack (TIA), and cerebral infarction without residual deficits
CPT/HCPCS: 36415; 80048; 85025; 99284

== ENCOUNTER 2017-08-06 00:09 | Emergency (ER) | payer MEDICARE, MEDICAID ==
--- NOTE | 2017-08-06 01:08 | ER Document Report ---
ED General - General Stated Complaint: POSSIBLE BLOOD IN URINE Time Seen by Provider: 08/06/17 00:55 Notes: Patient is a 76-year-old male who presents with complaint of hematuria and urinary retention. Shortly after patient arrived the nurses to replace his Catalan catheter and since then he has had over 1600 mL's of bloody urine out. Patient's pain is much improved. Patient is nonverbal due to stroke, but is awake and alert and able to nod his head yes and no. I was reviewing patient's records and appears that he has had recurrent issues with hematuria. He was actually transferred to [facility] on July 09 and was accepted by the urologist, Dr. Little. Records showed that they placed a 24 Fr 3way catheter and continuously irrigated until cleared. TRAVEL OUTSIDE OF THE [place] IN LAST 30 DAYS: No - Related Data Allergies/Adverse Reactions: No Known Allergies Allergy (Verified 02/22/17 11:56) Past Medical History - Social History Smoking Status: Never Smoker Frequency of alcohol use: None Drug Abuse: None Family History: Reviewed & Not Pertinent, Other - Unobtainable - Past Medical History Cardiac Medical History: Reports: Hx Congestive Heart Failure, Hx Coronary Artery Disease - stent x 1, Hx Heart Attack - 2003, Hx Hypercholesterolemia, Hx Hypertension, Hx Peripheral Vascular Disease Pulmonary Medical History: Reports: Hx Asthma - as child Denies: Hx Bronchitis, Hx COPD, Hx Pneumonia, Hx Tuberculosis Neurological Medical History: Denies: Hx Seizures Endocrine Medical History: Reports: Hx Diabetes Mellitus Type 2 Renal/ Medical History: Reports: Hx Benign Prostatic Hyperplasia. Denies: Hx Peritoneal Dialysis GI Medical History: Reports: Hx Gastroesophageal Reflux Disease. Denies: Hx Hiatal Hernia, Hx Ulcer Musculoskeltal Medical History: Reports Hx Arthritis, Reports Hx Musculoskeletal Deformity - BKA Psychiatric Medical History: Reports: Hx Dementia, Hx Depression Denies: Hx Attention Deficit Hyperactivity Disorder, Hx Bipolar Disorder, Hx Schizophrenia Past Surgical History: Reports: Hx Abdominal Surgery, Hx Cardiac Surgery - defibrillator, Hx Internal Defibrillator, Hx Orthopedic Surgery - left BKA, Hx Vascular Surgery - left groin, Other - PEG tube. Denies: Hx Open Heart Surgery - Immunizations Hx Diphtheria, Pertussis, Tetanus Vaccination: No Review of Systems - Review of Systems Notes: My Normal Review Basic REVIEW OF SYSTEMS: CONSTITUTIONAL : Denies fever, chills, or sweats. Denies recent illness. RESPIRATORY: Denies cough, cold, or chest congestion. Denies shortness of breath, difficulty breathing, or wheezing. GASTROINTESTINAL: Denies abdominal pain. Denies nausea, vomiting, or diarrhea. Denies constipation. Last BM: GENITOURINARY: Catalan catheter obstruction with chronic hematuria. MUSCULOSKELETAL: Denies neck or back pain or joint pain or swelling. SKIN: Denies rash or skin lesions. NEUROLOGICAL: Denies altered mental status or loss of consciousness. Denies headache. Denies weakness or paralysis or loss of use of either side. Denies problems with gait or speech. Denies sensory or motor loss. ALL OTHER SYSTEMS REVIEWED AND NEGATIVE. Physical Exam - Vital signs Vitals: Temp Pulse Resp BP Pulse Ox 99.1 F 93 20 99/52 L 96 08/06/17 01:46 08/06/17 01:46 08/06/17 01:46 08/06/17 01:46 08/06/17 01:46 - Notes Notes: General Appearance: Well nourished, alert, cooperative, no acute distress, no obvious discomfort. Vitals: reviewed, See vital signs table. Eyes: PERRL, EOMI, Conjuctiva clear Mouth: No decreasd moisture Lungs: No wheezing, No rales, No rhonci, No accessory muscle use, good air exchange bilaterally. 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 Bloody urine coming from Catalan catheter. Extremities: strength 5/5 in all extremities, good pulses in all extremities, no swelling or tenderness in the extremities, no edema. Skin: warm, dry, appropriate color, no rash Neuro: Patient is awake alert and follows commands appropriately. Patient unable to speak appropriately due to previous stroke. Course - Re-evaluation Re-evalutation: 08/06/17 05:13 Has been irrigating patient's bladder for 4 hours. I stopped irrigation several times in the urine immediately starts to turn bloody again and instructed to call off again. I then have to restart irrigation. Have tried this 3 different times but he continues to re-clot. I therefore called Dr. Kruse, urologist covering for Dr. Ching. He agrees to starting antibiotics as patient does have some slight enlargement of white blood cells in urine as well. Recommends Rocephin. Have ordered the Rocephin. He then agrees patient should be transferred there. I am a bedside ultrasound I do see a large amount of clot burden within his bladder. This could also potentially be lateral mass. I suspect it is more clot burden. The concern of course is that he has chronic recurrent bleeding and now to the point that he continues a clot of his catheter eventually leading to urinary retention. We have will continue to [facility] Patient will be monitored while here in the ER. Dictation of this chart was performed using voice recognition software; therefore, there may be some unintended grammatical errors. - Vital Signs Vital signs: Temp Pulse Resp BP Pulse Ox 98.7 F 75 18 98/47 L 94 08/06/17 03:38 08/06/17 03:38 08/06/17 03:38 08/06/17 03:38 08/06/17 03:38 - Laboratory Result Diagrams: 08/06/17 02:00 08/06/17 02:00 Laboratory results interpreted by me: 08/06/17 08/06/17 08/06/17 02:00 02:00 02:00 RBC 3.64 L Hgb 9.9 L Hct 30.2 L RDW 20.3 H Chloride 109 H BUN 52 H Creatinine 1.38 H Est GFR (Non-Af Amer) 50 L Glucose 172 H Urine Protein >=500 H Urine Glucose (UA) 50 H Urine Blood MODERATE H Urine Ascorbic Acid 40 H Discharge - Discharge Clinical Impression: Hematuria Qualifiers: Hematuria type: unspecified type Qualified Code(s): R31.9 - Hematuria, unspecified Urinary tract infection with hematuria Qualifiers: Urinary tract infection type: site unspecified Qualified Code(s): N39.0 - Urinary tract infection, site not specified Condition: Good Disposition: [facility]
[2017-08-06 02:23] LABS: HEMATOCRIT 30.2 % (37.9-51.0); HEMOGLOBIN 9.9 g/dL (13.5-17.0); MEAN CORPUSCULAR HEMOGLOBIN 27.3 pg (27.0-33.4); MEAN CORPUSCULAR HGB CONC 32.9 g/dL (32.0-36.0); MEAN CORPUSCULAR VOLUME 83 fl (80-97); PLATELET COUNT 181 10^3/uL (150-450); RED BLOOD COUNT 3.64 10^6/uL (4.35-5.55); RED CELL DISTRIBUTION WIDTH 20.3 % (11.5-14.0); WHITE BLOOD COUNT 7.4 10^3/uL (4.0-10.5)
[2017-08-06 02:29] LABS: ANION GAP 8 (5-19); BLOOD UREA NITROGEN 52 mg/dL (7-20); CALCIUM 9.8 mg/dL (8.4-10.2); CARBON DIOXIDE 27 mmol/L (22-30); CHLORIDE 109 mmol/L (98-107); GLUCOSE 172 mg/dL (75-110); POTASSIUM 4.9 mmol/L (3.6-5.0); SODIUM 143.5 mmol/L (137-145)
[2017-08-06 02:48] LABS: ANISOCYTOSIS 2+; OVALOCYTES SLIGHT; PLATELET COMMENT ADEQUATE; POIKILOCYTOSIS SLIGHT
[2017-08-06 02:51] LABS: APPEARANCE,URINE SLIGHTLY-CLOUDY; BILIRUBIN,URINE NEGATIVE (NEGATIVE); GLUCOSE, URINE 50 mg/dL (NEGATIVE); KETONES,URINE NEGATIVE (NEGATIVE); LEUKOCYTE ESTERASE,URINE NEGATIVE (NEGATIVE); NITRITE,URINE NEGATIVE (NEGATIVE); PROTEIN,URINE >=500 mg/dL (NEGATIVE); UROBILINOGEN,URINE NEGATIVE mg/dL (<2.0)
[2017-08-06 02:52] LABS: COLOR,URINE RED
[2017-08-06] MEDS ORDERED: CEFTRIAXONE INJ 1000 MG VIAL IV ONE (04:56)
--- NOTE | 2017-08-06 11:35 | ER Document Report ---
Doctor's Note Notes: 08/06/17 11:35 Patient is stable at this time, transfer is here to take him
[2017-08-06 11:44] VITALS: BP 147/118
== END 2017-08-06 11:45 | disposition short-term general hospital (02) ==
LOC: ER 00:09
DX: N39.0 Urinary tract infection, site not specified (principal); R31.9 Hematuria, unspecified; D29.1 Benign neoplasm of prostate; K21.9 Gastro-esophageal reflux disease without esophagitis; I50.9 Heart failure, unspecified; I25.10 Atherosclerotic heart disease of native coronary artery without angina pectoris; E78.00 Pure hypercholesterolemia, unspecified; I11.0 Hypertensive heart disease with heart failure; E11.9 Type 2 diabetes mellitus without complications; Z95.810 Presence of automatic (implantable) cardiac defibrillator; Z89.512 Acquired absence of left leg below knee; I25.2 Old myocardial infarction
CPT/HCPCS: 99285; 96365; 36415; 87040; 87086; 85025; 87088; 80048; 81001; 87186; J0696

== ENCOUNTER 2017-09-18 14:55 | Inpatient (IN) | payer MEDICARE, MEDICAID ==
[2017-09-18] MEDS ORDERED: MEROPENEM 1 GM VIAL IV ONE (15:13)
[2017-09-18] MEDS ORDERED: VANCOMYCIN HCL INJ 1000 MG VIAL IV ONE (15:13)
--- NOTE | 2017-09-18 15:19 | ER Document Report ---
ED General - General Stated Complaint: ALTERED MENTAL STATUS Time Seen by Provider: 09/18/17 15:09 Notes: 76-year-old male with diabetes, old stroke dysphagia neurogenic bladder indwelling Catalan and multiple urinary tract infections presents with increasing confusion from [facility]. He was diagnosed with urinary tract infection about a week ago and is receiving, apparently, gentamicin IV at the facility but they have been unable to dose him this afternoon secondary to poor IV access TRAVEL OUTSIDE OF THE [place] IN LAST 30 DAYS: No - Related Data Allergies/Adverse Reactions: No Known Allergies Allergy (Verified 02/22/17 11:56) Past Medical History - Social History Smoking Status: Current Every Day Smoker Family History: Reviewed & Not Pertinent, Other - Unobtainable - Past Medical History Cardiac Medical History: Reports: Hx Congestive Heart Failure, Hx Coronary Artery Disease - stent x 1, Hx Heart Attack - 2003, Hx Hypercholesterolemia, Hx Hypertension, Hx Peripheral Vascular Disease Pulmonary Medical History: Reports: Hx Asthma - as child Denies: Hx Bronchitis, Hx COPD, Hx Pneumonia, Hx Tuberculosis Neurological Medical History: Denies: Hx Seizures Endocrine Medical History: Reports: Hx Diabetes Mellitus Type 2 Renal/ Medical History: Reports: Hx Benign Prostatic Hyperplasia. Denies: Hx Peritoneal Dialysis GI Medical History: Reports: Hx Gastroesophageal Reflux Disease. Denies: Hx Hiatal Hernia, Hx Ulcer Musculoskeltal Medical History: Reports Hx Arthritis, Reports Hx Musculoskeletal Deformity - BKA Psychiatric Medical History: Reports: Hx Dementia, Hx Depression Denies: Hx Attention Deficit Hyperactivity Disorder, Hx Bipolar Disorder, Hx Schizophrenia Past Surgical History: Reports: Hx Abdominal Surgery, Hx Cardiac Surgery - defibrillator, Hx Internal Defibrillator, Hx Orthopedic Surgery - left BKA, Hx Vascular Surgery - left groin, Other - PEG tube. Denies: Hx Open Heart Surgery - Immunizations Hx Diphtheria, Pertussis, Tetanus Vaccination: No Physical Exam - Vital signs Vitals: Resp Pulse Ox 16 100 09/18/17 15:02 09/18/17 15:02 Course - Re-evaluation Re-evalutation: 09/18/17 15:47 76-year-old male presents with inability to receive antibiotics or lab levels at his facility in the setting of being treated for resistant UTI. Physiologically he does not look septic, neurologically he is at his baseline. I spoke with Dr. Rosales's nurse who states that the facility could not get a gentamicin trough and thus could not administer intramuscular gentamicin. At this point I think that the wisest thing for the patient will be to admit him for IV antibiotics given the inability to do this at home. We will paged hospitalist for admission. Labs are pending. 09/18/17 15:[address] Horton who knows this patient well and thinks this is probably just colonization and he does not need admission. He is not septic and he looks good. At this time I think that he can be discharged and Dr. Rosales can figure out his outpatient IV access if antibiotics are needed on a continue basis. He currently has no evidence of urinary hemorrhage and looks well. 09/18/17 18:24 Patient's labs returned and he has extreme hypernatremia. Will be admitted. Discussed with hospitalist. - Vital Signs Vital signs: Temp Pulse Resp BP Pulse Ox 99.6 F 18 148/83 H 99 09/18/17 15:20 09/18/17 17:23 09/18/17 16:03 09/18/17 17:23 - Laboratory Result Diagrams: 09/18/17 15:20 09/18/17 16:34 Laboratory results interpreted by me: 09/18/17 09/18/17 09/18/17 15:20 16:34 17:27 Hgb 12.1 L MCH 25.9 L MCHC 30.9 L RDW 20.6 H Plt Count 97 L Seg Neutrophils % 82.3 H Lymphocytes % 11.2 L Sodium 177.7 H* Chloride 136 H BUN 74 H Est GFR (Non-Af Amer) 57 L Glucose 221 H Urine Protein 100 H Urine Glucose (UA) 150 H Urine Blood LARGE H Ur Leukocyte Esterase LARGE H Urine Ascorbic Acid 40 H Discharge - Discharge Clinical Impression: COLONIZATION URINARY TRACT, Acute hypernatremia Condition: Fair Disposition: ADMITTED INPATIENT Admitting Provider: Hospitalist Unit Admitted: IMCU Additional Instructions: Please call Dr. Rosales regarding ongoing antibiotic therapy for this patient. It is the opinion of our admitting physicians who know this patient that he is not actually infected but rather colonized. He did not meet criteria for admission to hospital today.
[2017-09-18] MEDS ORDERED: NORMAL SALINE 1000 ML 1,000 ML IV ONE (15:31)
[2017-09-18 15:39] LABS: ABSOLUTE EOSINOPHILS # (AUTO) 0.2 10^3/uL (0.0-0.6); ABSOLUTE MONOCYTES (AUTO) 0.3 10^3/uL (0.1-1.4); ABSOLUTE NEUT (AUTO) 7.1 10^3/uL (1.7-8.2); BASOPHILS % (AUTO) 0.2 % (0-2); EOSINOPHILS % (AUTO) 2.5 % (0-6); HEMATOCRIT 39.1 % (37.9-51.0); HEMOGLOBIN 12.1 g/dL (13.5-17.0); LYMPHOCYTES % (AUTO) 11.2 % (13-45); MEAN CORPUSCULAR HEMOGLOBIN 25.9 pg (27.0-33.4); MEAN CORPUSCULAR HGB CONC 30.9 g/dL (32.0-36.0); MEAN CORPUSCULAR VOLUME 84 fl (80-97); MONOCYTES % (AUTO) 3.8 % (3-13); RED BLOOD COUNT 4.68 10^6/uL (4.35-5.55); RED CELL DISTRIBUTION WIDTH 20.6 % (11.5-14.0); SEGMENTED NEUTROPHILS % (AUTO) 82.3 % (42-78); TOTAL CELLS COUNTED % (AUTO) 100 %; WHITE BLOOD COUNT 8.7 10^3/uL (4.0-10.5)
[2017-09-18 15:40] LABS: PLATELET COUNT 97 10^3/uL (150-450)
[2017-09-18 17:32] LABS: ANION GAP 13 (5-19); BLOOD UREA NITROGEN 74 mg/dL (7-20); CARBON DIOXIDE 29 mmol/L (22-30); CHLORIDE 136 mmol/L (98-107); GLUCOSE 221 mg/dL (75-110); POTASSIUM 4.6 mmol/L (3.6-5.0)
[2017-09-18 17:38] LABS: SODIUM 177.7 mmol/L (137-145)
[2017-09-18 18:21] LABS: AMORPHOUS SEDIMENT,URINE TRACE /HPF; APPEARANCE,URINE CLOUDY; BILIRUBIN,URINE NEGATIVE (NEGATIVE); CALCIUM OXALATE CRYSTALS,URINE RARE /HPF; COLOR,URINE YELLOW; GLUCOSE, URINE 150 mg/dL (NEGATIVE); KETONES,URINE NEGATIVE (NEGATIVE); LEUKOCYTE ESTERASE,URINE LARGE (NEGATIVE); NITRITE,URINE NEGATIVE (NEGATIVE); PROTEIN,URINE 100 mg/dL (NEGATIVE); URINE SPECIFIC GRAVITY 1.015; UROBILINOGEN,URINE NEGATIVE mg/dL (<2.0)
[2017-09-18] MEDS ORDERED: DOCUSATE SODIUM 100 MG CAPSULE PO PRN (19:04)
[2017-09-18] MEDS ORDERED: ALBUTEROL SULFATE 0.083% NEB 2.5 MG/3 ML AMPUL NEB PRN (19:04)
[2017-09-18] MEDS ORDERED: PROMETHAZINE HCL INJ 25 MG/1 ML VIAL IV PRN (19:04)
[2017-09-18] MEDS ORDERED: ACETAMINOPHEN 325 MG TABLET PO PRN (19:04)
[2017-09-18] MEDS ORDERED: DEXTROSE 50%-WATER 25 GM/50 ML DISP.SYRIN IV PRN ×4 (19:55→20:55)
[2017-09-18] MEDS ORDERED: GLUCAGON,HUMAN RECOMB 1 MG INJ IM PRN (19:55)
[2017-09-18] MEDS ORDERED: DEXTROSE 40% GEL 15 GM TUBE PO PRN ×4 (19:55→20:55)
[2017-09-18] MEDS: DEXTROSE 5%-WATER 1000 ML 1,000 ML IV PRN (20:31)
--- NOTE | 2017-09-18 20:40 | PDOC H&P ---
History of Present Illness Admission Date/PCP: 09/18/17 18:34 Patient complains of: Altered mental status for unknown duration. History of Present Illness: SEUN TOTH is a 76 year old male with history of dementia of Alzheimer's type, CVA/dysphagia (post PEG tube placement), neurogenic bladder (post chronic indwelling Catalan catheter) and multiple UTI's was admitted with above-mentioned complaint. The patient is nonverbal so the history was obtained from the ED notes. On reviewing previous records, the patient had several visits to the ED for UTI and/or malfunctioning Catalan catheter. And the last time his Catalan catheter was changed was at Dr Blankenship's office on 08/05/2017. According to the ED note, the patient presented from [facility] with increased confusion. He has been diagnosed with UTI about a week prior and was treated with IV Gentamicin. However since he had poor IV access, he was sent to the hospital to finish his course of antibiotics. There was no report of any fever , chest pain, shortness of breath or any abdominal pain or diarrhea. In the ED, his temperature was not recorded, heart rate 103, respiratory rate 20 , blood pressure 148/83 with oxygen saturation of 99% on room air. His WBC was 8.7 and his sodium was 177.7. His BUN was 74 and creatinine of 1.24. His UA was positive. He received 1 g of vancomycin 1, 1 g meropenem 1 for presumed UTI and 1 L of normal saline. Past Medical History Medical History: Other - Based on previous records. Cardiac Medical History: Reports: Congestive Heart Failure, Coronary Artery Disease - stent x 1, Myocardial Infarction - 2004, Hyperlipidema, Hypertension, Peripheral Vascular Disease Pulmonary Medical History: Reports: Asthma - as child Denies: Bronchitis, Chronic Obstructive Pulmonary Disease (COPD), Pneumonia, Tuberculosis Neurological Medical History: Denies: Seizures Endocrine Medical History: Reports: Diabetes Mellitus Type 2 GI Medical History: Reports: Gastroesophageal Reflux Disease Denies: Hiatal Hernia Musculoskeltal Medical History: Reports: Arthritis Psychiatric Medical History: Reports: Dementia, Depression Denies: Attention Deficit Hyperactivity Disorder, Bipolar Disorder Hematology: Reports: Anemia Denies: Sickle Cell Disease Past Surgical History Past Surgical History: Reports: Internal Defibrillator, Orthopedic Surgery - left BKA, Vascular Surgery - left groin, Other - PEG tube Social History Smoking Status: Unknown if Ever Smoked Frequency of Alcohol Use: None Hx Recreational Drug Use: No Drugs: None Hx Prescription Drug Abuse: No - Advance Directive Resuscitation Status: Full Code Family History Family History: Other - Unobtainable since patient is nonverbal and has dementia. Parental Family History Reviewed: No Children Family History Reviewed: No Sibling(s) Family History Reviewed.: No - unable to obtain due to altered mental status. Medication/Allergy Allergies/Adverse Reactions: No Known Allergies Allergy (Verified 02/22/17 11:56) Review of Systems ROS unobtainable: Other - Unable to obtain an accurate review of system since the patient is nonverbal and has dementia. Physical Exam Vital Signs: Temp Pulse Resp BP Pulse Ox 99.6 F 24 H 148/83 H 100 09/18/17 15:20 09/18/17 18:03 09/18/17 16:03 09/18/17 18:03 General appearance: PRESENT: no acute distress, thin Head exam: PRESENT: atraumatic, normocephalic Eye exam: PRESENT: other - pupils reactive to light. Mouth exam: PRESENT: dry mucosa Neck exam: ABSENT: JVD Respiratory exam: PRESENT: decreased breath sounds. ABSENT: rales, rhonchi, wheezes Cardiovascular exam: PRESENT: RRR, +S1, +S2 Pulses: PRESENT: normal dorsalis pedis pul GI/Abdominal exam: PRESENT: normal bowel sounds, soft. ABSENT: distended, rebound, tenderness Rectal exam: PRESENT: deferred Gentrourinary exam: PRESENT: lacerations, other - .skin laceration on the side of penis with some bleeding Extremities exam: PRESENT: other - post left BKA.. ABSENT: pedal edema Neurological exam: PRESENT: awake Skin exam: PRESENT: dry, skin tears - penis, warm. ABSENT: rash Results Laboratory Results: CBC: WBC 8.7, hemoglobin 12.1, hematocrit 39.1, MCV 84, RDW 20.6, platelets 97. BMP: Sodium 177.7, potassium 4.6, chloride 136, bicarb 29, anion gap 13, BUN 74 , creatinine 1.24, glucose 221 and calcium 10.0. UA positive. Genta trough at 16:34 was 1.0. EKG Comments: none. Impressions: CT head pending. Assessment & Plan - Diagnosis (1) Acute encephalopathy Is this a current diagnosis for this admission?: Yes Plan: secondary to dementia and/or delirium due to metabolic (hypernatremia), hypovolemia and/or possible infection or due to medications. CAT scan head pending. Will also check TSH, B12 and folate and blood cultures. Further management as detailed below. (2) Acute hypernatremia Is this a current diagnosis for this admission?: Yes Plan: secondary to hypovolemia. Will start D5W and give free water through his PEG tube. Nutrition will be consulted regarding his PEG tube feeding. Will repeat BMP and monitor sodium level closely. (3) UTI (urinary tract infection) Qualifiers: Urinary tract infection type: site unspecified Hematuria presence: with hematuria Qualified Code(s): N39.0 - Urinary tract infection, site not specified; R31.9 - Hematuria, unspecified; R31.9 - Hematuria, unspecified Is this a current diagnosis for this admission?: Yes Plan: questionable in the setting of a chronic indwelling Catalan catheter. Unable to remove his Catalan catheter at this time since it was placed by urology in July 2017. According to the ED note, the patient has been started on gentamicin (not sure when he is supposed to finish the course). Urology probably needs to be consulted to replace his Catalan catheter and repeat UA/ urine culture prior to resuming any antibiotics. Of note, he received vancomycin and meropenem x1 in the ED. (4) Type 2 diabetes mellitus Qualifiers: Diabetes mellitus fdc insulin use: unspecified intermediate frame tender insulin use status Diabetes mellitus complication status: with unspecified complications Qualified Code(s): E11.8 - Type 2 diabetes mellitus with unspecified complications Is this a current diagnosis for this admission?: Yes Plan: We will start Humalog sliding scale awaiting further clarification of his medications' list by pharmacy. (5) COLETTE (acute kidney injury) Is this a current diagnosis for this admission?: Yes Plan: Most likely prerenal. He has a chronic indwelling Catalan catheter in place. will continue IV fluids and monitor urine output. Poor prognosis. The patient is high risk for re-hospitalization given recurrent UTI and hypovolemic state. Palliative care may need to be consulted to establish goals of care. - Time Time Spent: Greater than 70 Minutes Anticipated discharge: SNF - Inpatient Certification Based on my medical assessment, after consideration of the patient's comorbidities, presenting symptoms, or acuity I expect that the services needed warrant INPATIENT care.: Yes I certify that my determination is in accordance with my understanding of Medicare's requirements for reasonable and necessary INPATIENT services [42 CFR 412.3e].: Yes
[2017-09-18] MEDS ORDERED: GLUCAGON,HUMAN RECOMB 1 MG INJ SUBCUT PRN (20:55)
[2017-09-18] MEDS: HEPARIN SOD (PORCINE) 5,000 UNIT/ML 1 ML SYRINGE SUBCUT SCH (22:14)
[2017-09-18 23:49] LABS: BLOOD UREA NITROGEN 71 mg/dL (7-20); CALCIUM 9.4 mg/dL (8.4-10.2); CARBON DIOXIDE 28 mmol/L (22-30); CHLORIDE 127 mmol/L (98-107); GLUCOSE 327 mg/dL (75-110); POTASSIUM 4.5 mmol/L (3.6-5.0)
[2017-09-18 23:51] LABS: ANION GAP 15 (5-19)
[2017-09-19 00:37] LABS: SODIUM 170.1 mmol/L (137-145)
--- NOTE | 2017-09-19 01:27 | RADIOLOGY REPORT (SQ) ---
EXAM DESCRIPTION: CT HEAD WITHOUT CLINICAL HISTORY: altered mental status COMPARISON: 09/23/2016 TECHNIQUE: Axial CT of the head obtained from the skull apex to the skull base without contrast. FINDINGS: No acute intracranial hemorrhage identified. No mass, mass effect, shift of the midline, abnormal extra-axial fluid collection or CT evidence of acute ischemic change identified. The ventricular system and sulcal spaces are mildly enlarged compatible with mild cerebral atrophy. Scattered areas of hypodensity throughout the supratentorial white matter are nonspecific and may be related to chronic small vessel ischemic change. Region of encephalomalacia in the right posterior frontal lobe compatible with remote infarction. The visualized paranasal sinuses and the mastoids are clear. No skull fracture identified. Visualized orbits and globes are unremarkable. Atherosclerotic calcification of the intracranial internal carotid arteries. DLP: 1396.66 mGy-cm IMPRESSION: 1. No acute intracranial abnormality by CT criteria. This exam was performed according to our departmental dose-optimization program, which includes automated exposure control, adjustment of the mA and/or kV according to patient size and/or use of iterative reconstruction technique.
[2017-09-19 06:08] LABS: HEMATOCRIT 38.4 % (37.9-51.0); HEMOGLOBIN 12.1 g/dL (13.5-17.0); MEAN CORPUSCULAR HEMOGLOBIN 26.2 pg (27.0-33.4); MEAN CORPUSCULAR HGB CONC 31.6 g/dL (32.0-36.0); MEAN CORPUSCULAR VOLUME 83 fl (80-97); RED BLOOD COUNT 4.64 10^6/uL (4.35-5.55); RED CELL DISTRIBUTION WIDTH 20.6 % (11.5-14.0)
[2017-09-19 06:26] LABS: ALANINE AMINOTRANSFERASE 41 U/L (21-72); ALBUMIN 3.4 g/dL (3.5-5.0); ALKALINE PHOSPHATASE 109 U/L (38-126); ANION GAP 13 (5-19); ASPARTATE AMINO TRANSFERASE 25 U/L (17-59); BILIRUBIN,DIRECT 0.5 mg/dL (0.0-0.4); BILIRUBIN,TOTAL 0.5 mg/dL (0.2-1.3); BLOOD UREA NITROGEN 68 mg/dL (7-20); CALCIUM 9.6 mg/dL (8.4-10.2); CARBON DIOXIDE 27 mmol/L (22-30); CHLORIDE 135 mmol/L (98-107); GLUCOSE 298 mg/dL (75-110); PHOSPHORUS 4.1 mg/dL (2.5-4.5); POTASSIUM 4.1 mmol/L (3.6-5.0); TOTAL PROTEIN 8.6 g/dL (6.3-8.2)
[2017-09-19 06:34] LABS: SODIUM 174.7 mmol/L (137-145)
[2017-09-19 06:54] LABS: PLATELET COUNT 97 10^3/uL (150-450)
[2017-09-19] MEDS: HEPARIN SOD (PORCINE) 5,000 UNIT/ML 1 ML SYRINGE SUBCUT SCH ×3 (07:02→22:37)
[2017-09-19] MEDS: DEXTROSE 5%-WATER 1000 ML 1,000 ML IV PRN ×2 (08:43→22:56)
--- NOTE | 2017-09-19 16:09 | PDOC PROGRESS REPORT ---
Subjective Progress Note for:: 09/19/17 Subjective:: Nursing reported the patient's sodium was 174 on repeat. Patient was sleeping this morning. Reason For Visit: ALTERED MENTAL STATUS Physical Exam Vital Signs: Temp Pulse Resp BP Pulse Ox 98.3 F 11 L 141/82 H 100 09/19/17 07:59 09/19/17 09:01 09/19/17 09:00 09/19/17 09:01 Intake & Output 09/18/17 09/19/17 09/20/17 06:59 06:59 07:59 Output Total 800 Balance -800 Weight 96 kg General appearance: PRESENT: other - Sleeping Head exam: PRESENT: atraumatic, normocephalic Eye exam: PRESENT: other - Eyes closed Mouth exam: PRESENT: other - Mucosal membranes Neck exam: ABSENT: carotid bruit, JVD, lymphadenopathy, thyromegaly Respiratory exam: PRESENT: clear to auscultation joaquin. ABSENT: rales, rhonchi, wheezes Cardiovascular exam: PRESENT: RRR. ABSENT: diastolic murmur, rubs, systolic murmur Pulses: PRESENT: normal carotid pulses GI/Abdominal exam: PRESENT: normal bowel sounds, soft. ABSENT: distended, guarding, mass, organolmegaly, rebound, tenderness Rectal exam: PRESENT: deferred Extremities exam: ABSENT: calf tenderness, clubbing, pedal edema Neurological exam: PRESENT: other - Sleeping Skin exam: PRESENT: dry, intact, warm. ABSENT: cyanosis, rash Results Laboratory Results: 09/19/17 05:50 09/19/17 05:50 09/18/17 09/19/17 09/19/17 23:00 04:48 05:50 WBC Cancelled RBC Cancelled Hgb Cancelled Hct Cancelled MCV Cancelled MCH Cancelled MCHC Cancelled RDW Cancelled Plt Count Cancelled Sodium 170.1 H* 174.7 H* Potassium 4.5 4.1 Chloride 127 H 135 H Carbon Dioxide 28 27 Anion Gap 15 13 BUN 71 H 68 H Creatinine 1.18 1.31 H Est GFR ( Amer) > 60 > 60 Est GFR (Non-Af Amer) > 60 53 L Glucose 327 H 298 H Calcium 9.4 9.6 Phosphorus 4.1 Magnesium 2.7 H Total Bilirubin 0.5 AST 25 ALT 41 Alkaline Phosphatase 109 Total Protein 8.6 H Albumin 3.4 L Vitamin B12 920.0 09/19/17 05:50 WBC 7.0 RBC 4.64 Hgb 12.1 L Hct 38.4 MCV 83 MCH 26.2 L MCHC 31.6 L RDW 20.6 H Plt Count 97 L Sodium Potassium Chloride Carbon Dioxide Anion Gap BUN Creatinine Est GFR ( Amer) Est GFR (Non-Af Amer) Glucose Calcium Phosphorus Magnesium Total Bilirubin AST ALT Alkaline Phosphatase Total Protein Albumin Vitamin B12 Impressions: Head CT 09/19/17 00:00 IMPRESSION: 1. No acute intracranial abnormality by CT criteria. This exam was performed according to our departmental dose-optimization program, which includes automated exposure control, adjustment of the mA and/or kV according to patient size and/or use of iterative reconstruction technique. Assessment & Plan - Diagnosis (1) Acute encephalopathy Is this a current diagnosis for this admission?: Yes Plan: Secondary to hypernatremia: We will continue D5W (2) Acute hypernatremia Is this a current diagnosis for this admission?: Yes Plan: Secondary to dehydration: We will continue IV fluids. Sodiums are every 6 hours. The patient corrects more than 10 will adjust IV fluids. (3) Obstructive uropathy Is this a current diagnosis for this admission?: Yes Plan: Will keep Catalan in place (4) Type 2 diabetes mellitus Qualifiers: Diabetes mellitus nursing home insulin use: unspecified nursing home insulin use status Diabetes mellitus complication status: with unspecified complications Qualified Code(s): E11.8 - Type 2 diabetes mellitus with unspecified complications Is this a current diagnosis for this admission?: Yes Plan: sliding insulin (5) UTI (urinary tract infection) Qualifiers: Urinary tract infection type: site unspecified Hematuria presence: with hematuria Qualified Code(s): N39.0 - Urinary tract infection, site not specified; R31.9 - Hematuria, unspecified; R31.9 - Hematuria, unspecified Is this a current diagnosis for this admission?: Yes Plan: Ruled out: Does not have a urinary tract infection patient is colonized with Pseudomonas and enterococcus faecalis. If there is a concern for UTI patient needs to demonstrate other clinical findings to help support that diagnosis. At current time patient is afebrile and a normal white blood cell count. Patient does have acute metabolic encephalopathy secondary to hyper natremia. - Time Time Spent with patient: 15-24 minutes
[2017-09-19 18:39] LABS: ANION GAP 11 (5-19); BLOOD UREA NITROGEN 62 mg/dL (7-20); CALCIUM 9.5 mg/dL (8.4-10.2); CARBON DIOXIDE 30 mmol/L (22-30); CHLORIDE 131 mmol/L (98-107); GLUCOSE 360 mg/dL (75-110); POTASSIUM 3.9 mmol/L (3.6-5.0)
[2017-09-19 18:44] LABS: SODIUM 171.9 mmol/L (137-145)
[2017-09-19] MEDS: INSULIN LISPRO 100 UNIT/ML 3 ML VIAL SUBCUT PRN (18:48)
[2017-09-20] MEDS: INSULIN LISPRO 100 UNIT/ML 3 ML VIAL SUBCUT PRN ×4 (00:21→16:28)
[2017-09-20] MEDS: HEPARIN SOD (PORCINE) 5,000 UNIT/ML 1 ML SYRINGE SUBCUT SCH ×3 (05:05→21:32)
[2017-09-20 15:53] LABS: ANION GAP 9 (5-19); BLOOD UREA NITROGEN 51 mg/dL (7-20); CALCIUM 9.3 mg/dL (8.4-10.2); CARBON DIOXIDE 29 mmol/L (22-30); CHLORIDE 124 mmol/L (98-107); GLUCOSE 212 mg/dL (75-110); POTASSIUM 3.6 mmol/L (3.6-5.0); SODIUM 161.8 mmol/L (137-145)
--- NOTE | 2017-09-20 17:30 | PDOC PROGRESS REPORT ---
Subjective Progress Note for:: 09/20/17 Subjective:: Nursing states that is difficult to get IV access on patient. Reason For Visit: ALTERED MENTAL STATUS Physical Exam Vital Signs: Temp Pulse Resp BP Pulse Ox 98.2 F 84 18 132/71 H 93 09/20/17 04:53 09/20/17 13:35 09/20/17 13:35 09/20/17 04:53 09/20/17 04:53 Intake & Output 09/19/17 09/20/17 09/21/17 05:59 06:59 06:59 Intake Total Output Total Balance Weight General appearance: PRESENT: well-developed, well-nourished Head exam: PRESENT: atraumatic, normocephalic Eye exam: PRESENT: conjunctiva pink, EOMI. ABSENT: scleral icterus Ear exam: PRESENT: normal external ear exam Mouth exam: PRESENT: moist, tongue midline Neck exam: ABSENT: carotid bruit, JVD, lymphadenopathy, thyromegaly Respiratory exam: PRESENT: clear to auscultation joaquin. ABSENT: rales, rhonchi, wheezes Cardiovascular exam: PRESENT: RRR. ABSENT: diastolic murmur, rubs, systolic murmur Pulses: PRESENT: normal dorsalis pedis pul Vascular exam: PRESENT: normal capillary refill GI/Abdominal exam: PRESENT: normal bowel sounds, soft. ABSENT: distended, guarding, mass, organolmegaly, rebound, tenderness Rectal exam: PRESENT: deferred Extremities exam: PRESENT: other - Left leg below the knee amputation Neurological exam: PRESENT: other - sleeping Psychiatric exam: PRESENT: other - Sleeping Skin exam: PRESENT: dry, intact, warm. ABSENT: cyanosis, rash Results Laboratory Results: 09/19/17 05:50 09/20/17 15:10 09/19/17 09/20/17 09/20/17 18:11 13:35 15:10 Sodium 171.9 H* Cancelled 161.8 H Potassium 3.9 Cancelled 3.6 Chloride 131 H Cancelled 124 H Carbon Dioxide 30 Cancelled 29 Anion Gap 11 Cancelled 9 BUN 62 H Cancelled 51 H Creatinine 1.34 H Cancelled 1.16 Est GFR ( Amer) > 60 Cancelled > 60 Est GFR (Non-Af Amer) 52 L Cancelled > 60 Glucose 360 H Cancelled 212 H Calcium 9.5 Cancelled 9.3 Impressions: Head CT 09/19/17 00:00 IMPRESSION: 1. No acute intracranial abnormality by CT criteria. This exam was performed according to our departmental dose-optimization program, which includes automated exposure control, adjustment of the mA and/or kV according to patient size and/or use of iterative reconstruction technique. Assessment & Plan - Diagnosis (1) Acute encephalopathy Is this a current diagnosis for this admission?: Yes Plan: Secondary to hypernatremia: We will continue D5W. Requested to pt to have Triple Lumen placed by Surgery (2) Acute hypernatremia Is this a current diagnosis for this admission?: Yes Plan: Secondary to dehydration: We will continue IV fluids. Sodiums are every 6 hours. The patient corrects more than 10 will adjust IV fluids. (3) Obstructive uropathy Is this a current diagnosis for this admission?: Yes Plan: Will keep Catalan in place (4) Type 2 diabetes mellitus Qualifiers: Diabetes mellitus [facility] insulin use: unspecified [facility] insulin use status Diabetes mellitus complication status: with unspecified complications Qualified Code(s): E11.8 - Type 2 diabetes mellitus with unspecified complications Is this a current diagnosis for this admission?: Yes Plan: sliding insulin (5) UTI (urinary tract infection) Qualifiers: Urinary tract infection type: site unspecified Hematuria presence: with hematuria Qualified Code(s): N39.0 - Urinary tract infection, site not specified; R31.9 - Hematuria, unspecified; R31.9 - Hematuria, unspecified Is this a current diagnosis for this admission?: Yes Plan: Ruled out: Does not have a urinary tract infection patient is colonized with Pseudomonas and enterococcus faecalis. If there is a concern for UTI patient needs to demonstrate other clinical findings to help support that diagnosis. At current time patient is afebrile and a normal white blood cell count. Patient does have acute metabolic encephalopathy secondary to hyper natremia. - Time Time Spent with patient: 15-24 minutes
[2017-09-20 18:19] LABS: ANION GAP 8 (5-19); BLOOD UREA NITROGEN 49 mg/dL (7-20); CARBON DIOXIDE 26 mmol/L (22-30); CHLORIDE 127 mmol/L (98-107); GLUCOSE 231 mg/dL (75-110); POTASSIUM 3.8 mmol/L (3.6-5.0); SODIUM 160.7 mmol/L (137-145)
--- NOTE | 2017-09-20 19:07 | Operative Report ---
Operative Report DATE OF SURGERY: 09/20/17 PREOPERATIVE DIAGNOSIS: Hypernatremia POSTOPERATIVE DIAGNOSIS: Same OPERATION: 1. Focused ultrasound of the left neck. 2. Ultrasound directed insertion of triple-lumen central venous access catheter left internal jugular vein. SURGEON: PARAG KENDRICK ANESTHESIA: Local TISSUE REMOVED OR ALTERED: None COMPLICATIONS: None ESTIMATED BLOOD LOSS: Scant INTRAOPERATIVE FINDINGS: See below PROCEDURE: Informed consent was obtained. The patient was placed in Trendelenburg the left neck and chest wall were exposed, and prepped and draped in a sterile fashion. Surgical plan and surgical timeout discussed. Of note the patient has a left subclavian pacer defibrillator The left neck was anesthetized with 1% lidocaine without epinephrine. Using the variable frequency linear transducer, real time, a 18-gauge needle and wire were threaded into the left internal jugular vein. The tract was dilated up, the dilator removed, and the triple-lumen central venous access catheter was threaded into the left internal jugular vein uneventfully to the hub. There was excellent aspiration and flush of saline through all 3 lumens. The catheter was affixed to the skin with a Biopatch and 2-0 silk suture; sterile dressing applied. The patient tolerated the procedure well. The patient did require restraints during the procedure. There were no complications. Portable upright chest x- ray pending at time of dictation.
--- NOTE | 2017-09-20 19:39 | RADIOLOGY REPORT (SQ) ---
EXAM DESCRIPTION: CHEST SINGLE VIEW COMPLETED DATE/TIME: 09/20/2017 7:28 pm REASON FOR STUDY: s/p CVP left IJ COMPARISON: 07/17/2017. NUMBER OF VIEWS: One view. TECHNIQUE: Single frontal radiographic view of the chest acquired. LIMITATIONS: None. FINDINGS: LUNGS AND PLEURA: Suspicious for small left apical pneumothorax. MEDIASTINUM AND HILAR STRUCTURES: Stable contours. HEART AND VASCULAR STRUCTURES: Stable heart, mildly enlarged without gross failure. BONES: No acute findings. HARDWARE: Left IJ line crosses the midline and probably extends out into the right subclavian vein. This does not take the normal turned down into the IVC. OTHER: No other significant finding. IMPRESSION: 1. Status post left IJ line placement with small suspected left pneumothorax. The left IJ line crosses into the right subclavian vein rather than into the IVC. TECHNICAL DOCUMENTATION: JOB ID: [id number] [employer]- All Rights Reserved Reading location - IP/workstation name: [email or web address]
[2017-09-21] MEDS: INSULIN LISPRO 100 UNIT/ML 3 ML VIAL SUBCUT PRN ×2 (00:36→17:37)
[2017-09-21 01:44] LABS: ANION GAP 7 (5-19); BLOOD UREA NITROGEN 35 mg/dL (7-20); CALCIUM 7.6 mg/dL (8.4-10.2); CARBON DIOXIDE 24 mmol/L (22-30); CHLORIDE 127 mmol/L (98-107); GLUCOSE 209 mg/dL (75-110); SODIUM 157.6 mmol/L (137-145)
[2017-09-21] MEDS: POTASSIUM CHLORIDE 20 MEQ/50 ML RTU IV SCH ×2 (02:24→04:34)
[2017-09-21] MEDS: HEPARIN SOD (PORCINE) 5,000 UNIT/ML 1 ML SYRINGE SUBCUT SCH ×3 (05:03→21:13)
[2017-09-21] MEDS: DEXTROSE 5%-WATER 1000 ML 1,000 ML IV PRN ×2 (05:56→17:32)
[2017-09-21] MEDS ORDERED: POTASSI CL 20 MEQ/50 ML RIDER 20 MEQ/50 ML RTUPB IV SCH (06:38)
[2017-09-21 07:58] LABS: ANION GAP 8 (5-19); BLOOD UREA NITROGEN 39 mg/dL (7-20); CALCIUM 8.9 mg/dL (8.4-10.2); CARBON DIOXIDE 27 mmol/L (22-30); CHLORIDE 124 mmol/L (98-107); GLUCOSE 146 mg/dL (75-110); SODIUM 158.7 mmol/L (137-145)
[2017-09-21 08:09] LABS: POTASSIUM 3.9 mmol/L (3.6-5.0)
[2017-09-21] MEDS: NORMAL SALINE INJ/PF 0.9% 10 ML SDV IV PRN (14:45)
[2017-09-21 16:59] LABS: ANION GAP 8 (5-19); BLOOD UREA NITROGEN 35 mg/dL (7-20); CARBON DIOXIDE 25 mmol/L (22-30); CHLORIDE 123 mmol/L (98-107); GLUCOSE 223 mg/dL (75-110); POTASSIUM 3.8 mmol/L (3.6-5.0); SODIUM 155.5 mmol/L (137-145)
--- NOTE | 2017-09-21 17:37 | PDOC PROGRESS REPORT ---
Subjective Progress Note for:: 09/21/17 Subjective:: No new issues Reason For Visit: ALTERED MENTAL STATUS Physical Exam Vital Signs: Temp Pulse Resp BP Pulse Ox 99.1 F 91 16 105/72 93 09/21/17 15:27 09/21/17 15:27 09/21/17 15:27 09/21/17 15:27 09/21/17 15:27 Intake & Output 09/20/17 09/21/17 09/22/17 06:59 06:59 06:59 Intake Total 4656 Output Total 1125 Balance 3531 Weight 94.2 kg General appearance: PRESENT: no acute distress, well-nourished, other - Dry mucosal membranes. Head exam: PRESENT: atraumatic, normocephalic Eye exam: PRESENT: conjunctiva pink, EOMI. ABSENT: scleral icterus Ear exam: PRESENT: normal external ear exam Mouth exam: PRESENT: moist, tongue midline Neck exam: ABSENT: carotid bruit, JVD, lymphadenopathy, thyromegaly Respiratory exam: PRESENT: clear to auscultation joaquin. ABSENT: rales, rhonchi, wheezes Cardiovascular exam: PRESENT: RRR. ABSENT: diastolic murmur, rubs, systolic murmur Pulses: PRESENT: normal dorsalis pedis pul Vascular exam: PRESENT: normal capillary refill GI/Abdominal exam: PRESENT: normal bowel sounds, soft. ABSENT: distended, guarding, mass, organolmegaly, rebound, tenderness Rectal exam: PRESENT: deferred Extremities exam: ABSENT: calf tenderness, clubbing, pedal edema Neurological exam: PRESENT: alert, awake, oriented to person Skin exam: PRESENT: dry, intact, warm. ABSENT: cyanosis, rash Results Laboratory Results: 09/19/17 05:50 09/21/17 16:18 09/20/17 09/21/17 09/21/17 17:55 00:00 06:49 Sodium 160.7 H 157.6 H 158.7 H Potassium 3.8 3.0 L* 3.9 Chloride 127 H 127 H 124 H Carbon Dioxide 26 24 27 Anion Gap 8 7 8 BUN 49 H 35 H 39 H Creatinine 1.14 0.98 1.06 Est GFR ( Amer) > 60 > 60 > 60 Est GFR (Non-Af Amer) > 60 > 60 > 60 Glucose 231 H 209 H 146 H Calcium 9.0 7.6 L 8.9 09/21/17 09/21/17 09/21/17 14:45 14:45 16:18 Sodium Cancelled Cancelled 155.5 H Potassium Cancelled Cancelled 3.8 Chloride Cancelled Cancelled 123 H Carbon Dioxide Cancelled Cancelled 25 Anion Gap Cancelled Cancelled 8 BUN Cancelled Cancelled 35 H Creatinine Cancelled Cancelled 1.05 Est GFR ( Amer) Cancelled Cancelled > 60 Est GFR (Non-Af Amer) Cancelled Cancelled > 60 Glucose Cancelled Cancelled 223 H Calcium Cancelled Cancelled 9.0 Impressions: Head CT 09/19/17 00:00 IMPRESSION: 1. No acute intracranial abnormality by CT criteria. This exam was performed according to our departmental dose-optimization program, which includes automated exposure control, adjustment of the mA and/or kV according to patient size and/or use of iterative reconstruction technique. Chest X-Ray 09/20/17 19:04 IMPRESSION: 1. Status post left IJ line placement with small suspected left pneumothorax. The left IJ line crosses into the right subclavian vein rather than into the IVC. Assessment & Plan - Diagnosis (1) Acute encephalopathy Is this a current diagnosis for this admission?: Yes Plan: Secondary to hypernatremia: Sodiums correcting well. Will continue to check Sodium. (2) Acute hypernatremia Is this a current diagnosis for this admission?: Yes Plan: Secondary to dehydration: We will continue IV fluids. Sodiums are every 6 hours. Resolving. (3) Obstructive uropathy Is this a current diagnosis for this admission?: Yes Plan: Will keep Catalan in place (4) Type 2 diabetes mellitus Qualifiers: Diabetes mellitus senior care insulin use: unspecified senior care insulin use status Diabetes mellitus complication status: with unspecified complications Qualified Code(s): E11.8 - Type 2 diabetes mellitus with unspecified complications Is this a current diagnosis for this admission?: Yes Plan: sliding insulin (5) UTI (urinary tract infection) Qualifiers: Urinary tract infection type: site unspecified Hematuria presence: with hematuria Qualified Code(s): N39.0 - Urinary tract infection, site not specified; R31.9 - Hematuria, unspecified; R31.9 - Hematuria, unspecified Is this a current diagnosis for this admission?: Yes Plan: Ruled out: Does not have a urinary tract infection patient is colonized with Pseudomonas and enterococcus faecalis. If there is a concern for UTI patient needs to demonstrate other clinical findings to help support that diagnosis. At current time patient is afebrile and a normal white blood cell count. Patient does have acute metabolic encephalopathy secondary to hyper natremia. - Time Time Spent with patient: 15-24 minutes
[2017-09-22 00:43] LABS: ANION GAP 8 (5-19); BLOOD UREA NITROGEN 30 mg/dL (7-20); CALCIUM 8.9 mg/dL (8.4-10.2); CARBON DIOXIDE 26 mmol/L (22-30); CHLORIDE 120 mmol/L (98-107); GLUCOSE 198 mg/dL (75-110); POTASSIUM 3.7 mmol/L (3.6-5.0)
[2017-09-22] MEDS: DEXTROSE 5%-WATER 1000 ML 1,000 ML IV PRN ×3 (03:40→22:53)
[2017-09-22] MEDS: HEPARIN SOD (PORCINE) 5,000 UNIT/ML 1 ML SYRINGE SUBCUT SCH ×3 (05:20→21:48)
[2017-09-22 06:15] LABS: ANION GAP 7 (5-19); BLOOD UREA NITROGEN 29 mg/dL (7-20); CALCIUM 8.6 mg/dL (8.4-10.2); CARBON DIOXIDE 25 mmol/L (22-30); CHLORIDE 122 mmol/L (98-107); GLUCOSE 222 mg/dL (75-110); POTASSIUM 3.5 mmol/L (3.6-5.0); SODIUM 153.5 mmol/L (137-145)
[2017-09-22] MEDS: INSULIN LISPRO 100 UNIT/ML 3 ML VIAL SUBCUT PRN ×3 (06:53→18:35)
[2017-09-22 12:50] LABS: ANION GAP 5 (5-19); BLOOD UREA NITROGEN 25 mg/dL (7-20); CALCIUM 8.7 mg/dL (8.4-10.2); CARBON DIOXIDE 25 mmol/L (22-30); CHLORIDE 121 mmol/L (98-107); GLUCOSE 197 mg/dL (75-110); POTASSIUM 3.4 mmol/L (3.6-5.0); SODIUM 151.4 mmol/L (137-145)
--- NOTE | 2017-09-22 15:44 | PDOC PROGRESS REPORT ---
Subjective Progress Note for:: 09/22/17 Subjective:: No new issues. Reason For Visit: ALTERED MENTAL STATUS Physical Exam Vital Signs: Temp Pulse Resp BP Pulse Ox 98.7 F 84 14 112/70 93 09/22/17 11:10 09/22/17 14:00 09/22/17 11:10 09/22/17 11:10 09/22/17 11:10 Intake & Output 09/21/17 09/22/17 09/23/17 06:59 06:59 06:59 Intake Total 4656 1060 Output Total 1125 1100 Balance 3531 -40 Weight 94.2 kg 94.3 kg General appearance: PRESENT: no acute distress, well-developed, well-nourished Head exam: PRESENT: atraumatic, normocephalic Eye exam: PRESENT: conjunctiva pink, EOMI. ABSENT: scleral icterus Ear exam: PRESENT: normal external ear exam Mouth exam: PRESENT: moist, tongue midline Neck exam: ABSENT: carotid bruit, JVD, lymphadenopathy, thyromegaly Respiratory exam: PRESENT: clear to auscultation joaquin. ABSENT: rales, rhonchi, wheezes Cardiovascular exam: PRESENT: RRR. ABSENT: diastolic murmur, rubs, systolic murmur Pulses: PRESENT: normal dorsalis pedis pul Vascular exam: PRESENT: normal capillary refill GI/Abdominal exam: PRESENT: normal bowel sounds, soft. ABSENT: distended, guarding, mass, organolmegaly, rebound, tenderness Rectal exam: PRESENT: deferred Extremities exam: ABSENT: calf tenderness, clubbing, pedal edema Neurological exam: PRESENT: alert, awake, oriented to person. ABSENT: motor sensory deficit Psychiatric exam: PRESENT: appropriate affect, normal mood. ABSENT: homicidal ideation, suicidal ideation Skin exam: PRESENT: dry, intact, warm. ABSENT: cyanosis, rash Results Laboratory Results: 09/19/17 05:50 09/22/17 12:09 09/21/17 09/21/17 09/21/17 14:45 14:45 16:18 Sodium Cancelled Cancelled 155.5 H Potassium Cancelled Cancelled 3.8 Chloride Cancelled Cancelled 123 H Carbon Dioxide Cancelled Cancelled 25 Anion Gap Cancelled Cancelled 8 BUN Cancelled Cancelled 35 H Creatinine Cancelled Cancelled 1.05 Est GFR ( Amer) Cancelled Cancelled > 60 Est GFR (Non-Af Amer) Cancelled Cancelled > 60 Glucose Cancelled Cancelled 223 H Calcium Cancelled Cancelled 9.0 09/22/17 09/22/17 09/22/17 00:03 05:32 12:09 Sodium 154.0 H 153.5 H 151.4 H Potassium 3.7 3.5 L 3.4 L Chloride 120 H 122 H 121 H Carbon Dioxide 26 25 25 Anion Gap 8 7 5 BUN 30 H 29 H 25 H Creatinine 0.99 0.96 1.02 Est GFR ( Amer) > 60 > 60 > 60 Est GFR (Non-Af Amer) > 60 > 60 > 60 Glucose 198 H 222 H 197 H Calcium 8.9 8.6 8.7 Impressions: Head CT 09/19/17 00:00 IMPRESSION: 1. No acute intracranial abnormality by CT criteria. This exam was performed according to our departmental dose-optimization program, which includes automated exposure control, adjustment of the mA and/or kV according to patient size and/or use of iterative reconstruction technique. Chest X-Ray 09/20/17 19:04 IMPRESSION: 1. Status post left IJ line placement with small suspected left pneumothorax. The left IJ line crosses into the right subclavian vein rather than into the IVC. Assessment & Plan - Diagnosis (1) Acute encephalopathy Is this a current diagnosis for this admission?: Yes Plan: Secondary to hypernatremia: Sodiums correcting well. Will continue to check Sodium. (2) Acute hypernatremia Is this a current diagnosis for this admission?: Yes Plan: Secondary to dehydration: We will continue IV fluids. Sodiums are every 6 hours. Resolving. 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 Diabetes mellitus complication status: with unspecified complications Qualified Code(s): E11.8 - Type 2 diabetes mellitus with unspecified complications Is this a current diagnosis for this admission?: Yes Plan: sliding insulin (5) UTI (urinary tract infection) Qualifiers: Urinary tract infection type: site unspecified Hematuria presence: with hematuria Qualified Code(s): N39.0 - Urinary tract infection, site not specified; R31.9 - Hematuria, unspecified; R31.9 - Hematuria, unspecified Is this a current diagnosis for this admission?: Yes Plan: Ruled out: Does not have a urinary tract infection patient is colonized with Pseudomonas and enterococcus faecalis. If there is a concern for UTI patient needs to demonstrate other clinical findings to help support that diagnosis. At current time patient is afebrile and a normal white blood cell count. Patient does have acute metabolic encephalopathy secondary to hypernatremia. (6) Nutrition disorder Is this a current diagnosis for this admission?: Yes Plan: Will consult Nutritions for recommendations. - Time Time Spent with patient: 15-24 minutes
[2017-09-22] MEDS: POTASSI CL 20 MEQ/50 ML RIDER 20 MEQ/50 ML RTUPB IV SCH ×2 (16:16→18:36)
[2017-09-22 19:56] LABS: ANION GAP 5 (5-19); BLOOD UREA NITROGEN 22 mg/dL (7-20); CALCIUM 8.7 mg/dL (8.4-10.2); CARBON DIOXIDE 25 mmol/L (22-30); CHLORIDE 118 mmol/L (98-107); GLUCOSE 210 mg/dL (75-110); POTASSIUM 3.5 mmol/L (3.6-5.0); SODIUM 148.1 mmol/L (137-145)
[2017-09-23] MEDS: INSULIN LISPRO 100 UNIT/ML 3 ML VIAL SUBCUT PRN ×3 (00:24→13:48)
[2017-09-23 01:07] LABS: ANION GAP 6 (5-19); BLOOD UREA NITROGEN 21 mg/dL (7-20); CALCIUM 8.7 mg/dL (8.4-10.2); CARBON DIOXIDE 25 mmol/L (22-30); CHLORIDE 118 mmol/L (98-107); GLUCOSE 204 mg/dL (75-110); POTASSIUM 3.7 mmol/L (3.6-5.0); SODIUM 148.7 mmol/L (137-145)
[2017-09-23] MEDS: HEPARIN SOD (PORCINE) 5,000 UNIT/ML 1 ML SYRINGE SUBCUT SCH ×3 (05:52→22:24)
[2017-09-23 07:19] LABS: ANION GAP 8 (5-19); BLOOD UREA NITROGEN 19 mg/dL (7-20); CALCIUM 8.7 mg/dL (8.4-10.2); CARBON DIOXIDE 25 mmol/L (22-30); CHLORIDE 113 mmol/L (98-107); GLUCOSE 232 mg/dL (75-110); SODIUM 146.3 mmol/L (137-145)
[2017-09-23] MEDS: DEXTROSE 5%-WATER 1000 ML 1,000 ML IV PRN (09:17)
[2017-09-23 13:16] LABS: HEMATOCRIT 27.8 % (37.9-51.0); MEAN CORPUSCULAR HEMOGLOBIN 25.8 pg (27.0-33.4); MEAN CORPUSCULAR HGB CONC 32.3 g/dL (32.0-36.0); MEAN CORPUSCULAR VOLUME 80 fl (80-97); RED BLOOD COUNT 3.48 10^6/uL (4.35-5.55); RED CELL DISTRIBUTION WIDTH 19.4 % (11.5-14.0); WHITE BLOOD COUNT 6.5 10^3/uL (4.0-10.5)
[2017-09-23 13:40] LABS: ANION GAP 8 (5-19); BLOOD UREA NITROGEN 19 mg/dL (7-20); CALCIUM 8.9 mg/dL (8.4-10.2); CARBON DIOXIDE 25 mmol/L (22-30); CHLORIDE 112 mmol/L (98-107); GLUCOSE 201 mg/dL (75-110); POTASSIUM 3.9 mmol/L (3.6-5.0); SODIUM 145.4 mmol/L (137-145)
[2017-09-23 13:50] LABS: PLATELET COUNT 89 10^3/uL (150-450)
--- NOTE | 2017-09-23 14:46 | PDOC PROGRESS REPORT ---
Subjective Progress Note for:: 09/23/17 Subjective:: The patient is resting in his bed. He was sleeping but arousable. He was unable to speak to me. There were no family members at the bedside and review of systems could not be obtained. Reason For Visit: ALTERED MENTAL STATUS Physical Exam Vital Signs: Temp Pulse Resp BP Pulse Ox 97.6 F 74 18 102/59 L 92 09/23/17 11:00 09/23/17 13:54 09/23/17 11:00 09/23/17 11:00 09/23/17 11:00 Intake & Output 09/22/17 09/23/17 09/24/17 06:59 06:59 06:59 Intake Total 1060 2719 734 Output Total 1100 1100 Balance -40 1619 734 Weight 94.3 kg General appearance: PRESENT: other - Chronically ill-appearing but in no acute distress. He is nonverbal Head exam: PRESENT: atraumatic, other - He has bitemporal wasting Eye exam: PRESENT: conjunctiva pink, EOMI, PERRLA. ABSENT: scleral icterus Mouth exam: PRESENT: moist, tongue midline, other - He is drooling Respiratory exam: PRESENT: clear to auscultation joaquin, other - Poor effort. He would not cooperate for an exam. ABSENT: rales, rhonchi, wheezes Cardiovascular exam: PRESENT: RRR. ABSENT: diastolic murmur, rubs, systolic murmur GI/Abdominal exam: PRESENT: normal bowel sounds, soft. ABSENT: distended, guarding, mass, organolmegaly, rebound, tenderness Rectal exam: PRESENT: deferred Musculoskeletal exam: ABSENT: ambulatory Neurological exam: PRESENT: other - Sleeping but arousable. Psychiatric exam: PRESENT: appropriate affect, normal mood. ABSENT: homicidal ideation, suicidal ideation Skin exam: PRESENT: dry, intact, warm. ABSENT: cyanosis, rash Results Laboratory Results: 09/23/17 12:45 09/23/17 12:45 09/22/17 09/23/17 09/23/17 18:55 00:20 05:50 WBC RBC Hgb Hct MCV MCH MCHC RDW Plt Count Sodium 148.1 H 148.7 H 146.3 H Potassium 3.5 L 3.7 4.0 Chloride 118 H 118 H 113 H Carbon Dioxide 25 25 25 Anion Gap 5 6 8 BUN 22 H 21 H 19 Creatinine 0.98 0.95 0.93 Est GFR ( Amer) > 60 > 60 > 60 Est GFR (Non-Af Amer) > 60 > 60 > 60 Glucose 210 H 204 H 232 H Calcium 8.7 8.7 8.7 09/23/17 09/23/17 12:45 12:45 WBC 6.5 RBC 3.48 L Hgb 9.0 L Hct 27.8 L MCV 80 MCH 25.8 L MCHC 32.3 RDW 19.4 H Plt Count 89 L Sodium 145.4 H Potassium 3.9 Chloride 112 H Carbon Dioxide 25 Anion Gap 8 BUN 19 Creatinine 0.95 Est GFR ( Amer) > 60 Est GFR (Non-Af Amer) > 60 Glucose 201 H Calcium 8.9 Impressions: Head CT 09/19/17 00:00 IMPRESSION: 1. No acute intracranial abnormality by CT criteria. This exam was performed according to our departmental dose-optimization program, which includes automated exposure control, adjustment of the mA and/or kV according to patient size and/or use of iterative reconstruction technique. Chest X-Ray 09/20/17 19:04 IMPRESSION: 1. Status post left IJ line placement with small suspected left pneumothorax. The left IJ line crosses into the right subclavian vein rather than into the IVC. Assessment & Plan - Diagnosis (1) Acute encephalopathy Is this a current diagnosis for this admission?: Yes Plan: Secondary to hypernatremia. The patient also seems to have rather profound dementia. I need to try to get in touch with family members. I am not sure whether he is improved or not. (2) Acute hypernatremia Is this a current diagnosis for this admission?: Yes Plan: Sodium has almost normalized. I am going to get the dietitian to make recommendations on free water flushes. Once we get these going we can stop his IV fluids. 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 Continue current regimen (5) Thrombocytopenia Is this a current diagnosis for this admission?: Yes Plan: Stable (6) Anemia Is this a current diagnosis for this admission?: Yes Plan: He has not had blood drawn in several days until today. He has had a precipitous drop in his hemoglobin however I suspect this is due to hemodilution. There is no evidence of active bleeding. He will have a CBC checked in the morning. Hopefully we can stop his IV fluids as soon as the dietitian make recommendations for free water flushes. (7) Full code status Is this a current diagnosis for this admission?: Yes Plan: No family members are at the bedside. I will try to get in touch with family members to discuss goals of care. - Time Time Spent with patient: 25-34 minutes - Inpatient Certification Medical Necessity: Other - Inpatient hospitalization remains necessary. He still requiring parenteral fluids although we will likely change this over in the next day or so. Goals of care need to be discussed with the patient's family.
[2017-09-23] MEDS ORDERED: DEXTROSE 5%-WATER 1000 ML 1,000 ML IV PRN (17:09)
[2017-09-23 20:16] LABS: ANION GAP 5 (5-19); BLOOD UREA NITROGEN 18 mg/dL (7-20); CALCIUM 8.6 mg/dL (8.4-10.2); CARBON DIOXIDE 26 mmol/L (22-30); CHLORIDE 114 mmol/L (98-107); GLUCOSE 222 mg/dL (75-110); POTASSIUM 3.8 mmol/L (3.6-5.0); SODIUM 144.5 mmol/L (137-145)
[2017-09-24] MEDS: INSULIN LISPRO 100 UNIT/ML 3 ML VIAL SUBCUT PRN ×4 (00:10→18:00)
[2017-09-24] MEDS: HEPARIN SOD (PORCINE) 5,000 UNIT/ML 1 ML SYRINGE SUBCUT SCH ×3 (05:04→22:40)
[2017-09-24 06:11] LABS: ANION GAP 8 (5-19); BLOOD UREA NITROGEN 19 mg/dL (7-20); CALCIUM 8.8 mg/dL (8.4-10.2); CARBON DIOXIDE 27 mmol/L (22-30); CHLORIDE 110 mmol/L (98-107); GLUCOSE 186 mg/dL (75-110); POTASSIUM 4.4 mmol/L (3.6-5.0); SODIUM 144.7 mmol/L (137-145)
--- NOTE | 2017-09-24 17:36 | PDOC PROGRESS REPORT ---
Subjective Progress Note for:: 09/24/17 Subjective:: The patient is a 76-year-old male with a history of Alzheimer's dementia. 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 He has a PEG tube in place. He also has a neurogenic bladder with a chronic indwelling Catalan catheter. He has issues with recurrent UTIs. The patient had been being [facility] for a [facility] He had poor IV access so he was sent to the hospital to finish his course of antibiotics. It was felt that he had altered mental status at the time of admission that was likely secondary to severe hypernatremia. The patient has been receiving D5 water. A urinary tract infection has since been ruled out and it was felt that it was just colonization. His hypernatremia is improving. His IV fluids were stopped today and he has been switched to free water flushes. His tube feedings are being advanced. Overall this patient's quality of life is poor. I am not sure what his cognitive baseline is that he is basically unresponsive he is nonverbal. I have not seen any family members to have a discussion with. Today when I saw the patient richmond andersen is sleeping but arousable. He does not really respond to me talking to him. A review of systems could not be obtained. Reason For Visit: ALTERED MENTAL STATUS Physical Exam Vital Signs: Temp Pulse Resp BP Pulse Ox 99.7 F 94 16 136/73 H 98 09/24/17 16:00 09/24/17 16:00 09/24/17 16:00 09/24/17 16:00 09/24/17 16:00 Intake & Output 09/23/17 09/24/17 09/25/17 06:59 06:59 06:59 Intake Total 2719 5456 2029 Output Total 1100 1200 550 Balance 1619 9306 1479 General appearance: PRESENT: disheveled, other - He is chronically ill- appearing. He is awake but really not aware of his surroundings. Head exam: PRESENT: atraumatic, normocephalic Mouth exam: PRESENT: moist, tongue midline Respiratory exam: PRESENT: other - His lungs sound fairly clear anteriorly. He will not cooperate for an exam. He seems to be diminished in the lower bases Cardiovascular exam: PRESENT: RRR. ABSENT: diastolic murmur, rubs, systolic murmur GI/Abdominal exam: PRESENT: normal bowel sounds, soft. ABSENT: distended, guarding, mass, organolmegaly, rebound, tenderness Rectal exam: PRESENT: deferred Gentrourinary exam: PRESENT: indwelling catheter Extremities exam: PRESENT: other - Left lower extremity is surgically absent. Musculoskeletal exam: ABSENT: ambulatory Neurological exam: PRESENT: altered, awake, aphasic. ABSENT: alert, oriented to person, oriented to place, oriented to time, oriented to situation Psychiatric exam: PRESENT: other - He is he really does not respond to me. Skin exam: PRESENT: dry, intact, warm. ABSENT: cyanosis, rash Results Laboratory Results: 09/23/17 12:45 09/24/17 05:25 09/23/17 09/24/17 19:30 05:25 Sodium 144.5 144.7 Potassium 3.8 4.4 Chloride 114 H 110 H Carbon Dioxide 26 27 Anion Gap 5 8 BUN 18 19 Creatinine 0.96 0.92 Est GFR ( Amer) > 60 > 60 Est GFR (Non-Af Amer) > 60 > 60 Glucose 222 H 186 H Calcium 8.6 8.8 Magnesium 2.1 09/18/17 22:05 Blood Blood Culture - Final NO GROWTH IN 5 DAYS 09/18/17 20:25 Blood Blood Culture - Final NO GROWTH IN 5 DAYS Impressions: Head CT 09/19/17 00:00 IMPRESSION: 1. No acute intracranial abnormality by CT criteria. This exam was performed according to our departmental dose-optimization program, which includes automated exposure control, adjustment of the mA and/or kV according to patient size and/or use of iterative reconstruction technique. Chest X-Ray 09/20/17 19:04 IMPRESSION: 1. Status post left IJ line placement with small suspected left pneumothorax. The left IJ line crosses into the right subclavian vein rather than into the IVC. Assessment & Plan - Diagnosis (1) Acute encephalopathy Is this a current diagnosis for this admission?: Yes Plan: Secondary to hypernatremia. The patient also seems to have rather profound dementia. I need to try to get in touch with family members. I am not sure whether he is improved or not. No family members have been around. I have no idea what his cognitive baseline is. If we cannot reach family members perhaps we could call the skilled facility to find out when he is usually like. He appears to be reaching the end of his life and we need to find someone who can make decisions for him. (2) Acute hypernatremia Is this a current diagnosis for this admission?: Yes Plan: His sodium has normalized. D5 water has been stopped. Free water flushes of been initiated. 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 Continue current regimen (5) Thrombocytopenia Is this a current diagnosis for this admission?: Yes Plan: Stable (6) Anemia Is this a current diagnosis for this admission?: Yes Plan: He has not had blood drawn in several days until yesterday. He has had a precipitous drop in his hemoglobin however I suspect this is due to hemodilution. There is no evidence of active bleeding. He will have a CBC checked in the morning. His IV fluids have been stopped. He has been typed and screened just in case. (7) Full code status Is this a current diagnosis for this admission?: Yes - Time Time Spent with patient: 15-24 minutes - Inpatient Certification Medical Necessity: Other - Inpatient hospitalization remains necessary. We are progressing the patient's tube feedings. I believe that we should try to get in touch with the patient's family if possible prior to discharge. At the very least we need to check with the facility and see what his cognitive baseline is normally. It is difficult to assess whether he is altered or this is just his baseline. In any event his hypernatremia is resolved. Hopefully he can be transferred back to his skilled facility if the family wishes to continue aggressive care in the near future.
[2017-09-24 19:08] LABS: ABSOLUTE EOSINOPHILS # (AUTO) 0.2 10^3/uL (0.0-0.6); ABSOLUTE LYMPHOCYTES (AUTO) 0.9 10^3/uL (0.5-4.7); ABSOLUTE MONOCYTES (AUTO) 0.3 10^3/uL (0.1-1.4); ABSOLUTE NEUT (AUTO) 3.8 10^3/uL (1.7-8.2); BASOPHILS % (AUTO) 0.2 % (0-2); EOSINOPHILS % (AUTO) 3.5 % (0-6); HEMATOCRIT 26.4 % (37.9-51.0); HEMOGLOBIN 8.7 g/dL (13.5-17.0); LYMPHOCYTES % (AUTO) 17.7 % (13-45); MEAN CORPUSCULAR HEMOGLOBIN 26.2 pg (27.0-33.4); MEAN CORPUSCULAR HGB CONC 33.1 g/dL (32.0-36.0); MEAN CORPUSCULAR VOLUME 79 fl (80-97); MONOCYTES % (AUTO) 6.2 % (3-13); PLATELET COUNT 102 10^3/uL (150-450); RED BLOOD COUNT 3.33 10^6/uL (4.35-5.55); RED CELL DISTRIBUTION WIDTH 19.1 % (11.5-14.0); SEGMENTED NEUTROPHILS % (AUTO) 72.4 % (42-78); TOTAL CELLS COUNTED % (AUTO) 100 %; WHITE BLOOD COUNT 5.2 10^3/uL (4.0-10.5)
[2017-09-25] MEDS: INSULIN LISPRO 100 UNIT/ML 3 ML VIAL SUBCUT PRN ×4 (00:12→18:26)
[2017-09-25] MEDS: HEPARIN SOD (PORCINE) 5,000 UNIT/ML 1 ML SYRINGE SUBCUT SCH ×2 (05:27→13:07)
[2017-09-25 05:54] LABS: ALANINE AMINOTRANSFERASE 25 U/L (21-72); ALBUMIN 2.4 g/dL (3.5-5.0); ALKALINE PHOSPHATASE 68 U/L (38-126); ANION GAP 8 (5-19); ASPARTATE AMINO TRANSFERASE 19 U/L (17-59); BLOOD UREA NITROGEN 24 mg/dL (7-20); CALCIUM 8.4 mg/dL (8.4-10.2); CARBON DIOXIDE 25 mmol/L (22-30); CHLORIDE 112 mmol/L (98-107); GLUCOSE 193 mg/dL (75-110); POTASSIUM 4.3 mmol/L (3.6-5.0); SODIUM 144.5 mmol/L (137-145); TOTAL PROTEIN 6.6 g/dL (6.3-8.2)
[2017-09-25 05:59] LABS: BILIRUBIN,TOTAL < 0.1 mg/dL (0.2-1.3)
[2017-09-25] MEDS ORDERED: FUROSEMIDE INJ/PF 20 MG/2 ML SDV IV ONE (14:45)
[2017-09-25 18:08] LABS: ANION GAP 6 (5-19); BLOOD UREA NITROGEN 25 mg/dL (7-20); CALCIUM 8.6 mg/dL (8.4-10.2); CARBON DIOXIDE 27 mmol/L (22-30); CHLORIDE 110 mmol/L (98-107); GLUCOSE 173 mg/dL (75-110); POTASSIUM 4.3 mmol/L (3.6-5.0); SODIUM 142.9 mmol/L (137-145)
--- NOTE | 2017-09-25 19:04 | PDOC PROGRESS REPORT ---
Subjective Progress Note for:: 09/25/17 Subjective:: The patient is a 76-year-old male with Alzheimer's dementia, status post CVA with severe dysphagia requiring PEG tube, he also has a neurogenic bladder with chronic indwelling Catalan catheter and has recurrent UTIs. The patient was being treated for UTI his SNF with IV gentamicin, but they had poor IV access and so had to transfer him to the hospital for continued antibiotic therapy. The patient seen on morning rounds. He is found resting in bed comfortably on room air. Unfortunately, no family members are present. Per nursing he is not having any visitors by family or friends. Therefore, we do not know his true baseline mental status. Will went to contact his emergency contact tomorrow to discuss his usual state of health and mentation. The patient is initially found sleeping, but does wake easily when I say his name. He tells me that he is feeling "fine." He denies fever, chills, chest pain, shortness of breath, cough, abdominal pain and nausea. He then pulled the blanket over his head and refuses to answer any further questions. Reason For Visit: ALTERED MENTAL STATUS Physical Exam Vital Signs: Temp Pulse Resp BP Pulse Ox 99.7 F 88 16 116/60 91 L 09/25/17 16:00 09/25/17 16:00 09/25/17 16:00 09/25/17 16:00 09/25/17 16:00 Intake & Output 09/24/17 09/25/17 09/26/17 06:59 06:59 06:59 Intake Total 5456 4574 2100 Output Total 1200 1540 Balance 4256 3034 2100 General appearance: PRESENT: no acute distress, well-developed, well-nourished, other - Overweight Head exam: PRESENT: atraumatic, normocephalic Eye exam: PRESENT: conjunctiva pink, EOMI, PERRLA. ABSENT: scleral icterus Ear exam: PRESENT: normal external ear exam Mouth exam: PRESENT: moist, tongue midline Neck exam: ABSENT: carotid bruit, JVD, lymphadenopathy, thyromegaly Respiratory exam: PRESENT: crackles - Bibasilar, rhonchi, symmetrical, unlabored. ABSENT: rales, wheezes Cardiovascular exam: PRESENT: RRR, +S1, +S2. ABSENT: diastolic murmur, rubs, systolic murmur Pulses: PRESENT: normal dorsalis pedis pul Vascular exam: PRESENT: normal capillary refill GI/Abdominal exam: PRESENT: normal bowel sounds, soft. ABSENT: distended, guarding, mass, organolmegaly, rebound, tenderness Rectal exam: PRESENT: deferred Extremities exam: PRESENT: full ROM, other - Chronic Left BKA. ABSENT: calf tenderness, clubbing, pedal edema Neurological exam: PRESENT: alert, awake, aphasic - Speech is difficult to understand, other - Limited secondary to patient participation. ABSENT: motor sensory deficit Psychiatric exam: PRESENT: appropriate affect, normal mood. ABSENT: homicidal ideation, suicidal ideation Skin exam: PRESENT: dry, intact, warm. ABSENT: cyanosis, rash Results Laboratory Results: 09/24/17 18:50 09/25/17 17:39 09/24/17 09/24/17 09/25/17 18:50 18:50 05:30 WBC 5.2 RBC 3.33 L Hgb 8.7 L Hct 26.4 L MCV 79 L MCH 26.2 L MCHC 33.1 RDW 19.1 H Plt Count 102 L Seg Neutrophils % 72.4 Lymphocytes % 17.7 Monocytes % 6.2 Eosinophils % 3.5 Basophils % 0.2 Absolute Neutrophils 3.8 Absolute Lymphocytes 0.9 Absolute Monocytes 0.3 Absolute Eosinophils 0.2 Absolute Basophils 0.0 Sodium 144.5 Potassium 4.3 Chloride 112 H Carbon Dioxide 25 Anion Gap 8 BUN 24 H Creatinine 0.86 Est GFR ( Amer) > 60 Est GFR (Non-Af Amer) > 60 Glucose 193 H Calcium 8.4 Magnesium 2.1 Total Bilirubin < 0.1 L AST 19 ALT 25 Alkaline Phosphatase 68 Total Protein 6.6 Albumin 2.4 L Blood Type B POSITIVE Antibody Screen NEGATIVE 09/25/17 17:39 WBC RBC Hgb Hct MCV MCH MCHC RDW Plt Count Seg Neutrophils % Lymphocytes % Monocytes % Eosinophils % Basophils % Absolute Neutrophils Absolute Lymphocytes Absolute Monocytes Absolute Eosinophils Absolute Basophils Sodium 142.9 Potassium 4.3 Chloride 110 H Carbon Dioxide 27 Anion Gap 6 BUN 25 H Creatinine 0.89 Est GFR ( Amer) > 60 Est GFR (Non-Af Amer) > 60 Glucose 173 H Calcium 8.6 Magnesium 2.1 Total Bilirubin AST ALT Alkaline Phosphatase Total Protein Albumin Blood Type Antibody Screen 09/25/17 05:30 NT-Pro-B Natriuret Pep 1340 H Impressions: Head CT 09/19/17 00:00 IMPRESSION: 1. No acute intracranial abnormality by CT criteria. This exam was performed according to our departmental dose-optimization program, which includes automated exposure control, adjustment of the mA and/or kV according to patient size and/or use of iterative reconstruction technique. Chest X-Ray 09/20/17 19:04 IMPRESSION: 1. Status post left IJ line placement with small suspected left pneumothorax. The left IJ line crosses into the right subclavian vein rather than into the IVC. Assessment & Plan - Diagnosis (1) Acute encephalopathy Is this a current diagnosis for this admission?: Yes Plan: Secondary to hypernatremia and UTI. The patient also seems to have profound dementia in the setting of CVA. We will plan to contact the patient's emergency contact tomorrow to discuss his baseline health and mental status; if they are unavailable, we will contact nursing home facility and speak with nursing staff familiar with the patient. The previous provider felt that he appeared to be reaching end of life and it would be important for us to identify the appropriate person to make decisions on his behalf. I have discussed this concern with discharge planning who will assist in identifying the appropriate person. (2) Acute hypernatremia Is this a current diagnosis for this admission?: Yes Plan: Resolved. Patient is no longer requiring IV fluids. He is receiving free water flushes. I do have some concern that the patient may be developing some fluid overload. I discussed with the registered dietitian recommendations for reduced total daily fluid intake given his history of CHF and inability to indicate clearly any developing symptoms. She has advised reduction in free water flushes to 110 mL's every 4 hours. We will monitor sodium closely for stability after these changes. (3) Anemia Is this a current diagnosis for this admission?: Yes Plan: The patient's hemoglobin is noted to be decreased from 12.1-8.7. This is likely secondary to hemodilution. No evidence of bleeding. Babatunde continue to monitor. The patient has been typed and crossed in case of need of transfusion. (4) Obstructive uropathy Is this a current diagnosis for this admission?: Yes Plan: Catalan catheter (5) Thrombocytopenia Is this a current diagnosis for this admission?: Yes Plan: Stable; Heparin is held secondary to PLT 102 Will continue to monitor. (6) Type 2 diabetes mellitus Qualifiers: Diabetes mellitus intermediate insulin use: unspecified intermediate insulin use status Diabetes mellitus complication status: with unspecified complications Qualified Code(s): E11.8 - Type 2 diabetes mellitus with unspecified complications Is this a current diagnosis for this admission?: Yes Plan: Stable, will continue current regiment. (7) CHF (congestive heart failure) Is this a current diagnosis for this admission?: Yes Plan: The patient was noted to have basilar crackles. ProBNP is elevated to 1340. This may be his baseline, unfortunately a previous lab result is not available for comparison. Cardiogram from 12/2016 demonstrating LVEF of 40%. The patient's free water flushes are reduced from 300 mL every 4 hours to 110 mL 's every [address] recommendations. Will provide Lasix 20 mg IV x 1. Will continue to monitor closely for evidence of fluid overload. (8) Nonsustained ventricular tachycardia Is this a current diagnosis for this admission?: Yes Plan: He seemed to call from nursing staff stating that the patient had approximately 30 beats of nonsustained ventricular vent tachycardia not associated with chest pain. Stat BMP and magnesium were ordered and evaluated to be within acceptable limits. Stat EKG is pending. The patient is placed on metoprolol 0.5 mg twice daily We will consult cardiology for medical management recommendations. (9) Full code status Is this a current diagnosis for this admission?: Yes Plan: Importance of identifying the patient's surrogate decision maker is recognized; will place significant effort into this tomorrow. Discharge planning has been asked for assistance. - Time Time Spent with patient: 25-34 minutes Medications reviewed and adjusted accordingly: Yes Anticipated discharge: SNF - Patient's place of residence
--- NOTE | 2017-09-25 21:00 | EKG REPORT ---
SEVERITY:- ABNORMAL ECG - SINUS RHYTHM INFERIOR INFARCT, AGE INDETERMINATE ABNORMAL T, CONSIDER ISCHEMIA, ANT-LAT LEADS : Confirmed by: Regulo Lauren MD 25-Sep-2017 20:59:14
[2017-09-26] MEDS: NORMAL SALINE INJ/PF 0.9% 10 ML SDV IV PRN ×3 (00:18→22:53)
[2017-09-26] MEDS: METOPROLOL TARTRATE 25 MG TABLET PO SCH ×3 (00:18→22:53)
[2017-09-26] MEDS: INSULIN LISPRO 100 UNIT/ML 3 ML VIAL SUBCUT PRN ×5 (00:19→22:54)
[2017-09-26] MEDS: HEPARIN SOD (PORCINE) 5,000 UNIT/ML 1 ML SYRINGE SUBCUT SCH ×4 (00:20→22:32)
[2017-09-26 12:18] LABS: HEMATOCRIT 26.3 % (37.9-51.0); HEMOGLOBIN 8.5 g/dL (13.5-17.0); MEAN CORPUSCULAR HEMOGLOBIN 25.9 pg (27.0-33.4); MEAN CORPUSCULAR HGB CONC 32.5 g/dL (32.0-36.0); MEAN CORPUSCULAR VOLUME 80 fl (80-97); PLATELET COUNT 127 10^3/uL (150-450); RED CELL DISTRIBUTION WIDTH 19.5 % (11.5-14.0); WHITE BLOOD COUNT 5.2 10^3/uL (4.0-10.5)
[2017-09-26 12:34] LABS: ANION GAP 5 (5-19); BLOOD UREA NITROGEN 27 mg/dL (7-20); CALCIUM 8.6 mg/dL (8.4-10.2); CARBON DIOXIDE 28 mmol/L (22-30); CHLORIDE 110 mmol/L (98-107); GLUCOSE 181 mg/dL (75-110); POTASSIUM 4.5 mmol/L (3.6-5.0); SODIUM 143.3 mmol/L (137-145)
--- NOTE | 2017-09-26 13:20 | XCELERA REPORT ---
[address] [address] Transthoracic Echocardiogram Report Name: SEUN TOTH Age: 76 yrs Gender: Male : 1940 Patient Status: Inpatient Patient Location: [address] [place], [place] [id number] Study Date: 09/26/2017 11:38 AM Height: 72 in Weight: 207 lb BSA: 2.2 m2 Reason For Study: CHF, Non-sustained Vtach Ordering Physician: MAN SHAH Performed By: Puja Anglin Interpretation Summary Study quality fair with some views missing due to patient not being co- operative. LVEF visually appears low normal at around 50%. RV systolic function appears low normal. LV relaxation is abnormal. Severely calcified AV leaflets with mild aortic stenosis suggested by doppller data provided. There is a mild amount of tricuspid regurgitation The aortic root is normal size. RV pacemaker lead noted. MMode/2D Measurements & Calculations RVDd: 3.9 cm LVIDd: 4.9 cmFS: 28.0 % Ao root diam: 3.0 cm IVSd: 1.0 cm LVIDs: 3.5 cmEDV(Teich): 114.2 ml LVPWd: 1.0 cmESV(Teich): 52.4 ml Ao root area: 7.2 cm2 EF(Teich): 54.1 % LA dimension: 3.4 cm LVOT diam: 2.4 cm LVOT area: 4.6 cm2 Doppler Measurements & Calculations MV E max janice: MV P1/2t max janice: Ao V2 max: LV V1 max P.8 cm/sec 95.8 cm/sec 240.9 cm/sec 5.2 mmHg MV A max janice: MV P1/2t: 67.9 msec Ao max PG: LV V1 mean P.9 cm/sec MVA(P1/2t): 3.2 cm2 23.2 mmHg 3.0 mmHg MV E/A: 0.79 MV dec slope: Ao V2 mean: LV V1 max: 412.9 cm/sec2 162.4 cm/sec 114.0 cm/sec MV dec time: Ao mean PG: LV V1 mean: 0.23 sec 12.3 mmHg 71.6 cm/sec Ao V2 VTI: LV V1 VTI: 42.3 cm 20.8 cm GLORIA(I,D): 2.3 cm2 GLORIA(V,D): 2.2 cm2 SV(LVOT): 96.1 ml PA V2 max: TR max janice: 74.0 cm/sec 211.7 cm/sec PA max P.2 mmHg TR max P.9 mmHg Left Ventricle LV relaxation is abnormal. Right Ventricle There is a pacemaker lead in the right ventricle. A calcified moderator band is seen in the right ventricle. The right ventricular systolic function is normal. Atria The right atrium is normal. Echodensity noted in LA at mitral annulus likely mitral annular calcification. The left atrium is not well visualized secondary to technical limitations. Mitral Valve Moderate mitral annular calcification noted. The mitral valve leaflets appear thickened, but open well. There is a trace amount of mitral regurgitation. Aortic Valve The aortic valve is heavily calcified. There is mild aortic stenosis. There is a peak gradient of 24 mm of Hg. Peak transaortic jet velocity 243 cm/sec. Tricuspid Valve The tricuspid valve leaflets are thickened and/or calcified, but open well. There is a mild amount of tricuspid regurgitation. RVSP cannot be estimated as IVC was not visualized. Pulmonic Valve The pulmonic valve is not well visualized. Great Vessels The aortic root is normal size. The inferior vena cava was not well visualized. Effusions Pericardium not well visualized to rule out trace effusion. : MAN SHAH > Jose Recio
--- NOTE | 2017-09-26 16:13 | PDOC PROGRESS REPORT ---
Subjective Progress Note for:: 09/26/17 Subjective:: The patient is a 76-year-old male with Alzheimer's dementia, status post CVA with severe dysphagia requiring PEG tube, he also has a neurogenic bladder with chronic indwelling Catalan catheter and has recurrent UTIs. The patient was being treated for UTI his SNF with IV gentamicin, but they had poor IV access and so had to transfer him to the hospital for continued antibiotic therapy. The patient seen on rounds. He is found resting in bed comfortably on room air. Unfortunately, no family members are present. Per nursing he is not having any visitors by family or friends. Therefore, we do not know his true baseline mental status. The patient is initially found sleeping, but does wake easily when I say his name. He tells me that he is feeling "fine." He denies fever, chills, chest pain, cough, abdominal pain and nausea by nodding his head no to my questions. He does nod yes when asked if he is feeling short of breath but is unable to answer questions further. He does confirm that he is breathing easier when assisted to a slightly inclined position. The patient nods his head no when asked if he has friends or family members. He nods yes when asked if he is "pretty much alone." When asked if there is anybody that I can contact to update or ask questions about, he nods his head no. Does appear to be answering my questions appropriately and I do believe that he understands me at this time. Therefore, I asked about his CODE STATUS. He was asked in a variety of different manners and consistently answered that he would not wish to be placed on a ventilator and that he would not wish to be resuscitated. Reason For Visit: ALTERED MENTAL STATUS Physical Exam Vital Signs: Temp Pulse Resp BP Pulse Ox 98.1 F 78 16 115/61 98 09/26/17 15:37 09/26/17 15:37 09/26/17 15:37 09/26/17 15:37 09/26/17 15:37 Intake & Output 09/25/17 09/26/17 09/27/17 06:59 06:59 06:59 Intake Total 4574 2754 Output Total 1540 2275 400 Balance 3034 479 -400 General appearance: PRESENT: no acute distress, well-developed, well-nourished, other - Overweight, chronically ill-appearing. He wakes easily and does respond to yes or no questions in a consistent manner. Head exam: PRESENT: atraumatic, normocephalic Eye exam: PRESENT: conjunctiva pink, EOMI, PERRLA. ABSENT: scleral icterus Ear exam: PRESENT: normal external ear exam Mouth exam: PRESENT: moist, tongue midline Neck exam: ABSENT: carotid bruit, JVD, lymphadenopathy, thyromegaly Respiratory exam: PRESENT: clear to auscultation joaquin, decreased breath sounds - Bibasilar, symmetrical, unlabored. ABSENT: rales, rhonchi, wheezes Cardiovascular exam: PRESENT: RRR, +S1, +S2. ABSENT: diastolic murmur, rubs, systolic murmur Pulses: PRESENT: normal dorsalis pedis pul Vascular exam: PRESENT: normal capillary refill GI/Abdominal exam: PRESENT: normal bowel sounds, soft. ABSENT: distended, guarding, mass, organolmegaly, rebound, tenderness Rectal exam: PRESENT: deferred Extremities exam: PRESENT: other - Left BKA. ABSENT: calf tenderness, clubbing , pedal edema Musculoskeletal exam: ABSENT: ambulatory Neurological exam: PRESENT: alert, awake, CN II-XII grossly intact, aphasic - Speech is difficult to understand; does clearly state "I am fine "answered all other questions with nodding head yes and no. ABSENT: motor sensory deficit Psychiatric exam: PRESENT: appropriate affect, normal mood. ABSENT: homicidal ideation, suicidal ideation Skin exam: PRESENT: dry, intact, warm. ABSENT: cyanosis, rash Results Laboratory Results: 09/26/17 11:30 09/26/17 11:30 09/25/17 09/26/17 09/26/17 17:39 11:30 11:30 WBC 5.2 RBC 3.30 L Hgb 8.5 L Hct 26.3 L MCV 80 MCH 25.9 L MCHC 32.5 RDW 19.5 H Plt Count 127 L Sodium 142.9 143.3 Potassium 4.3 4.5 Chloride 110 H 110 H Carbon Dioxide 27 28 Anion Gap 6 5 BUN 25 H 27 H Creatinine 0.89 0.90 Est GFR ( Amer) > 60 > 60 Est GFR (Non-Af Amer) > 60 > 60 Glucose 173 H 181 H Calcium 8.6 8.6 Magnesium 2.1 09/25/17 05:30 NT-Pro-B Natriuret Pep 1340 H Impressions: Head CT 09/19/17 00:00 IMPRESSION: 1. No acute intracranial abnormality by CT criteria. This exam was performed according to our departmental dose-optimization program, which includes automated exposure control, adjustment of the mA and/or kV according to patient size and/or use of iterative reconstruction technique. Chest X-Ray 09/20/17 19:04 IMPRESSION: 1. Status post left IJ line placement with small suspected left pneumothorax. The left IJ line crosses into the right subclavian vein rather than into the IVC. Assessment & Plan - Diagnosis (1) Acute encephalopathy Is this a current diagnosis for this admission?: Yes Plan: Appears to be improving; perhaps resolved, this may be the patient's baseline. Secondary to hypernatremia and UTI. The patient also seems to have profound dementia in the setting of CVA. We will plan to contact the patient's emergency contact to discuss his baseline health and mental status; if they are unavailable, we will contact longterm facility and speak with nursing staff familiar with the patient. In our discussion today, the patient indicated that he does not have any close family or friends who can speak on his behalf. The previous provider felt that he appeared to be reaching end of life and it would be important for us to identify the appropriate person to make decisions on his behalf. I have discussed this concern with discharge planning who will assist in identifying the appropriate person. Considering involving palliative care to assist with this process. (2) Acute hypernatremia Is this a current diagnosis for this admission?: Yes Plan: Resolved. Patient is no longer requiring IV fluids. He is receiving free water flushes. Yesterday, I had some concern that the patient may be developing some fluid overload. I discussed with the registered dietitian recommendations for reduced total daily fluid intake given his history of CHF and inability to indicate clearly any developing symptoms. She has advised reduction in free water flushes to 110 mL's every 4 hours. We will monitor sodium closely for stability after these changes. (3) Anemia Is this a current diagnosis for this admission?: Yes Plan: The patient's hemoglobin is noted to be decreased from 12.1-8.5. This is likely secondary to hemodilution during correction of hypernatremia. No evidence of bleeding. Also consider anemia of chronic disease versus nutritional deficit. Babatunde continue to monitor. The patient has been typed and crossed in case of need of transfusion. Registered dietitian has been consulted for nutritional needs. (4) Obstructive uropathy Is this a current diagnosis for this admission?: Yes Plan: Catalan catheter (5) Thrombocytopenia Is this a current diagnosis for this admission?: Yes Plan: Improved platelets have trended up to 127 today. Bleeding precautions. Will continue to monitor. (6) Type 2 diabetes mellitus Qualifiers: Diabetes mellitus bed bug exterminator insulin use: unspecified bed bug exterminator insulin use status Diabetes mellitus complication status: with unspecified complications Qualified Code(s): E11.8 - Type 2 diabetes mellitus with unspecified complications Is this a current diagnosis for this admission?: Yes Plan: Stable, will continue current regiment. (7) CHF (congestive heart failure) Is this a current diagnosis for this admission?: Yes Plan: The patient was noted to have basilar crackles. ProBNP is elevated to 1340. This may be his baseline, unfortunately a previous lab result is not available for comparison. Echocardiogram from 12/2016 demonstrating LVEF of 40%. The echocardiogram today demonstrates LVEF is low-normal at approximately 50%. The patient's free water flushes are reduced from 300 mL every 4 hours to 110 mL 's every [address] recommendations. Will provide Lasix 20 mg IV x 1 yesterday. Will continue to monitor closely for evidence of fluid overload. (8) Nonsustained ventricular tachycardia Is this a current diagnosis for this admission?: Yes Plan: He seemed to call from nursing staff stating that the patient had approximately 30 beats of nonsustained ventricular vent tachycardia not associated with chest pain. Stat BMP and magnesium were ordered and evaluated to be within acceptable limits. Patient does have a pacemaker; uncertain if this is an AICD. The patient is placed on metoprolol 0.5 mg twice daily He remains on continuous cardiac telemetry. (9) Full code status Is this a current diagnosis for this admission?: Yes Plan: Importance of identifying the patient's surrogate decision maker is recognized; will place significant effort into this tomorrow. Discharge planning has been asked for assistance. - Time Time Spent with patient: 25-34 minutes Medications reviewed and adjusted accordingly: Yes Anticipated discharge: SNF Within: within 48 hours
[2017-09-27] MEDS: NORMAL SALINE INJ/PF 0.9% 10 ML SDV IV PRN ×2 (05:45→23:06)
[2017-09-27] MEDS: INSULIN LISPRO 100 UNIT/ML 3 ML VIAL SUBCUT PRN ×4 (05:49→23:07)
[2017-09-27] MEDS: HEPARIN SOD (PORCINE) 5,000 UNIT/ML 1 ML SYRINGE SUBCUT SCH ×3 (05:50→23:06)
[2017-09-27] MEDS: METOPROLOL TARTRATE 25 MG TABLET PO SCH (09:11)
[2017-09-27 14:05] LABS: HEMATOCRIT 26.8 % (37.9-51.0); HEMOGLOBIN 8.7 g/dL (13.5-17.0); MEAN CORPUSCULAR HGB CONC 32.7 g/dL (32.0-36.0); MEAN CORPUSCULAR VOLUME 80 fl (80-97); PLATELET COUNT 156 10^3/uL (150-450); RED BLOOD COUNT 3.37 10^6/uL (4.35-5.55); RED CELL DISTRIBUTION WIDTH 19.7 % (11.5-14.0); WHITE BLOOD COUNT 5.3 10^3/uL (4.0-10.5)
--- NOTE | 2017-09-27 14:41 | PDOC DISCHARGE SUMMARY ---
General - Admit/Disc Date/PCP Admission Date/Primary Care Provider: 09/18/17 18:34 Discharge Date: 09/27/17 - Discharge Diagnosis (1) Acute encephalopathy Is this a current diagnosis for this admission?: Yes Summary: Resolved; the patient is now his baseline mentation. This was secondary to hypernatremia. (2) Acute hypernatremia Is this a current diagnosis for this admission?: Yes Summary: Resolved; corrected with IV fluids. Registered dietitian was consulted with the following recommendations: Continuous tube feedings using Glucerna 1.2 at 75 mL's per hour with free water flushes of 110 mL's every 4 hours. Recommend repeat BMP within 1 week. (3) Anemia Is this a current diagnosis for this admission?: Yes Summary: Chronic anemia. The patient was placed on a multivitamin with iron. Hemoglobin at time of discharge is stable at 8.7. Recommend repeat CBC within 7 days. (4) Obstructive uropathy Is this a current diagnosis for this admission?: Yes Summary: Catalan catheter. (5) Thrombocytopenia Is this a current diagnosis for this admission?: Yes (6) Type 2 diabetes mellitus Is this a current diagnosis for this admission?: Yes (7) CHF (congestive heart failure) Is this a current diagnosis for this admission?: Yes Summary: Echocardiogram demonstrated LVEF of low normal at approximately 50%. RV systolic function appears low normal. RV lead relaxation is abnormal. Severely calcified AV leaflets with mild aortic stenosis is suggested. There is a mild amount of tricuspid regurgitation. The aortic root is normal size. RV pacemaker lead is noted. (8) Nonsustained ventricular tachycardia Is this a current diagnosis for this admission?: Yes Summary: While on continuous cardiac telemetry, the patient was noted to have an approximately 30 beat run of nonsustained ventricular tachycardia not associated with chest pain. Stat BMP and magnesium were evaluated to be within acceptable limits. The patient does have a pacemaker; uncertain if this is also an AICD. The patient was placed on metoprolol 12.5 mg twice daily. An echocardiogram was obtained. It then became apparent that the patient's home Coreg had not been continued. He was transitioned back to his Coreg in preparation for discharge. (9) Full code status Is this a current diagnosis for this admission?: Yes Summary: The patient was admitted as a full code. On two separate days I spoke with the patient about his CODE STATUS and on both days he indicated that he wished to be a DNR; therefore his code status was changed to DNR. He also expressed interest in a palliative care referral. I did speak with his family member, Carrie Palomares, who declined palliative care or hospice services at this time. She did state that she would follow up with Mr. Rodriguez and his primary care provider to discuss this option in the near future. - Additional Information Resuscitation Status: Full Code Discharge Diet: Tube Feeding (Comments) - Glucerna 1.2 at 75 ml/hr. Free water flush 110ml every 4 hours. Discharge Activity: Activity As Tolerated Home Medications: Acetaminophen [Tylenol 325 mg Tablet] 650 mg PEG Q6HP PRN 09/18/17 Ascorbic Acid [Vitamin C 500 mg Tablet] 500 mg PEG TID 09/18/17 Atorvastatin Calcium [Lipitor 10 mg Tablet] 10 mg PEG QHS 09/18/17 Carvedilol [Coreg 3.125 mg Tablet] 3.125 mg PEG Q12 09/18/17 Finasteride [Proscar 5 mg Tablet] 5 mg PEG DAILY 09/18/17 Folic Acid [Folvite 1 mg Tablet] 1 mg PEG DAILY 09/18/17 Glucagon,Human Recombinant [Glucagon Emergency Kit] 1 mg SQ PRN PRN 09/18/17 Insulin Lispro [Humalog Insulin (Lispro) 100 unit/mL] 0 units SQ .SLIDING SCALE 09/18/17 Lansoprazole [Prevacid 30 mg Odt Tablet] 30 mg PEG BID 09/18/17 Latanoprost [Xalatan 0.005% Oph Soln 2.5 ml] 1 drop OU QHS 09/18/17 Sennosides/Docusate 8.6-50 mg [Senna Plus Tablet] 1 tab PEG DAILYP PRN 09/18/17 Multivitamins W-Iron [Flintstones Chewable Multivit W/Fe Tab] 2 tab PO DAILY tab.chew 09/27/17 History of Present Illness History of Present Illness: SEUN RODRIGUEZ is a 76 year old male with a past medical history of Alzheimer 's dementia, status post CVA with severe dysphagia requiring PEG tube, he also has a neurogenic bladder with a chronic indwelling Catalan catheter and has recurrent UTIs. The patient was being treated for a UTI at his intermediate facility with IV gentamicin, but they had poor IV access, and so transferred him to the hospital for continued antibiotic therapy. Upon admission the patient was noted to have hypernatremia with an elevated sodium of 174. Hospital Course Hospital Course: Patient was admitted with acute encephalopathy secondary to hypernatremia and dehydration. He had been sent from his intermediate facility for continued treatment of the UTI which was effectively ruled out. The patient does not have a urinary tract infection; rather is colonized with Pseudomonas and enterococcus facialis. As the patient was afebrile with a normal white blood cell count, antibiotics were continued. His sodium was corrected with IV fluids. Dietary was consulted and once his sodium was corrected he was transitioned to free water flushes. He was then noted to have a precipitous drop in his hemoglobin from 12.1 to 8.5. Highly suspect that this was related to hemodilution considering the patient's significant dehydration upon admission , however, he was observed 24 hours to ensure stability of hemoglobin. The patient's emergency contact, Carrie Iyer, was called. She states that she is his niece and has a POA. She states that at baseline he is able to say 1-2 words with very difficult to understand speech. She said that he used to be able to communicate through writing but is having trouble with that now and so does mostly communicate through nodding his head. She is offered a palliative care and hospice referral; which she declines, stating that she would prefer to speak with Mr. Rodriguez prior to agreeing to this. At time of discharge, the patient is in stable condition, returned to his baseline mental status, and tolerating tube feedings at goal. He is discharged back to [facility] where he is a long-term resident. Physical Exam Vital Signs: Temp Pulse Resp BP Pulse Ox 98.5 F 83 18 122/57 L 99 09/27/17 11:57 09/27/17 11:57 09/27/17 11:57 09/27/17 11:57 09/27/17 11:57 Intake & Output 09/26/17 09/27/17 09/28/17 06:59 06:59 06:59 Intake Total 3314 2554 Output Total 8905 1125 Balance 479 1429 General appearance: PRESENT: no acute distress, well-developed, well-nourished, other - Overweight Head exam: PRESENT: atraumatic, normocephalic Eye exam: PRESENT: conjunctiva pink, EOMI, PERRLA. ABSENT: scleral icterus Ear exam: PRESENT: normal external ear exam Mouth exam: PRESENT: moist, tongue midline Neck exam: ABSENT: carotid bruit, JVD, lymphadenopathy, thyromegaly Respiratory exam: PRESENT: clear to auscultation joaquin, symmetrical, unlabored. ABSENT: rales, rhonchi, wheezes Cardiovascular exam: PRESENT: RRR, +S1, +S2. ABSENT: diastolic murmur, rubs, systolic murmur Pulses: PRESENT: normal dorsalis pedis pul Vascular exam: PRESENT: normal capillary refill GI/Abdominal exam: PRESENT: normal bowel sounds, soft. ABSENT: distended, guarding, mass, organolmegaly, rebound, tenderness Rectal exam: PRESENT: deferred Extremities exam: PRESENT: full ROM, other - Lt BKA. ABSENT: calf tenderness, clubbing, pedal edema Musculoskeletal exam: ABSENT: ambulatory Neurological exam: PRESENT: alert, awake, aphasic, other - Mental status difficult to assess secondary to aphasia; at baseline per report. Does follow simple commands.. ABSENT: motor sensory deficit Psychiatric exam: PRESENT: appropriate affect, normal mood. ABSENT: homicidal ideation, suicidal ideation Skin exam: PRESENT: dry, intact, warm. ABSENT: cyanosis, rash Results Laboratory Results: 09/27/17 13:30 09/26/17 11:30 09/27/17 13:30 WBC 5.3 RBC 3.37 L Hgb 8.7 L Hct 26.8 L MCV 80 MCH 26.0 L MCHC 32.7 RDW 19.7 H Plt Count 156 09/25/17 05:30 NT-Pro-B Natriuret Pep 1340 H Impressions: Head CT 09/19/17 00:00 IMPRESSION: 1. No acute intracranial abnormality by CT criteria. This exam was performed according to our departmental dose-optimization program, which includes automated exposure control, adjustment of the mA and/or kV according to patient size and/or use of iterative reconstruction technique. Chest X-Ray 09/20/17 19:04 IMPRESSION: 1. Status post left IJ line placement with small suspected left pneumothorax. The left IJ line crosses into the right subclavian vein rather than into the IVC. Qualifiers - * PATEINT BEING DISCHARGED WITH ANY OF THE FOLLOWING DIAGNOSIS?: No
[2017-09-27] MEDS: ASCORBIC ACID 500 MG TABLET PEG SCH ×2 (15:03→17:12)
[2017-09-27] MEDS ORDERED: LANSOPRAZOLE 30 MG TAB.RAP.DR PEG SCH (18:00)
[2017-09-27] MEDS ORDERED: CARVEDILOL 3.125 MG TABLET PEG SCH (22:00)
[2017-09-27] MEDS ORDERED: ATORVASTATIN CALCIUM 10 MG TABLET PEG SCH (22:00)
[2017-09-27] MEDS ORDERED: LATANOPROST 0.005% OPH SOLN 2.5 ML OU SCH (22:00)
[2017-09-28 05:13] VITALS: BP 113/59
[2017-09-28] MEDS: INSULIN LISPRO 100 UNIT/ML 3 ML VIAL SUBCUT PRN (06:14)
[2017-09-28] MEDS: HEPARIN SOD (PORCINE) 5,000 UNIT/ML 1 ML SYRINGE SUBCUT SCH (06:14)
[2017-09-28] MEDS ORDERED: MULTIVITAMINS W-IRON TABLET, CHEWABLE PO SCH (10:00)
[2017-09-28] MEDS ORDERED: FOLIC ACID 1 MG TABLET PEG SCH (10:00)
== END 2017-09-28 07:39 | DRG 640 ==
LOC: ER 14:55 → UNDOADMIN 18:34 → EH 18:34 → 4W 09-19 16:42
PROVIDERS: ADMIT Emergency Medicine; ATTEND Emergency Medicine
PROC: 05HN33Z Insertion of Infusion Device into Left Internal Jugular Vein, Percutaneous Approach (ICD-10-PCS; principal; 2017-09-20)
PROC: B5141ZA Fluoroscopy of Left Jugular Veins using Low Osmolar Contrast, Guidance (ICD-10-PCS; 2017-09-20)
PROC: B544ZZA Ultrasonography of Left Jugular Veins, Guidance (ICD-10-PCS; 2017-09-20)
DX: E87.1 Hypo-osmolality and hyponatremia (principal); G93.49 Other encephalopathy; I47.2 Ventricular tachycardia; D69.6 Thrombocytopenia, unspecified; I50.9 Heart failure, unspecified; R13.10 Dysphagia, unspecified; N31.9 Neuromuscular dysfunction of bladder, unspecified; E86.0 Dehydration; E87.6 Hypokalemia; N13.9 Obstructive and reflux uropathy, unspecified; I69.391 Dysphagia following cerebral infarction; G30.9 Alzheimer's disease, unspecified; F02.80 Dementia in other diseases classified elsewhere, unspecified severity, without behavioral disturbance, psychotic disturbance, mood disturbance, and anxiety; D64.9 Anemia, unspecified; E11.9 Type 2 diabetes mellitus without complications; Z66 Do not resuscitate; Z79.899 Other long term (current) drug therapy; Z79.4 Long term (current) use of insulin; Z95.0 Presence of cardiac pacemaker; Z93.1 Gastrostomy status
CPT/HCPCS: 36415; 70450; 71045; 80048; 80053; 80170; 81001; 82607; 82746; 82962; 83735; 83880; 84100; 84443; 85025; 85027; 86850; 86900; 86901; 87040; 87086; 87088; 87186; 93005; 93010; 93306; 96372; 99285; C1751; J1642; J1644; J1815; J1940; J3480; J3490; J7060

== ENCOUNTER 2017-10-14 16:15 | Emergency (ER) | payer MEDICARE, MEDICAID ==
[2017-10-14] MEDS ORDERED: NYSTATIN 500000 UNIT/5 ML UDCUP PO ONE (17:07)
--- NOTE | 2017-10-14 17:23 | ER Document Report ---
ED General - General Chief Complaint: Problem with Urinary Catheter Stated Complaint: wound evaluation Time Seen by Provider: 10/14/17 16:27 Mode of Arrival: Medic Information source: [facility] Records, Outside Facility Records Cannot obtain history due to: Other - Aphasia TRAVEL OUTSIDE OF THE [place] IN LAST 30 DAYS: No - HPI Notes: 76-year-old male with a past medical history of Alzheimer's, dementia, status post CVA with severe dysphagia requiring a PEG tube, neurogenic bladder with chronic indwelling Catalan catheter with recurrent UTIs presents to the ER today from his nursing facility [facility] for evaluation of the wound that is on the penile shaft that is being managed by wound care. The wound care nurse was concerned there was some exudate around the wound. No fevers noted. Vitals are stable. Patient was also pointing to mouth, he has a white tongue. Patient is was discharged on 09/26/2017. Patient' s blood pressure 144/73, blood sugars 134 that was taken on ambulance. Patient is afebrile. Patient is able to communicate with shaking his head yes or now. Denies any chest pain, shortness of breath, abdominal pain, fevers or chills, nausea, vomiting, diarrhea, numbness or tingling down bilateral upper or lower extremities. Denies fevers, chills, chest pain,palpitations, shortness of breath, dyspnea, nausea, vomiting, diarrhea, abdominal pain, hematuria,blurred vision, double vision, loss of vision, speech changes, LH, dizziness, syncope, headaches, wheezing, ST, URI, neck pain, weakness, bowel dysfunction, saddle anesthesia, numbness or tingling in bilateral upper or lower extremities equally , muscle paralysis, weakness in bilateral upper or lower extremities equally or rash. - Related Data Allergies/Adverse Reactions: No Known Allergies Allergy (Verified 02/22/17 11:56) Past Medical History - General Information source: Patient, [facility] Records, Outside Facility Records - Social History Smoking Status: Unknown if Ever Smoked Frequency of alcohol use: None Drug Abuse: None Family History: Other - Unobtainable since patient is nonverbal and has dementia. Patient has suicidal ideation: No Patient has homicidal ideation: No - Past Medical History Cardiac Medical History: Reports: Hx Congestive Heart Failure, Hx Coronary Artery Disease - stent x 1, Hx Heart Attack - 2004, Hx Hypercholesterolemia, Hx Hypertension, Hx Peripheral Vascular Disease Pulmonary Medical History: Reports: Hx Asthma - as child, Hx COPD Denies: Hx Bronchitis, Hx Pneumonia, Hx Tuberculosis Neurological Medical History: Denies: Hx Seizures Endocrine Medical History: Reports: Hx Diabetes Mellitus Type 2 Renal/ Medical History: Reports: Hx Benign Prostatic Hyperplasia. Denies: Hx Peritoneal Dialysis GI Medical History: Reports: Hx Gastroesophageal Reflux Disease. Denies: Hx Hiatal Hernia, Hx Ulcer Musculoskeltal Medical History: Reports Hx Arthritis, Reports Hx Musculoskeletal Deformity - BKA Psychiatric Medical History: Reports: Hx Dementia, Hx Depression Denies: Hx Attention Deficit Hyperactivity Disorder, Hx Bipolar Disorder, Hx Schizophrenia Past Surgical History: Reports: Hx Abdominal Surgery, Hx Cardiac Surgery - defibrillator, Hx Internal Defibrillator, Hx Orthopedic Surgery - left BKA, Hx Vascular Surgery - left groin, Other - PEG tube. Denies: Hx Open Heart Surgery - Immunizations Hx Diphtheria, Pertussis, Tetanus Vaccination: No Review of Systems - Review of Systems Constitutional: See HPI EENT: No symptoms reported Cardiovascular: No symptoms reported Respiratory: No symptoms reported Gastrointestinal: No symptoms reported Genitourinary: No symptoms reported Male Genitourinary: See HPI Musculoskeletal: No symptoms reported Skin: No symptoms reported Hematologic/Lymphatic: No symptoms reported Neurological/Psychological: No symptoms reported Physical Exam - Vital signs Vitals: Temp Pulse Resp BP Pulse Ox 99.2 F 86 14 145/75 H 96 10/14/17 16:36 10/14/17 16:36 10/14/17 16:36 10/14/17 16:36 10/14/17 16:36 - Notes Notes: PHYSICAL EXAMINATION: GENERAL: Chronically ill, malnourished d and in no acute distress. HEAD: Atraumatic, normocephalic. EYES: Pupils equal round and reactive to light, extraocular movements intact, sclera anicteric, conjunctiva are normal. ENT: Nares patent, oropharynx clear without exudates. Moist mucous membranes. Noted erythemic base is white coating on tongue. No lesions or nodules noted. NECK: Normal range of motion, supple without lymphadenopathy LUNGS: Breath sounds clear to auscultation bilaterally and equal. No wheezes rales or rhonchi. HEART: Regular rate and rhythm without murmurs ABDOMEN: Soft, nontender, nondistended abdomen. No guarding, no rebound. No masses appreciated. Musculoskeletal: Normal range of motion, no pitting or edema. No cyanosis. intact PEG tube. s/p L BKA, no infection noted. NEUROLOGICAL: Cranial nerves grossly intact. Normal speech, normal gait. Normal sensory, motor exams PSYCH: Normal mood, normal affect. SKIN: Warm, Dry, normal turgor, no rashes or lesions noted. Catalan catheter intact. posterior aspect of penile shaft with with a healing decubitus ulcer no induration, swelling around wound. Scant exudate around wound edges on the posterior aspect of the penile shaft. No drainage from wound, no discoloration , no necrosis noted. Wound is pink, moist. Catalan catheter draining yellow urine. No surrounding lymphadenopathy. Reevaluation has been performed on the patient. Patient vital signs are noted to be Cardiopulmonary exam noted lungs CTA Capillary refill is brisk Right Peripheral pulse are intact all throughout and bounding, Left femoral pulse +2 Skin Examination notes no tenting Course - Re-evaluation Re-evalutation: 10/14/17 17:35 KL 76-year-old male who is in wound management for healing decubitus ulcer to posterior aspect of penile shaft presents today due to wound clinic being concerned that the wounds may be infected. Vitals stable, patient is afebrile. On examination of wound, noted scant exudate around the wound edges, no drainage from wound. Catalan is intact. Will give patient IV dose of vancomycin , and start him on doxycycline as of a wound infection. Noted the rash to his tongue. Patient prescribed nystatin while here, sponge was used to place a coating on patient's tongue, not allowing any excessive drainage since patient does have dysphasia. Patient will need this done 3 times a day until thrush has cleared. We will give a bottle of nystatin home with patient. Patient adamantly denies any fevers or chills, denies any penile pain, abdominal pain, nausea vomiting, diarrhea, chest pain, shortness of breath. At this point I do not see reason to order any labs to urinalysis since patient is stable, afebrile and came here for just a wound reevaluation from his chronic Catalan catheter with a healing penile wound that is managed by wound care. will have patient follow up with his primary care doctor, Dr. Eason tomorrow morning and have him continue wound care. After performing a Medical Screening Examination, I estimate there is LOW risk for COMPARTMENT SYNDROME, ACUTE NEUROVASCULAR INJURY, thus I consider the discharge disposition reasonable. Also, there is no evidence or peritonitis, pyelonephritis, patient sepsis, or toxicity. I have reevaluated this patient multiple times and no significant life threatening changes are noted. The patient and I have discussed the diagnosis and risks, and we agree with discharging home with close follow-up with the understanding that symptoms and presentations can change. We also discussed returning to the Emergency Department immediately if new or worsening symptoms occur. We have discussed the symptoms which are most concerning (e.g., changing or worsening pain, fever , numbness, weakness, cool or painful digits) that necessitate immediate return. 10/14/17 18:04 - Vital Signs Vital signs: Temp Pulse Resp BP Pulse Ox 98.6 F 97 14 100/59 L 97 10/14/17 22:32 10/14/17 22:32 10/14/17 22:32 10/14/17 22:32 10/14/17 22:32 Discharge - Discharge Clinical Impression: Healing decubitus ulcer, Chronic indwelling Catalan catheter, Dysphagia, pharyngeal, Thrush, oral Condition: Good Disposition: REHAB FACILITY Instructions: Oral Thrush ([facility]), Wound Infection ([facility]) Additional Instructions: Nystatin Nystatin is used to treat yeast or fungus infection. It's very effective against Prema, the fungus that causes typical "yeast infections." (Nystatin does not kill bacteria or viruses.) To kill yeast, nystatin must be put directly in contact with the infected area. Nystatin does not get into the blood stream -- for example, you can't take it by mouth to cure a vaginal yeast infection. The most common use for nystatin is yeast infection of the mouth or skin. It's applied directly to the infected area. Sometimes nystatin is given by mouth to eliminate yeast from the intestines. Keep using nystatin until 2 days after all the symptoms are gone, or longer if the doctor wishes. Nystatin is very free of side effects. Contact the doctor if you develop vomiting, abdominal pain, or rash. Catalan Catheter Care Tube Position: Keep the catheter connected to the drainage tubing at all times. Avoid pulling on the catheter. Keep the drainage tube taped to the mid- thigh, on top of your leg (not underneath it). Be sure there are no kinks or loops in the tube. Keep the drainage bag below the bladder. When in bed, the drainage bag should hang below the abdomen but should not lie on the floor. The drainage bag has hooks at the top so it can be hung on a chair or bed. Daily Cleaning: Wash your hands with soap and water before and after caring for your catheter. Twice a day, clean yourself where the catheter goes into the urethra. Use a warm, soapy wash cloth to clean around the urethral opening and the first few inches of the catheter. Females should wash from front to back to decrease the risk of infection from fecal material. After washing with soap, rinse the area with water. Do not put powder around the catheter. Apply ointment only if instructed by your doctor or nurse. Follow up if you develop fever or chills, flank or abdominal pain, blood in the urine, or if urine is not draining into the catheter. Take antibiotic suspension through PEG tube twice a day. Pain wound penile shaft twice a day with soap and water, continue going to wound care and continue following their instructions as you have been doing. Nystatin prescribed for thrush, use a sponge tip applicator, dip in nystatain and brush tongue with nystatin, avoiding any excessive drainage. do this 3 times a day until thrush has resolved. Nystatin bottle has been given to you to take with home. follow-up with your doctor tomorrow morning. Return to the emergency room immediately signs or symptoms worsen. Follow up with urologist if symptoms do not resolve in 7 days. [facility] [place] [facility] [address] [place], [place] [phone] [place] [facility] [address] [place], [place] [phone] Return immediately for any new or worsening symptoms. Follow up with primary care provider, call tomorrow to make followup appointment. Prescriptions: Doxycycline Monohydrate [Vibramycin 5 mg/ml Susp] 100 mg PO BID 10 Days #400 ml Referrals: CHAD HILLIARD MD [Primary Care Provider] - Follow up tomorrow RONY JORDAN MD [EMERITUS] - Follow up in 3-5 days
[2017-10-14] MEDS ORDERED: VANCOMYCIN HCL INJ 1000 MG VIAL IV ONE (17:28)
[2017-10-14 22:33] VITALS: BP 100/59
== END 2017-10-14 22:45 ==
LOC: ER 16:15
DX: L89.899 Pressure ulcer of other site, unspecified stage (principal); R13.13 Dysphagia, pharyngeal phase; B37.0 Candidal stomatitis; Z46.6 Encounter for fitting and adjustment of urinary device; N31.9 Neuromuscular dysfunction of bladder, unspecified; G30.9 Alzheimer's disease, unspecified; F02.80 Dementia in other diseases classified elsewhere, unspecified severity, without behavioral disturbance, psychotic disturbance, mood disturbance, and anxiety; I25.10 Atherosclerotic heart disease of native coronary artery without angina pectoris; I25.2 Old myocardial infarction; E78.00 Pure hypercholesterolemia, unspecified; I11.0 Hypertensive heart disease with heart failure; J44.9 Chronic obstructive pulmonary disease, unspecified; E11.9 Type 2 diabetes mellitus without complications; K21.9 Gastro-esophageal reflux disease without esophagitis; Z93.1 Gastrostomy status; Z87.440 Personal history of urinary (tract) infections; Z95.810 Presence of automatic (implantable) cardiac defibrillator; Z89.512 Acquired absence of left leg below knee
CPT/HCPCS: 99284; 96365; 96366; 87070; 87205; 87077; 87186; J3370

== ENCOUNTER 2017-12-08 13:10 | Inpatient (IN) | payer MEDICARE, MEDICAID ==
--- NOTE | 2017-12-08 14:19 | ER Document Report ---
ED General - General Chief Complaint: Abnormal Lab Results Stated Complaint: ALTERED MENTAL STATUS Time Seen by Provider: 12/08/17 14:04 Notes: [facility] because of abnormal lab values. His sodium level was reported to be 158 when sent to a outpatient lab on 525, 4 days ago. In addition, his chloride is high and his BUN is high and looks like dehydration. 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 Patient is not able to answer questions very well and a poor historian. He has a notable cough that sounds quite congested. Does not answer other questions reliably. Reviewing the patient's charts shows that he has diabetes, peripheral vascular disease, hypertension, GERD, and heart disease. Has had a couple of strokes in the past. Has a history of bladder cancer in supposed to have an indwelling Catalan catheter. TRAVEL OUTSIDE OF THE [place] IN LAST 30 DAYS: No - Related Data Allergies/Adverse Reactions: No Known Allergies Allergy (Verified 02/22/17 11:56) Past Medical History - Social History Smoking Status: Never Smoker Chew tobacco use (# tins/day): No Frequency of alcohol use: None Drug Abuse: None Lives with: Group Home Family History: Other - Unobtainable since patient is nonverbal and has dementia. Patient has suicidal ideation: No Patient has homicidal ideation: No - Past Medical History Cardiac Medical History: Reports: Hx Congestive Heart Failure, Hx Coronary Artery Disease - stent x 1, Hx Heart Attack - 2003, Hx Hypercholesterolemia, Hx Hypertension, Hx Peripheral Vascular Disease, Other - Pacemaker Pulmonary Medical History: Reports: Hx Asthma - as child, Hx COPD Neurological Medical History: Denies: Hx Seizures Endocrine Medical History: Reports: Hx Diabetes Mellitus Type 2 Renal/ Medical History: Reports: Hx Benign Prostatic Hyperplasia. Denies: Hx Peritoneal Dialysis GI Medical History: Reports: Hx Gastroesophageal Reflux Disease. Denies: Hx Hiatal Hernia, Hx Ulcer Musculoskeltal Medical History: Reports Hx Arthritis, Reports Hx Musculoskeletal Deformity - BKA Psychiatric Medical History: Reports: Hx Dementia, Hx Depression Past Surgical History: Reports: Hx Abdominal Surgery, Hx Cardiac Surgery - defibrillator, Hx Internal Defibrillator, Hx Orthopedic Surgery - left BKA, Hx Vascular Surgery - left groin, Other - PEG tube - Immunizations Hx Diphtheria, Pertussis, Tetanus Vaccination: No Review of Systems - Review of Systems -: Yes ROS unobtainable due to patient's medical condition - Confused and does not answer questions appropriately. Hx dementia, strokes Physical Exam - Vital signs Vitals: Pulse Ox 96 12/08/17 13:37 Interpretation: Normal - Notes Notes: PHYSICAL EXAMINATION: GENERAL: Well-appearing, in no acute distress. Not sure patient understands anything being said to him. His speech is difficult to interpret. HEAD: Atraumatic, normocephalic. EYES: Pupils equal round and reactive to light, extraocular movements intact. ENT: oropharynx clear without exudates. Moist mucous membranes. NECK: Normal range of motion, supple. LUNGS: Breath sounds clear and equal bilaterally. Pacemaker left upper chest. Occasional productive sounding cough. HEART: Regular rate and rhythm without murmurs. ABDOMEN: Feeding tube in mid abdomen. Soft, nontender. No guarding or rebound. No masses. Catalan catheter present. BACK: No tenderness throughout entire back. EXTREMITIES: Normal range of motion without pain. Left BKA. Right great toe amputation. NEUROLOGICAL: Speech is difficult to understand. Patient is not able to stand or ambulate. Awake, alert, but not sure of orientation. . PSYCH: Normal mood, normal affect. SKIN: Warm, dry, no rashes. Course - Re-evaluation Re-evalutation: 12/08/17 17:39 Labs noted and hospitalist informed who will admit the patient for treatment of his UTI and rehydration for his hypernatremia. - Vital Signs Vital signs: Temp Pulse Resp BP Pulse Ox 88 15 133/75 H 94 12/08/17 13:47 12/08/17 18:01 12/08/17 17:15 12/08/17 18:00 - Laboratory Result Diagrams: 12/08/17 13:14 12/08/17 13:14 Laboratory results interpreted by me: 12/08/17 12/08/17 12/08/17 13:14 13:14 16:10 Hgb 11.7 L Hct 37.3 L MCV 75 L MCH 23.5 L MCHC 31.2 L RDW 20.9 H Plt Count 121 L Eosinophils % 6.4 H Sodium 163.6 H Chloride 121 H Carbon Dioxide 33 H BUN 46 H Glucose 169 H Total Protein 8.6 H Urine Protein 30 H Ur Leukocyte Esterase LARGE H Urine Ascorbic Acid 40 H - Diagnostic Test Radiology results interpreted by me: 12/08/17 16:16 Chest x-ray shows an enlarged heart but no evidence of congestive failure and no evidence of pneumonia. - EKG Interpretation by Pr EKG shows normal: Sinus rhythm Rate: Normal Rhythm: NSR Heart block present: 1st Degree Additional EKG results interpreted by ak: 12/08/17 14:26 EKG has a nonspecific intraventricular conduction delay. Discharge - Discharge Clinical Impression: Hypernatremia, UTI (urinary tract infection) Condition: Stable Disposition: ADMITTED INPATIENT Admitting Provider: Hospitalist Unit Admitted: Telemetry
[2017-12-08] MEDS ORDERED: 1/2 NORMAL SALINE 1,000 ML IV ONE ×2 (14:30→16:31)
[2017-12-08 15:48] LABS: ABSOLUTE EOSINOPHILS # (AUTO) 0.4 10^3/uL (0.0-0.6); ABSOLUTE LYMPHOCYTES (AUTO) 1.7 10^3/uL (0.5-4.7); ABSOLUTE MONOCYTES (AUTO) 0.4 10^3/uL (0.1-1.4); ABSOLUTE NEUT (AUTO) 3.2 10^3/uL (1.7-8.2); BASOPHILS % (AUTO) 0.8 % (0-2); EOSINOPHILS % (AUTO) 6.4 % (0-6); HEMATOCRIT 37.3 % (37.9-51.0); HEMOGLOBIN 11.7 g/dL (13.5-17.0); LYMPHOCYTES % (AUTO) 30.4 % (13-45); MEAN CORPUSCULAR HEMOGLOBIN 23.5 pg (27.0-33.4); MEAN CORPUSCULAR HGB CONC 31.2 g/dL (32.0-36.0); MEAN CORPUSCULAR VOLUME 75 fl (80-97); MONOCYTES % (AUTO) 6.6 % (3-13); RED BLOOD COUNT 4.96 10^6/uL (4.35-5.55); RED CELL DISTRIBUTION WIDTH 20.9 % (11.5-14.0); SEGMENTED NEUTROPHILS % (AUTO) 55.8 % (42-78); TOTAL CELLS COUNTED % (AUTO) 100 %; WHITE BLOOD COUNT 5.7 10^3/uL (4.0-10.5)
--- NOTE | 2017-12-08 15:55 | RADIOLOGY REPORT (SQ) ---
EXAM DESCRIPTION: CHEST SINGLE VIEW COMPLETED DATE/TIME: 12/08/2017 3:33 pm REASON FOR STUDY: Productive cough COMPARISON: 09/20/2017. NUMBER OF VIEWS: One view. TECHNIQUE: Single frontal radiographic view of the chest acquired. LIMITATIONS: None. FINDINGS: LUNGS AND PLEURA: No opacities, masses or pneumothorax. No pleural effusion. MEDIASTINUM AND HILAR STRUCTURES: No masses. Contour normal. HEART AND VASCULAR STRUCTURES: Heart enlarged without failure. Normal vasculature. BONES: No acute findings. HARDWARE: Defibrillator. OTHER: No other significant finding. IMPRESSION: HEART ENLARGED WITHOUT FAILURE. NO OTHER SIGNIFICANT RADIOGRAPHIC FINDING IN THE CHEST. TECHNICAL DOCUMENTATION: JOB ID: [id number] [employer]- All Rights Reserved Reading location - IP/workstation name: [email or web address]
[2017-12-08 16:02] LABS: ALANINE AMINOTRANSFERASE 46 U/L (21-72); ALBUMIN 3.6 g/dL (3.5-5.0); ALKALINE PHOSPHATASE 105 U/L (38-126); ANION GAP 10 (5-19); ASPARTATE AMINO TRANSFERASE 41 U/L (17-59); BILIRUBIN,DIRECT 0.3 mg/dL (0.0-0.4); BILIRUBIN,TOTAL 0.3 mg/dL (0.2-1.3); BLOOD UREA NITROGEN 46 mg/dL (7-20); CARBON DIOXIDE 33 mmol/L (22-30); CHLORIDE 121 mmol/L (98-107); GLUCOSE 169 mg/dL (75-110); POTASSIUM 4.3 mmol/L (3.6-5.0); SODIUM 163.6 mmol/L (137-145); TOTAL PROTEIN 8.6 g/dL (6.3-8.2)
[2017-12-08 16:36] LABS: AMORPHOUS SEDIMENT,URINE TRACE /HPF; APPEARANCE,URINE CLOUDY; BILIRUBIN,URINE NEGATIVE (NEGATIVE); COLOR,URINE YELLOW; GLUCOSE, URINE NEGATIVE (NEGATIVE); KETONES,URINE NEGATIVE (NEGATIVE); LEUKOCYTE ESTERASE,URINE LARGE (NEGATIVE); NITRITE,URINE NEGATIVE (NEGATIVE); PROTEIN,URINE 30 mg/dL (NEGATIVE); URINE SPECIFIC GRAVITY 1.014; UROBILINOGEN,URINE NEGATIVE mg/dL (<2.0)
[2017-12-08 16:43] LABS: PLATELET CLUMPS PRESENT; PLATELET COUNT 121 10^3/uL (150-450); PLATELET LARGE PRESENT; ROULEAUX SLIGHT
[2017-12-08 16:44] LABS: HYPOCHROMASIA SLIGHT
[2017-12-08] MEDS ORDERED: 1/2 NORMAL SALINE 1,000 ML IV PRN (17:42)
[2017-12-08] MEDS ORDERED: DEXTROSE 50%-WATER 25 GM/50 ML DISP.SYRIN IV PRN ×2 (17:44)
[2017-12-08] MEDS ORDERED: DEXTROSE 40% GEL 15 GM TUBE PO PRN ×2 (17:44)
[2017-12-08] MEDS ORDERED: GLUCAGON,HUMAN RECOMB 1 MG INJ IM PRN (17:44)
[2017-12-08] MEDS ORDERED: ACETAMINOPHEN 325 MG TABLET PEG PRN (17:45)
[2017-12-08] MEDS ORDERED: ALBUTEROL SULFATE 0.083% NEB 2.5 MG/3 ML AMPUL NEB PRN (17:45)
[2017-12-08] MEDS ORDERED: PROMETHAZINE HCL INJ 25 MG/1 ML VIAL IV PRN (17:45)
[2017-12-08] MEDS ORDERED: CEFTRIAXONE 1 GM/D5W RTU 1 GM/50 ML RTUPB IV SCH (18:00)
--- NOTE | 2017-12-08 18:20 | PDOC H&P ---
History of Present Illness Admission Date/PCP: CHAD HILLIARD Patient complains of: Hypernatremia History of Present Illness: SEUN TOTH is a 77 year old male who [facility]. He is awake, but unable to provide any meaningful history. He is chronically tube fed through a PEG. Past Medical History Cardiac Medical History: Reports: Congestive Heart Failure, Coronary Artery Disease - stent x 1, Myocardial Infarction - 2004, Hyperlipidema, Hypertension, Peripheral Vascular Disease, Other - Pacemaker Pulmonary Medical History: Reports: Asthma - as child, Chronic Obstructive Pulmonary Disease (COPD) Denies: Bronchitis, Pneumonia, Tuberculosis Neurological Medical History: Denies: Seizures Endocrine Medical History: Reports: Diabetes Mellitus Type 2 GI Medical History: Reports: Gastroesophageal Reflux Disease Denies: Hiatal Hernia Musculoskeltal Medical History: Reports: Arthritis Psychiatric Medical History: Reports: Dementia, Depression Denies: Attention Deficit Hyperactivity Disorder, Bipolar Disorder Hematology: Reports: Anemia Denies: Sickle Cell Disease Past Surgical History Past Surgical History: Reports: Coronary Stent, Internal Defibrillator, Orthopedic Surgery - left BKA, left great toe amputation, Vascular Surgery - left groin, Other - PEG tube Social History Lives with: [facility] Smoking Status: Never Smoker Frequency of Alcohol Use: None Hx Recreational Drug Use: No Drugs: None Hx Prescription Drug Abuse: No - Advance Directive Resuscitation Status: Full Code - By default. He is unable to have that conversation presently Family History Family History: Other - Unobtainable since patient is encephalopathic and has dementia. Parental Family History Reviewed: No Children Family History Reviewed: No Sibling(s) Family History Reviewed.: No Medication/Allergy Home Medications: Acetaminophen [Tylenol 325 mg Tablet] 650 mg PEG Q6HP PRN 09/18/17 Ascorbic Acid [Vitamin C 500 mg Tablet] 500 mg PEG TID 09/18/17 Atorvastatin Calcium [Lipitor 10 mg Tablet] 10 mg PEG QHS 09/18/17 Carvedilol [Coreg 3.125 mg Tablet] 3.125 mg PEG Q12 09/18/17 Finasteride [Proscar 5 mg Tablet] 5 mg PEG DAILY 09/18/17 Folic Acid [Folvite 1 mg Tablet] 1 mg PEG DAILY 09/18/17 Glucagon,Human Recombinant [Glucagon Emergency Kit] 1 mg SQ PRN PRN 09/18/17 Insulin Lispro [Humalog Insulin (Lispro) 100 unit/mL] 0 units SQ .SLIDING SCALE 09/18/17 Lansoprazole [Prevacid 30 mg Odt Tablet] 30 mg PEG BID 09/18/17 Latanoprost [Xalatan 0.005% Oph Soln 2.5 ml] 1 drop OU QHS 09/18/17 Sennosides/Docusate 8.6-50 mg [Senna Plus Tablet] 1 tab PEG DAILYP PRN 09/18/17 Multivitamins W-Iron [Flintstones Chewable Multivit W/Fe Tab] 2 tab PO DAILY tab.chew 09/27/17 Doxycycline Monohydrate [Vibramycin 5 mg/ml Susp] 100 mg PO BID 10 Days #400 ml 10/14/17 Allergies/Adverse Reactions: No Known Allergies Allergy (Verified 02/22/17 11:56) Review of Systems ROS unobtainable: Due to mental status Physical Exam Vital Signs: Temp Pulse Resp BP Pulse Ox 88 96 12/08/17 13:47 12/08/17 13:37 Intake & Output 12/07/17 12/08/17 12/09/17 05:59 05:59 05:59 Weight 167 lb General appearance: PRESENT: no acute distress, thin, other - Chronically ill- appearing Respiratory exam: PRESENT: clear to auscultation joaquin Cardiovascular exam: PRESENT: RRR GI/Abdominal exam: PRESENT: soft, other - PEG tube in place Gentrourinary exam: PRESENT: indwelling catheter Extremities exam: PRESENT: other - Left BKA, missing right great toe, second toe is bandaged Neurological exam: PRESENT: awake, oriented to person, CN II-XII grossly intact. ABSENT: oriented to place, oriented to time, oriented to situation Psychiatric exam: PRESENT: other - Obviously clouded sensorium Skin exam: PRESENT: warm Results Laboratory Results: 12/08/17 13:14 12/08/17 13:14 12/08/17 12/08/17 12/08/17 13:14 13:14 16:10 WBC 5.7 RBC 4.96 Hgb 11.7 L Hct 37.3 L MCV 75 L MCH 23.5 L MCHC 31.2 L RDW 20.9 H Plt Count 121 L Seg Neutrophils % 55.8 Lymphocytes % 30.4 Monocytes % 6.6 Eosinophils % 6.4 H Basophils % 0.8 Absolute Neutrophils 3.2 Absolute Lymphocytes 1.7 Absolute Monocytes 0.4 Absolute Eosinophils 0.4 Absolute Basophils 0.0 Sodium 163.6 H Potassium 4.3 Chloride 121 H Carbon Dioxide 33 H Anion Gap 10 BUN 46 H Creatinine 0.86 Est GFR ( Amer) > 60 Est GFR (Non-Af Amer) > 60 Glucose 169 H Calcium 10.0 Total Bilirubin 0.3 AST 41 ALT 46 Alkaline Phosphatase 105 Total Protein 8.6 H Albumin 3.6 Urine Color YELLOW Urine Appearance CLOUDY Urine pH 9.0 Ur Specific [place] 1.014 Urine Protein 30 H Urine Glucose (UA) NEGATIVE Urine Ketones NEGATIVE Urine Blood NEGATIVE Urine Nitrite NEGATIVE Ur Leukocyte Esterase LARGE H Urine WBC (Auto) 86 Urine RBC (Auto) 1 Impressions: Chest X-Ray 12/08/17 14:30 IMPRESSION: HEART ENLARGED WITHOUT FAILURE. NO OTHER SIGNIFICANT RADIOGRAPHIC FINDING IN THE CHEST. Assessment & Plan - Diagnosis (1) UTI (urinary tract infection) due to urinary indwelling Catalan catheter Qualifiers: Indwelling urinary catheter type: indwelling urethral catheter Is this a current diagnosis for this admission?: Yes Plan: Empiric Rocephin pending cultures. (2) Hypernatremia Is this a current diagnosis for this admission?: Yes Plan: Continue hypotonic saline and recheck in the morning. (3) Acute encephalopathy Is this a current diagnosis for this admission?: Yes Plan: Unclear what his baseline is. Continue to monitor (4) Dysphagia, oropharyngeal Is this a current diagnosis for this admission?: Yes Plan: Unclear whether he cannot swallow, or just does not. In any case he has a PEG tube (5) Obstructive uropathy Is this a current diagnosis for this admission?: Yes Plan: Chronic indwelling Catalan. 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 transplanted heart: [place] heart Associated angina: without angina Qualified Code(s): I25.10 - Atherosclerotic heart disease of [place] coronary artery without angina pectoris Is this a current diagnosis for this admission?: Yes (9) HTN (hypertension) Qualifiers: Hypertension type: essential hypertension Qualified Code(s): I10 - Essential (primary) hypertension Is this a current diagnosis for this admission?: Yes Plan: Blood pressure has not been taken in the ER. I will hold his home medications until we know what his blood pressure is. (10) History of left below knee amputation Is this a current diagnosis for this admission?: Yes (11) Bladder mass Is this a current diagnosis for this admission?: Yes Plan: Transferred to [facility] first of the year. Unclear status. We will get records.
[2017-12-08] MEDS ORDERED: ENOXAPARIN SODIUM INJ 40 MG/0.4 ML DISP.SYRIN SUBCUT ONE (19:00)
[2017-12-08] MEDS: CEFTRIAXONE SODIUM 1,000 MG in DEXTROSE 5%-WATER 50 ML IV SCH (22:21)
--- NOTE | 2017-12-08 23:39 | EKG REPORT ---
SEVERITY:- ABNORMAL ECG - SINUS RHYTHM FIRST DEGREE AV BLOCK NONSPECIFIC INTRAVENTRICULAR CONDUCTION DELAY : Confirmed by: Marcy Herndon 08-Dec-2017 23:39:28
[2017-12-09] MEDS ORDERED: SENNOSIDES/DOCUSATE 8.6-50 MG 1 EACH TABLET PEG PRN (08:51)
[2017-12-09] MEDS ORDERED: (PENDING PHARMACY ID) (Ascorbic Acid [Vitamin C] 500 MG) PEG SCH (10:00)
[2017-12-09] MEDS: ENOXAPARIN SODIUM INJ 40 MG/0.4 ML DISP.SYRIN SUBCUT SCH (10:03)
[2017-12-09 10:07] LABS: ALBUMIN 3.5 g/dL (3.5-5.0); ANION GAP 11 (5-19); BLOOD UREA NITROGEN 35 mg/dL (7-20); CALCIUM 9.8 mg/dL (8.4-10.2); CARBON DIOXIDE 28 mmol/L (22-30); CHLORIDE 121 mmol/L (98-107); GLUCOSE 147 mg/dL (75-110); PHOSPHORUS 3.4 mg/dL (2.5-4.5); SODIUM 160.2 mmol/L (137-145)
[2017-12-09] MEDS: ASCORBIC ACID 500 MG TABLET PEG SCH ×3 (10:23→16:33)
[2017-12-09] MEDS: FINASTERIDE 5 MG TABLET PO SCH (10:24)
[2017-12-09] MEDS: FOLIC ACID 1 MG TABLET PEG SCH (10:24)
[2017-12-09] MEDS: CARVEDILOL 3.125 MG TABLET PEG SCH ×2 (10:24→21:16)
[2017-12-09] MEDS: LANSOPRAZOLE 30 MG TAB.RAP.DR PEG SCH ×2 (10:24→16:35)
[2017-12-09] MEDS: MULTIVITAMINS W-IRON TABLET, CHEWABLE PEG SCH (10:25)
--- NOTE | 2017-12-09 17:16 | PDOC PROGRESS REPORT ---
Subjective Progress Note for:: 12/09/17 Subjective:: No complaints. Quite slow processing, but pleasant. 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 That was removed surgically. Reason For Visit: HYPERNATREMIA, UTI, DEMENTIA Physical Exam Vital Signs: Temp Pulse Resp BP Pulse Ox 98.0 F 73 18 154/85 H 95 12/09/17 07:37 12/09/17 14:00 12/09/17 07:37 12/09/17 07:37 12/09/17 07:37 Intake & Output 12/08/17 12/09/17 12/10/17 05:59 05:59 05:59 Intake Total 1500 Output Total 1150 Balance 350 Weight 173 lb 4.533 oz 173 lb 4.533 oz General appearance: PRESENT: no acute distress, cooperative Respiratory exam: PRESENT: clear to auscultation joaquin Cardiovascular exam: PRESENT: RRR GI/Abdominal exam: PRESENT: soft. ABSENT: tenderness Gentrourinary exam: PRESENT: indwelling catheter Extremities exam: PRESENT: other - No edema, left BKA Neurological exam: PRESENT: awake Psychiatric exam: PRESENT: unusual affect Skin exam: PRESENT: warm Results Laboratory Results: 12/09/17 09:29 12/09/17 09:29 Sodium 160.2 H Potassium 4.0 Chloride 121 H Carbon Dioxide 28 Anion Gap 11 BUN 35 H Creatinine 0.82 Est GFR ( Amer) > 60 Est GFR (Non-Af Amer) > 60 Glucose 147 H Calcium 9.8 Phosphorus 3.4 Magnesium 2.5 H Albumin 3.5 Impressions: Chest X-Ray 12/08/17 14:30 IMPRESSION: HEART ENLARGED WITHOUT FAILURE. NO OTHER SIGNIFICANT RADIOGRAPHIC FINDING IN THE CHEST. Assessment & Plan - Diagnosis (1) UTI (urinary tract infection) due to urinary indwelling Catalan catheter Qualifiers: Indwelling urinary catheter type: indwelling urethral catheter Is this a current diagnosis for this admission?: Yes Plan: Empiric Rocephin pending cultures. (2) Hypernatremia Is this a current diagnosis for this admission?: Yes Plan: Continue hypotonic saline and recheck in the morning. (3) Acute encephalopathy Is this a current diagnosis for this admission?: Yes Plan: Unclear what his baseline is. Continue to monitor (4) Dysphagia, oropharyngeal Is this a current diagnosis for this admission?: Yes Plan: Unclear whether he cannot swallow, or just does not. In any case he has a PEG tube. Restart tube feeds per most recent dietary consult. (5) Obstructive uropathy Is this a current diagnosis for this admission?: Yes Plan: Chronic indwelling Catalan. 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 transplanted heart: [place] heart Associated angina: without angina Qualified Code(s): I25.10 - Atherosclerotic heart disease of [place] coronary artery without angina pectoris Is this a current diagnosis for this admission?: Yes (9) HTN (hypertension) Qualifiers: Hypertension type: essential hypertension Qualified Code(s): I10 - Essential (primary) hypertension Is this a current diagnosis for this admission?: Yes Plan: Continue current medications (10) History of left below knee amputation Is this a current diagnosis for this admission?: Yes (11) Bladder mass Is this a current diagnosis for this admission?: Yes Plan: Resection performed at [facility] in July. (12) Thrombocytopenia Is this a current diagnosis for this admission?: Yes Plan: Appears to be chronic. Continue to monitor.
[2017-12-09] MEDS: CEFTRIAXONE SODIUM 1,000 MG in DEXTROSE 5%-WATER 50 ML IV SCH (21:16)
[2017-12-09] MEDS: ATORVASTATIN CALCIUM 10 MG TABLET PEG SCH (21:16)
[2017-12-09] MEDS: LATANOPROST 0.005% OPH SOLN 2.5 ML OU SCH (21:16)
[2017-12-10] MEDS: FOLIC ACID 1 MG TABLET PEG SCH (10:20)
[2017-12-10] MEDS: LANSOPRAZOLE 30 MG TAB.RAP.DR PEG SCH ×2 (10:20→18:06)
[2017-12-10] MEDS: ASCORBIC ACID 500 MG TABLET PEG SCH ×3 (10:20→18:06)
[2017-12-10] MEDS: FINASTERIDE 5 MG TABLET PO SCH (10:20)
[2017-12-10] MEDS: MULTIVITAMINS W-IRON TABLET, CHEWABLE PEG SCH (10:21)
[2017-12-10] MEDS: ENOXAPARIN SODIUM INJ 40 MG/0.4 ML DISP.SYRIN SUBCUT SCH (10:23)
[2017-12-10] MEDS: INSULIN LISPRO 100 UNIT/ML 3 ML VIAL SUBCUT PRN (12:16)
--- NOTE | 2017-12-10 12:57 | PDOC PROGRESS REPORT ---
Subjective Progress Note for:: 12/10/17 Subjective:: No overnight events per discussion with RN. Patient awake and intently watching tv in room. Only answered few questions however denied any acute complaints. Reason For Visit: HYPERNATREMIA, UTI, DEMENTIA Physical Exam Vital Signs: Temp Pulse Resp BP Pulse Ox 99.0 F 124 H 16 122/91 H 98 12/10/17 11:18 12/10/17 11:18 12/10/17 11:18 12/10/17 11:18 12/10/17 11:18 Intake & Output 12/09/17 12/10/17 12/11/17 06:59 06:59 06:59 Intake Total 1500 2750 Output Total 1150 700 Balance 350 2050 Weight 78.6 kg 78.6 kg General appearance: PRESENT: no acute distress, thin Head exam: PRESENT: normocephalic Mouth exam: PRESENT: moist Respiratory exam: PRESENT: unlabored Cardiovascular exam: PRESENT: +S1, +S2 GI/Abdominal exam: PRESENT: soft. ABSENT: tenderness Neurological exam: PRESENT: alert, awake. ABSENT: CN II-XII grossly intact, aphasic Psychiatric exam: PRESENT: flat affect Skin exam: PRESENT: dry, other - Chronic skin changes noted. Ulcer on right toe Results Laboratory Results: 12/09/17 09:29 Impressions: Chest X-Ray 12/08/17 14:30 IMPRESSION: HEART ENLARGED WITHOUT FAILURE. NO OTHER SIGNIFICANT RADIOGRAPHIC FINDING IN THE CHEST. Assessment & Plan - Diagnosis (1) UTI (urinary tract infection) Qualifiers: Urinary tract infection type: acute cystitis Hematuria presence: without hematuria Qualified Code(s): N30.00 - Acute cystitis without hematuria Is this a current diagnosis for this admission?: Yes Plan: UA notable for Leuk Esterase, 86 WBC, and +3 bacteria. I do not see a urine culture ordered - Has been treated with Ceftriaxone. Complete 7 day course. Would be reasonable to transition to PO (Cefuroxime or equivalent) (2) Hypernatremia Is this a current diagnosis for this admission?: Yes Plan: Persists, Na 160 on 12/09, will repeat with AM labs. Continue 1/2 IV NS (3) Renal cell carcinoma Qualifiers: Laterality: unspecified laterality Qualified Code(s): C64.9 - Malignant neoplasm of unspecified kidney, except renal pelvis Is this a current diagnosis for this admission?: No Plan: Per records from [facility]: transferred there in July 2017 for persistent hematuria; dx with aggressive transitional cell cancer. This was surgically removed. (4) Acute encephalopathy Is this a current diagnosis for this admission?: Yes Plan: Unclear etiology. Reported history of CVA, unclear if this is residual deficit. Hypernatremia can cause AMS. 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
[2017-12-10] MEDS: CARVEDILOL 3.125 MG TABLET PEG SCH ×2 (13:00→21:20)
[2017-12-10] MEDS ORDERED: ACETAMINOPHEN SOLN 325 MG/10.15 ML UDCUP PEG PRN (14:45)
[2017-12-10] MEDS ORDERED: PROMETHAZINE HCL INJ 25 MG/1 ML VIAL IV PRN (15:00)
[2017-12-10] MEDS: ATORVASTATIN CALCIUM 10 MG TABLET PEG SCH (21:20)
[2017-12-10] MEDS: LATANOPROST 0.005% OPH SOLN 2.5 ML OU SCH (21:20)
[2017-12-10] MEDS: CEFTRIAXONE SODIUM 1,000 MG in DEXTROSE 5%-WATER 50 ML IV SCH (21:20)
[2017-12-11] MEDS: INSULIN LISPRO 100 UNIT/ML 3 ML VIAL SUBCUT PRN ×2 (06:03→23:32)
[2017-12-11 08:27] LABS: ANION GAP 8 (5-19); BLOOD UREA NITROGEN 25 mg/dL (7-20); CALCIUM 9.1 mg/dL (8.4-10.2); CARBON DIOXIDE 24 mmol/L (22-30); CHLORIDE 116 mmol/L (98-107); GLUCOSE 171 mg/dL (75-110); POTASSIUM 3.9 mmol/L (3.6-5.0); SODIUM 147.8 mmol/L (137-145)
[2017-12-11] MEDS: MULTIVITAMINS W-IRON TABLET, CHEWABLE PEG SCH (10:03)
[2017-12-11] MEDS: FINASTERIDE 5 MG TABLET PO SCH (10:03)
[2017-12-11] MEDS: FOLIC ACID 1 MG TABLET PEG SCH (10:03)
[2017-12-11] MEDS: ASCORBIC ACID 500 MG TABLET PEG SCH ×3 (10:03→18:16)
[2017-12-11] MEDS: CARVEDILOL 3.125 MG TABLET PEG SCH ×2 (10:03→23:29)
[2017-12-11] MEDS: LANSOPRAZOLE 30 MG TAB.RAP.DR PEG SCH ×2 (10:03→18:16)
[2017-12-11] MEDS: ENOXAPARIN SODIUM INJ 40 MG/0.4 ML DISP.SYRIN SUBCUT SCH (10:04)
--- NOTE | 2017-12-11 15:52 | PDOC PROGRESS REPORT ---
Subjective Progress Note for:: 12/11/17 Subjective:: 77 yr old male SNF resident, presented on 12/08/17 with generalized weakness and was found to have severe hypernatremia, dehydration and suspected UTI. Past medical history: CVA, dysphagia, PEG Obstructive uropathy- chroic Catalan Dementia L BKA CAD Diabetes Hypertension Hyperlipidemia COPD PVD he is getting IV antibiotics and was treated with 1/2NS for his hypernatremia with increased PEG tube water flushes. Reason For Visit: HYPERNATREMIA, UTI, DEMENTIA Physical Exam Vital Signs: Temp Pulse Resp BP Pulse Ox 97.5 F 65 18 146/72 H 100 12/11/17 12:49 12/11/17 12:49 12/11/17 12:49 12/11/17 12:49 12/11/17 12:49 Intake & Output 12/10/17 12/11/17 12/12/17 06:59 06:59 06:59 Intake Total 2750 3200 Output Total 700 1175 Balance 2049 2024 Weight 78.6 kg 78.6 kg General appearance: PRESENT: no acute distress Head exam: PRESENT: normocephalic Eye exam: ABSENT: scleral icterus Ear exam: PRESENT: normal external ear exam Respiratory exam: PRESENT: symmetrical, unlabored. ABSENT: crackles Cardiovascular exam: PRESENT: RRR GI/Abdominal exam: PRESENT: normal bowel sounds, soft, other - PEG present. ABSENT: tenderness Rectal exam: PRESENT: deferred Gentrourinary exam: PRESENT: indwelling catheter Musculoskeletal exam: PRESENT: other - L BKA Neurological exam: PRESENT: alert, awake Results Laboratory Results: 12/11/17 07:47 12/11/17 07:47 Sodium 147.8 H Potassium 3.9 Chloride 116 H Carbon Dioxide 24 Anion Gap 8 BUN 25 H Creatinine 0.72 Est GFR ( Amer) > 60 Est GFR (Non-Af Amer) > 60 Glucose 171 H Calcium 9.1 12/08/17 18:30 Blood Blood Culture - Final Staphylococcus Epidermidis Impressions: Chest X-Ray 12/08/17 14:30 IMPRESSION: HEART ENLARGED WITHOUT FAILURE. NO OTHER SIGNIFICANT RADIOGRAPHIC FINDING IN THE CHEST. Assessment & Plan - Diagnosis (1) Hypernatremia Is this a current diagnosis for this admission?: Yes Plan: Improving, continue to treat and monitor (2) UTI (urinary tract infection) due to urinary indwelling Catalan catheter Qualifiers: Indwelling urinary catheter type: indwelling urethral catheter Is this a current diagnosis for this admission?: Yes Plan: Day 4 of antibiotic. Unfortunately no urine culture available (3) Left-sided weakness Is this a current diagnosis for this admission?: Yes Plan: Chronic due to prior CVA (4) Obstructive uropathy Is this a current diagnosis for this admission?: Yes Plan: Catalan catheter (5) Peripheral vascular disease Is this a current diagnosis for this admission?: Yes Plan: On Statin. Not on antiplatelet agents due to history of hematuria due to bladder mass. (6) Type 2 diabetes mellitus Qualifiers: Diabetes mellitus mcc insulin use: unspecified psychiatric arnp insulin use status Diabetes mellitus complication status: with unspecified complications Qualified Code(s): E11.8 - Type 2 diabetes mellitus with unspecified complications Is this a current diagnosis for this admission?: Yes Plan: On Insulin sliding scale (7) CAD (coronary artery disease) Qualifiers: Coronary Disease-Associated Artery/Lesion type: [place] artery [place] vs. transplanted heart: [place] heart Associated angina: without angina Qualified Code(s): I25.10 - Atherosclerotic heart disease of [place] coronary artery without angina pectoris Is this a current diagnosis for this admission?: Yes Plan: Continue outpatient medications (8) HTN (hypertension) Qualifiers: Hypertension type: essential hypertension Qualified Code(s): I10 - Essential (primary) hypertension Is this a current diagnosis for this admission?: Yes (9) History of left below knee amputation Is this a current diagnosis for this admission?: Yes (10) History of CVA (cerebrovascular accident) Is this a current diagnosis for this admission?: Yes Plan: Continue outpatient medications (11) Bladder mass Is this a current diagnosis for this admission?: Yes Plan: Outpatient urology follow up - Time Time Spent with patient: 25-34 minutes
[2017-12-11] MEDS: ATORVASTATIN CALCIUM 10 MG TABLET PEG SCH (23:28)
[2017-12-11] MEDS: LATANOPROST 0.005% OPH SOLN 2.5 ML OU SCH (23:29)
[2017-12-12] MEDS: CEFTRIAXONE SODIUM 1,000 MG in DEXTROSE 5%-WATER 50 ML IV SCH ×2 (00:47→21:49)
[2017-12-12] MEDS: ENOXAPARIN SODIUM INJ 40 MG/0.4 ML DISP.SYRIN SUBCUT SCH (09:03)
[2017-12-12] MEDS: MULTIVITAMINS W-IRON TABLET, CHEWABLE PEG SCH (09:19)
[2017-12-12] MEDS: FOLIC ACID 1 MG TABLET PEG SCH (09:20)
[2017-12-12] MEDS: CARVEDILOL 3.125 MG TABLET PEG SCH ×2 (09:20→21:49)
[2017-12-12] MEDS: FINASTERIDE 5 MG TABLET PO SCH (09:20)
[2017-12-12] MEDS: LANSOPRAZOLE 30 MG TAB.RAP.DR PEG SCH ×2 (09:20→17:46)
[2017-12-12] MEDS: ASCORBIC ACID 500 MG TABLET PEG SCH ×3 (09:20→17:46)
--- NOTE | 2017-12-12 13:30 | PDOC PROGRESS REPORT ---
Subjective Progress Note for:: 12/12/17 Subjective:: 77 yr old male SNF resident, presented on 12/08/17 with generalized weakness and was found to have severe hypernatremia, dehydration and suspected UTI. Past medical history: CVA, dysphagia, PEG Obstructive uropathy- chroic Catalan Dementia L BKA CAD Diabetes Hypertension Hyperlipidemia COPD PVD He is on day 5 of Rocephin for UTI and was treated with 1/2NS for his hypernatremia with increased PEG tube water flushes. Continue to monitor sodium and plan to discharge once stable. Reason For Visit: HYPERNATREMIA, UTI, DEMENTIA Physical Exam Vital Signs: Temp Pulse Resp BP Pulse Ox 97.4 F 82 18 118/82 93 12/12/17 12:00 12/12/17 12:00 12/12/17 12:00 12/12/17 12:00 12/12/17 12:00 Intake & Output 12/11/17 12/12/17 12/13/17 06:59 06:59 06:59 Intake Total 3200 1748 Output Total 1175 750 Balance 2024 998 Weight 78.6 kg 78.6 kg General appearance: PRESENT: no acute distress Head exam: PRESENT: normocephalic Mouth exam: PRESENT: moist Respiratory exam: PRESENT: symmetrical, unlabored. ABSENT: wheezes Cardiovascular exam: PRESENT: RRR GI/Abdominal exam: PRESENT: normal bowel sounds, soft, other - PEG Gentrourinary exam: PRESENT: indwelling catheter Musculoskeletal exam: PRESENT: other - L BKA Neurological exam: PRESENT: alert, awake, aphasic Results Laboratory Results: 12/11/17 07:47 Impressions: Chest X-Ray 12/08/17 14:30 IMPRESSION: HEART ENLARGED WITHOUT FAILURE. NO OTHER SIGNIFICANT RADIOGRAPHIC FINDING IN THE CHEST. Assessment & Plan - Diagnosis (1) Hypernatremia Is this a current diagnosis for this admission?: Yes Plan: Improving, continue to treat and monitor (2) UTI (urinary tract infection) due to urinary indwelling Catalan catheter Qualifiers: Indwelling urinary catheter type: indwelling urethral catheter Is this a current diagnosis for this admission?: Yes Plan: Day 5 of ceftriaxone Unfortunately no urine culture available (3) Left-sided weakness Is this a current diagnosis for this admission?: Yes Plan: Chronic due to prior CVA (4) Obstructive uropathy Is this a current diagnosis for this admission?: Yes Plan: Catalan catheter (5) Peripheral vascular disease Is this a current diagnosis for this admission?: Yes Plan: On Statin. Not on antiplatelet agents due to history of hematuria due to bladder mass. 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 transplanted heart: [place] heart Associated angina: without angina Qualified Code(s): I25.10 - Atherosclerotic heart disease of [place] coronary artery without angina pectoris Is this a current diagnosis for this admission?: Yes Plan: Continue outpatient medications (8) HTN (hypertension) Qualifiers: Hypertension type: essential hypertension Qualified Code(s): I10 - Essential (primary) hypertension Is this a current diagnosis for this admission?: Yes Plan: stable (9) History of left below knee amputation Is this a current diagnosis for this admission?: Yes (10) History of CVA (cerebrovascular accident) Is this a current diagnosis for this admission?: Yes Plan: Continue outpatient medications (11) Bladder mass Is this a current diagnosis for this admission?: Yes - Time Time Spent with patient: 25-34 minutes
[2017-12-12 15:13] LABS: ANION GAP 9 (5-19); BLOOD UREA NITROGEN 24 mg/dL (7-20); CALCIUM 9.2 mg/dL (8.4-10.2); CARBON DIOXIDE 25 mmol/L (22-30); CHLORIDE 113 mmol/L (98-107); GLUCOSE 201 mg/dL (75-110); PHOSPHORUS 3.4 mg/dL (2.5-4.5); POTASSIUM 4.8 mmol/L (3.6-5.0); SODIUM 147.3 mmol/L (137-145)
[2017-12-12] MEDS: INSULIN LISPRO 100 UNIT/ML 3 ML VIAL SUBCUT PRN (17:47)
[2017-12-12] MEDS: LATANOPROST 0.005% OPH SOLN 2.5 ML OU SCH (21:49)
[2017-12-12] MEDS: ATORVASTATIN CALCIUM 10 MG TABLET PEG SCH (21:49)
[2017-12-13] MEDS: INSULIN LISPRO 100 UNIT/ML 3 ML VIAL SUBCUT PRN ×3 (05:58→17:27)
[2017-12-13] MEDS ORDERED: 1/2 NORMAL SALINE 1,000 ML IV PRN (07:44)
[2017-12-13] MEDS: LANSOPRAZOLE 30 MG TAB.RAP.DR PEG SCH ×2 (11:25→16:59)
[2017-12-13] MEDS: ASCORBIC ACID 500 MG TABLET PEG SCH ×3 (11:25→17:00)
[2017-12-13] MEDS: CARVEDILOL 3.125 MG TABLET PEG SCH (11:26)
[2017-12-13] MEDS: FOLIC ACID 1 MG TABLET PEG SCH (11:26)
[2017-12-13] MEDS: FINASTERIDE 5 MG TABLET PO SCH (11:26)
[2017-12-13] MEDS: ENOXAPARIN SODIUM INJ 40 MG/0.4 ML DISP.SYRIN SUBCUT SCH (11:27)
[2017-12-13] MEDS: MULTIVITAMINS W-IRON TABLET, CHEWABLE PEG SCH (11:29)
[2017-12-13 12:43] LABS: ANION GAP 9 (5-19); BLOOD UREA NITROGEN 27 mg/dL (7-20); CALCIUM 9.1 mg/dL (8.4-10.2); CARBON DIOXIDE 25 mmol/L (22-30); CHLORIDE 112 mmol/L (98-107); GLUCOSE 152 mg/dL (75-110); POTASSIUM 4.5 mmol/L (3.6-5.0); SODIUM 146.4 mmol/L (137-145)
--- NOTE | 2017-12-13 13:47 | PDOC TRANSFER SUMMARY ---
General - Admit/Disc Date/PCP Admission Date/Primary Care Provider: 12/08/17 17:55 CHAD HILLIARD Discharge Date: 12/13/17 - Discharge Diagnosis (1) Hypernatremia Is this a current diagnosis for this admission?: Yes Summary: Due to dehydration- resolved (2) UTI (urinary tract infection) due to urinary indwelling Catalan catheter Is this a current diagnosis for this admission?: Yes (3) Left-sided weakness Is this a current diagnosis for this admission?: Yes (4) Obstructive uropathy Is this a current diagnosis for this admission?: Yes Summary: maintain Catalan catheter (5) Peripheral vascular disease Is this a current diagnosis for this admission?: Yes (6) Type 2 diabetes mellitus Is this a current diagnosis for this admission?: Yes (7) CAD (coronary artery disease) Is this a current diagnosis for this admission?: Yes (8) HTN (hypertension) Is this a current diagnosis for this admission?: Yes (9) History of left below knee amputation Is this a current diagnosis for this admission?: Yes (10) History of CVA (cerebrovascular accident) Is this a current diagnosis for this admission?: Yes (11) Bladder mass Is this a current diagnosis for this admission?: Yes - Additional Information Resuscitation Status: Full Code - By default. He is unable to have that conversation presently Discharge Diet: Tube Feeding (Comments) Discharge Activity: Supervised Activity Home Medications: Acetaminophen [Tylenol 325 mg Tablet] 650 mg PEG Q6HP PRN 09/18/17 Atorvastatin Calcium [Lipitor 10 mg Tablet] 10 mg PEG QHS 09/18/17 Carvedilol [Coreg 3.125 mg Tablet] 3.125 mg PEG Q12 09/18/17 Finasteride [Proscar 5 mg Tablet] 5 mg PEG DAILY 09/18/17 Folic Acid [Folvite 1 mg Tablet] 1 mg PEG DAILY 09/18/17 Glucagon,Human Recombinant [Glucagon Emergency Kit] 1 mg SQ PRN PRN 09/18/17 Insulin Lispro [Humalog Insulin (Lispro) 100 unit/mL] 0 units SQ .SLIDING SCALE 09/18/17 Lansoprazole [Prevacid 30 mg Odt Tablet] 30 mg PEG BID 09/18/17 Latanoprost [Xalatan 0.005% Oph Soln 2.5 ml] 1 drop OU QHS 09/18/17 Sennosides/Docusate 8.6-50 mg [Senna Plus Tablet] 1 tab PEG DAILYP PRN 09/18/17 Ascorbic Acid [Vitamin C] 500 mg PEG TID 12/08/17 Multivitamins W-Iron [Flintstones Chewable Multivit W/Fe Tab] 2 tab PEG DAILY Ciprofloxacin HCl [Cipro 500 mg Tablet] 250 mg PEG Q12 5 Days #10 tablet Lactobacillus Acidophilus [Bacid 250 mg Tablet] 500 mg PEG BID tab 12/13/17 History of Present Illness Admission Date/PCP: 12/08/17 17:55 CHAD HILLIARD History of Present Illness: 77 yr old male SNF resident, presented on 12/08/17 with generalized weakness and encephalopathy and was found to have severe hypernatremia, dehydration and UTI. Past medical history: CVA, dysphagia, PEG Obstructive uropathy- chroic Catalan Dementia L BKA CAD Diabetes Hypertension Hyperlipidemia COPD PVD He was treated with increased PEG tube water flushes, hypotonic IV fluids and antibiotics for UTI. He is doing better and hypernatremia has improved.' The patient is stable for discharge. Follow up PCP in 1 week BMP on 12/18/17 to follow up on hypernatremia Hospital Course Hospital Course: As above Physical Exam Vital Signs: Temp Pulse Resp BP Pulse Ox 98.4 F 88 16 142/71 H 97 12/13/17 04:00 12/13/17 07:00 12/13/17 04:00 12/13/17 04:00 12/13/17 04:00 Intake & Output 12/12/17 12/13/17 12/14/17 06:59 06:59 06:59 Intake Total 1748 55 Output Total 750 1400 Balance 998 -1345 Weight 78.6 kg 85.7 kg General appearance: PRESENT: no acute distress Respiratory exam: PRESENT: symmetrical, unlabored GI/Abdominal exam: PRESENT: other - PEG tube presnt Results Laboratory Results: 12/13/17 11:45 12/12/17 12/13/17 14:50 11:45 Sodium 147.3 H 146.4 H Potassium 4.8 4.5 Chloride 113 H 112 H Carbon Dioxide 25 25 Anion Gap 9 9 BUN 24 H 27 H Creatinine 0.73 0.72 Est GFR ( Amer) > 60 > 60 Est GFR (Non-Af Amer) > 60 > 60 Glucose 201 H 152 H Calcium 9.2 9.1 Phosphorus 3.4 Magnesium 2.1 Impressions: Chest X-Ray 12/08/17 14:30 IMPRESSION: HEART ENLARGED WITHOUT FAILURE. NO OTHER SIGNIFICANT RADIOGRAPHIC FINDING IN THE CHEST. Transfer Plan - Time Spent with Patient Time spent with patient: Greater than 30 Minutes Qualifiers - * PATIENT BEING DISCHARGED WITH ANY OF THE FOLLOWING DIAGNOSIS: No
[2017-12-13] MEDS ORDERED: LACTOBACILLUS ACIDOPHILUS 250 MG TAB PEG ONE (15:00)
[2017-12-13] MEDS ORDERED: CIPROFLOXACIN HCL 500 MG TABLET PEG ONE (16:00)
[2017-12-13] MEDS ORDERED: LACTOBACILLUS ACIDOPHILUS 250 MG TAB PEG SCH (18:00)
[2017-12-13 18:26] VITALS: BP 115/72
[2017-12-13] MEDS ORDERED: CIPROFLOXACIN HCL 500 MG TABLET PEG SCH (22:00)
== END 2017-12-13 19:40 | DRG 698 ==
LOC: ER 13:10 → EH 17:55 → 4N 20:32
PROVIDERS: ADMIT Internal Medicine; ATTEND Internal Medicine
PROC: 3E0F73Z Introduction of Anti-inflammatory into Respiratory Tract, Via Natural or Artificial Opening (ICD-10-PCS; principal; 2017-12-10)
DX: T83.511A Infection and inflammatory reaction due to indwelling urethral catheter, initial encounter (principal); G93.40 Encephalopathy, unspecified; E87.0 Hyperosmolality and hypernatremia; E44.0 Moderate protein-calorie malnutrition; N30.00 Acute cystitis without hematuria; C64.9 Malignant neoplasm of unspecified kidney, except renal pelvis; I69.354 Hemiplegia and hemiparesis following cerebral infarction affecting left non-dominant side; F03.90 Unspecified dementia, unspecified severity, without behavioral disturbance, psychotic disturbance, mood disturbance, and anxiety; Y84.6 Urinary catheterization as the cause of abnormal reaction of the patient, or of later complication, without mention of misadventure at the time of the procedure; N13.9 Obstructive and reflux uropathy, unspecified; I73.9 Peripheral vascular disease, unspecified; E11.51 Type 2 diabetes mellitus with diabetic peripheral angiopathy without gangrene; I25.10 Atherosclerotic heart disease of native coronary artery without angina pectoris; N32.9 Bladder disorder, unspecified; E86.0 Dehydration; E78.00 Pure hypercholesterolemia, unspecified; J44.9 Chronic obstructive pulmonary disease, unspecified; K21.9 Gastro-esophageal reflux disease without esophagitis; M19.90 Unspecified osteoarthritis, unspecified site; D64.9 Anemia, unspecified; F32.9 Major depressive disorder, single episode, unspecified; D69.6 Thrombocytopenia, unspecified; R13.12 Dysphagia, oropharyngeal phase; N40.0 Benign prostatic hyperplasia without lower urinary tract symptoms; I10 Essential (primary) hypertension; I44.0 Atrioventricular block, first degree; I69.391 Dysphagia following cerebral infarction; Z68.23 Body mass index [BMI] 23.0-23.9, adult; I25.2 Old myocardial infarction; Z89.512 Acquired absence of left leg below knee; Z79.899 Other long term (current) drug therapy; Z95.5 Presence of coronary angioplasty implant and graft; Z95.0 Presence of cardiac pacemaker; Z79.4 Long term (current) use of insulin; Z89.611 Acquired absence of right leg above knee; Z93.1 Gastrostomy status
CPT/HCPCS: 36415; 71045; 80048; 80053; 80069; 81001; 82962; 83735; 84100; 85025; 87040; 87077; 87186; 93005; 93010; 96360; 96361; 99285; J0696; J1650; J1815; J3490

== ENCOUNTER 2017-12-21 10:33 | Emergency (ER) | payer MEDICARE, MEDICAID ==
--- NOTE | 2017-12-21 11:36 | ER Document Report ---
ED General - General Mode of Arrival: Medic Information source: Emergency Med Personnel TRAVEL OUTSIDE OF THE [place] IN LAST 30 DAYS: No - General Chief Complaint: Problem with Urinary Catheter Stated Complaint: GENERALIZED WEAKNESS Time Seen by Provider: 12/21/17 11:22 Notes: Patient is a 77 year old male with HTN, CAD, CHF, GERD, COPD, peripheral vascular disease and a history of NV presents to the emergency department from [facility] for difficulties inserting urinary catheter. Nurse states staff at [facility]way stated the patient's catheter has to be changed every 30 days and when attempting to put the catheter back in this morning had difficulty doing so. Patient is demented therefore history was obtained from nursing staff and [facility] records. Patient was admitted and discharged here 8 days ago for a catheter associated UTI. (SHLOMO BARAHONA) - Related Data Allergies/Adverse Reactions: No Known Allergies Allergy (Verified 02/22/17 11:56) Past Medical History - General Information source: [facility] Records Cannot obtain history due to: Dementia - Social History Smoking Status: Unknown if Ever Smoked Family History: Other - Unobtainable since patient is nonverbal and has dementia. - Past Medical History Cardiac Medical History: Reports: Hx Congestive Heart Failure, Hx Coronary Artery Disease - stent x 1, Hx Heart Attack - 2004, Hx Hypercholesterolemia, Hx Hypertension, Hx Peripheral Vascular Disease Pulmonary Medical History: Reports: Hx Asthma - as child, Hx COPD Endocrine Medical History: Reports: Hx Diabetes Mellitus Type 2 Renal/ Medical History: Reports: Hx Benign Prostatic Hyperplasia GI Medical History: Reports: Hx Gastroesophageal Reflux Disease Musculoskeltal Medical History: Reports Hx Arthritis, Reports Hx Musculoskeletal Deformity - BKA Psychiatric Medical History: Reports: Hx Dementia, Hx Depression Past Surgical History: Reports: Hx Abdominal Surgery, Hx Cardiac Surgery - defibrillator, Hx Coronary Stent, Hx Internal Defibrillator, Hx Orthopedic Surgery - left BKA, Hx Vascular Surgery - left groin, Other - PEG tube - Immunizations Hx Diphtheria, Pertussis, Tetanus Vaccination: No Review of Systems - Review of Systems -: Yes ROS unobtainable due to patient's medical condition Genitourinary: See HPI Physical Exam - General General appearance: Appears well, Alert - HEENT Head: Normocephalic, Atraumatic Eyes: Normal Conjunctiva: Normal Extraocular movements intact: Yes Pupils: PERRL Mucous membranes: Normal Neck: Normal - Respiratory Respiratory status: No respiratory distress - Cardiovascular Rhythm: Regular - Abdominal Inspection: Normal - Back Back: Normal - Extremities General upper extremity: Normal ROM General lower extremity: Other - Left leg BKA. Right Great toe amputation. - Neurological Cognition: Other - Demented, at basline. - Psychological Associated symptoms: Normal affect, Normal mood - Skin Skin Temperature: Warm Skin Moisture: Dry Skin Color: Normal - Genitourinary Notes: Ventral surface of penis shaft appears flayed, consistent with catheter history. The middle of ventral area of shaft appears freshly eroded and is tender to palpation. Base of penis has a small amount of urine excretion, possibly where urethra is located. (SHLOMO BARAHONA) Course - Re-evaluation Re-evalutation: 12/21/17 13:14 Catalan catheter was placed by the PCT after using lidocaine jelly for lubrication and pain control. 700 mL's of clear urine was drained. (OTILIA WILL) Discharge - Discharge Clinical Impression: Acute urinary obstruction, Encounter for Catalan catheter replacement Condition: Stable Disposition: HOME-SNF (ED ONLY) Additional Instructions: Follow-up with your doctor as needed. RETURN TO THE EMERGENCY ROOM IF ANY NEW OR WORSENING SYMPTOMS. Referrals: CHAD HILLIARD MD [Primary Care Provider] - Follow up as needed Scribe Attestation: 12/21/17 13:15 I personally performed the services described in the documentation, reviewed and edited the documentation which was dictated to the scribe in my presence, and it accurately records my words and actions. (OTILIA WILL) Scribe Documentation - Scribe Written by Scribe:: Yuli Clark, 12/21/2017 11:55 acting as scribe for :: Amelia
[2017-12-21] MEDS ORDERED: LIDOCAINE 2% URO-JET 5 ML KIT MM ONE (11:59)
[2017-12-21 17:09] VITALS: BP 131/65
== END 2017-12-21 17:13 ==
LOC: ER 10:33
DX: T83.9XXA Unspecified complication of genitourinary prosthetic device, implant and graft, initial encounter (principal); N13.9 Obstructive and reflux uropathy, unspecified; R53.1 Weakness; I10 Essential (primary) hypertension; I25.10 Atherosclerotic heart disease of native coronary artery without angina pectoris; J44.9 Chronic obstructive pulmonary disease, unspecified; I73.9 Peripheral vascular disease, unspecified; I25.2 Old myocardial infarction
CPT/HCPCS: 99284; 51702; A9270; J3490

== ENCOUNTER 2018-02-17 08:45 | Inpatient (IN) | payer MEDICARE, MEDICAID ==
--- NOTE | 2018-02-17 09:10 | ER Document Report ---
ED General - General Chief Complaint: Altered Mental Status Stated Complaint: ALTERED MENTAL STATUS Time Seen by Provider: 02/17/18 08:50 Notes: This is a 77-year-old male coming from a residential who reportedly was not acting normal this morning. Patient has limited ability to communicate because he has had a significant stroke affecting his right side. Left BKA. Patient denies any issues at this time. Is able to communicate with yes and no answers and seems appropriate. TRAVEL OUTSIDE OF THE [place] IN LAST 30 DAYS: No - HPI Onset: Just prior to arrival Severity: None Pain Level: Denies Associated symptoms: None - Related Data Allergies/Adverse Reactions: No Known Allergies Allergy (Verified 02/22/17 11:56) Past Medical History - General Information source: [facility] Records - Social History Smoking Status: Smoker,Current Status Unk Frequency of alcohol use: None Drug Abuse: None Lives with: [facility] Family History: Other - Unobtainable since patient is nonverbal and has dementia. Patient has suicidal ideation: No Patient has homicidal ideation: No - Past Medical History Cardiac Medical History: Reports: Hx Congestive Heart Failure, Hx Coronary Artery Disease - stent x 1, Hx Heart Attack - 2003, Hx Hypercholesterolemia, Hx Hypertension, Hx Peripheral Vascular Disease Pulmonary Medical History: Reports: Hx Asthma - as child, Hx COPD Denies: Hx Bronchitis, Hx Pneumonia, Hx Tuberculosis Neurological Medical History: Denies: Hx Seizures Endocrine Medical History: Reports: Hx Diabetes Mellitus Type 2 Renal/ Medical History: Reports: Hx Benign Prostatic Hyperplasia. Denies: Hx Peritoneal Dialysis GI Medical History: Reports: Hx Gastroesophageal Reflux Disease. Denies: Hx Hiatal Hernia, Hx Ulcer Musculoskeletal Medical History: Reports Hx Arthritis, Reports Hx Musculoskeletal Deformity - BKA Psychiatric Medical History: Reports: Hx Dementia, Hx Depression Denies: Hx Attention Deficit Hyperactivity Disorder, Hx Bipolar Disorder, Hx Schizophrenia Past Surgical History: Reports: Hx Abdominal Surgery, Hx Cardiac Surgery - defibrillator, Hx Coronary Stent, Hx Internal Defibrillator, Hx Orthopedic Surgery - left BKA, Hx Vascular Surgery - left groin, Other - PEG tube. Denies : Hx Open Heart Surgery - Immunizations Hx Diphtheria, Pertussis, Tetanus Vaccination: No Review of Systems - Review of Systems Constitutional: No symptoms reported EENT: No symptoms reported Cardiovascular: No symptoms reported Respiratory: No symptoms reported Gastrointestinal: No symptoms reported Genitourinary: No symptoms reported Male Genitourinary: No symptoms reported Musculoskeletal: No symptoms reported Skin: No symptoms reported Hematologic/Lymphatic: No symptoms reported Neurological/Psychological: No symptoms reported Physical Exam - Vital signs Interpretation: Normal - General General appearance: Appears well, Alert - HEENT Head: Normocephalic, Atraumatic Eyes: Normal Pupils: PERRL - Respiratory Respiratory status: No respiratory distress Chest status: Nontender Breath sounds: Normal Chest palpation: Normal - Cardiovascular Rhythm: Regular Heart sounds: Normal auscultation Murmur: No - Abdominal Inspection: Normal Distension: No distension Bowel sounds: Normal Tenderness: Nontender Organomegaly: No organomegaly - Genitourinary Notes: Indwelling Catalan catheter - Back Back: Normal, Nontender - Extremities General upper extremity: Normal inspection, Nontender, Normal color, Normal ROM , Normal temperature General lower extremity: Other - Vision has left below the knee amputation.. No : Jeremias's sign - Neurological [place] Coma Scale Eye Opening: Spontaneous [place] Coma Scale Verbal: Oriented Jonathan Coma Scale Motor: Obeys Commands [place] Coma Scale Total: 15 Speech: Dysarthria Cranial nerves: Facial palsy - Psychological Associated symptoms: Normal affect, Normal mood - Skin Skin Temperature: Warm Skin Moisture: Dry Skin Color: Normal Course - Re-evaluation Re-evalutation: 02/17/18 11:20 Patient was extremely elevated sodium level at 174. Likely extremely dry. Urine is concentrated. Chronic elevated cardiac troponin. Will begin hydration at this time and anticipate admit. 02/17/18 12:28 Laboratory 02/17/18 02/17/18 02/17/18 09:57 09:57 09:57 WBC 5.9 RBC 6.20 H Hgb 14.5 Hct 45.7 MCV 74 L MCH 23.3 L MCHC 31.7 L RDW 22.0 H Plt Count 113 L Seg Neutrophils % 70.9 Lymphocytes % 18.8 Monocytes % 5.6 Eosinophils % 4.5 Basophils % 0.2 Absolute Neutrophils 4.2 Absolute Lymphocytes 1.1 Absolute Monocytes 0.3 Absolute Eosinophils 0.3 Absolute Basophils 0.0 Sodium 174.9 H* Potassium 3.9 Chloride 130 H Carbon Dioxide 35 H Anion Gap 10 BUN 67 H Creatinine 1.09 Est GFR ( Amer) > 60 Est GFR (Non-Af Amer) > 60 Glucose 145 H Calcium 10.1 Total Bilirubin 0.4 Direct Bilirubin 0.3 Neonat Total Bilirubin Not Reportable Neonat Direct Bilirubin Not Reportable Neonat Indirect Bili Not Reportable AST 45 ALT 60 Alkaline Phosphatase 104 Troponin I 0.039 Total Protein 9.4 H Albumin 3.8 Urine Color Urine Appearance Urine pH Ur Specific [place] Urine Protein Urine Glucose (UA) Urine Ketones Urine Blood Urine Nitrite Urine Bilirubin Urine Urobilinogen Ur Leukocyte Esterase Urine WBC (Auto) Urine RBC (Auto) Urine Bacteria (Auto) Squamous Epi Cells Auto Urine Mucus (Auto) Urine Ascorbic Acid 02/17/18 10:55 WBC RBC Hgb Hct MCV MCH MCHC RDW Plt Count Seg Neutrophils % Lymphocytes % Monocytes % Eosinophils % Basophils % Absolute Neutrophils Absolute Lymphocytes Absolute Monocytes Absolute Eosinophils Absolute Basophils Sodium Potassium Chloride Carbon Dioxide Anion Gap BUN Creatinine Est GFR ( Amer) Est GFR (Non-Af Amer) Glucose Calcium Total Bilirubin Direct Bilirubin Neonat Total Bilirubin Neonat Direct Bilirubin Neonat Indirect Bili AST ALT Alkaline Phosphatase Troponin I Total Protein Albumin Urine Color YELLOW Urine Appearance CLOUDY Urine pH 8.0 Ur Specific [place] 1.017 Urine Protein 100 H Urine Glucose (UA) 150 H Urine Ketones NEGATIVE Urine Blood NEGATIVE Urine Nitrite NEGATIVE Urine Bilirubin NEGATIVE Urine Urobilinogen NEGATIVE Ur Leukocyte Esterase LARGE H Urine WBC (Auto) >182 Urine RBC (Auto) 22 Urine Bacteria (Auto) TRACE Squamous Epi Cells Auto <1 Urine Mucus (Auto) RARE Urine Ascorbic Acid 40 H - Laboratory Result Diagrams: 02/17/18 09:57 02/17/18 09:57 Laboratory results interpreted by me: 02/17/18 02/17/18 02/17/18 09:57 09:57 10:55 RBC 6.20 H MCV 74 L MCH 23.3 L MCHC 31.7 L RDW 22.0 H Plt Count 113 L Sodium 174.9 H* Chloride 130 H Carbon Dioxide 35 H BUN 67 H Glucose 145 H Total Protein 9.4 H Urine Protein 100 H Urine Glucose (UA) 150 H Ur Leukocyte Esterase LARGE H Urine Ascorbic Acid 40 H - EKG Interpretation by Ga EKG shows normal: Sinus rhythm, Intervals, QRS Complexes, ST-T Waves [place]/QRS: IVCD Voltage: Consistant with LVH Heart block present: 1st Degree Discharge - Discharge Clinical Impression: Acute hypernatremia, Dehydration Urinary tract infection Qualifiers: Urinary tract infection type: catheter-associated UTI Indwelling urinary catheter type: indwelling urethral catheter Encounter type: initial encounter Qualified Code(s): T83.511A - Infection and inflammatory reaction due to indwelling urethral catheter, initial encounter; N39.0 - Urinary tract infection , site not specified; N39.0 - Urinary tract infection, site not specified Condition: Good Disposition: ADMITTED INPATIENT Admitting Provider: Hospitalist - [facility] Admitted: Telemetry Referrals: CHAD HILLIARD MD [Primary Care Provider] - Follow up as needed
--- NOTE | 2018-02-17 09:55 | RADIOLOGY REPORT (SQ) ---
EXAM DESCRIPTION: CHEST SINGLE VIEW COMPLETED DATE/TIME: 02/17/2018 9:30 am REASON FOR STUDY: sob COMPARISON: Chest film 12/08/2017, 09/20/2017, 07/17/2017 EXAM PARAMETERS: NUMBER OF VIEWS: One view. TECHNIQUE: Single frontal radiographic view of the chest acquired. RADIATION DOSE: NA LIMITATIONS: None. FINDINGS: LUNGS AND PLEURA: No opacities, masses or pneumothorax. No pleural effusion. MEDIASTINUM AND HILAR STRUCTURES: No masses. Contour normal. HEART AND VASCULAR STRUCTURES: Stable mild cardiomegaly BONES: No acute findings. HARDWARE: Left-sided dual lead pacemaker unchanged. OTHER: No other significant finding. IMPRESSION: Stable cardiomegaly and left-sided dual lead pacemaker. No acute findings TECHNICAL DOCUMENTATION: JOB ID: [id number] [employer]- All Rights Reserved Reading location - IP/workstation name: [email or web address]
[2018-02-17 10:40] LABS: ABSOLUTE EOSINOPHILS # (AUTO) 0.3 10^3/uL (0.0-0.6); ABSOLUTE LYMPHOCYTES (AUTO) 1.1 10^3/uL (0.5-4.7); ABSOLUTE MONOCYTES (AUTO) 0.3 10^3/uL (0.1-1.4); ABSOLUTE NEUT (AUTO) 4.2 10^3/uL (1.7-8.2); BASOPHILS % (AUTO) 0.2 % (0-2); EOSINOPHILS % (AUTO) 4.5 % (0-6); HEMATOCRIT 45.7 % (37.9-51.0); HEMOGLOBIN 14.5 g/dL (13.5-17.0); LYMPHOCYTES % (AUTO) 18.8 % (13-45); MEAN CORPUSCULAR HEMOGLOBIN 23.3 pg (27.0-33.4); MEAN CORPUSCULAR HGB CONC 31.7 g/dL (32.0-36.0); MEAN CORPUSCULAR VOLUME 74 fl (80-97); MONOCYTES % (AUTO) 5.6 % (3-13); SEGMENTED NEUTROPHILS % (AUTO) 70.9 % (42-78); TOTAL CELLS COUNTED % (AUTO) 100 %; WHITE BLOOD COUNT 5.9 10^3/uL (4.0-10.5)
[2018-02-17 10:55] LABS: ALANINE AMINOTRANSFERASE 60 U/L (21-72); ALBUMIN 3.8 g/dL (3.5-5.0); ALKALINE PHOSPHATASE 104 U/L (38-126); ANION GAP 10 (5-19); ASPARTATE AMINO TRANSFERASE 45 U/L (17-59); BILIRUBIN,DIRECT 0.3 mg/dL (0.0-0.4); BILIRUBIN,TOTAL 0.4 mg/dL (0.2-1.3); BLOOD UREA NITROGEN 67 mg/dL (7-20); CALCIUM 10.1 mg/dL (8.4-10.2); CARBON DIOXIDE 35 mmol/L (22-30); CHLORIDE 130 mmol/L (98-107); GLUCOSE 145 mg/dL (75-110); POTASSIUM 3.9 mmol/L (3.6-5.0); TOTAL PROTEIN 9.4 g/dL (6.3-8.2)
[2018-02-17 11:05] LABS: SODIUM 174.9 mmol/L (137-145)
[2018-02-17 11:07] LABS: PLATELET COUNT 113 10^3/uL (150-450)
[2018-02-17] MEDS ORDERED: NORMAL SALINE 1000 ML 1,000 ML IV PRN (11:08)
--- NOTE | 2018-02-17 11:37 | EKG REPORT ---
SEVERITY:- ABNORMAL ECG - SINUS RHYTHM FIRST DEGREE AV BLOCK NONSPECIFIC INTRAVENTRICULAR CONDUCTION DELAY PROBABLE LVH WITH SECONDARY REPOL ABNRM INFERIOR INFARCT, NEW SINCE 12/04/17 : Confirmed by: Tika Dent MD 17-Feb-2018 11:36:38
[2018-02-17 12:05] LABS: APPEARANCE,URINE CLOUDY; BILIRUBIN,URINE NEGATIVE (NEGATIVE); COLOR,URINE YELLOW; GLUCOSE, URINE 150 mg/dL (NEGATIVE); KETONES,URINE NEGATIVE (NEGATIVE); LEUKOCYTE ESTERASE,URINE LARGE (NEGATIVE); NITRITE,URINE NEGATIVE (NEGATIVE); PROTEIN,URINE 100 mg/dL (NEGATIVE); URINE SPECIFIC GRAVITY 1.017; UROBILINOGEN,URINE NEGATIVE mg/dL (<2.0)
[2018-02-17] MEDS ORDERED: CEFTRIAXONE 1 GM/D5W RTU 1 GM/50 ML RTUPB IV ONE (12:21)
[2018-02-17] MEDS ORDERED: DEXTROSE 40% GEL 15 GM TUBE PO PRN ×2 (13:33)
[2018-02-17] MEDS ORDERED: IPRATROPIUM/ALBUTEROL 0.5-2.5 MG/3 ML AMPUL NEB PRN (13:33)
[2018-02-17] MEDS ORDERED: ONDANSETRON HCL INJ/PF 4 MG/2 ML SDV IV PRN (13:33)
[2018-02-17] MEDS ORDERED: GLUCAGON,HUMAN RECOMB 1 MG INJ SUBCUT PRN (13:33)
[2018-02-17] MEDS ORDERED: DEXTROSE 50%-WATER 25 GM/50 ML DISP.SYRIN IV PRN ×2 (13:33)
[2018-02-17] MEDS ORDERED: ENOXAPARIN SODIUM INJ 40 MG/0.4 ML DISP.SYRIN SUBCUT ONE (15:00)
[2018-02-17] MEDS ORDERED: SENNOSIDES/DOCUSATE 8.6-50 MG 1 EACH TABLET PEG PRN (15:29)
--- NOTE | 2018-02-17 15:29 | PDOC H&P ---
History of Present Illness Admission Date/PCP: 02/17/18 12:48 CHAD HILLIARD Patient complains of: Change in mental status History of Present Illness: SEUN TOTH is a 77 year old male This patient was brought from the correction to the emergency room for evaluation due to the change in his mental status. 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 History could not be obtained from him and information is obtained from records. He was found to be pretty dry with hypernatremia as well as a urinary tract infection and patient is been admitted for further evaluation and management Past Medical History Cardiac Medical History: Reports: Congestive Heart Failure, Coronary Artery Disease - stent x 1, Myocardial Infarction - 2003, Hyperlipidema, Hypertension, Peripheral Vascular Disease Pulmonary Medical History: Reports: Asthma - as child, Chronic Obstructive Pulmonary Disease (COPD) Denies: Bronchitis, Pneumonia, Tuberculosis Neurological Medical History: Denies: Seizures Endocrine Medical History: Reports: Diabetes Mellitus Type 2 GI Medical History: Reports: Gastroesophageal Reflux Disease Denies: Hiatal Hernia Musculoskeltal Medical History: Reports: Arthritis Psychiatric Medical History: Reports: Dementia, Depression Denies: Attention Deficit Hyperactivity Disorder, Bipolar Disorder Hematology: Reports: Anemia Denies: Sickle Cell Disease Past Surgical History Past Surgical History: Reports: Coronary Stent, Internal Defibrillator, Orthopedic Surgery - left BKA, Vascular Surgery - left groin, Other - PEG tube Social History Information Source: [facility] Records Lives with: Assisted Smoking Status: Smoker,Current Status Unk Frequency of Alcohol Use: None Hx Recreational Drug Use: No Drugs: None Hx Prescription Drug Abuse: No - Advance Directive Resuscitation Status: Full Code - As per correction records Family History Family History: Other - Unobtainable since patient is nonverbal and has dementia. Parental Family History Reviewed: No Children Family History Reviewed: Unknown Sibling(s) Family History Reviewed.: Unknown Medication/Allergy Home Medications: Acetaminophen [Tylenol 325 mg Tablet] 650 mg PEG Q6HP PRN 09/18/17 Atorvastatin Calcium [Lipitor 10 mg Tablet] 10 mg PEG QHS 09/18/17 Carvedilol [Coreg 3.125 mg Tablet] 3.125 mg PEG Q12 09/18/17 Finasteride [Proscar 5 mg Tablet] 5 mg PEG DAILY 09/18/17 Folic Acid [Folvite 1 mg Tablet] 1 mg PEG DAILY 09/18/17 Glucagon,Human Recombinant [Glucagon Emergency Kit] 1 mg SQ PRN PRN 09/18/17 Insulin Lispro [Humalog Insulin (Lispro) 100 unit/mL] 0 units SQ .SLIDING SCALE 09/18/17 Lansoprazole [Prevacid 30 mg Odt Tablet] 30 mg PEG BID 09/18/17 Latanoprost [Xalatan 0.005% Oph Soln 2.5 ml] 1 drop OU QHS 09/18/17 Sennosides/Docusate 8.6-50 mg [Senna Plus Tablet] 1 tab PEG DAILYP PRN 09/18/17 Ascorbic Acid [Vitamin C] 500 mg PEG TID 12/08/17 Multivitamins W-Iron [Flintstones Chewable Multivit W/Fe Tab] 2 tab PEG DAILY Lactobacillus Acidophilus [Bacid 250 mg Tablet] 500 mg PEG BID tab 12/13/17 Insulin Glargine,Hum.rec.anlog [Lantus Insulin 100 Unit/1 ml 10 ml] 15 unit SUBCUT QHS 02/17/18 Allergies/Adverse Reactions: No Known Allergies Allergy (Verified 02/22/17 11:56) Review of Systems ROS unobtainable: Due to mental status Physical Exam Vital Signs: Temp Pulse Resp BP Pulse Ox 98.1 F 19 136/92 H 96 02/17/18 09:00 02/17/18 13:01 02/17/18 13:01 02/17/18 11:01 Intake & Output 02/16/18 02/17/18 02/18/18 06:59 06:59 06:59 Intake Total 1000 Balance 1000 General appearance: PRESENT: no acute distress, well-developed Eye exam: PRESENT: EOMI Mouth exam: PRESENT: dry mucosa Teeth exam: PRESENT: poor dentation Respiratory exam: PRESENT: clear to auscultation joaquin. ABSENT: rales, rhonchi, wheezes Cardiovascular exam: PRESENT: RRR, +S1, +S2 GI/Abdominal exam: PRESENT: normal bowel sounds, soft. ABSENT: distended, guarding, mass, organolmegaly, rebound, tenderness Rectal exam: PRESENT: other - PEG tube intact Extremities exam: PRESENT: other - Left below knee amputation Neurological exam: PRESENT: alert, awake, aphasic. ABSENT: oriented to person, oriented to place, oriented to time, oriented to situation Psychiatric exam: PRESENT: appropriate affect Results Impressions: Chest X-Ray 02/17/18 09:09 IMPRESSION: Stable cardiomegaly and left-sided dual lead pacemaker. No acute findings Assessment & Plan - Diagnosis (1) Acute hypernatremia Is this a current diagnosis for this admission?: Yes Plan: Hyperchloremic, likely due to dehydration and intravascular volume depletion. Patient will be started on hypotonic IV fluids and will monitor BMP with further adjustments as needed (3) UTI (urinary tract infection) Qualifiers: Urinary tract infection type: catheter-associated UTI Indwelling urinary catheter type: indwelling urethral catheter Encounter type: initial encounter Qualified Code(s): T83.511A - Infection and inflammatory reaction due to indwelling urethral catheter, initial encounter; N39.0 - Urinary tract infection , site not specified; N39.0 - Urinary tract infection, site not specified Is this a current diagnosis for this admission?: Yes Plan: Patient will be placed on empiric antibiotic and adjust as by urine culture result (4) COLETTE (acute kidney injury) Is this a current diagnosis for this admission?: Yes Plan: This is a prerenal azotemia secondary to severe dehydration. I expect this to correct with adequate hydration (5) Full code status Is this a current diagnosis for this admission?: Yes - Time Time Spent: 30 to 50 Minutes Medications reviewed and adjusted accordingly: Yes Anticipated discharge: SNF Within: within 72 hours - Inpatient Certification Based on my medical assessment, after consideration of the patient's comorbidities, presenting symptoms, or acuity I expect that the services needed warrant INPATIENT care.: Yes Medical Necessity: Need For IV Fluids, Need for IV Antibiotics, Risk of Complication if Not Cared For in Hospital
[2018-02-17] MEDS ORDERED: CEFTRIAXONE INJ 1000 MG VIAL IV ONE (16:30)
[2018-02-17] MEDS: ASCORBIC ACID 500 MG TABLET PEG SCH (17:32)
[2018-02-17] MEDS: LANSOPRAZOLE 30 MG TAB.RAP.DR PEG SCH (17:32)
[2018-02-17] MEDS: LACTOBACILLUS ACIDOPHILUS 250 MG TAB PEG SCH (17:32)
[2018-02-17] MEDS: CEFTRIAXONE SODIUM 1,000 MG in NORMAL SALINE 50 ML IV SCH (17:33)
[2018-02-17] MEDS: DEXTROSE 5%-1/4 NORMAL SALINE 1,000 ML IV PRN (17:38)
[2018-02-17] MEDS ORDERED: (PENDING PHARMACY ID) (Ascorbic Acid [Vitamin C] 500 MG) PEG SCH (18:00)
[2018-02-17] MEDS ORDERED: INSULIN GLARGINE,HUM.REC.ANLOG 1,000 UNIT/10 ML UNIT SUBCUT SCH (22:00)
[2018-02-17] MEDS: CARVEDILOL 3.125 MG TABLET PEG SCH (23:41)
[2018-02-17] MEDS: ATORVASTATIN CALCIUM 10 MG TABLET PEG SCH (23:42)
[2018-02-17] MEDS: LATANOPROST 0.005% OPH SOLN 2.5 ML OU SCH (23:45)
[2018-02-18] MEDS ORDERED: CEFTRIAXONE 1 GM/D5W RTU 1 GM/50 ML RTUPB IV SCH (10:00)
[2018-02-18] MEDS ORDERED: DEXTROSE 40% GEL 15 GM TUBE X 2 PO PRN (10:05)
[2018-02-18] MEDS ORDERED: DEXTROSE 40% GEL 15 GM TUBE PO PRN (10:05)
[2018-02-18] MEDS ORDERED: DEXTROSE 50%-WATER SYRINGE 12.5 GM/25 ML DOSE IV PRN (10:05)
[2018-02-18] MEDS ORDERED: GLUCAGON,HUMAN RECOMB 1 MG INJ IM PRN (10:05)
[2018-02-18] MEDS ORDERED: DEXTROSE 50%-WATER SYRINGE 25 GM/50 ML DOSE IV PRN (10:05)
[2018-02-18] MEDS: CARVEDILOL 3.125 MG TABLET PEG SCH ×2 (10:57→22:15)
[2018-02-18] MEDS: ASCORBIC ACID 500 MG TABLET PEG SCH ×3 (10:57→17:41)
[2018-02-18] MEDS: FOLIC ACID 1 MG TABLET PEG SCH (10:57)
[2018-02-18] MEDS: ENOXAPARIN SODIUM INJ 40 MG/0.4 ML DISP.SYRIN SUBCUT SCH (10:58)
[2018-02-18] MEDS: LACTOBACILLUS ACIDOPHILUS 250 MG TAB PEG SCH ×2 (10:58→17:41)
[2018-02-18] MEDS: LANSOPRAZOLE 30 MG TAB.RAP.DR PEG SCH ×2 (10:58→18:42)
[2018-02-18] MEDS: MULTIVITAMINS W-IRON TABLET, CHEWABLE PEG SCH (10:59)
[2018-02-18 12:22] LABS: ABSOLUTE EOSINOPHILS # (AUTO) 0.2 10^3/uL (0.0-0.6); ABSOLUTE LYMPHOCYTES (AUTO) 1.3 10^3/uL (0.5-4.7); ABSOLUTE MONOCYTES (AUTO) 0.3 10^3/uL (0.1-1.4); BASOPHILS % (AUTO) 0.3 % (0-2); EOSINOPHILS % (AUTO) 3.6 % (0-6); HEMATOCRIT 39.8 % (37.9-51.0); LYMPHOCYTES % (AUTO) 27.4 % (13-45); MEAN CORPUSCULAR HEMOGLOBIN 22.6 pg (27.0-33.4); MEAN CORPUSCULAR HGB CONC 30.6 g/dL (32.0-36.0); MEAN CORPUSCULAR VOLUME 74 fl (80-97); MONOCYTES % (AUTO) 6.4 % (3-13); SEGMENTED NEUTROPHILS % (AUTO) 62.3 % (42-78); TOTAL CELLS COUNTED % (AUTO) 100 %; WHITE BLOOD COUNT 4.9 10^3/uL (4.0-10.5)
[2018-02-18 12:27] LABS: ANION GAP 12 (5-19); BLOOD UREA NITROGEN 53 mg/dL (7-20); CALCIUM 9.3 mg/dL (8.4-10.2); CARBON DIOXIDE 26 mmol/L (22-30); CHLORIDE 132 mmol/L (98-107); GLUCOSE 216 mg/dL (75-110)
[2018-02-18 12:49] LABS: SODIUM 169.5 mmol/L (137-145)
[2018-02-18 12:52] LABS: HEMOGLOBIN 12.2 g/dL (13.5-17.0)
[2018-02-18 12:53] LABS: ANISOCYTOSIS 3+; HYPOCHROMASIA 1+; OVALOCYTES 1+; PLATELET COMMENT DECREASED; PLATELET ESTIMATE 77 10^3/uL (150-450); PLATELET LARGE PRESENT; POIKILOCYTOSIS 1+; TEAR DROP CELLS SLIGHT
[2018-02-18] MEDS: INSULIN LISPRO 100 UNIT/ML 3 ML VIAL SUBCUT PRN ×2 (13:34→18:06)
[2018-02-18] MEDS: DEXTROSE 5%-1/4 NORMAL SALINE 1,000 ML IV PRN (13:34)
[2018-02-18] MEDS ORDERED: CEFTRIAXONE SODIUM 1,000 MG in DEXTROSE 5%-WATER 50 ML IV SCH (16:00)
[2018-02-18] MEDS: CEFTRIAXONE SODIUM 1,000 MG in NORMAL SALINE 50 ML IV SCH (17:41)
--- NOTE | 2018-02-18 18:46 | PDOC PROGRESS REPORT ---
Subjective Progress Note for:: 02/18/18 Subjective:: Patient appears to be grossly unchanged. Is unable to provide any information due to his aphasia from his CVA Reason For Visit: HYPERNATREMIA,UTI,DEHYDRATION Physical Exam Vital Signs: Temp Pulse Resp BP Pulse Ox 98.5 F 88 16 145/73 H 97 02/18/18 15:00 02/18/18 15:00 02/18/18 15:00 02/18/18 15:00 02/18/18 15:00 Intake & Output 02/17/18 02/18/18 02/19/18 06:59 06:59 06:59 Intake Total 2100 450 Output Total 550 Balance 1550 450 Weight 79.3 kg General appearance: PRESENT: no acute distress, well-developed Head exam: PRESENT: atraumatic Eye exam: ABSENT: scleral icterus Mouth exam: PRESENT: dry mucosa Teeth exam: PRESENT: poor dentation Respiratory exam: PRESENT: clear to auscultation joaquin. ABSENT: rales, rhonchi, wheezes Cardiovascular exam: PRESENT: RRR, +S1, +S2 GI/Abdominal exam: PRESENT: normal bowel sounds, soft, other - PEG tube. ABSENT : distended, guarding, mass, organolmegaly, rebound, tenderness Rectal exam: PRESENT: deferred Extremities exam: PRESENT: other - Left below knee amputation Musculoskeletal exam: ABSENT: ambulatory, normal inspection Neurological exam: PRESENT: alert, motor sensory deficit, aphasic, other - Right facial droop. ABSENT: oriented to person, oriented to place, oriented to time, oriented to situation Results Laboratory Results: 02/18/18 11:46 02/18/18 11:46 02/18/18 02/18/18 11:46 11:46 WBC 4.9 RBC 5.40 Hgb 12.2 L D Hct 39.8 MCV 74 L MCH 22.6 L MCHC 30.6 L RDW 22.0 H Plt Count Seg Neutrophils % 62.3 Lymphocytes % 27.4 Monocytes % 6.4 Eosinophils % 3.6 Basophils % 0.3 Absolute Neutrophils 3.0 Absolute Lymphocytes 1.3 Absolute Monocytes 0.3 Absolute Eosinophils 0.2 Absolute Basophils 0.0 Sodium 169.5 H* Potassium 4.0 Chloride 132 H Carbon Dioxide 26 Anion Gap 12 BUN 53 H Creatinine 0.96 Est GFR ( Amer) > 60 Est GFR (Non-Af Amer) > 60 Glucose 216 H Calcium 9.3 Impressions: Chest X-Ray 02/17/18 09:09 IMPRESSION: Stable cardiomegaly and left-sided dual lead pacemaker. No acute findings Assessment & Plan - Diagnosis (1) Acute hypernatremia Is this a current diagnosis for this admission?: Yes Plan: Slightly improved (3) UTI (urinary tract infection) Qualifiers: Urinary tract infection type: catheter-associated UTI Indwelling urinary catheter type: indwelling urethral catheter Encounter type: initial encounter Qualified Code(s): T83.511A - Infection and inflammatory reaction due to indwelling urethral catheter, initial encounter; N39.0 - Urinary tract infection , site not specified; N39.0 - Urinary tract infection, site not specified Is this a current diagnosis for this admission?: Yes Plan: Continue empiric antibiotic and follow-up on cultures (4) COLETTE (acute kidney injury) Is this a current diagnosis for this admission?: Yes Plan: Continue with aggressive fluids (5) Full code status Is this a current diagnosis for this admission?: Yes - Time Time Spent with patient: 15-24 minutes Medications reviewed and adjusted accordingly: Yes Anticipated discharge: SNF Within: within 72 hours - Inpatient Certification Based on my medical assessment, after consideration of the patient's comorbidities, presenting symptoms, or acuity I expect that the services needed warrant INPATIENT care.: Yes Medical Necessity: Need For IV Fluids, Need for IV Antibiotics, Risk of Complication if Not Cared For in Hospital, Risk of Diagnosis Which Will Require Inpatient Eval/Care/Monitoring
[2018-02-18] MEDS: ATORVASTATIN CALCIUM 10 MG TABLET PEG SCH (21:48)
[2018-02-18] MEDS: INSULIN GLARGINE,HUM.REC.ANLOG 300 UNIT/3 ML INSULN.PEN SUBCUT SCH (22:00)
[2018-02-18] MEDS: LATANOPROST 0.005% OPH SOLN 2.5 ML OU SCH (22:15)
[2018-02-19] MEDS: DEXTROSE 5%-1/4 NORMAL SALINE 1,000 ML IV PRN ×2 (08:13→16:55)
[2018-02-19] MEDS: LACTOBACILLUS ACIDOPHILUS 250 MG TAB PEG SCH ×2 (12:09→17:13)
[2018-02-19] MEDS: ASCORBIC ACID 500 MG TABLET PEG SCH ×3 (12:10→17:14)
[2018-02-19] MEDS: LANSOPRAZOLE 30 MG TAB.RAP.DR PEG SCH ×2 (12:10→17:14)
[2018-02-19] MEDS: CARVEDILOL 3.125 MG TABLET PEG SCH ×2 (12:10→22:25)
[2018-02-19] MEDS: MULTIVITAMINS W-IRON TABLET, CHEWABLE PEG SCH (12:10)
[2018-02-19] MEDS: FOLIC ACID 1 MG TABLET PEG SCH (12:10)
--- NOTE | 2018-02-19 14:15 | PDOC PROGRESS REPORT ---
Subjective Progress Note for:: 02/19/18 Subjective:: Patient appears to be grossly unchanged. Is unable to provide any information due to his aphasia from his CVA labs were not drawn this morning as patient is uncooperative. Reason For Visit: HYPERNATREMIA,UTI,DEHYDRATION Physical Exam Vital Signs: Temp Pulse Resp BP Pulse Ox 98.6 F 79 16 142/65 H 97 02/19/18 11:37 02/19/18 11:37 02/19/18 11:37 02/19/18 11:37 02/19/18 11:37 Intake & Output 02/18/18 02/19/18 02/20/18 06:59 06:59 06:59 Intake Total 2100 1500 Output Total 550 750 Balance 1550 750 Weight 79.3 kg 82.6 kg General appearance: PRESENT: no acute distress, other Head exam: PRESENT: atraumatic, normocephalic Eye exam: PRESENT: conjunctiva pink, EOMI, PERRLA. ABSENT: scleral icterus Ear exam: PRESENT: normal external ear exam Mouth exam: PRESENT: dry mucosa, tongue midline, other - Right facial droop Neck exam: ABSENT: carotid bruit, JVD, lymphadenopathy, thyromegaly Respiratory exam: PRESENT: clear to auscultation joaquin. ABSENT: rales, rhonchi, wheezes Cardiovascular exam: PRESENT: RRR. ABSENT: diastolic murmur, rubs, systolic murmur Pulses: PRESENT: normal dorsalis pedis pul Vascular exam: PRESENT: normal capillary refill GI/Abdominal exam: PRESENT: normal bowel sounds, soft, other - PEG tube. ABSENT : distended, guarding, mass, organolmegaly, rebound, tenderness Rectal exam: PRESENT: deferred Extremities exam: PRESENT: other - Left above-knee amputation. ABSENT: calf tenderness, clubbing, pedal edema Neurological exam: PRESENT: alert, awake, oriented to place, other - Left-sided upper extremity weakness. ABSENT: motor sensory deficit Skin exam: PRESENT: dry, intact, warm. ABSENT: cyanosis, rash Results Laboratory Results: 02/18/18 11:46 Impressions: Chest X-Ray 02/17/18 09:09 IMPRESSION: Stable cardiomegaly and left-sided dual lead pacemaker. No acute findings Assessment & Plan - Diagnosis (1) Acute hypernatremia Is this a current diagnosis for this admission?: Yes Plan: Continue IV fluids and adjust as needed (2) Dehydration Is this a current diagnosis for this admission?: Yes (3) UTI (urinary tract infection) Qualifiers: Urinary tract infection type: catheter-associated UTI Indwelling urinary catheter type: indwelling urethral catheter Encounter type: initial encounter Qualified Code(s): T83.511A - Infection and inflammatory reaction due to indwelling urethral catheter, initial encounter; N39.0 - Urinary tract infection , site not specified; N39.0 - Urinary tract infection, site not specified Is this a current diagnosis for this admission?: Yes Plan: Secondary to Proteus mirabilis and gram-negative rods. We will continue with ceftriaxone for now (4) COLETTE (acute kidney injury) Is this a current diagnosis for this admission?: Yes (5) Full code status Is this a current diagnosis for this admission?: Yes - Time Time Spent with patient: 15-24 minutes Medications reviewed and adjusted accordingly: Yes Anticipated discharge: SNF Within: within 72 hours - Inpatient Certification Based on my medical assessment, after consideration of the patient's comorbidities, presenting symptoms, or acuity I expect that the services needed warrant INPATIENT care.: Yes Medical Necessity: Need For IV Fluids, Need for IV Antibiotics
[2018-02-19] MEDS: ENOXAPARIN SODIUM INJ 40 MG/0.4 ML DISP.SYRIN SUBCUT SCH (14:19)
[2018-02-19 14:53] LABS: ANION GAP 11 (5-19); BLOOD UREA NITROGEN 44 mg/dL (7-20); CALCIUM 9.3 mg/dL (8.4-10.2); CARBON DIOXIDE 26 mmol/L (22-30); CHLORIDE 129 mmol/L (98-107); GLUCOSE 350 mg/dL (75-110); POTASSIUM 3.7 mmol/L (3.6-5.0); SODIUM 166.3 mmol/L (137-145)
[2018-02-19] MEDS: INSULIN LISPRO 100 UNIT/ML 3 ML VIAL SUBCUT PRN ×3 (15:06→23:48)
[2018-02-19] MEDS: ACETAMINOPHEN 325 MG TABLET PEG PRN (17:13)
[2018-02-19] MEDS: CEFTRIAXONE SODIUM 1,000 MG in NORMAL SALINE 50 ML IV SCH (17:15)
[2018-02-19] MEDS: ATORVASTATIN CALCIUM 10 MG TABLET PEG SCH (22:25)
[2018-02-19] MEDS: LATANOPROST 0.005% OPH SOLN 2.5 ML OU SCH (22:25)
[2018-02-19] MEDS: INSULIN GLARGINE,HUM.REC.ANLOG 300 UNIT/3 ML INSULN.PEN SUBCUT SCH (22:26)
[2018-02-20] MEDS: DEXTROSE 5%-1/4 NORMAL SALINE 1,000 ML IV PRN ×4 (01:10→17:56)
[2018-02-20 05:02] LABS: ANION GAP 11 (5-19); BLOOD UREA NITROGEN 36 mg/dL (7-20); CALCIUM 8.9 mg/dL (8.4-10.2); CARBON DIOXIDE 24 mmol/L (22-30); CHLORIDE 128 mmol/L (98-107); GLUCOSE 222 mg/dL (75-110); POTASSIUM 3.9 mmol/L (3.6-5.0)
[2018-02-20] MEDS: FOLIC ACID 1 MG TABLET PEG SCH (09:56)
[2018-02-20] MEDS: CARVEDILOL 3.125 MG TABLET PEG SCH ×2 (09:56→22:24)
[2018-02-20] MEDS: MULTIVITAMINS W-IRON TABLET, CHEWABLE PEG SCH (09:56)
[2018-02-20] MEDS: LACTOBACILLUS ACIDOPHILUS 250 MG TAB PEG SCH ×2 (09:57→17:36)
[2018-02-20] MEDS: ASCORBIC ACID 500 MG TABLET PEG SCH ×3 (09:57→17:36)
[2018-02-20] MEDS: LANSOPRAZOLE 30 MG TAB.RAP.DR PEG SCH ×2 (09:57→17:36)
[2018-02-20] MEDS: INSULIN LISPRO 100 UNIT/ML 3 ML VIAL SUBCUT PRN ×3 (10:08→22:22)
[2018-02-20] MEDS: ENOXAPARIN SODIUM INJ 40 MG/0.4 ML DISP.SYRIN SUBCUT SCH (10:10)
--- NOTE | 2018-02-20 13:22 | PDOC PROGRESS REPORT ---
Subjective Progress Note for:: 02/20/18 Subjective:: Patient appears to be grossly unchanged. Is unable to provide any information due to his aphasia from his CVA Reason For Visit: HYPERNATREMIA,UTI,DEHYDRATION Physical Exam Vital Signs: Temp Pulse Resp BP Pulse Ox 98.3 F 67 18 102/52 L 100 02/20/18 07:00 02/20/18 07:00 02/20/18 07:00 02/20/18 07:00 02/20/18 07:00 Intake & Output 02/19/18 02/20/18 02/21/18 06:59 06:59 06:59 Intake Total 1500 2597 1000 Output Total 750 1150 Balance 750 1447 1000 Weight 82.6 kg 83.1 kg General appearance: PRESENT: no acute distress, well-developed Head exam: PRESENT: atraumatic Mouth exam: PRESENT: dry mucosa Respiratory exam: PRESENT: clear to auscultation joaquin. ABSENT: rales, rhonchi, wheezes GI/Abdominal exam: PRESENT: other - PEG tube Rectal exam: PRESENT: deferred Extremities exam: PRESENT: other - L BKA Results Laboratory Results: 02/18/18 11:46 02/20/18 04:30 02/19/18 02/20/18 13:44 04:30 Sodium 166.3 H 163.0 H Potassium 3.7 3.9 Chloride 129 H 128 H Carbon Dioxide 26 24 Anion Gap 11 11 BUN 44 H 36 H Creatinine 0.99 0.88 Est GFR ( Amer) > 60 > 60 Est GFR (Non-Af Amer) > 60 > 60 Glucose 350 H 222 H Calcium 9.3 8.9 Impressions: Chest X-Ray 02/17/18 09:09 IMPRESSION: Stable cardiomegaly and left-sided dual lead pacemaker. No acute findings Assessment & Plan - Diagnosis (1) Acute hypernatremia Is this a current diagnosis for this admission?: Yes Plan: Slowly improving. We will increase free water flushes as well as hypotonic intravenous fluid (2) Dehydration Is this a current diagnosis for this admission?: Yes (3) UTI (urinary tract infection) Qualifiers: Urinary tract infection type: catheter-associated UTI Indwelling urinary catheter type: indwelling urethral catheter Encounter type: initial encounter Qualified Code(s): T83.511A - Infection and inflammatory reaction due to indwelling urethral catheter, initial encounter; N39.0 - Urinary tract infection , site not specified; N39.0 - Urinary tract infection, site not specified Is this a current diagnosis for this admission?: Yes Plan: Secondary to Proteus mirabilis and gram-negative rods. We will continue with ceftriaxone (4) COLETTE (acute kidney injury) Is this a current diagnosis for this admission?: Yes Plan: Continue with aggressive fluids (5) Full code status Is this a current diagnosis for this admission?: Yes - Time Time Spent with patient: 15-24 minutes Medications reviewed and adjusted accordingly: Yes Anticipated discharge: SNF Within: within 72 hours - Inpatient Certification Based on my medical assessment, after consideration of the patient's comorbidities, presenting symptoms, or acuity I expect that the services needed warrant INPATIENT care.: Yes Medical Necessity: Need For IV Fluids, Risk of Complication if Not Cared For in Hospital
[2018-02-20] MEDS: CEFTRIAXONE SODIUM 1,000 MG in NORMAL SALINE 50 ML IV SCH (17:36)
[2018-02-20] MEDS: INSULIN GLARGINE,HUM.REC.ANLOG 300 UNIT/3 ML INSULN.PEN SUBCUT SCH (22:23)
[2018-02-20] MEDS: ATORVASTATIN CALCIUM 10 MG TABLET PEG SCH (22:23)
[2018-02-20] MEDS: LATANOPROST 0.005% OPH SOLN 2.5 ML OU SCH ×2 (22:27→22:33)
[2018-02-21] MEDS: DEXTROSE 5%-1/4 NORMAL SALINE 1,000 ML IV PRN ×3 (01:12→15:04)
[2018-02-21] MEDS: INSULIN LISPRO 100 UNIT/ML 3 ML VIAL SUBCUT PRN ×4 (07:44→23:13)
[2018-02-21 08:13] LABS: ANION GAP 7 (5-19); BLOOD UREA NITROGEN 24 mg/dL (7-20); CALCIUM 8.7 mg/dL (8.4-10.2); CARBON DIOXIDE 26 mmol/L (22-30); CHLORIDE 118 mmol/L (98-107); GLUCOSE 292 mg/dL (75-110); POTASSIUM 3.7 mmol/L (3.6-5.0); SODIUM 150.9 mmol/L (137-145)
[2018-02-21] MEDS: ENOXAPARIN SODIUM INJ 40 MG/0.4 ML DISP.SYRIN SUBCUT SCH (10:28)
[2018-02-21] MEDS: CARVEDILOL 3.125 MG TABLET PEG SCH ×2 (10:35→22:53)
[2018-02-21] MEDS: LANSOPRAZOLE 30 MG TAB.RAP.DR PEG SCH ×2 (10:36→18:05)
[2018-02-21] MEDS: LACTOBACILLUS ACIDOPHILUS 250 MG TAB PEG SCH ×2 (10:38→18:05)
[2018-02-21] MEDS: ASCORBIC ACID 500 MG TABLET PEG SCH ×3 (10:39→18:05)
[2018-02-21] MEDS: ACETAMINOPHEN 325 MG TABLET PEG PRN (10:39)
[2018-02-21] MEDS: MULTIVITAMINS W-IRON TABLET, CHEWABLE PEG SCH (10:40)
[2018-02-21] MEDS: FOLIC ACID 1 MG TABLET PEG SCH (10:41)
--- NOTE | 2018-02-21 15:37 | PDOC PROGRESS REPORT ---
Subjective Progress Note for:: 02/21/18 Subjective:: Patient appears to be grossly unchanged. Is unable to provide any information due to his aphasia from his CVA Reason For Visit: HYPERNATREMIA,UTI,DEHYDRATION Physical Exam Vital Signs: Temp Pulse Resp BP Pulse Ox 98.6 F 79 18 121/63 97 02/21/18 11:36 02/21/18 11:36 02/21/18 11:36 02/21/18 11:36 02/21/18 11:36 Intake & Output 02/20/18 02/21/18 02/22/18 06:59 06:59 06:59 Intake Total 2597 4444 2000 Output Total 1150 1400 475 Balance 1447 3044 1525 Weight 83.1 kg 86.3 kg General appearance: PRESENT: no acute distress, well-developed, well-nourished Head exam: PRESENT: atraumatic, normocephalic Eye exam: PRESENT: conjunctiva pink, EOMI, PERRLA. ABSENT: scleral icterus Ear exam: PRESENT: normal external ear exam Mouth exam: PRESENT: moist, tongue midline Neck exam: ABSENT: carotid bruit, JVD, lymphadenopathy, thyromegaly Respiratory exam: PRESENT: decreased breath sounds, unlabored. ABSENT: rales, rhonchi, wheezes Cardiovascular exam: PRESENT: RRR, +S1, +S2. ABSENT: diastolic murmur, rubs, systolic murmur Pulses: PRESENT: normal dorsalis pedis pul Vascular exam: PRESENT: normal capillary refill GI/Abdominal exam: PRESENT: normal bowel sounds, soft, other - PEG tube. ABSENT : distended, guarding, mass, organolmegaly, rebound, tenderness Rectal exam: PRESENT: deferred Extremities exam: PRESENT: full ROM, other - L BKA. ABSENT: calf tenderness, clubbing, pedal edema Neurological exam: PRESENT: altered, motor sensory deficit - L side, aphasic, other - R facial droop Psychiatric exam: PRESENT: other Skin exam: PRESENT: dry, warm. ABSENT: cyanosis, rash Results Laboratory Results: 02/18/18 11:46 02/21/18 07:41 02/21/18 07:41 Sodium 150.9 H Potassium 3.7 Chloride 118 H Carbon Dioxide 26 Anion Gap 7 BUN 24 H Creatinine 0.78 Est GFR ( Amer) > 60 Est GFR (Non-Af Amer) > 60 Glucose 292 H Calcium 8.7 Impressions: Chest X-Ray 02/17/18 09:09 IMPRESSION: Stable cardiomegaly and left-sided dual lead pacemaker. No acute findings Assessment & Plan - Diagnosis (1) Acute hypernatremia Is this a current diagnosis for this admission?: Yes (2) Dehydration Is this a current diagnosis for this admission?: Yes (3) UTI (urinary tract infection) Qualifiers: Urinary tract infection type: catheter-associated UTI Indwelling urinary catheter type: indwelling urethral catheter Encounter type: initial encounter Qualified Code(s): T83.511A - Infection and inflammatory reaction due to indwelling urethral catheter, initial encounter; N39.0 - Urinary tract infection , site not specified; N39.0 - Urinary tract infection, site not specified Is this a current diagnosis for this admission?: Yes (4) COLETTE (acute kidney injury) Is this a current diagnosis for this admission?: Yes Plan: Azotemia is resolving (5) Full code status Is this a current diagnosis for this admission?: Yes - Time Time Spent with patient: 15-24 minutes Medications reviewed and adjusted accordingly: Yes Anticipated discharge: SNF Within: within 72 hours - Inpatient Certification Based on my medical assessment, after consideration of the patient's comorbidities, presenting symptoms, or acuity I expect that the services needed warrant INPATIENT care.: Yes Medical Necessity: Need For IV Fluids, Need for IV Antibiotics - Plan Summary Plan Summary: Urine culture is yielding Proteus mirabilis as well as Alicagenes which was sensitive to ceftriaxone. Will continue with the same antibiotics Hyponatremia is improving with sodium down to 150 today. We will continue with water flushes and slow down IV fluids
[2018-02-21] MEDS ORDERED: FUROSEMIDE INJ/PF 40 MG/4 ML SDV IV ONE (16:00)
[2018-02-21] MEDS: CEFTRIAXONE SODIUM 1,000 MG in NORMAL SALINE 50 ML IV SCH (17:59)
[2018-02-21] MEDS: ATORVASTATIN CALCIUM 10 MG TABLET PEG SCH (22:53)
[2018-02-21] MEDS: LATANOPROST 0.005% OPH SOLN 2.5 ML OU SCH (23:14)
[2018-02-21] MEDS: INSULIN GLARGINE,HUM.REC.ANLOG 300 UNIT/3 ML INSULN.PEN SUBCUT SCH (23:14)
[2018-02-22] MEDS: DEXTROSE 5%-1/4 NORMAL SALINE 1,000 ML IV PRN ×2 (06:15→14:55)
[2018-02-22] MEDS: INSULIN LISPRO 100 UNIT/ML 3 ML VIAL SUBCUT PRN ×3 (06:48→20:13)
[2018-02-22] MEDS: CARVEDILOL 3.125 MG TABLET PEG SCH ×2 (10:42→23:09)
[2018-02-22] MEDS: LANSOPRAZOLE 30 MG TAB.RAP.DR PEG SCH ×2 (10:42→17:42)
[2018-02-22] MEDS: ASCORBIC ACID 500 MG TABLET PEG SCH ×3 (10:42→17:42)
[2018-02-22] MEDS: FOLIC ACID 1 MG TABLET PEG SCH (10:42)
[2018-02-22] MEDS: LACTOBACILLUS ACIDOPHILUS 250 MG TAB PEG SCH ×2 (10:42→17:42)
[2018-02-22] MEDS: ACETAMINOPHEN 325 MG TABLET PEG PRN ×2 (10:43→17:42)
[2018-02-22] MEDS: MULTIVITAMINS W-IRON TABLET, CHEWABLE PEG SCH (10:43)
[2018-02-22] MEDS: ENOXAPARIN SODIUM INJ 40 MG/0.4 ML DISP.SYRIN SUBCUT SCH (10:43)
[2018-02-22] MEDS: CEFTRIAXONE SODIUM 1,000 MG in NORMAL SALINE 50 ML IV SCH (17:42)
--- NOTE | 2018-02-22 20:29 | PDOC PROGRESS REPORT ---
Subjective Progress Note for:: 02/22/18 Subjective:: Patient appears to be grossly unchanged. Is unable to provide any information due to his aphasia from his CVA Reason For Visit: HYPERNATREMIA,UTI,DEHYDRATION Physical Exam Vital Signs: Temp Pulse Resp BP Pulse Ox 98.5 F 67 16 123/63 95 02/22/18 20:00 02/22/18 20:00 02/22/18 20:00 02/22/18 20:00 02/22/18 20:00 Intake & Output 02/21/18 02/22/18 02/23/18 06:59 06:59 06:59 Intake Total 4444 5403 1000 Output Total 1400 2950 825 Balance 3044 2453 175 Weight 86.3 kg 88.3 kg 91.9 kg General appearance: PRESENT: no acute distress, well-developed Head exam: PRESENT: atraumatic, normocephalic Eye exam: PRESENT: conjunctiva pink, PERRLA. ABSENT: scleral icterus Ear exam: PRESENT: normal external ear exam Mouth exam: PRESENT: dry mucosa Neck exam: ABSENT: carotid bruit, JVD, lymphadenopathy, thyromegaly Respiratory exam: PRESENT: rhonchi. ABSENT: rales, wheezes Cardiovascular exam: PRESENT: RRR, +S1, +S2. ABSENT: diastolic murmur, rubs, systolic murmur Pulses: PRESENT: normal dorsalis pedis pul Vascular exam: PRESENT: normal capillary refill GI/Abdominal exam: PRESENT: normal bowel sounds, soft, other - PEG Tube. ABSENT : distended, guarding, mass, organolmegaly, rebound, tenderness Rectal exam: PRESENT: deferred Extremities exam: PRESENT: full ROM, pedal edema, other - L BHA. ABSENT: calf tenderness, clubbing Neurological exam: PRESENT: alert, awake, motor sensory deficit - L sided hemiplegia, aphasic, other - Loss of L facial crease R facial droop Psychiatric exam: PRESENT: appropriate affect, normal mood. ABSENT: homicidal ideation, suicidal ideation Skin exam: PRESENT: dry, intact, warm. ABSENT: cyanosis, rash Results Laboratory Results: 02/18/18 11:46 02/21/18 07:41 02/17/18 15:11 Blood Blood Culture - Final NO GROWTH IN 5 DAYS Impressions: Chest X-Ray 02/17/18 09:09 IMPRESSION: Stable cardiomegaly and left-sided dual lead pacemaker. No acute findings Assessment & Plan - Diagnosis (1) Acute hypernatremia Is this a current diagnosis for this admission?: Yes (2) Dehydration Is this a current diagnosis for this admission?: Yes (3) UTI (urinary tract infection) Qualifiers: Urinary tract infection type: catheter-associated UTI Indwelling urinary catheter type: indwelling urethral catheter Encounter type: initial encounter Qualified Code(s): T83.511A - Infection and inflammatory reaction due to indwelling urethral catheter, initial encounter; N39.0 - Urinary tract infection , site not specified; N39.0 - Urinary tract infection, site not specified Is this a current diagnosis for this admission?: Yes (4) COLETTE (acute kidney injury) Is this a current diagnosis for this admission?: Yes (5) Full code status Is this a current diagnosis for this admission?: Yes - Time Time Spent with patient: 15-24 minutes Medications reviewed and adjusted accordingly: Yes Anticipated discharge: SNF Within: within 72 hours - Inpatient Certification Based on my medical assessment, after consideration of the patient's comorbidities, presenting symptoms, or acuity I expect that the services needed warrant INPATIENT care.: Yes Medical Necessity: Need For IV Fluids, Need for IV Antibiotics - Plan Summary Plan Summary: Urine culture is yielding Proteus mirabilis as well as Alicagenes which was sensitive to ceftriaxone. Continue same abx Hypernatremia is improving. We will continue with water flushes and slow down IV fluids due to mild fluid overload Follow up on labs in am
[2018-02-22] MEDS: ATORVASTATIN CALCIUM 10 MG TABLET PEG SCH (23:09)
[2018-02-22] MEDS: LATANOPROST 0.005% OPH SOLN 2.5 ML OU SCH (23:09)
[2018-02-22] MEDS: INSULIN GLARGINE,HUM.REC.ANLOG 300 UNIT/3 ML INSULN.PEN SUBCUT SCH (23:10)
[2018-02-23] MEDS: DEXTROSE 5%-1/4 NORMAL SALINE 1,000 ML IV PRN ×3 (00:51→22:46)
[2018-02-23] MEDS: INSULIN LISPRO 100 UNIT/ML 3 ML VIAL SUBCUT PRN ×4 (01:10→18:50)
[2018-02-23 08:18] LABS: ABSOLUTE EOSINOPHILS # (AUTO) 0.1 10^3/uL (0.0-0.6); ABSOLUTE LYMPHOCYTES (AUTO) 0.9 10^3/uL (0.5-4.7); ABSOLUTE MONOCYTES (AUTO) 0.3 10^3/uL (0.1-1.4); ABSOLUTE NEUT (AUTO) 2.4 10^3/uL (1.7-8.2); BASOPHILS % (AUTO) 0.4 % (0-2); EOSINOPHILS % (AUTO) 3.9 % (0-6); HEMOGLOBIN 10.5 g/dL (13.5-17.0); MEAN CORPUSCULAR HEMOGLOBIN 22.8 pg (27.0-33.4); MEAN CORPUSCULAR HGB CONC 31.8 g/dL (32.0-36.0); MEAN CORPUSCULAR VOLUME 72 fl (80-97); MONOCYTES % (AUTO) 7.3 % (3-13); RED CELL DISTRIBUTION WIDTH 21.5 % (11.5-14.0); SEGMENTED NEUTROPHILS % (AUTO) 64.4 % (42-78); TOTAL CELLS COUNTED % (AUTO) 100 %; WHITE BLOOD COUNT 3.7 10^3/uL (4.0-10.5)
[2018-02-23 08:37] LABS: ANION GAP 8 (5-19); BLOOD UREA NITROGEN 17 mg/dL (7-20); CALCIUM 8.6 mg/dL (8.4-10.2); CARBON DIOXIDE 24 mmol/L (22-30); CHLORIDE 110 mmol/L (98-107); GLUCOSE 303 mg/dL (75-110); POTASSIUM 3.4 mmol/L (3.6-5.0)
[2018-02-23 08:49] LABS: PLATELET ESTIMATE 73 10^3/uL (150-450)
[2018-02-23 08:51] LABS: ANISOCYTOSIS 3+; HYPOCHROMASIA 1+; OVALOCYTES 1+; POIKILOCYTOSIS 1+
[2018-02-23 08:52] LABS: PLATELET COMMENT DECREASED; PLATELET GIANT PRESENT; PLATELET LARGE PRESENT; TEAR DROP CELLS SLIGHT
[2018-02-23] MEDS: CARVEDILOL 3.125 MG TABLET PEG SCH ×2 (12:07→22:45)
[2018-02-23] MEDS: LANSOPRAZOLE 30 MG TAB.RAP.DR PEG SCH ×2 (12:07→17:41)
[2018-02-23] MEDS: LACTOBACILLUS ACIDOPHILUS 250 MG TAB PEG SCH ×2 (12:07→17:41)
[2018-02-23] MEDS: ASCORBIC ACID 500 MG TABLET PEG SCH ×3 (12:07→17:41)
[2018-02-23] MEDS: FOLIC ACID 1 MG TABLET PEG SCH (12:07)
[2018-02-23] MEDS: MULTIVITAMINS W-IRON TABLET, CHEWABLE PEG SCH (12:09)
[2018-02-23] MEDS: ENOXAPARIN SODIUM INJ 40 MG/0.4 ML DISP.SYRIN SUBCUT SCH (12:09)
[2018-02-23] MEDS: CEFTRIAXONE SODIUM 1,000 MG in NORMAL SALINE 50 ML IV SCH (17:41)
[2018-02-23 17:49] LABS: ANION GAP 7 (5-19); BLOOD UREA NITROGEN 16 mg/dL (7-20); CALCIUM 8.5 mg/dL (8.4-10.2); CARBON DIOXIDE 26 mmol/L (22-30); CHLORIDE 107 mmol/L (98-107); GLUCOSE 270 mg/dL (75-110); POTASSIUM 3.3 mmol/L (3.6-5.0); SODIUM 140.1 mmol/L (137-145)
--- NOTE | 2018-02-23 19:43 | PDOC PROGRESS REPORT ---
Subjective Progress Note for:: 02/23/18 Subjective:: No acute event overnight. Patient does not have acute complaints. No fever or chills. Patient's sodium remains elevated albeit improved from yesterday. Reason For Visit: HYPERNATREMIA,UTI,DEHYDRATION Physical Exam Vital Signs: Temp Pulse Resp BP Pulse Ox 98.8 F 64 17 125/69 100 02/23/18 15:31 02/23/18 15:31 02/23/18 15:31 02/23/18 15:31 02/23/18 15:31 Intake & Output 02/22/18 02/23/18 02/24/18 06:59 06:59 06:59 Intake Total 5403 3318 2067 Output Total 2950 1225 1200 Balance 2453 2093 867 Weight 194 lb 10.691 oz 202 lb 9.677 oz General appearance: PRESENT: no acute distress, well-developed, well-nourished Head exam: PRESENT: atraumatic, normocephalic Eye exam: PRESENT: conjunctiva pink, EOMI, PERRLA. ABSENT: scleral icterus Neck exam: ABSENT: carotid bruit, JVD, lymphadenopathy, thyromegaly Respiratory exam: PRESENT: clear to auscultation joaquin. ABSENT: rales, rhonchi, wheezes Cardiovascular exam: PRESENT: RRR. ABSENT: diastolic murmur, rubs, systolic murmur GI/Abdominal exam: PRESENT: normal bowel sounds, soft. ABSENT: distended, guarding, mass, organolmegaly, rebound, tenderness Neurological exam: PRESENT: alert, awake, oriented to person Results Laboratory Results: 02/23/18 08:01 02/23/18 17:30 02/23/18 02/23/18 02/23/18 08:01 08:01 08:01 WBC 3.7 L RBC 4.60 Hgb 10.5 L Hct 33.0 L MCV 72 L MCH 22.8 L MCHC 31.8 L RDW 21.5 H Plt Count Seg Neutrophils % 64.4 Lymphocytes % 24.0 Monocytes % 7.3 Eosinophils % 3.9 Basophils % 0.4 Absolute Neutrophils 2.4 Absolute Lymphocytes 0.9 Absolute Monocytes 0.3 Absolute Eosinophils 0.1 Absolute Basophils 0.0 Sodium 142.0 Potassium 3.4 L Chloride 110 H Carbon Dioxide 24 Anion Gap 8 BUN 17 Creatinine 0.75 Est GFR ( Amer) > 60 Est GFR (Non-Af Amer) > 60 Glucose 303 H Serum Osmolality 305 H Calcium 8.6 Urine Osmolality 02/23/18 02/23/18 13:20 17:30 WBC RBC Hgb Hct MCV MCH MCHC RDW Plt Count Seg Neutrophils % Lymphocytes % Monocytes % Eosinophils % Basophils % Absolute Neutrophils Absolute Lymphocytes Absolute Monocytes Absolute Eosinophils Absolute Basophils Sodium 140.1 Potassium 3.3 L Chloride 107 Carbon Dioxide 26 Anion Gap 7 BUN 16 Creatinine 0.75 Est GFR ( Amer) > 60 Est GFR (Non-Af Amer) > 60 Glucose 270 H Serum Osmolality Calcium 8.5 Urine Osmolality 143 L 02/17/18 15:11 Blood Blood Culture - Final NO GROWTH IN 5 DAYS Impressions: Chest X-Ray 02/17/18 09:09 IMPRESSION: Stable cardiomegaly and left-sided dual lead pacemaker. No acute findings Assessment & Plan - Diagnosis (1) Acute hypernatremia Is this a current diagnosis for this admission?: Yes Plan: This possibly related to dehydration due to poor oral intake. Continue free water 250 cc every 4 for now. Continue D5 0.25 NS at 1 50 cc/h. Sodium has improved from 166-150. Patient is also getting tube feeding at 40 cc/h. We will continue to monitor his sodium until normalized. - Time Time Spent with patient: 15-24 minutes
[2018-02-23] MEDS: ATORVASTATIN CALCIUM 10 MG TABLET PEG SCH (22:44)
[2018-02-23] MEDS: INSULIN GLARGINE,HUM.REC.ANLOG 300 UNIT/3 ML INSULN.PEN SUBCUT SCH (22:45)
[2018-02-23] MEDS: LATANOPROST 0.005% OPH SOLN 2.5 ML OU SCH (22:48)
[2018-02-24] MEDS: INSULIN LISPRO 100 UNIT/ML 3 ML VIAL SUBCUT PRN ×2 (06:24→18:28)
[2018-02-24 09:40] VITALS: BP 128/91
--- NOTE | 2018-02-24 09:49 | PDOC DISCHARGE SUMMARY ---
General - Admit/Disc Date/PCP Admission Date/Primary Care Provider: 02/17/18 13:33 CHAD HILLIARD Discharge Date: 02/24/18 - Discharge Diagnosis (1) Acute hypernatremia Is this a current diagnosis for this admission?: Yes - Additional Information Resuscitation Status: Full Code Home Medications: Acetaminophen [Tylenol 325 mg Tablet] 650 mg PEG Q6HP PRN 09/18/17 Atorvastatin Calcium [Lipitor 10 mg Tablet] 10 mg PEG QHS 09/18/17 Carvedilol [Coreg 3.125 mg Tablet] 3.125 mg PEG Q12 09/18/17 Finasteride [Proscar 5 mg Tablet] 5 mg PEG DAILY 09/18/17 Folic Acid [Folvite 1 mg Tablet] 1 mg PEG DAILY 09/18/17 Glucagon,Human Recombinant [Glucagon Emergency Kit] 1 mg SQ PRN PRN 09/18/17 Insulin Lispro [Humalog Insulin (Lispro) 100 unit/mL] 0 units SQ .SLIDING SCALE 09/18/17 Lansoprazole [Prevacid 30 mg Odt Tablet] 30 mg PEG BID 09/18/17 Latanoprost [Xalatan 0.005% Oph Soln 2.5 ml] 1 drop OU QHS 09/18/17 Sennosides/Docusate 8.6-50 mg [Senna Plus Tablet] 1 tab PEG DAILYP PRN 09/18/17 Ascorbic Acid [Vitamin C] 500 mg PEG TID 12/08/17 Multivitamins W-Iron [Flintstones Chewable Multivit W/Fe Tab] 2 tab PEG DAILY Lactobacillus Acidophilus [Bacid 250 mg Tablet] 500 mg PEG BID tab 12/13/17 Insulin Glargine,Hum.rec.anlog [Lantus Insulin 100 Unit/1 ml 10 ml] 15 unit SUBCUT QHS 02/17/18 History of Present Illness History of Present Illness: PHUC TOTH is a 77 year old male This patient was brought from the assisted to the emergency room for evaluation due to the change in his mental status. 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 History could not be obtained from him and information is obtained from records. He was found to be pretty dry with hypernatremia as well as a urinary tract infection and patient is been admitted for further evaluation and management Hospital Course Hospital Course: Mr. White is a 77-year-old male with a history of CVA with residual aphasia was brought in from a assisted because of confusion. On presentation patient was noted to be severely dehydrated treated. He had severe hyponatremia with a serum sodium 174. He was given IV fluids and he was also started on D5 0.25 normal saline at 150 cc/h. He was also started on free water 250 cc every 4. 2 feeding was continued inpatient. Urine and serum osmolalities were done and results are are consistent with severe dehydration. Patient's mentation did improve. Although he has aphasia, he became more awake and oriented to person. His sodium trended down in normalized. Upon day of discharge, patient's sodium was down to 140 from 142 the day prior to discharge. Patient was also treated for urinary tract infection. His urine cultures grew Proteus and alkaline edginess both of which were sensitive to ceftriaxone. Patient received a total of 7 days of ceftriaxone. If this is enough duration for his UTI and he will not be discharge further on home antibiotics. This patient does not eat or drink due to dysphagia from his previous CVA, he needs up to immunization of his hydration status while at the assisted. Recommend giving free water 350 cc every 4 hrs via PEG. Continue tube feedings at the assisted. Physical Exam Vital Signs: Temp Pulse Resp BP Pulse Ox 98.7 F 74 16 128/91 H 80 L 02/24/18 08:00 02/24/18 08:00 02/24/18 08:00 02/24/18 08:00 02/23/18 19:31 Intake & Output 02/23/18 02/24/18 02/25/18 06:59 06:59 06:59 Intake Total 3318 4086 Output Total 1225 2300 Balance 2093 1786 Weight 202 lb 9.677 oz 207 lb 0.225 oz General appearance: PRESENT: no acute distress, well-developed, well-nourished Head exam: PRESENT: atraumatic, normocephalic Eye exam: PRESENT: conjunctiva pink, EOMI, PERRLA. ABSENT: scleral icterus Neck exam: ABSENT: carotid bruit, JVD, lymphadenopathy, thyromegaly Respiratory exam: PRESENT: clear to auscultation joaquin. ABSENT: rales, rhonchi, wheezes Cardiovascular exam: PRESENT: RRR. ABSENT: diastolic murmur, rubs, systolic murmur Pulses: PRESENT: normal dorsalis pedis pul GI/Abdominal exam: PRESENT: normal bowel sounds, soft, other - ileostomy appears unremarkable. ABSENT: distended, guarding, mass, organolmegaly, rebound , tenderness Rectal exam: PRESENT: deferred Neurological exam: PRESENT: awake, oriented to person Results Laboratory Results: 02/23/18 08:01 02/23/18 17:30 02/23/18 02/23/18 02/23/18 08:01 13:20 17:30 Sodium 140.1 Potassium 3.3 L Chloride 107 Carbon Dioxide 26 Anion Gap 7 BUN 16 Creatinine 0.75 Est GFR ( Amer) > 60 Est GFR (Non-Af Amer) > 60 Glucose 270 H Serum Osmolality 305 H Calcium 8.5 Urine Osmolality 143 L Impressions: Chest X-Ray 02/17/18 09:09 IMPRESSION: Stable cardiomegaly and left-sided dual lead pacemaker. No acute findings Qualifiers - * PATIENT BEING DISCHARGED WITH ANY OF THE FOLLOWING DIAGNOSIS: No
[2018-02-24] MEDS: ENOXAPARIN SODIUM INJ 40 MG/0.4 ML DISP.SYRIN SUBCUT SCH (10:34)
[2018-02-24] MEDS: FOLIC ACID 1 MG TABLET PEG SCH (10:46)
[2018-02-24] MEDS: ASCORBIC ACID 500 MG TABLET PEG SCH ×2 (10:46→18:32)
[2018-02-24] MEDS: LANSOPRAZOLE 30 MG TAB.RAP.DR PEG SCH ×2 (10:46→18:28)
[2018-02-24] MEDS: CARVEDILOL 3.125 MG TABLET PEG SCH (10:46)
[2018-02-24] MEDS: LACTOBACILLUS ACIDOPHILUS 250 MG TAB PEG SCH ×2 (10:46→18:28)
[2018-02-24] MEDS: MULTIVITAMINS W-IRON TABLET, CHEWABLE PEG SCH (10:47)
[2018-02-24] MEDS ORDERED: POTASSIUM CHLORIDE 20 MEQ/15 ML UDCUP PO ONE (10:55)
== END 2018-02-24 21:22 | DRG 641 ==
LOC: ER 08:45 → EH 12:48 → UNDOADMIN 12:48 → EH 13:33 → 4N 18:47 → EH 18:47
PROVIDERS: ADMIT Internal Medicine; ATTEND Internal Medicine
DX: E87.0 Hyperosmolality and hypernatremia (principal); T83.511A Infection and inflammatory reaction due to indwelling urethral catheter, initial encounter; N39.0 Urinary tract infection, site not specified; N17.9 Acute kidney failure, unspecified; N13.8 Other obstructive and reflux uropathy; I69.320 Aphasia following cerebral infarction; B96.4 Proteus (mirabilis) (morganii) as the cause of diseases classified elsewhere; E86.0 Dehydration; F03.90 Unspecified dementia, unspecified severity, without behavioral disturbance, psychotic disturbance, mood disturbance, and anxiety; I11.0 Hypertensive heart disease with heart failure; I25.10 Atherosclerotic heart disease of native coronary artery without angina pectoris; I50.9 Heart failure, unspecified; E11.51 Type 2 diabetes mellitus with diabetic peripheral angiopathy without gangrene; Y84.6 Urinary catheterization as the cause of abnormal reaction of the patient, or of later complication, without mention of misadventure at the time of the procedure; E78.5 Hyperlipidemia, unspecified; N40.1 Benign prostatic hyperplasia with lower urinary tract symptoms; Z89.512 Acquired absence of left leg below knee; Z79.4 Long term (current) use of insulin; Z95.810 Presence of automatic (implantable) cardiac defibrillator; Z79.899 Other long term (current) drug therapy; Z93.1 Gastrostomy status; I25.2 Old myocardial infarction; Z95.5 Presence of coronary angioplasty implant and graft
CPT/HCPCS: 36415; 71045; 80048; 80053; 81001; 82962; 83930; 83935; 84484; 85025; 87040; 87086; 87088; 87186; 93005; 93010; 99285; J0696; J1650; J1815; J1940; J3490; J7030

== ENCOUNTER 2018-03-30 05:39 | Inpatient (IN) | payer MEDICARE, MEDICAID ==
[2018-03-30] MEDS ORDERED: PIPERACILLIN/TAZOBACTAM 4.5 GM VIAL IV ONE (05:54)
[2018-03-30] MEDS ORDERED: NORMAL SALINE 1000 ML 1,000 ML IV ONE (05:54)
--- NOTE | 2018-03-30 06:09 | RADIOLOGY REPORT (SQ) ---
EXAM DESCRIPTION: XR CHEST 1 VIEW COMPLETED DATE/TME: 03/30/2018 00:00 CLINICAL HISTORY: DIFF BREATHING COMPARISON: 02/17/2018 FINDINGS: Single frontal view of the chest. Dual-lead left-sided pacemaker. Tortuosity of thoracic aorta. Heart is not enlarged. Low lung volumes. No consolidation, pneumothorax, or pleural effusion. Degenerative change of the shoulders. Upper abdominal soft tissues are unremarkable. IMPRESSION: 1. No acute pulmonary process identified.
[2018-03-30 06:26] LABS: VENOUS BLOOD BASE EXCESS -2.6 mmol/L; VENOUS BLOOD HCO3 23.4 mmol/L (20-32); VENOUS BLOOD PCO2 44.7 mmHg (35-63); VENOUS BLOOD PH 7.34 (7.30-7.42)
[2018-03-30 06:32] LABS: HEMATOCRIT 40.4 % (37.9-51.0); HEMOGLOBIN 12.8 g/dL (13.5-17.0); MEAN CORPUSCULAR HEMOGLOBIN 22.7 pg (27.0-33.4); MEAN CORPUSCULAR HGB CONC 31.7 g/dL (32.0-36.0); MEAN CORPUSCULAR VOLUME 72 fl (80-97); PLATELET COUNT 285 10^3/uL (150-450); RED BLOOD COUNT 5.63 10^6/uL (4.35-5.55); RED CELL DISTRIBUTION WIDTH 23.3 % (11.5-14.0); WHITE BLOOD COUNT 25.1 10^3/uL (4.0-10.5)
[2018-03-30 06:33] LABS: INTERNATIONAL RATION (INR) 1.28; PROTHROMBIN TIME 16.6 SEC (11.4-15.4)
[2018-03-30 06:44] LABS: ALANINE AMINOTRANSFERASE 18 U/L (21-72); ALBUMIN 3.7 g/dL (3.5-5.0); ALKALINE PHOSPHATASE 106 U/L (38-126); ANION GAP 16 (5-19); ASPARTATE AMINO TRANSFERASE 18 U/L (17-59); BILIRUBIN,DIRECT 0.5 mg/dL (0.0-0.4); BILIRUBIN,TOTAL 0.5 mg/dL (0.2-1.3); BLOOD UREA NITROGEN 118 mg/dL (7-20); CALCIUM 9.6 mg/dL (8.4-10.2); CARBON DIOXIDE 26 mmol/L (22-30); CHLORIDE 102 mmol/L (98-107)
[2018-03-30 06:49] LABS: ABSOLUTE NEUTROPHILS# (MANUAL) 23.1 10^3/uL (1.7-8.2); BASOPHILS % (MANUAL) 0 % (0-2); EOSINOPHILS % (MANUAL) 0 % (0-6); LYMPHOCYTES % (MANUAL) 4 % (13-45); MONOCYTES % (MANUAL) 4 % (3-13); SEGMENTED NEUTROPHILS % (MAN) 92 % (42-78); TOTAL CELLS COUNTED 100
[2018-03-30 06:50] LABS: ANISOCYTOSIS 3+; POLYCHROMASIA 1+
[2018-03-30 06:51] LABS: PLATELET COMMENT ADEQUATE
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
[2018-03-30 07:02] LABS: GLUCOSE 513 mg/dL (75-110)
[2018-03-30 07:03] LABS: POTASSIUM 6.5 mmol/L (3.6-5.0); TROPONIN I 0.061 ng/mL
[2018-03-30] MEDS ORDERED: INSULIN REG, HUMAN 100 UNIT/ML 3 ML VIAL (PYX) IV ONE (07:22)
[2018-03-30] MEDS ORDERED: CALCIUM GLUCONATE 1000 MG/10 ML INJ IV ONE (07:23)
[2018-03-30] MEDS ORDERED: DEXTROSE 50%-WATER 25 GM/50 ML DISP.SYRIN IV PRN ×2 (08:23)
[2018-03-30] MEDS ORDERED: MAG HYDROX/AL HYDROX/SIMETH SUSP 30 ML UDCUP PO PRN (08:23)
[2018-03-30] MEDS ORDERED: MAGNESIUM HYDROXIDE SUSP 30 ML UDCUP PO PRN (08:23)
[2018-03-30] MEDS ORDERED: TEMAZEPAM 15 MG CAPSULE PO PRN (08:23)
[2018-03-30] MEDS ORDERED: IPRATROPIUM/ALBUTEROL 0.5-2.5 MG/3 ML AMPUL NEB PRN (08:23)
[2018-03-30] MEDS ORDERED: ACETAMINOPHEN 650 MG SUPP.RECT PR PRN (08:23)
[2018-03-30] MEDS ORDERED: ACETAMINOPHEN 325 MG TABLET PO PRN (08:23)
[2018-03-30] MEDS ORDERED: DEXTROSE 40% GEL 15 GM TUBE PO PRN ×2 (08:23)
[2018-03-30] MEDS ORDERED: GLUCAGON,HUMAN RECOMB 1 MG INJ IM PRN (08:23)
[2018-03-30] MEDS ORDERED: SENNOSIDES/DOCUSATE 8.6-50 MG 1 EACH TABLET PEG PRN (08:49)
[2018-03-30] MEDS: 1/2 NORMAL SALINE 1,000 ML IV PRN ×2 (09:15→21:30)
[2018-03-30 09:38] LABS: ANION GAP 12 (5-19); CALCIUM 9.4 mg/dL (8.4-10.2); CARBON DIOXIDE 24 mmol/L (22-30); CHLORIDE 107 mmol/L (98-107); SODIUM 143.4 mmol/L (137-145)
[2018-03-30 09:46] LABS: BLOOD UREA NITROGEN 120 mg/dL (7-20); GLUCOSE 397 mg/dL (75-110)
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
[2018-03-30] MEDS ORDERED: ERTAPENEM SODIUM INJ 1 GM VIAL IV SCH (10:00)
[2018-03-30] MEDS ORDERED: ERTAPENEM SODIUM 1 GM in NORMAL SALINE 50 ML IV SCH (10:00)
[2018-03-30] MEDS: CARVEDILOL 3.125 MG TABLET PEG SCH ×2 (10:39→21:31)
[2018-03-30] MEDS: MULTIVITAMINS W-IRON TABLET, CHEWABLE PEG SCH (10:41)
[2018-03-30] MEDS: FOLIC ACID 1 MG TABLET PEG SCH (10:41)
[2018-03-30] MEDS: PANTOPRAZOLE SODIUM 40 MG VIAL IV SCH ×2 (10:42→21:31)
[2018-03-30] MEDS: ERTAPENEM SODIUM 1 GM in NORMAL SALINE 50 ML IV SCH (10:42)
[2018-03-30] MEDS: DOCUSATE SODIUM 100 MG CAPSULE PO SCH ×2 (11:00→17:31)
[2018-03-30] MEDS: HEPARIN SOD (PORCINE) 5,000 UNIT/ML 1 ML SYRINGE SUBCUT SCH ×2 (14:18→21:31)
[2018-03-30] MEDS: LIDOCAINE 2% JELLY 5 ML TUBE TOP PRN (14:18)
--- NOTE | 2018-03-30 14:24 | PDOC H&P ---
History of Present Illness Admission Date/PCP: 03/30/18 08:34 CHAD HILLIARD Patient complains of: Dyspnea History of Present Illness: SEUN TOTH is a 77 year old male who presented from the [facility]. assisted staff had indicated that the patient was acutely dyspneic and acutely more confused (or less responsive) than his usual state of chronic dementia, resulting in transport by emergency medical services to the emergency room. In the emergency room he was found to have a severe urinary tract infection with essentially pure pus present in a Catalan catheter draining approximately 2 L upon irrigation of the catheter. A severe catheter related injury to the urethra was noted as resulted in a near complete hypospadias due to catheter induced erosion of the urethra and corpus cavernosum of the penile shaft. Additionally he was found to be severely hyperkalemic and hyperglycemic. His dyspnea was addressed utilizing BiPAP to which he responded well. Additionally was started on antibiotic therapy on empiric basis for his urinary tract infection and his hyperglycemia and hyperkalemia were treated by administration of insulin. He was admitted to the ICU for further evaluation and treatment. The patient has significant chronic dementia and is unable to contribute substantially or reliably to his medical care. Past Medical History Past Medical History: All past medical history is obtained from old records as the patient is unable to provide meaningful input into his medical record due to his dementia. Cardiac Medical History: Reports: Congestive Heart Failure, Coronary Artery Disease - stent x 1, Myocardial Infarction - 2004, Hyperlipidema, Hypertension, Peripheral Vascular Disease Pulmonary Medical History: Reports: Asthma - as child, Chronic Obstructive Pulmonary Disease (COPD) Denies: Bronchitis, Pneumonia, Tuberculosis Neurological Medical History: Denies: Seizures Endocrine Medical History: Reports: Diabetes Mellitus Type 2 GI Medical History: Reports: Gastroesophageal Reflux Disease Denies: Hiatal Hernia Musculoskeltal Medical History: Reports: Arthritis Psychiatric Medical History: Reports: Dementia, Depression Denies: Attention Deficit Hyperactivity Disorder, Bipolar Disorder Hematology: Reports: Anemia Denies: Sickle Cell Disease Past Surgical History Past Surgical History: Reports: Coronary Stent, Internal Defibrillator, Orthopedic Surgery - left BKA, Vascular Surgery - left groin, Other - PEG tube Social History Information Source: Transfer Record, Emergency Med Personnel, [facility] Records Lives with: Shelter Smoking Status: Former Smoker Frequency of Alcohol Use: None Hx Recreational Drug Use: No Drugs: None Hx Prescription Drug Abuse: No - Advance Directive Resuscitation Status: Full Code Family History Family History: Other - Unobtainable since patient is nonverbal and has dementia. Parental Family History Reviewed: No Children Family History Reviewed: No Sibling(s) Family History Reviewed.: No Medication/Allergy Home Medications: Acetaminophen [Tylenol] 650 mg PEG Q6HP PRN 03/30/18 Ascorbic Acid [Vitamin C 500 mg Tablet] 500 mg PEG TID 03/30/18 Atorvastatin Calcium [Lipitor 10 mg Tablet] 10 mg PEG QHS 03/30/18 Carvedilol [Coreg 3.125 mg Tablet] 3.125 mg PEG Q12 03/30/18 Finasteride [Proscar 5 mg Tablet] 5 mg PEG DAILY 03/30/18 Folic Acid [Folvite 1 mg Tablet] 1 mg PEG DAILY 03/30/18 Insulin Glargine,Hum.rec.anlog [Lantus] 15 unit SQ QHS 03/30/18 Insulin Lispro [Humalog Insulin 100 Unit/1 ml 3 ml Vial] 0 unit SUBCUT .SLD SCALE 03/30/18 Lansoprazole [Prevacid] 30 mg PEG BID 03/30/18 Latanoprost [Xalatan 0.005% Oph Soln 2.5 ml] 1 drop OU QHS 03/30/18 Pediatric Multivitamin No.42 [Flintstones] 2 each PEG DAILY 03/30/18 Sennosides/Docusate 8.6-50 mg [Senna Plus Tablet] 1 tab PEG DAILY 03/30/18 Allergies/Adverse Reactions: No Known Allergies Allergy (Verified 02/22/17 11:56) Physical Exam Vital Signs: Temp Pulse Resp BP Pulse Ox 99.6 F 96 15 114/79 100 03/30/18 07:23 03/30/18 10:01 03/30/18 12:01 03/30/18 11:01 03/30/18 12:01 General appearance: PRESENT: no acute distress, other - Resting comfortably with a BiPAP mask in place. Head exam: PRESENT: atraumatic, normocephalic Eye exam: PRESENT: conjunctiva pink. ABSENT: conjunctival injection Ear exam: PRESENT: normal external ear exam. ABSENT: bleeding, drainage Mouth exam: PRESENT: neck supple, tongue midline Neck exam: ABSENT: thyromegaly, tracheal deviation Respiratory exam: PRESENT: symmetrical, other - On BiPAP. ABSENT: crackles, wheezes Cardiovascular exam: PRESENT: RRR, tachycardia, other - Implanted defibrillator noted in the left upper anterior chest.. ABSENT: clicks, diastolic murmur, gallop, rubs, systolic murmur Pulses: PRESENT: normal carotid pulses, normal radial pulses, normal dorsalis pedis pul GI/Abdominal exam: PRESENT: normal bowel sounds, soft Rectal exam: PRESENT: deferred Gentrourinary exam: PRESENT: urethral discharge - Thick purulent discharge is present in the catheter bag., indwelling catheter - Indwelling Catalan catheter has been irrigated, other - Indwelling Catalan catheter has eroded through the ventral urethra and the ventral portion of the corpus cavernosum of the penile shaft all the way to the base of the penile shaft thus creating a complete hypospadias. Extremities exam: ABSENT: joint swelling, pedal edema Musculoskeletal exam: PRESENT: deformity, other - Left hemiparesis is noted.. ABSENT: normal inspection - Status post left BKA Neurological exam: PRESENT: alert, awake, oriented to person, motor sensory deficit - Left hemiparesis is noted.. ABSENT: oriented to place, oriented to time, oriented to situation Psychiatric exam: ABSENT: agitated, anxious Skin exam: ABSENT: jaundice, rash, urticaria Results Laboratory Results: 03/30/18 08:48 03/30/18 03/30/18 08:48 10:22 Sodium 143.4 Potassium 6.0 H* Chloride 107 Carbon Dioxide 24 Anion Gap 12 BUN 120 H Creatinine 3.76 H Est GFR ( Amer) 19 L Est GFR (Non-Af Amer) 16 L Glucose 397 H Lactic Acid 2.4 H Calcium 9.4 Impressions: Chest X-Ray 03/30/18 00:00 IMPRESSION: 1. No acute pulmonary process identified. Assessment & Plan - Diagnosis (1) Hyperkalemia Is this a current diagnosis for this admission?: Yes Plan: Treated with IV fluids and insulin also used for treatment of hyperglycemia. (2) UTI (urinary tract infection) due to urinary indwelling Catalan catheter Is this a current diagnosis for this admission?: Yes Plan: The patient was placed on empiric antibiotic therapy utilizing ertapenem will also be treated with maintenance IV fluids to support adequate urine output. (3) ARF (acute renal failure) Qualifiers: Acute renal failure type: unspecified Is this a current diagnosis for this admission?: Yes Plan: Patient is being treated with IV fluids and close monitoring of his laboratory values. Underlying additional contributing factors to renal failure including urinary tract infection are being treated with IV antibiotics and supportive care. (4) Hyperglycemia due to type 2 diabetes mellitus Qualifiers: Diabetes mellitus usp insulin use: with usp use Qualified Code( s): E11.65 - Type 2 diabetes mellitus with hyperglycemia; Z79.4 - sales development specialist ( current) use of insulin; Z79.4 - sales development specialist (current) use of insulin; Z79.4 - senior living (current) use of insulin; Z79.4 - sales development specialist (current) use of insulin Is this a current diagnosis for this admission?: Yes Plan: Will use lispro insulin for treatment of the hyperglycemia this will also aid in the treatment of the patient's hyperkalemia. We will monitor lab values closely on a serial basis. - Time Time Spent: 50 to 70 Minutes Critical Time spent with patient: Less than 15 minutes Medications reviewed and adjusted accordingly: Yes Anticipated discharge: SNF
--- NOTE | 2018-03-30 15:32 | EKG REPORT ---
SEVERITY:- ABNORMAL ECG - SINUS TACHYCARDIA NONSPECIFIC INTRAVENTRICULAR CONDUCTION DELAY INFERIOR INFARCT, AGE INDETERMINATE : Confirmed by: Tika Dent MD 30-Mar-2018 15:31:07
[2018-03-30] MEDS: INSULIN LISPRO 100 UNIT/ML 3 ML VIAL SUBCUT PRN ×2 (18:26→23:27)
[2018-03-30] MEDS: ATORVASTATIN CALCIUM 10 MG TABLET PEG SCH (21:30)
[2018-03-30] MEDS: INSULIN GLARGINE,HUM.REC.ANLOG 300 UNIT/3 ML INSULN.PEN SUBCUT SCH (21:34)
[2018-03-30] MEDS: LATANOPROST 0.005% OPH SOLN 2.5 ML OU SCH (21:35)
[2018-03-30] MEDS ORDERED: INSULIN GLARGINE,HUM.REC.ANLOG 1,000 UNIT/10 ML UNIT SUBCUT SCH ×2 (22:00)
[2018-03-31] MEDS: 1/2 NORMAL SALINE 1,000 ML IV PRN ×4 (03:28→22:52)
[2018-03-31] MEDS: HEPARIN SOD (PORCINE) 5,000 UNIT/ML 1 ML SYRINGE SUBCUT SCH ×3 (05:09→21:44)
[2018-03-31 06:35] LABS: ABSOLUTE EOSINOPHILS # (AUTO) 0.1 10^3/uL (0.0-0.6); ABSOLUTE LYMPHOCYTES (AUTO) 1.2 10^3/uL (0.5-4.7); ABSOLUTE MONOCYTES (AUTO) 0.4 10^3/uL (0.1-1.4); BASOPHILS % (AUTO) 0.2 % (0-2); HEMATOCRIT 32.9 % (37.9-51.0); LYMPHOCYTES % (AUTO) 8.7 % (13-45); MEAN CORPUSCULAR HEMOGLOBIN 22.3 pg (27.0-33.4); MEAN CORPUSCULAR HGB CONC 31.2 g/dL (32.0-36.0); MEAN CORPUSCULAR VOLUME 71 fl (80-97); MONOCYTES % (AUTO) 2.7 % (3-13); PLATELET COUNT 209 10^3/uL (150-450); RED BLOOD COUNT 4.61 10^6/uL (4.35-5.55); RED CELL DISTRIBUTION WIDTH 22.1 % (11.5-14.0); SEGMENTED NEUTROPHILS % (AUTO) 87.4 % (42-78); TOTAL CELLS COUNTED % (AUTO) 100 %; WHITE BLOOD COUNT 13.7 10^3/uL (4.0-10.5)
[2018-03-31 06:36] LABS: HEMOGLOBIN 10.3 g/dL (13.5-17.0)
[2018-03-31 06:53] LABS: ANION GAP 7 (5-19); CARBON DIOXIDE 28 mmol/L (22-30); CHLORIDE 107 mmol/L (98-107); GLUCOSE 93 mg/dL (75-110); SODIUM 141.9 mmol/L (137-145)
[2018-03-31 06:59] LABS: BLOOD UREA NITROGEN 117 mg/dL (7-20)
[2018-03-31 07:02] LABS: POTASSIUM 4.8 mmol/L (3.6-5.0)
[2018-03-31] MEDS: FOLIC ACID 1 MG TABLET PEG SCH (10:02)
[2018-03-31] MEDS: PANTOPRAZOLE SODIUM 40 MG VIAL IV SCH ×2 (10:02→21:44)
[2018-03-31] MEDS: MULTIVITAMINS W-IRON TABLET, CHEWABLE PEG SCH (10:02)
[2018-03-31] MEDS: DOCUSATE SODIUM 100 MG CAPSULE PO SCH ×2 (10:04→17:05)
[2018-03-31] MEDS: CARVEDILOL 3.125 MG TABLET PEG SCH ×2 (10:05→21:27)
[2018-03-31] MEDS: ERTAPENEM SODIUM 1 GM in NORMAL SALINE 50 ML IV SCH (10:06)
--- NOTE | 2018-03-31 10:38 | PDOC PROGRESS REPORT ---
Subjective Progress Note for:: 03/31/18 Subjective:: ADARSH TOTH is a 77 year old male who presented from the [facility]. [facility] staff had indicated that the patient was acutely dyspneic and acutely more confused (or less responsive) than his usual state of chronic dementia, resulting in transport by emergency medical services to the emergency room. In the emergency room he was found to have a severe urinary tract infection with essentially pure pus present in a Meek catheter draining approximately 2 L upon irrigation of the catheter. A severe catheter related injury to the urethra was noted as resulted in a near complete hypospadias due to catheter induced erosion of the urethra and corpus cavernosum of the penile shaft. Additionally he was found to be severely hyperkalemic and hyperglycemic. His dyspnea was addressed utilizing BiPAP to which he responded well. Additionally was started on antibiotic therapy on empiric basis for his urinary tract infection and his hyperglycemia and hyperkalemia were treated by administration of insulin. He was admitted to the ICU for further evaluation and treatment. The patient has significant chronic dementia and is unable to contribute substantially or reliably to his medical care. 03/31/18: Adarsh is somewhat improved today. He is able to answer yes and no appropriately in response to simple questions, and speak single words that are easily identifiable as requests or complaints. This we would assume is his baseline mental status per report from his group home. He did indicate that he has any pain. His white count and blood sugar have dropped considerably to much more normal levels and his electrolytes have stabilized nicely. Urine sensitivity results have not yet been returned but he is noted to have a gram negative scarlett present in greater than 100,000 colonies per milliliter in his urine. Reason For Visit: UTI DUE TO URINARY INDWELLING, MEEK CATHETER, Physical Exam Vital Signs: Temp Pulse Resp BP Pulse Ox 98.1 F 75 16 121/80 100 03/31/18 08:00 03/31/18 10:00 03/31/18 10:00 03/31/18 10:00 03/31/18 10:00 Intake & Output 03/30/18 03/31/18 04/01/18 06:59 06:59 06:59 Intake Total 2046 1000 Output Total 1570 375 Balance 476 625 Weight 81.8 kg General appearance: PRESENT: no acute distress, cooperative Head exam: PRESENT: atraumatic, normocephalic Eye exam: PRESENT: conjunctiva pink. ABSENT: conjunctival injection Ear exam: PRESENT: normal external ear exam. ABSENT: bleeding, drainage Mouth exam: PRESENT: moist, neck supple Neck exam: ABSENT: JVD, thyromegaly, tracheal deviation Respiratory exam: PRESENT: clear to auscultation joaquin, symmetrical, unlabored Cardiovascular exam: PRESENT: RRR. ABSENT: bradycardia, clicks, diastolic murmur, gallop, rubs, systolic murmur, tachycardia Pulses: PRESENT: normal femoral pulses, normal dorsalis pedis pul Vascular exam: PRESENT: normal capillary refill. ABSENT: pallor GI/Abdominal exam: PRESENT: normal bowel sounds, soft Rectal exam: PRESENT: deferred Gentrourinary exam: PRESENT: indwelling catheter, other - Iatrogenic traumatic complete hypospadias is noted again and is unchanged from prior notation. Extremities exam: ABSENT: joint swelling, tenderness Musculoskeletal exam: PRESENT: other - Status post left BKA. ABSENT: deformity , dislocation, tenderness Neurological exam: PRESENT: alert, awake, oriented to person, oriented to place , motor sensory deficit - Left hemiparesis is noted to be present. ABSENT: oriented to time, oriented to situation, CN II-XII grossly intact - Left facial hemiparesis is noted Psychiatric exam: PRESENT: appropriate affect, normal mood Skin exam: ABSENT: jaundice, rash, urticaria Results Laboratory Results: 03/31/18 06:00 03/31/18 06:00 03/30/18 03/31/18 03/31/18 10:22 06:00 06:00 WBC 13.7 H RBC 4.61 Hgb 10.3 L D Hct 32.9 L MCV 71 L MCH 22.3 L MCHC 31.2 L RDW 22.1 H Plt Count 209 Seg Neutrophils % 87.4 H Lymphocytes % 8.7 L Monocytes % 2.7 L Eosinophils % 1.0 Basophils % 0.2 Absolute Neutrophils 12.0 H Absolute Lymphocytes 1.2 Absolute Monocytes 0.4 Absolute Eosinophils 0.1 Absolute Basophils 0.0 Sodium 141.9 Potassium 4.8 D Chloride 107 Carbon Dioxide 28 Anion Gap 7 BUN 117 H Creatinine 3.13 H Est GFR ( Amer) 23 L Est GFR (Non-Af Amer) 19 L Glucose 93 Lactic Acid 2.4 H Calcium 9.0 Magnesium 2.8 H Impressions: Chest X-Ray 03/30/18 00:00 IMPRESSION: 1. No acute pulmonary process identified. Assessment & Plan - Diagnosis (1) Hyperkalemia Is this a current diagnosis for this admission?: Yes Plan: Treated with IV fluids and insulin also used for treatment of hyperglycemia with excellent resolution. Potassium levels have remained stable since initial treatment. (2) UTI (urinary tract infection) due to urinary indwelling Meek catheter Is this a current diagnosis for this admission?: Yes Plan: The patient was placed on empiric antibiotic therapy utilizing ertapenem, will also be treated with maintenance IV fluids to support adequate urine output. White blood count has decreased in urine output is excellent. Patient seems to be recovering his more confused state and all things are essentially returning to baseline. (3) ARF (acute renal failure) Qualifiers: Acute renal failure type: unspecified Qualified Code(s): N17.9 - Acute kidney failure, unspecified Is this a current diagnosis for this admission?: Yes Plan: Patient is being treated with IV fluids and close monitoring of his laboratory values. Underlying additional contributing factors to renal failure including urinary tract infection are being treated with IV antibiotics and supportive care. 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 We will monitor lab values closely on a serial basis. - Time Time Spent with patient: 25-34 minutes Medications reviewed and adjusted accordingly: Yes Anticipated discharge: SNF
[2018-03-31] MEDS ORDERED: ACETAMINOPHEN 325 MG TABLET PEG PRN (11:05)
[2018-03-31 14:01] LABS: FREE T3 2.18 pg/mL (2.77-5.27); FREE T4 (FREE THYROXINE) 1.48 ng/dL (0.78-2.19)
[2018-03-31 14:14] LABS: THYROID STIMULATING HORMONE 1.49 uIU/mL (0.47-4.68)
[2018-03-31] MEDS: ASCORBIC ACID 500 MG TABLET PEG SCH ×2 (15:30→17:07)
[2018-03-31] MEDS ORDERED: LANSOPRAZOLE 30 MG TAB.RAP.DR PEG SCH (18:00)
[2018-03-31] MEDS ORDERED: (PENDING PHARMACY ID) (Lansoprazole [Prevacid] 30 MG) PEG SCH (18:00)
[2018-03-31] MEDS: INSULIN GLARGINE,HUM.REC.ANLOG 300 UNIT/3 ML INSULN.PEN SUBCUT SCH (21:30)
[2018-03-31] MEDS: ATORVASTATIN CALCIUM 10 MG TABLET PEG SCH (21:44)
[2018-03-31] MEDS: LATANOPROST 0.005% OPH SOLN 2.5 ML OU SCH (21:54)
[2018-03-31] MEDS ORDERED: LATANOPROST 0.005% OPH SOLN 2.5 ML OU SCH (22:00)
[2018-03-31] MEDS ORDERED: INSULIN GLARGINE,HUM.REC.ANLOG 1,000 UNIT/10 ML UNIT SUBCUT SCH ×2 (22:00)
[2018-03-31] MEDS ORDERED: ATORVASTATIN CALCIUM 10 MG TABLET PEG SCH (22:00)
[2018-04-01 04:22] LABS: ABSOLUTE EOSINOPHILS # (AUTO) 0.1 10^3/uL (0.0-0.6); ABSOLUTE MONOCYTES (AUTO) 0.4 10^3/uL (0.1-1.4); ABSOLUTE NEUT (AUTO) 6.2 10^3/uL (1.7-8.2); BASOPHILS % (AUTO) 0.4 % (0-2); EOSINOPHILS % (AUTO) 1.8 % (0-6); HEMATOCRIT 30.3 % (37.9-51.0); HEMOGLOBIN 9.8 g/dL (13.5-17.0); LYMPHOCYTES % (AUTO) 13.4 % (13-45); MEAN CORPUSCULAR HEMOGLOBIN 22.9 pg (27.0-33.4); MEAN CORPUSCULAR HGB CONC 32.3 g/dL (32.0-36.0); MEAN CORPUSCULAR VOLUME 71 fl (80-97); MONOCYTES % (AUTO) 5.1 % (3-13); PLATELET COUNT 194 10^3/uL (150-450); RED BLOOD COUNT 4.29 10^6/uL (4.35-5.55); RED CELL DISTRIBUTION WIDTH 22.1 % (11.5-14.0); SEGMENTED NEUTROPHILS % (AUTO) 79.3 % (42-78); TOTAL CELLS COUNTED % (AUTO) 100 %; WHITE BLOOD COUNT 7.9 10^3/uL (4.0-10.5)
[2018-04-01] MEDS: 1/2 NORMAL SALINE 1,000 ML IV PRN ×2 (04:54→10:13)
[2018-04-01] MEDS: HEPARIN SOD (PORCINE) 5,000 UNIT/ML 1 ML SYRINGE SUBCUT SCH ×3 (05:28→21:32)
[2018-04-01 05:38] LABS: ANION GAP 10 (5-19); BLOOD UREA NITROGEN 105 mg/dL (7-20); CALCIUM 8.8 mg/dL (8.4-10.2); CARBON DIOXIDE 22 mmol/L (22-30); CHLORIDE 109 mmol/L (98-107); GLUCOSE 69 mg/dL (75-110); POTASSIUM 4.6 mmol/L (3.6-5.0)
[2018-04-01] MEDS ORDERED: TEMAZEPAM 15 MG CAPSULE PEG PRN (08:00)
[2018-04-01] MEDS ORDERED: MAGNESIUM HYDROXIDE SUSP 30 ML UDCUP PEG PRN (08:00)
[2018-04-01] MEDS ORDERED: MAG HYDROX/AL HYDROX/SIMETH SUSP 30 ML UDCUP PEG PRN (08:00)
[2018-04-01] MEDS ORDERED: FINASTERIDE 5 MG TABLET PO SCH (10:00)
[2018-04-01] MEDS ORDERED: MULTIVITAMINS W-IRON TABLET, CHEWABLE PEG SCH (10:00)
[2018-04-01] MEDS ORDERED: [UNRECOGNIZED DRUG - OTHER] PEG SCH (10:00)
[2018-04-01] MEDS ORDERED: FOLIC ACID 1 MG TABLET PEG SCH (10:00)
[2018-04-01] MEDS: ERTAPENEM SODIUM 1 GM in NORMAL SALINE 50 ML IV SCH (10:11)
[2018-04-01] MEDS: ASCORBIC ACID 500 MG TABLET PEG SCH ×3 (10:11→17:58)
[2018-04-01] MEDS: PANTOPRAZOLE SODIUM 40 MG VIAL IV SCH (10:11)
[2018-04-01] MEDS: DOCUSATE SODIUM 100 MG CAPSULE PO SCH (10:12)
[2018-04-01] MEDS: SENNOSIDES/DOCUSATE 8.6-50 MG 1 EACH TABLET PEG SCH (10:12)
[2018-04-01] MEDS: FOLIC ACID 1 MG TABLET PEG SCH (10:12)
[2018-04-01] MEDS: LIDOCAINE 2% JELLY 5 ML TUBE TOP PRN (10:13)
[2018-04-01] MEDS: MULTIVITAMINS W-IRON TABLET, CHEWABLE PEG SCH (10:20)
[2018-04-01] MEDS: CARVEDILOL 3.125 MG TABLET PEG SCH ×2 (10:21→21:27)
--- NOTE | 2018-04-01 10:28 | PDOC PROGRESS REPORT ---
Subjective Progress Note for:: 04/01/18 Subjective:: ADARSH TOTH is a 77 year old male who presented from the [facility]. residential staff had indicated that the patient was acutely dyspneic and acutely more confused (or less responsive) than his usual state of chronic dementia, resulting in transport by emergency medical services to the emergency room. In the emergency room he was found to have a severe urinary tract infection with essentially pure pus present in a Meek catheter draining approximately 2 L upon irrigation of the catheter. A severe catheter related injury to the urethra was noted as resulted in a near complete hypospadias due to catheter induced erosion of the urethra and corpus cavernosum of the penile shaft. Additionally he was found to be severely hyperkalemic and hyperglycemic. His dyspnea was addressed utilizing BiPAP to which he responded well. Additionally was started on antibiotic therapy on empiric basis for his urinary tract infection and his hyperglycemia and hyperkalemia were treated by administration of insulin. He was admitted to the ICU for further evaluation and treatment. The patient has significant chronic dementia and is unable to contribute substantially or reliably to his medical care. 03/31/18: Adarsh is somewhat improved today. He is able to answer yes and no appropriately in response to simple questions, and speak single words that are easily identifiable as requests or complaints. This we would assume is his baseline mental status per report from his senior living. He did indicate that he has any pain. His white count and blood sugar have dropped considerably to much more normal levels and his electrolytes have stabilized nicely. Urine sensitivity results have not yet been returned but he is noted to have a gram negative scarlett present in greater than 100,000 colonies per milliliter in his urine. 04/01/18: Mr. Toth is again improved today. He is at his baseline for communication and cognition. He denies pain, dyspnea, nausea, muscle aches, headache and fever or chills. Urine culture shows Proteus mirabilis which is broadly sensitive to virtually all cephalosporins. His examination is essentially unremarkable with the exception of his chronic changes of left hemiparesis as previously noted. Chemistry evaluations show an improvement in his renal function with a steadily declining creatinine. Dolgic consultation will be obtained to evaluate for a alternative urine drainage site and also to evaluate for any possible repair for his penile injury. He will be moved to a medical bed as soon as possible and his antibiotics will be changed to Ancef IV for 1 more day and then an oral preparation may be given per PEG tube. Reason For Visit: UTI DUE TO URINARY INDWELLING, MEEK CATHETER, Physical Exam Vital Signs: Temp Pulse Resp BP Pulse Ox 98.1 F 75 11 L 147/59 H 93 04/01/18 06:00 04/01/18 07:41 04/01/18 08:03 04/01/18 08:03 04/01/18 08:03 Intake & Output 03/31/18 04/01/18 04/02/18 06:59 06:59 06:59 Intake Total 2046 4019 Output Total 1570 2150 200 Balance 476 1869 -200 Weight 81.8 kg 85.8 kg General appearance: PRESENT: no acute distress, cooperative Head exam: PRESENT: atraumatic, normocephalic Eye exam: PRESENT: conjunctiva pink. ABSENT: conjunctival injection Ear exam: PRESENT: normal external ear exam. ABSENT: drainage Mouth exam: PRESENT: moist, neck supple Neck exam: ABSENT: thyromegaly, tracheal deviation Respiratory exam: PRESENT: clear to auscultation joaquin, symmetrical, unlabored Cardiovascular exam: PRESENT: RRR. ABSENT: bradycardia, clicks, diastolic murmur, gallop, rubs, systolic murmur, tachycardia Pulses: PRESENT: normal carotid pulses, normal radial pulses Vascular exam: PRESENT: normal capillary refill. ABSENT: pallor GI/Abdominal exam: PRESENT: normal bowel sounds, soft. ABSENT: distended, tenderness Rectal exam: PRESENT: deferred Gentrourinary exam: PRESENT: indwelling catheter, other - Penile injury as previously described remains unchanged. Extremities exam: PRESENT: other - Status post left BKA. ABSENT: joint swelling Musculoskeletal exam: ABSENT: deformity, dislocation, tenderness Neurological exam: PRESENT: alert, awake, oriented to person, oriented to place , oriented to situation, motor sensory deficit - Left hemiparesis is noted unchanged from previous exams. ABSENT: oriented to time Psychiatric exam: PRESENT: appropriate affect, normal mood Skin exam: ABSENT: jaundice, rash, urticaria Results Laboratory Results: 04/01/18 03:55 04/01/18 03:55 03/31/18 04/01/18 04/01/18 06:00 03:55 03:55 WBC 7.9 RBC 4.29 L Hgb 9.8 L Hct 30.3 L MCV 71 L MCH 22.9 L MCHC 32.3 RDW 22.1 H Plt Count 194 Seg Neutrophils % 79.3 H Lymphocytes % 13.4 Monocytes % 5.1 Eosinophils % 1.8 Basophils % 0.4 Absolute Neutrophils 6.2 Absolute Lymphocytes 1.0 Absolute Monocytes 0.4 Absolute Eosinophils 0.1 Absolute Basophils 0.0 Sodium 141.0 Potassium 4.6 Chloride 109 H Carbon Dioxide 22 Anion Gap 10 BUN 105 H Creatinine 2.45 H Est GFR ( Amer) 31 L Est GFR (Non-Af Amer) 26 L Glucose 69 L Calcium 8.8 Magnesium 2.7 H TSH 1.49 Free T4 1.48 Free T3 pg/mL 2.18 L Impressions: Chest X-Ray 03/30/18 00:00 IMPRESSION: 1. No acute pulmonary process identified. Assessment & Plan - Diagnosis (1) Hyperkalemia Is this a current diagnosis for this admission?: Yes Plan: Treated with IV fluids and insulin also used for treatment of hyperglycemia with excellent resolution. Potassium levels have remained stable since initial treatment. (2) UTI (urinary tract infection) due to urinary indwelling Meek catheter Is this a current diagnosis for this admission?: Yes Plan: The patient was placed on empiric antibiotic therapy utilizing ertapenem, will also be treated with maintenance IV fluids to support adequate urine output. White blood count has decreased in urine output is excellent. Patient seems to be recovering his more confused state and all things are essentially returning to baseline. Urine culture has grown Proteus mirabilis broadly sensitive to cephalosporin antibiotics. Antibiotics will be changed to Ancef for another 24 hours and then an oral preparation may be given per G-tube. (3) ARF (acute renal failure) Qualifiers: Acute renal failure type: unspecified Qualified Code(s): N17.9 - Acute kidney failure, unspecified Is this a current diagnosis for this admission?: Yes Plan: Patient is being treated with IV fluids and close monitoring of his laboratory values. Underlying additional contributing factors to renal failure including urinary tract infection are being treated with IV antibiotics and supportive care. Patient will have G-tube feedings and flushes started again today. We will be able to decrease or discontinue IV fluids by tomorrow hopefully. Renal functions have been gradually improving on a daily basis. (4) Hyperglycemia due to type 2 diabetes mellitus Qualifiers: Diabetes mellitus terminal makeup operator insulin use: with terminal makeup operator use Qualified Code( s): E11.65 - Type 2 diabetes mellitus with hyperglycemia; Z79.4 - buttermaker continuous churn ( current) use of insulin; Z79.4 - penitentiary (current) use of insulin; Z79.4 - buttermaker continuous churn (current) use of insulin; Z79.4 - buttermaker continuous churn (current) use of insulin Is this a current diagnosis for this admission?: Yes Plan: Will use lispro insulin for treatment of the hyperglycemia this will also aid in the treatment of the patient's hyperkalemia. We will monitor lab values closely on a serial basis. - Time Time Spent with patient: 35 or more minutes Medications reviewed and adjusted accordingly: Yes Anticipated discharge: SNF Within: within 72 hours
[2018-04-01] MEDS: CEFAZOLIN 1 GM/D5W RTU 1 GM/50 ML RTUPB IV SCH ×3 (12:32→23:30)
[2018-04-01] MEDS: LANSOPRAZOLE 30 MG TAB.RAP.DR PEG SCH (18:03)
[2018-04-01] MEDS: BACITRACIN ZINC OINTMENT 15 GM TP SCH (18:20)
[2018-04-01] MEDS: INSULIN GLARGINE,HUM.REC.ANLOG 300 UNIT/3 ML INSULN.PEN SUBCUT SCH (21:27)
[2018-04-01] MEDS: LATANOPROST 0.005% OPH SOLN 2.5 ML OU SCH (21:28)
[2018-04-01] MEDS: ATORVASTATIN CALCIUM 10 MG TABLET PEG SCH (21:32)
[2018-04-02 04:38] LABS: ABSOLUTE EOSINOPHILS # (AUTO) 0.1 10^3/uL (0.0-0.6); ABSOLUTE LYMPHOCYTES (AUTO) 0.7 10^3/uL (0.5-4.7); ABSOLUTE MONOCYTES (AUTO) 0.4 10^3/uL (0.1-1.4); ABSOLUTE NEUT (AUTO) 3.1 10^3/uL (1.7-8.2); BASOPHILS % (AUTO) 0.4 % (0-2); HEMATOCRIT 29.8 % (37.9-51.0); HEMOGLOBIN 9.5 g/dL (13.5-17.0); LYMPHOCYTES % (AUTO) 16.9 % (13-45); MEAN CORPUSCULAR HEMOGLOBIN 22.8 pg (27.0-33.4); MEAN CORPUSCULAR VOLUME 71 fl (80-97); PLATELET COUNT 195 10^3/uL (150-450); RED BLOOD COUNT 4.18 10^6/uL (4.35-5.55); RED CELL DISTRIBUTION WIDTH 21.7 % (11.5-14.0); SEGMENTED NEUTROPHILS % (AUTO) 71.7 % (42-78); TOTAL CELLS COUNTED % (AUTO) 100 %; WHITE BLOOD COUNT 4.4 10^3/uL (4.0-10.5)
[2018-04-02 04:48] LABS: ANION GAP 6 (5-19); BLOOD UREA NITROGEN 94 mg/dL (7-20); CALCIUM 8.8 mg/dL (8.4-10.2); CARBON DIOXIDE 25 mmol/L (22-30); CHLORIDE 111 mmol/L (98-107); GLUCOSE 115 mg/dL (75-110); POTASSIUM 4.7 mmol/L (3.6-5.0); SODIUM 142.3 mmol/L (137-145)
[2018-04-02] MEDS: LANSOPRAZOLE 30 MG TAB.RAP.DR PEG SCH ×2 (05:07→18:15)
[2018-04-02] MEDS: HEPARIN SOD (PORCINE) 5,000 UNIT/ML 1 ML SYRINGE SUBCUT SCH ×3 (05:07→23:02)
[2018-04-02] MEDS: CEFAZOLIN 1 GM/D5W RTU 1 GM/50 ML RTUPB IV SCH (05:07)
--- NOTE | 2018-04-02 10:33 | PDOC PROGRESS REPORT ---
Subjective Progress Note for:: 04/02/18 Subjective:: ADARSH RODRIGUEZ is a 77 year old male who presented from the [facility]. half-way staff had indicated that the patient was acutely dyspneic and acutely more confused (or less responsive) than his usual state of chronic dementia, resulting in transport by emergency medical services to the emergency room. In the emergency room he was found to have a severe urinary tract infection with essentially pure pus present in a Meek catheter draining approximately 2 L upon irrigation of the catheter. A severe catheter related injury to the urethra was noted as resulted in a near complete hypospadias due to catheter induced erosion of the urethra and corpus cavernosum of the penile shaft. Additionally he was found to be severely hyperkalemic and hyperglycemic. His dyspnea was addressed utilizing BiPAP to which he responded well. Additionally was started on antibiotic therapy on empiric basis for his urinary tract infection and his hyperglycemia and hyperkalemia were treated by administration of insulin. He was admitted to the ICU for further evaluation and treatment. The patient has significant chronic dementia and is unable to contribute substantially or reliably to his medical care. 03/31/18: Adarsh is somewhat improved today. He is able to answer yes and no appropriately in response to simple questions, and speak single words that are easily identifiable as requests or complaints. This we would assume is his baseline mental status per report from his correction. He did indicate that he has any pain. His white count and blood sugar have dropped considerably to much more normal levels and his electrolytes have stabilized nicely. Urine sensitivity results have not yet been returned but he is noted to have a gram negative scarlett present in greater than 100,000 colonies per milliliter in his urine. 04/01/18: Mr. Rodriguez is again improved today. He is at his baseline for communication and cognition. He denies pain, dyspnea, nausea, muscle aches, headache and fever or chills. Urine culture shows Proteus mirabilis which is broadly sensitive to virtually all cephalosporins. His examination is essentially unremarkable with the exception of his chronic changes of left hemiparesis as previously noted. Chemistry evaluations show an improvement in his renal function with a steadily declining creatinine. Urololgic consultation will be obtained to evaluate for a alternative urine drainage site and also to evaluate for any possible repair for his penile injury. He will be moved to a medical bed as soon as possible and his antibiotics will be changed to Ancef IV for 1 more day and then an oral preparation may be given per PEG tube. 04/02/18: Adarsh remains very stable. He denies pain in his chest, abdomen, back, arms and legs. He will be converted to oral antibiotics today and should be ready for discharge/return to his correction tomorrow. His creatinine continues to fall and he has been seen by Dr. Tuttle in consultation for urology to provide ongoing management. Reason For Visit: UTI DUE TO URINARY INDWELLING, MEEK CATHETER, Physical Exam Vital Signs: Temp Pulse Resp BP Pulse Ox 97.9 F 74 15 126/54 H 100 04/02/18 08:00 04/02/18 08:00 04/02/18 08:00 04/02/18 08:00 04/02/18 08:00 Intake & Output 04/01/18 04/02/18 04/03/18 06:59 06:59 06:59 Intake Total 4019 3555 Output Total 2150 2000 250 Balance 1869 1555 -250 Weight 85.8 kg 86.3 kg General appearance: PRESENT: no acute distress, cooperative Head exam: PRESENT: atraumatic, normocephalic Eye exam: ABSENT: periorbital swelling, scleral icterus Ear exam: ABSENT: bleeding, drainage, normal external ear exam Mouth exam: PRESENT: moist, neck supple Neck exam: ABSENT: thyromegaly, tracheal deviation Respiratory exam: PRESENT: clear to auscultation joaquin, symmetrical, unlabored Cardiovascular exam: PRESENT: RRR. ABSENT: clicks, diastolic murmur, gallop, rubs, systolic murmur Vascular exam: PRESENT: normal capillary refill. ABSENT: pallor GI/Abdominal exam: PRESENT: normal bowel sounds, soft Rectal exam: PRESENT: deferred Extremities exam: PRESENT: other - S/P Left BKA. ABSENT: clubbing, joint swelling, pedal edema Musculoskeletal exam: ABSENT: ambulatory, deformity, dislocation, tenderness Neurological exam: PRESENT: alert, awake, oriented to person, oriented to place , oriented to situation, motor sensory deficit - Left hemiparesis. ABSENT: oriented to time Psychiatric exam: PRESENT: appropriate affect, normal mood Skin exam: ABSENT: jaundice, rash, urticaria Results Laboratory Results: 04/02/18 04:20 04/02/18 04:20 04/02/18 04/02/18 04:20 04:20 WBC 4.4 RBC 4.18 L Hgb 9.5 L Hct 29.8 L MCV 71 L MCH 22.8 L MCHC 32.0 RDW 21.7 H Plt Count 195 Seg Neutrophils % 71.7 Lymphocytes % 16.9 Monocytes % 9.0 Eosinophils % 2.0 Basophils % 0.4 Absolute Neutrophils 3.1 Absolute Lymphocytes 0.7 Absolute Monocytes 0.4 Absolute Eosinophils 0.1 Absolute Basophils 0.0 Sodium 142.3 Potassium 4.7 Chloride 111 H Carbon Dioxide 25 Anion Gap 6 BUN 94 H Creatinine 2.07 H Est GFR ( Amer) 38 L Est GFR (Non-Af Amer) 31 L Glucose 115 H Calcium 8.8 Magnesium 2.7 H Impressions: Chest X-Ray 03/30/18 00:00 IMPRESSION: 1. No acute pulmonary process identified. Assessment & Plan - Diagnosis (1) Hyperkalemia Is this a current diagnosis for this admission?: Yes Plan: Treated with IV fluids and insulin also used for treatment of hyperglycemia with excellent resolution. Potassium levels have remained stable since initial treatment. (2) UTI (urinary tract infection) due to urinary indwelling Meek catheter Is this a current diagnosis for this admission?: Yes Plan: Admission: The patient was placed on empiric antibiotic therapy utilizing ertapenem, will also be treated with maintenance IV fluids to support adequate urine output. 1st day of care: White blood count has decreased in urine output is excellent. Patient seems to be recovering his more confused state and all things are essentially returning to baseline. 2nd day of care: Urine culture has grown Proteus mirabilis broadly sensitive to cephalosporin antibiotics. Switch antibiotics to IV Ancef 1gm q6hr. 3rd day of care: Keflex 1gm per PEG BIDACBS started today. (3) ARF (acute renal failure) Qualifiers: Acute renal failure type: unspecified Qualified Code(s): N17.9 - Acute kidney failure, unspecified Is this a current diagnosis for this admission?: Yes Plan: Admission: Patient is being treated with IV fluids and close monitoring of his laboratory values. Underlying additional contributing factors to renal failure including urinary tract infection are being treated with IV antibiotics and supportive care. 2nd day of care: Patient will have G-tube feedings and flushes started again today. We will be able to decrease or discontinue IV fluids by tomorrow hopefully. Renal functions have been gradually improving on a daily basis. 3rd day of care: Scheduled IV fluids and medications discontinued. On PEG tube bolus feedings plus flushes. Creatinine continues to fall. (4) Hyperglycemia due to type 2 diabetes mellitus Qualifiers: Diabetes mellitus keno terminal operator insulin use: with keno terminal operator use Qualified Code( s): E11.65 - Type 2 diabetes mellitus with hyperglycemia; Z79.4 - assisted ( current) use of insulin; Z79.4 - assisted (current) use of insulin; Z79.4 - assisted (current) use of insulin; Z79.4 - keno terminal operator (current) use of insulin Is this a current diagnosis for this admission?: Yes Plan: Admission: Will use lispro insulin for treatment of the hyperglycemia this will also aid in the treatment of the patient's hyperkalemia. We will monitor lab values closely on a serial basis. - Time Time Spent with patient: 35 or more minutes Medications reviewed and adjusted accordingly: Yes Anticipated discharge: SNF Within: within 24 hours
[2018-04-02] MEDS: DOXAZOSIN MESYLATE 1 MG TABLET PEG SCH (12:14)
[2018-04-02] MEDS: FOLIC ACID 1 MG TABLET PEG SCH (12:15)
[2018-04-02] MEDS: FERROUS SULFATE LIQUID 300 MG/5 ML UDC PEG SCH (12:15)
[2018-04-02] MEDS: CARVEDILOL 3.125 MG TABLET PEG SCH ×2 (12:15→22:58)
[2018-04-02] MEDS: BACITRACIN ZINC OINTMENT 15 GM TP SCH ×2 (12:15→18:15)
[2018-04-02] MEDS: ASCORBIC ACID 500 MG TABLET PEG SCH ×3 (12:15→18:15)
[2018-04-02] MEDS: SENNOSIDES/DOCUSATE 8.6-50 MG 1 EACH TABLET PEG SCH (12:16)
[2018-04-02] MEDS: CEPHALEXIN 250 MG/5 ML SUSP 100 ML PEG SCH ×2 (12:35→16:05)
[2018-04-02] MEDS: ATORVASTATIN CALCIUM 10 MG TABLET PEG SCH (22:58)
[2018-04-02] MEDS: INSULIN GLARGINE,HUM.REC.ANLOG 300 UNIT/3 ML INSULN.PEN SUBCUT SCH (23:03)
[2018-04-02] MEDS: LATANOPROST 0.005% OPH SOLN 2.5 ML OU SCH (23:06)
[2018-04-03] MEDS: LANSOPRAZOLE 30 MG TAB.RAP.DR PEG SCH ×2 (06:13→17:11)
[2018-04-03] MEDS: HEPARIN SOD (PORCINE) 5,000 UNIT/ML 1 ML SYRINGE SUBCUT SCH ×2 (06:14→13:15)
[2018-04-03] MEDS: CEPHALEXIN 250 MG/5 ML SUSP 100 ML PEG SCH ×2 (09:09→17:10)
[2018-04-03] MEDS: DOXAZOSIN MESYLATE 1 MG TABLET PEG SCH (09:11)
[2018-04-03] MEDS: ASCORBIC ACID 500 MG TABLET PEG SCH ×3 (09:11→17:11)
[2018-04-03] MEDS: CARVEDILOL 3.125 MG TABLET PEG SCH (09:12)
[2018-04-03] MEDS: SENNOSIDES/DOCUSATE 8.6-50 MG 1 EACH TABLET PEG SCH (09:12)
[2018-04-03] MEDS: FERROUS SULFATE LIQUID 300 MG/5 ML UDC PEG SCH (09:12)
[2018-04-03] MEDS: FOLIC ACID 1 MG TABLET PEG SCH (09:12)
[2018-04-03] MEDS: LIDOCAINE 2% JELLY 5 ML TUBE TOP PRN (09:13)
[2018-04-03] MEDS: BACITRACIN ZINC OINTMENT 15 GM TP SCH ×2 (09:13→17:12)
[2018-04-03] MEDS: MUPIROCIN 2% OINTMENT 22 GM TP SCH ×2 (11:48→17:12)
[2018-04-03] MEDS: SULFAMETHOXAZOLE/TRIMETHOPRIM 800-160 MG/20 ML UDCUP PEG SCH ×2 (11:48→17:10)
--- NOTE | 2018-04-03 15:04 | PDOC TRANSFER SUMMARY ---
General - Admit/Disc Date/PCP Admission Date/Primary Care Provider: 03/30/18 08:34 CHAD HILLIARD Discharge Date: 04/03/18 - Discharge Diagnosis (1) Severe sepsis with septic shock Is this a current diagnosis for this admission?: Yes Summary: Adarsh came to the emergency room with a fever and his blood pressure is initially affected within dropped substantially and he required pressor support as well as fluids. After he had become fully hydrated and antibiotic therapy had been initiated his blood pressure recovered and he no longer required pressors. His blood pressure has remained stable since that time. (2) Hyperkalemia Is this a current diagnosis for this admission?: Yes Summary: Mr. Rodriguez's hyperkalemia resolved with IV rehydration during the early portion of his hospital course. (3) UTI (urinary tract infection) due to urinary indwelling Catalan catheter Is this a current diagnosis for this admission?: Yes Summary: Adarsh's chronic indwelling Catalan had become infected and also had eroded through the urethral meatus ventrally and passed through the corpus cavernosum resulting in the urethra being intact only at the base of the penis and scrotum essentially forming a complete hypospadias. His urine was extremely purulent and Proteus mirabilis as well as methicillin-resistant Staphylococcus aureus were found in the culture. He responded well to antibiotic therapy and was eventually able to be converted to enteral therapy as prescribed. (4) ARF (acute renal failure) Is this a current diagnosis for this admission?: Yes Summary: Patient's acute renal failure responded well to intravenous rehydration and pressor support initially. His renal function is continued to recover throughout his hospital course. (5) Hyperglycemia due to type 2 diabetes mellitus Is this a current diagnosis for this admission?: Yes Summary: Adarsh initially had hyperglycemia with his acute infection and illness however control of the infection rehydration and use of his Lantus insulin and sliding scale insulin in the form of lispro insulin has resulted in excellent diabetic control. - Additional Information Resuscitation Status: Full Code Discharge Diet: Diabetic, Tube Feeding (Comments) - Resume previous PEG tube diet Discharge Activity: Activity As Tolerated Home Medications: Acetaminophen [Tylenol] 650 mg PEG Q6HP PRN 03/30/18 Ascorbic Acid [Vitamin C 500 mg Tablet] 500 mg PEG TID 03/30/18 Atorvastatin Calcium [Lipitor 10 mg Tablet] 10 mg PEG QHS 03/30/18 Carvedilol [Coreg 3.125 mg Tablet] 3.125 mg PEG Q12 03/30/18 Folic Acid [Folvite 1 mg Tablet] 1 mg PEG DAILY 03/30/18 Insulin Glargine,Hum.rec.anlog [Lantus] 15 unit SQ QHS 03/30/18 Insulin Lispro [Humalog Insulin (Lispro) 100 unit/mL] 0 unit SUBCUT .SLD SCALE 03/30/18 Lansoprazole [Prevacid] 30 mg PEG BID 03/30/18 Latanoprost [Xalatan 0.005% Oph Soln 2.5 ml] 1 drop OU QHS 03/30/18 Sennosides/Docusate 8.6-50 mg [Senna Plus Tablet] 1 tab PEG DAILY 03/30/18 Bacitracin Zinc [Bacitracin Oint 15 gm] 1 applic TP BID tube 04/03/18 Cephalexin Monohydrate [Keflex 250 mg/5 ml Susp 100 ml] 1,000 mg PEG BIDACBS 10 Days #400 ml 04/03/18 Doxazosin Mesylate [Cardura 1 mg Tablet] 1 mg PEG DAILY #0 tablet 04/03/18 Ferrous Sulfate [Ferrous Sulfate Liquid 300 mg/5 ml Udcup] 300 mg PEG DAILY 30 Days #0 udc 04/03/18 Mupirocin [Bactroban 2% Ointment 22 gm] 1 applic TP BID tube 04/03/18 Sulfamethoxazole/Trimethoprim [Septra Susp 800-160 mg/20 ml] 20 ml PEG BID udc 04/03/18 History of Present Illness Admission Date/PCP: ADARSH RODRIGUEZ is a 77 year old male who presented from the [facility]. [facility] staff had indicated that the patient was acutely dyspneic and acutely more confused (or less responsive) than his usual state of chronic dementia, resulting in transport by emergency medical services to the emergency room. Patient complains of: Altered mental status History of Present Illness: ADARSH RODRIGUEZ is a 77 year old male who presented from the [facility]. [facility] staff had indicated that the patient was acutely dyspneic and acutely more confused (or less responsive) than his usual state of chronic dementia, resulting in transport by emergency medical services to the emergency room. The patient has significant chronic dementia and is unable to contribute substantially or reliably to his medical care. Hospital Course Hospital Course: In the emergency room he was found to have a severe urinary tract infection with essentially pure pus present in a Catalan catheter draining approximately 2 L upon irrigation of the catheter. A severe catheter related injury to the urethra was noted as resulted in a near complete hypospadias due to catheter induced erosion of the urethra and corpus cavernosum of the penile shaft. Additionally he was found to be severely hyperkalemic and hyperglycemic. His dyspnea was addressed utilizing BiPAP to which he responded well. Additionally was started on antibiotic therapy on empiric basis for his urinary tract infection and his hyperglycemia and hyperkalemia were treated by administration of insulin. He was admitted to the ICU for further evaluation and treatment. The patient has significant chronic dementia and is unable to contribute substantially or reliably to his medical care. 03/31/18: Adarsh is somewhat improved today. He is able to answer yes and no appropriately in response to simple questions, and speak single words that are easily identifiable as requests or complaints. This we would assume is his baseline mental status per report from his care home. He did indicate that he has any pain. His white count and blood sugar have dropped considerably to much more normal levels and his electrolytes have stabilized nicely. Urine sensitivity results have not yet been returned but he is noted to have a gram negative scarlett present in greater than 100,000 colonies per milliliter in his urine. 04/01/18: Mr. Rodriguez is again improved today. He is at his baseline for communication and cognition. He denies pain, dyspnea, nausea, muscle aches, headache and fever or chills. Urine culture shows Proteus mirabilis which is broadly sensitive to virtually all cephalosporins. His examination is essentially unremarkable with the exception of his chronic changes of left hemiparesis as previously noted. Chemistry evaluations show an improvement in his renal function with a steadily declining creatinine. Urololgic consultation will be obtained to evaluate for a alternative urine drainage site and also to evaluate for any possible repair for his penile injury. He will be moved to a medical bed as soon as possible and his antibiotics will be changed to Ancef IV for 1 more day and then an oral preparation may be given per PEG tube. 04/02/18: Adarsh remains very stable. He denies pain in his chest, abdomen, back, arms and legs. He will be converted to oral antibiotics today and should be ready for discharge/return to his care home tomorrow. His creatinine continues to fall and he has been seen by Dr. Tuttle in consultation for urology to provide ongoing management. 04/03/18: Adarsh continues to do very well without pain or complaints. He is happy to hear that he can go back to his home today and offered thanks to me and his nurse for taking care of him. Physical Exam Vital Signs: Temp Pulse Resp BP Pulse Ox 96.6 F L 73 20 110/52 L 91 L 04/03/18 12:00 04/03/18 12:00 04/03/18 12:00 04/03/18 12:00 04/03/18 12:00 Intake & Output 04/02/18 04/03/18 04/04/18 06:59 06:59 06:59 Intake Total 3555 500 Output Total 1999 1790 475 Balance 1555 -1790 25 Weight 86.3 kg 83.9 kg General appearance: PRESENT: no acute distress, cooperative Head exam: PRESENT: atraumatic, normocephalic Eye exam: PRESENT: conjunctiva pink. ABSENT: nystagmus, periorbital swelling, scleral icterus Ear exam: PRESENT: normal external ear exam. ABSENT: bleeding, drainage Mouth exam: PRESENT: moist, neck supple Neck exam: ABSENT: thyromegaly, tracheal deviation Respiratory exam: PRESENT: clear to auscultation joaquin, symmetrical, unlabored Cardiovascular exam: PRESENT: RRR. ABSENT: bradycardia, clicks, diastolic murmur, gallop, rubs, systolic murmur, tachycardia Vascular exam: PRESENT: normal capillary refill. ABSENT: pallor GI/Abdominal exam: PRESENT: normal bowel sounds, soft, other - PEG tube noted in good position Rectal exam: PRESENT: deferred Gentrourinary exam: PRESENT: indwelling catheter, other - Ventral penile erosion resulting in a complete hypospadias Extremities exam: PRESENT: other - Left hemiparesis noted. ABSENT: clubbing, joint swelling, pedal edema Musculoskeletal exam: PRESENT: other - Status post left BKA. ABSENT: ambulatory , deformity, dislocation, tenderness Neurological exam: PRESENT: alert, awake, oriented to person, oriented to place , oriented to situation, other - Left hemiparesis noted. ABSENT: oriented to time Psychiatric exam: PRESENT: appropriate affect, normal mood Skin exam: ABSENT: jaundice, rash, urticaria Results Laboratory Results: 04/02/18 04:20 04/02/18 04:20 03/30/18 15:50 Penis Gram Stain - Final 03/30/18 15:50 Penis Wound Culture - Final Proteus Mirabilis Group B Beta Streptococcus Mrsa (Meth Resis Staph Aureus) No Neisseria Gonorrhoeae Impressions: Chest X-Ray 03/30/18 00:00 IMPRESSION: 1. No acute pulmonary process identified. Transfer Plan - Disposition Transfer Plan: Discharge to assisted facility ([facility]) via ambulance. - Time Spent with Patient Time spent with patient: Greater than 30 Minutes Qualifiers - * PATIENT BEING DISCHARGED WITH ANY OF THE FOLLOWING DIAGNOSIS: No Plan Discharge Plan: Patient will be returned to [facility] assisted facility via ambulance today. Time Spent: Greater than 30 Minutes
[2018-04-03 16:47] VITALS: BP 121/59
== END 2018-04-03 18:00 | DRG 698 ==
LOC: ER 05:39 → EH 08:34 → ICU 13:18
PROVIDERS: ADMIT Emergency Medicine; ATTEND Emergency Medicine
PROC: 5A09457 Assistance with Respiratory Ventilation, 24-96 Consecutive Hours, Continuous Positive Airway Pressure (ICD-10-PCS; principal; 2018-03-30)
DX: T83.511A Infection and inflammatory reaction due to indwelling urethral catheter, initial encounter (principal); A41.9 Sepsis, unspecified organism; R65.21 Severe sepsis with septic shock; N17.9 Acute kidney failure, unspecified; E87.5 Hyperkalemia; N34.2 Other urethritis; B96.4 Proteus (mirabilis) (morganii) as the cause of diseases classified elsewhere; B95.62 Methicillin resistant Staphylococcus aureus infection as the cause of diseases classified elsewhere; E11.65 Type 2 diabetes mellitus with hyperglycemia; B95.1 Streptococcus, group B, as the cause of diseases classified elsewhere; I25.10 Atherosclerotic heart disease of native coronary artery without angina pectoris; E78.00 Pure hypercholesterolemia, unspecified; E11.51 Type 2 diabetes mellitus with diabetic peripheral angiopathy without gangrene; J44.9 Chronic obstructive pulmonary disease, unspecified; F03.90 Unspecified dementia, unspecified severity, without behavioral disturbance, psychotic disturbance, mood disturbance, and anxiety; K21.9 Gastro-esophageal reflux disease without esophagitis; M19.90 Unspecified osteoarthritis, unspecified site; F32.9 Major depressive disorder, single episode, unspecified; D64.9 Anemia, unspecified; N40.1 Benign prostatic hyperplasia with lower urinary tract symptoms; I10 Essential (primary) hypertension; I25.2 Old myocardial infarction; Z79.899 Other long term (current) drug therapy; Z79.4 Long term (current) use of insulin; Z95.5 Presence of coronary angioplasty implant and graft; Z89.512 Acquired absence of left leg below knee; Z93.1 Gastrostomy status; Z87.891 Personal history of nicotine dependence
CPT/HCPCS: 36415; 71045; 80048; 80053; 82803; 82962; 83036; 83605; 83735; 83880; 84439; 84443; 84481; 84484; 85025; 85610; 87040; 87070; 87077; 87086; 87088; 87186; 87205; 93005; 93010; 94660; G8978-GP; G8979-GP; G8980-GP; J0610; J0690; J1335; J1644; J1815; J2543; J3490; S0164

== ENCOUNTER 2018-08-08 13:58 | Emergency (ER) | payer MEDICARE, MEDICAID ==
--- NOTE | 2018-08-08 14:48 | ER Document Report ---
ED General - General Stated Complaint: BLOOD IN URINE Time Seen by Provider: 08/08/18 14:11 Primary Care Provider: [facility] [Provider Group] - 08/09/18 RADHA KAPOOR MD [NO LOCAL MD] - 08/09/18 Mode of Arrival: Medic Information source: Patient, Emergency Med Personnel, Outside Facility Records TRAVEL OUTSIDE OF THE [place] IN LAST 30 DAYS: No - HPI Patient complains to provider of: Hematuria Onset: Other - 77-year-old male with chronic indwelling Catalan catheter presents for evaluation of hematuria which was noticed today. His catheter was flushed twice thereafter with poor output as a result was sent to the emergency room for further evaluation rest of history is limited secondary to this patient's profound dementia. - Related Data Allergies/Adverse Reactions: No Known Allergies Allergy (Verified 02/22/17 11:56) Past Medical History - General Information source: Patient, Emergency Med Personnel, Outside Facility Records Cannot obtain history due to: Dementia - Social History Smoking Status: Former Smoker Cigarette use (# per day): No Chew tobacco use (# tins/day): No Smoking Education Provided: No Frequency of alcohol use: None Drug Abuse: None Family History: Other - Unobtainable since patient is nonverbal and has dementia. - Past Medical History Cardiac Medical History: Reports: Hx Congestive Heart Failure, Hx Coronary Artery Disease - stent x 1, Hx Heart Attack - 2004, Hx Hypercholesterolemia, Hx Hypertension, Hx Peripheral Vascular Disease Pulmonary Medical History: Reports: Hx Asthma - as child, Hx COPD Denies: Hx Bronchitis, Hx Pneumonia, Hx Tuberculosis Neurological Medical History: Denies: Hx Seizures Endocrine Medical History: Reports: Hx Diabetes Mellitus Type 2 Renal/ Medical History: Reports: Hx Benign Prostatic Hyperplasia. Denies: Hx Peritoneal Dialysis GI Medical History: Reports: Hx Gastroesophageal Reflux Disease. Denies: Hx Hiatal Hernia, Hx Ulcer Musculoskeletal Medical History: Reports Hx Arthritis, Reports Hx Musculoskeletal Deformity - BKA Psychiatric Medical History: Reports: Hx Dementia, Hx Depression Denies: Hx Attention Deficit Hyperactivity Disorder, Hx Bipolar Disorder, Hx Schizophrenia Past Surgical History: Reports: Hx Abdominal Surgery, Hx Cardiac Surgery - defibrillator, Hx Coronary Stent, Hx Internal Defibrillator, Hx Orthopedic Surgery - left BKA, Hx Vascular Surgery - left groin, Other - PEG tube. Denies: Hx Open Heart Surgery - Immunizations Hx Diphtheria, Pertussis, Tetanus Vaccination: No Review of Systems - Review of Systems -: Yes All other systems reviewed and negative Physical Exam - Vital signs Vitals: Temp Pulse Resp BP Pulse Ox 98.4 F 88 18 134/80 H 96 08/08/18 14:03 08/08/18 14:03 08/08/18 14:03 08/08/18 14:03 08/08/18 14:03 - General General appearance: Appears well, Anxious In distress: Mild - HEENT Head: Normocephalic Eyes: Normal Conjunctiva: Normal Cornea: Normal Extraocular movements intact: Yes Eyelashes: Normal Pupils: PERRL - Respiratory Respiratory status: No respiratory distress Chest status: Nontender Breath sounds: Normal Chest palpation: Normal - Cardiovascular Rhythm: Regular Heart sounds: Normal auscultation Murmur: No - Abdominal Inspection: Obese Distension: Distended, Distended bladder Tenderness: Tender, Other - Palpable bladder - Genitourinary Tenderness: Other - Profoundly abnormal external genitalia split penis moving superiorly, minor drainage of indwelling Catalan catheter with some purulent material near the external meatus Scrotum: Hot to touch - Back Back: Normal, Nontender - Extremities General upper extremity: Normal inspection, Nontender, Normal color, Normal ROM, Normal temperature General lower extremity: Normal inspection, Nontender, Normal color, Normal ROM, Normal temperature, Normal weight bearing. No: Jeremias's sign - Neurological Neuro grossly intact: No Cognition: Confused, Inattentive, Short term memory loss Orientation: Disoriented to person, Disoriented to place Jonathan Coma Scale Eye Opening: Spontaneous Jonathan Coma Scale Verbal: Confused Jonathan Coma Scale Motor: Obeys Commands Garland Coma Scale Total: 14 Speech: Normal Cranial nerves: Normal Motor strength normal: LUE, RUE, LLE, RLE Course - Re-evaluation Re-evalutation: 08/08/18 20:48 77-year-old male with hematuria and a chronic indwelling Catalan catheter. Evaluation this patient has some hematuria it is back what appears to be a draining Catalan catheter. Patient started to complain of pain in the abdomen, performed a bladder scan which demonstrated approximately 300 mL's of urine in the bladder. Attempted to flush patient's bladder utilizing saline, following approximately 5 00 mL of instilled normal saline minimal output was obtained. Bedside ultrasound demonstrated that this patient had a profoundly dilated and enlarged bladder with what appears to be evidence of a large amount of blood in the bladder. Thereafter patient's 14 [place] catheter was exchanged over a wire with a clean fresh 14 [place] catheter, following placement minimal urine output was obtained as well as some blood and clots. As this clotted off and stop draining replaced a guidewire, a 22 [place] coud catheter was placed and continuous bladder irrigation was initiated. Profuse bloody urine began to be expressed through the catheter. Discussed this case with the on-call urologist at [facility] he notes that continuous bladder irrigation will not appropriately drained this volume of clot. Because of the profound volume of clot approximately 2 L of blood he thought was more appropriate to aggressively flush catheter and try and evacuate clot. Subsequently patient was aggressively hand irrigated forcefully utilizing water to extract clot after approximately 1 hour of push pull irrigation of the bladder a copious amount of blood clot had been expressed from the bladder. Believe that this patient is likely safe for outpatient follow-up with the urologist as the urologist said he does not think this requires urgent intervention so long as the catheter is draining. The patient's abdominal examination is improved from previous, his have a G-tube in place and we have administered fluids for him as I do think he is low level dehydrated at this time with his elevated BUN to creatinine ratio. He will be dispatched back to his nursing facility with return precautions and follow-up next day in urology clinic. - Vital Signs Vital signs: Temp Pulse Resp BP Pulse Ox 98.7 F 143 H 19 127/81 H 99 08/09/18 02:20 08/08/18 17:35 08/09/18 02:08 08/09/18 02:08 08/09/18 02:08 - Laboratory Result Diagrams: 08/08/18 20:00 08/08/18 20:00 Laboratory results interpreted by me: 08/08/18 08/08/18 08/08/18 16:16 16:22 20:00 Hgb 11.4 L 11.4 L Hct 36.5 L 35.6 L MCV 79 L MCH 25.0 L 25.2 L MCHC 31.2 L RDW 19.1 H 18.9 H Plt Count 139 L 141 L Sodium Chloride BUN Glucose Urine Protein >=500 H Urine Glucose (UA) 50 H Urine Blood SMALL H Urine Ascorbic Acid 20 H 08/08/18 20:00 Hgb Hct MCV MCH MCHC RDW Plt Count Sodium 153.4 H Chloride 117 H BUN 52 H Glucose 142 H Urine Protein Urine Glucose (UA) Urine Blood Urine Ascorbic Acid Discharge - Discharge Clinical Impression: Urinary obstruction, Catheter (urine) change required Hematuria Qualifiers: Hematuria type: gross Qualified Code(s): R31.0 - Gross hematuria Condition: Stable Disposition: [facility] Instructions: Catalan Catheter Care (OM) Additional Instructions: You were seen today in the emergency department for the blood in you catheter. You need to follow up this week with a urologist. You should schedule an appointment if able so that they can evaluate your catheter issues. If you begin to not be able to pass urine from your catheter return to the emergency room. Referrals: [facility] [Provider Group] - 08/09/18 RADHA KAPOOR MD [NO LOCAL MD] - 08/09/18
[2018-08-08 16:24] LABS: ABSOLUTE EOSINOPHILS # (AUTO) 0.3 10^3/uL (0.0-0.6); ABSOLUTE LYMPHOCYTES (AUTO) 1.2 10^3/uL (0.5-4.7); ABSOLUTE MONOCYTES (AUTO) 0.3 10^3/uL (0.1-1.4); ABSOLUTE NEUT (AUTO) 2.6 10^3/uL (1.7-8.2); BASOPHILS % (AUTO) 0.9 % (0-2); HEMATOCRIT 36.5 % (37.9-51.0); HEMOGLOBIN 11.4 g/dL (13.5-17.0); MEAN CORPUSCULAR HGB CONC 31.2 g/dL (32.0-36.0); MEAN CORPUSCULAR VOLUME 80 fl (80-97); MONOCYTES % (AUTO) 6.3 % (3-13); PLATELET COUNT 139 10^3/uL (150-450); RED BLOOD COUNT 4.56 10^6/uL (4.35-5.55); RED CELL DISTRIBUTION WIDTH 19.1 % (11.5-14.0); SEGMENTED NEUTROPHILS % (AUTO) 59.8 % (42-78); TOTAL CELLS COUNTED % (AUTO) 100 %; WHITE BLOOD COUNT 4.3 10^3/uL (4.0-10.5)
[2018-08-08 16:57] LABS: APPEARANCE,URINE CLOUDY; BILIRUBIN,URINE NEGATIVE (NEGATIVE); COLOR,URINE YELLOW; GLUCOSE, URINE 50 mg/dL (NEGATIVE); KETONES,URINE NEGATIVE (NEGATIVE); LEUKOCYTE ESTERASE,URINE NEGATIVE (NEGATIVE); NITRITE,URINE NEGATIVE (NEGATIVE); PROTEIN,URINE >=500 mg/dL (NEGATIVE); URINE SPECIFIC GRAVITY 1.025; UROBILINOGEN,URINE NEGATIVE mg/dL (<2.0)
[2018-08-08] MEDS ORDERED: HALOPERIDOL 2 MG TABLET PO ONE (17:24)
[2018-08-08] MEDS ORDERED: FENTANYL CITRATE INJ/PF 100 MCG/2 ML AMPUL IM ONE (17:27)
[2018-08-08] MEDS ORDERED: FENTANYL CITRATE INJ/PF 100 MCG/2 ML AMPUL IV ONE (20:41)
[2018-08-08 21:17] LABS: ABSOLUTE EOSINOPHILS # (AUTO) 0.2 10^3/uL (0.0-0.6); ABSOLUTE LYMPHOCYTES (AUTO) 1.1 10^3/uL (0.5-4.7); ABSOLUTE MONOCYTES (AUTO) 0.4 10^3/uL (0.1-1.4); ABSOLUTE NEUT (AUTO) 4.3 10^3/uL (1.7-8.2); BASOPHILS % (AUTO) 0.4 % (0-2); EOSINOPHILS % (AUTO) 3.7 % (0-6); HEMATOCRIT 35.6 % (37.9-51.0); HEMOGLOBIN 11.4 g/dL (13.5-17.0); LYMPHOCYTES % (AUTO) 17.9 % (13-45); MEAN CORPUSCULAR HEMOGLOBIN 25.2 pg (27.0-33.4); MEAN CORPUSCULAR HGB CONC 32.1 g/dL (32.0-36.0); MEAN CORPUSCULAR VOLUME 79 fl (80-97); MONOCYTES % (AUTO) 5.9 % (3-13); PLATELET COUNT 141 10^3/uL (150-450); RED BLOOD COUNT 4.53 10^6/uL (4.35-5.55); RED CELL DISTRIBUTION WIDTH 18.9 % (11.5-14.0); SEGMENTED NEUTROPHILS % (AUTO) 72.1 % (42-78); TOTAL CELLS COUNTED % (AUTO) 100 %; WHITE BLOOD COUNT 5.9 10^3/uL (4.0-10.5)
[2018-08-08 21:31] LABS: ANION GAP 6 (5-19); BLOOD UREA NITROGEN 52 mg/dL (7-20); CALCIUM 9.4 mg/dL (8.4-10.2); CARBON DIOXIDE 30 mmol/L (22-30); CHLORIDE 117 mmol/L (98-107); GLUCOSE 142 mg/dL (75-110); POTASSIUM 4.7 mmol/L (3.6-5.0); SODIUM 153.4 mmol/L (137-145)
[2018-08-08] MEDS ORDERED: NORMAL SALINE 1000 ML 1,000 ML IV ONE (22:45)
[2018-08-09 02:09] VITALS: BP 127/81
== END 2018-08-09 02:21 ==
LOC: ER 13:58
DX: Z46.6 Encounter for fitting and adjustment of urinary device (principal); R31.0 Gross hematuria; N13.9 Obstructive and reflux uropathy, unspecified; Z87.891 Personal history of nicotine dependence; I50.9 Heart failure, unspecified; I25.10 Atherosclerotic heart disease of native coronary artery without angina pectoris; I11.0 Hypertensive heart disease with heart failure; J44.9 Chronic obstructive pulmonary disease, unspecified; E11.9 Type 2 diabetes mellitus without complications
CPT/HCPCS: 99284; 96372; 96360; 51702; 36415; 85025; 80048; 81001; C1769; J3010; J7030